=== PATIENT | female | born 1975 | race Caucasian/White ===

== ENCOUNTER → 2017-06-19 11:14 | Outpatient (CLI) | payer MEDICARE, SELFPAY ==
--- NOTE | 2017-06-19 11:19 | MRI_ITS ---
STUDY: MRI BRAIN WITHOUT CONTRAST REASON FOR EXAM: Female, 42 years old. FORGETFULLNESS, FAMILY H/O dementia, H/O PREVIOUS CONCUSSIONS. TECHNIQUE: Standardized multiplanar fat and water weighted pulse sequences were obtained. COMPARISON: None. FINDINGS: Normal size of the ventricles and extra-axial spaces for the patient's age. Normal white matter tracts of the supratentorial brain. Normal bilateral basal ganglia. Normal thalami. There is no extra-axial fluid accumulation. Normal flow voids within the major intracranial circulation suggesting patency by spin echo criteria. Normal sella turcica, pituitary gland, infundibular stalk, optic chiasm and hypothalamus. Normal tectal plate and pineal gland. Normal midbrain, antoine and medulla. Normal cerebellum. Normal basal cisterns. Normal bilateral temporal bones. Normal bilateral internal auditory canals. No demonstrated orbital abnormality, within the constraints of a routine brain study. There is mucoperiosteal inflammatory disease of the paranasal sinuses consistent with mild chronic sinusitis. Normal calvarium and skull base. Normal visualized soft tissue structures. Normal visualized upper cervical spine. MRI/Brain without Contrast IMPRESSION: No acute intracranial abnormality or masses. Electronically Signed: Verna Ray MD at 12:11 EST Tel , Service support ,
== END ==
PROVIDERS: Family Provider Family Medicine; PCP Family Medicine; Visit Provider Family Medicine
DX: R68.89 Other general symptoms and signs (principal); Z82.0 Family history of epilepsy and other diseases of the nervous system
CPT/HCPCS: 70551

== ENCOUNTER 2018-01-06 14:48 | Emergency (ER) | payer MEDICARE, MEDICAID, SELFPAY ==
[2018-01-06 14:49] VITALS: BP 139/94; PULSE 94; RESP 18; TEMP 36.9; O2SAT 97; BMI 50.9
--- NOTE | 2018-01-06 15:22 | ED.VISSUMM ---
- ER Visit Summary Date of Service: 01/06/18 Chief Complaint: Back pain History of Present Illness: The patient is a 42 F with a history of chronic back pain, worsened over the past couple of months. She does report dark, foul-smelling urine. She states that she passed a kidney stone approximately 3 weeks ago. Today she felt nauseated because the pain was so severe. Patient has seen her primary care physician for the same. Physical Examination: Vital signs are unremarkable. Head neck examination unremarkable. Heart is regular rate and rhythm. Lung sounds are clear. Abdomen is soft nontender. Back examination reveals tenderness to the left lumbar paraspinals. Lower exam examination reveals 2+ edema to the right lower leg. Neuro exam reveals no deficits. Test Results: CBC is significant for white count of 16.2 with normal differential is noted. Chemistry studies normal. Urinalysis is normal. CT the flank shows no acute nephrolithiasis or obstruction. There does appear to be a stone in the bladder with a urachal remnant. Emergency Department Course and Treatment: Patient was given morphine and Zofran here. She was observed ambulate into the restroom without difficulty. On repeat evaluation patient does feel significantly improved. Her pain may very well be secondary to this recently passed stone. I see no sign of renal failure or kidney infection. She will be treated with [place] at home along with naproxen. She will return if symptoms worsen. She is to call her doctor tomorrow to arrange a follow-up appointment. Treatment Plan: [] Disposition: Discharge Impression: Left flank pain This note was generated with [employer] dictation software. It may contain incorrect words, spelling, and punctuation that were not noted in review of the chart prior to signing ED Disposition - Plan for ED Patient: Chief Complaint: Back Referrals: Thuan Prieto MD [NON-STAFF] -
[2018-01-06] MEDS: Ondansetron 4 MG/2 ML Vial IV (15:59)
[2018-01-06] MEDS: 0.9% Normal Saline 1,000 ML 150 ML IV (15:59)
[2018-01-06] MEDS: Morphine 4 MG/ML Syringe IV (15:59)
[2018-01-06 16:02] LABS: Bacteria 0 SEEN /hpf (None Seen); Mucous, Urine 0 SEEN /hpf (<or=2+); White Blood Cells 0 SEEN /hpf (0-5)
[2018-01-06 16:04] LABS: Color, Urine Yellow (Yellow); Glucose, Dipstick Normal (Normal); Ketone-Dipstick Negative (Negative); Leukocyte Esterase-Dipstick Negative /ul (Negative); Nitrite-Dipstick Negative (Negative); Occult Blood-Urine 25 /ul (Negative); Protein-Dipstick Negative (Negative); Urine Bilirubin Dipstick Negative (Negative); Urine Clarity Clear (Clear); Urine Urobilinogen Normal (Normal)
[2018-01-06 16:24] LABS: Red Blood Cells-Urine 0-5 SEEN /hpf (0-5); Squamous Epithelial Cells - UA 0-5 SEEN /hpf (5-10)
[2018-01-06 16:36] LABS: Anion Gap 8 (5-15); BUN 12 mg/dL (7-18); Calcium,Total 9.4 mg/dL (8.5-10.1); Chloride 105 mmol/L (98-107); Creatinine, Serum 0.75 mg/dL (0.55-1.02); EST Glomerular Filtration Rate 89 mL/min (>60); Est Glom Filt Rate - Afr Amer 108 mL/min (>60); Estimated Creatinine Clearance 82.66 ml/min; Glucose 88 mg/dL (74-106); Potassium 3.9 mmol/L (3.5-5.1); Sodium Level 138 mmol/L (136-145)
[2018-01-06 16:37] LABS: Absolute Neutrophil Count 10.3 X10^3/uL (2.0-7.7); Basophil# 0.02 X10^3/uL; Basophil% 0.1 % (0-1); Differential Indicated SCAN CRITERIA MET; Eosinophil# 0.26 X10^3/uL; Eosinophils% 1.6 % (0-5); Hematocrit 43.5 % (37-47); Hemoglobin 14.3 g/dl (12.0-15.0); Lymphocyte % 29.7 % (19-41); Mean Corp Hgb Conc 32.9 g/gl (32-36); Mean Corpuscular Hgb 29.3 pg (27.0-32.0); Mean Corpuscular Volume 89.1 fL (81-99); Mean Platelet Vol. 9.9 fl (6.2-12.0); Monocyte# 0.79 X10^3/uL; Monocyte% 4.9 % (0-10); Neutrophil # 10.25 X10^3/uL (2.7-7.7); Neutrophil % 63.5 % (47-70); POSITIVE COUNT NO; POSITIVE DIFFERENTIAL NO; POSITIVE MORPHOLOGY YES; Platelet Count 357 K/mm3 (150-450); RBC Distribution Width CV 13.4 % (11.6-14.6); RBC Distribution Width SD 43.8 fl (35.1-43.9); Red Blood Count 4.88 M/mm3 (4.2-5.4); White Blood Count 16.2 K/mm3 (4.4-11.0)
[2018-01-06 17:14] LABS: Differential Comment SCANNED
--- NOTE | 2018-01-06 17:15 | ED.DEP ---
ED Disposition - Plan for ED Patient: Disposition: Home or Assisted Living Chief Complaint: Back Instructions: ED Flank Pain Uncertain Cause, ED Stone Renal Passed Prescriptions: Hydrocodone/Acetaminophen [[place] 5-325 Tablet] 1 - 2 each PO 4X/DAY PRN PRN 3 Days #12 tablet PRN Reason: Pain Naproxen [Naprosyn] 500 mg PO BID PRN PRN #20 tab PRN Reason: Pain Referrals: Thuan Prieto MD [NON-STAFF] - 5-7 Days
[2018-01-06 17:24] VITALS: BP 125/95; PULSE 90; RESP 18; O2SAT 99
== END 2018-01-06 17:35 | disposition home or self-care (01) ==
PROVIDERS: Emergency Provider Emergency Medicine
DX: R10.9 Unspecified abdominal pain (principal); M54.5 Low back pain; G89.29 Other chronic pain; R60.0 Localized edema; N21.0 Calculus in bladder; J44.9 Chronic obstructive pulmonary disease, unspecified; K21.9 Gastro-esophageal reflux disease without esophagitis; F41.9 Anxiety disorder, unspecified; F32.9 Major depressive disorder, single episode, unspecified; Z87.442 Personal history of urinary calculi; Z87.440 Personal history of urinary (tract) infections; Z72.0 Tobacco use
CPT/HCPCS: 74176; 80048; 81001; 85025; 96361; 96374; 96375; 99284; J7030; A4216; J2405

== ENCOUNTER 2018-05-06 17:07 | Emergency (ER) | payer MEDICARE, MEDICAID, SELFPAY ==
[2018-05-06 17:09] VITALS: BP 145/114; PULSE 99; RESP 17; TEMP 37.2; O2SAT 99; BMI 51.7
--- NOTE | 2018-05-06 17:13 | EKG12_ITS ---
Test Reason : REPEAT Blood Pressure : / mmHG Vent. Rate : 084 BPM Atrial Rate : 084 BPM P-R Int : 130 ms QRS Dur : 084 ms QT Int : 386 ms P-R-T Axes : 015 057 028 degrees QTc Int : 456 ms Normal sinus rhythm Normal ECG Confirmed by ANGELA FRANCO, NELSON ([id number]), fan mail editor JYOTSNA MANSFIELD ([id number]) on 05/09/2018 3:17:43 PM Referred By: CUBA Confirmed By:NELSON MILLER MD
[2018-05-06 17:15] VITALS: O2SAT 100
[2018-05-06] MEDS: Aspirin 81 MG TAB.CHEW 324 MG PO (17:17)
--- NOTE | 2018-05-06 17:18 | RAD_ITS ---
STUDY: X-RAY CHEST REASON FOR EXAM: Female, 42 years old. Chest pain. TECHNIQUE: Single AP portable view of the chest. COMPARISON: December 18, 2013. FINDINGS: The lungs are clear and expanded. There is no demonstrated pleural abnormality. Normal size heart. Normal mediastinum and jalyn. Normal visualized pulmonary arteries. Normal visualized aortic arch and descending thoracic aorta. Normal visualized thoracic spine. Normal visualized ribs, clavicles, and shoulders. There is no demonstrated abnormality of the visualized soft tissue structures of the upper abdomen. RAD/Chest 1 View (Portable) IMPRESSION: Normal x-ray examination of the chest. Electronically Signed: Damian Berg MD at 17:42 EST , Service support ,
--- NOTE | 2018-05-06 17:20 | ED.VISSUMM ---
- ER Visit Summary Date of Service: 05/06/18 Chief Complaint: Chest pain and cough History of Present Illness: The patient is a 42 F past medical history of asthma and COPD. Patient is never had a cardiac catheterization. She denies any history of DVT or PE. No hemoptysis. No calf pain or swelling. She denies any recent travel or hospitalization. She states the last months she has had a chronic cough is been nonproductive primarily. Over the last 2 days she has developed pain in her left side of her back and now radiates to the left side of her chest. She denies any radiation to her abdomen or extremities. She denies any nausea, vomiting, diarrhea or any significant dyspnea. Her father has significant cardiac disease including prior MIs, stents and defibrillator. She smokes a pack of cigarettes a day. Patient also took 2 sublingual nitroglycerin today at home which really did not change her pain. Physical Examination: Middle-aged female no acute distress initial blood pressure elevated 145/114. Pulse is 90% room air no signs of hypoxia. No distress. H EENT exam unremarkable. Neck nontender no lymphadenopathy. Lungs clear to auscultation bilaterally. Heart regular rhythm rate about 90. No murmur. Anterior chest wall nontender. Abdomen soft. Obese. Nontender, nondistended, normal bowel sounds without peritoneal signs. No hernias or masses. Nondistended. Patient moving all 4 extremities. Neurovascularly intact. Calves are nontender without edema or cords. Neurologically she is awake alert. Moving all 4 extremities. 5 out of 5 loom fixer strength bilaterally. Dorsi plantar flexion intact. Anterior chest and back are completely nontender. No ecchymosis or bruising. No subcu air crepitance. Test Results: Patient undergo cardiac workup. House and otherwise unremarkable. Chemistries were normal with normal creatinine and gap. Initial troponin was normal. Second troponin II hours later was negative. First EKG shows sinus rhythm rate of 91 signs of SD or ischemia. Second repeat EKG was done showed a sinus rhythm rate 84 again was normal and unchanged from the first. Portable 1 view chest x-ray showed no acute abnormality. Normal mediastinum and aorta. Emergency Department Course and Treatment: P.o. aspirin Multiple repeat exams patient is doing well. On repeat exam she did have reproducible left lateral chest wall pain consistent with musculoskeletal etiology. She and I discussed all test results. She will be discharged home with outpatient follow-up. Treatment Plan: Tylenol and Motrin for pain. Follow-up with your doctor. Disposition: Discharge Impression: Acute chest pain secondary to left lateral chest wall pain This note was generated with [employer] dictation software. It may contain incorrect words, spelling, and punctuation that were not noted in review of the chart prior to signing ED Disposition - Plan for ED Patient: Disposition: Home or Assisted Living Chief Complaint: Chest Pain Instructions: ED Chest Pain Atypical Unkn Cause Referrals: Thuan Prieto [Primary Care Provider] - 3-5 Days if not improving Additional Instructions: Tylenol and Motrin for left chest wall pain. Ice to the area. Follow-up with his doctor if not improving.
--- NOTE | 2018-05-06 17:23 | ED.DCSUM_ITS ---
- ER Visit Summary Date of Service: 05/06/18 Chief Complaint: Chest pain and cough History of Present Illness: The patient is a 42 F past medical history of asthma and COPD. Patient is never had a cardiac catheterization. She denies any history of DVT or PE. No hemoptysis. No calf pain or swelling. She denies any recent travel or hospitalization. She states the last months she has had a chronic cough is been nonproductive primarily. Over the last 2 days she has developed pain in her left side of her back and now radiates to the left side of her chest. She denies any radiation to her abdomen or extremities. She denies any nausea, vomiting, diarrhea or any significant dyspnea. Her father has significant cardiac disease including prior MIs, stents and defibrillator. She smokes a pack of cigarettes a day. Patient also took 2 sublingual nitroglycerin today at home which really did not change her pain. Physical Examination: Middle-aged female no acute distress initial blood pressure elevated 145/114. Pulse is 90% room air no signs of hypoxia. No distress. H EENT exam unremarkable. Neck nontender no lymphadenopathy. Lungs clear to auscultation bilaterally. Heart regular rhythm rate about 90. No murmur. Anterior chest wall nontender. Abdomen soft. Obese. Nontender, nondistended, normal bowel sounds without peritoneal signs. No hernias or masses. Nondistended. Patient moving all 4 extremities. Neurovascularly intact. Calves are nontender without edema or cords. Neurologically she is awake alert. Moving all 4 extremities. 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 Dorsi plantar flexion intact. Anterior chest and back are completely nontender. No ecchymosis or bruising. No subcu air crepitance. Test Results: Patient undergo cardiac workup. House and otherwise unremarkable. Chemistries were normal with normal creatinine and gap. Initial troponin was normal. Second troponin II hours later was negative. First EKG shows sinus rhythm rate of 91 signs of OR or ischemia. Second repeat EKG was done showed a sinus rhythm rate 84 again was normal and unchanged from the first. Portable 1 view chest x-ray showed no acute abnormality. Normal mediastinum and aorta. Emergency Department Course and Treatment: P.o. aspirin Multiple repeat exams patient is doing well. On repeat exam she did have reproducible left lateral chest wall pain consistent with musculoskeletal etiology. She and I discussed all test results. She will be discharged home with outpatient follow-up. Treatment Plan: Tylenol and Motrin for pain. Follow-up with your doctor. Disposition: Discharge Impression: Acute chest pain secondary to left lateral chest wall pain This note was generated with [employer] dictation software. It may contain incorrect words, spelling, and punctuation that were not noted in review of the chart prior to signing ED Disposition - Plan for ED Patient: Disposition: Home or Assisted Living Chief Complaint: Chest Pain Instructions: ED Chest Pain Atypical Unkn Cause Referrals: Tuhan Prieto [Primary Care Provider] - 3-5 Days if not improving Additional Instructions: Tylenol and Motrin for left chest wall pain. Ice to the area. Follow-up with his doctor if not improving.
[2018-05-06 17:40] LABS: Absolute Lymphocyte Count 5.09 X10^3/ul (0.83-4.51); Basophil# 0.03 X10^3/uL; Basophil% 0.2 % (0-1); Eosinophils% 1.3 % (0-5); Hematocrit 41.9 % (37-47); Hemoglobin 13.8 g/dl (12.0-15.0); Lymphocyte # 5.09 X10^3/ul (4.0); Lymphocyte % 33.3 % (19-41); Mean Corp Hgb Conc 32.9 g/gl (32-36); Mean Corpuscular Hgb 29.6 pg (27.0-32.0); Mean Corpuscular Volume 89.7 fL (81-99); Monocyte# 0.89 X10^3/uL; Monocyte% 5.8 % (0-10); Neutrophil # 9.03 X10^3/uL (2.7-7.7); Neutrophil % 59.2 % (47-70); Platelet Count 373 K/mm3 (150-450); RBC Distribution Width CV 13.3 % (11.6-14.6); RBC Distribution Width SD 43.2 fl (35.1-43.9); Red Blood Count 4.67 M/mm3 (4.2-5.4); White Blood Count 15.3 K/mm3 (4.4-11.0)
[2018-05-06 17:44] LABS: Differential Indicated SCAN CRITERIA MET; POSITIVE COUNT NO; POSITIVE DIFFERENTIAL YES; POSITIVE MORPHOLOGY YES
[2018-05-06 18:13] LABS: Anion Gap 9 (5-15); BUN 17 mg/dL (7-18); BUN/Creat Ratio 21.8 RATIO (10-20); Calcium,Total 8.9 mg/dL (8.5-10.1); Chloride 107 mmol/L (98-107); Creatinine, Serum 0.78 mg/dL (0.55-1.02); EST Glomerular Filtration Rate 85 mL/min (>60); Est Glom Filt Rate - Afr Amer 103 mL/min (>60); Estimated Creatinine Clearance 79.48 ml/min; Glucose 111 mg/dL (74-106); Potassium 4.6 mmol/L (3.5-5.1); Sodium Level 139 mmol/L (136-145)
[2018-05-06 18:15] LABS: Atypical Lymphocyte 1+ %
--- NOTE | 2018-05-06 18:40 | EKG12_ITS ---
Test Reason : CP Blood Pressure : / mmHG Vent. Rate : 091 BPM Atrial Rate : 091 BPM P-R Int : 110 ms QRS Dur : 076 ms QT Int : 364 ms P-R-T Axes : 030 043 007 degrees QTc Int : 447 ms Sinus rhythm Confirmed by ANGELA FRANCO, NELSON ([id number]), marketing editor JYOTSNA MANSFIELD ([id number]) on 05/09/2018 3:18:03 PM Referred By: JOCELINE Confirmed By:NELSON MILLER MD
[2018-05-06] MEDS: HYDROcodone Bitartrate/Apap 5/325 Tablet PO (18:44)
[2018-05-06 19:04] VITALS: BP 128/84; PULSE 84; RESP 14; O2SAT 100
--- NOTE | 2018-05-06 19:43 | ED.DEP ---
ED Disposition - Plan for ED Patient: Disposition: Home or Assisted Living Chief Complaint: Chest Pain Instructions: ED Chest Pain Atypical Unkn Cause Referrals: Thuan Prieto [Primary Care Provider] - 3-5 Days if not improving Additional Instructions: Tylenol and Motrin for left chest wall pain. Ice to the area. Follow-up with his doctor if not improving.
[2018-05-06 19:47] VITALS: BP 123/89; PULSE 85; RESP 19; O2SAT 95
[2018-05-06 20:08] VITALS: BP 112/66; PULSE 84; RESP 15
[2018-05-06 20:11] VITALS: BP 112/66; PULSE 84; RESP 15
== END 2018-05-06 20:17 | disposition home or self-care (01) ==
PROVIDERS: Emergency Provider Emergency Medicine; Family Provider Family Medicine
DX: R07.89 Other chest pain (principal); J44.9 Chronic obstructive pulmonary disease, unspecified; R03.0 Elevated blood-pressure reading, without diagnosis of hypertension; F17.210 Nicotine dependence, cigarettes, uncomplicated; Z82.49 Family history of ischemic heart disease and other diseases of the circulatory system
CPT/HCPCS: 71045; 80048; 84484; 85025; 93005; 99285; A4216

== ENCOUNTER 2019-03-05 12:19 | Emergency (ER) | payer MEDICARE, MEDICAID, SELFPAY ==
[2019-03-05 12:22] VITALS: BP 131/75; PULSE 85; RESP 18; TEMP 36.9; O2SAT 97; BMI 42.9
--- NOTE | 2019-03-05 12:35 | RAD_ITS ---
STUDY: X-RAY CHEST REASON FOR EXAM: Female, 43 years old. 3 day history of cough and increasing shortness of breath. TECHNIQUE: PA and lateral views of the chest. COMPARISON: Comparison is made with prior study dated May 06, 2018. FINDINGS: The lungs are clear and expanded. Scattered calcified granulomas. There is no demonstrated pleural abnormality. Normal size heart. Normal mediastinum and jalyn. Normal visualized pulmonary arteries. Normal visualized aortic arch and descending thoracic aorta. There are mild degenerative changes of the visualized thoracic spine. Normal visualized ribs, clavicles, and shoulders. There is no demonstrated abnormality of the visualized soft tissue structures of the upper abdomen. RAD/Chest PA and Lateral IMPRESSION: Scattered calcified granulomas. No acute abnormalities. Electronically Signed: Michael Jacome, at 12:58 EDT , Service support ,
[2019-03-05 14:33] VITALS: BP 122/72; PULSE 81; RESP 14; O2SAT 96
--- NOTE | 2019-03-05 15:18 | ED.VISSUMM ---
- ER Visit Summary Date of Service: 03/05/19 Chief Complaint: Cough, shortness of breath History of Present Illness: The patient is a 43 F presenting with cough, shortness of breath. She states this started approximately one week ago. She has had a productive cough, shortness of breath, sore throat, subjective fever, chills. She states her daughter's friend who has strep throat used her toothbrush accidentally. She has been using albuterol at home with some improvement. She has painful swallowing, no difficulty swallowing. She denies PE/DVT risk factors. Denies chest pain. She has a history of asthma and COPD. She is a smoker. Physical Examination: Vitals are stable. Patient is afebrile. Alert no acute distress. HEENT exam pharyngeal erythema with no exudate. Uvula is midline Neck is supple. No meningismus Lungs are wheezing bilaterally. Heart is regular rate and rhythm. Abdomen is soft nontender nondistended. Extremities are unremarkable. Skin is warm and dry. No rash No focal neurologic deficit. Remainder of exam is unremarkable. Emergency Department Course and Treatment: Patient was given albuterol, Atrovent aerosols. Chest x-ray shows scattered calcified granulomas. No acute abnormalities. Rapid strep is negative. Pulse ox with ambulation is between 92-97% on room air. Patient feels much improved following breathing treatments. Lung sounds are improved. She is given prescription for prednisone and Tessalon. She states she has albuterol MDI at home. She is advised to follow up with her primary care physician. Advised return to ED for worsening complaints. Disposition: Discharge home Impression: Bronchitis This note was generated with [email or web address] dictation software. It may contain incorrect words, spelling, and punctuation that were not noted in review of the chart prior to signing ED Disposition - Plan for ED Patient: Disposition: Home or Assisted Living Instructions: BRONCHITIS with Wheezing (Adult) Prescriptions: Prednisone [Deltasone] 40 mg PO DAILY #10 tab Prescription Printed Benzonatate [Tessalon Perle] 200 mg PO TID PRN PRN #20 cap PRN Reason: Cough Prescription Printed Referrals: Thuan Prieto [Primary Care Provider] -
[2019-03-05] MEDS: Ipratropium/Albuterol Sulfate 3 ML AMPUL.NEB INHALATION (15:31)
[2019-03-05 15:32] VITALS: PULSE 80; RESP 18
[2019-03-05] MEDS: Albuterol 2.5 MG/3 ML VIAL.NEB. INHALATION ×2 (15:35)
[2019-03-05 15:47] VITALS: BP 113/63; PULSE 88; RESP 15; O2SAT 96
[2019-03-05 15:57] VITALS: O2SAT 97
[2019-03-05] MEDS: predniSONE 20 MG Tablet 60 MG PO (16:23)
[2019-03-05 16:25] VITALS: PULSE 105; RESP 14; O2SAT 98
== END 2019-03-05 16:25 | disposition home or self-care (01) ==
PROVIDERS: Emergency Provider Emergency Medicine; Family Provider Family Medicine
DX: J40 Bronchitis, not specified as acute or chronic (principal); J44.9 Chronic obstructive pulmonary disease, unspecified; F17.200 Nicotine dependence, unspecified, uncomplicated
CPT/HCPCS: 71046; 87880; 94640; 99282

== ENCOUNTER 2019-06-09 17:11 | Emergency (ER) | payer MEDICARE, MEDICAID, SELFPAY ==
[2019-06-09 17:13] VITALS: BP 137/64; PULSE 84; RESP 18; TEMP 37.1; O2SAT 96; BMI 44.6
[2019-06-09 17:36] VITALS: BP 120/58; PULSE 88; RESP 16; O2SAT 96; O2SAT 97
--- NOTE | 2019-06-09 17:58 | EKG12_ITS ---
Test Reason : SOB Blood Pressure : / mmHG Vent. Rate : 078 BPM Atrial Rate : 078 BPM P-R Int : 142 ms QRS Dur : 092 ms QT Int : 406 ms P-R-T Axes : 057 057 046 degrees QTc Int : 462 ms Normal sinus rhythm Normal ECG Confirmed by FREDDY KEANE ([id number]), editor department ROMEO SADLER ([id number]) on 06/11/2019 10:32:16 AM Referred By: RYDER Confirmed By:FREDDY KEANE
--- NOTE | 2019-06-09 18:01 | ED.DCSUM_ITS ---
History of Present Illness Chief Complaint: Shortness of Breath Informant: Patient Onset: Month(s) Timing: Continuous Quality: Dyspnea on exertion, Wheezing Associated Symptoms: Chills, Cough, Fever, Yellow sputum Chest Pain: Tightness Narrative: Patient is a 44-year-old female with history of COPD, asthma and depression as well as tobacco abuse presenting with worsening shortness of breath. Patient states she is been short of breath for the past 3 months. She was seen in the ER in March, 3 months ago where she was put on antibiotics and steroids. She briefly felt better but then started to worsen again. Patient states she is had a cough that is productive of yellow sputum. Associated wheezing. She is having worsening dyspnea on exertion which is prior to the emergency room today. She states she had a minute fevers, most recently 2 days ago at 102.0 ?F patient has chronic swelling of her legs but denies any change in that. She denies a history of DVT or PE. She states she has cut back on her smoking. She is not followed up with her primary care physician because she states she does not like her PCP. PE Risk Factors: Negative for: Cancer, OCP + Smoking + > 35, Prior DVT or PE, Recent immobilization, Recent surgery, Recent travel Past Medical History - Allergies and Home Meds Allergies/Adverse Reactions: Allergies cefaclor [From Ceclor] Allergy (Verified 06/09/19 17:13) Hives erythromycin base [Erythromycin Base] Allergy (Verified 06/09/19 17:13) Hives moxifloxacin HCl [From Avelox] Allergy (Verified 06/09/19 17:13) Hives Penicillins Allergy (Verified 06/09/19 17:13) Hives AVALOX Allergy (Uncoded 06/09/19 17:13) Hives Primary Care Physician: Thuan Prieto [Primary Care Provider] - Past Medical History: - - Deression, COPD/asthma Surgical History: no surgical history, hysterectomy, - Smoking Status: Current every day smoker - Family History Maternal Family History: Reports: Heart Disease Review of Systems General: Reports: Chills, Fever, Malaise. Denies: Sweats Eyes: Denies: Visual changes - bilaterally, Diplopia ENT: Denies: Rhinorrhea, Sore throat Cardiovascular: Denies: Chest pain, Palpitations Respiratory: Reports: Dyspnea, Cough, Sputum, Dyspnea on exertion Gastrointestinal: Denies: Abdominal pain, Nausea, Vomiting, Diarrhea, Melena, Hematochezia Genitourinary: Denies: Dysuria, Hematuria, Frequency Musculoskeletal: Denies: Back pain, Extremity Pain Skin: Denies: Rash, Wounds Neurological: Denies: Headache, Weakness, Numbness Physical Exam Vital Signs/Narrative: Vital Signs Temp Pulse Resp BP Pulse Ox 06/09/19 17:36 88 16 120/58 L 96 06/09/19 17:13 98.7 F 84 18 137/64 H 96 Inital Vital Signs reviewed: Yes General: Well nourished, Well developed, Obese, No Acute Distress Head: Normocephalic, Atraumatic Eyes: Perrl, EOMI ENT: Moist mucous membranes, No rhinorrhea Neck: Supple, Nontender, No JVD Cardiovascular: Regular rate, Regular rhythm, No murmurs Respiratory: No distress, Chest nontender, Wheezing - Inspiratory and expiratory?bilateral, Diminished, Decreased Air Movement Abdomen: Soft, Nontender, Nondistended, Normal bowel sounds Back: Nontender, Normal Inspection Extremities: Nontender, No edema Skin: Normal color, No rash Neurological: Alert, Oriented x3, Cranial nerves II-XII grossly intact, Normal Strength, Normal Sensation Psychological: Normal affect, Normal Mood Diagnostic/Tx/Re-eval Chest X-Ray - ED: 2 View, Read by ED Physician, Read by Radiologist, No Acute Disease Clinical Impression(s) from Imaging Studies Chest X-Ray 06/09/19 18:15 IMPRESSION: Normal x-ray examination of the chest. Electronically Signed: Luis Mohan MD at 18:44 EST , Service support , Laboratory Data 06/09/19 06/09/19 06/09/19 18:08 18:08 18:08 WBC 14.0 H RBC 4.59 Hgb 13.4 Hct 40.1 MCV 87.4 MCH 29.2 MCHC 33.4 RDW Std Deviation 40.9 RDW Coeff of Saeid 12.9 Plt Count 300 MPV 10.1 Immature Gran % (Auto) 0.400 Neut % (Auto) 58.7 Lymph % (Auto) 33.5 [place] % (Auto) 5.6 Eos % (Auto) 1.4 Baso % (Auto) 0.4 Absolute Neuts (auto) 8.2 H Absolute Lymphs (auto) 4.70 H Nucleated RBC % 0 Reactive Lymphocytes 2+ Platelet Estimate ADEQUATE RBC Morphology NORM C+C Sodium 140 Potassium 3.4 L Chloride 109 H Carbon Dioxide 25.0 Anion Gap 6 BUN 11 Creatinine 0.76 Estim Creat Clear Calc 79.87 Est GFR (MDRD) Af Amer 105 Est GFR (MDRD) Non-Af 87 BUN/Creatinine Ratio 14.5 Glucose 114 H Calcium 8.6 B-Natriuretic Peptide 13.7 - Rhythm Strip Rhythm Strip: Sinus Rhythm Rate: 78 Ectopy: None - EKG Initial EKG Interpretation: Sinus Rhythm, - - Sinus rhythm at a rate of 78Normal intervalsNormal axisNormal ST segments Treatment - Dyspnea: Albuterol, Atrovent Repeat Evaluation: Improved - Medical Decision Making Patient is evaluated for worsening cough, chest tightness and wheezing. She is wheezing on exam. She feels that she has dyspnea on exertion however her vital signs are normal. She does not have any significant edema and I do not think this is cardiogenic. proBNP is normal. She is not have any pulmonary vascular congestion or cardiac enlargement on her chest x-ray. No infiltrate on chest x- ray. Patient is improvement after receiving stacked aerosols did she feels much better. Likely this is COPD/asthma exacerbation. I am not sure about the chronicity of her symptoms however. Patient is counseled that she needs to follow-up with her primary care doctor. Patient does have a leukocytosis. Chart review shows that patient has had leukocytosis on other ED evaluations with a noninfectious cause. Do not suspect infection I do not think antibiotics are indicated. Likely this is more reactive. Do not think she requires inpatient admission at this time. Her PE RC score is low risk I am not concerned for PE. Patient will be discharged home with a course of steroids, and albuterol inhaler as well as Robitussin-AC for her cough. She had been prescribed Tessalon Perles in the past however they were too expensive with her insurance. Patient is counseled on signs and symptoms requiring return to the emergency room. Patient verbalizes agreement and understand this plan. Patient discharged home in stable and improved condition. ED Disposition - Plan for ED Patient: Disposition: Home or Assisted Living Diagnosis: Reactive airway disease with wheezing Instructions: BRONCHITIS with Wheezing (Adult) Prescriptions: Prednisone [Deltasone] 40 mg PO DAILY #10 tab Transmission Status: Pending to [facility] #30 Guaifenesin/Codeine [Robitussin AC] 10 ml PO Q6H PRN PRN 3 Days #120 udc PRN Reason: Cough Transmission Status: Sent to [facility] #30 Referrals: Thuan Prieto [Primary Care Provider] - Additional Instructions: It is very important that you follow-up with your primary care doctor for further evaluation of your wheezing and respiratory symptoms. You might need to be started on some maintenance medications. Return to the emergency room with worsening symptoms. Please continue to try to quit smoking.
[2019-06-09] MEDS: Ipratropium/Albuterol Sulfate 3 ML AMPUL.NEB INHALATION (18:12)
--- NOTE | 2019-06-09 18:15 | RAD_ITS ---
STUDY: X-RAY CHEST REASON FOR EXAM: Female, 44 years old. Cough. Short of breath. COPD. TECHNIQUE: Frontal and lateral views of the chest. COMPARISON: 03/05/2019. FINDINGS: The lungs are clear and expanded. There is no demonstrated pleural abnormality. Normal size heart. Normal mediastinum and jalyn. Normal visualized pulmonary arteries. Normal visualized aortic arch and descending thoracic aorta. Normal visualized thoracic spine. Normal visualized ribs, clavicles, and shoulders. There is no demonstrated abnormality of the visualized soft tissue structures of the upper abdomen. RAD/Chest PA and Lateral IMPRESSION: Normal x-ray examination of the chest. Electronically Signed: Luis Mohan MD at 18:44 EST , Service support ,
[2019-06-09 18:25] VITALS: PULSE 88; RESP 16
[2019-06-09 18:28] LABS: Absolute Neutrophil Count 8.2 X10^3/uL (2.0-7.7); Basophil# 0.06 X10^3/uL; Basophil% 0.4 % (0-1); Eosinophils% 1.4 % (0-5); Hematocrit 40.1 % (37-47); Hemoglobin 13.4 g/dL (12.0-15.0); Lymphocyte % 33.5 % (19-41); Mean Corp Hgb Conc 33.4 g/dL (32-36); Mean Corpuscular Hgb 29.2 pg (27.0-32.0); Mean Corpuscular Volume 87.4 fL (81-99); Mean Platelet Vol. 10.1 fl (6.2-12.0); Monocyte# 0.79 X10^3/uL; Monocyte% 5.6 % (0-10); NRBC Flagged by Analyzer 0 % (0-5); Neutrophil # 8.24 X10^3/uL (2.7-7.7); Neutrophil % 58.7 % (47-70); POSITIVE MORPHOLOGY YES; Platelet Count 300 K/mm3 (150-450); RBC Distribution Width CV 12.9 % (11.6-14.6); RBC Distribution Width SD 40.9 fl (35.1-43.9); Red Blood Count 4.59 M/mm3 (4.2-5.4)
[2019-06-09 18:38] VITALS: PULSE 77; RESP 14
[2019-06-09] MEDS: Albuterol 2.5 MG/3 ML VIAL.NEB. INHALATION ×2 (18:38)
[2019-06-09 18:39] LABS: Anion Gap 6 (5-15); BUN 11 mg/dL (7-18); BUN/Creat Ratio 14.5 RATIO (10-20); Calcium,Total 8.6 mg/dL (8.5-10.1); Chloride 109 mmol/L (98-107); Creatinine, Serum 0.76 mg/dL (0.55-1.02); EST Glomerular Filtration Rate 87 mL/min (>60); Est Glom Filt Rate - Afr Amer 105 mL/min (>60); Estimated Creatinine Clearance 79.87 ml/min; Glucose 114 mg/dL (74-106); Potassium 3.4 mmol/L (3.5-5.1); Sodium Level 140 mmol/L (136-145)
[2019-06-09 19:07] LABS: BNP,B-Type NATRIURETIC PEPTIDE 13.7 pg/mL (0-100)
[2019-06-09 19:11] LABS: Differential Indicated SCAN CRITERIA MET; Platelet Estimate ADEQUATE (ADEQ); Red Cell Morphology NORM C+C NORMAL (NORM C&C)
[2019-06-09 19:12] LABS: Reactive Lymphocyte 2+
[2019-06-09 19:34] VITALS: PULSE 96; RESP 24; O2SAT 96
[2019-06-09 20:11] VITALS: BP 120/70; PULSE 84; RESP 18; O2SAT 97
--- NOTE | 2019-06-09 20:12 | ED.RN ---
REVIEWED D/C INSTRUCTIONS, FOLLOW UP CARE, PRESCRIPTION, AND S/S THAT WOULD WARRANT A RETURN TO THE ED WITH PT. PT VERBALIZED AN UNDERSTANDING AND DENIES FURTHER QUESTIONS FOR THIS RN. PT SKIN P/W/D, RESP EVEN AND UNLABORED, PT A&O X 3, NO DISTRESS NOTED. PT AMBULATED OUT OF ED, GAIT STEADY.
== END 2019-06-09 20:13 | disposition home or self-care (01) ==
PROVIDERS: Emergency Provider Emergency Medicine
DX: J44.9 Chronic obstructive pulmonary disease, unspecified (principal); F32.9 Major depressive disorder, single episode, unspecified; E66.9 Obesity, unspecified; Z79.899 Other long term (current) drug therapy; Z88.1 Allergy status to other antibiotic agents; Z88.0 Allergy status to penicillin; Z72.0 Tobacco use
CPT/HCPCS: 71046; 80048; 83880; 85025; 93005; 94640; 96360; 99284; J7030; A4216

== ENCOUNTER 2019-06-26 20:41 | Emergency (ER) | payer MEDICARE, MEDICAID, SELFPAY ==
[2019-06-26 20:42] VITALS: BP 133/81; PULSE 85; RESP 18; TEMP 36.7; O2SAT 98; BMI 47.0
--- NOTE | 2019-06-26 21:07 | EKG12_ITS ---
Test Reason : CP Blood Pressure : / mmHG Vent. Rate : 097 BPM Atrial Rate : 097 BPM P-R Int : 124 ms QRS Dur : 076 ms QT Int : 344 ms P-R-T Axes : 072 054 039 degrees QTc Int : 436 ms Normal sinus rhythm Normal ECG Confirmed by FREDDY KEANE ([id number]), brands editor JYOTSNA MANSFIELD ([id number]) on 06/29/2019 3:35:49 PM Referred By: COTY Confirmed By:FREDDY KEANE
--- NOTE | 2019-06-26 21:07 | CT_ITS ---
HISTORY: LOW ABD PAIN AND BLOATING/RT CHEST PAIN AFTER GREASY MEAL ADDITIONAL HISTORY: None provided. TECHNIQUE: CT images were obtained of the abdomen and pelvis without IV contrast. Enteric contrast was not given. Number of images including paperwork: 440. A radiation dose optimization technique was used for this scan. COMPARISON: 01/06/2018. CTA chest 12/19/2013 FINDINGS: Evaluation of the abdominopelvic organs is limited in the absence of contrast. LOWER THORAX: 1.5 cm low-density right lower lobe lung nodule, previously 7 mm on 12/19/2013. Dependent atelectasis. LIVER: No concerning focal lesion. GALLBLADDER: No radiopaque calculi. BILE DUCTS: No significant biliary dilatation. SPLEEN: Unremarkable. PANCREAS: Unremarkable. ADRENAL GLANDS: Unremarkable. KIDNEYS/URETERS: Unremarkable. BOWEL: No bowel obstruction. No significant bowel wall thickening. No localized inflammation. APPENDIX: Normal. FREE FLUID: Trace free fluid. FREE AIR: None. LYMPH NODES: No pathologic appearing adenopathy. PERITONEUM, RETROPERITONEUM AND MESENTERY: Otherwise unremarkable. VASCULATURE: Atherosclerotic calcification. ABDOMINAL WALL: Unremarkable. PELVIS: Unremarkable bladder. Hysterectomy. OSSEOUS AND SOFT TISSUE STRUCTURES: No acute skeletal findings. CT/Abdomen/Pelvis W IV Cont ONLY IMPRESSION: No acute abdominopelvic abnormality. Enlarging right lower lobe lung nodule compared to 2014. Consider PET/CT for further evaluation. Individualized dose optimization techniques were used for this CT. at 2234 Reported and signed by: Deja Dong MD Electronically Signed: Deja Dong MD at 22:34 EST Tel , Service support ,
--- NOTE | 2019-06-26 21:09 | ED.DCSUM_ITS ---
History of Present Illness Chief Complaint: Abd Pain Informant: Patient - Abdominal Pain/Flank Pain Onset: Today Timing: Continuous Quality: Sharp Location: Epigastric Worsened by: Food Relieved by: Nothing - Nausea/Vomiting/Emesis GI Symptom: Nausea. Negative for: Vomiting - Diarrhea/Melena/Hematochezia GI Symptom: Diarrhea Onset: Days Stool Quality: Loose Narrative: Patient is a 44-year-old female presenting with abdominal pain. Patient states her pain initially started last night after eating lasagna. She states it is a bloating sensation and then she has pain in her lower abdomen that radiates to her her epigastric area and then into her chest. She states this morning she had an exam which felt better. For lunch she had a piece of pizza in her symptoms started again. For dinner she had [employer] and her symptoms became more severe. Patient has associated nausea but no vomiting. The pain is sharp. It does not radiate to her back. It does radiate slightly into her chest. She is been having diarrhea for the past week. She states she is having 2 loose bowel movements a day. She denies any black or blood in her stool. She denies any history of acid reflux. She is had a hysterectomy in the past. She denies any other complaints at this time. Past Medical History - Allergies and Home Meds Allergies/Adverse Reactions: Allergies cefaclor [From Ceclor] Allergy (Verified 06/26/19 20:46) Hives erythromycin base [Erythromycin Base] Allergy (Verified 06/26/19 20:46) Upset Stomach moxifloxacin HCl [From Avelox] Allergy (Verified 06/26/19 20:46) Hives Penicillins Allergy (Verified 06/26/19 20:46) Upset Stomach AVALOX Allergy (Uncoded 06/26/19 20:46) Hives Primary Care Physician: Thuan Prieto [Primary Care Provider] - Surgical History: no surgical history, hysterectomy, - Smoking Status: Current every day smoker - Family History Maternal Family History: Reports: Heart Disease Review of Systems General: Denies: Chills, Fever, Sweats Eyes: Denies: Visual changes - bilaterally, Diplopia ENT: Denies: Rhinorrhea, Sore throat Cardiovascular: Denies: Chest pain, Palpitations Respiratory: Reports: -. Denies: Dyspnea, Cough, Dyspnea on exertion Gastrointestinal: Reports: Abdominal pain, Nausea, Vomiting, Diarrhea. Denies: Melena, Hematochezia Genitourinary: Denies: Dysuria, Hematuria, Frequency Musculoskeletal: Denies: Back pain, Extremity Pain Skin: Denies: Rash, Wounds Neurological: Denies: Headache, Weakness, Numbness Physical Exam Vital Signs/Narrative: Vital Signs Temp Pulse Resp BP Pulse Ox 06/26/19 20:42 98.1 F 85 18 133/81 H 98 Inital Vital Signs reviewed: Yes General: Well nourished, Well developed, Obese, No Acute Distress Head: Normocephalic, Atraumatic Eyes: Perrl, EOMI ENT: Moist mucous membranes, No rhinorrhea Neck: Supple, Nontender Cardiovascular: Regular rate, Regular rhythm, No murmurs Respiratory: No distress, CTA bilaterally, Chest nontender Abdomen: Soft, Nondistended, Tender - diffuse, Hyperactive bowel sounds. Negative for: Guarding, Rebound tenderness Back: Nontender, Normal Inspection. Negative for: CVA tenderness Extremities: Nontender, No edema Skin: Normal color, No rash Neurological: Alert, Oriented x3, Cranial nerves II-XII grossly intact, Normal Strength, Normal Sensation Psychological: Normal affect, Normal Mood Diagnostic/Tx/Re-eval Clinical Impression(s) from Imaging Studies Abdomen/Pelvis CT 06/26/19 21:07 IMPRESSION: No acute abdominopelvic abnormality. Enlarging right lower lobe lung nodule compared to 2013. Consider PET/CT for further evaluation. Individualized dose optimization techniques were used for this CT. at 2234 Reported and signed by: Deja Dong MD Electronically Signed: Deja Dong MD at 22:34 EST Tel , Service support , Laboratory Data 06/26/19 06/26/19 06/26/19 20:45 20:45 21:30 WBC 17.0 H RBC 5.04 Hgb 14.9 Hct 45.8 MCV 90.9 MCH 29.6 MCHC 32.5 RDW Std Deviation 43.9 RDW Coeff of Saeid 13.2 Plt Count 278 MPV 11.4 Immature Gran % (Auto) 0.400 Neut % (Auto) 61.1 Lymph % (Auto) 32.1 [place] % (Auto) 4.8 Eos % (Auto) 1.2 Baso % (Auto) 0.4 Absolute Neuts (auto) 10.4 H Absolute Lymphs (auto) 5.46 H Nucleated RBC % 0 Differential Comment SCANNED Sodium 140 Potassium 4.1 Chloride 110 H Carbon Dioxide 28.0 Anion Gap 2 L BUN 10 Creatinine 0.81 Estim Creat Clear Calc 74.94 Est GFR (MDRD) Af Amer 97 Est GFR (MDRD) Non-Af 80 BUN/Creatinine Ratio 12.3 Glucose 93 Calcium 8.8 Total Bilirubin 0.20 Direct Bilirubin 0.07 AST 18 ALT 25 Alkaline Phosphatase 92 Troponin I < 0.015 Total Protein 7.3 Albumin 3.3 Globulin 4.0 Lipase 92 Urine Color Yellow Urine Clarity Sl. Cloudy Urine pH 6.0 Ur Specific [place] 1.020 Urine Protein Negative Urine Glucose (UA) Normal Urine Ketones Negative Urine Occult Blood 25 H Urine Nitrite Negative Urine Bilirubin Negative Urine Urobilinogen Normal Ur Leukocyte Esterase Negative Urine RBC 0-5 SEEN Urine WBC 0 SEEN Ur Squamous Epith Cells 0-5 SEEN Urine Bacteria 0 SEEN Urine Mucus 0 SEEN - Rhythm Strip Rhythm Strip: Sinus Rhythm Rate: 97 Ectopy: None - EKG Initial EKG Interpretation: Sinus Rhythm, - - Normal sinus rhythm at a rate of 97 Normal intervals Normal axis Normal ST segments Compared to prior EKG patient has no changes - Medical Decision Making Patient is evaluated for abdominal pain and discomfort. She appears nontoxic in no acute distress. She is initially given IV fluids, morphine and Zofran for her symptoms. She is also given IV Pepcid. Patient has mild improvement of her symptoms. Patient ate about 2 hours prior to arrival so I do not think an ultrasound would be useful at this time as her gallbladder would be contracted, therefore CT of abdomen pelvis is obtained. This does not show any acute process. Patient does have a pulmonary nodule which is shown to have increased in size since prior one. Patient is informed of this and need for outpatient follow-up. She is informed that this potentially could be lung cancer. Patient's blood work shows a leukocytosis of 17. Chart review shows that patient always has a significant leukocytosis even without an acutely infectious process. Her lab work is otherwise normal including CMP and lipase. Patient is afebrile hemodynamically stable in the emergency room. Patient is given a GI cocktail with some improvement of her symptoms. She still has mild tenderness. She is also given oral Bentyl. Patient is counseled that the exact cause of her symptoms is not clear however she is stable for outpatient follow-up. Is possible she has a viral infection causing her symptoms. ED Disposition - Plan for ED Patient: Disposition: Home or Assisted Living Diagnosis: Abdominal pain Instructions: ABDOMINAL PAIN, Unknown Cause, (Female), PULMONARY NODULE, Solitary Prescriptions: Dicyclomine HCl [Bentyl] 20 mg PO TIDAC #20 cap Prescription Printed Famotidine [Pepcid] 20 mg PO BID #28 tab Prescription Printed Ondansetron HCl [Zofran] 4 mg PO Q8 PRN #15 tab PRN Reason: Nausea Prescription Printed Referrals: Thuan Prieto [Primary Care Provider] -
[2019-06-26 21:42] LABS: Bacteria 0 SEEN /hpf (None Seen); Mucous, Urine 0 SEEN /hpf (<or=2+); White Blood Cells 0 SEEN /hpf (0-5)
[2019-06-26 21:47] LABS: Color, Urine Yellow (Yellow); Glucose, Dipstick Normal (Normal); Ketone-Dipstick Negative (Negative); Leukocyte Esterase-Dipstick Negative /ul (Negative); Nitrite-Dipstick Negative (Negative); Occult Blood-Urine 25 /ul (Negative); Protein-Dipstick Negative (Negative); Urine Bilirubin Dipstick Negative (Negative); Urine Clarity Sl. Cloudy (Clear); Urine Urobilinogen Normal (Normal)
[2019-06-26 21:47] LABS: Absolute Lymphocyte Count 5.46 X10^3/uL (0.83-4.51); Absolute Neutrophil Count 10.4 X10^3/uL (2.0-7.7); Basophil# 0.06 X10^3/uL; Basophil% 0.4 % (0-1); Eosinophils% 1.2 % (0-5); Hematocrit 45.8 % (37-47); Hemoglobin 14.9 g/dL (12.0-15.0); Lymphocyte # 5.46 X10^3/ul (4.0); Lymphocyte % 32.1 % (19-41); Mean Corp Hgb Conc 32.5 g/dL (32-36); Mean Corpuscular Hgb 29.6 pg (27.0-32.0); Mean Corpuscular Volume 90.9 fL (81-99); Mean Platelet Vol. 11.4 fl (6.2-12.0); Monocyte# 0.82 X10^3/uL; Monocyte% 4.8 % (0-10); NRBC Flagged by Analyzer 0 % (0-5); Neutrophil % 61.1 % (47-70); POSITIVE DIFFERENTIAL YES; POSITIVE MORPHOLOGY YES; Platelet Count 278 K/mm3 (150-450); RBC Distribution Width CV 13.2 % (11.6-14.6); RBC Distribution Width SD 43.9 fl (35.1-43.9); Red Blood Count 5.04 M/mm3 (4.2-5.4)
[2019-06-26 21:50] LABS: Differential Indicated SCAN CRITERIA MET
[2019-06-26] MEDS: 0.9% Normal Saline 1,000 ML 1000 ML IV (21:53)
[2019-06-26] MEDS: Morphine 4 MG/ML Syringe IV (21:53)
[2019-06-26] MEDS: Ondansetron 4 MG/2 ML Vial IV (21:53)
[2019-06-26 21:54] LABS: Red Blood Cells-Urine 0-5 SEEN /hpf (0-5); Squamous Epithelial Cells - UA 0-5 SEEN /hpf (5-10)
[2019-06-26 22:01] LABS: AST(SGOT) 18 U/L (15-37); Alanine Aminotransfer ALT/SGPT 25 U/L (13-56); Albumin, Serum 3.3 g/dL (3.2-5.0); Alkaline Phosphatase 92 U/L (45-117); Anion Gap 2 (5-15); BUN 10 mg/dL (7-18); BUN/Creat Ratio 12.3 RATIO (10-20); Bilirubin, Direct 0.07 mg/dL (0.00-0.30); Calcium,Total 8.8 mg/dL (8.5-10.1); Chloride 110 mmol/L (98-107); Creatinine, Serum 0.81 mg/dL (0.55-1.02); EST Glomerular Filtration Rate 80 mL/min (>60); Est Glom Filt Rate - Afr Amer 97 mL/min (>60); Estimated Creatinine Clearance 74.94 ml/min; Glucose 93 mg/dL (74-106); Lipase 92 U/L (73-393); Potassium 4.1 mmol/L (3.5-5.1); Protein, Total 7.3 g/dL (6.4-8.2); Sodium Level 140 mmol/L (136-145)
[2019-06-26 22:15] LABS: Differential Comment SCANNED
[2019-06-26] MEDS: Famotidine 200 MG/20 ML MDV 20 MG in 0.9% Normal Saline (Pres. free 8 ML 300 MG IV (22:22)
[2019-06-26 22:42] VITALS: BP 110/62; PULSE 82; RESP 20; O2SAT 95
[2019-06-26] MEDS: Mag Hydrox/Al Hydrox/Simeth 30 ML UDC PO (23:39)
[2019-06-26] MEDS: Dicyclomine 10 MG Capsule 20 MG PO (23:39)
[2019-06-27 00:05] VITALS: BP 99/66; PULSE 81; RESP 19; O2SAT 97
[2019-06-27 00:45] VITALS: BP 100/62; PULSE 80; RESP 20; O2SAT 96
== END 2019-06-27 00:51 | disposition home or self-care (01) ==
PROVIDERS: Emergency Provider Emergency Medicine
DX: R10.30 Lower abdominal pain, unspecified (principal); R11.2 Nausea with vomiting, unspecified; R19.7 Diarrhea, unspecified; R91.1 Solitary pulmonary nodule; R07.89 Other chest pain; F17.200 Nicotine dependence, unspecified, uncomplicated; Z88.1 Allergy status to other antibiotic agents; Z88.0 Allergy status to penicillin; Z90.710 Acquired absence of both cervix and uterus
CPT/HCPCS: 74177; 80048; 80076; 81001; 83690; 84484; 85025; 93005; 96361; 96374; 96375; 99285; J7030; Q9967; A4216; J2405; J3490

== ENCOUNTER 2019-06-28 12:31 | Emergency (ER) | payer MEDICARE, MEDICAID, SELFPAY ==
[2019-06-28 12:33] VITALS: BP 148/82; PULSE 88; RESP 18; TEMP 36.6; O2SAT 99; BMI 46.7
--- NOTE | 2019-06-28 12:44 | US_ITS ---
STUDY: ABDOMINAL ULTRASOUND - RIGHT UPPER QUADRANT REASON FOR VISIT: Female, 44 years old PAIN - PATIENT HAD SAUSAGE AND TOAST X 2 HOURS AGO TECHNIQUE: Ultrasound evaluation of the right upper quadrant was performed with real-time and static smith-scale imaging. TECHNICAL QUALITY: Adequate. COMPARISON: CT of abdomen and pelvis 06/26/2019 FINDINGS: Liver: The liver measures 18 cm. There is normal echogenicity of the liver. The bile ducts are within normal limits. There is hepatic color flow. The direction of portal flow is hepatopetal. There is no demonstrated mass lesion. Gallbladder: Normal distended gallbladder. The gallbladder wall measures 2 mm. There is a positive sonographic Bennett''s sign. There is no pericholecystic fluid. There are no gallstones. Common Bile Duct (C.B.D.): The common bile duct measures 2 mm. Pancreas: Not visualized due to bowel gas. Right Kidney: Normal size of the right kidney. The right kidney measures 12.2 cm. Normal renal cortex. The right cortex measures 2.3 cm. There is no demonstrated renal mass or cyst. There is no right hydronephrosis. US/Gallbladder IMPRESSION: Pancreas not visualized. Otherwise negative study. Electronically Signed: Mesfin Ferraro MD at 14:57 EST , Service support ,
--- NOTE | 2019-06-28 13:00 | ED.DCSUM_ITS ---
- ER Visit Summary Date of Service: 06/28/19 Chief Complaint: Abdominal pain History of Present Illness: The patient is a 44 F who complains of right side abdominal pain. Pain is worse with eating and ambulation. The pain is in her right upper quadrant and right lower quadrant. She was seen at this ED 2 days ago for similar symptoms. Her work-up was unremarkable except for lung nodule. She presents today because her pain is worsening. She had some nausea and an episode of vomiting secondary to pain. She had a fever today. 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 She has a history of partial hysterectomy, asthma, and COPD. Physical Examination: Afebrile and vital signs are unremarkable. Skin normal in color without pallor or jaundice. Heart regular. Lungs clear. Abdomen is tender in the right upper quadrant and right lower quadrant. No guarding or rebound. Test Results: Labs, urine, right upper quadrant ultrasound were ordered. Emergency Department Course and Treatment: Patient was treated with fluids, mor phine, and Zofran while awaiting results. White count 13.6. Otherwise labs and urine unremarkable. Ultrasound showed nothing acute. Patient required additional pain medicine and nausea medicine. Given her continued pain, CT was reordered, this time with p.o. and IV contrast. Prior to the CT resulting, nursing notified me that the patient wanted to leave. She said she had been here for hours and she had enough. While I was working on her paperwork, the CT resulted and was normal. Patient will be discharged. Follow-up with primary care as initially planned. Treatment Plan: As above Disposition: Discharge Impression: Right side abdominal pain This note was generated with [employer] dictation software. It may contain incorrect words, spelling, and punctuation that were not noted in review of the chart prior to signing ED Disposition - Plan for ED Patient: Referrals: Thuan Prieto [Primary Care Provider] -
[2019-06-28 13:12] LABS: Bacteria 0 SEEN /hpf (None Seen); Mucous, Urine 0 SEEN /hpf (<or=2+); Red Blood Cells-Urine 0 SEEN /hpf (0-5); White Blood Cells 0 SEEN /hpf (0-5)
[2019-06-28 13:14] LABS: Color, Urine Yellow (Yellow); Glucose, Dipstick Normal (Normal); Ketone-Dipstick Negative (Negative); Leukocyte Esterase-Dipstick 25 /ul (Negative); Nitrite-Dipstick Negative (Negative); Occult Blood-Urine 25 /ul (Negative); Protein-Dipstick Negative (Negative); Specific Gravity, Urine 1.015 (1.002-1.030); Urine Bilirubin Dipstick Negative (Negative); Urine Clarity Clear (Clear); Urine Urobilinogen Normal (Normal)
[2019-06-28] MEDS: Ondansetron 4 MG/2 ML Vial IV (13:16)
[2019-06-28] MEDS: Morphine 4 MG/ML Syringe IV ×2 (13:16→14:35)
[2019-06-28] MEDS: 0.9% Normal Saline 1,000 ML 1000 ML IV (13:16)
[2019-06-28 13:18] LABS: Absolute Lymphocyte Count 3.97 X10^3/uL (0.83-4.51); Absolute Neutrophil Count 8.6 X10^3/uL (2.0-7.7); Basophil# 0.03 X10^3/uL; Basophil% 0.2 % (0-1); Eosinophil# 0.16 X10^3/uL; Eosinophils% 1.2 % (0-5); Hematocrit 41.4 % (37-47); Hemoglobin 13.5 g/dL (12.0-15.0); Lymphocyte # 3.97 X10^3/ul (4.0); Lymphocyte % 29.2 % (19-41); Mean Corp Hgb Conc 32.6 g/dL (32-36); Mean Corpuscular Hgb 29.5 pg (27.0-32.0); Mean Corpuscular Volume 90.6 fL (81-99); Mean Platelet Vol. 9.9 fl (6.2-12.0); Monocyte# 0.74 X10^3/uL; Monocyte% 5.4 % (0-10); NRBC Flagged by Analyzer 0 % (0-5); Neutrophil # 8.63 X10^3/uL (2.7-7.7); Neutrophil % 63.6 % (47-70); Platelet Count 324 K/mm3 (150-450); RBC Distribution Width CV 13.3 % (11.6-14.6); RBC Distribution Width SD 43.3 fl (35.1-43.9); Red Blood Count 4.57 M/mm3 (4.2-5.4); White Blood Count 13.6 K/mm3 (4.4-11.0)
[2019-06-28 13:19] LABS: Squamous Epithelial Cells - UA 0-5 SEEN /hpf (5-10)
[2019-06-28 13:34] LABS: ALB/GLOB Ratio 0.9 RATIO (0.9-2.4); AST(SGOT) 9 U/L (15-37); Alanine Aminotransfer ALT/SGPT 21 U/L (13-56); Albumin, Serum 3.2 g/dL (3.2-5.0); Alkaline Phosphatase 82 U/L (45-117); Anion Gap 4 (5-15); BUN 8 mg/dL (7-18); BUN/Creat Ratio 10.7 RATIO (10-20); Calcium,Total 8.6 mg/dL (8.5-10.1); Chloride 112 mmol/L (98-107); Creatinine, Serum 0.75 mg/dL (0.55-1.02); EST Glomerular Filtration Rate 88 mL/min (>60); Est Glom Filt Rate - Afr Amer 107 mL/min (>60); Estimated Creatinine Clearance 80.94 ml/min; Globulin 3.5 g/dL (2.2-4.2); Glucose 103 mg/dL (74-106); Lipase 68 U/L (73-393); Potassium 3.9 mmol/L (3.5-5.1); Protein, Total 6.7 g/dL (6.4-8.2); Sodium Level 142 mmol/L (136-145)
[2019-06-28] MEDS: proMETHazine 25 MG/ML Syringe 6.25 MG IV (14:35)
[2019-06-28 15:00] VITALS: BP 110/74; PULSE 65; RESP 16; O2SAT 100
--- NOTE | 2019-06-28 15:18 | CT_ITS ---
STUDY: CT ABDOMEN AND PELVIS WITH CONTRAST REASON FOR EXAM: Female, 44 years old. RIGHT SIDED AB PAIN X 3 DAYS. PARTIAL HYSTERECTOMY IN PAST RADIATION DOSAGE (If Supplied By Facility): CTDIvol = ( 11.18 ) mGy, DLP = ( 1861.98 ) mGycm TECHNIQUE: Transaxial images were obtained from the dome of the diaphragm to the symphysis pubis without oral contrast. Oral and IV Gastrografin and 100mL Isovue-370 was administered. Sagittal and coronal images were reconstructed. Individualized dose optimization techniques were used for this CT. COMPARISON: Abdominal ultrasound June 28, [address] abdomen and pelvis June 26, 2019 FINDINGS: The visualized lung bases are unremarkable. 50 mm nodule right lower lobe is essentially unchanged. Normal liver. Normal gallbladder and extrahepatic biliary system. Normal spleen. Normal pancreas. Normal bilateral adrenal glands. Normal right kidney. Normal left kidney. Normal visualized stomach. Oral contrast was noted within the small bowel. Normal colon. The appendix is visualized and appears normal. Normal abdominal aorta. Normal inferior vena cava. Normal retroperitoneum. Normal urinary bladder. Normal abdominal wall. Normal osseous structures. CT/Abdomen/Pelvis WITH Contrast IMPRESSION: Normal enhanced CT of the abdomen and pelvis. Electronically Signed: Mesfin Ferraro MD at 17:39 EST , Service support ,
--- NOTE | 2019-06-28 17:42 | ED.DEP ---
ED Disposition - Plan for ED Patient: Instructions: ABDOMINAL PAIN, Unknown Cause, (Female) Referrals: Thuan Prieto [Primary Care Provider] -
== END 2019-06-28 17:47 | disposition home or self-care (01) ==
LOC: ED 12:54
PROVIDERS: Emergency Provider Emergency Medicine
DX: R10.11 Right upper quadrant pain (principal); R10.31 Right lower quadrant pain; R11.2 Nausea with vomiting, unspecified; R50.9 Fever, unspecified; J44.9 Chronic obstructive pulmonary disease, unspecified; Z72.0 Tobacco use; Z90.711 Acquired absence of uterus with remaining cervical stump
CPT/HCPCS: 74177; 76705; 80053; 81001; 83690; 85025; 96361; 96374; 96375; 96376; 99283; J7030; Q9967; A4216; J2405

== ENCOUNTER → 2019-07-08 09:24 | Outpatient (CLI) | payer MEDICARE, MEDICAID, SELFPAY ==
[2019-06-30 12:13] VITALS: BMI 45.9
--- NOTE | 2019-07-08 09:25 | NM_ITS ---
CLINICAL: 44-year-old female with reported history of right upper quadrant abdominal pain and nausea. RADIONUCLIDE HEPATOBILIARY SCINTIGRAPHY COMPARISON: Abdominal ultrasound report 06/28/2019 FINDINGS: Following the intravenous administration of 5.4 mCi of 99m Tc Mebrofenin, hepatobiliary images reveal: 1. Relatively prompt and homogeneous radiopharmaceutical concentration is noted by a normal sized liver. No parenchymal defects are identified. A Manish''s lobe is visualized. 2. Gallbladder activity is identified at 75 minutes post radiopharmaceutical administration. 3. Small intestinal tract is observed at 30 minutes following tracer injection. 4. Washout of the radiopharmaceutical by the hepatic parenchyma appears qualitatively normal. Cholecystokinin (0.02 ug/kg) was administered intravenously over a 30-minute period. The post CCK gallbladder ejection fraction calculated at 20 minutes following Cholecystokinin administration was noted to be < 5 % (normal greater than 35%). There is scintigraphic evidence of post cholecystokinin duodenal-gastric reflux. NM/Hepatobilliary Img w/Pharm Int IMPRESSION: 1. ABNORMAL 99m Tc Mebrofenin hepatobiliary imaging examination with Cholecystokinin. A. A gallbladder ejection fraction calculated to be less than 35% following the administration of Cholecystokinin is consistent with the presence of functional hepatobiliary disease (gallbladder and/or sphincter of Oddi dyskinesia) and/or organic hepatobiliary disease (chronic acalculous cholecystitis and/or cystic duct syndrome) in patients with intermediate to high pretest probabilities of hepatobiliary illness. (Kamilah Villarreal et al, Journal of Nuclear Medicine 32:1695, 1990). B. There is scintigraphic evidence of post CCK duodenal-gastric reflux. (Dennis et al, Nucl Med [employer] pg. 35, 1980). Electronically Signed: Yuri Gill DO at 23:43 EST Tel , Service support ,
== END ==
PROVIDERS: PCP Internal Medicine; Referring Provider Internal Medicine; Visit Provider Internal Medicine
DX: R10.11 Right upper quadrant pain (principal)
CPT/HCPCS: 78227; A9537; J2805

== ENCOUNTER → 2019-07-14 13:22 | Outpatient (CLI) | payer MEDICARE, MEDICAID, SELFPAY ==
[2019-07-14 11:27] VITALS: BMI 46.3
[2019-07-14 13:37] LABS: Absolute Lymphocyte Count 3.06 X10^3/uL (0.83-4.51); Absolute Neutrophil Count 8.9 X10^3/uL (2.0-7.7); Basophil# 0.04 X10^3/uL; Basophil% 0.3 % (0-1); Eosinophils% 0.8 % (0-5); Hematocrit 43.1 % (37-47); Hemoglobin 14.2 g/dL (12.0-15.0); Lymphocyte # 3.06 X10^3/ul (4.0); Mean Corp Hgb Conc 32.9 g/dL (32-36); Mean Corpuscular Hgb 29.6 pg (27.0-32.0); Mean Platelet Vol. 9.6 fl (6.2-12.0); Monocyte% 4.7 % (0-10); NRBC Flagged by Analyzer 0 % (0-5); Neutrophil # 8.91 X10^3/uL (2.7-7.7); Neutrophil % 69.8 % (47-70); Platelet Count 381 K/mm3 (150-450); RBC Distribution Width CV 13.2 % (11.6-14.6); RBC Distribution Width SD 43.4 fl (35.1-43.9); Red Blood Count 4.79 M/mm3 (4.2-5.4); White Blood Count 12.8 K/mm3 (4.4-11.0)
== END ==
PROVIDERS: PCP Internal Medicine; Referring Provider Surgery; Visit Provider Surgery
DX: D72.829 Elevated white blood cell count, unspecified (principal)
CPT/HCPCS: 36415; 85025

== ENCOUNTER → 2019-07-15 07:57 | Outpatient (CLI) | payer MEDICARE, MEDICAID, SELFPAY ==
[2019-06-30 12:13] VITALS: BMI 45.9
[2019-07-14 11:27] VITALS: BMI 46.3
--- NOTE | 2019-07-15 07:58 | CT_ITS ---
STUDY: CT CHEST WITH CONTRAST REASON FOR EXAM: Female, 44 years old. NODULE F/U RADIATION DOSAGE (If Supplied By Facility): CTDIvol = ( 15.58 ) mGy, DLP = ( 662.62 ) mGycm TECHNIQUE: Transaxial imaging was performed following intravenous administration of IV 100mL Isovue-300. Multiplanar coronal and sagittal images were reformatted. Individualized dose optimization techniques were used for this CT. COMPARISON: Comparison is made with prior CT of the abdomen dated June 28, [address] scanning of the chest dated December 19, 2013. FINDINGS: Small bilateral axillary nodes. The largest lymph node in the left axilla measures 1.9 cm. There is a 1.5 cm noncalcified nodule in the peripheral lateral aspect of the right lower lobe as seen on axial image #74. There appears to be fat within the central portion of the nodule. This was much smaller on prior examination dated December 19, 2013. Correlation with a PET scan is recommended. There is no demonstrated pleural abnormality. Normal heart and pericardium. Normal mediastinum. Normal hilar regions. Normal enhanced pulmonary arteries. Normal aorta arch and descending thoracic aorta. There are degenerative changes of the thoracic spine. There is no demonstrated abnormality of the visualized upper abdomen. CT/Chest WITH Contrast IMPRESSION: 1.5 cm nodular density in the peripheral lateral aspect of the right lower lobe as described. This has increased in size as compared to prior study dated December 19, 2013. Correlation with a PET scan is recommended for further evaluation. Electronically Signed: Michael Jacome, at 15:14 EST , Service support ,
== END ==
PROVIDERS: PCP Internal Medicine; Referring Provider Family Medicine; Visit Provider Family Medicine
DX: R91.1 Solitary pulmonary nodule (principal)
CPT/HCPCS: 71260; Q9967; A4216

== ENCOUNTER → 2019-07-21 08:10 | Outpatient (CLI) | payer MEDICARE, MEDICAID, SELFPAY ==
[2019-07-17 09:50] VITALS: BMI 45.9
[2019-07-21] VITALS (22 sets, daily range): BP systolic 74–130; BP diastolic 37–107; PULSE 64–87; RESP 12–28; TEMP 36.7; O2SAT 95–100; BMI 46.7
--- NOTE | 2019-07-21 | IMM_PTH ---
PATIENT: RAKESH HEARN LOC: CT U#:[id number] AGE/SX: 49/F ROOM: RE07/21/[address]: VANITA Alvarado : 1975 BED: DIS: SPEC #: [id number] RECD: 07/22/19 11:43 STATUS: ARIADNA REQ #: [id number] MITCHELL: 07/21/19 00:[address]: Montse Chawla NP DEPT: IMMUNOHISTOCHEMISTRY RECD BY: Ritika Olmos ENTERED: 07/22/19 11:44 SP TYPE: IMMUNO OTHR DR: Dr. Ezequiel Lepe MD Tissues: Right lung, NOS Procedures: KI-67 (add) MACRO (add) P53 (add) TTF1 (add) Vimentin (add) Pankeratin (initial) P40 (add) PHYSICIAN & INSTITUTION [place] [id number] SPECIMEN INFORMATION: Tissue Source: Right lung mass Clinical Info: Right lung mass Specimen Number: [id number] CPT code: 89680, 66137 x6 METHODOLOGY: Deparaffinized sections of prefer/formalin-fixed tissue or PAP/DQ stained slides are incubated with monoclonal/polyclonal antibodies/oligonucleotide probes. Localization is made via biotin free immunoperoxidase method. Appropriate controls are performed and reacted as expected. Results on target cell population are indicated in the following table: RESULTS: ANTIBODY / CLONE RESULT Macro (HAM-56) positive, focal AE1-3 (AE1/AE3/PCK26) negative Vimentin (V9) positive P53 (DO-7) negative Ki-67 (30-9) negative TTF-1 (8G7G3/1) negative P40 (BC28) negative These tests were developed and their performance characteristics determined by [facility]. They may not have been cleared or approved by the U.S. Food and Drug Administration. The FDA has determined that such clearance or approval is not necessary. The above immunohistochemical/dualISH markers are ordered and reviewed by the Pathologist. INTERPRETATION: Right lung, CT-guided biopsy: Benign fibrous tissue. AM:roxanne 07/23/19 Case has been reviewed in consultation with Dr. Pineda who concurs with the above diagnosis. IDC:[id number]
--- NOTE | 2019-07-21 | ASPIGT_PTH ---
PATIENT: RAKESH HEARN LOC: [place] U#:[id number] AGE/SX: 49/F ROOM: RE07/21/[address]: VANITA Alvarado : 1975 BED: DIS: SPEC #: [id number] RECD: 07/21/19 10:29 STATUS: ARIADNA KATHY #: [id number] MITCHELL: 07/21/19 00:[address]: Montse Chawla NP DEPT: SURGICAL PATHOLOGY RECD BY: Andrew Ochoa ENTERED: 07/21/19 10:29 SP TYPE: ASP RAD KO DR: Dr. Ezequiel Lepe MD Tissues: Lung, NOS Procedures: FNA Specimen Adequacy Special Stain Group II Surgery Specimen Level IV Imprint (control) HEADER OPERATION: CT-guided right lung biopsy PRE-OP DIAGNOSIS: Right lung mass TISSUE SUBMITTED: Right lung mass 1.5 cm MICROSCOPIC DIAGNOSIS Right lung mass, CT-guided needle core biopsy: Benign fibrosis. No evidence of malignancy. See comment. AM:roxanne 07/23/19 COMMENT The specimen is evaluated at the time of biopsy by Dr. Castaneda. Immediate Evaluation: Pass 1 - Macrophages and benign fibrous tissue (2 Diff-Quik stained touch imprints). Pass 2 - Macrophages, benign epithelial cells and fibrous tissue (2 Diff-Quik and 1 pap stained touch imprints). Immunohistochemistry ([id number]) supports the above diagnosis. Case has been reviewed in consultation with Dr. Pineda who concurs with the above diagnosis. IDC:[email or web address] MICROSCOPIC DESCRIPTION Slides are reviewed. GROSS DESCRIPTION Received is one container labeled with the patient's name and not further designated. The specimen consists of multiple irregular fragments of light buckner soft tissue that in aggregate measure 0.5 x 0.5 x <0.1 cm. The specimen is totally submitted in one cassette. / AM:roxanne 07/21/19 TC: CPT: 65922, 28975
--- NOTE | 2019-07-21 08:11 | CT_ITS ---
PROCEDURE: CT GUIDED CORE NEEDLE BIOPSY OF A right lower lobe LUNG LESION INDICATION: Female, 44 years old. RT LUNG MASS PHYSICIAN: Dr. Jacome CONSENT: Written informed consent was obtained having explained the risks, benefits and alternatives in detail with the patient who accepted the risks and agreed to proceed. Laboratory review and clinical assessment was performed. CONSCIOUS SEDATION PROTOCOL: The Drugs used were: 3 mg Versed, IV., and 75 mcg Fentanyl, IV. The sedation time was: 17 minutes. Conscious sedation was started at 9:20 AM and terminated at 9:47 AM. The conscious sedation protocol was independently monitored. RADIATION DOSAGE (If Supplied By Facility): CTDIvol = ( 17 ) mGy, DLP = ( 1549.77 ) mGycm Individualized dose optimization techniques were used for this CT. TECHNIQUE: The patient was placed in the supine position. A noncontrast CT was performed to localize the lesion in the peripheral aspect of the right lower lobe . The skin surface was prepped and draped in a sterile fashion. 1% lidocaine was used for local anesthesia. Using CT guidance, a 20-gauge coaxial biopsy device was advanced to the periphery of the lesion. A total of 3 core specimens were obtained. The specimens were placed in a formalin solution. A post procedure CT demonstrated no adverse sequelae or pneumothorax. The patient tolerated the procedure well without adverse event. A negative biopsy does not exclude malignancy. Further imaging or clinical followup based on patient condition and degree of clinical suspicion for malignancy. Suggest rebiopsy, if biopsy results do not match with clinical scenario. CT/Biopsy/Inj or Needle Placement IMPRESSION: 1. CT directed core needle biopsy of the peripherally located right lower lobe nodule using CT image guidance with image documentation as described. Pathology results are pending. 2. Conscious Sedation protocol utilized with independent monitoring. Electronically Signed: Michael Jacome, at 10:31 EDT , Service support ,
[2019-07-21 08:51] LABS: Platelet Count 310 K/mm3 (150-450)
[2019-07-21 08:55] LABS: Prothrombin Time (Protime)PT. 12.8 SECONDS (11.7-14.9)
[2019-07-21 08:56] LABS: Partial Thromboplast Time 27.1 Seconds (24.1-36.2)
--- NOTE | 2019-07-21 09:15 | RAD_ITS ---
STUDY: X-RAY CHEST REASON FOR EXAM: Female, 44 years old. Increase in pain, decrease in blood pressure TECHNIQUE: Single AP portable view of the chest. COMPARISON: Comparison is made with prior examination done earlier today. FINDINGS: The patient is status post right lung biopsy. There is no evidence of pneumothorax. Mild increased markings are seen at the right lung base at the biopsy site suggestive of a small amount of postbiopsy bleed. RAD/Chest 1 View IMPRESSION: No evidence of pneumothorax. Electronically Signed: Michael Jacome, at 11:27 EDT , Service support ,
[2019-07-21] MEDS: Midazolam 2 MG/2 ML Syringe IV ×2 (09:20→09:35)
[2019-07-21] MEDS: fentaNYL 100 MCG/2 ML Ampul IV ×3 (09:23→09:57)
--- NOTE | 2019-07-21 10:45 | NURSING ---
PT C/O PAIN 8/10, UNABLE TO TAKE A DEEP BREATH.
--- NOTE | 2019-07-21 10:50 | NURSING ---
PT C/O PAIN 8/10, ABLE TO TURN AND REPOSITION SELF. GIVEN ICE PACK AND PUT IN SUPINE POSITION.
--- NOTE | 2019-07-21 11:03 | NURSING ---
PT REPORTS PAIN 6/10. GIVEN MORE WARM BLANKETS.
--- NOTE | 2019-07-21 11:06 | NURSING ---
CARIDAD CHARLES DISCUSSED PT'S LOW B/P WITH DR. LITTLE. 2ND CHEST XRAY ORDERED. PT TOLERATED CHEST XRAY WELL, STILL C/O PAIN WITH DEEP BREATH.
--- NOTE | 2019-07-21 11:15 | RAD_ITS ---
STUDY: X-RAY CHEST REASON FOR EXAM: Female, 44 years old. IMMEDIATE POST LUNG BX - RT SIDE. R/O PNEUMOTHORAX. INSPR/EXPR VWS TECHNIQUE: Inspiratory and expiratory views COMPARISON: 06/09/2019 FINDINGS: Focal alveolar opacity in the lower right lung which may represent pulmonary hematoma after lung biopsy. No pneumothorax or hemothorax. Normal size heart. Normal mediastinum and jalyn. Normal visualized pulmonary arteries. Normal visualized aortic arch and descending thoracic aorta. Normal visualized thoracic spine. Normal visualized ribs, clavicles, and shoulders. There is no demonstrated abnormality of the visualized soft tissue structures of the upper abdomen. RAD/Chest Insp/Exp 2 View IMPRESSION: No pneumothorax after right lung biopsy. Electronically Signed: Yuri Germain MD at 11:42 EDT Tel , Service support ,
--- NOTE | 2019-07-21 12:00 | RAD_ITS ---
STUDY: X-RAY CHEST REASON FOR EXAM: Female, 44 years old. 2 HOUR POST BX - RT SIDE. INSPR/EXPR VWS TECHNIQUE: AP inspiration and expiration views. COMPARISON: Comparison is made with prior study done earlier today. FINDINGS: The patient is status post right lung biopsy. There is no evidence of pneumothorax. RAD/Chest Insp/Exp 2 View IMPRESSION: No evidence of pneumothorax on the delayed post right lung biopsy examination. Electronically Signed: Michael Jacome, at 14:51 EDT , Service support ,
--- NOTE | 2019-07-21 13:25 | NURSING ---
PT'S POSTERIOR LUNG SOUNDS: INSPIRATORY AND EXPIRATORY WHEEZES THROUGHOUT ALL LUNG [place].
== END ==
PROVIDERS: PCP Internal Medicine; Referring Provider Nurse Practitioner Acute Care; Visit Provider Nurse Practitioner Acute Care
DX: R91.8 Other nonspecific abnormal finding of lung field (principal); J84.10 Pulmonary fibrosis, unspecified
CPT/HCPCS: 32405; 77012; 36415; 71045; 71046; 85049; 85610; 85730; 88172; 88305; 88313; 99156; 99157; J7040; A4216

== ENCOUNTER 2019-07-21 16:03 | Emergency (ER) | payer MEDICARE, MEDICAID, SELFPAY ==
[2019-07-21 08:49] VITALS: BMI 46.7
[2019-07-21 16:04] VITALS: BP 129/78; PULSE 88; RESP 20; TEMP 36.8; O2SAT 98; BMI 46.7
--- NOTE | 2019-07-21 16:06 | EKG12_ITS ---
Test Reason : SOB Blood Pressure : / mmHG Vent. Rate : 078 BPM Atrial Rate : 078 BPM P-R Int : 132 ms QRS Dur : 084 ms QT Int : 396 ms P-R-T Axes : 039 051 043 degrees QTc Int : 451 ms Normal sinus rhythm Normal ECG Confirmed by SHANTA FRANCO, BIJAL ([id number]), scientific publications editor ROMEO SADLER ([id number]) on 07/24/2019 12:55:45 PM Referred By: SHAMAR Confirmed By:KURT WOMACK MD
--- NOTE | 2019-07-21 16:18 | RAD_ITS ---
STUDY: X-RAY CHEST REASON FOR EXAM: Female, 44 years old. Right lung Bx today, increased shortness of breath, blood tinged sputum TECHNIQUE: Single frontal view of the chest. COMPARISON: 07/21/2019. FINDINGS: Cardiac silhouette unremarkable. Pulmonary vascularity unremarkable. Aorta unremarkable. Hazy opacity overlying the right base. No pleural effusions. Upper abdomen unremarkable. Osseous structures intact. No pneumothorax. RAD/Chest 1 View (Portable) IMPRESSION: Hazy opacity at the right base may represent the sequelae of biopsy as clinically indicated. This may include hemorrhage, mass, or consolidation is clinically indicated. No pneumothorax is identified. Electronically Signed: Hector Gonzalez, at 17:09 EDT Tel , Service support ,
[2019-07-21 16:28] VITALS: O2SAT 96
[2019-07-21 16:30] VITALS: RESP 20; O2SAT 96
[2019-07-21 17:46] VITALS: BP 143/68; PULSE 83; RESP 16; O2SAT 97
[2019-07-21] MEDS: HYDROmorphone 1 MG/ML Syringe IV (17:50)
[2019-07-21 17:57] LABS: Absolute Lymphocyte Count 4.07 X10^3/uL (0.83-4.51); Absolute Neutrophil Count 9.3 X10^3/uL (2.0-7.7); Basophil# 0.03 X10^3/uL; Basophil% 0.2 % (0-1); Eosinophil# 0.19 X10^3/uL; Eosinophils% 1.3 % (0-5); Hematocrit 41.1 % (37-47); Hemoglobin 13.3 g/dL (12.0-15.0); Lymphocyte # 4.07 X10^3/ul (4.0); Mean Corp Hgb Conc 32.4 g/dL (32-36); Mean Corpuscular Hgb 29.6 pg (27.0-32.0); Mean Corpuscular Volume 91.3 fL (81-99); Monocyte# 0.83 X10^3/uL; Monocyte% 5.7 % (0-10); NRBC Flagged by Analyzer 0 % (0-5); Neutrophil # 9.32 X10^3/uL (2.7-7.7); Neutrophil % 64.3 % (47-70); POSITIVE MORPHOLOGY YES; Platelet Count 312 K/mm3 (150-450); RBC Distribution Width CV 13.6 % (11.6-14.6); RBC Distribution Width SD 45.9 fl (35.1-43.9); White Blood Count 14.5 K/mm3 (4.4-11.0)
[2019-07-21 17:59] LABS: Differential Indicated SCAN CRITERIA MET
--- NOTE | 2019-07-21 18:10 | ED.VISSUMM ---
- ER Visit Summary Date of Service: 07/21/19 Chief Complaint: [Shortness of breath and right-sided chest discomfort] History of Present Illness: The patient is a 44 F [presents with shortness of breath and chest discomfort since 9 AM this morning when she had a biopsy of a mass in her right lung. Patient complains of a sharp stabbing pain with breathing. She is also been coughing and at times coughing up some blood-tinged sputum. She denies any fevers. Patient called the radiology department and was referred back to the emergency department. Patient is not on any blood thinners. Patient has history of GERD, asthma, right lung mass, anxiety, depression.] Physical Examination: [HEENT-PERRLA, EOMI. Cranial nerves II through XII grossly intact. TMs clear. Mucous membranes moist. No adenopathy. Cardiovascular-regular rate and rhythm without murmur or ectopy Lungs-good aeration bilaterally. Some coarse rhonchi bilaterally. No accessory muscle use or retractions. The biopsy site looks normal without signs of infection. Abdomen-normoactive bowel sounds, soft, nontender, no rebound or rigidity, no peritoneal signs. Extremities-intact ?4, normal range of motion, normal pulses, atraumatic] Test Results: [Chest x-ray obtained showed no evidence of pneumothorax. Patient had some increased markings in the right lower lobe which are consistent with where her masses. When I compared with prior x-ray this morning I do not appreciate difference between the 2.] CBC with differential obtained showed a white count of 14.5, hemoglobin 13, hematocrit 41, platelets 312. Emergency Department Course and Treatment: [Patient was medicated with Dilaudid 1 mg IV.] Treatment Plan: [Patient will be given a prescription for a few [place] for severe pain.] Disposition: [Discharged home in stable condition] Impression: [Right chest pain status post lung biopsy] This note was generated with [employer] dictation software. It may contain incorrect words, spelling, and punctuation that were not noted in review of the chart prior to signing ED Disposition - Plan for ED Patient: Referrals: Ezequiel Lepe MD [Primary Care Provider] -
--- NOTE | 2019-07-21 18:14 | ED.DEP ---
ED Disposition - Plan for ED Patient: Instructions: Managing Post-Op Pain at Home: Medications Prescriptions: Hydrocodone Bitart/Apap 5-325 [[place] 5MG-325MG] 1 tablet PO Q4H PRN PRN 2 Days #10 tablet PRN Reason: Pain Transmission Status: Sent to [id number] Referrals: Ezequiel Lepe MD [Primary Care Provider] - Kj Lanier DO [STAFF PHYSICIAN] - 5-7 Days
[2019-07-21 18:21] VITALS: BP 102/80; PULSE 77; RESP 15; O2SAT 97
[2019-07-21 18:21] LABS: Anisocytosis RARE; Macrocytosis RARE; Platelet Estimate ADEQUATE (ADEQ); Red Cell Morphology N CHROM NORMAL (NORM C&C)
== END 2019-07-21 18:24 | disposition home or self-care (01) ==
LOC: ED 16:29
PROVIDERS: Emergency Provider Emergency Medicine; PCP Internal Medicine
DX: R07.89 Other chest pain (principal); J84.10 Pulmonary fibrosis, unspecified; R91.8 Other nonspecific abnormal finding of lung field; R06.02 Shortness of breath; J45.909 Unspecified asthma, uncomplicated; K21.9 Gastro-esophageal reflux disease without esophagitis; F32.9 Major depressive disorder, single episode, unspecified; F41.9 Anxiety disorder, unspecified; Z72.0 Tobacco use; Z79.899 Other long term (current) drug therapy; Z98.890 Other specified postprocedural states
CPT/HCPCS: 32405; 36415; 71045; 71046; 77012; 85025; 85049; 85610; 85730; 88172; 88305; 88313; 88341; 88342; 93005; 94760; 96372; 96374; 99156; 99157; 99284; J7040; A4216

== ENCOUNTER → 2019-07-29 15:32 | Outpatient (CLI) | payer MEDICARE, MEDICAID, SELFPAY ==
[2019-07-29 14:36] VITALS: BMI 46.3
[2019-07-29 17:15] LABS: ALB/GLOB Ratio 0.9 RATIO (0.9-2.4); AST(SGOT) 11 U/L (15-37); Alanine Aminotransfer ALT/SGPT 23 U/L (13-56); Albumin, Serum 3.6 g/dL (3.2-5.0); Alkaline Phosphatase 94 U/L (45-117); Anion Gap 6 (5-15); BUN 10 mg/dL (7-18); BUN/Creat Ratio 14.6 RATIO (10-20); Calcium,Total 8.7 mg/dL (8.5-10.1); Chloride 107 mmol/L (98-107); Creatinine, Serum 0.69 mg/dL (0.55-1.02); EST Glomerular Filtration Rate 98 mL/min (>60); Est Glom Filt Rate - Afr Amer 118 mL/min (>60); Globulin 4.2 g/dL (2.2-4.2); Glucose 92 mg/dL (74-106); Potassium 3.8 mmol/L (3.5-5.1); Protein, Total 7.8 g/dL (6.4-8.2); Sodium Level 137 mmol/L (136-145)
== END ==
PROVIDERS: PCP Internal Medicine; Referring Provider Internal Medicine; Visit Provider Internal Medicine
DX: R53.81 Other malaise (principal); R53.83 Other fatigue
CPT/HCPCS: 36415; 80053

== ENCOUNTER 2019-08-27 18:03 | Observation (INO) | payer MEDICARE, MEDICAID, SELFPAY ==
[2019-07-29 14:36] VITALS: BMI 46.3
[2019-08-27 18:04] VITALS: BP 150/79; PULSE 91; RESP 17; TEMP 36.7; O2SAT 97; BMI 47.9
[2019-08-27] MEDS: 0.9% Normal Saline 1,000 ML 125 ML IV (18:39)
[2019-08-27] MEDS: Ondansetron 4 MG/2 ML Vial IV ×3 (18:41→23:02)
[2019-08-27 18:42] LABS: Absolute Lymphocyte Count 4.84 X10^3/uL (0.83-4.51); Absolute Neutrophil Count 10.1 X10^3/uL (2.0-7.7); Basophil# 0.04 X10^3/uL; Basophil% 0.3 % (0-1); Eosinophil# 0.21 X10^3/uL; Eosinophils% 1.3 % (0-5); Hematocrit 45.5 % (37-47); Hemoglobin 14.8 g/dL (12.0-15.0); Lymphocyte # 4.84 X10^3/ul (4.0); Lymphocyte % 30.3 % (19-41); Mean Corp Hgb Conc 32.5 g/dL (32-36); Mean Corpuscular Hgb 29.6 pg (27.0-32.0); Mean Platelet Vol. 9.8 fl (6.2-12.0); Monocyte# 0.73 X10^3/uL; Monocyte% 4.6 % (0-10); NRBC Flagged by Analyzer 0 % (0-5); Neutrophil # 10.06 X10^3/uL (2.7-7.7); Neutrophil % 63.1 % (47-70); POSITIVE MORPHOLOGY YES; Platelet Count 322 K/mm3 (150-450); RBC Distribution Width CV 13.3 % (11.6-14.6); RBC Distribution Width SD 44.3 fl (35.1-43.9)
[2019-08-27] MEDS: HYDROmorphone 1 MG/ML Syringe IV ×2 (18:42→20:00)
[2019-08-27 18:43] VITALS: BP 121/71; PULSE 81; RESP 21; O2SAT 100
[2019-08-27 18:45] LABS: Differential Indicated SCAN CRITERIA MET
[2019-08-27 19:01] LABS: ALB/GLOB Ratio 0.9 RATIO (0.9-2.4); AST(SGOT) 14 U/L (15-37); Alanine Aminotransfer ALT/SGPT 23 U/L (13-56); Albumin, Serum 3.6 g/dL (3.2-5.0); Alkaline Phosphatase 101 U/L (45-117); Anion Gap 9 (5-15); BUN 16 mg/dL (7-18); BUN/Creat Ratio 18.2 RATIO (10-20); Calcium,Total 9.1 mg/dL (8.5-10.1); Chloride 104 mmol/L (98-107); Creatinine, Serum 0.88 mg/dL (0.55-1.02); EST Glomerular Filtration Rate 73 mL/min (>60); Est Glom Filt Rate - Afr Amer 89 mL/min (>60); Estimated Creatinine Clearance 68.98 ml/min; Globulin 4.2 g/dL (2.2-4.2); Glucose 92 mg/dL (74-106); Lipase 98 U/L (73-393); Protein, Total 7.8 g/dL (6.4-8.2); Sodium Level 138 mmol/L (136-145)
[2019-08-27 19:04] LABS: Anisocytosis RARE; Macrocytosis RARE; Platelet Estimate ADEQUATE (ADEQ); Red Cell Morphology N CHROM NORMAL (NORM C&C)
--- NOTE | 2019-08-27 19:58 | ED.VISSUMM ---
- ER Visit Summary Date of Service: 08/27/19 Chief Complaint: Abdominal pain] History of Present Illness: The patient is a 44 F [presents the emergency department complaint of abdominal pain that she states she has had for several months. Patient states that she has had a work-up including a CT scan as well as ultrasound and HIDA scan. Patient was scheduled to have her gallbladder removed because she had an abnormal HIDA scan however the coronavirus pandemic happened and her surgery was canceled. Patient's been having intermittent abdominal discomfort. About a half an hour prior to coming in she had finished eating some meat loaf and started having more severe pain. Patient states she vomited twice. She denies any fever. She denies urinary symptoms. Patient has history of asthma, biliary dyskinesia, anxiety, and depression. Patient's had prior hysterectomy.] Physical Examination: [HEENT-PERRLA, EOMI. Cranial nerves II through XII grossly intact. TMs clear. Mucous membranes moist. No adenopathy. Cardiovascular-regular rate and rhythm without murmur or ectopy Lungs-clear to auscultation, chest wall stable without crepitus or subcu emphysema Abdomen-normoactive bowel sounds, soft. Patient has tenderness palpation over right upper quadrant with some guarding. Patient has some epigastric tenderness on exam. There is no rebound, rigidity, or peritoneal signs. Extremities-intact ?4, normal range of motion, normal pulses, atraumatic] Test Results: [CBC with differential obtained showing a 16,000, hemoglobin 14.8, hematocrit 45, platelets 322. Chemistries unremarkable. LFTs were normal. Lipase was 98. Lactate was 2.0.] Emergency Department Course and Treatment: [On arrival patient was medicated with Dilaudid 1 mg IV as well as Zofran 4 mg IV. Patient continued complaint of pain and was given another milligram of Dilaudid. Case was discussed with general surgeon on-call Dr. Jean Honeycutt who will admit patient.] Treatment Plan: [Admit] Disposition: [Admit] Impression: [Intractable abdominal pain Biliary colic Biliary dyskinesia] This note was generated with [employer] dictation software. It may contain incorrect words, spelling, and punctuation that were not noted in review of the chart prior to signing ED Disposition - Plan for ED Patient: Referrals: Ezequiel Lepe MD [Primary Care Provider] -
[2019-08-27 20:03] VITALS: BP 122/87; PULSE 80; RESP 15; O2SAT 95
[2019-08-27 20:05] VITALS: BP 122/87; PULSE 81; RESP 19; TEMP 37; O2SAT 96
[2019-08-27 20:45] VITALS: BP 130/75; PULSE 79; RESP 16; TEMP 36.9; O2SAT 94
[2019-08-27 20:55] VITALS: BMI 47.5
[2019-08-27 21:02] VITALS: BMI 47.5
[2019-08-27] MEDS: 0.9% Normal Saline 1,000 ML 100 ML IV (21:31)
[2019-08-27] MEDS: traZODone 50 MG Tablet PO (21:35)
[2019-08-27 22:35] LABS: Reflex Lactate? Y
[2019-08-27] MEDS: Morphine 2 MG/ML Syringe IV (23:02)
[2019-08-27 23:45] LABS: Lactic Acid 0.8 mmol/L (0.4-1.9)
[2019-08-28] VITALS (12 sets, daily range): BP systolic 114–170; BP diastolic 53–98; PULSE 74–93; RESP 16–21; TEMP 36.4–36.9; O2SAT 92–98; BMI 47.5
--- NOTE | 2019-08-28 | GALL_PTH ---
PATIENT: RAKESH HEARN LOC: PCU U#:[id number] AGE/SX: 44/F ROOM: ITP072 RE08/27/[address]: Dr. Jean Honeycutt MD : 1975 BED: 1 DIS: 08/28/2019 SPEC #: [id number] RECD: 08/29/19 00:37 STATUS: ARIADNA CHAVEZ #: [id number] MITCHELL: 08/28/19 00:[address]: Jean Honeycutt DEPT: SURGICAL PATHOLOGY RECD BY: Andrew Ochoa ENTERED: 08/31/19 10:07 SP TYPE: [facility] [place] DR: Dr. Ezequiel Lepe MD Tissues: Gallbladder, NOS Procedures: Surgery Specimen Level III HEADER OPERATION: Laparoscopic cholecystectomy with IOC PRE-OP DIAGNOSIS: Biliary dyskinesia TISSUE SUBMITTED: Gallbladder MICROSCOPIC DIAGNOSIS Gallbladder, cholecystectomy: Chronic cholecystitis. No stones are identified in the container or in the gallbladder. SJ:roxanne 09/01/19 MICROSCOPIC DESCRIPTION Slides are reviewed. GROSS DESCRIPTION Received is one container labeled with the patient's name and designated gallbladder. The specimen consists of a gallbladder measuring 11 cm in length and up to 4 cm in diameter. The external surface is pink-buckner, smooth and glistening for the most part. Focally it is granular, hemorrhagic and contains cautery artifact. The gallbladder contains green-yellow mucoid bile. No stones are identified in the container or in the gallbladder. The mucosa is bile-stained and without any mass lesions. The gallbladder wall measures up to 0.1 cm in thickness. Package Line Operator sections from the gallbladder and the cystic duct are submitted in one cassette. / JEREMIE:roxanne 08/31/19 TC:3 CPT: 71996
--- NOTE | 2019-08-28 05:00 | EKG12_ITS ---
Test Reason : AM EKG Blood Pressure : / mmHG Vent. Rate : 080 BPM Atrial Rate : 080 BPM P-R Int : 138 ms QRS Dur : 092 ms QT Int : 390 ms P-R-T Axes : 048 059 054 degrees QTc Int : 449 ms Normal sinus rhythm Normal ECG Confirmed by ANGELA FRANCO, NELSON ([id number]), primer expeditor and drier JYOTSNA MANSFIELD ([id number]) on 09/02/2019 9:58:41 AM Referred By: TAMMIE Confirmed By:NELSON MILLER MD
[2019-08-28 05:45] LABS: Absolute Lymphocyte Count 4.05 X10^3/uL (0.83-4.51); Absolute Neutrophil Count 7.1 X10^3/uL (2.0-7.7); Basophil# 0.05 X10^3/uL; Basophil% 0.4 % (0-1); Eosinophils% 1.6 % (0-5); Hemoglobin 13.3 g/dL (12.0-15.0); Lymphocyte # 4.05 X10^3/ul (4.0); Lymphocyte % 33.2 % (19-41); Mean Corp Hgb Conc 32.4 g/dL (32-36); Mean Corpuscular Hgb 29.3 pg (27.0-32.0); Mean Corpuscular Volume 90.3 fL (81-99); Mean Platelet Vol. 9.7 fl (6.2-12.0); Monocyte# 0.76 X10^3/uL; Monocyte% 6.2 % (0-10); NRBC Flagged by Analyzer 0 % (0-5); Neutrophil % 58.4 % (47-70); Platelet Count 274 K/mm3 (150-450); RBC Distribution Width CV 13.4 % (11.6-14.6); RBC Distribution Width SD 43.9 fl (35.1-43.9); Red Blood Count 4.54 M/mm3 (4.2-5.4); White Blood Count 12.2 K/mm3 (4.4-11.0)
[2019-08-28] MEDS: 0.9% Normal Saline 1,000 ML 100 ML IV ×3 (05:47→14:59)
[2019-08-28] MEDS: Ondansetron 4 MG/2 ML Vial IV (05:48)
[2019-08-28] MEDS: Morphine 2 MG/ML Syringe IV (05:48)
[2019-08-28 06:02] LABS: ALB/GLOB Ratio 0.8 RATIO (0.9-2.4); AST(SGOT) 13 U/L (15-37); Alanine Aminotransfer ALT/SGPT 20 U/L (13-56); Albumin, Serum 2.9 g/dL (3.2-5.0); Alkaline Phosphatase 79 U/L (45-117); Anion Gap 7 (5-15); BUN 18 mg/dL (7-18); BUN/Creat Ratio 23.4 RATIO (10-20); Chloride 111 mmol/L (98-107); Creatinine, Serum 0.77 mg/dL (0.55-1.02); EST Glomerular Filtration Rate 86 mL/min (>60); Est Glom Filt Rate - Afr Amer 104 mL/min (>60); Estimated Creatinine Clearance 78.83 ml/min; Globulin 3.6 g/dL (2.2-4.2); Glucose 100 mg/dL (74-106); Potassium 3.9 mmol/L (3.5-5.1); Protein, Total 6.5 g/dL (6.4-8.2); Sodium Level 140 mmol/L (136-145)
--- NOTE | 2019-08-28 06:19 | RAD_ITS ---
STUDY: X-RAY CHEST REASON FOR EXAM: Female, 44 years old. WHEEZING FOR MONTHS -- HX OF ASTHMA AND COPD -- PATIENT TO HAVE SURGERY TODAY TECHNIQUE: PA and lateral views of the chest. COMPARISON: 07/21/2019 FINDINGS: The lungs are clear and expanded. There is no demonstrated pleural abnormality. Normal size heart. Normal mediastinum and jalyn. Normal visualized pulmonary arteries. Normal visualized aortic arch and descending thoracic aorta. Normal visualized thoracic spine. Normal visualized ribs, clavicles, and shoulders. There is no demonstrated abnormality of the visualized soft tissue structures of the upper abdomen. RAD/Chest PA and Lateral IMPRESSION: Normal x-ray examination of the chest. Electronically Signed: Yuri Germain MD at 8:23 EDT Tel , Service support ,
--- NOTE | 2019-08-28 06:23 | HP.PCM_ITS ---
Problem List (1) Biliary dyskinesia Status: Acute History of Present Illness Date of Admission: 08/27/19 The patient is a 44 year old F who was admitted through the emergency room with complaint of severe right upper quadrant pain after eating meatloaf. I had previously seen the patient in my office on July 14, 2019. She was complaining of multiple month history of epigastric right upper quadrant pain. The history and physical at that time is as noted below. It is felt that she likely had biliary dyskinesia based upon a abnormal hepatobiliary scan. The remainder of her studies were normal. She was scheduled for surgery but because of the COVID-19 pandemic that procedure was canceled. She presents to the ER claiming that she was in significant discomfort. According to Dr. Way's note she required 2 mg of Dilaudid for pain relief. She did have additional outpatient work-up per Dr. Kj Lanier pulmonology and had a chest CT which apparently did not demonstrate a lung CA. The patient states that she continues to smoke cigarettes. She has routine wheezing. Has only a rescue inhaler not a routine daily protocol. My history and imaging findings are as noted below Surgical H&P: Yes HPI: RAKESH HEARN, is a 44 F who presents to the office today for surgical consultation regarding a 3 to 4-week history of intermittent right upper quadrant and epigastric pain. She complains of awakening in the morning with nausea. Then she will have some diarrhea. She will then have some postprandial epigastric right upper quadrant pain. Over the past 3 days she says that she has had some fever and chilling. She has a yellow productive sputum. No dysur ia. She has had testing below with 2 separate emergency room visits. CT scan was not remarkable. Ultrasound not remarkable. HIDA scan suggested less than 5% ejection fraction. Liver function tests were normal. On June 28 her white blood cell count was 13.6 with a hemoglobin 13.5 hematocrit 41.4 platelet count 3 24,000. Liver function tests were normal. She states that at this moment in time she is not in discomfort. Hepatobiliary Scan Nuclear Medicine [facility] [address] [place] [address] Hepatobilliary Img w/Pharm Int MR#: [id number] Name: RAKESH HEARN MCKENZIE #:[id number] : [id number] From: Yuri Gill DO PCP:Ezequiel Lepe MD Status:REG CLI Study:Hepatobilliary Img w/Pharm Int Date of Exam:07/08/19 Exam#[id number] Ordering Dr: Ezequiel Lepe MD CLINICAL: 44-year-old female with reported history of right upper quadrant abdominal pain and nausea. RADIONUCLIDE HEPATOBILIARY SCINTIGRAPHY COMPARISON: Abdominal ultrasound report 06/28/2019 FINDINGS: Following the intravenous administration of 5.4 mCi of 99m Tc Mebrofenin, hepatobiliary images reveal: 1. Relatively prompt and homogeneous radiopharmaceutical concentration is noted by a normal sized liver. No parenchymal defects are identified. A Manish''s lobe is visualized. 2. Gallbladder activity is identified at 75 minutes post radiopharmaceutical administration. 3. Small intestinal tract is observed at 30 minutes following tracer injection. 4. Washout of the radiopharmaceutical by the hepatic parenchyma appears qualitatively normal. Cholecystokinin (0.02 ug/kg) was administered intravenously over a 30-minute period. The post CCK gallbladder ejection fraction calculated at 20 minutes following Cholecystokinin administration was noted to be < 5 % (normal greater than 35%). There is scintigraphic evidence of post cholecystokinin duodenal-gastric reflux. NM/Hepatobilliary Img w/Pharm Int IMPRESSION: 1. ABNORMAL 99m Tc Mebrofenin hepatobiliary imaging examination with Cholecystokinin. A. A gallbladder ejection fraction calculated to be less than 35% following the administration of Cholecystokinin is consistent with the presence of functional hepatobiliary disease (gallbladder and/or sphincter of Oddi dyskinesia) and/or organic hepatobiliary disease (chronic acalculous cholecystitis and/or cystic duct syndrome) in patients with intermediate to high pretest probabilities of hepatobiliary illness. (Kamilah Villarreal et al, Journal of Nuclear Medicine 32:1695, 1990). B. There is scintigraphic evidence of post CCK duodenal-gastric reflux. (Dennis floyd al, Nucl Med [employer] pg. 35, 1980). Electronically Signed: Yuri Gill DO at 23:43 EST Tel , Service support , [facility] [address] [place] [address] Abdomen/Pelvis WITH Contrast MR#: [id number] Name: RAKESH HEARN #:[id number] : [id number] From: Mesfin Ferraro MD PCP:Thuan Prieto Status:[facility] ER Study:Abdomen/Pelvis WITH Contrast Date of Exam:06/28/19 Exam#[id number] Ordering Dr: Chiki Scruggs MD STUDY: CT ABDOMEN AND PELVIS WITH CONTRAST REASON FOR EXAM: Female, 44 years old. RIGHT SIDED AB PAIN X 3 DAYS. PARTIAL HYSTERECTOMY IN PAST RADIATION DOSAGE (If Supplied By Facility): CTDIvol = ( 11.18 ) mGy, DLP = ( 1861.98 ) mGycm TECHNIQUE: Transaxial images were obtained from the dome of the diaphragm to the symphysis pubis without oral contrast. Oral and IV Gastrografin and 100mL Isovue-370 was administered. Sagittal and coronal images were reconstructed. Individualized dose optimization techniques were used for this CT. COMPARISON: Abdominal ultrasound June 28, [address] abdomen and pelvis June 26, 2019 FINDINGS: The visualized lung bases are unremarkable. 50 mm nodule right lower lobe is essentially unchanged. Normal liver. Normal gallbladder and extrahepatic biliary system. Normal spleen. Normal pancreas. Normal bilateral adrenal glands. Normal right kidney. Normal left kidney. Normal visualized stomach. Oral contrast was noted within the small bowel. Normal colon. The appendix is visualized and appears normal. Normal abdominal aorta. Normal inferior vena cava. Normal retroperitoneum. Normal urinary bladder. Normal abdominal wall. Normal osseous structures. CT/Abdomen/Pelvis WITH Contrast IMPRESSION: Normal enhanced CT of the abdomen and pelvis. Electronically Signed: Mesfin Ferraro MD at 17:39 EST , Service support , [facility] [address] [place] [address] Gallbladder MR#: [id number] Name: RAKESH HEARN #:[id number] : [id number] From: Mesfin Ferraro MD PCP:Thuan Prieto Status:REG ER Study:Gallbladder Date of Exam:06/28/19 Exam#[id number] Ordering Dr: Chiki Scruggs MD STUDY: ABDOMINAL ULTRASOUND - RIGHT UPPER QUADRANT REASON FOR VISIT: Female, 44 years old PAIN - PATIENT HAD SAUSAGE AND TOAST X 2 HOURS AGO TECHNIQUE: Ultrasound evaluation of the right upper quadrant was performed with real-time and static smith-scale imaging. TECHNICAL QUALITY: Adequate. COMPARISON: CT of abdomen and pelvis 06/26/2019 FINDINGS: Liver: The liver measures 18 cm. There is normal echogenicity of the liver. The bile ducts are within normal limits. There is hepatic color flow. The direction of portal flow is hepatopetal. There is no demonstrated mass lesion. Gallbladder: Normal distended gallbladder. The gallbladder wall measures 2 mm. There is a positive sonographic Bennett''s sign. There is no pericholecystic fluid. There are no gallstones. Common Bile Duct (C.B.D.): The common bile duct measures 2 mm. Pancreas: Not visualized due to bowel gas. Right Kidney: Normal size of the right kidney. The right kidney measures 12.2 cm. Normal renal cortex. The right cortex measures 2.3 cm. There is no demonstrated renal mass or cyst. There is no right hydronephrosis. US/Gallbladder IMPRESSION: Pancreas not visualized. Otherwise negative study. Electronically Signed: Mesfin Ferraro MD at 14:57 EST , Service support , Past Medical History Past Medical History (Chronic Problems): Chronic Problems (Last Reviewed 07/23/19 @ 10:37 by Domenica Alvarez) Chronic bronchitis (Chronic) Obesity (Chronic) Tobacco abuse (Chronic) Asthma (Chronic) Medical History: Medical History (Last Reviewed 07/23/19 @ 10:37 by Domenica Alvarez) Biliary dyskinesia (Acute) K82.8 Intestinal ulcer (Acute) K63.3 Anxiety and depression (Acute) F41.9, F32.9 Nasal polyp (Acute) J33.9 GERD (gastroesophageal reflux disease) (Acute) K21.9 History of pneumonia (Acute) Z87.01 H/O emotional problems (Acute) Z86.59 Chronic bronchitis (Chronic) J42 Arthritis (Acute) M19.90 Seasonal allergies (Acute) J30.2 Asthma J45.909 COPD (chronic obstructive pulmonary disease) J44.9 Allergies cefaclor [From Ceclor] Allergy (Verified 08/27/19 18:03) Hives erythromycin base [Erythromycin Base] Allergy (Verified 08/27/19 18:03) Upset Stomach moxifloxacin HCl [From Avelox] Allergy (Verified 08/27/19 18:03) Hives Penicillins Allergy (Verified 08/27/19 18:03) Upset Stomach Home Medications: Ambulatory Orders Medication Instructions Recorded Albuterol Inhaler [Ventolin Hfa] 2 puff INHALATION Q4H PRN PRN 09/02/13 Aripiprazole 2 mg PO DAILY 06/09/19 Vilazodone Hydrochloride [Viibryd] 20 mg PO QODAY 06/09/19 traZODone [Desyrel] 50 mg PO QHS 06/09/19 omeprazole 40 mg capsule,delayed 40 mg PO DAILY #30 cap 07/14/19 release Ibuprofen 600 mg PO DAILY 07/24/19 Surgical History: Surgical History (Last Reviewed 07/23/19 @ 10:37 by Domenica Alvarez) History of endoscopy (Resolved) Z98.890 History of tonsillectomy (Resolved) Z90.89 History of partial hysterectomy (Resolved) Z90.711 History of ankle surgery (Resolved) Z98.890 History of sinus surgery (Resolved) Z98.890 History of lymph node biopsy Z98.890 Surgical History: no surgical history, hysterectomy, - Psychiatric History: Anxiety, Depression 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 Smoking Status: Current every day smoker Tobacco Use: Cigarettes - *Family History Maternal Family History: Family History (Last Reviewed 07/23/19 @ 10:37 by Domenica Alvarez) Mother CVA (cerebral vascular accident) Father Diabetes Heart disease Myocardial infarction Other Anxiety Arthritis Melanoma Respiratory disease History Items: Heart Disease Review of Systems Constitutional: Denies: Chills, Fever Cardiovascular: Denies: Chest Pain Respiratory: Reports: Cough, Shortness of breath upon exertion - Chronic shortness of breath on exertion,, - - Nonproductive cough, chronic Gastrointestinal: Reports: Abdominal Pain, - - Right upper quadrant subcostal abdominal pain, patient states that persisting though less severe this morning Psychiatric: Reports: Anxiety Endocrine: Denies: Change in Body Habitus Hematologic/ Lymphatic: Denies: Adenopathy VTE Information - Inpt Only VTE Present on Admission: No - Physical Exam Vitals/I&O's: Vital Signs Temp Pulse Resp BP Pulse Ox 97.6 F L 78 16 124/72 H 95 08/28/19 03:06 08/28/19 03:06 08/28/19 03:06 08/28/19 03:06 08/28/19 03:06 Oxygen Delivery Method Room Air Weight: 276 lb 10.882 oz Body Mass Index (BMI) 47.5 Finger Stick Blood Glucose 96 Intake and Output for Last 24 Hours 08/26/19 08/27/19 08/28/19 23:59 23:59 23:59 Intake Total 356.50 / 556.50 1140.92 / 1140.92 Output Total 300 / 300 Balance 356.50 / 556.50 840.92 / 840.92 General: Alert, Oriented x3, Cooperative, No apparent distress Oral: Moist Mucosa Neck: Supple, Negative Carotid Bruits Lungs: Wheezes - Marked notable wheezing bilaterally Cardiovascular: Regular rate, Regular Rhythm Abdomen: Soft, Non Tender, Obese Extremities: No Calf Tenderness Neurological: - - Cognition intact Psych/Mental Status: Anxious Laboratory Results 08/27/19 18:24: WBC 16.0 H, RBC 5.00, Hgb 14.8, Hct 45.5, MCV 91.0, MCH 29.6, MCHC 32.5, RDW Std Deviation 44.3 H, RDW Coeff of Saeid 13.3, Plt Count 322, MPV 9.8, Immature Gran % (Auto) 0.400, Neut % (Auto) 63.1, Lymph % (Auto) 30.3, [place] % (Auto) 4.6, Eos % (Auto) 1.3, Baso % (Auto) 0.3, Absolute Neuts (auto) 10.1 H , Absolute Lymphs (auto) 4.84 H, Nucleated RBC % 0, Diff Path Review September, Platelet Estimate ADEQUATE, RBC Morphology N CHROM, Anisocytosis RARE, Macrocytosis RARE 08/27/19 18:24: Sodium 138, Potassium 4.0, Chloride 104, Carbon Dioxide 25.0, Anion Gap 9, BUN 16, Creatinine 0.88, Estim Creat Clear Calc 68.98, Est GFR (MDRD) Af Amer 89, Est GFR (MDRD) Non-Af 73, BUN/Creatinine Ratio 18.2, Glucose 92, Calcium 9.1, Total Bilirubin 0.20, AST 14 L, ALT 23, Alkaline Phosphatase 101, Total Protein 7.8, Albumin 3.6, Globulin 4.2, Albumin/Globulin Ratio 0.9, Lipase 98 08/27/19 18:24: Lactic Acid 2.0 08/27/19 23:04: Lactic Acid 0.8 08/28/19 05:34: WBC 12.2 H, RBC 4.54, Hgb 13.3, Hct 41.0, MCV 90.3, MCH 29.3, MCHC 32.4, RDW Std Deviation 43.9, RDW Coeff of Saeid 13.4, Plt Count 274, MPV 9.7, Immature Gran % (Auto) 0.200, Neut % (Auto) 58.4, Lymph % (Auto) 33.2, [place] % (Auto) 6.2, Eos % (Auto) 1.6, Baso % (Auto) 0.4, Absolute Neuts (auto) 7.1, Absolute Lymphs (auto) 4.05, Nucleated RBC % 0 08/28/19 05:34: Sodium 140, Potassium 3.9, Chloride 111 H, Carbon Dioxide 22.0, Anion Gap 7, BUN 18, Creatinine 0.77, Estim Creat Clear Calc 78.83, Est GFR (MDRD) Af Amer 104, Est GFR (MDRD) Non-Af 86, BUN/Creatinine Ratio 23.4 H, Glucose 100, Calcium 8.0 L, Total Bilirubin 0.40, AST 13 L, ALT 20, Alkaline Phosphatase 79, Total Protein 6.5, Albumin 2.9 L, Globulin 3.6, Albumin/Globulin Ratio 0.8 L Current Medications Acetaminophen (Tylenol) 650 mg PO Q4H PRN PRN PRN Reason: Pain 1-10 or Fever Albuterol Sulfate (Ventolin Aerosols) 2.5 mg INHALATION Q4H PRN PRN PRN Reason: SHORTNESS OF BREATH/ ASTHMA Albuterol Sulfate (Ventolin Aerosols) 2.5 mg INHALATION Q4H.RT SELENE Aripiprazole (Abilify) 2 mg PO DAILY [facility] Sodium Chloride () 1,000 mls @ 100 mls/hr IV .Q10H [facility] Last Admin: 08/28/19 05:47 Dose: 100 mls/hr Documented by: Piperacillin Sod/Tazobactam (Sod 3.375 gm/ Sodium Chloride) 50 mls @ 12.5 mls/hr IV Q8 [facility] Last Admin: 08/28/19 05:48 Dose: 12.5 mls/hr Documented by: Sodium Chloride () 250 mls @ 15 mls/hr IV .[id number] PRN PRN Reason: Saline Flush Last Infusion: 08/28/19 05:48 Dose: 0 mls/hr Documented by: Sodium Chloride () 250 mls @ 15 mls/hr IV .[id number] PRN PRN Reason: Additional IVPB Infusion Ibuprofen (Motrin) 600 mg PO DAILY [facility] Morphine Sulfate () 2 - 4 mg IV Q2H PRN PRN PRN Reason: Pain Score 4-10/10 Last Admin: 08/28/19 05:48 Dose: 2 mg Documented by: Ondansetron HCl (Zofran) 4 mg IV Q6H PRN PRN PRN Reason: NAUSEA Last Admin: 08/28/19 05:48 Dose: 4 mg Documented by: Pantoprazole Sodium (Protonix) 40 mg PO DAILY [facility] Sodium Chloride () 10 - 40 ml IV UD PRN PRN Reason: SALINE FLUSH Trazodone HCl (Desyrel) 50 mg PO QHS [facility] Last Admin: 08/27/19 21:35 Dose: 50 mg Documented by: Vilazodone HCl (Viibryd) 20 mg PO QODAY [facility] Assessment/Plan All Active Problems (Last Reviewed 07/23/19 @ 10:37 by Domenica Alvarez) Mass of right lung (Acute) Biliary dyskinesia (Acute) RUQ abdominal pain (Acute) History of endoscopy (Resolved) Intestinal ulcer (Acute) Anxiety and depression (Acute) Nasal polyp (Acute) History of tonsillectomy (Resolved) History of partial hysterectomy (Resolved) History of ankle surgery (Resolved) History of sinus surgery (Resolved) GERD (gastroesophageal reflux disease) (Acute) History of pneumonia (Acute) H/O emotional problems (Acute) Arthritis (Acute) Seasonal allergies (Acute) Because of the patient's repetitive persistent bouts of right upper quadrant pain with yet an additional emergency room visit I recommend to her a laparoscopic cholecystectomy and selective cholangiograms. She is aware of the technique, benefit, risk and alternatives. She is aware that her COPD and ongoing tobacco use and morbid obesity place her at increased risk. She has had an opportunity to ask and have questions answered. We will proceed as OR timing permits. Ranjit Dixon M.D., F.A.C.S. Essential Procedure Criteria Procedure Essential: Yes Criteria Note: On 07/28/2019 the [place] Department of Health ([facility]) Public Order signed by [facility] Director Janet Llanes M.D., regarding the Management of Non- Essential Surgeries and Procedures for the purpose of preserving Personal Protective Equipment (PPE) and critical hospital capacity and resources within [place] went into effect as of 07/29/2019 at 5:00PM. According to the [facility] Public Order: This action will remain in full force and effect until the State of Emergency declared by the Governor no longer exists or the Director of the [facility] rescinds or modifies this Order.. This [facility] order stated all non-essential or elective surgeries and procedures that utilize PPE should be delayed unless t here is undue risk to the current or future health of a patient. After reviewing the aforementioned [facility] Public Order and the patients clinical case, I have determined that the scheduled procedure meets the criteria to go forward. Risk to Patient if Procedure Delayed: Risk of rapidly worsening to severe symptoms
--- NOTE | 2019-08-28 06:35 | DCINST_ITS ---
Discharge Diet: Light diet - advance as tolerated - if you have questions about your diet instructions, please talk to you doctor. Discharge Activity: May Not Drive - for 1 week or while taking narcotic pain medicine. May shower in (days): 1 Lifting Restrictions: 10 pounds Call your doctor if your incision/area has: Continuous Slow Oozing, Sudden Increased Bleeding, Increased Pain/ Swelling, Increased Redness, Foul Smelling Discharge Call your doctor if you observe: Fever of 101 or Higher Suture Line Care: Avoid Pulling/Pushing, Avoid Pinching/Bending Additional Dressing/Incision Instructions:: Change or remove dressing in 4 days. Leave steri-strips in place for 1 week. Allergies/Adverse Reactions: Allergies cefaclor [From Ceclor] Allergy (Verified 08/27/19 18:03) Hives erythromycin base [Erythromycin Base] Allergy (Verified 08/27/19 18:03) Upset Stomach moxifloxacin HCl [From Avelox] Allergy (Verified 08/27/19 18:03) Hives Penicillins Allergy (Verified 08/27/19 18:03) Upset Stomach Medications to take at Discharge Albuterol Inhaler [Ventolin Hfa] 2 puff INHALATION Q4H PRN PRN 09/02/13 Aripiprazole 2 mg PO DAILY 06/09/19 Vilazodone Hydrochloride [Viibryd] 20 mg PO QODAY 06/09/19 traZODone [Desyrel] 50 mg PO QHS 06/09/19 omeprazole 40 mg capsule,delayed release 40 mg PO DAILY #30 cap 07/14/19 Ibuprofen 600 mg PO DAILY 07/24/19 Primary Care Physician: Ezequiel Lepe MD [Primary Care Provider] - Test Results: Test results from this visit will be discussed in further detail at your follow- up appointment, if applicable. Please Follow Up With: Ranjit Dixon MD - [phone] When: Call now to make virtual appointment in about 10 days.
[2019-08-28] MEDS: Albuterol 2.5 MG/3 ML VIAL.NEB. INHALATION ×2 (07:46→11:22)
[2019-08-28] MEDS: LORazepam 2 MG/ML Syringe 1 MG IV (07:54)
[2019-08-28] MEDS: 0.9% Saline Lock 10 ML Syringe IV (07:54)
[2019-08-28 11:16] LABS: Pathologist Review Reviewed
--- NOTE | 2019-08-28 12:20 | NURSING ---
pt left for surgery. purse, phone, and rings locked up in room. report called to nelson campos in [facility]
--- NOTE | 2019-08-28 12:58 | PCA ---
pt off floor
--- NOTE | 2019-08-28 13:05 | RAD_ITS ---
CLINICAL HISTORY: Female, 44 years old. Abdominal pain PROCEDURE: CHOLANGIOGRAM - intraoperative FLUOROSCOPY TIME (if supplied): (26 seconds) minutes/seconds TECHNIQUE: (All elements of maximal sterile barrier technique followed, including US elements as applicable) 26 seconds of fluoroscopy abdomen was utilized during Intraop Cholangiogram and multiple cine runs are submitted for interpretation. FINDINGS: A cannula is seen in the cystic duct remnant. Examination of the common bile duct demonstrates no evidence of filling defect to suggest common bile duct stone. There is spillage of contrast through the ampulla into the duodenum. RAD/Cholangiogram/ O R,Initial IMPRESSION: No common bile duct stone. Electronically Signed: Yuri Germain MD at 14:18 EDT Tel , Service support ,
[2019-08-28] MEDS: Bupivacaine Mpf 0.5% 30 ML VIAL (13:57)
--- NOTE | 2019-08-28 14:18 | OP.PCM_ITS ---
Problem List (1) Biliary dyskinesia Status: Acute Report of Operation Date of Procedure: 08/28/19 Pre-Operative Diagnosis: Intractable pain, biliary dyskinesia Post-Operative Diagnosis: Same Surgery/Procedure Performed:: Laparoscopic cholecystectomy with cholangiography Description of Surgical Findings:: Timeout and informed consent was obtained. 44-year-old female taken the operating placed by the table underwent general endotracheal intubation esthesia. The evening before she had been placed on therapeutic Zosyn. The abdomen was sterilely prepped and draped. 0.5% Marcaine was used as local anesthetic. Skin sites were pre-anesthetized. A supraumbilical vertical incision was created sharp dissection carried down through the subcutaneous tissue. This was selected because the patient's had a previous infraumbilical midline incision related to hysterectomy. Holding sutures of 0 Vicryl placed. Varies needle inserted. Saline drop test performed. The abdomen was insuffla gisela with CO2 to pressure of 10 mmHg pressure. Lachelle trocar inserted. 10 laparoscope inserted. No evidence of any trocar injuries. The abdomen was inspected there are no evidence of any superficial adhesions. The patient is noted to be morbidly obese. Significant amount of fibrofatty tissue. The greater omentum was heavy and overhanging. Liver appeared to be yellowish in color. 5 mm trochars were placed in the epigastric right upper quadrant right lateral upper quadrant areas. The gallbladder was distracted. It was noted to be rather tense. Did not appear to be edematous. Blunt dissection was instituted the infundibulum until clearly the cystic duct and cystic artery were identified. The cystic artery was clipped proximally distally prior to transecting it. A hemo-lock clip was placed on the cystic duct stump and then incision made in the cystic duct and through a 14-gauge Angiocath a cholangiogram catheter was inserted. Fluoroscopically control cholangiograms were obtained demonstrating normal ductal anatomy and free flow into the small bowel. The cholangiogram catheter was removed and 2 additional hemo-lock clips were placed on the cystic duct stump. Transecting it. The gallbladder was tediously dissected free from the liver bed. Hemostasis was achieved with electrocautery. No spillage was occurred. The gallbladder was completely released. Gallbladder was placed in a retrieval bag. The right upper quadrant was irrigated and aspirated free of excess fluid. A piece of fibrillar was placed in the liver bed. Hemostasis nicely intact. The abdomen was allowed to deflate of CO2 through the vital antiviral filter. Then the scope was removed. Trochars were removed. The specimen was removed through the umbilicus without requirement any further fascial enlargement. The fascia was closed with a [id number] suture of 0 Vicryl. Skin edges approximated opted for Monocryl subdermal stitches. Steri-Strips and Telfa and OpSite dressings were applied. Sponge and instrument and needle counts were reported to the surgeon to be correct. Blood loss minimal. Specimens gallbladder. Drains none. Blood loss minimal. The patient was taken to the recovery area in satisfactory addition without apparent complication Ranjit Dixon M.D., F.A.C.S. Type of Anesthesia:: General Anesthesiologist: Jennifer Noonan
--- NOTE | 2019-08-28 15:17 | PCA ---
pt off floor
--- NOTE | 2019-08-28 16:13 | NURSING ---
home medications given to pt
--- NOTE | 2019-08-28 16:53 | NURSING ---
pt called out and stated she wanted to go home. pt told nursing staff that every time she goes home after surgery she comes back to er for pain. pt stated her pain is a 10 right now. nursing staff told pt that she should not go home if pain is not controlled, and pt should not go back to er for pain if she goes home. pt upset stated that nursing can't tell her that she can't come back to er for pain. nursing explained that if she is having pain she should not go home and should stay night. pt stated she needs to go home now, she would find a ride home. offered pt iv pain medication but told pt that if she takes iv pain meds she would need to stay 2 hours. pt refused. offered po tylenol pt refused. told pt that she could take her discharge pain medication. pt refused stated she wanted to save her pain medication. pt stated she is going home now. discharge inst given. notified dr conde that pt upset demanded to go home. pt complaining of pain at a 10. refused to stay. offered w/c at discharge. pt refused stated she would walk out. pt crying. nursing removed iv.
== END 2019-08-28 16:03 | disposition home or self-care (01) ==
LOC: ED 18:31 → PCU 20:03
PROVIDERS: Surgery; Admitting Provider Surgery; Emergency Provider Emergency Medicine; PCP Internal Medicine; Visit Provider Surgery
PROC: (CPT 47610; principal; 2019-08-28 12:30)
DX: K81.1 Chronic cholecystitis (principal); F41.9 Anxiety disorder, unspecified; F32.9 Major depressive disorder, single episode, unspecified; E66.9 Obesity, unspecified; Z68.42 Body mass index [BMI] 45.0-49.9, adult; K21.9 Gastro-esophageal reflux disease without esophagitis; M19.90 Unspecified osteoarthritis, unspecified site; J44.9 Chronic obstructive pulmonary disease, unspecified; F17.210 Nicotine dependence, cigarettes, uncomplicated; Z79.899 Other long term (current) drug therapy
CPT/HCPCS: 47563; 36415; 71046; 74300; 76000; 80053; 83605; 83690; 85025; 88304; 93005; 94640; 96361; 96365; 96366; 96375; 96376; 99218; 99251; 99284; 99406; J7030; J7050; A4216; G0378; G0463; J2405

== ENCOUNTER 2019-08-29 18:37 | Emergency (ER) | payer MEDICARE, MEDICAID, SELFPAY ==
[2019-08-28 10:07] VITALS: BMI 47.5
[2019-08-29 18:38] VITALS: BP 161/78; PULSE 98; RESP 16; TEMP 37.3; O2SAT 96; BMI 47.3
[2019-08-29] MEDS: Ondansetron 4 MG/2 ML Vial IV ×2 (19:31→20:17)
[2019-08-29] MEDS: Morphine 4 MG/ML Syringe IV ×2 (19:32→20:18)
[2019-08-29 19:42] LABS: Bacteria 0 SEEN /hpf (None Seen); Mucous, Urine 0 SEEN /hpf (<or=2+); White Blood Cells 0 SEEN /hpf (0-5)
[2019-08-29 19:47] LABS: Absolute Neutrophil Count 12.1 X10^3/uL (2.0-7.7); Basophil# 0.03 X10^3/uL; Basophil% 0.2 % (0-1); Eosinophil# 0.08 X10^3/uL; Eosinophils% 0.4 % (0-5); Hematocrit 39.5 % (37-47); Hemoglobin 12.8 g/dL (12.0-15.0); Lymphocyte % 26.7 % (19-41); Mean Corp Hgb Conc 32.4 g/dL (32-36); Mean Corpuscular Hgb 29.6 pg (27.0-32.0); Mean Corpuscular Volume 91.2 fL (81-99); Mean Platelet Vol. 9.8 fl (6.2-12.0); Monocyte# 0.93 X10^3/uL; Monocyte% 5.2 % (0-10); NRBC Flagged by Analyzer 0 % (0-5); Neutrophil # 12.05 X10^3/uL (2.7-7.7); Neutrophil % 67.1 % (47-70); POSITIVE MORPHOLOGY YES; Platelet Count 304 K/mm3 (150-450); RBC Distribution Width CV 13.2 % (11.6-14.6); RBC Distribution Width SD 44.2 fl (35.1-43.9); Red Blood Count 4.33 M/mm3 (4.2-5.4)
[2019-08-29 19:49] LABS: Color, Urine Yellow (Yellow); Glucose, Dipstick Normal (Normal); Ketone-Dipstick Negative (Negative); Leukocyte Esterase-Dipstick Negative /ul (Negative); Nitrite-Dipstick Negative (Negative); Occult Blood-Urine 150 /ul (Negative); Protein-Dipstick Negative (Negative); Urine Bilirubin Dipstick Negative (Negative); Urine Clarity Clear (Clear); Urine Urobilinogen Normal (Normal)
[2019-08-29 19:51] LABS: Differential Indicated SCAN CRITERIA MET
[2019-08-29 19:55] LABS: Red Blood Cells-Urine 0-5 SEEN /hpf (0-5); Squamous Epithelial Cells - UA 0-5 SEEN /hpf (5-10)
[2019-08-29 20:00] VITALS: BP 128/79; PULSE 88; RESP 18; TEMP 36.9; O2SAT 98
[2019-08-29 20:00] LABS: AST(SGOT) 22 U/L (15-37); Alanine Aminotransfer ALT/SGPT 38 U/L (13-56); Albumin, Serum 3.3 g/dL (3.2-5.0); Alkaline Phosphatase 90 U/L (45-117); Anion Gap 8 (5-15); BUN 14 mg/dL (7-18); BUN/Creat Ratio 17.7 RATIO (10-20); Bilirubin, Direct 0.08 mg/dL (0.00-0.30); Calcium,Total 8.6 mg/dL (8.5-10.1); Chloride 108 mmol/L (98-107); Creatinine, Serum 0.79 mg/dL (0.55-1.02); EST Glomerular Filtration Rate 83 mL/min (>60); Est Glom Filt Rate - Afr Amer 101 mL/min (>60); Estimated Creatinine Clearance 76.84 ml/min; Globulin 3.6 g/dL (2.2-4.2); Glucose 107 mg/dL (74-106); Lipase 71 U/L (73-393); Potassium 3.8 mmol/L (3.5-5.1); Protein, Total 6.9 g/dL (6.4-8.2); Sodium Level 142 mmol/L (136-145)
--- NOTE | 2019-08-29 20:11 | CT_ITS ---
STUDY: CTA CHEST REASON FOR EXAM: Female, 44 years old. POST OP GB YESTERDAY, C/O FEVER TODAY, COUGH X WEEKS, THROAT PAIN AND ABD PAIN, HX PT HYSTERECTOMY, KS, POSSIBLE LUNG CA RADIATION DOSAGE (If Supplied By Facility): CTDIvol = ( 29.41 ) mGy, DLP = ( 2144.30 ) mGycm TECHNIQUE: The examination was performed with the intravenous administration of IV 100mL Isovue-370. Post-processing of the angiographic images was performed, with multiplanar reformation and 3D reconstruction. Individualized dose optimization techniques were used for this CT. COMPARISON: None. FINDINGS: Normal enhancement of the main pulmonary artery and right and left pulmonary arteries. Normal enhancement of the bilateral peripheral pulmonary arteries. There is no demonstrated pulmonary embolism. Normal thoracic aorta and visualized great vessels. There is no demonstrated aortic dissection. Normal heart and pericardium. Normal mediastinum. Normal hilar regions. Normal visualized trachea and bronchi. The lungs are well expanded. Stable 0.5 cm nodule in the right lower lobe. No pulmonary infiltrates or pleural effusions. Normal pleura. Normal chest wall structures. Normal osseous structures. CT/CTA Chest W/WO Contrast IMPRESSION: No evidence of pulmonary embolus or other acute thoracic disease. Stable 1.5 cm nodule in the right lower lobe. Electronically Signed: Jnuaid Acosta, at 21:53 EDT Tel , Service support ,
--- NOTE | 2019-08-29 20:11 | CT_ITS ---
STUDY: CT ABDOMEN AND PELVIS WITH CONTRAST REASON FOR EXAM: Female, 44 years old. Status post cholecystectomy. Pain. RADIATION DOSAGE (If Supplied By Facility): CTDIvol = ( 29.41 ) mGy, DLP = ( 2144.30 ) mGycm TECHNIQUE: Transaxial images were obtained from the dome of the diaphragm to the symphysis pubis without oral contrast. 100 ml of Isovue-370 contrast was administered. Sagittal and coronal images were reconstructed. Individualized dose optimization techniques were used for this CT. COMPARISON: 06/28/2019 FINDINGS: Please see the report for the CT of the chest which is dictated separately. The patient is status post cholecystectomy. There is a small amount of free fluid in the gallbladder fossa. There is no fluid collection. There is subcutaneous stranding noted in the anterior abdominal wall, consistent with the patient''s recent postoperative state. The liver is within normal limits. There are no suspicious hepatic lesions. The spleen is normal in size. The pancreas is within normal limits. The adrenal glands are within normal limits. There are no renal or ureteral stones. There is no hydronephrosis. There are no focal renal lesions. Normal visualized stomach. There is no bowel obstruction or inflammation. The appendix is visualized and appears normal. The aorta is normal in caliber. There is a small amount of pelvic free fluid. There is no free air, fluid collection or lymphadenopathy. There are no destructive osseous lesions. CT/Abdomen/Pelvis W IV Cont ONLY IMPRESSION: Status post cholecystectomy. Small amount of free fluid. The fluid collection. No bowel obstruction or inflammation. Normal appendix. Electronically Signed: Junaid Acosta, at 21:44 EDT Tel , Service support ,
[2019-08-29 20:24] LABS: Differential Comment SCANNED; Platelet Estimate ADEQUATE (ADEQ); Red Cell Morphology NORM C+C NORMAL (NORM C&C)
[2019-08-29 20:31] LABS: Atypical Lymphocyte RARE %; Reactive Lymphocyte RARE
[2019-08-29 21:00] VITALS: BP 121/71; PULSE 81; RESP 16; TEMP 36.9; O2SAT 97
--- NOTE | 2019-08-29 21:42 | ED.DCSUM_ITS ---
History of Present Illness Chief Complaint: General Illness Past Medical History - Allergies and Home Meds Allergies/Adverse Reactions: Allergies cefaclor [From Ceclor] Allergy (Verified 08/27/19 18:03) Hives erythromycin base [Erythromycin Base] Allergy (Verified 08/27/19 18:03) Upset Stomach moxifloxacin HCl [From Avelox] Allergy (Verified 08/27/19 18:03) Hives Penicillins Allergy (Verified 08/27/19 18:03) Upset Stomach Primary Care Physician: Ezequiel Lepe MD [Primary Care Provider] - Surgical History: no surgical history, hysterectomy, - Smoking Status: Current every day smoker - Family History Maternal Family History: Family History (Last Reviewed 07/23/19 @ 10:37 by Domenica Alvarez) Mother CVA (cerebral vascular accident) Father Diabetes Heart disease Myocardial infarction Other Anxiety Arthritis Melanoma Respiratory disease Family History: Reports: Heart Disease Physical Exam Vital Signs/Narrative: Vital Signs Temp Pulse Resp BP Pulse Ox 08/29/19 20:00 98.5 F 88 18 128/79 H 98 08/29/19 18:38 99.1 F 98 16 161/78 H 96 Diagnostic/Tx/Re-eval - Medical Decision Making She has a white blood cell count of 18,000. Electrolytes unremarkable. She is not in distress but does have a fair amount of abdominal pain and shortness of breath. I discussed the case with the [facility] and with her history of asthma and her fever at home, they did recommend COVID-19 testing. ID number [id number], approved by PALAK Padilla. I ordered this test. Given her c ontinued shortness of breath and mostly right upper quadrant abdominal pain, although presumably preoperative, I did order imaging and included a CT angio of the chest to also evaluate for underlying groundglass infiltrates. Care will be turned over to the night physician to check results and discuss with surgery. The CT abdomen and chest are both negative. There was altered during my shift so I did not sign over care. The case was discussed with the surgeon on-call, Dr. Rollins regarding the leukocytosis. The patient is actually feeling much better now looks well. We both feel she can safely follow-up closely as an outpatient. She will self quarantine pending her results. ED Disposition - Plan for ED Patient: Disposition: Home or Assisted Living Diagnosis: Postoperative upper abdominal pain, Suspected COVID-19 virus infection Instructions: ED Abdominal Pain Unkn Cause Fem Referrals: Ezequiel Lepe MD [Primary Care Provider] -
[2019-08-29 22:16] VITALS: BP 138/78; PULSE 76; RESP 18; O2SAT 97
--- NOTE | 2019-09-01 11:21 | ED.RN ---
called pt and told her covid test was negative.
== END 2019-08-29 22:16 | disposition home or self-care (01) ==
PROVIDERS: Emergency Provider Emergency Medicine; PCP Internal Medicine
DX: R10.10 Upper abdominal pain, unspecified (principal); G89.18 Other acute postprocedural pain; Z03.818 Encounter for observation for suspected exposure to other biological agents ruled out; J45.909 Unspecified asthma, uncomplicated; F17.200 Nicotine dependence, unspecified, uncomplicated; Z79.899 Other long term (current) drug therapy; Z88.1 Allergy status to other antibiotic agents; Z88.0 Allergy status to penicillin; Z90.49 Acquired absence of other specified parts of digestive tract
CPT/HCPCS: 71275; 74177; 80048; 80076; 81001; 83690; 85025; 87635; 96374; 96375; 96376; 99285; Q9967; J2405; U0004

== ENCOUNTER → 2019-09-02 10:19 | Outpatient (CLI) | payer MEDICARE, MEDICAID, SELFPAY ==
[2019-09-02 09:51] VITALS: BMI 47.3
--- NOTE | 2019-09-02 10:23 | EKG12_ITS ---
Test Reason : POST OP Blood Pressure : / mmHG Vent. Rate : 077 BPM Atrial Rate : 077 BPM P-R Int : 122 ms QRS Dur : 084 ms QT Int : 392 ms P-R-T Axes : 051 051 043 degrees QTc Int : 443 ms Normal sinus rhythm Normal ECG Confirmed by FREDDY KEANE ([id number]), photograph editor JYOTSNA MANSFIELD ([id number]) on 09/11/2019 10:32:22 AM Referred By: Ezequiel Lepe Confirmed By:FREDDY KEANE
== END ==
PROVIDERS: PCP Internal Medicine; Referring Provider Internal Medicine; Visit Provider Internal Medicine
DX: R07.9 Chest pain, unspecified (principal)
CPT/HCPCS: 36415; 84484; 93005

== ENCOUNTER → 2019-09-15 16:17 | Outpatient (CLI) | payer MEDICARE, MEDICAID, SELFPAY ==
[2019-09-15 15:50] VITALS: BMI 44.6
[2019-09-15 16:23] LABS: Bacteria 0 SEEN /hpf (None Seen); Mucous, Urine 0 SEEN /hpf (<or=2+); Red Blood Cells-Urine 0 SEEN /hpf (0-5); White Blood Cells 0 SEEN /hpf (0-5)
[2019-09-15 16:53] LABS: Color, Urine Yellow (Yellow); Glucose, Dipstick Normal (Normal); Ketone-Dipstick Negative (Negative); Leukocyte Esterase-Dipstick Negative /ul (Negative); Nitrite-Dipstick Negative (Negative); Occult Blood-Urine 150 /ul (Negative); Protein-Dipstick Negative (Negative); Urine Bilirubin Dipstick Negative (Negative); Urine Clarity Clear (Clear); Urine Urobilinogen Normal (Normal)
[2019-09-15 17:16] LABS: Squamous Epithelial Cells - UA 0-5 SEEN /hpf (5-10)
== END ==
PROVIDERS: PCP Internal Medicine; Visit Provider Nurse Practitioner Family
DX: R30.0 Dysuria (principal)
CPT/HCPCS: 81001; 87086; 87088

== ENCOUNTER → 2019-09-22 11:59 | Outpatient (CLI) | payer MEDICARE, MEDICAID, SELFPAY ==
[2019-09-15 15:50] VITALS: BMI 44.6
[2019-09-22 12:06] LABS: Bacteria 0 SEEN /hpf (None Seen); Mucous, Urine 0 SEEN /hpf (<or=2+); Red Blood Cells-Urine 0 SEEN /hpf (0-5); White Blood Cells 0 SEEN /hpf (0-5)
[2019-09-22 12:49] LABS: Color, Urine Yellow (Yellow); Glucose, Dipstick Normal (Normal); Ketone-Dipstick Negative (Negative); Leukocyte Esterase-Dipstick Negative /ul (Negative); Nitrite-Dipstick Negative (Negative); Occult Blood-Urine 50 /ul (Negative); Protein-Dipstick Negative (Negative); Urine Bilirubin Dipstick Negative (Negative); Urine Clarity Clear (Clear); Urine Urobilinogen Normal (Normal)
[2019-09-22 12:57] LABS: Squamous Epithelial Cells - UA 0-5 SEEN /hpf (5-10)
== END ==
PROVIDERS: PCP Internal Medicine; Referring Provider Nurse Practitioner Family; Visit Provider Nurse Practitioner Family
DX: R31.9 Hematuria, unspecified (principal)
CPT/HCPCS: 81001

== ENCOUNTER 2019-10-06 07:00 | Day surgery (SDC) | payer MEDICARE, MEDICAID, SELFPAY ==
[2019-09-28 14:56] VITALS: BMI 46.4
--- NOTE | 2019-10-06 | FLU_PTH ---
PATIENT: RAKESH HEARN [place] [facility] [place][id number] AGE/SX: 44/F ROOM: RE10/06/[address]: Dr. Luisa Mendez MD : 1975 BED: DIS: 10/06/2019 SPEC #: [id number] RECD: 10/06/19 11:50 STATUS: ARIADNA KATHY #: [id number] MITCHELL: 10/06/19 00:[address]: Luisa Mendez DEPT: CYTOLOGY RECD BY: Andrew Ochoa ENTERED: 10/06/19 11:52 SP TYPE: Fluid OTHR DR: Dr. Ezequiel Lepe MD Tissues: Urinary tract, NOS Procedures: Special Stain Group II Surgery Specimen Level IV Cytospin Fluid HEADER OPERATION: Cysto, retrograde pyelogram, insertion of bilateral ureteral PRE-OP DIAGNOSIS: Flank pain, gross hematuria, kidney calculi TISSUE SUBMITTED: Bladder fluid for cytology DIAGNOSIS CYTOLOGY Urinary bladder fluid for cytology (cytospin and cell block): Atypical urothelial cells present. See comment. AM:roxanne 10/08/19 COMMENT Immunohistochemistry ([id number]) supports the above diagnosis. Case has been reviewed in consultation with Dr. Pineda who concurs with the above diagnosis. IDC:SJ CYTOLOGY STUDY Slides are reviewed. CYTOLOGY GROSS Received is 90 ml of clear colorless fluid labeled with the patient's name and and designated per the requisition as bladder. Submitted for cytology preparation including cell block. / roxanne 10/06/19 TC:0 CPT: 86377, 03812
--- NOTE | 2019-10-06 | IMM_PTH ---
PATIENT: RAKESH HEARN LOC: [facility] [place][id number] AGE/SX: 44/F ROOM: RE10/06/[address]: Dr. Luisa Mendez MD : 1975 BED: DIS: 10/06/2019 SPEC #: [id number] RECD: 10/08/19 11:39 STATUS: ARIADNA REQ #: [id number] MITCHELL: 10/06/19 00:[address]: Luisa Mendez DEPT: IMMUNOHISTOCHEMISTRY RECD BY: Ritika Olmos ENTERED: 10/08/19 11:40 SP TYPE: IMMUNO OTHR DR: Dr. Ezequiel Lepe MD Tissues: Urinary bladder, NOS Procedures: CK20 (add) CK5-6 (add) CK7 (add) CK8 (add) MOODY-2 (add) KI-67 (add) P53 (add) Pankeratin (initial) CD44 (add) PHYSICIAN & [address] [address] SPECIMEN INFORMATION: Tissue Source: Bladder fluid Clinical Info: Flank pain, gross hematuria Specimen Number: [id number] CPT code: 09126, 63593 x8 METHODOLOGY: Deparaffinized sections of prefer/formalin-fixed tissue or PAP/DQ stained slides are incubated with monoclonal/polyclonal antibodies/oligonucleotide probes. Localization is made via biotin free immunoperoxidase method. Appropriate controls are performed and reacted as expected. Results on target cell population are indicated in the following table: RESULTS: ANTIBODY / CLONE RESULT AE1-3 (AE1/AE3/PCK26) positive CK7 (OV-TL12/30) positive CK8 (84dgjnG09) positive CK20 (KS20.8) positive, focal MOODY-2 (SP21) positive anti-CD44 (SP37) positive, rare CK5-6 (D5 & 1684) positive, focal P53 (DO-7) negative Ki-67 (30-9) negative These tests were developed and their performance characteristics determined by [facility]. They may not have been cleared or approved by the U.S. Food and Drug Administration. The FDA has determined that such clearance or approval is not necessary. The above immunohistochemical/dualISH markers are ordered and reviewed by the Pathologist. INTERPRETATION: Urinary bladder: Atypical urothelial cells present. AM:roxanne 10/09/19 Case has been reviewed in consultation with Dr. Pineda who concurs with the above diagnosis. IDC:[id number]
[2019-10-06 07:27] VITALS: BP 123/67; PULSE 77; RESP 16; TEMP 36.6; O2SAT 98; BMI 47.3
[2019-10-06] MEDS: Lactated Ringers 1,000 ML 100 ML IV (07:43)
[2019-10-06] MEDS: Ciprofloxacin 400 MG/200 ML BAG 200 MG IV (07:44)
--- NOTE | 2019-10-06 08:13 | HP.PCM_ITS ---
Problem List (1) Flank pain Status: Acute (2) Gross hematuria Status: Acute (3) Kidney calculi Status: Acute History of Present Illness Date of Admission: 10/06/19 Chief Complaint: flank pain with hematuria The patient is a 44 year old F who has been having gross hematuria and flank pain on the right side greater than the left. She has a history of kidney stones and has passed approximately 5 or 6 in her lifetime. Her most recent CT scan showed bilateral renal calculi, small with no obstruction. Her symptoms continue, and we discussed intervention and evaluation with cystoscopy, retrograde pyelograms and possible ureteroscopy. Risks benefits and alternatives were discussed including that of COVID-19. She understands and desires to proceed. Past Medical History Past Medical History (Chronic Problems): Chronic Problems (Last Reviewed 09/28/19 @ 14:56 by Donna Jonas) Asthma (Chronic) Tobacco abuse (Chronic) Obesity (Chronic) Chronic neutrophilia (Chronic) Chronic bronchitis (Chronic) Medical History: Medical History (Last Reviewed 10/06/19 @ 08:[address] Luisa Mendez MD) Biliary dyskinesia (Acute) K82.8 Intestinal ulcer (Acute) K63.3 Anxiety and depression (Acute) F41.9, F32.9 Nasal polyp (Acute) J33.9 GERD (gastroesophageal reflux disease) (Acute) K21.9 History of pneumonia (Acute) Z87.01 H/O emotional problems (Acute) Z86.59 Chronic bronchitis (Chronic) J42 Arthritis (Acute) M19.90 Seasonal allergies (Acute) J30.2 Asthma J45.909 History of mononucleosis Z86.19 COPD (chronic obstructive pulmonary disease) J44.9 Allergies cefaclor [From Ceclor] Allergy (Verified 10/06/19 07:25) Hives erythromycin base [Erythromycin Base] Allergy (Verified 10/06/19 07:25) Upset Stomach moxifloxacin HCl [From Avelox] Allergy (Verified 10/06/19 07:25) Hives Penicillins Allergy (Verified 10/06/19 07:25) Upset Stomach Home Medications: Ambulatory Orders Medication Instructions Recorded Albuterol Inhaler [Ventolin Hfa] 2 puff INHALATION Q4H PRN PRN 09/02/13 Aripiprazole 2 mg PO DAILY 06/09/19 Vilazodone Hydrochloride [Viibryd] 20 mg PO DAILY 06/09/19 traZODone [Desyrel] 50 mg PO QHS 06/09/19 Ibuprofen 600 mg PO DAILY 07/24/19 omeprazole 40 mg capsule,delayed 40 mg PO DAILY #30 cap 09/03/19 release promethazine 12.5 mg tablet 12.5 mg PO TID PRN #30 tab 09/04/19 Surgical History: Surgical History (Last Reviewed 10/06/19 @ 08:[address] 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 Luisa Mendez MD) Mother CVA (cerebral vascular accident) Father Diabetes Heart disease Myocardial infarction Other Anxiety Arthritis Melanoma Respiratory disease History Items: Heart Disease Review of Systems Constitutional: Denies: Anorexia, Fever Eyes: Denies: Vision Change HEENT: Denies: Visual Changes Cardiovascular: Denies: Chest Pain, Chest Pressure Respiratory: Denies: Cough, Shortness of Breath Gastrointestinal: Reports: Abdominal Pain, Nausea, - - flank pain right greater than left. Denies: Vomiting Genitourinary: Reports: Frequency, Hematuria, Incontinence, Urgency Gynecological: Denies: Vaginal discharge Musculoskeletal: Denies: Muscle pain Skin: Denies: Wounds Neurological: Denies: Difficulty swallowing Endocrine: Denies: Change in Body Habitus VTE Information - Inpt Only VTE Present on Admission: Yes VTE Mechan Device Prophylaxis: SCD's VTE Pharm Prophylaxis ordered?: No Reason prophylaxis not ordered:: Treatment Not Indicated Patient Problems: Active and Suspected Problems (Last Reviewed 09/28/19 @ 14:56 by Donna Jonas) Flank pain (Acute) Gross hematuria (Acute) Kidney calculi (Acute) - Physical Exam Vitals/I&O's: Vital Signs Temp Pulse Resp BP Pulse Ox 98 F 77 16 123/67 H 98 10/06/19 07:27 10/06/19 07:27 10/06/19 07:27 10/06/19 07:27 10/06/19 07:27 Oxygen Delivery Method Room Air Weight: 129 kg Body Mass Index (BMI) 47.3 Finger Stick Blood Glucose 96 General: Alert, Oriented x3, Cooperative, No apparent distress HEENT: Atraumatic, Normocephalic Oral: Moist Mucosa Neck: Supple, Trachea Midline Lungs: Normal air movement Cardiovascular: Regular rate, Regular Rhythm Abdomen: Soft, Non Tender, Non-Distended Extremities: No Calf Tenderness Skin: No rashes Musculoskeletal: No Muscle Wasting Neurological: Cranial nerves II-XII grossly intact, Neuro grossly intact Psych/Mental Status: Normal Affect, Alert and oriented to time, place, person, mood and affect Current Medications Lactated Ringer's () 1,000 mls @ 100 mls/hr IV .Q10H SELENE Last Admin: 10/06/19 07:43 Dose: 100 mls/hr Documented by: Assessment/Plan All Active Problems (Last Reviewed 09/28/19 @ 14:56 by Donna Jonas) RUQ abdominal pain (Acute) Mass of right lung (Acute) Flank pain (Acute) Gross hematuria (Acute) Kidney calculi (Acute) Biliary dyskinesia (Acute) History of endoscopy (Resolved) Intestinal ulcer (Acute) Anxiety and depression (Acute) Nasal polyp (Acute) History of tonsillectomy (Resolved) History of partial hysterectomy (Resolved) History of ankle surgery (Resolved) History of sinus surgery (Resolved) GERD (gastroesophageal reflux disease) (Acute) History of pneumonia (Acute) H/O emotional problems (Acute) Arthritis (Acute) Seasonal allergies (Acute) Evaluation with cystoscopy, bilateral retrograde pyelograms, possible ur eteroscopy Essential Procedure Criteria Procedure Essential: Yes Criteria Note: On 07/28/2019 the [place] Department of Health ([facility]) Public Order signed by [facility] Director Janet Llanes M.D., regarding the Management of Non- Essential Surgeries and Procedures for the purpose of preserving Personal Protective Equipment (PPE) and critical hospital capacity and resources within [place] went into effect as of 07/29/2019 at 5:00PM. According to the [facility] Public Order: This action will remain in full force and effect until the State of Emergency declared by the Governor no longer exists or the Director of the [facility] rescinds or modifies this Order.. This [facility] order stated all non-essential or elective surgeries and procedures that utilize PPE should be delayed unless there is undue risk to the current or future health of a patient. After reviewing the aforementioned [facility] Public Order and the patients clinical case, I have determined that the scheduled procedure meets the criteria to go forward. Risk to Patient if Procedure Delayed: Presence of severe symptoms causing an inability to perform ADL's - Increasing pain in the right flank and gross hematuria
--- NOTE | 2019-10-06 08:27 | OP.PCM_ITS ---
Problem List (1) Flank pain Status: Acute (2) Gross hematuria Status: Acute (3) Kidney calculi Status: Acute Report of Operation Date of Procedure: 10/06/19 Pre-Operative Diagnosis: flank pain, gross hematuria, kidney calculi Post-Operative Diagnosis: same Surgery/Procedure Performed:: cystoscopy, bilateral retrograde pyelograms, bilateral ureteral stent insertion Type of Anesthesia:: General Specimen's removed: urine for cytology from bladder Description of Procedure: The patient is a 44-year-old female who is a heavy smoker, presented to the office with gross hematuria bilateral flank pain. Was found to have punctate renal calculi on CT scan and now presents for further evaluation. Risks benefits and alternatives were discussed including that of COVID-19. The patient understood and desired to proceed. Patient was taken the operating room and placed on the operating room table. Anesthesia monitored the head, neck, airway, IV access and vital signs throughout the case. Once anesthesia was appropriately ministered the patient was placed into dorsal lithotomy position was prepped and draped in usual sterile fashion. A cystourethroscopy through the urethra was then performed and the bladder mucosa was visualized in its entirety. There were no areas of ulceration, erythema, mass or foreign body identified. Bilateral ureteral orifices were located on the area of the trigone and were very small in size. Bilateral clear ureteral jets were observed. An 8 Marshallese cone-tip catheter was then used to gently cannulate the left ureteral orifice, and Isovue was injected in retrograde fashion under fluoroscopic visualization. There were no filling defects, evidence of obstruction or dilation of the ureter was identified. This process was repeated on the patient's right side and once again there were no filling defects or evidence of obstruction seen. An attempt was then made at passage of a Pollack catheter through the ureteral orifice for obtaining selective cytology which was unsuccessful. Decision was made to place bilateral ureteral stents and bring the patient back for ureteroscopy for further evaluation of her hematuria. A 0.035 Glidewire was then passed into the left ureteral orifice and curling was identified in the renal pelvis on fluoroscopic visualization. A 6 Marshallese 24 cm double-J stent was then inserted over the guidewire with positioning inside the renal pelvis as well as the urinary bladder. This process was then repeated on the patient's right side as well. The patient's bladder was then emptied and the case was terminated. She tolerated the procedure well without complication. Grafts/Implants Used: 6x24 JJ stents bilaterally - Complications none - Admit VTE Documentation VTE Present on Admission: Yes VTE Mechan Device Prophylaxis: SCD's VTE Pharm Prophylaxis ordered?: No Reason prophylaxis not ordered:: Treatment Not Indicated
--- NOTE | 2019-10-06 08:31 | DCINST_ITS ---
Discharge Diet: No Restrictions Discharge Activity: May not drive while taking narcotic pain medications. May resume sexual activity in: 2 weeks Call your doctor if you observe: Fever of 101 or Higher, Inability to urinate, Inability to have a bowel movement, Uncontrolled pain Allergies/Adverse Reactions: Allergies cefaclor [From Ceclor] Allergy (Verified 10/06/19 07:25) Hives erythromycin base [Erythromycin Base] Allergy (Verified 10/06/19 07:25) Upset Stomach moxifloxacin HCl [From Avelox] Allergy (Verified 10/06/19 07:25) Hives Penicillins Allergy (Verified 10/06/19 07:25) Upset Stomach Medications to take at Discharge Albuterol Inhaler [Ventolin Hfa] 2 puff INHALATION Q4H PRN PRN 09/02/13 Aripiprazole 2 mg PO DAILY 06/09/19 Vilazodone Hydrochloride [Viibryd] 20 mg PO DAILY 06/09/19 traZODone [Desyrel] 50 mg PO QHS 06/09/19 Ibuprofen 600 mg PO DAILY 07/24/19 omeprazole 40 mg capsule,delayed release 40 mg PO DAILY #30 cap 09/03/19 promethazine 12.5 mg tablet 12.5 mg PO TID PRN #30 tab 09/04/19 Primary Care Physician: Ezequiel Lepe MD [Primary Care Provider] - Test Results: Test results from this visit will be discussed in further detail at your follow- up appointment, if applicable. Please Follow Up With: Luisa Mendez MD When: call office for appt Proposed Discharge Date: 10/06/19
[2019-10-06] MEDS: Lubricating Jelly 60 GM Tube 30 GM TOPICAL (08:58)
[2019-10-06 09:33] VITALS: BP 123/67; BP 124/79; PULSE 82; RESP 16; TEMP 36.4; O2SAT 96
[2019-10-06 09:48] VITALS: BP 123/67; BP 131/79; PULSE 75; RESP 16; O2SAT 95
[2019-10-06 10:15] VITALS: BP 113/77; BP 123/67; PULSE 75; RESP 16; TEMP 36.1; O2SAT 97
[2019-10-06] MEDS: oxyCODONE 5 MG Tablet PO (10:50)
[2019-10-06] MEDS: Acetaminophen 325 MG Tablet PO (10:51)
[2019-10-06 11:00] VITALS: BP 123/67
[2019-10-06 11:33] VITALS: BP 123/67; BP 144/95; PULSE 75; RESP 16; TEMP 37.1; O2SAT 96
== END 2019-10-06 11:35 | disposition home or self-care (01) ==
LOC: SDC 07:03 → AC 07:03
PROVIDERS: PCP Internal Medicine; Referring Provider Urology; Visit Provider Urology
PROC: (CPT 52353; principal; 2019-10-06 08:40)
DX: N20.0 Calculus of kidney (principal); R31.0 Gross hematuria; J44.9 Chronic obstructive pulmonary disease, unspecified; M19.90 Unspecified osteoarthritis, unspecified site; K21.9 Gastro-esophageal reflux disease without esophagitis; F32.9 Major depressive disorder, single episode, unspecified; F41.9 Anxiety disorder, unspecified; F17.210 Nicotine dependence, cigarettes, uncomplicated; E66.9 Obesity, unspecified; Z68.42 Body mass index [BMI] 45.0-49.9, adult; Z79.1 Long term (current) use of non-steroidal anti-inflammatories (NSAID); Z79.51 Long term (current) use of inhaled steroids; Z79.899 Other long term (current) drug therapy; Z88.0 Allergy status to penicillin; Z88.1 Allergy status to other antibiotic agents; Z87.442 Personal history of urinary calculi; Z11.59 Encounter for screening for other viral diseases
CPT/HCPCS: 52332; 76000; 87635; 88108; 88305; 88313; 88341; 88342; G2023; J7120; C2617; J0744; J2405; U0004

== ENCOUNTER → 2019-10-08 10:49 | Outpatient (CLI) | payer MEDICARE, MEDICAID, SELFPAY ==
[2019-10-06 07:27] VITALS: BMI 47.3
--- NOTE | 2019-10-08 10:58 | RAD_ITS ---
STUDY: X-RAY - ABDOMEN/PELVIS REASON FOR EXAM: Female, 44 years old. HAD BILATERAL STENTS PLACED 2 DAYS AGO, ONE FELL OUT TECHNIQUE: Single AP view of the abdomen / pelvis. COMPARISON: None. FINDINGS: Normal visualized lung bases. There is an unremarkable bowel gas pattern. A left-sided double-J stent catheter seen with the proximal tip in the left renal pelvis and distal tip in the urinary bladder. There are calcified phleboliths in the pelvis. Normal visualized osseous structures. RAD/Abdomen Single View IMPRESSION: Left-sided double-J stent catheter is seen. Electronically Signed: Michael Jacome, at 15:39 EDT , Service support ,
== END ==
PROVIDERS: PCP Internal Medicine; Referring Provider Urology; Visit Provider Urology
DX: R31.9 Hematuria, unspecified (principal); R10.9 Unspecified abdominal pain; N20.0 Calculus of kidney
CPT/HCPCS: 74018

== ENCOUNTER 2019-10-09 19:13 | Emergency (ER) | payer MEDICARE, MEDICAID, SELFPAY ==
[2019-10-09 19:14] VITALS: BP 118/78; PULSE 85; RESP 15; TEMP 36.7; O2SAT 95; BMI 44.2
--- NOTE | 2019-10-09 19:36 | ED.VIS.GEN ---
History of Present Illness Chief Complaint: Other, Pain/Inj Detail of Chief Complaint: Fever 101.8 ?F, left lower quadrant pain, nausea/vomiting/diarrhea Informant: Patient Onset: Today - Today onset of fever, vomiting and diarrhea, Yesterday - Today nausea Context: Sudden Onset Timing: - - Previously documented Quality: Read HPI and pain Location: Left lower quadrant Current Severity: Mild Maximum Severity: Moderate Worsened by: Movement Relieved by: Nothing Associated Symptoms: Fever resolved with 650 mg of Tylenol Narrative: Patient is a 44-year-old woman who had a cystoscopy, bilateral retrograde pyelograms, bilateral urethral stent placement for evaluation of flank pain, gross hematuria and kidney calculi. Patient states she was placed on antibiotics because urine revealed evidence of infection. She does not know culture results. She is presently on Bactrim. She states she is having 1 loose stool per hour. She is vomited 4 times today. She denies hematemesis, melena hematochezia. She denies bright red blood per rectum. She does report thirst, dry mouth and denies lightheadedness. She is not diabetic. She has no known history of renal disease. Patient denies headache, visual, ocular auditory symptoms. She denies decreased hearing, ringing in ears or ear pain. She denies rhinorrhea, congestion or postnasal drainage. She denies dysphasia or dysphonia or sore throat. She denies chest pain of any type. She denies shortness of breath. She does report discomfort with urination. She was treated with prophylactic antibiotics prior to surgery. She states she is present taking Bactrim for urinary tract infection. He denies prior history of Pseudomonas in a colitis. Prior similar symptoms: No Recent Illness/Hospitalization: Yes - Past Medical History (1) Anxiety and depression Status: Acute (2) Biliary dyskinesia Status: Acute (3) GERD (gastroesophageal reflux disease) Status: Acute (4) Gross hematuria Status: Acute (5) Kidney calculi Status: Acute (6) Mass of right lung Status: Acute (7) Nasal polyp Status: Acute (8) Asthma Status: Chronic (9) Chronic bronchitis Status: Chronic (10) Chronic neutrophilia Status: Chronic (11) Obesity Status: Chronic (12) Tobacco abuse Status: Chronic Past Medical History - Allergies and Home Meds Allergies/Adverse Reactions: Allergies cefaclor [From Ceclor] Allergy (Verified 10/09/19 19:18) Hives erythromycin base [Erythromycin Base] Allergy (Verified 10/09/19 19:18) Upset Stomach moxifloxacin HCl [From Avelox] Allergy (Verified 10/09/19 19:18) Hives Penicillins Allergy (Verified 10/09/19 19:18) Upset Stomach Primary Care Physician: Ezequiel Lepe MD [Primary Care Provider] - Prior records reviewed: Yes Surgical History: no surgical history, hysterectomy, - Lives: Alone Smoking Status: Current every day smoker Alcohol: Rare Drugs: None - Family History Maternal Family History: Family History (Last Reviewed 10/06/19 @ 08:[address] Luisa Mendez MD) Mother CVA (cerebral vascular accident) Father Diabetes Heart disease Myocardial infarction Other Anxiety Arthritis Melanoma Respiratory disease Family History: Reports: Heart Disease Review of Systems General: Reports: Chills, Fever. Denies: Malaise, Subjective, Sweats, Weight loss Eyes: Denies: Visual changes - bilaterally, Blurred Vision - bilaterally ENT: Denies: Bilateral ear pain, Rhinorrhea, Sore throat Cardiovascular: Denies: Chest pain, Palpitations Respiratory: Denies: Dyspnea, Cough, Dyspnea on exertion Gastrointestinal: Reports: Abdominal pain, Nausea, Vomiting, Diarrhea. Denies: Melena, Hematochezia Genitourinary: Reports: Dysuria, Hematuria, Frequency Musculoskeletal: Denies: Myalgias, Arthralgias, Neck pain, Back pain, Swelling, Extremity Pain, -, - Skin: Denies: Rash, Wounds Neurological: Denies: Headache, Weakness, Numbness Psych: Reports: Depression, Anxiety Endocrine: Denies: Polyuria, Polydipsia Hematologic: Denies: Easy bruising, Easy bleeding Physical Exam Vital Signs/Narrative: Vital Signs Temp Pulse Resp BP Pulse Ox 10/09/19 19:14 98.1 F 85 15 118/78 95 Inital Vital Signs reviewed: Yes - Patient did take antipyretic approximately 2 hours ago General: Well nourished, Well developed, Obese, Acute Distress Head: Normocephalic, Atraumatic Eyes: Perrl, EOMI. Negative for: Pale conjunctiva, Scleral icterus ENT: No rhinorrhea, TM's clear, Dry mucous membranes Neck: Supple, Nontender, No lymphadenopathy, No JVD Cardiovascular: Regular rate, Regular rhythm, No murmurs, Normal S1, Normal S2 Respiratory: No distress, CTA bilaterally, Chest nontender Abdomen: Soft, Nondistended, Tender - Tenderness left lower quadrant, Hypoactive bowel sounds. Negative for: Nontender, Normal bowel sounds Rectal: Deferred Back: Nontender, Normal Inspection, CVA tenderness - I laterally Extremities: Nontender, No edema Skin: Normal color, No rash, No Trauma. Negative for: Cyanosis, Diaphoresis, Jaundice Neurological: Alert, Oriented x3, Cranial nerves II-XII grossly intact, Normal Strength, Normal Sensation, Normal Gait Psychological: Normal affect Diagnostic/Tx/Re-eval Laboratory Results 10/09/19 10/09/19 10/09/19 19:40 19:40 19:40 WBC 12.7 H RBC 4.57 Hgb 13.8 Hct 42.3 MCV 92.6 MCH 30.2 MCHC 32.6 RDW Std Deviation 43.9 RDW Coeff of Seaid 13.1 Plt Count 343 MPV 9.8 Immature Gran % (Auto) 0.500 Neut % (Auto) 58.0 Lymph % (Auto) 33.5 [place] % (Auto) 6.0 Eos % (Auto) 1.5 Baso % (Auto) 0.5 Absolute Neuts (auto) 7.4 Absolute Lymphs (auto) 4.26 Nucleated RBC % 0 Sodium 140 Potassium 4.4 Chloride 108 H Carbon Dioxide 26.0 Anion Gap 6 BUN 13 Creatinine 0.77 Estim Creat Clear Calc 85.46 Est GFR (MDRD) Af Amer 104 Est GFR (MDRD) Non-Af 86 BUN/Creatinine Ratio 16.9 Glucose 99 Lactic Acid 0.9 Calcium 8.9 Urine Color Urine Clarity Urine pH Ur Specific [place] Urine Protein Urine Glucose (UA) Urine Ketones Urine Occult Blood Urine Nitrite Urine Bilirubin Urine Urobilinogen Ur Leukocyte Esterase Urine RBC Urine WBC Ur Squamous Epith Cells Urine Bacteria Urine Mucus 10/09/19 19:40 WBC RBC Hgb Hct MCV MCH MCHC RDW Std Deviation RDW Coeff of [place] Plt Count MPV Immature Gran % (Auto) Neut % (Auto) Lymph % (Auto) [place] % (Auto) Eos % (Auto) Baso % (Auto) Absolute Neuts (auto) Absolute Lymphs (auto) Nucleated RBC % Sodium Potassium Chloride Carbon Dioxide Anion Gap BUN Creatinine Estim Creat Clear Calc Est GFR (MDRD) Af Amer Est GFR (MDRD) Non-Af BUN/Creatinine Ratio Glucose Lactic Acid Calcium Urine Color Yellow Urine Clarity Sl. Cloudy Urine pH 6.5 Ur Specific [place] 1.015 Urine Protein 100 H Urine Glucose (UA) Normal Urine Ketones Negative Urine Occult Blood 250 H Urine Nitrite Positive H Urine Bilirubin 1 H Urine Urobilinogen 1 H Ur Leukocyte Esterase 500 H Urine RBC > 100 SEEN Urine WBC 5-10 SEEN Ur Squamous Epith Cells 0-5 SEEN Urine Bacteria 0 SEEN Urine Mucus 0 SEEN She is elevated 12.7 which is a nonspecific marker and could be secondary to stress, nausea vomiting diarrhea. She has not had a bowel movement in 2 and half hours here. Urine does not reveal evidence of infection. Her urologist was paged. I was informed by nursing staff twice the patient is upset that she is still here would like to go home. She was made aware that I was caring for 2 critical patients. She is now upset that she was sent to the emergency department. - Medical Decision Making With history of recent urologic instrumentation, urinary tract infection and fever will evaluate for sepsis. Because she received antibiotics preoperatively, his present antibiotics and now reports profuse diarrhea need to evaluate for pseudomembranous enterocolitis, C. difficile. CBC was obtained to assess for white count and H&H. Basic metabolic panel to assess electrolytes and more importantly renal function. Clinically patient is dehydrated and received 1 L of normal saline wide open. Patient's case was discussed with Dr. Luisa Mendez. Patient be discharged home. ED Disposition - Plan for ED Patient: Disposition: Home or Assisted Living Diagnosis: Left lower quadrant abdominal pain, Nausea vomiting and diarrhea Instructions: ED Vomiting and Diarrhea Nonspecific Adult, Ureteral Stents Referrals: Ezequiel Lepe MD [Primary Care Provider] - Luisa Mendez MD [STAFF PHYSICIAN] - Keep [facility] appointment
[2019-10-09 19:47] LABS: Bacteria 0 SEEN /hpf (None Seen); Mucous, Urine 0 SEEN /hpf (<or=2+)
[2019-10-09] MEDS: 0.9% Normal Saline 1,000 ML 1000 ML IV (19:48)
[2019-10-09 19:58] LABS: Absolute Lymphocyte Count 4.26 X10^3/uL (0.83-4.51); Absolute Neutrophil Count 7.4 X10^3/uL (2.0-7.7); Basophil# 0.06 X10^3/uL; Basophil% 0.5 % (0-1); Color, Urine Yellow (Yellow); Eosinophil# 0.19 X10^3/uL; Eosinophils% 1.5 % (0-5); Glucose, Dipstick Normal (Normal); Hematocrit 42.3 % (37-47); Hemoglobin 13.8 g/dL (12.0-15.0); Ketone-Dipstick Negative (Negative); Leukocyte Esterase-Dipstick 500 /ul (Negative); Lymphocyte # 4.26 X10^3/ul (4.0); Lymphocyte % 33.5 % (19-41); Mean Corp Hgb Conc 32.6 g/dL (32-36); Mean Corpuscular Hgb 30.2 pg (27.0-32.0); Mean Corpuscular Volume 92.6 fL (81-99); Mean Platelet Vol. 9.8 fl (6.2-12.0); Monocyte# 0.76 X10^3/uL; NRBC Flagged by Analyzer 0 % (0-5); Neutrophil # 7.38 X10^3/uL (2.7-7.7); Nitrite-Dipstick Positive (Negative); Occult Blood-Urine 250 /ul (Negative); Platelet Count 343 K/mm3 (150-450); Protein-Dipstick 100 mg/dl (Negative); RBC Distribution Width CV 13.1 % (11.6-14.6); RBC Distribution Width SD 43.9 fl (35.1-43.9); Red Blood Count 4.57 M/mm3 (4.2-5.4); Specific Gravity, Urine 1.015 (1.002-1.030); Urine Clarity Sl. Cloudy (Clear); Urine Urobilinogen 1 mg/dl (Normal); Urine pH 6.5 (5.0 - 8.0); White Blood Count 12.7 K/mm3 (4.4-11.0)
[2019-10-09] MEDS: Ondansetron 4 MG/2 ML Vial IV (20:03)
[2019-10-09] MEDS: Morphine 4 MG/ML Syringe IV (20:04)
[2019-10-09 20:11] LABS: Red Blood Cells-Urine > 100 SEEN /hpf (0-5); Squamous Epithelial Cells - UA 0-5 SEEN /hpf (5-10); Urine Bilirubin Dipstick 1 mg/dL (Negative); White Blood Cells 5-10 SEEN /hpf (0-5)
[2019-10-09 20:29] LABS: Lactic Acid 0.9 mmol/L (0.4-1.9)
[2019-10-09 20:30] LABS: Anion Gap 6 (5-15); BUN 13 mg/dL (7-18); BUN/Creat Ratio 16.9 RATIO (10-20); Calcium,Total 8.9 mg/dL (8.5-10.1); Chloride 108 mmol/L (98-107); Creatinine, Serum 0.77 mg/dL (0.55-1.02); EST Glomerular Filtration Rate 86 mL/min (>60); Est Glom Filt Rate - Afr Amer 104 mL/min (>60); Estimated Creatinine Clearance 85.46 ml/min; Glucose 99 mg/dL (74-106); Potassium 4.4 mmol/L (3.5-5.1); Sodium Level 140 mmol/L (136-145)
[2019-10-09 21:23] VITALS: BP 126/64; PULSE 76; RESP 12; O2SAT 93
--- NOTE | 2019-10-09 22:03 | ED.RN ---
pt upset that hasn't been back in to see pt. demanded that this nurse take the IV out. pt stated her car was in the parking lot and she would just leave. discussion with nurse that she was not to drive d/t having morphine IV. pt on phone with dtr to come pick pt up. update given to Dr. Hoffman.
[2019-10-09 22:07] VITALS: BP 126/64; PULSE 75; RESP 16; O2SAT 99
--- NOTE | 2019-10-09 22:37 | ED.RN ---
pt left ER without paper work
== END 2019-10-09 22:38 | disposition home or self-care (01) ==
PROVIDERS: Emergency Provider Emergency Medicine; PCP Internal Medicine
DX: R10.32 Left lower quadrant pain (principal); R19.7 Diarrhea, unspecified; R11.2 Nausea with vomiting, unspecified; E86.0 Dehydration; N39.0 Urinary tract infection, site not specified; R31.0 Gross hematuria; J42 Unspecified chronic bronchitis; J45.909 Unspecified asthma, uncomplicated; K21.9 Gastro-esophageal reflux disease without esophagitis; F32.9 Major depressive disorder, single episode, unspecified; F41.9 Anxiety disorder, unspecified; E66.9 Obesity, unspecified; F17.200 Nicotine dependence, unspecified, uncomplicated; Z79.899 Other long term (current) drug therapy; Z88.1 Allergy status to other antibiotic agents; Z88.0 Allergy status to penicillin; Z87.442 Personal history of urinary calculi
CPT/HCPCS: 80048; 81001; 83605; 85025; 96361; 96374; 96375; 99285; J7030; A4216; J2405

== ENCOUNTER 2019-10-15 05:52 | Day surgery (SDC) | payer MEDICARE, MEDICAID, SELFPAY ==
[2019-10-15] VITALS (9 sets, daily range): BP systolic 121–154; BP diastolic 59–99; PULSE 71–98; RESP 16–18; TEMP 36.3–36.7; O2SAT 92–97; BMI 48.8
--- NOTE | 2019-10-15 | KID_PTH ---
PATIENT: RAKESH HEARN LOC[place] [facility] [place][id number] AGE/SX: 44/F ROOM: RE10/15/[address]: Dr. Luisa Mendez MD : 1975 BED: DIS: 10/15/2019 SPEC #: [id number] RECD: 10/15/19 13:15 STATUS: ARIADNA RECorina #: [id number] MITCHELL: 10/15/19 00:[address]: Luisa Mendez DEPT: SURGICAL PATHOLOGY RECD BY: Andrew Ochoa ENTERED: 10/15/19 13:16 SP TYPE: KIDNEY OTHR DR: Dr. Ezequiel Lepe MD Tissues: A - Kidney, NOS B - Kidney, NOS C - Kidney, NOS Procedures: Surgery Specimen Level IV HEADER OPERATION: Cyst, ureteroscopy PRE-OP DIAGNOSIS: Hematuria TISSUE SUBMITTED: A - Left renal biopsy #1, B - Left renal biopsy #2, C - Left renal brush biopsy MICROSCOPIC DIAGNOSIS A. Left renal biopsy #1: No tissue is identified. B. Left renal biopsy #2: Tissue did not survive processing. C. Left renal brush (cell block and cytospin): No tissue is identified. SJ:roxanne 10/16/19 COMMENT Please correlate with corresponding cytology specimen ([id number]). This case is discussed with Dr. Mendez on 10/19/19. Case has been reviewed in consultation with Dr. Castaneda who concurs with the above diagnosis. IDC:AM MICROSCOPIC DESCRIPTION Slides are reviewed. GROSS DESCRIPTION A - Received in fixative is one container labeled with the patient's name and designated left renal biopsy #1. No obvious tissue is identified. The specimen is totally submitted for cell block preparation. B - Received in fixative is one container labeled with the patient's name and designated left renal biopsy #2. The specimen consists of a minute fragment of buckner soft tissue measuring <0.1 cm in greatest dimension. The specimen is totally submitted in one cassette and also for cell block preparation, cassette #2. C - Received labeled with the patient's name and designated left renal brush biopsy. The specimen consists of a metallic endoscopic cytobrush with adherent minute fragments of buckner-red tissue brush in 2 ml of clear red fluid and labeled with the patient's name and and designated per the requisition as brush. The material is dislodged from the brush and submitted for cytology preparation including cell block. / SJ:rg 10/15/19 TC: Cannot code CPT: 74294 x3, 91653
--- NOTE | 2019-10-15 | FLU_PTH ---
PATIENT: RAKESH HEARN LOC: [facility] – [place] U#:[id number] AGE/SX: 44/F ROOM: RE10/15/[address]: Dr. Luisa Mendez MD : 1975 BED: DIS: 10/15/2019 SPEC #: [id number] RECD: 10/15/19 13:07 STATUS: ARIADNA KATHY #: [id number] MITCHELL: 10/15/19 00:[address]: Luisa Mendez DEPT: CYTOLOGY RECD BY: Andrew Ochoa ENTERED: 10/15/19 13:09 SP TYPE: Fluid OTHR DR: Dr. Ezequiel Lepe MD Tissues: A - Urinary tract, NOS B - Urinary tract, NOS C - Urinary tract, NOS Procedures: Special Stain Group II Surgery Specimen Level IV Cytospin Fluid HEADER OPERATION: Cysto, ureteroscopy with cytology PRE-OP DIAGNOSIS: Hematuria TISSUE SUBMITTED: A - Left renal washing for cytology, B - Right renal washing for cytology, C - Left renal washing for cytology DIAGNOSIS CYTOLOGY A. Left renal washing for cytology (cytospin and cell block): Clusters of urothelial cells with moderate atypia noted. B. Right renal washing for cytology (cytospin and cell block): Clusters of urothelial cells with minimal atypia are noted. C. Left renal washing for cytology (cytospin and cell block): Acellular specimen. SJ:roxanne 10/16/19 COMMENT Immunohistochemistry ([id number]) supports the above diagnosis. Correlation with clinical, radiologic findings and appropriate follow up are necessary. Please make reference to previous specimen ([id number]) urinary bladder fluid for cytology with diagnosis of atypical urothelial cells present. This case is discussed with Dr. Mendez on 10/19/19. This Case has been reviewed in consultation with Dr. Castaneda who concurs with the above diagnosis. CYTOLOGY STUDY Slides are reviewed. CYTOLOGY GROSS A - Received is 5 ml of red cloudy fluid labeled with the patient's name and and designated per the requisition as left renal. Submitted for cytology preparation including cell block. B - Received is 5 ml of light red cloudy fluid labeled with the patient's name and and designated per the requisition as right renal. Submitted for cytology preparation including cell block. C - Received is <0.25 ml of pink cloudy fluid labeled with the patient's name and and designated per the requisition as left renal. Submitted for cytology preparation including cell block. / 10/15/19 TC: CPT: 92532 x3, 57553 x3
--- NOTE | 2019-10-15 | IMM_PTH ---
PATIENT: RAKESH HEARN LOC: [facility] – [place] U#:[id number] AGE/SX: 44/F ROOM: RE10/15/[address]: Dr. Luisa Mendez MD : 1975 BED: DIS: 10/15/2019 SPEC #: [id number] RECD: 10/19/19 09:25 STATUS: ARIADNA RECorina #: [id number] MITCHELL: 10/15/19 00:[address]: Luisa Mendez DEPT: IMMUNOHISTOCHEMISTRY RECD BY: Ritika Olmos ENTERED: 10/19/19 09:26 SP TYPE: IMMUNO OTHR DR: Dr. Ezequiel Lepe MD Tissues: A - Urinary tract, NOS Procedures: CK20 (add) P53 (add) CK7 (initial) PHYSICIAN & INSTITUTION [place] [id number] SPECIMEN INFORMATION: Tissue Source: A - Left renal washing Clinical Info: Hematuria Specimen Number: [id number] CPT code: 11199, 06944 x2 METHODOLOGY: Deparaffinized sections of prefer/formalin-fixed tissue or PAP/DQ stained slides are incubated with monoclonal/polyclonal antibodies/oligonucleotide probes. Localization is made via biotin free immunoperoxidase method. Appropriate controls are performed and reacted as expected. Results on target cell population are indicated in the following table: RESULTS: ANTIBODY / CLONE RESULT Block A CK7 (OV-TL12/30) positive CK20 (KS20.8) negative (positive only in umbrella cells) P53 (DO-7) positive, rare cells, weak These tests were developed and their performance characteristics determined by [facility]. They may not have been cleared or approved by the U.S. Food and Drug Administration. The FDA has determined that such clearance or approval is not necessary. The above immunohistochemical/dualISH markers are ordered and reviewed by the Pathologist. INTERPRETATION: A. Left renal washing: Urothelial cells with moderate atypia. Negative for malignancy. SJ:roxanne 10/19/19 Case has been reviewed in consultation with Dr. Castaneda who concurs with the above diagnosis. IDC:MARIAM
[2019-10-15] MEDS: Lactated Ringers 1,000 ML 100 ML IV (06:37)
[2019-10-15] MEDS: Ciprofloxacin 400 MG/200 ML BAG 200 MG IV (07:40)
[2019-10-15] MEDS: Lubricating Jelly 60 GM Tube 30 GM TOPICAL (07:50)
[2019-10-15 08:41] LABS: Cytology, Body Fluid / CSF SEE PATHOLOGY REPORT
--- NOTE | 2019-10-15 08:54 | DCINST_ITS ---
Discharge Diet: No Restrictions Discharge Activity: May not drive while taking narcotic pain medications. Call your doctor if you observe: Fever of 101 or Higher, Inability to urinate, Inability to have a bowel movement Allergies/Adverse Reactions: Allergies cefaclor [From Ceclor] Allergy (Verified 10/13/19 10:17) Hives ciprofloxacin Allergy (Verified 10/15/19 07:10) Hives erythromycin base [Erythromycin Base] Allergy (Verified 10/13/19 10:17) Upset Stomach moxifloxacin HCl [From Avelox] Allergy (Verified 10/13/19 10:17) Hives Penicillins Allergy (Verified 10/13/19 10:17) Upset Stomach Medications to take at Discharge RX: Albuterol Inhaler [Ventolin Hfa] 2 puff INHALATION Q4H PRN PRN 09/02/13 RX: Aripiprazole 2 mg PO DAILY 06/09/19 RX: Vilazodone Hydrochloride [Viibryd] 20 mg PO DAILY 06/09/19 RX: traZODone [Desyrel] 50 mg PO QHS 06/09/19 omeprazole 40 mg capsule,delayed release 40 mg PO DAILY #30 cap 10/08/19 Smz/Tmp Ds [Bactrim Ds] 1 tab PO DAILY 10/09/19 [place]/Sod Phos/Mblue/Hyoscy [Urogesic-Blue Tablet] 1 ea PO Q6H 10/13/19 Ondansetron [Zofran] 8 mg PO PRN PRN 10/13/19 Oxycodone HCl/Acetaminophen [Oxycodone-Acetaminophen 5-325] 2 ea PO TID 10/13/19 Primary Care Physician: Ezequiel Lepe MD [Primary Care Provider] - Test Results: Test results from this visit will be discussed in further detail at your follow- up appointment, if applicable. Please Follow Up With: Luisa Mendez MD When: call office for appt to be seen in one week Proposed Discharge Date: 10/15/19
--- NOTE | 2019-10-15 08:55 | OP.PCM_ITS ---
Problem List (1) Flank pain Status: Acute (2) Gross hematuria Status: Acute Report of Operation Date of Procedure: 10/15/19 Pre-Operative Diagnosis: gross hematuria, flank pain Post-Operative Diagnosis: same Surgery/Procedure Performed:: cystoscopy, bilateral ureteroscopy, renal pelvic biopsy, selective cytology bilateral Type of Anesthesia:: General Specimen's removed: bilateral cytologies, renal pelvic biopsies Description of Procedure: The patient is a 44-year-old female with gross hematuria who was taken to the operating room for evaluation last week. I was unable to obtain selective cytologies secondary to the anatomy of her ureteral orifices. At that time I did place bilateral ureteral stents. She now presents for further evaluation with ureteroscopy and selective cytologies bilaterally. All risks benefits and alternatives were discussed including that of COVID-19. She understood and agreed to proceed. The patient was taken to the operating room and placed on the operating room table. Anesthesia monitored the head, neck, airway, IV access and vital signs throughout the case. Once anesthesia was appropriately administered the patient was placed into dorsal lithotomy position was prepped and draped in usual sterile fashion. At this time a cystourethroscopy was performed and a 0.035 Glidewire was placed alongside the indwelling left ureteral stent which was then removed. Over the wire a Pollack catheter was placed and selective cytology from the patient's left side was obtained. At this time the wire was reinserted into the renal pelvis, the Pollack catheter was removed, and the flexible ureteroscope was placed over the wire. Access was obtained to the left renal pelvis. In the area of the midpole there was one calyx that had a mound like growth in the center. At this time 2 biopsies were taken and and a brush biopsy specimen was sent for evaluation. This was followed up with a second cytology from the area. At this time the cystoscope was used to insert a new glidewire and the patient's right ureteral orifice followed by a new Pollack catheter and selective cytology from the right. At this time the glide wire was replaced, and a flexible ureteroscopy was performed of the patient's right renal pelvis and calyces. There were no abnormalities identified in the patient's right side. Ureteroscopy was performed with direct visualization of the entire length of both ureters which were both negative. At this time the patient's bladder wa s emptied and the case was terminated. She was taken to the recovery room in good condition. There were no complications. Grafts/Implants Used: none - Complications none - Admit VTE Documentation VTE Present on Admission: Yes VTE Mechan Device Prophylaxis: SCD's VTE Pharm Prophylaxis ordered?: No Reason prophylaxis not ordered:: Treatment Not Indicated
[2019-10-15] MEDS: Ketorolac 30 MG/ML Syringe IV (09:11)
--- NOTE | 2019-10-16 14:45 | HP.PCM_ITS ---
Problem List (1) Flank pain Status: Acute (2) Gross hematuria Status: Acute History of Present Illness Date of Admission: 10/15/19 Chief Complaint: gross hematuria, flank pain The patient is a 44 year old F who is in the middle of an evaluation for gross hematuria. She has a negative CT scan and underwent cystoscopy with an attempt at selective cytologies and bilateral ureteroscopy. I was unable to gain access to her kidneys with ureteroscope or a open ended Pollack catheter. She now presents for selective cytologies and bilateral ureteroscopy after having ureteral stent dilation. Past Medical History Past Medical History (Chronic Problems): Chronic Problems (Last Reviewed 10/06/19 @ 08:[address] Luisa Mendez MD) Asthma (Chronic) Tobacco abuse (Chronic) Obesity (Chronic) Chronic neutrophilia (Chronic) Chronic bronchitis (Chronic) Medical History: Medical History (Last Reviewed 10/16/19 @ 14:[address] Luisa Mendez MD) Biliary dyskinesia (Acute) K82.8 Intestinal ulcer (Acute) K63.3 Anxiety and depression (Acute) F41.9, F32.9 Nasal polyp (Acute) J33.9 GERD (gastroesophageal reflux disease) (Acute) K21.9 History of pneumonia (Acute) Z87.01 H/O emotional problems (Acute) Z86.59 Chronic bronchitis (Chronic) J42 Arthritis (Acute) M19.90 Seasonal allergies (Acute) J30.2 Asthma J45.909 History of mononucleosis Z86.19 COPD (chronic obstructive pulmonary disease) J44.9 Allergies cefaclor [From Ceclor] Allergy (Verified 10/13/19 10:17) Hives ciprofloxacin Allergy (Verified 10/15/19 07:10) Hives erythromycin base [Erythromycin Base] Allergy (Verified 10/13/19 10:17) Upset Stomach moxifloxacin HCl [From Avelox] Allergy (Verified 10/13/19 10:17) Hives Penicillins Allergy (Verified 10/13/19 10:17) Upset Stomach Home Medications: Ambulatory Orders Medication Instructions Recorded Albuterol Inhaler [Ventolin Hfa] 2 puff INHALATION Q4H PRN PRN 09/02/13 Aripiprazole 2 mg PO DAILY 06/09/19 Vilazodone Hydrochloride [Viibryd] 20 mg PO DAILY 01/28/20 traZODone [Desyrel] 50 mg PO QHS 06/09/19 omeprazole 40 mg capsule,delayed 40 mg PO DAILY #30 cap 10/08/19 release Methenam/Sod Phos/Mblue/Hyoscy 1 ea PO Q6H 10/13/19 [Urogesic-Blue Tablet] Ondansetron [Zofran] 8 mg PO PRN PRN 10/13/19 Oxycodone HCl/Acetaminophen 2 ea PO TID 7 Days #20 tab 10/15/19 [Oxycodone-Acetaminophen 5-325] Smz/Tmp Ds [Bactrim Ds] 1 tab PO DAILY 3 Days #6 tab 10/15/19 Surgical History: Surgical History (Last Reviewed 10/16/19 @ 14:[address] 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 Luisa Mendez MD) Mother CVA (cerebral vascular accident) Father Diabetes Heart disease Myocardial infarction Other Anxiety Arthritis Melanoma Respiratory disease History Items: Heart Disease Review of Systems Constitutional: Denies: Anorexia, Chills, Fever Eyes: Denies: Vision Change HEENT: Denies: Visual Changes Cardiovascular: Denies: Chest Pain, Chest Pressure Respiratory: Denies: Cough, Shortness of Breath Gastrointestinal: Reports: Abdominal Pain, Nausea Genitourinary: Reports: Frequency, Hematuria, Urgency Gynecological: Denies: Breast symptoms Musculoskeletal: Denies: Muscle pain Skin: Denies: Wounds Neurological: Denies: Balance problems VTE Information - Inpt Only VTE Present on Admission: Yes VTE Mechan Device Prophylaxis: SCD's VTE Pharm Prophylaxis ordered?: No Reason prophylaxis not ordered:: Treatment Not Indicated - Physical Exam Vitals/I&O's: Vital Signs Temp Pulse Resp BP Pulse Ox 98.1 F 84 16 137/97 H 92 10/15/19 09:28 10/15/19 09:28 10/15/19 09:28 10/15/19 09:28 10/15/19 09:28 Oxygen Flow Rate (L/min) 2 Oxygen Delivery Method Room Air Weight: 129.1 kg Body Mass Index (BMI) 48.8 Finger Stick Blood Glucose 96 Intake and Output for Last 24 Hours 10/14/19 10/15/19 10/16/19 23:59 23:59 23:59 Intake Total 200 / 200 Balance 200 / 200 General: Alert, Oriented x3, Cooperative HEENT: Atraumatic, Normocephalic Oral: Moist Mucosa Neck: Supple, Trachea Midline Lungs: Normal air movement Cardiovascular: Regular rate, Regular Rhythm Abdomen: Soft, Non Tender, Non-Distended Extremities: No cyanosis Skin: No rashes Musculoskeletal: No Muscle Wasting Neurological: Cranial nerves II-XII grossly intact, Neuro grossly intact Psych/Mental Status: Normal Affect, Alert and oriented to time, place, person, mood and affect Assessment/Plan All Active Problems (Last Reviewed 10/06/19 @ 08:[address] Luisa Mendez MD) RUQ abdominal pain (Acute) Mass of right lung (Acute) Flank pain (Acute) Gross hematuria (Acute) Kidney calculi (Acute) Biliary dyskinesia (Acute) History of endoscopy (Resolved) Intestinal ulcer (Acute) Anxiety and depression (Acute) Nasal polyp (Acute) History of tonsillectomy (Resolved) History of partial hysterectomy (Resolved) History of ankle surgery (Resolved) History of sinus surgery (Resolved) GERD (gastroesophageal reflux disease) (Acute) History of pneumonia (Acute) H/O emotional problems (Acute) Arthritis (Acute) Seasonal allergies (Acute) Cystoscopy, bilateral ureteroscopy, bilateral selective urine cytologies, removal left ureteral stent Procedure Criteria Procedure Type: Essential Procedure Essential: Yes Criteria Statement: On 07/28/2019 the [place] Department of Health ([facility]) Public Order signed by [facility] Director Janet Llanes M.D., regarding the Management of Non-Essential Surgeries and Procedures for the purpose of preserving Personal Protective Equipment (PPE) and critical hospital capacity and resources within [place] went into effect as of 07/29/2019 at 5:00PM. According to the [facility] Public Order: This action will remain in full force and effect until the State of Emergency declared by the Governor no longer exists or the Director of the [facility] rescinds or modifies this Order. This [facility] order stated all non-essential or elective surgeries and procedures that utilize PPE should be delayed unless there is undue risk to the current or future health of a patient. After reviewing the aforementioned [facility] Public Order and the patient's clinical case, I have determined that the scheduled procedure meets the criteria to go forward. Risk to Patient if Procedure Delayed: Risk of metastasis or progression of staging if delayed - gross hematuria, urologic pathology
== END 2019-10-15 10:45 | disposition home or self-care (01) ==
LOC: SDC 05:53 → AC 05:54
PROVIDERS: Anesthesiology; PCP Internal Medicine; Referring Provider Urology; Visit Provider Urology
PROC: (CPT 52353; principal; 2019-10-15 07:20)
DX: R31.0 Gross hematuria (principal); N20.0 Calculus of kidney; Z11.59 Encounter for screening for other viral diseases; J44.9 Chronic obstructive pulmonary disease, unspecified; M19.90 Unspecified osteoarthritis, unspecified site; K21.9 Gastro-esophageal reflux disease without esophagitis; F32.9 Major depressive disorder, single episode, unspecified; F41.9 Anxiety disorder, unspecified; E66.9 Obesity, unspecified; F17.210 Nicotine dependence, cigarettes, uncomplicated; Z79.51 Long term (current) use of inhaled steroids; Z79.899 Other long term (current) drug therapy; Z88.0 Allergy status to penicillin; Z88.1 Allergy status to other antibiotic agents; Z87.01 Personal history of pneumonia (recurrent)
CPT/HCPCS: 00910; 52007; 76000; 87635; 88108; 88305; 88313; 88341; 88342; 94799; J7120; C1769; J0744; J2405; U0003

== ENCOUNTER → 2019-10-19 | Outpatient (CLI) | payer MEDICARE, MEDICAID, SELFPAY ==
[2019-10-15 06:26] VITALS: BMI 48.8
[2019-10-19 15:13] LABS: Anion Gap 6 (5-15); BUN 12 mg/dL (7-18); BUN/Creat Ratio 14.3 RATIO (10-20); Calcium,Total 8.8 mg/dL (8.5-10.1); Chloride 106 mmol/L (98-107); Creatinine, Serum 0.84 mg/dL (0.55-1.02); EST Glomerular Filtration Rate 78 mL/min (>60); Est Glom Filt Rate - Afr Amer 94 mL/min (>60); Glucose 102 mg/dL (74-106); Potassium 4.1 mmol/L (3.5-5.1); Sodium Level 139 mmol/L (136-145)
[2019-10-19 15:22] LABS: Color, Urine Yellow (Yellow); Glucose, Dipstick Normal (Normal); Ketone-Dipstick Negative (Negative); Leukocyte Esterase-Dipstick Negative /ul (Negative); Nitrite-Dipstick Negative (Negative); Occult Blood-Urine 150 /ul (Negative); Protein-Dipstick Negative (Negative); Urine Bilirubin Dipstick Negative (Negative); Urine Clarity Sl. Cloudy (Clear); Urine Urobilinogen Normal (Normal)
== END | disposition home or self-care (01) ==
PROVIDERS: PCP Internal Medicine; Referring Provider Urology; Visit Provider Urology
DX: R31.0 Gross hematuria (principal); R10.9 Unspecified abdominal pain
CPT/HCPCS: 36415; 80048; 81002; 87086

== ENCOUNTER → 2019-10-20 11:03 | Outpatient (CLI) | payer MEDICARE, MEDICAID, SELFPAY ==
[2019-10-15 06:26] VITALS: BMI 48.8
--- NOTE | 2019-10-20 11:10 | VDLE_ITS ---
Reason For Study: edema RIGHT LEFT GSV is normal. GSV is normal. CFV is compressible, spontaneous, phasic, CFV is compressible, spontaneous, phasic, competent and demonstrates normal competent, and demonstrates normal augmentation. augmentation. FV is compressible, spontaneous, phasic, FV is compressible, spontaneous, phasic, competent and demonstrates normal competent and demonstrates normal augmentation. augmentation. POP V is compressible, spontaneous, phasic, POP V is compressible, spontaneous, phasic, competent and demonstrates normal competent and demonstrates normal augmentation. augmentation. T/P Trunk is compressible. T/P Trunk is compressible. PTV is compressible. PTV is compressible. RT PerV is compressible. LT PerV is compressible. Procedure Exam performed in department. The exam was diagnostic. A preliminary report was called and/or faxed to Dr. Mendez. Interpretation Summary Deep veins of the lower extremities are bilaterally patent and compressible segmentally. There is no evidence of deep vein thrombosis on either side. Valvular competence appears intact within the proximal deep venous systems bilaterally. The great saphenous veins appear bilaterally patent and compressible segmentally. Ordering Physician: Luisa Mendez Performed By: Naseem Valdez RVT
== END ==
PROVIDERS: PCP Internal Medicine; Referring Provider Urology; Visit Provider Urology
DX: R22.43 Localized swelling, mass and lump, lower limb, bilateral (principal); Z98.890 Other specified postprocedural states
CPT/HCPCS: 93970

== ENCOUNTER → 2019-10-28 07:52 | Outpatient (CLI) | payer MEDICARE, MEDICAID, SELFPAY ==
[2019-10-15 06:26] VITALS: BMI 48.8
--- NOTE | 2019-10-28 08:25 | CT_ITS ---
STUDY: CT ABDOMEN AND PELVIS WITH AND WITHOUT CONTRAST REASON FOR EXAM: Female, 44 years old. GROSS HEMATURIA RADIATION DOSAGE (If Supplied By Facility): CTDIvol = ( 27.21 ) mGy, DLP = ( 5082.86 ) mGycm TECHNIQUE: Transaxial images were obtained from the dome of the diaphragm to the symphysis pubis without oral contrast. Intravenous was administered. Sagittal and coronal images were reconstructed. Individualized dose optimization techniques were used for this CT. COMPARISON: Comparison is made with prior examination dated August 29, 2019. FINDINGS: Stable 1.3 cm noncalcified nodule in the lateral peripheral aspect of the right lower lobe. Fat density is seen within the nodule. The visualized portions of the heart are within normal limits. There is decreased attenuation of the liver consistent with steatosis. The patient is status post complete cystectomy. Normal spleen. Normal pancreas. There is a small, circumscribed, smooth, low attenuation left adrenal mass, consistent with an adrenal adenoma. This measures 7.4 mm. Normal right adrenal gland. Normal right kidney. Normal left kidney. Normal visualized stomach. Normal small intestine. There are scattered colonic diverticula consistent with diverticulosis. The appendix is visualized and appears normal. There is scattered atherosclerotic calcification of the abdominal aorta, without a demonstrated aneurysm. Normal inferior vena cava. There is borderline retroperitoneal lymphadenopathy with enlarged nodes no greater than 10mm in the short axis diameter. Normal urinary bladder. There is absence of the uterus consistent with a prior hysterectomy. There is a 3.9 cm x 2.4 cm cyst in the left ovary. Normal abdominal wall. Normal osseous structures. CT/CT Abd/Pelvis W/WO Contrast IMPRESSION: Fatty filtration of the liver. 3.9 cm x 2.4 cm cyst in the left ovary. Scattered sigmoid diverticula. Findings suggestive of a 7.4 mm adenoma in the left adrenal gland. Electronically Signed: Michael Jacome, at 9:12 EDT , Service support ,
== END ==
PROVIDERS: PCP Internal Medicine; Referring Provider Urology; Visit Provider Urology
DX: M54.5 Low back pain (principal); R31.0 Gross hematuria; N99.89 Other postprocedural complications and disorders of genitourinary system
CPT/HCPCS: 74178; Q9967

== ENCOUNTER 2019-11-08 11:59 | Emergency (ER) | payer MEDICARE, MEDICAID, SELFPAY ==
[2019-10-15 06:26] VITALS: BMI 48.8
[2019-11-08 12:00] VITALS: BP 150/90; PULSE 86; RESP 18; TEMP 36.6; O2SAT 99; BMI 44.2
--- NOTE | 2019-11-08 12:25 | ED.DCSUM_ITS ---
History of Present Illness Informant: Patient Onset: Yesterday Context: Gradual Onset Injury: Bending Timing: Continuous Quality: Sharp Location: Lumbar Current Severity: Moderate Maximum Severity: Severe Worsened by: improves with: Movement, Ambulation, Bending Relieved by: Remaining Still Narrative: 44-year-old female presents to the emergency department with lower back pain. The patient states that for the last week she has had lower back pain bilaterally. Slightly worse on the left side. It is been constant. Is worse with any type of movement or walking bending or twisting. Denies any specific inciting injury or trauma. It does not radiate into her legs. She denies any lower extremity numbness tingling or weakness. She has not lost control of her bowel or bladder. She has not had any difficulty urinating. Patient is tearful as she is being worked up as an outpatient for a lesion on her kidney and is due to have a surgical procedure on this in about 10 days. She has not had any fevers or chills. She denies any night sweats. She denies any history of back surgery. She denies IV drug abuse. She has not been taking any medications at home [id number] for her symptoms. Prior similar symptoms: Yes, With Prior Back Pain Recent Illness/Hospitalization: No <Jean Montilla - Last Filed: 11/08/19 12:37> <Satnam Hoffman - Last Filed: 11/08/19 13:17> Chief Complaint: Back Past Medical History Prior records reviewed: Yes Past Medical History: - - GERD, psychiatric disorder Surgical History: hysterectomy, - Lives: With Family Smoking Status: Current every day smoker Alcohol: Occasional Drugs: None - Family History Maternal Family History: Family History (Last Reviewed 10/16/19 @ 14:[address] Luisa Mendez MD) Mother CVA (cerebral vascular accident) Father Diabetes Heart disease Myocardial infarction Other Anxiety Arthritis Melanoma Respiratory disease Family History: Reports: Heart Disease <Jean Montilla - Last Filed: 11/08/19 12:37> - Family History Maternal Family History: Family History (Last Reviewed 10/16/19 @ 14:[address] Luisa Mendez MD) Mother CVA (cerebral vascular accident) Father Diabetes Heart disease Myocardial infarction Other Anxiety Arthritis Melanoma Respiratory disease <Kenyatta Hoffmano - Last Filed: 11/08/19 13:17> - Allergies and Home Meds Allergies/Adverse Reactions: Allergies cefaclor [From Ceclor] Allergy (Verified 11/08/19 12:02) Hives ciprofloxacin Allergy (Verified 11/08/19 12:02) Hives erythromycin base [Erythromycin Base] Allergy (Verified 11/08/19 12:02) Upset Stomach moxifloxacin HCl [From Avelox] Allergy (Verified 11/08/19 12:02) Hives Penicillins Allergy (Verified 11/08/19 12:02) Upset Stomach Primary Care Physician: Ezequiel Lepe MD [Primary Care Provider] - 3-5 Days Review of Systems All systems negative except as indicated General: Denies: Chills, Fever, Malaise, Subjective, Sweats Eyes: Denies: Visual changes - bilaterally, Diplopia ENT: Denies: Rhinorrhea, Sore throat Cardiovascular: Denies: Chest pain, Palpitations Respiratory: Denies: Dyspnea, Cough, Dyspnea on exertion Gastrointestinal: Denies: Abdominal pain, Nausea, Vomiting, Diarrhea, Melena, Hematochezia Genitourinary: Denies: Dysuria, Hematuria, Frequency Musculoskeletal: Reports: Back pain. Denies: Myalgias, Arthralgias, Neck pain, Swelling, Extremity Pain Skin: Denies: Rash, Wounds Neurological: Denies: Headache, Weakness, Parasthesia, Numbness <Jean Montilla - Last Filed: 11/08/19 12:37> Physical Exam Vital Signs/Narrative: Vital Signs Temp Pulse Resp BP Pulse Ox 11/08/19 12:00 98 F 86 18 150/90 H 99 Inital Vital Signs reviewed: Yes General: Well nourished, Well developed Head: Normocephalic, Atraumatic Eyes: Perrl, EOMI ENT: Moist mucous membranes, No rhinorrhea Neck: Supple, Nontender Cardiovascular: Regular rate, Regular rhythm, No murmurs Respiratory: No distress, CTA bilaterally, Chest nontender Abdomen: Soft, Nontender, Nondistended, Normal bowel sounds Back: Normal Inspection, Nontender, Paraspinal Tenderness, Negative SLR - Right, Negative SLR - Left. Negative for: Surgical Scar, Well-Healed, Spinal tenderness, CVA tenderness Extremeties: Nontender, No edema Skin: Normal color, No rash Neuro: Alert, Oriented, Normal Strength, Normal Sensation, Normal DTR, Normal Gait, Normal Reflexes Psychological: Normal affect, Normal Mood <Jean Montilla - Last Filed: 11/08/19 12:37> Vital Signs/Narrative: Vital Signs Temp Pulse Resp BP Pulse Ox 11/08/19 12:59 16 11/08/19 12:00 98 F 86 18 150/90 H 99 <Satnam Hoffman - Last Filed: 11/08/19 13:17> Diagnostic/Tx/Re-eval - Medical Decision Making We reviewed the patient's records she has had multiple CAT scans this month there was no evidence of any metastasis from this lesion or growth onto the spine on the CAT scans. Her symptoms are not consistent with acute spinal cord compression nor is her physical exam. We will treat the patient symptomatically with Toradol and I will prescribe her some Percocet and advised her to have close follow-up with her doctor or she is to return for worsening symptoms which we discussed. <Jean Montilla - Last Filed: 11/08/19 12:37> - Medical Decision Making She presents with low back pain that she localizes over the lower lumbar sacral region. She denies bowel bladder dysfunction. She does report night sweats. She is had night sweats for sometimes. Denies weight gain or weight loss. She denies saddle paresthesia or anesthesia. She denies loss of bowel control or inability urinate. She denies radicular pain. Movement does exacerbate her pain. She denies history of trauma i.e. lifting, pushing or pulling anything heavy or fall. She has no history of back problems. She does have history of abnormal cells noted on renal biopsy. She is scheduled to see urologist that [facility]. Reviewed CT scan performed at [facility] and reviewed urologist operative note. Patient vital signs were noted. HEENT, cardiac and respiratory exam unremarkable. Abdomen is soft nontender. She does have reproducible back pain. Straight leg test and crossover test are negative. Patella and ankle reflex are 1-2+ symmetric. EHL is intact. 5/5 strength plantar dorsiflexion of the foot. No quadricep weakness noted. There is no altered sensation dorsal lateral aspect of the foot. DP and PT pulse are palpable. There is no clonus and Babinski test was negative. Since this is mechanical will treat symptomatically and discharged home. <Satnam Hoffman - Last Filed: 11/08/19 13:17> ED Disposition <Jean Montilla - Last Filed: 11/08/19 12:37> <Satnam Hoffman - Last Filed: 11/08/19 13:17> - Plan for ED Patient: Disposition: Home or Assisted Living Diagnosis: Acute low back pain, Mass of left kidney Instructions: ED Back Pain Acute or Chronic Prescriptions: cycloBENZAPRine HCl [Flexeril] 10 mg PO TID PRN #20 tab PRN Reason: Muscle Spasm Prescription Printed Naproxen [Naprosyn] 500 mg PO BID #14 tab Prescription Printed Oxycodone HCl/Acetaminophen [Percocet 5/325] 1 tab PO Q6H PRN PRN 3 Days #12 tab PRN Reason: Pain Prescription Printed Referrals: Ezequiel Lepe MD [Primary Care Provider] - 3-5 Days
[2019-11-08] MEDS: Ketorolac 30 MG/ML Syringe IM (12:32)
[2019-11-08] MEDS: oxyCODONE 5 MG Tablet PO (12:32)
[2019-11-08 12:59] VITALS: RESP 16
--- NOTE | 2019-11-08 13:00 | ED.RN ---
REVIEWED D/C INSTRUCTIONS, FOLLOW UP CARE, PRESCRIPTIONS, AND S/S THAT WOULD WARRANT A RETURN TO THE ED WITH PT. PT VERBALIZED AN UNDERSTANDING AND DENIES FURTHER QUESTIONS FOR THIS RN. PT SKIN P/W/D, RESP EVEN AND UNLABORED, PT A&O X 3, NO DISTRESS NOTED. PT AMBULATED OUT OF ED, GAIT STEADY.
== END 2019-11-08 13:01 | disposition home or self-care (01) ==
PROVIDERS: Emergency Provider Physician Assistant Medical; PCP Internal Medicine
DX: M54.5 Low back pain (principal); N28.89 Other specified disorders of kidney and ureter; K21.9 Gastro-esophageal reflux disease without esophagitis; F17.200 Nicotine dependence, unspecified, uncomplicated; Z79.899 Other long term (current) drug therapy; Z90.710 Acquired absence of both cervix and uterus
CPT/HCPCS: 96372; 99283

== ENCOUNTER → 2019-11-12 11:01 | Outpatient (CLI) | payer MEDICARE, MEDICAID, SELFPAY ==
[2019-11-11 14:50] VITALS: BMI 44.2
--- NOTE | 2019-11-12 11:05 | RAD_ITS ---
STUDY: X-RAY - LUMBAR SPINE REASON FOR EXAM: Female, 44 years old. Low back pain, no injury TECHNIQUE: 3 view(s) of the lumbar spine were obtained. COMPARISON: None FINDINGS: Normal lumbar lordosis. There is no substantial scoliosis. There is a normal alignment of the vertebrae. Mild anterior spondylosis at the L1-L2 and L2-L3 levels. Disc space narrowing at the L1-L2 and L2-L3 levels. Facet joint osteoarthritis. The soft tissue structures are unremarkable. RAD/Lumbar Spine 2 or 3 Views IMPRESSION: Degenerative changes of the spine, as detailed above. Electronically Signed: Michael Jacome, at 13:04 EDT , Service support ,
== END ==
PROVIDERS: PCP Internal Medicine; Referring Provider Internal Medicine; Visit Provider Internal Medicine
DX: M54.5 Low back pain (principal)
CPT/HCPCS: 72100

== ENCOUNTER 2019-11-18 08:51 | Observation (INO) | payer MEDICARE, MEDICAID, SELFPAY ==
[2019-11-11 14:50] VITALS: BMI 44.2
[2019-11-18 08:53] VITALS: BP 151/83; PULSE 88; RESP 17; TEMP 37.8; O2SAT 96; BMI 47.0
[2019-11-18 09:01] VITALS: BP 151/83; PULSE 88; RESP 17; TEMP 37.8; O2SAT 96
--- NOTE | 2019-11-18 09:23 | CT_ITS ---
STUDY: CT ABDOMEN AND PELVIS WITHOUT CONTRAST REASON FOR EXAM: Female, 44 years old. TUMOR REMOVED FROM LT KIDNEY YESTERDAY, LT FLANK AND ABD PAIN RADIATION DOSAGE (If Supplied By Facility): CTDIvol = ( 17.07 ) mGy, DLP = ( 1207.02 ) mGycm TECHNIQUE: Transaxial images were obtained from the dome of the diaphragm to the symphysis pubis without oral contrast, and without intravenous contrast. Sagittal and coronal images were reconstructed. Individualized dose optimization techniques were used for this CT. COMPARISON: Comparison is made with prior study dated October 28, 2019. FINDINGS: 1.5 cm noncalcified nodule in the peripheral aspect of the right lower lobe. The visualized portions of the heart are within normal limits. There is decreased attenuation of the liver consistent with steatosis. The patient is status post cholecystectomy. Normal spleen. Normal pancreas. There is a small, circumscribed, smooth, low attenuation left adrenal mass, consistent with an adrenal adenoma. This is unchanged. Normal right adrenal gland. Normal right kidney. Normal left kidney. Normal visualized stomach. Normal small intestine. There are scattered colonic diverticula consistent with diverticulosis. The appendix is visualized and appears normal. There is scattered atherosclerotic calcification of the abdominal aorta, without a demonstrated aneurysm. Normal inferior vena cava. There is borderline retroperitoneal lymphadenopathy with enlarged nodes no greater than 10mm in the short axis diameter. A minimal amount of air is seen along the anterior aspect of the bladder most likely secondary to the recent urological instrumentation. There is a 2.8 cm cyst in the right ovary. The patient is status post hysterectomy. Normal abdominal wall. Normal osseous structures. CT/Abdomen/Pelvis W IV Cont ONLY IMPRESSION: 2.8 cm cyst in the right ovary. The previously seen left ovarian cyst as resolved. The remainder of the examination is unchanged. Electronically Signed: Michael Jacome, at 10:44 EDT , Service support ,
--- NOTE | 2019-11-18 09:25 | ED.VIS.GEN ---
History of Present Illness Chief Complaint: Flank Pain Informant: Patient Onset: Today Context: Sudden Onset Timing: Continuous Narrative: Patient is a 44-year-old female presenting status post kidney biopsy and procedure yesterday. This was at [facility] with Dr. Enamorado. Patient is not exactly sure what procedure was done but she states it was done through cystoscopy. She states today she started having aching pain in her left lower quadrant as well as pain in her left lower back. She had an episode of diarrhea and urinary incontinence. Patient states she could not control her bowels or her urine. She also states that she is developed a fever of 100.5. She has nausea but no vomiting. She tried to go to [facility] ED, but didnt have a ride so she came here. Denies any cough or new shortness of breath. She states she is chronically short of breath because of her smoking history. She denies any black or blood in her stool. She denies any swelling of her legs. No other complaints at this time. Past Medical History - Allergies and Home Meds Allergies/Adverse Reactions: Allergies cefaclor [From Ceclor] Allergy (Verified 11/18/19 08:53) Hives ciprofloxacin Allergy (Verified 11/18/19 08:53) Hives erythromycin base [Erythromycin Base] Allergy (Verified 11/18/19 08:53) Upset Stomach moxifloxacin HCl [From Avelox] Allergy (Verified 11/18/19 08:53) Hives Penicillins Allergy (Verified 11/18/19 08:53) Upset Stomach Past Medical History: - - Renal mass,Asthma, Anxiety and depression, Surgical History: hysterectomy, - - Cystoscopy Smoking Status: Current every day smoker - Family History Maternal Family History: Family History (Last Reviewed 11/18/19 @ 13:[address] Robert Love MD) Mother CVA (cerebral vascular accident) Father Diabetes Heart disease Myocardial infarction Other Anxiety Arthritis Melanoma Respiratory disease Family History: Reports: Heart Disease Review of Systems General: Reports: Chills, Fever, Malaise. Denies: Sweats Eyes: Denies: Visual changes - bilaterally, Diplopia ENT: Denies: Rhinorrhea, Sore throat Cardiovascular: Denies: Chest pain, Palpitations Respiratory: Denies: Dyspnea, Cough, Dyspnea on exertion Gastrointestinal: Reports: Abdominal pain, Nausea, Diarrhea. Denies: Vomiting, Melena, Hematochezia Genitourinary: Reports: - - Urinary incontinence. Denies: Dysuria, Hematuria, Frequency Musculoskeletal: Reports: Back pain - Left flank area. Denies: Swelling, Extremity Pain Skin: Denies: Rash, Wounds Neurological: Denies: Headache, Weakness, Numbness Physical Exam Vital Signs/Narrative: Vital Signs Temp Pulse Resp BP Pulse Ox 11/18/19 09:01 100.1 F H 88 17 151/83 H 96 11/18/19 08:53 100.1 F H 88 17 151/83 H 96 Inital Vital Signs reviewed: Yes General: Well nourished, Well developed, Obese, No Acute Distress Head: Normocephalic, Atraumatic Eyes: Perrl, EOMI ENT: Moist mucous membranes, No rhinorrhea, TM's clear Neck: Supple, Nontender, No JVD Cardiovascular: Regular rate, Regular rhythm, No murmurs Respiratory: No distress, CTA bilaterally, Chest nontender Abdomen: Soft, Nondistended, Normal bowel sounds, Tender - Left lower quadrant. Negative for: Guarding, Rebound tenderness : - - Normal rectal tone Back: Nontender, Normal Inspection, CVA tenderness - Mild left. Negative for: Spinal tenderness Extremities: Nontender, No edema Skin: Normal color, No rash Neurological: Alert, Oriented x3, Cranial nerves II-XII grossly intact, Normal Strength, Normal Sensation Psychological: Normal affect, Normal Mood Diagnostic/Tx/Re-eval Clinical Impression(s) from Imaging Studies Abdomen/Pelvis CT 11/18/19 09:23 IMPRESSION: 2.8 cm cyst in the right ovary. The previously seen left ovarian cyst as resolved. The remainder of the examination is unchanged. Electronically Signed: Michael Jacome, at 10:44 EDT , Service support , Laboratory Data 11/18/19 11/18/19 11/18/19 09:30 09:30 09:30 WBC 20.3 H RBC 4.80 Hgb 14.1 Hct 43.4 MCV 90.4 MCH 29.4 MCHC 32.5 RDW Std Deviation 41.4 RDW Coeff of Saeid 12.6 Plt Count 345 MPV 9.9 Immature Gran % (Auto) 0.600 Neut % (Auto) 81.9 H Lymph % (Auto) 13.0 L [place] % (Auto) 4.3 Eos % (Auto) 0.1 Baso % (Auto) 0.1 Absolute Neuts (auto) 16.6 H Absolute Lymphs (auto) 2.64 Nucleated RBC % 0 Sodium 139 Potassium 4.1 Chloride 107 Carbon Dioxide 26.0 Anion Gap 6 BUN 11 Creatinine 0.68 Estim Creat Clear Calc 96.77 Est GFR (MDRD) Af Amer 119 Est GFR (MDRD) Non-Af 98 BUN/Creatinine Ratio 16.1 Glucose 104 Lactic Acid 1.8 Calcium 9.0 Total Bilirubin 0.20 AST 11 L ALT 22 Alkaline Phosphatase 105 Total Protein 7.5 Albumin 3.5 Globulin 4.0 Albumin/Globulin Ratio 0.9 Urine Color Urine Clarity Urine pH Ur Specific [place] Urine Protein Urine Glucose (UA) Urine Ketones Urine Occult Blood Urine Nitrite Urine Bilirubin Urine Urobilinogen Ur Leukocyte Esterase Urine RBC Urine WBC Ur Squamous Epith Cells Urine Bacteria Urine Mucus Urine Test 11/18/19 11/18/19 09:30 09:35 WBC RBC Hgb Hct MCV MCH MCHC RDW Std Deviation RDW Coeff of Saeid Plt Count MPV Immature Gran % (Auto) Neut % (Auto) Lymph % (Auto) [place] % (Auto) Eos % (Auto) Baso % (Auto) Absolute Neuts (auto) Absolute Lymphs (auto) Nucleated RBC % Sodium Potassium Chloride Carbon Dioxide Anion Gap BUN Creatinine Estim Creat Clear Calc Est GFR (MDRD) Af Amer Est GFR (MDRD) Non-Af BUN/Creatinine Ratio Glucose Lactic Acid Calcium Total Bilirubin AST ALT Alkaline Phosphatase Total Protein Albumin Globulin Albumin/Globulin Ratio Urine Color Yellow Urine Clarity Sl. Cloudy Urine pH 6.5 Ur Specific [place] 1.010 Urine Protein Negative Urine Glucose (UA) Normal Urine Ketones Negative Urine Occult Blood 250 H Urine Nitrite Negative Urine Bilirubin Negative Urine Urobilinogen Normal Ur Leukocyte Esterase 25 H Urine RBC 25-50 SEEN Urine WBC 0-5 SEEN Ur Squamous Epith Cells 0-5 SEEN Urine Bacteria 0 SEEN Urine Mucus 0 SEEN Urine Test Negative - Medical Decision Making Patient is 1 day postop from cystoscopy and lasering of a left renal pelvis mass. Presenting today with fever, left flank pain and left lower abdominal pain. Patient had episode of fecal and urinary incontinence earlier today which concerned her very much. On exam she does not have any signs of cauda equina syndrome. She has normal rectal tone and normal perineal sensation. She is normal strength of her lower extremities. She has a leukocytosis and fever but no obvious source of infection. Patient requires multiple doses of morphine for pain control the emergency room. I did discuss with the urology PA who recommends covering the patient for pyelonephritis but suspect this is more spasm associated with her procedure yesterday. Patient initially requested admission back to [facility] where her procedure was, but as they do not have beds available she is fine with staying here. I discussed with the hospitalist, Dr. Montero, except the patient. As patient has multiple antibiotic allergies I did call the pharmacy to discuss the best antibiotic option for pyelonephritis. We decided to give her meropenem. She is given first dose in the emergency room. Cultures are pending. CT of abdomen pelvis does not show any acute process including free air or signs of perinephric stranding. ED Disposition - Plan for ED Patient: Disposition: Acute [facility] Diagnosis: Left leg pain, Fever, Leukocytosis
[2019-11-18] MEDS: Morphine 4 MG/ML Syringe IV ×2 (09:28→11:00)
[2019-11-18] MEDS: 0.9% Normal Saline 1,000 ML 1000 ML IV (09:28)
[2019-11-18] MEDS: Ondansetron 4 MG/2 ML Vial IV ×2 (09:29→14:29)
[2019-11-18 09:34] LABS: Bacteria 0 SEEN /hpf (None Seen); Mucous, Urine 0 SEEN /hpf (<or=2+)
[2019-11-18 09:38] LABS: Color, Urine Yellow (Yellow); Glucose, Dipstick Normal (Normal); Ketone-Dipstick Negative (Negative); Leukocyte Esterase-Dipstick 25 /ul (Negative); Nitrite-Dipstick Negative (Negative); Occult Blood-Urine 250 /ul (Negative); Protein-Dipstick Negative (Negative); Urine Bilirubin Dipstick Negative (Negative); Urine Clarity Sl. Cloudy (Clear); Urine Urobilinogen Normal (Normal); Urine pH 6.5 (5.0 - 8.0)
[2019-11-18 09:40] LABS: Absolute Lymphocyte Count 2.64 X10^3/uL (0.83-4.51); Absolute Neutrophil Count 16.6 X10^3/uL (2.0-7.7); Basophil# 0.03 X10^3/uL; Basophil% 0.1 % (0-1); Eosinophil# 0.03 X10^3/uL; Eosinophils% 0.1 % (0-5); Hematocrit 43.4 % (37-47); Hemoglobin 14.1 g/dL (12.0-15.0); Lymphocyte # 2.64 X10^3/ul (4.0); Mean Corp Hgb Conc 32.5 g/dL (32-36); Mean Corpuscular Hgb 29.4 pg (27.0-32.0); Mean Corpuscular Volume 90.4 fL (81-99); Mean Platelet Vol. 9.9 fl (6.2-12.0); Monocyte# 0.87 X10^3/uL; Monocyte% 4.3 % (0-10); NRBC Flagged by Analyzer 0 % (0-5); Neutrophil # 16.62 X10^3/uL (2.7-7.7); Neutrophil % 81.9 % (47-70); Platelet Count 345 K/mm3 (150-450); RBC Distribution Width CV 12.6 % (11.6-14.6); RBC Distribution Width SD 41.4 fl (35.1-43.9); White Blood Count 20.3 K/mm3 (4.4-11.0)
[2019-11-18 09:45] LABS: Red Blood Cells-Urine 25-50 SEEN /hpf (0-5); Squamous Epithelial Cells - UA 0-5 SEEN /hpf (5-10); White Blood Cells 0-5 SEEN /hpf (0-5)
[2019-11-18 09:55] LABS: Internal QC Validated? YES +Cl - CLEAR BKGD; Pregnancy, Urine Negative Negative
[2019-11-18 09:56] LABS: ALB/GLOB Ratio 0.9 RATIO (0.9-2.4); AST(SGOT) 11 U/L (15-37); Alanine Aminotransfer ALT/SGPT 22 U/L (13-56); Albumin, Serum 3.5 g/dL (3.2-5.0); Alkaline Phosphatase 105 U/L (45-117); Anion Gap 6 (5-15); BUN 11 mg/dL (7-18); BUN/Creat Ratio 16.1 RATIO (10-20); Chloride 107 mmol/L (98-107); Creatinine, Serum 0.68 mg/dL (0.55-1.02); EST Glomerular Filtration Rate 98 mL/min (>60); Est Glom Filt Rate - Afr Amer 119 mL/min (>60); Estimated Creatinine Clearance 96.77 ml/min; Glucose 104 mg/dL (74-106); Potassium 4.1 mmol/L (3.5-5.1); Protein, Total 7.5 g/dL (6.4-8.2); Sodium Level 139 mmol/L (136-145)
[2019-11-18 09:59] LABS: Lactic Acid 1.8 mmol/L (0.4-1.9)
[2019-11-18 11:04] VITALS: BP 128/75; PULSE 69; RESP 15; O2SAT 95
--- NOTE | 2019-11-18 11:50 | RAD_ITS ---
STUDY: X-RAY CHEST REASON FOR EXAM: Female, 44 years old. FEVER, LEFT FLANK PAIN AND ABD PAIN. KIDNEY SURGERY YESTERDAY TECHNIQUE: Single AP portable view of the chest. COMPARISON: None. FINDINGS: 1.7 cm nodule in the lateral aspect of the right lower lobe. There is no demonstrated pleural abnormality. Normal size heart. Normal mediastinum and jalyn. Normal visualized pulmonary arteries. Normal visualized aortic arch and descending thoracic aorta. There are degenerative changes of the visualized thoracic spine. Normal visualized ribs, clavicles, and shoulders. There is no demonstrated abnormality of the visualized soft tissue structures of the upper abdomen. RAD/Chest 1 View (Portable) IMPRESSION: 1.7 cm nodule in the peripheral lateral aspect of the right lower lobe. No pulmonary infiltrate is seen. Electronically Signed: Michael Jacome, at 12:53 EDT , Service support ,
--- NOTE | 2019-11-18 13:07 | HP.PCM_ITS ---
Problem List (1) COPD (chronic obstructive pulmonary disease) Status: Chronic (2) Tobacco abuse Status: Chronic (3) Kidney calculi Status: Chronic (4) Anxiety and depression Status: Chronic (5) GERD (gastroesophageal reflux disease) Status: Chronic History of Present Illness Date of Admission: 11/18/19 Chief Complaint: Left flank pain, fever. The patient is a 44 year old F with past medical history as mentioned above presented to the emergency room because of left flank pain and fever. Patient underwent cystoscopy yesterday at [facility] for a left kidney mass, status post removal of the kidney mass and biopsy. This morning, she woke up with left flank pain, sharp pain, 8 out of 10 in severity, extends down to the left groin which becomes as cramps on the left groin, associated with low-grade fever of 100.5 Fahrenheit at home and without aggravating or relieving factors. She mentioned that she has been urinating after procedure without any symptoms. She denied dysuria, frequency or hematuria. In the emergency department, patient had a spike of low-grade fever of 100.1 Fahrenheit, blood pressure and heart rate are stable, pulse ox is maintained on room air. Routine blood work was remarkable for leukocytosis with neutrophilia, otherwise normal. LFT and lipase were unremarkable. Urinalysis revealed cloudy urine, negative for nitrite, there was only 25 leukocyte esterase, 0-5 WBCs and no bacteria seen. Urine test was negative. Chest x-ray revealed small right basilar lung nodule. CT scan abdomen and pelvis with IV contrast revealed 2.8 cm right ovarian cyst, normal right and left kidney, no other acute findings. She is being admitted for intractable left flank pain with postprocedure leukocytosis and low-grade fever concerning for probable acute pyelonephritis. Past Medical History Past Medical History (Chronic Problems): Chronic Problems (Last Updated 11/18/19 @ 13:[address] Robert Love MD) COPD (chronic obstructive pulmonary disease) (Chronic) Asthma (Chronic) Tobacco abuse (Chronic) Obesity (Chronic) Chronic neutrophilia (Chronic) Kidney calculi (Chronic) Anxiety and depression (Chronic) GERD (gastroesophageal reflux disease) (Chronic) Medical History: Medical History (Last Updated 11/18/19 @ 13:[address] Robert Love MD) Anxiety and depression (Chronic) F41.9, F32.9 GERD (gastroesophageal reflux disease) (Chronic) K21.9 Asthma J45.909 Cancer of left kidney C64.2 History of mononucleosis Z86.19 COPD (chronic obstructive pulmonary disease) J44.9 H/O emotional problems (Inactive) Z86.59 Intestinal ulcer (Inactive) K63.3 Allergies cefaclor [From Ceclor] Allergy (Verified 11/18/19 08:53) Hives ciprofloxacin Allergy (Verified 11/18/19 08:53) Hives erythromycin base [Erythromycin Base] Allergy (Verified 11/18/19 08:53) Upset Stomach moxifloxacin HCl [From Avelox] Allergy (Verified 11/18/19 08:53) Hives Penicillins Allergy (Verified 11/18/19 08:53) Upset Stomach Home Medications: Ambulatory Orders Medication Instructions Recorded Albuterol Inhaler [Ventolin Hfa] 2 puff INHALATION Q4H PRN PRN 09/02/13 Aripiprazole 2 mg PO DAILY 06/09/19 Vilazodone Hydrochloride [Viibryd] 20 mg PO DAILY 06/09/19 omeprazole 40 mg capsule,delayed 40 mg PO DAILY #30 cap 10/08/19 release Ondansetron [Zofran] 8 mg PO PRN PRN 10/13/19 baclofen 10 mg tablet 10 mg PO BID #60 tab 11/11/19 meloxicam 15 mg tablet 15 mg PO DAILY #30 tab 11/11/19 oxycodone-acetaminophen 5 mg-325 1 tab PO Q6H PRN PRN 11/11/19 mg tablet Surgical History: Surgical History (Last Updated 11/18/19 @ 13:[address] 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 Robert Love MD) Mother CVA (cerebral vascular accident) Father Diabetes Heart disease Myocardial infarction Other Anxiety Arthritis Melanoma Respiratory disease History Items: Heart Disease Review of Systems Constitutional: Reports: Fever. Denies: Anorexia, Chills, Weakness Eyes: Denies: Blurred vision, Double vision, Drainage, Redness HEENT: Denies: Difficulty Hearing, Ear Pain, Eye Pain, Nasal Congestion, Sore Throat Cardiovascular: Denies: Chest Pain, Chest Pressure, Chest Tightness, Heaviness, Light Headedness, Palpitations, Syncope Respiratory: Reports: Cough. Denies: Pleuritic Pain, Shortness of Breath, Sputum production, Wheezing Gastrointestinal: Reports: Abdominal Pain. Denies: Constipation, Diarrhea, Nausea, Vomiting Genitourinary: Denies: Dysuria, Frequency, Hematuria Musculoskeletal: Denies: Arm Pain, Back Pain, Foot Pain Skin: Denies: Dryness, Rash Neurological: Denies: Balance problems, Double vision, Change in Speech, Slurred speech, Confusion, Focal weakness, Incoordination, Numbness Psychiatric: Reports: Anxiety, Depression Endocrine: Denies: Change in Body Habitus, Polydipsia, Polyuria VTE Information - Inpt Only VTE Present on Admission: No VTE Mechan Device Prophylaxis: None VTE Pharm Prophylaxis ordered?: No - Physical Exam Vitals/I&O's: Vital Signs Temp Pulse Resp BP Pulse Ox 100.1 F H 69 15 128/75 H 95 11/18/19 09:01 11/18/19 11:04 11/18/19 11:04 11/18/19 11:04 11/18/19 11:04 Oxygen Delivery Method Room Air Weight: 291 lb Body Mass Index (BMI) 47.0 Finger Stick Blood Glucose 96 Intake and Output for Last 24 Hours 11/16/19 11/17/19 11/18/19 23:59 23:59 23:59 Intake Total 1000 / 1000 Balance 1000 / 1000 General: Alert, Oriented x3, Cooperative, No apparent distress HEENT: Atraumatic, PERRLA, EOMI, Normocephalic Oral: Moist Mucosa, No Gingival or Mucosal Lesions/ Ulcerations Neck: Supple, No JVD, Negative Carotid Bruits, Trachea Midline, Thyroid Normal Size and Texture Lungs: No wheeze, No rales, Diminished, Rhonchi, - - Decreased breath sounds bilateral, rhonchi. Cardiovascular: Regular rate, Regular Rhythm, Normal S1, Normal S2, PMI Normal Abdomen: Bowel Sounds Present, Soft, Non Tender, Non-Distended, No Hepato- splenomegaly, Obese, - - Mild left CVA tenderness. Extremities: No clubbing, No cyanosis, No edema Skin: No rashes, No breakdown Lymphatic: No Cervical, Supraclavicular, or Inguinal Adenopathy Neurological: Cranial nerves II-XII grossly intact, Motor Exam 5/5 strength throughout Psych/Mental Status: Normal Affect, Appropriate, Alert and oriented to time, place, person, mood and affect Laboratory Results 11/18/19 09:30: WBC 20.3 H, RBC 4.80, Hgb 14.1, Hct 43.4, MCV 90.4, MCH 29.4, MCHC 32.5, RDW Std Deviation 41.4, RDW Coeff of Saeid 12.6, Plt Count 345, MPV 9.9, Immature Gran % (Auto) 0.600, Neut % (Auto) 81.9 H, Lymph % (Auto) 13.0 L, [place] % (Auto) 4.3, Eos % (Auto) 0.1, Baso % (Auto) 0.1, Absolute Neuts (auto) 16.6 H, Absolute Lymphs (auto) 2.64, Nucleated RBC % 0 11/18/19 09:30: Sodium 139, Potassium 4.1, Chloride 107, Carbon Dioxide 26.0, Anion Gap 6, BUN 11, Creatinine 0.68, Estim Creat Clear Calc 96.77, Est GFR (MDRD) Af Amer 119, Est GFR (MDRD) Non-Af 98, BUN/Creatinine Ratio 16.1, Glucose 104, Calcium 9.0, Total Bilirubin 0.20, AST 11 L, ALT 22, Alkaline Phosphatase 105, Total Protein 7.5, Albumin 3.5, Globulin 4.0, Albumin/Globulin Ratio 0.9 11/18/19 09:30: Lactic Acid 1.8 11/18/19 09:30: Urine Color Yellow, Urine Clarity Sl. Cloudy, Urine pH 6.5, Ur Specific [place] 1.010, Urine Protein Negative, Urine Glucose (UA) Normal, Urine Ketones Negative, Urine Occult Blood 250 H, Urine Nitrite Negative, Urine Bilirubin Negative, Urine Urobilinogen Normal, Ur Leukocyte Esterase 25 H, Urine RBC 25-50 SEEN, Urine WBC 0-5 SEEN, Ur Squamous Epith Cells 0-5 SEEN, Urine Bacteria 0 SEEN, Urine Mucus 0 SEEN 11/18/19 09:35: Urine Test Negative Clinical Impression(s) from Imaging Studies Abdomen/Pelvis CT 11/18/19 09:23 IMPRESSION: 2.8 cm cyst in the right ovary. The previously seen left ovarian cyst as resolved. The remainder of the examination is unchanged. Electronically Signed: Michael Jacome, at 10:44 EDT , Service support , Chest X-Ray 11/18/19 11:50 IMPRESSION: 1.7 cm nodule in the peripheral lateral aspect of the right lower lobe. No pulmonary infiltrate is seen. Electronically Signed: Michael Jacome, at 12:53 EDT , Service support , Current Medications Meropenem 1 gm/ Sodium (Chloride) 120 mls @ 33 mls/hr IV X1 ONE Stop: 11/18/19 15:29 Last Admin: 11/18/19 12:22 Dose: 33 mls/hr Documented by: Assessment/Plan This is a 44 years old female patient presented to the emergency room because of left flank pain and low-grade fever after she had cystoscopy yesterday and she was found to have significant Kas[place] ptosis and she is being admitted for concerning developing acute pyelonephritis. #1 left flank pain/leukocytosis/low-grade fever: In context of cystoscopy that was done yesterday at [facility] for left kidney mass. Although urinalysis showed no evidence of secondary infection, no pyuria but developing acute pyonephritis is a possibility. No evidence of sepsis or severe sepsis. Plan: Admit to [facility] floor, IV fluids, IV morphine PRN for pain, IV antiemetics, urine culture, blood culture, start empiric IV meropenem, repeat CBC and BMP tomorrow morning. #2 left kidney mass: Status post cystoscopy that was done yesterday at [facility]. Apparently, she had cystoscopy at our hospital here by Dr. Mendez for the same problem and upon review of his chart, histopathology of that left kidney mass was negative for malignancy. According to the patient, there are still testing to be done. Recommend follow-up with urology as outpatient. #3 COPD: Clinically stable, compensated. Plan: Albuterol PRN, oxygen by nasal cannula if needed. #4 GERD: Continue omeprazole. #5 right lower lung nodule: This is chronic, she had CT scan chest back on August,, revealed 1.5 cm right lower lobe nodule which was stable. Recommend follow-up with her doctor as outpatient. #6 tobacco abuse: NicoDerm patch if desired. #7 DVT prophylaxis: Low risk patient, no prophylaxis indicated. This note was generated with [employer] dictation software. It may contain incorrect words, spelling, and punctuation that were not noted in checking the note before signing. OBSV E&M: 38822 Initial observation care L3
[2019-11-18 13:14] VITALS: BP 129/75; PULSE 79; RESP 16; TEMP 36.5; O2SAT 96; O2SAT 98
[2019-11-18 13:40] VITALS: BP 111/67; PULSE 75; RESP 18; TEMP 36.5; O2SAT 99
[2019-11-18 13:58] VITALS: BMI 47.0
[2019-11-18] MEDS: 0.9% Normal Saline 1,000 ML 100 ML IV (14:28)
[2019-11-18] MEDS: 0.9% Saline Lock 10 ML Syringe IV ×2 (14:28→17:59)
[2019-11-18] MEDS: Morphine 2 MG/ML Syringe IV ×3 (14:29→21:18)
[2019-11-18 19:36] VITALS: BP 115/73; PULSE 79; RESP 18; TEMP 36.7; O2SAT 97
[2019-11-18] MEDS: Baclofen 10 MG Tablet PO (21:21)
[2019-11-19] MEDS: Morphine 2 MG/ML Syringe IV ×5 (01:34→20:24)
[2019-11-19] MEDS: 0.9% Normal Saline 1,000 ML 100 ML IV (01:41)
[2019-11-19 02:03] VITALS: BP 138/70; PULSE 61; RESP 17; TEMP 37; O2SAT 96
[2019-11-19] MEDS: oxyCODONE 5 MG Tablet PO ×3 (05:19→18:51)
[2019-11-19 06:38] LABS: Absolute Lymphocyte Count 5.18 X10^3/uL (0.83-4.51); Absolute Neutrophil Count 7.3 X10^3/uL (2.0-7.7); Basophil# 0.04 X10^3/uL; Basophil% 0.3 % (0-1); Eosinophil# 0.17 X10^3/uL; Eosinophils% 1.3 % (0-5); Hematocrit 39.4 % (37-47); Hemoglobin 12.4 g/dL (12.0-15.0); Lymphocyte # 5.18 X10^3/ul (4.0); Lymphocyte % 38.4 % (19-41); Mean Corp Hgb Conc 31.5 g/dL (32-36); Mean Corpuscular Hgb 29.6 pg (27.0-32.0); Monocyte% 5.2 % (0-10); NRBC Flagged by Analyzer 0 % (0-5); Neutrophil # 7.31 X10^3/uL (2.7-7.7); Neutrophil % 54.2 % (47-70); POSITIVE DIFFERENTIAL YES; POSITIVE MORPHOLOGY YES; Platelet Count 283 K/mm3 (150-450); RBC Distribution Width CV 13.1 % (11.6-14.6); RBC Distribution Width SD 44.6 fl (35.1-43.9); Red Blood Count 4.19 M/mm3 (4.2-5.4); White Blood Count 13.5 K/mm3 (4.4-11.0)
[2019-11-19 06:48] LABS: Differential Indicated SCAN CRITERIA MET
[2019-11-19 07:03] LABS: Differential Comment SCANNED; Reactive Lymphocyte 1+
[2019-11-19 07:08] LABS: Anion Gap 5 (5-15); BUN 15 mg/dL (7-18); BUN/Creat Ratio 21.5 RATIO (10-20); Calcium,Total 7.9 mg/dL (8.5-10.1); Chloride 106 mmol/L (98-107); EST Glomerular Filtration Rate 96 mL/min (>60); Est Glom Filt Rate - Afr Amer 116 mL/min (>60); Estimated Creatinine Clearance 94.01 ml/min; Glucose 96 mg/dL (74-106); Potassium 4.1 mmol/L (3.5-5.1); Sodium Level 136 mmol/L (136-145)
[2019-11-19 08:17] VITALS: BP 141/81; PULSE 72; RESP 16; TEMP 36.9; O2SAT 96
--- NOTE | 2019-11-19 08:37 | PCM.PROGNOTE ---
Subjective: Chief complaint: Follow-up after admission for postprocedure left flank pain/fever/leukocytosis concerning for developing acute pyelonephritis. Patient seen and examined. No acute events overnight. Left flank pain is getting better with the IV pain medications. She complained of her incontinence. Denies dysuria or hematuria. She had no more fever. Her vital signs are stable. - Physical Exam Vitals/I&O's: Vital Signs Temp Pulse Resp BP Pulse Ox 98.4 F 72 16 141/81 H 96 11/19/19 08:17 11/19/19 08:17 11/19/19 08:17 11/19/19 08:17 11/19/19 08:17 Oxygen Delivery Method Room Air Weight: 291 lb Body Mass Index (BMI) 47.0 Finger Stick Blood Glucose 96 Intake and Output for Last 24 Hours 11/17/19 11/18/19 11/19/19 23:59 23:59 23:59 Intake Total 2203.33 / 2203.33 1496.66 / 1496.66 Balance 2203.33 / 2203.33 1496.66 / 1496.66 General: Alert, Oriented x3, Cooperative, No apparent distress HEENT: Atraumatic, PERRLA, EOMI, Normocephalic Oral: Moist Mucosa, No Gingival or Mucosal Lesions/ Ulcerations Neck: Supple, No JVD, Negative Carotid Bruits, Trachea Midline, Thyroid Normal Size and Texture Lungs: Clear to auscultation, Normal air movement, No rhonchi, No wheeze, No rales, Diminished Cardiovascular: Regular rate, Regular Rhythm, Normal S1, Normal S2, No murmurs, PMI Normal Abdomen: Bowel Sounds Present, Soft, Non Tender, Non-Distended, No Hepato-splenomegaly, Obese Extremities: No clubbing, No cyanosis, No edema Skin: No rashes, No breakdown Lymphatic: No Cervical, Supraclavicular, or Inguinal Adenopathy Neurological: Cranial nerves II-XII grossly intact, Neuro grossly intact Psych/Mental Status: Normal Affect, Appropriate, Alert and oriented to time, place, person, mood and affect Laboratory Results 11/18/19 09:30: WBC 20.3 H, RBC 4.80, Hgb 14.1, Hct 43.4, MCV 90.4, MCH 29.4, MCHC 32.5, RDW Std Deviation 41.4, RDW Coeff of Saeid 12.6, Plt Count 345, MPV 9.9, Immature Gran % (Auto) 0.600, Neut % (Auto) 81.9 H, Lymph % (Auto) 13.0 L, [place] % (Auto) 4.3, Eos % (Auto) 0.1, Baso % (Auto) 0.1, Absolute Neuts (auto) 16.6 H, Absolute Lymphs (auto) 2.64, Nucleated RBC % 0 11/18/19 09:30: Sodium 139, Potassium 4.1, Chloride 107, Carbon Dioxide 26.0, Anion Gap 6, BUN 11, Creatinine 0.68, Estim Creat Clear Calc 96.77, Est GFR (MDRD) Af Amer 119, Est GFR (MDRD) Non-Af 98, BUN/Creatinine Ratio 16.1, Glucose 104, Calcium 9.0, Total Bilirubin 0.20, AST 11 L, ALT 22, Alkaline Phosphatase 105, Total Protein 7.5, Albumin 3.5, Globulin 4.0, Albumin/Globulin Ratio 0.9 11/18/19 09:30: Lactic Acid 1.8 11/18/19 09:30: Urine Color Yellow, Urine Clarity Sl. Cloudy, Urine pH 6.5, Ur Specific [place] 1.010, Urine Protein Negative, Urine Glucose (UA) Normal, Urine Ketones Negative, Urine Occult Blood 250 H, Urine Nitrite Negative, Urine Bilirubin Negative, Urine Urobilinogen Normal, Ur Leukocyte Esterase 25 H, Urine RBC 25-50 SEEN, Urine WBC 0-5 SEEN, Ur Squamous Epith Cells 0-5 SEEN, Urine Bacteria 0 SEEN, Urine Mucus 0 SEEN 11/18/19 09:35: Urine Test Negative 11/19/19 06:26: WBC 13.5 H, RBC 4.19 L, Hgb 12.4, Hct 39.4, MCV 94.0, MCH 29.6, MCHC 31.5 L, RDW Std Deviation 44.6 H, RDW Coeff of Saeid 13.1, Plt Count 283, MPV 10.0, Immature Gran % (Auto) 0.600, Neut % (Auto) 54.2, Lymph % (Auto) 38.4, [place] % (Auto) 5.2, Eos % (Auto) 1.3, Baso % (Auto) 0.3, Absolute Neuts (auto) 7.3, Absolute Lymphs (auto) 5.18 H, Nucleated RBC % 0, Differential Comment SCANNED, Reactive Lymphocytes 1+ 11/19/19 06:26: Sodium 136, Potassium 4.1, Chloride 106, Carbon Dioxide 25.0, Anion Gap 5, BUN 15, Creatinine 0.70, Estim Creat Clear Calc 94.01, Est GFR (MDRD) Af Amer 116, Est GFR (MDRD) Non-Af 96, BUN/Creatinine Ratio 21.5 H, Glucose 96, Calcium 7.9 L Current Medications Acetaminophen (Tylenol) 650 mg PO Q6H PRN PRN PRN Reason: Pain Score 1-10/Temp > 100.7 F Albuterol Sulfate (Ventolin Aerosols) 2.5 mg INHALATION Q4H PRN PRN PRN Reason: Shortness of breath, wheezing Aripiprazole (Abilify) 2 mg PO DAILY PENDING SALE TO [facility] Baclofen (Lioresal) 10 mg PO BID PENDING SALE TO [facility] Last Admin: 11/18/19 21:21 Dose: 10 mg Documented by: Meropenem 1 gm/ Sodium (Chloride) 120 mls @ 33 mls/hr IV Q8 SELENE Last Admin: 11/19/19 05:19 Dose: 33 mls/hr Documented by: Morphine Sulfate () 2 mg IV Q3H PRN PRN PRN Reason: Pain Score 6-10/10 Last Admin: 11/19/19 08:23 Dose: 2 mg Documented by: Ondansetron HCl (Zofran) 4 mg IV Q8H PRN PRN PRN Reason: NAUSEA/VOMITING Last Admin: 11/18/19 14:29 Dose: 4 mg Documented by: Oxycodone HCl (Oxyir) 5 mg PO Q6H PRN PRN PRN Reason: Pain Score 6-10/10 Last Admin: 11/19/19 05:19 Dose: 5 mg Documented by: Pantoprazole Sodium (Protonix) 40 mg PO DAILY PENDING SALE TO [facility] Senna/Docusate Sodium (Senokot-S, Sharmaine-Colace) 2 tablet PO BID PRN PRN PRN Reason: Constipation Sodium Chloride () 10 - 40 ml IV UD PRN PRN Reason: SALINE FLUSH Last Admin: 11/18/19 17:59 Dose: 10 ml Documented by: Vilazodone HCl (Viibryd) 20 mg PO DAILY SELENE Zolpidem Tartrate (Ambien (Generic)) 5 mg PO QHS PRN PRN PRN Reason: INSOMNIA Medical Necessity - Tobacco Use Smoking Status: Current every day smoker Tobacco Use: Cigarettes Assessment/Plan This is a 44 years old female patient presented to the emergency room because of left flank pain and low-grade fever after she had cystoscopy yesterday and she was found to have significant [place] ptosis and she is being admitted for concerning developing acute pyelonephritis. #1 left flank pain/leukocytosis/low-grade fever: Concerning for probable developing acute pyelonephritis. Patient had cystoscopy that was done 1 day before admission at [facility] for left kidney mass. She is on IV meropenem. She has been afebrile, WBC is trending down. Symptoms started to improve. Blood and urine cultures are pending. Plan to continue same treatment, awaiting culture results, continue IV meropenem, repeat CBC tomorrow morning, anticipate discharge home tomorrow. #2 left kidney mass: Status post cystoscopy that was done yesterday at [facility]. Apparently, she had cystoscopy at our hospital here by Dr. Mendez for the same problem and upon review of his chart, histopathology of that left kidney mass was negative for malignancy. According to the patient, there are still testing to be done. Recommend follow-up with urology as outpatient. #3 COPD: Clinically stable, pulse ox is maintained on room air. Continue albuterol PRN, oxygen by nasal cannula if needed. #4 GERD: Continue omeprazole. #5 right lower lung nodule: This is chronic, she had CT scan chest back on August,, revealed 1.5 cm right lower lobe nodule which was stable. Recommend follow-up with her doctor as outpatient. #6 tobacco abuse: NicoDerm patch if desired. #7 depression/anxiety: Continue Abilify and Viibryd. #8 DVT prophylaxis: Low risk patient, no prophylaxis indicated. This note was generated with Deedation software. It may contain incorrect words, spelling, and punctuation that were not noted in checking the note before signing. OBSV E&M: 14301 Subsequent observation care L2
[2019-11-19] MEDS: Pantoprazole Sodium 40 MG Tablet PO (10:16)
[2019-11-19] MEDS: VILAZODONE HYDROCHLORIDE 10 MG TABLET 20 MG PO (10:16)
[2019-11-19] MEDS: ARIPiprazole 2 MG Tablet PO (10:16)
--- NOTE | 2019-11-19 12:10 | CASEMGMT ---
RN MINDI NOTE: To room to discuss ALCOCER form. Introduced self and role of RN MINDI. Pt sitting up in bed. Awake/alert/oriented. ALCOCER form reviewed w/pt. She denies having any questions. Form signed by pt, copy made and placed on chart, and original given to pt. Pt denies having concerns w/going home at discharge. Pt made aware to ask for CM if any questions do arise about ALCOCER form or any concerns/questions/needs arise re: discharge. Mone ARAIZAN RN CM
[2019-11-19] MEDS: Acetaminophen 325 MG Tablet 650 MG PO (13:48)
[2019-11-19 13:53] VITALS: BP 118/68; PULSE 67; RESP 16; TEMP 36.6; O2SAT 97
[2019-11-19] MEDS: Oxybutynin 5 MG Tablet PO ×2 (15:18→23:05)
[2019-11-19] MEDS: 0.9% Saline Lock 10 ML Syringe IV (15:19)
[2019-11-19 17:51] VITALS: BP 108/74; PULSE 66; RESP 18; TEMP 36.5; O2SAT 97
[2019-11-19 20:34] VITALS: BP 119/75; PULSE 67; RESP 16; TEMP 36.7; O2SAT 96
[2019-11-19 20:39] VITALS: RESP 16
[2019-11-19] MEDS: Baclofen 10 MG Tablet PO (23:05)
[2019-11-20] MEDS: oxyCODONE 5 MG Tablet PO (01:16)
[2019-11-20 01:20] VITALS: BP 128/83; PULSE 61; RESP 18; TEMP 36.5; O2SAT 99
[2019-11-20] MEDS: Morphine 2 MG/ML Syringe IV (05:05)
[2019-11-20] MEDS: Oxybutynin 5 MG Tablet PO (05:07)
[2019-11-20 05:12] VITALS: BP 133/89; PULSE 71; RESP 20; TEMP 36.4; O2SAT 100
[2019-11-20 07:10] VITALS: O2SAT 94
--- NOTE | 2019-11-20 08:37 | PCM.DC ---
- Discharge Diagnoses Current Active Problems: Current Active and Chronic Problems (Last Updated 11/18/19 @ 13:[address] Robert Love MD) COPD (chronic obstructive pulmonary disease) (Chronic) You will use the following diet at home:: Regular Your food should be the consistency of: Regular Discharge Activity: Return to Normal Activity, May not drive while taking narcotic pain medications. Weight Bearing Status: Full weight bearing Call your doctor if you observe: Fever of 101 or Higher, Shortness of breath, Dizziness, Fainting spells, Chest pain, Increased palpitations (irregular heartbeat), Uncontrolled pain Additional Instructions: Use Tylenol PRN for pain and if that does not work, you can use OxyIR. Try to avoid using too many of OxyIR. Allergies/Adverse Reactions: Allergies cefaclor [From Ceclor] Allergy (Verified 11/18/19 08:53) Hives ciprofloxacin Allergy (Verified 11/18/19 08:53) Hives erythromycin base [Erythromycin Base] Allergy (Verified 11/18/19 08:53) Upset Stomach moxifloxacin HCl [From Avelox] Allergy (Verified 11/18/19 08:53) Hives Penicillins Allergy (Verified 11/18/19 08:53) Upset Stomach Medications to take at Discharge Albuterol Inhaler [Ventolin Hfa] 2 puff INHALATION Q4H PRN PRN 09/02/13 Aripiprazole 2 mg PO DAILY 06/09/19 Vilazodone Hydrochloride [Viibryd] 20 mg PO DAILY 06/09/19 omeprazole 40 mg capsule,delayed release 40 mg PO DAILY #30 cap 10/08/19 Ondansetron [Zofran] 8 mg PO PRN PRN 10/13/19 baclofen 10 mg tablet 10 mg PO BID #60 tab 11/11/19 meloxicam 15 mg tablet 15 mg PO DAILY #30 tab 11/11/19 oxycodone-acetaminophen 5 mg-325 mg tablet 1 tab PO Q6H PRN PRN 11/11/19 Oxybutynin [Ditropan] 5 mg PO TID #90 tab 11/20/19 Oxycodone [Oxyir] 5 mg PO Q8H PRN PRN 3 Days #10 tablet 11/20/19 The following prescriptions were given: Oxybutynin [Ditropan] 5 mg PO TID #90 tab Transmission Status: Pending to [id number] Oxycodone [Oxyir] 5 mg PO Q8H PRN PRN 3 Days #10 tablet PRN Reason: Pain Score 6-10/10 Transmission Status: Sent to [facility] Primary Care Physician: Ezequiel Lepe MD [Primary Care Provider] - Please follow up with your Primary Care Physician in: 1 week. Test Results: Test results from this visit will be discussed in further detail at your follow-up appointment, if applicable. Please Follow Up With: Luisa Mendez MD When: as scheduled.
[2019-11-20 09:05] VITALS: BP 130/86; PULSE 73; RESP 16; TEMP 36.9; O2SAT 98
--- NOTE | 2019-11-20 10:01 | PCM.DC.SUM ---
Discharge Date and Diagnosis Date of Admission: 11/18/19 Date of Discharge: 11/20/19 - Primary Discharge Diagnosis Acute Problems: #1 postprocedural (cystoscopy) low-grade fever, leukocytosis and flank pain. #2 urinary bladder spasm. - Secondary Discharge Diagnosis Chronic Problems: Chronic Problems (Last Updated 11/18/19 @ 13:[address] Robert Love MD) COPD (chronic obstructive pulmonary disease) (Chronic) Asthma (Chronic) Tobacco abuse (Chronic) Obesity (Chronic) Chronic neutrophilia (Chronic) Kidney calculi (Chronic) Anxiety and depression (Chronic) GERD (gastroesophageal reflux disease) (Chronic) Hospital Course and Treatment Imaging Results: Clinical Impression(s) from Imaging Studies Abdomen/Pelvis CT 11/18/19 09:23 IMPRESSION: 2.8 cm cyst in the right ovary. The previously seen left ovarian cyst as resolved. The remainder of the examination is unchanged. Electronically Signed: Michael Jacome, at 10:44 EDT , Service support , Chest X-Ray 11/18/19 11:50 IMPRESSION: 1.7 cm nodule in the peripheral lateral aspect of the right lower lobe. No pulmonary infiltrate is seen. Electronically Signed: Michael Jacome, at 12:53 EDT , Service support , Operations: None Procedures: None Summary of Care Provided: Patient seen and examined on the day of discharge and appeared to be stable to be discharged home. She has no more left flank pain. Has been afebrile. She has been urinating, no complaints. Her vital signs are stable. The patient is a 44 year old F presented to the emergency room because of left flank pain and low-grade fever after she had cystoscopy that was done 1 day before the admission at [facility] for left kidney mass status post removal. Patient was found to have significant leukocytosis and low-grade fever and because of this, she was admitted for empiric IV antibiotics. Apart from leukocytosis, routine blood work was unremarkable. Lactic acid was normal. LFT was unremarkable. Urinalysis revealed cloudy urine, negative for nitrite, there was only 0-5 WBCs and no bacteria seen. Serum was negative. CT scan abdomen and pelvis with IV contrast revealed a right ovarian cyst, no acute pathology. She was treated with IV fluids, IV meropenem and IV pain medications as well as IV antiemetics. She remained afebrile for more than 24 hours. Urine culture showed no growth. Blood culture showed no growth in 48 hours. Leukocytosis improved on repeat CBC. Patient symptoms improved. Chest x-ray revealed right lower lung nodule which is chronic. She had CTA chest on August, that revealed right lower lobe stable nodule. She was discharged home in a stable condition, no antibiotic given upon discharge given that her cultures are negative, discharged on her previous home medications, discharged on oxybutynin for bladder spasm, given prescription for OxyIR PRN for pain for 3 days, recommended follow-up with PCP in 1 week and follow-up with urology as scheduled. Recommended to follow-up with her PCP regarding this right lower lung nodule which has been there before. - Physical Exam Vitals/I&O's: Vital Signs Temp Pulse Resp BP Pulse Ox 98.5 F 73 16 130/86 H 98 11/20/19 09:05 11/20/19 09:05 11/20/19 09:05 11/20/19 09:05 11/20/19 09:05 Oxygen Delivery Method Room Air Weight: 290 lb 15.986 oz Body Mass Index (BMI) 47.0 Finger Stick Blood Glucose 96 Intake and Output for Last 24 Hours 11/18/19 11/19/19 11/20/19 23:59 23:59 23:59 Intake Total 2203.33 / 2203.33 3036.66 / 3486.66 1190 / 1190 Output Total 900 / 900 Balance 2203.33 / 2203.33 3036.66 / 3186.66 290 / 290 General: Alert, Oriented x3, Cooperative, No apparent distress HEENT: Atraumatic, PERRLA, EOMI, Normocephalic Oral: Moist Mucosa, No Gingival or Mucosal Lesions/ Ulcerations Neck: Supple, No JVD, Negative Carotid Bruits, Trachea Midline, Thyroid Normal Size and Texture Lungs: Clear to auscultation, Normal air movement, No rhonchi, No wheeze, No rales, Diminished Cardiovascular: Regular rate, Regular Rhythm, Normal S1, Normal S2, PMI Normal Abdomen: Bowel Sounds Present, Soft, Non Tender, Non-Distended, No Hepato-splenomegaly, Obese Extremities: No clubbing, No cyanosis, No edema Skin: No rashes, No breakdown Lymphatic: No Cervical, Supraclavicular, or Inguinal Adenopathy Neurological: Cranial nerves II-XII grossly intact, Neuro grossly intact Psych/Mental Status: Normal Affect, Appropriate Microbiology Past 72 Hours 11/18/19 09:40 Blood Culture (Wb) - Left Forearm Blood Culture - Preliminary No growth in 48 hours. 11/18/19 09:30 Blood Culture (Wb) - Left Hand Blood Culture - Preliminary No growth in 48 hours. 11/18/19 09:30 Urine, Clean Catch Urine Culture - Preliminary Culture exhibits no growth. Discharge Activity: Return to Normal Activity, May not drive while taking narcotic pain medications. Weight Bearing Status: Full weight bearing Call your doctor if you observe: Fever of 101 or Higher, Shortness of breath, Dizziness, Fainting spells, Chest pain, Increased palpitations (irregular heartbeat), Uncontrolled pain Home Medications: Medications to take at Discharge Albuterol Inhaler [Ventolin Hfa] 2 puff INHALATION Q4H PRN PRN 09/02/13 Aripiprazole 2 mg PO DAILY 06/09/19 Vilazodone Hydrochloride [Viibryd] 20 mg PO DAILY 06/09/19 omeprazole 40 mg capsule,delayed release 40 mg PO DAILY #30 cap 10/08/19 Ondansetron [Zofran] 8 mg PO PRN PRN 10/13/19 baclofen 10 mg tablet 10 mg PO BID #60 tab 11/11/19 meloxicam 15 mg tablet 15 mg PO DAILY #30 tab 11/11/19 oxycodone-acetaminophen 5 mg-325 mg tablet 1 tab PO Q6H PRN PRN 11/11/19 Oxybutynin [Ditropan] 5 mg PO TID #90 tab 11/20/19 Oxycodone [Oxyir] 5 mg PO Q8H PRN PRN 3 Days #10 tab 11/20/19 Following Prescrptions Were Given to Patient: Oxybutynin [Ditropan] 5 mg PO TID #90 tab Transmission Status: Received by [facility] Oxycodone [Oxyir] 5 mg PO Q8H PRN PRN 3 Days #10 tab PRN Reason: Pain Score 6-10/10 Transmission Status: Received by [facility] Primary Care Physician: Ezequiel Lepe MD [Primary Care Provider] - Please follow up with your Primary Care Physician in: 1 week. Please Follow Up With: Luisa Mendez MD When: as scheduled. Disposition: Home Minutes spent on discharge:: 28 Patient Condition:: Stable Medical Necessity - Tobacco Use Smoking Status: Current every day smoker Tobacco Use: Cigarettes Meaningful Use Info Meaningful Use Diagnoses (Choose all that apply): None applicable OBSV E&M: 12516 Observation care discharge
== END 2019-11-20 09:40 | disposition home or self-care (01) ==
LOC: ED 13:21 → MS3 13:24
PROVIDERS: Admitting Provider Hospitalist; Emergency Provider Emergency Medicine; PCP Internal Medicine; Visit Provider Hospitalist
DX: R50.82 Postprocedural fever (principal); N32.89 Other specified disorders of bladder; M79.605 Pain in left leg; J44.9 Chronic obstructive pulmonary disease, unspecified; F41.9 Anxiety disorder, unspecified; F32.9 Major depressive disorder, single episode, unspecified; K21.9 Gastro-esophageal reflux disease without esophagitis; Z87.442 Personal history of urinary calculi; Z79.899 Other long term (current) drug therapy; Z98.890 Other specified postprocedural states; E66.9 Obesity, unspecified; Z68.42 Body mass index [BMI] 45.0-49.9, adult; R91.1 Solitary pulmonary nodule; D72.829 Elevated white blood cell count, unspecified
CPT/HCPCS: 36415; 71045; 74177; 80048; 80053; 81001; 81025; 83605; 85025; 87040; 87086; 96361; 96365; 96366; 96375; 96376; 97802; 99218; 99251; 99284; J2185; J7030; J7050; Q9967; A4216; G0378; G0463; J2405

== ENCOUNTER 2019-11-22 17:49 | Emergency (ER) | payer MEDICARE, MEDICAID, SELFPAY ==
[2019-11-18 13:58] VITALS: BMI 47.0
[2019-11-22] VITALS (9 sets, daily range): BP systolic 113–160; BP diastolic 46–92; PULSE 78–94; RESP 16–18; TEMP 36.7–37.2; O2SAT 94–97; BMI 48.1
--- NOTE | 2019-11-22 17:58 | ED.DCSUM_ITS ---
History of Present Illness Chief Complaint: Fever Past Medical History - Allergies and Home Meds Allergies/Adverse Reactions: Allergies cefaclor [From Ceclor] Allergy (Verified 11/22/19 17:50) Hives ciprofloxacin Allergy (Verified 11/22/19 17:50) Hives erythromycin base [Erythromycin Base] Allergy (Verified 11/22/19 17:50) Upset Stomach moxifloxacin HCl [From Avelox] Allergy (Verified 11/22/19 17:50) Hives Penicillins Allergy (Verified 11/22/19 17:50) Upset Stomach Primary Care Physician: Ezequiel Lepe MD [Primary Care Provider] - Surgical History: cholecystectomy, hysterectomy, - - Cystoscopy Smoking Status: Current every day smoker - Family History Maternal Family History: Family History (Last Reviewed 11/18/19 @ 13:[address] Robert Love MD) Mother CVA (cerebral vascular accident) Father Diabetes Heart disease Myocardial infarction Other Anxiety Arthritis Melanoma Respiratory disease Family History: Reports: Heart Disease Physical Exam Vital Signs/Narrative: Vital Signs Temp Pulse Resp BP Pulse Ox 11/22/19 17:50 98.0 F 93 17 160/87 H 97 Diagnostic/Tx/Re-eval Chest X-Ray - ED: 1 View, Normal Clinical Impression(s) from Imaging Studies Chest X-Ray 11/22/19 19:20 IMPRESSION: Normal x-ray examination of the chest. Electronically Signed: Yo Miranda DO at 19:40 EDT Tel [phone], Service support , Chest CTA 11/22/19 19:36 IMPRESSION: No demonstrated pulmonary embolism or arterial dissection. Mild patchy groundglass densities in the upper lobes. Right lower lobe stable peripheral nodular density. Electronically Signed: Yo Miranda DO at 20:42 EDT Tel [phone], Service support , Laboratory Data 11/22/19 11/22/19 11/22/19 18:30 18:55 18:55 WBC 14.1 H RBC 4.38 Hgb 13.1 Hct 39.1 MCV 89.3 MCH 29.9 MCHC 33.5 D RDW Std Deviation 41.3 RDW Coeff of Saeid 12.7 Plt Count 327 MPV 9.8 Immature Gran % (Auto) 0.600 Neut % (Auto) 63.8 Lymph % (Auto) 29.0 [place] % (Auto) 4.7 Eos % (Auto) 1.6 Baso % (Auto) 0.3 Absolute Neuts (auto) 9.0 H Absolute Lymphs (auto) 4.09 Nucleated RBC % 0 Differential Comment SCANNED PT 12.9 INR 1.0 APTT 28.2 D-Dimer Quant (PE/DVT) 0.53 H* Sodium Potassium Chloride Carbon Dioxide Anion Gap BUN Creatinine Estim Creat Clear Calc Est GFR (MDRD) Af Amer Est GFR (MDRD) Non-Af BUN/Creatinine Ratio Glucose Lactic Acid Calcium Total Bilirubin AST ALT Alkaline Phosphatase Troponin I Total Protein Albumin Globulin Albumin/Globulin Ratio Urine Color Yellow Urine Clarity Clear Urine pH 7.0 Ur Specific [place] 1.005 Urine Protein Negative Urine Glucose (UA) Normal Urine Ketones Negative Urine Occult Blood 50 H Urine Nitrite Negative Urine Bilirubin Negative Urine Urobilinogen Normal Ur Leukocyte Esterase Negative Urine RBC 0-5 SEEN Urine WBC 0 SEEN Ur Squamous Epith Cells 0 SEEN Urine Bacteria 0 SEEN Urine Mucus 0 SEEN 11/22/19 11/22/19 18:55 18:55 WBC RBC Hgb Hct MCV MCH MCHC RDW Std Deviation RDW Coeff of Saeid Plt Count MPV Immature Gran % (Auto) Neut % (Auto) Lymph % (Auto) [place] % (Auto) Eos % (Auto) Baso % (Auto) Absolute Neuts (auto) Absolute Lymphs (auto) Nucleated RBC % Differential Comment PT INR APTT D-Dimer Quant (PE/DVT) Sodium 138 Potassium 3.8 Chloride 106 Carbon Dioxide 27.0 Anion Gap 5 BUN 10 Creatinine 0.60 Estim Creat Clear Calc 109.68 Est GFR (MDRD) Af Amer 138 Est GFR (MDRD) Non-Af 114 BUN/Creatinine Ratio 16.7 Glucose 112 H Lactic Acid 1.2 Calcium 8.7 Total Bilirubin 0.30 AST 14 L ALT 54 Alkaline Phosphatase 98 Troponin I < 0.015 Total Protein 6.8 Albumin 3.2 Globulin 3.6 Albumin/Globulin Ratio 0.9 Urine Color Urine Clarity Urine pH Ur Specific [place] Urine Protein Urine Glucose (UA) Urine Ketones Urine Occult Blood Urine Nitrite Urine Bilirubin Urine Urobilinogen Ur Leukocyte Esterase Urine RBC Urine WBC Ur Squamous Epith Cells Urine Bacteria Urine Mucus - Rhythm Strip Rhythm Strip: Sinus Rhythm Rate: 76 Ectopy: None - Medical Decision Making Patient presents with concern for continued fevers after her hospitalization recently. She states he was tested for COVID a couple of times over the last couple months but not this last visit. He was initially thought that she had a UTI however her urine cultures and blood cultures returned negative. She was discharged home and had 1 day of no fever and then now she has fevers again. Initially she stated that she felt like her chest was a little tight and this is been intermittent since that time she had started having fevers. Her EKG was sinus rhythm without signs of ischemia and is unchanged from previous. Chest x- ray was normal. Troponin negative. She has a leukocytosis of 14,000 however she has been in this range over the last week and has even up to as high as 20,000. D-dimer was positive so she had a CTA which showed no PEs but does show groundglass opacities as documented above. Given this I feel she likely has COVID?19. She refused to be tested again. She states she will home quarantine. She was given azithromycin for home as well as Zofran. She is given strict return precautions. ED Disposition - Plan for ED Patient: Disposition: Home or Assisted Living Diagnosis: COVID-19, Atypical pneumonia, Fever, Chest pain Instructions: ED Chest Pain NonCardiac, ED Upper Resp Infec Abx Tx Prescriptions: Azithromycin 250 mg PO DAILY #4 tab Prescription Printed proMETHazine tablet [Phenergan] 25 mg PO Q6H PRN PRN #14 tab PRN Reason: Nausea Prescription Printed Referrals: Ezequiel Lepe MD [Primary Care Provider] -
--- NOTE | 2019-11-22 18:13 | EKG12_ITS ---
Test Reason : FEVER Blood Pressure : / mmHG Vent. Rate : 076 BPM Atrial Rate : 076 BPM P-R Int : 132 ms QRS Dur : 086 ms QT Int : 392 ms P-R-T Axes : 059 055 042 degrees QTc Int : 441 ms Normal sinus rhythm Normal ECG Confirmed by PARTH FRANCO, VÍCTOR ([id number]), desk editor TIM ANTOINE ([id number]) on 11/23/2019 1:19:01 PM Referred By: KARLA LONG Confirmed By:VÍCTOR ALBA MD
[2019-11-22 18:36] LABS: Bacteria 0 SEEN /hpf (None Seen); Mucous, Urine 0 SEEN /hpf (<or=2+); Squamous Epithelial Cells - UA 0 SEEN /hpf (5-10); White Blood Cells 0 SEEN /hpf (0-5)
[2019-11-22 18:37] LABS: Color, Urine Yellow (Yellow); Glucose, Dipstick Normal (Normal); Ketone-Dipstick Negative (Negative); Leukocyte Esterase-Dipstick Negative /ul (Negative); Nitrite-Dipstick Negative (Negative); Occult Blood-Urine 50 /ul (Negative); Protein-Dipstick Negative (Negative); Specific Gravity, Urine 1.005 (1.002-1.030); Urine Bilirubin Dipstick Negative (Negative); Urine Clarity Clear (Clear); Urine Urobilinogen Normal (Normal)
[2019-11-22 18:46] LABS: Red Blood Cells-Urine 0-5 SEEN /hpf (0-5)
[2019-11-22 19:06] LABS: Absolute Lymphocyte Count 4.09 X10^3/uL (0.83-4.51); Basophil# 0.04 X10^3/uL; Basophil% 0.3 % (0-1); Eosinophil# 0.23 X10^3/uL; Eosinophils% 1.6 % (0-5); Hematocrit 39.1 % (37-47); Hemoglobin 13.1 g/dL (12.0-15.0); Lymphocyte # 4.09 X10^3/ul (4.0); Mean Corp Hgb Conc 33.5 g/dL (32-36); Mean Corpuscular Hgb 29.9 pg (27.0-32.0); Mean Corpuscular Volume 89.3 fL (81-99); Mean Platelet Vol. 9.8 fl (6.2-12.0); Monocyte# 0.66 X10^3/uL; Monocyte% 4.7 % (0-10); NRBC Flagged by Analyzer 0 % (0-5); Neutrophil # 8.97 X10^3/uL (2.7-7.7); Neutrophil % 63.8 % (47-70); POSITIVE MORPHOLOGY YES; Platelet Count 327 K/mm3 (150-450); RBC Distribution Width CV 12.7 % (11.6-14.6); RBC Distribution Width SD 41.3 fl (35.1-43.9); Red Blood Count 4.38 M/mm3 (4.2-5.4); White Blood Count 14.1 K/mm3 (4.4-11.0)
[2019-11-22 19:15] LABS: Differential Indicated SCAN CRITERIA MET
--- NOTE | 2019-11-22 19:20 | RAD_ITS ---
STUDY: X-RAY CHEST REASON FOR EXAM: Female, 44 years old. Chest pain and pressure TECHNIQUE: Frontal view COMPARISON: November 18, 2019. FINDINGS: The lungs are clear and expanded. There is no demonstrated pleural abnormality. Normal size heart. Normal mediastinum and jalyn. Normal visualized pulmonary arteries. Normal visualized aortic arch and descending thoracic aorta. Normal visualized thoracic spine. Normal visualized ribs, clavicles, and shoulders. There is no demonstrated abnormality of the visualized soft tissue structures of the upper abdomen. RAD/Chest 1 View (Portable) IMPRESSION: Normal x-ray examination of the chest. Electronically Signed: Yo Miranda DO at 19:40 EDT Tel [phone], Service support ,
[2019-11-22 19:22] LABS: Prothrombin Time (Protime)PT. 12.9 SECONDS (11.7-14.9)
[2019-11-22 19:23] LABS: Partial Thromboplast Time 28.2 Seconds (24.1-36.2)
[2019-11-22 19:31] LABS: D-Dimer Quantitative (DVT/PE) 0.53 FEU/ug/m (0.27-0.49)
[2019-11-22 19:32] LABS: ALB/GLOB Ratio 0.9 RATIO (0.9-2.4); AST(SGOT) 14 U/L (15-37); Alanine Aminotransfer ALT/SGPT 54 U/L (13-56); Albumin, Serum 3.2 g/dL (3.2-5.0); Alkaline Phosphatase 98 U/L (45-117); Anion Gap 5 (5-15); BUN 10 mg/dL (7-18); BUN/Creat Ratio 16.7 RATIO (10-20); Calcium,Total 8.7 mg/dL (8.5-10.1); Chloride 106 mmol/L (98-107); EST Glomerular Filtration Rate 114 mL/min (>60); Est Glom Filt Rate - Afr Amer 138 mL/min (>60); Estimated Creatinine Clearance 109.68 ml/min; Globulin 3.6 g/dL (2.2-4.2); Glucose 112 mg/dL (74-106); Lactic Acid 1.2 mmol/L (0.4-1.9); Potassium 3.8 mmol/L (3.5-5.1); Protein, Total 6.8 g/dL (6.4-8.2); Sodium Level 138 mmol/L (136-145)
--- NOTE | 2019-11-22 19:36 | CT_ITS ---
STUDY: CTA CHEST REASON FOR EXAM: Female, 44 years old. FEVER, EDEMA, INTERMITTENT SOB. RADIATION DOSAGE (If Supplied By Facility): CTDIvol = ( 12.665 ) mGy, DLP = ( 545.39 ) mGycm TECHNIQUE: The examination was performed with the intravenous administration of IV 100 ML ISOVUE 370. Post-processing of the angiographic images was performed, with multiplanar reformation and 3D reconstruction. Individualized dose optimization techniques were used for this CT. COMPARISON: August 29, 2019. FINDINGS: Normal enhancement of the main pulmonary artery and right and left pulmonary arteries. Normal enhancement of the bilateral peripheral pulmonary arteries. There is no demonstrated pulmonary embolism. Normal thoracic aorta and visualized great vessels. There is no demonstrated aortic dissection. Normal heart and pericardium. Normal mediastinum. Normal hilar regions. Normal visualized trachea and bronchi. The lungs are well expanded. Mild patchy groundglass densities in the upper lobes. 1.7 cm peripheral right lower lobe nodule. Normal pleura. Normal chest wall structures. Normal osseous structures. Normal visualized upper abdomen. CT/CTA Chest W/WO Contrast IMPRESSION: No demonstrated pulmonary embolism or arterial dissection. Mild patchy groundglass densities in the upper lobes. Right lower lobe stable peripheral nodular density. Electronically Signed: Yo Miranda DO at 20:42 EDT Tel [phone], Service support ,
[2019-11-22 19:41] LABS: Differential Comment SCANNED
[2019-11-22] MEDS: Acetaminophen 500 MG Tablet 1000 MG PO (19:46)
[2019-11-22] MEDS: Azithromycin 250 MG Tablet 500 MG PO (21:49)
== END 2019-11-22 21:55 | disposition home or self-care (01) ==
LOC: ED 18:50
PROVIDERS: Emergency Provider Student in an Organized Health Care Education/Training Program; PCP Internal Medicine
DX: U07.1 COVID-19 (principal); J18.9 Pneumonia, unspecified organism; R79.89 Other specified abnormal findings of blood chemistry; F17.200 Nicotine dependence, unspecified, uncomplicated; Z79.899 Other long term (current) drug therapy
CPT/HCPCS: 71045; 71275; 80053; 81001; 83605; 84484; 85025; 85379; 85610; 85730; 87040; 87086; 87088; 93005; 96360; 99285; J7030; Q9967; A4216

== ENCOUNTER → 2019-11-30 | Outpatient (CLI) | payer MEDICARE, MEDICAID, SELFPAY ==
[2019-11-22 17:50] VITALS: BMI 48.1
== END | disposition home or self-care (01) ==
LOC: LABSPEC 10:05
PROVIDERS: PCP Internal Medicine; Referring Provider Internal Medicine; Visit Provider Internal Medicine
DX: R19.7 Diarrhea, unspecified (principal); K92.1 Melena
CPT/HCPCS: 82274; 87493

== ENCOUNTER → 2019-12-16 14:36 | Outpatient (CLI) | payer MEDICARE, MEDICAID, SELFPAY ==
[2019-12-16 13:46] VITALS: BMI 48.1
[2019-12-16 17:42] LABS: T4 Free Direct 0.99 ng/dL (0.76-1.46); Thyroid Stim Hormone (TSH) 1.99 uIU/mL (0.358-3.74)
== END ==
PROVIDERS: PCP Internal Medicine; Referring Provider Internal Medicine; Visit Provider Internal Medicine
DX: F32.9 Major depressive disorder, single episode, unspecified (principal); F41.9 Anxiety disorder, unspecified; Z13.29 Encounter for screening for other suspected endocrine disorder
CPT/HCPCS: 36415; 84439; 84443

== ENCOUNTER 2019-12-28 17:07 | Observation (INO) | payer MEDICARE, MEDICAID, SELFPAY ==
[2019-12-16 13:46] VITALS: BMI 48.1
[2019-12-28] VITALS (8 sets, daily range): BP systolic 117–145; BP diastolic 71–96; PULSE 79–96; RESP 14–20; TEMP 36.8–37.3; O2SAT 95–97; BMI 48.2; BMI 49.2; BMI 49.3
--- NOTE | 2019-12-28 17:16 | ED.VIS.GEN ---
History of Present Illness Chief Complaint: Chest Pain Informant: Patient Narrative: 44-year-old female presenting with chest pain. She states that sharp and centered in her chest and epigastric region. Patient states this started about 2 hours ago and lasted about 30 minutes and went away for 45 minutes and now it is constant. She states she felt lightheaded and sat down. Patient denies any cardiac history. She does states she has COPD and asthma. She does not wear oxygen on a regular basis. Patient states her last stress test was years ago. - Past Medical History (1) Anxiety and depression Status: Chronic (2) Asthma Status: Chronic (3) COPD (chronic obstructive pulmonary disease) Status: Chronic (4) GERD (gastroesophageal reflux disease) Status: Chronic (5) Tobacco abuse Status: Chronic Past Medical History - Allergies and Home Meds Allergies/Adverse Reactions: Allergies cefaclor [From Ceclor] Allergy (Verified 12/28/19 17:07) Hives ciprofloxacin Allergy (Verified 12/28/19 17:07) Hives erythromycin base [Erythromycin Base] Allergy (Verified 12/28/19 17:07) Upset Stomach moxifloxacin HCl [From Avelox] Allergy (Verified 12/28/19 17:07) Hives Penicillins Allergy (Verified 12/28/19 17:07) Upset Stomach Past Medical History: - - Reviewed Surgical History: cholecystectomy, hysterectomy, - - Cystoscopy Lives: With Family Smoking Status: Current every day smoker Alcohol: None Drugs: None - Family History Maternal Family History: Family History (Last Reviewed 12/16/19 @ 13:45 by Trudi Jonas) Mother CVA (cerebral vascular accident) Father Diabetes Heart disease Myocardial infarction Other Anxiety Arthritis Melanoma Respiratory disease Family History: Reports: Heart Disease Review of Systems General: Reports: Sweats, - - Lightheadedness. Denies: Chills Eyes: Denies: Visual changes - bilaterally, Diplopia ENT: Denies: Rhinorrhea, Sore throat Cardiovascular: Reports: Chest pain Respiratory: Denies: Dyspnea, Cough, Dyspnea on exertion Genitourinary: Denies: Dysuria, Hematuria Musculoskeletal: Denies: Myalgias, Arthralgias Skin: Denies: Rash Neurological: Denies: Headache, Weakness Physical Exam Vital Signs/Narrative: Vital Signs Temp Pulse Resp BP Pulse Ox 12/28/19 17:11 99.1 F 96 18 145/96 H 95 General: Well nourished, Obese, No Acute Distress Head: Normocephalic, Atraumatic Eyes: Perrl, EOMI ENT: Moist mucous membranes. Negative for: No rhinorrhea Cardiovascular: Regular rate, Regular rhythm, - - Numbness to palpation over sternum Respiratory: No distress, CTA bilaterally. Negative for: Wheezing Abdomen: Soft, Nontender Extremities: Nontender, No edema Skin: Negative for: Normal color, No rash Neurological: Alert, Oriented x3 Psychological: Normal affect Diagnostic/Tx/Re-eval Clinical Impression(s) from Imaging Studies Chest X-Ray 12/28/19 17:48 IMPRESSION: Normal x-ray examination of the chest. Electronically Signed: Thuan Rockwell MD at 18:00 EDT Tel , Service support , Chest CTA 12/28/19 18:19 IMPRESSION: Normal CTA chest examination, without a demonstrated pulmonary embolism or aortic dissection. Stable 17 mm right lower lobe nodule. Electronically Signed: Thuan Rockwell MD at 19:13 EDT Tel , Service support , Laboratory Data 12/28/19 12/28/19 12/28/19 17:35 17:35 17:35 WBC 12.5 H RBC 4.75 Hgb 14.0 Hct 42.3 MCV 89.1 MCH 29.5 MCHC 33.1 RDW Std Deviation 41.5 RDW Coeff of Saeid 12.8 Plt Count 341 MPV 9.8 Immature Gran % (Auto) 0.500 Neut % (Auto) 60.7 Lymph % (Auto) 32.1 [place] % (Auto) 4.7 Eos % (Auto) 1.7 Baso % (Auto) 0.3 Absolute Neuts (auto) 7.6 Absolute Lymphs (auto) 4.02 Nucleated RBC % 0 Differential Comment D-Dimer Quant (PE/DVT) 0.51 H* Sodium 141 Potassium 3.8 Chloride 109 H Carbon Dioxide 26.0 Anion Gap 6 BUN 11 Creatinine 0.89 Estim Creat Clear Calc 71.07 Est GFR (MDRD) Af Amer 88 Est GFR (MDRD) Non-Af 73 BUN/Creatinine Ratio 12.4 Glucose 156 H Calcium 8.7 Troponin I < 0.015 - Rhythm Strip Rate: 94 - EKG Initial EKG Interpretation: Sinus Rhythm, No Acute Injury Pattern - Medical Decision Making 44-year-old female presenting with chest pain. She states she has had no recent stress test or cardiac evaluation. She states her chest pain started today and lasted for 30 minutes resolved for 45 minutes, then came back. She states it does hurt to touch her chest but it also feels deeper. She states she got diaphoretic and lightheaded with it. Her EKG here is normal sinus rhythm. Her chest x-ray is negative. Troponin is negative. Her lab work is been within normal limits except for an elevated d-dimer at 0.51. She had CTA of the chest which is negative for acute process and actually shows improvement from her previous groundglass opacities that she had last month. On reevaluation she says having some chest pain. She was given nitroglycerin. Heart score is a 3 however she has had continued chest pain. I believe she needs to be admitted for observation. I did speak with the hospitalist was amenable to admission. She was given aspirin prior to admission. Impression: 1. Chest pain ED Disposition - Plan for ED Patient: Disposition: Acute Care Hospital [facility]
--- NOTE | 2019-12-28 17:32 | EKG12_ITS ---
Test Reason : CP Blood Pressure : / mmHG Vent. Rate : 094 BPM Atrial Rate : 094 BPM P-R Int : 132 ms QRS Dur : 076 ms QT Int : 364 ms P-R-T Axes : 067 050 044 degrees QTc Int : 455 ms Normal sinus rhythm Normal ECG Confirmed by VÍCTOR ALBA MD ([id number]), senior editor JYOTSNA MANSFIELD ([id number]) on 12/30/2019 10:06:44 AM Referred By: MERCEDES Confirmed By:VÍCTOR ALBA MD
[2019-12-28] MEDS: Ondansetron 4 MG/2 ML Vial IV (17:40)
[2019-12-28] MEDS: Morphine 4 MG/ML Syringe IV ×2 (17:40→20:09)
[2019-12-28 17:47] LABS: Absolute Lymphocyte Count 4.02 X10^3/uL (0.83-4.51); Absolute Neutrophil Count 7.6 X10^3/uL (2.0-7.7); Basophil# 0.04 X10^3/uL; Basophil% 0.3 % (0-1); Eosinophil# 0.21 X10^3/uL; Eosinophils% 1.7 % (0-5); Hematocrit 42.3 % (37-47); Lymphocyte # 4.02 X10^3/ul (4.0); Lymphocyte % 32.1 % (19-41); Mean Corp Hgb Conc 33.1 g/dL (32-36); Mean Corpuscular Hgb 29.5 pg (27.0-32.0); Mean Corpuscular Volume 89.1 fL (81-99); Mean Platelet Vol. 9.8 fl (6.2-12.0); Monocyte# 0.59 X10^3/uL; Monocyte% 4.7 % (0-10); NRBC Flagged by Analyzer 0 % (0-5); Neutrophil % 60.7 % (47-70); POSITIVE MORPHOLOGY YES; Platelet Count 341 K/mm3 (150-450); RBC Distribution Width CV 12.8 % (11.6-14.6); RBC Distribution Width SD 41.5 fl (35.1-43.9); Red Blood Count 4.75 M/mm3 (4.2-5.4); White Blood Count 12.5 K/mm3 (4.4-11.0)
--- NOTE | 2019-12-28 17:48 | RAD_ITS ---
STUDY: X-RAY CHEST REASON FOR EXAM: Female, 44 years old. SUDDEN ONSET CHEST PAIN THAT STARTED TWO HOURS AGO WITH ASSOCIATED DIZZINESS AND DIAPHORESIS. TECHNIQUE: Single frontal view of the chest. COMPARISON: 11/22/2019 FINDINGS: The lungs are clear and expanded. There is no demonstrated pleural abnormality. Normal size heart. Normal mediastinum and jalyn. Normal visualized pulmonary arteries. Normal visualized aortic arch and descending thoracic aorta. Normal visualized thoracic spine. Normal visualized ribs, clavicles, and shoulders. There is no demonstrated abnormality of the visualized soft tissue structures of the upper abdomen. RAD/Chest 1 View (Portable) IMPRESSION: Normal x-ray examination of the chest. Electronically Signed: Thuan Rockwell MD at 18:00 EDT Tel , Service support ,
[2019-12-28 18:05] LABS: Anion Gap 6 (5-15); BUN 11 mg/dL (7-18); BUN/Creat Ratio 12.4 RATIO (10-20); Calcium,Total 8.7 mg/dL (8.5-10.1); Chloride 109 mmol/L (98-107); Creatinine, Serum 0.89 mg/dL (0.55-1.02); EST Glomerular Filtration Rate 73 mL/min (>60); Est Glom Filt Rate - Afr Amer 88 mL/min (>60); Estimated Creatinine Clearance 71.07 ml/min; Glucose 156 mg/dL (74-106); Potassium 3.8 mmol/L (3.5-5.1); Sodium Level 141 mmol/L (136-145)
[2019-12-28 18:19] LABS: D-Dimer Quantitative (DVT/PE) 0.51 FEU/ug/m (0.27-0.49)
--- NOTE | 2019-12-28 18:19 | CT_ITS ---
STUDY: CTA CHEST REASON FOR EXAM: Female, 44 years old. Chest pain today, dizziness, diaphoresis. Hx COPD, asthma, ? kidney cancer. RADIATION DOSAGE (If Supplied By Facility): CTDIvol = ( 11.39 ) mGy, DLP = ( 513.33 ) mGycm TECHNIQUE: The examination was performed with the intravenous administration of 100mL Isovue 370. Post-processing of the angiographic images was performed, with multiplanar reformation and 3D reconstruction. Individualized dose optimization techniques were used for this CT. COMPARISON: 11/22/2019 FINDINGS: Normal enhancement of the main pulmonary artery and right and left pulmonary arteries. Normal enhancement of the bilateral peripheral pulmonary arteries. There is no demonstrated pulmonary embolism. Normal thoracic aorta and visualized great vessels. There is no demonstrated aortic dissection. Normal heart and pericardium. Normal mediastinum. Normal hilar regions. Normal visualized trachea and bronchi. The lungs are well expanded. Stable 17 mm right lower lobe nodule. Normal pleura. Normal chest wall structures. Normal osseous structures. Normal visualized upper abdomen. CT/CTA Chest W/WO Contrast IMPRESSION: Normal CTA chest examination, without a demonstrated pulmonary embolism or aortic dissection. Stable 17 mm right lower lobe nodule. Electronically Signed: Thuan Rockwell MD at 19:13 EDT Tel , Service support ,
[2019-12-28 18:22] LABS: Differential Indicated SCAN CRITERIA MET
--- NOTE | 2019-12-28 19:27 | HP.PCM_ITS ---
Problem List (1) Chest pain Status: Acute History of Present Illness Date of Admission: 12/28/19 Chief Complaint: Chest pain The patient is a 44 year old F with a significant history of anxiety and depression; morbid obesity; COPD and GERD who presents to the emergency department with chest pain. Her chest pain occurred today while driving. Her chest pain is substernal. Her chest pain initially was episodic but then it became persistent. Her chest started about 2 hours prior to presentation. Intensity of the chest pain was 8/10. She denies any aggravating or ameliorating factors. She described the chest pain as someone with high heel shoes standing on her chest. Associated with her symptoms is diaphoresis; presyncope and lightheadedness.. Her chest pain radiated to her upper back. She denies any nausea; vomiting or shortness of breath. About a month ago she had a CT of her chest which showed groundglass opacity. Covid test at that time was negative. Reportedly her father had 21 angioplasties and stents. Her father had heart a ttack and pacemaker. Her father's first cardiac event was at age 40. Past Medical History Past Medical History (Chronic Problems): Chronic Problems (Last Reviewed 12/28/19 @ 23:[address] Arnulfo Ferreira MD) COPD (chronic obstructive pulmonary disease) (Chronic) Asthma (Chronic) Tobacco abuse (Chronic) Obesity (Chronic) Chronic neutrophilia (Chronic) Kidney calculi (Chronic) Anxiety and depression (Chronic) GERD (gastroesophageal reflux disease) (Chronic) Medical History: Medical History (Last Reviewed 12/29/19 @ 00:[address] Arnulfo Ferreira MD) Anxiety and depression (Chronic) F41.9, F32.9 GERD (gastroesophageal reflux disease) (Chronic) K21.9 Asthma J45.909 Cancer of left kidney C64.2 History of mononucleosis Z86.19 COPD (chronic obstructive pulmonary disease) J44.9 H/O emotional problems (Inactive) Z86.59 Intestinal ulcer (Inactive) K63.3 Allergies cefaclor [From Ceclor] Allergy (Verified 12/28/19 17:07) Hives ciprofloxacin Allergy (Verified 12/28/19 17:07) Hives erythromycin base [Erythromycin Base] Allergy (Verified 12/28/19 17:07) Upset Stomach moxifloxacin HCl [From Avelox] Allergy (Verified 12/28/19 17:07) Hives Penicillins Allergy (Verified 12/28/19 17:07) Upset Stomach Home Medications: Ambulatory Orders Medication Instructions Recorded Albuterol Inhaler [Ventolin Hfa] 2 puff INHALATION Q4H PRN PRN 09/02/13 Aripiprazole 2 mg PO DAILY 06/09/19 Vilazodone Hydrochloride [Viibryd] 20 mg PO DAILY 06/09/19 Famotidine 20 mg PO BID 12/28/19 Ibuprofen 600 mg PO BID 12/28/19 Omeprazole 40 mg PO DAILY 12/28/19 Zinc Sulfate (50mg elemental) 220 mg PO DAILY 12/28/19 [Zinc Sulfate] Surgical History: Surgical History (Last Reviewed 12/29/19 @ 00:[address] 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 Arnulfo Ferreira MD) Mother CVA (cerebral vascular accident) Father Diabetes Heart disease Myocardial infarction Other Anxiety Arthritis Melanoma Respiratory disease History Items: Heart Disease Review of Systems Constitutional: Denies: Chills, Fever, Weight Change HEENT: Denies: Head Aches, Sinus Congestion, Sinus Drainage Cardiovascular: Reports: Chest Pain, Light Headedness. Denies: Palpitations Respiratory: Denies: Cough, Shortness of breath at rest, Sputum production Gastrointestinal: Denies: Abdominal Pain, Nausea, Vomiting Genitourinary: Denies: Dysuria Musculoskeletal: Denies: Joint Pain, Joint Tenderness Skin: Denies: Rash, Wounds Neurological: Denies: Numbness, Tingling, Focal weakness Psychiatric: Denies: Anxiety, Depression, Homicidal Ideations, Suicidal Ideations Hematologic/ Lymphatic: Denies: Easy Bruising, Easy Bleeding VTE Information - Inpt Only VTE Present on Admission: No VTE Mechan Device Prophylaxis: SCD's VTE Pharm Prophylaxis ordered?: No Patient Problems: Active and Suspected Problems (Last Reviewed 12/28/19 @ 23:[address] Arnulfo Ferreira MD) Chest pain (Acute) - Physical Exam Vitals/I&O's: Vital Signs Temp Pulse Resp BP Pulse Ox 99.1 F 86 16 124/78 H 97 12/28/19 17:11 12/28/19 18:25 12/28/19 19:15 12/28/19 18:25 12/28/19 18:25 Oxygen Delivery Method Room Air Weight: 131.542 kg Body Mass Index (BMI) 48.2 Finger Stick Blood Glucose 96 General: Alert, Oriented x3, Cooperative HEENT: Atraumatic, PERRLA, EOMI, Normocephalic Neck: Supple, No JVD, Negative Carotid Bruits Lungs: Clear to auscultation, Normal air movement, No rhonchi, No wheeze, No rales, - - Tenderness at retrosternal area Cardiovascular: Regular rate, Normal S1, Normal S2, No murmurs Abdomen: Bowel Sounds Present, Soft, Tender - Mild Extremities: No edema, Capillary Refill Less than 3 Seconds Skin: No rashes, No breakdown Musculoskeletal: No Tenderness to Palpation of Joints or Extremities Neurological: Cranial nerves II-XII grossly intact Psych/Mental Status: Normal Affect, Appropriate Laboratory Results 12/28/19 17:35: WBC 12.5 H, RBC 4.75, Hgb 14.0, Hct 42.3, MCV 89.1, MCH 29.5, MCHC 33.1, RDW Std Deviation 41.5, RDW Coeff of Saeid 12.8, Plt Count 341, MPV 9.8, Immature Gran % (Auto) 0.500, Neut % (Auto) 60.7, Lymph % (Auto) 32.1, [place] % (Auto) 4.7, Eos % (Auto) 1.7, Baso % (Auto) 0.3, Absolute Neuts (auto) 7.6, Absolute Lymphs (auto) 4.02, Nucleated RBC % 0, Differential Comment 12/28/19 17:35: D-Dimer Quant (PE/DVT) 0.51 H* 12/28/19 17:35: Sodium 141, Potassium 3.8, Chloride 109 H, Carbon Dioxide 26.0, Anion Gap 6, BUN 11, Creatinine 0.89, Estim Creat Clear Calc 71.07, Est GFR (MDR D) Af Amer 88, Est GFR (MDRD) Non-Af 73, BUN/Creatinine Ratio 12.4, Glucose 156 H, Calcium 8.7, Troponin I < 0.015 Assessment/Plan All Active Problems (Last Reviewed 12/28/19 @ 23:[address] Arnulfo Ferreira MD) Chest pain (Acute) The patient is a 44 year old F with a significant history of anxiety and depression; morbid obesity; COPD and GERD who presents emergency department with chest pain and found to have a tenderness at the retrosternal area. Chest pain Different diagnoses include cardiac source of chest pain; and costochondritis. Of note patient had tenderness of her retrosternal area. Place on a monitored bed at PCU Actual CXR image was independently visualized. No acute cardiopulmonary process was noted. Patient with elevated d-dimer Follow-up CTA unremarkable. Actual EKG tracing was independently visualized. EKG tracing showed sinus rhythm Received morphine and nitroglycerin at the emergency department. Reportedly she did not have any relief from nitroglycerin. Morphine sulfate gave her some relief. Morphine IV as needed nitroglycerin ordered. Aspirin 324 mg ordered emergency department ASA 81 mg p.o. daily ordered We will check lipid panel. Stat EKG as needed for chest pain Treadmill stress test in the AM if the cardiac enzymes are negative GERD Famotidine and omeprazole continued Depression Vilazodone continued DVT prophylaxis SCD while planning for cardiac work up for chest pain OBSV E&M: 01200 Initial observation care L3
[2019-12-28] MEDS: Nitroglycerin (INPATIENT USE) 0.4 MG TAB.SUBL SUBLINGUAL (19:28)
[2019-12-28] MEDS: Aspirin 81 MG TAB.CHEW 324 MG PO (19:30)
--- NOTE | 2019-12-28 20:42 | EKG12_ITS ---
Test Reason : CP ADMISSION Blood Pressure : / mmHG Vent. Rate : 078 BPM Atrial Rate : 078 BPM P-R Int : 136 ms QRS Dur : 090 ms QT Int : 412 ms P-R-T Axes : 068 048 041 degrees QTc Int : 469 ms Normal sinus rhythm Normal ECG When compared with ECG of 22-NOV-2019 18:32, No significant change was found Confirmed by FREDDY KEANE ([id number]), sound editor ROMEO SADLER ([id number]) on 01/04/2020 10:10:37 AM Referred By: CHEYANNE Confirmed By:FREDDY KEANE
[2019-12-28] MEDS: Acetaminophen 325 MG Tablet 650 MG PO (21:20)
[2019-12-28] MEDS: Morphine 2 MG/ML Syringe IV (23:30)
[2019-12-28] MEDS: 0.9% Saline Lock 10 ML Syringe IV (23:30)
[2019-12-29] VITALS: PULSE 74
[2019-12-29 02:07] LABS: Absolute Lymphocyte Count 3.74 X10^3/uL (0.83-4.51); Absolute Neutrophil Count 5.7 X10^3/uL (2.0-7.7); Basophil# 0.05 X10^3/uL; Basophil% 0.5 % (0-1); Eosinophils% 1.9 % (0-5); Hematocrit 42.3 % (37-47); Hemoglobin 13.6 g/dL (12.0-15.0); Lymphocyte # 3.74 X10^3/ul (4.0); Mean Corp Hgb Conc 32.2 g/dL (32-36); Mean Corpuscular Hgb 29.4 pg (27.0-32.0); Mean Corpuscular Volume 91.6 fL (81-99); Mean Platelet Vol. 10.4 fl (6.2-12.0); Monocyte% 5.8 % (0-10); NRBC Flagged by Analyzer 0 % (0-5); Neutrophil # 5.74 X10^3/uL (2.7-7.7); Neutrophil % 55.3 % (47-70); Platelet Count 280 K/mm3 (150-450); RBC Distribution Width CV 12.9 % (11.6-14.6); RBC Distribution Width SD 42.8 fl (35.1-43.9); Red Blood Count 4.62 M/mm3 (4.2-5.4); White Blood Count 10.4 K/mm3 (4.4-11.0)
[2019-12-29 02:27] LABS: Anion Gap 5 (5-15); BUN 13 mg/dL (7-18); BUN/Creat Ratio 15.5 RATIO (10-20); Calcium,Total 8.3 mg/dL (8.5-10.1); Chloride 108 mmol/L (98-107); Cholesterol 195 mg/dL (200); Creatinine, Serum 0.84 mg/dL (0.55-1.02); EST Glomerular Filtration Rate 78 mL/min (>60); Est Glom Filt Rate - Afr Amer 94 mL/min (>60); Glucose 112 mg/dL (74-106); High Density Lipoprotein 40 mg/dL; Potassium 4.1 mmol/L (3.5-5.1); Sodium Level 141 mmol/L (136-145); Triglycerides 157 mg/dL; Very Low Density Lipoprotein 31 mg/dL (5-40)
[2019-12-29 02:35] VITALS: BP 113/72; PULSE 71; RESP 18; TEMP 36.5; O2SAT 95
[2019-12-29] MEDS: Morphine 2 MG/ML Syringe IV ×2 (02:40→06:10)
[2019-12-29] MEDS: 0.9% Saline Lock 10 ML Syringe IV ×2 (02:40→06:10)
[2019-12-29 02:56] VITALS: PULSE 66
--- NOTE | 2019-12-29 05:55 | EKG12_ITS ---
Test Reason : CP Blood Pressure : / mmHG Vent. Rate : 081 BPM Atrial Rate : 081 BPM P-R Int : 138 ms QRS Dur : 074 ms QT Int : 382 ms P-R-T Axes : 066 047 040 degrees QTc Int : 443 ms Normal sinus rhythm Normal ECG Confirmed by FREDDY KEANE ([id number]), assignment editor ROMEO SADLER ([id number]) on 01/04/2020 9:53:03 AM Referred By: KAMI Confirmed By:FREDDY KEANE
[2019-12-29 06:06] VITALS: BP 106/69; PULSE 70; RESP 18; TEMP 36.4; O2SAT 95
[2019-12-29] MEDS: Acetaminophen 325 MG Tablet 650 MG PO (06:10)
[2019-12-29] MEDS: Aspirin E.C. 81 MG Tablet PO (06:10)
--- NOTE | 2019-12-29 06:55 | NURSING ---
Called to patient room by [employer] stating that patient wants to leave AMA. Arrived in pt. room 123 and pt. talking on phone to daughter. Patient very upset while talking on phone. This nurse had previously discussed her needing to sign AMA paper if she wanted to leave. She stated she would not sign and that she was upset that her stress test was not done at 6 AM like she was told. She had to get home to take daughter to doctor appointment at 8:30, stated she needs a cigarette, and that there was no way I will sit here all day without eating or drinking. She stated she should have never been admitted and should have had stress test as outpatient. Also stated she has no money to pay for this anyway. Pt. very upset and angry and stated to get IV out. IV removed, catheter intact, no S/S of infection or irritation, monitoring coordinator removed, pt dressed and ready to leave. Refusing wheelchair. Pt. left with belongings. Amber Yuen also in room during this incident. Pt. escorted out by Amber Yuen. Pt. cooperative while leaving.
--- NOTE | 2019-12-29 06:58 | NURSING ---
This nurse core texted Dr. Ferreira and notified that patient left AMA. Dr. Ferreira read text and will notify attending on next shift.
--- NOTE | 2019-12-29 06:58 | NURSING ---
pt refusing to stay since stress test not completed at 6 am. her understanding was that test would be started at 6 and she could go home within an hour. pt states cannot stay, has to take daughter to very important doctor appointment. risks explained, pt refused to sign ama paper, states has no money so it doesn't matter, wants to leave. pt upset on phone with daughter stating she will be there to take her to appointment, needs a ciggarette and needs out of this hospital. patient escorted to exit, she remained calm the entire way.
--- NOTE | 2019-12-29 07:06 | PCM.PN.BLA ---
Progress Note Discharge summary Was notified of patient had left AMA. Patient was admitted for chest pain. She received full dose aspirin at emergency department. EKG showed sinus rhythm. Troponin was negative. The plan was to get a stress test. STROKE Vital Signs/Narrative: Vital Signs Temp Pulse Resp BP Pulse Ox 12/29/19 06:06 97.6 F L 70 18 106/69 95
== END 2019-12-29 06:58 | disposition left against medical advice (07) ==
LOC: ED 18:15 → PCU 20:05
PROVIDERS: Admitting Provider Hospitalist; Emergency Provider Student in an Organized Health Care Education/Training Program; PCP Internal Medicine; Visit Provider Hospitalist
DX: R07.89 Other chest pain (principal); R42 Dizziness and giddiness; J44.9 Chronic obstructive pulmonary disease, unspecified; F32.9 Major depressive disorder, single episode, unspecified; F41.9 Anxiety disorder, unspecified; K21.9 Gastro-esophageal reflux disease without esophagitis; E66.01 Morbid (severe) obesity due to excess calories; F17.210 Nicotine dependence, cigarettes, uncomplicated; Z79.899 Other long term (current) drug therapy; Z68.42 Body mass index [BMI] 45.0-49.9, adult; Z82.49 Family history of ischemic heart disease and other diseases of the circulatory system; Z85.528 Personal history of other malignant neoplasm of kidney
CPT/HCPCS: 36415; 71045; 71275; 80048; 80061; 84484; 85025; 85379; 93005; 96374; 96376; 99218; 99285; Q9967; A4216; G0378; J2405

== ENCOUNTER 2019-12-29 13:09 | Emergency (ER) | payer MEDICARE, MEDICAID, SELFPAY ==
[2019-12-28 20:28] VITALS: BMI 49.2
[2019-12-29 13:09] VITALS: BP 157/88; PULSE 94; RESP 16; TEMP 36.1; O2SAT 96; BMI 48.9
--- NOTE | 2019-12-29 13:48 | EKG12_ITS ---
Test Reason : CP Blood Pressure : / mmHG Vent. Rate : 087 BPM Atrial Rate : 087 BPM P-R Int : 134 ms QRS Dur : 082 ms QT Int : 384 ms P-R-T Axes : 036 039 040 degrees QTc Int : 462 ms Normal sinus rhythm Normal ECG Confirmed by FREDDY KEANE ([id number]), acquisitions editor ROMEO SADLER ([id number]) on 01/07/2020 8:58:16 AM Referred By: MERCEDES Confirmed By:FREDDY KEANE
[2019-12-29 14:14] LABS: Absolute Neutrophil Count 7.2 X10^3/uL (2.0-7.7); Basophil# 0.04 X10^3/uL; Basophil% 0.4 % (0-1); Eosinophil# 0.17 X10^3/uL; Eosinophils% 1.6 % (0-5); Hematocrit 41.2 % (37-47); Hemoglobin 13.6 g/dL (12.0-15.0); Lymphocyte % 25.2 % (19-41); Mean Corpuscular Hgb 29.7 pg (27.0-32.0); Monocyte# 0.59 X10^3/uL; Monocyte% 5.5 % (0-10); NRBC Flagged by Analyzer 0 % (0-5); Neutrophil # 7.15 X10^3/uL (2.7-7.7); Neutrophil % 66.8 % (47-70); Platelet Count 315 K/mm3 (150-450); RBC Distribution Width CV 12.9 % (11.6-14.6); RBC Distribution Width SD 42.4 fl (35.1-43.9); Red Blood Count 4.58 M/mm3 (4.2-5.4); White Blood Count 10.7 K/mm3 (4.4-11.0)
[2019-12-29] MEDS: Ketorolac 30 MG/ML Syringe IV (14:18)
[2019-12-29 14:30] LABS: Anion Gap 4 (5-15); BUN 14 mg/dL (7-18); BUN/Creat Ratio 18.1 RATIO (10-20); Calcium,Total 8.6 mg/dL (8.5-10.1); Chloride 107 mmol/L (98-107); Creatinine, Serum 0.77 mg/dL (0.55-1.02); EST Glomerular Filtration Rate 85 mL/min (>60); Est Glom Filt Rate - Afr Amer 103 mL/min (>60); Estimated Creatinine Clearance 82.15 ml/min; Glucose 109 mg/dL (74-106); Potassium 3.9 mmol/L (3.5-5.1); Sodium Level 139 mmol/L (136-145)
--- NOTE | 2019-12-29 14:54 | ED.VISSUMM ---
- ER Visit Summary Date of Service: 12/29/19 Chief Complaint: Chest pain History of Present Illness: The patient is a 44 F who continues with chest pain. This is been ongoing for 24 hours. She was admitted to the hospital last night but left AMA this morning because she had to get her daughter to a doctor's appointment. She continues with pain. It sharp on the left side of her chest. She describes it as somebody with a high heel poking her in the chest. Palpation makes it worse. Nothing makes it better. She has had lightheadedness as well. No dyspnea. She has a family history of early cardiac disease and she is a smoker but she has no other cardiac risk factors. She has never had any cardiac stress testing before. Physical Examination: Vital signs reviewed. HEENT exam unremarkable. Heart is regular rate and rhythm without murmurs. Lungs have mild wheezing inspiratory and expiratory. She has point tenderness on the left parasternal area. Abdomen is soft and nontender. Extremities reveal no edema. Peripheral pulses are equal. Skin exam normal. Neurologic exam normal. Test Results: EKG is sinus rhythm with no ischemic changes. Rate of 81. Laboratory studies are normal. Emergency Department Course and Treatment: Patient received Toradol IV. Patient has had 4 negative troponins in the past 24 hours. I do not feel this is cardiac in nature. Her heart score is 3 which makes her low risk. I feel she can follow-up as an outpatient for outpatient stress testing. Patient is feeling better after the IV Toradol. Again I feel this is musculoskeletal. I will give her naproxen for pain control at home. Treatment Plan: [] Disposition: Discharge Impression: Chest wall pain This note was generated with [employer] dictation software. It may contain incorrect words, spelling, and punctuation that were not noted in review of the chart prior to signing ED Disposition - Plan for ED Patient: Disposition: Home or Assisted Living Instructions: ED Chest Pain Atypical Unkn Cause Prescriptions: Naproxen [Naprosyn] 500 mg PO BID PRN #20 tab Transmission Status: Pending to [id number] Referrals: Ezequiel Lepe MD [Primary Care Provider] -
[2019-12-29 15:03] VITALS: BP 137/69; PULSE 62; RESP 15; O2SAT 97
== END 2019-12-29 15:04 | disposition home or self-care (01) ==
PROVIDERS: Emergency Provider Emergency Medicine; PCP Internal Medicine
DX: R07.89 Other chest pain (principal); R42 Dizziness and giddiness; J44.9 Chronic obstructive pulmonary disease, unspecified; F32.9 Major depressive disorder, single episode, unspecified; F41.9 Anxiety disorder, unspecified; F17.200 Nicotine dependence, unspecified, uncomplicated; Z82.49 Family history of ischemic heart disease and other diseases of the circulatory system; Z79.899 Other long term (current) drug therapy
CPT/HCPCS: 80048; 84484; 85025; 93005; 99284; A4216

== ENCOUNTER 2020-01-05 13:35 | Emergency (ER) | payer MEDICARE, MEDICAID, SELFPAY ==
[2019-12-31 17:13] VITALS: BMI 48.9
[2020-01-05 13:36] VITALS: BP 139/124; PULSE 89; RESP 23; TEMP 36.6; O2SAT 95; BMI 51.7
--- NOTE | 2020-01-05 14:09 | EKG12_ITS ---
Test Reason : A.M.EKG Blood Pressure : / mmHG Vent. Rate : 071 BPM Atrial Rate : 071 BPM P-R Int : 132 ms QRS Dur : 096 ms QT Int : 422 ms P-R-T Axes : 044 049 036 degrees QTc Int : 458 ms Normal sinus rhythm Normal ECG When compared with ECG of 28-DEC-2019 21:33, MANUAL COMPARISON REQUIRED, DATA IS UNCONFIRMED Confirmed by SHANTA FRANCO, BIJAL ([id number]), newspaper editor managing TIM ANTOINE ([id number]) on 01/11/2020 1:47:13 PM Referred By: TERESITA Confirmed By:KURT WOMACK MD
--- NOTE | 2020-01-05 14:15 | RAD_ITS ---
STUDY: X-RAY CHEST REASON FOR EXAM: Female, 44 years old. Chest pain x 30 minutes, vomiting, happened one week ago also TECHNIQUE: Single AP portable view of the chest. COMPARISON: Comparison is made with prior examination dated 12/28/2019. FINDINGS: EKG electrodes are seen. The lungs are clear and expanded. Scattered calcified granulomas. There is no demonstrated pleural abnormality. Normal size heart. Normal mediastinum and jalyn. Normal visualized pulmonary arteries. Normal visualized aortic arch and descending thoracic aorta. There are degenerative changes of the visualized thoracic spine. Normal visualized ribs, clavicles, and shoulders. There is no demonstrated abnormality of the visualized soft tissue structures of the upper abdomen. RAD/Chest 1 View (Portable) IMPRESSION: Scattered calcified granulomas. Electronically Signed: Michael Jacome, at 14:28 EDT , Service support ,
[2020-01-05] MEDS: 0.9% Normal Saline 1,000 ML 1000 ML IV (14:19)
[2020-01-05] MEDS: Ondansetron 4 MG/2 ML Vial IV (14:19)
[2020-01-05 14:22] LABS: Absolute Lymphocyte Count 3.43 X10^3/uL (0.83-4.51); Absolute Neutrophil Count 9.2 X10^3/uL (2.0-7.7); Basophil# 0.03 X10^3/uL; Basophil% 0.2 % (0-1); Eosinophil# 0.21 X10^3/uL; Eosinophils% 1.6 % (0-5); Hematocrit 43.3 % (37-47); Hemoglobin 14.4 g/dL (12.0-15.0); Lymphocyte # 3.43 X10^3/ul (4.0); Lymphocyte % 25.4 % (19-41); Mean Corp Hgb Conc 33.3 g/dL (32-36); Mean Corpuscular Hgb 29.7 pg (27.0-32.0); Mean Corpuscular Volume 89.3 fL (81-99); Mean Platelet Vol. 10.3 fl (6.2-12.0); Monocyte# 0.59 X10^3/uL; Monocyte% 4.4 % (0-10); NRBC Flagged by Analyzer 0 % (0-5); Neutrophil # 9.17 X10^3/uL (2.7-7.7); Neutrophil % 67.9 % (47-70); Platelet Count 345 K/mm3 (150-450); RBC Distribution Width CV 12.8 % (11.6-14.6); RBC Distribution Width SD 41.8 fl (35.1-43.9); Red Blood Count 4.85 M/mm3 (4.2-5.4); White Blood Count 13.5 K/mm3 (4.4-11.0)
--- NOTE | 2020-01-05 14:33 | ED.DCSUM_ITS ---
History of Present Illness Chief Complaint: Chest Pain Informant: Patient Narrative: 4-year-old female with past medical history of PUD presents with concern for vomiting and epigastric pain. States this began approximately 45 minutes ago. States that she has had 2 episodes of vomiting which she describes as green bile. Concern for having chest pain as well which she describes as aching and retrosternal. Denies any shortness of breath or diaphoresis. Patient has been told she has peptic ulcer disease in the past. Is a current smoker but denies any drug or alcohol abuse. Patient takes no medication for her reflux at this time. Diet consists mainly of fatty foods and is low on fiber. Past Medical History - Allergies and Home Meds Allergies/Adverse Reactions: Allergies cefaclor [From Ceclor] Allergy (Verified 01/05/20 13:40) Hives ciprofloxacin Allergy (Verified 01/05/20 13:40) Hives erythromycin base [Erythromycin Base] Allergy (Verified 01/05/20 13:40) Upset Stomach moxifloxacin HCl [From Avelox] Allergy (Verified 01/05/20 13:40) Hives Penicillins Allergy (Verified 01/05/20 13:40) Upset Stomach Primary Care Physician: Ezequiel Lepe MD [Primary Care Provider] - Past Medical History: - - PUD Surgical History: cholecystectomy, hysterectomy, - - Cystoscopy Smoking Status: Current every day smoker Alcohol: None Drugs: None - Family History Maternal Family History: Family History (Last Reviewed 12/31/19 @ 17:09 by Cony Louis) Mother CVA (cerebral vascular accident) Father Diabetes Heart disease Myocardial infarction Other Anxiety Arthritis Melanoma Respiratory disease Family History: Reports: Heart Disease Review of Systems General: Denies: Chills, Fever, Sweats Eyes: Denies: Visual changes - bilaterally, Diplopia ENT: Denies: Rhinorrhea, Sore throat Cardiovascular: Reports: Chest pain. Denies: Palpitations Respiratory: Denies: Dyspnea, Cough, Dyspnea on exertion Gastrointestinal: Reports: Abdominal pain, Nausea, Vomiting. Denies: Diarrhea, Melena, Hematochezia Genitourinary: Denies: Dysuria, Hematuria, Frequency Musculoskeletal: Denies: Back pain, Extremity Pain Skin: Denies: Rash, Wounds Neurological: Denies: Headache, Weakness, Numbness Physical Exam Vital Signs/Narrative: Vital Signs Temp Pulse Resp BP Pulse Ox 01/05/20 13:36 97.8 F 89 23 H 139/124 H 95 Inital Vital Signs reviewed: Yes General: Well nourished, Well developed, No Acute Distress Head: Normocephalic, Atraumatic Eyes: Perrl, EOMI ENT: Moist mucous membranes, No rhinorrhea Neck: Supple, Nontender Cardiovascular: Regular rate, Regular rhythm, No murmurs Respiratory: No distress, CTA bilaterally, Chest nontender Abdomen: Soft, Nondistended, Normal bowel sounds, - - Tenderness to palpation in the upper epigastrium. No rebound or guarding. Back: Nontender, Normal Inspection Extremities: Nontender, No edema Skin: Normal color, No rash Neurological: Alert, Oriented x3, Cranial nerves II-XII grossly intact, Normal Strength, Normal Sensation Psychological: Normal affect, Normal Mood Diagnostic/Tx/Re-eval Clinical Impression(s) from Imaging Studies Chest X-Ray 01/05/20 14:15 IMPRESSION: Scattered calcified granulomas. Electronically Signed: Michael Jacome at 14:28 EDT , Service support , Abdomen/Pelvis CT 01/05/20 15:34 IMPRESSION: 1. No acute findings. 2. Stable fat density right lower lobe nodule, probable hamartoma. 3. Hepatic steatosis. Electronically Signed: Dang Nance MD at 16:53 EDT Tel , Service support , Laboratory Data 01/05/20 01/05/20 13:44 13:44 WBC 13.5 H RBC 4.85 Hgb 14.4 Hct 43.3 MCV 89.3 MCH 29.7 MCHC 33.3 RDW Std Deviation 41.8 RDW Coeff of Saeid 12.8 Plt Count 345 MPV 10.3 Immature Gran % (Auto) 0.500 Neut % (Auto) 67.9 Lymph % (Auto) 25.4 Williams % (Auto) 4.4 Eos % (Auto) 1.6 Baso % (Auto) 0.2 Absolute Neuts (auto) 9.2 H Absolute Lymphs (auto) 3.43 Nucleated RBC % 0 Sodium 139 Potassium 4.0 Chloride 106 Carbon Dioxide 27.0 Anion Gap 6 BUN 11 Creatinine 0.88 Estim Creat Clear Calc 71.88 Est GFR (MDRD) Af Amer 88 Est GFR (MDRD) Non-Af 73 BUN/Creatinine Ratio 12.4 Glucose 133 H Calcium 8.9 Total Bilirubin 0.30 Direct Bilirubin 0.10 AST 17 ALT 34 Alkaline Phosphatase 121 H Troponin I < 0.015 Total Protein 7.4 Albumin 3.4 Globulin 4.0 - Rhythm Strip Rhythm Strip: Sinus Rhythm Rate: 87 Ectopy: None - EKG Initial EKG Interpretation: Sinus Rhythm - Sinus rhythm at 87 bpm. OH interval of 134 ms. QTC of 462 ms. No evidence of ST elevation or depression at this time. - Medical Decision Making Appears well nontoxic. Vital signs within normal limits. EKG shows no evidence of acute ischemia. Troponin negative. Patient symptoms are more consistent with epigastric pain secondary to likely peptic ulcer disease versus gastritis. Lab work does show leukocytosis. She was initially given Zofran as well as fluid and Pepcid. This did not resolve her symptoms. She was then given GI cocktail and Phenergan. CT the abdomen pelvis was done which was negative for acute pathology. Patient is feeling resolution of her symptoms following second treatment modality. Will be discharged home with Pepcid, para fate, and Zofran. She also be given gastroenterologic follow-up. Asked return for new or worsening symptoms. Is scheduled for outpatient stress testing. Patient agreeable and discharged home in stable condition. Impression: 1. Nausea and vomiting 2. Epigastric pain ED Disposition - Plan for ED Patient: Disposition: Home or Assisted Living Instructions: ED PEPTIC ULCER vs GASTRITIS Prescriptions: Sucralfate [Carafate] 1 gm PO 4X/DAY #56 tab Prescription Printed Famotidine [Pepcid] 20 mg PO BID #28 tab Prescription Printed Ondansetron [Zofran Odt] 4 mg PO Q8H PRN PRN #10 tab PRN Reason: Nausea Prescription Printed Referrals: Ezequiel Lepe MD [Primary Care Provider] - Chiki Maxwell MD [STAFF PHYSICIAN] -
[2020-01-05 14:44] VITALS: BP 108/68; PULSE 82; RESP 18; O2SAT 100
[2020-01-05] MEDS: Famotidine 200 MG/20 ML MDV 20 MG in 0.9% Normal Saline (Pres. free 8 ML 300 MG IV (14:44)
[2020-01-05 15:25] LABS: AST(SGOT) 17 U/L (15-37); Alanine Aminotransfer ALT/SGPT 34 U/L (13-56); Albumin, Serum 3.4 g/dL (3.2-5.0); Alkaline Phosphatase 121 U/L (45-117); Anion Gap 6 (5-15); BUN 11 mg/dL (7-18); BUN/Creat Ratio 12.4 RATIO (10-20); Calcium,Total 8.9 mg/dL (8.5-10.1); Chloride 106 mmol/L (98-107); Creatinine, Serum 0.88 mg/dL (0.55-1.02); EST Glomerular Filtration Rate 73 mL/min (>60); Est Glom Filt Rate - Afr Amer 88 mL/min (>60); Estimated Creatinine Clearance 71.88 ml/min; Glucose 133 mg/dL (74-106); Protein, Total 7.4 g/dL (6.4-8.2); Sodium Level 139 mmol/L (136-145)
--- NOTE | 2020-01-05 15:34 | CT_ITS ---
STUDY: CT ABDOMEN AND PELVIS WITH CONTRAST REASON FOR EXAM: Female, 44 years old. EPIGASTRIC PAIN/CP X 30MIN RADIATION DOSAGE (If Supplied By Facility): CTDIvol = ( 20.55 ) mGy, DLP = ( 2239.95 ) mGycm TECHNIQUE: Transaxial images were obtained from the dome of the diaphragm to the symphysis pubis without oral contrast. IV 100mL Isovue-300 was administered. Sagittal and coronal images were reconstructed. Individualized dose optimization techniques were used for this CT. COMPARISON: 11/18/2019, CTA chest 08/29/2019.. FINDINGS: Stable 1.5 cm right lower lobe pulmonary nodule. CT density measures -27 Hounsfield units. Heart size is normal. There is diffuse fatty infiltration of the liver. No focal lesion. The gallbladder is unremarkable. The spleen and pancreas are unremarkable. The adrenal glands are normal. The kidneys are unremarkable. No stones or hydronephrosis. The aorta is normal in caliber. There is no free fluid, free air or organized collection. No bowel obstruction or inflammatory change. Normal appendix. Urinary bladder is unremarkable. Normal abdominal wall. Normal osseous structures. CT/Abdomen/Pelvis W IV Cont ONLY IMPRESSION: 1. No acute findings. 2. Stable fat density right lower lobe nodule, probable hamartoma. 3. Hepatic steatosis. Electronically Signed: Dang Nance MD at 16:53 EDT Tel , Service support ,
[2020-01-05] MEDS: proMETHazine 25 MG/ML Syringe 6.25 MG IM (15:40)
[2020-01-05] MEDS: Mag Hydrox/Al Hydrox/Simeth 30 ML UDC PO (15:40)
[2020-01-05 17:47] VITALS: BP 123/84; PULSE 76; RESP 18
== END 2020-01-05 17:50 | disposition home or self-care (01) ==
PROVIDERS: Emergency Provider Emergency Medicine; PCP Internal Medicine
DX: R10.13 Epigastric pain (principal); R11.2 Nausea with vomiting, unspecified; G47.10 Hypersomnia, unspecified; Z87.11 Personal history of peptic ulcer disease; F17.200 Nicotine dependence, unspecified, uncomplicated; Z79.899 Other long term (current) drug therapy
CPT/HCPCS: 71045; 74177; 80048; 80076; 84484; 85025; 93005; 95806; 96361; 96372; 96374; 96375; 99285; J7030; Q9967; J2405; J3490

== ENCOUNTER → 2020-01-06 13:30 | Outpatient (CLI) | payer MEDICARE, MEDICAID, SELFPAY ==
[2019-12-16 13:46] VITALS: BMI 48.1
== END ==
PROVIDERS: PCP Internal Medicine; Visit Provider Internal Medicine
DX: G47.10 Hypersomnia, unspecified (principal)
CPT/HCPCS: 95806

== ENCOUNTER 2020-01-20 07:44 | Day surgery (SDC) | payer MEDICARE, MEDICAID, SELFPAY ==
[2020-01-08 09:37] VITALS: BMI 49.7
--- NOTE | 2020-01-08 10:11 | HP_ITS ---
Intake Vital Signs 01/08/20 Height 5 ft 5 in 01/08/20 Weight: 299 lb 01/08/20 BP 109/77 01/08/20 Blood Pressure Location Rt brachial 01/08/20 Position Sitting 01/08/20 Respiration 16 01/08/20 Pulse 85 01/08/20 Pulse Source Monitor 01/08/20 Temp 97.9 F 01/08/20 Temp Source Temporal 01/08/20 Pulse Oximetry (%) 96 01/08/20 Oxygen Delivery Method room air 01/08/20 BMI 51.7 Intake Visit Reasons: ER F/U PEPTIC ULCER Chief Complaint: hospital f/u [place] Electrolytic Required: No Is patient in pain?: Yes (LUQ/ Epigastric ) Pain scale (1-10): 8 Allergies cefaclor [From Ceclor] Allergy (Verified 01/08/20 09:42) Hives ciprofloxacin Allergy (Verified 01/08/20 09:42) Hives erythromycin base [Erythromycin Base] Allergy (Verified 01/08/20 09:42) Upset Stomach moxifloxacin HCl [From Avelox] Allergy (Verified 01/08/20 09:42) Hives Penicillins Allergy (Verified 01/08/20 09:42) Upset Stomach Medications Albuterol Inhaler [Ventolin Hfa] 2 puff INHALATION Q4H PRN PRN 09/02/13 [History Confirmed 01/08/20] Aripiprazole 2 mg PO DAILY 06/09/19 [History Confirmed 01/08/20] Vilazodone Hydrochloride [Viibryd] 20 mg PO DAILY 06/09/19 [History Confirmed 01/08/20] Ibuprofen 600 mg PO BID 12/28/19 [History Confirmed 01/08/20] Zinc Sulfate (50mg elemental) [Zinc Sulfate] 220 mg PO DAILY 12/28/19 [History Confirmed 01/08/20] Naproxen [Naprosyn] 500 mg PO BID PRN #20 tab 12/29/19 [Rx Confirmed 01/08/20] pantoprazole 40 mg tablet,delayed release 40 mg PO BID #180 tab 12/31/19 [Rx Confirmed 01/08/20] sucralfate 1 gram tablet 1 g PO QACHS #120 tab 12/31/19 [Rx Confirmed 01/08/20] Ondansetron [Zofran Odt] 4 mg PO Q8H PRN PRN #10 tab 01/05/20 [Rx Confirmed 01/08/20] Sucralfate [Carafate] 1 gm PO 4X/DAY #56 tab 01/05/20 [Rx Confirmed 01/08/20] PFSH Medical History COPD (chronic obstructive pulmonary disease) (Chronic) Asthma (Acute) History of mononucleosis (Acute) Cancer of left kidney (Acute) Anxiety and depression (Chronic) GERD (gastroesophageal reflux disease) (Chronic) H/O emotional problems (Inactive) Intestinal ulcer (Inactive) Surgical History Hx of nasal septoplasty (Acute) Hx of prior ablation treatment (Acute) Hx of tonsillectomy (Acute) History of lymph node biopsy (Acute) Hx of cholecystectomy (Acute) History of esophagogastroduodenoscopy (EGD) (Acute) History of ankle surgery (Inactive) History of partial hysterectomy (Inactive) History of sinus surgery (Inactive) History of tonsillectomy (Inactive) Family History Mother CVA (cerebral vascular accident) Thyroid disorder Ulcer Arthritis Father Diabetes Heart disease Myocardial infarction Arthritis Hypertension High cholesterol Skin cancer Son , age 17 Asthma Large B-cell lymphoma Other Anxiety Melanoma Respiratory disease Social History (Updated 01/08/20 @ 10:[address] Chiki Maxwell MD) Smoking Status: Current every day smoker Tobacco: How many years used: 25 alcohol intake: never substance use type: does not use what type of physical activity do you participate in: aerobics frequency: 1-2 times per week HPI HPI Surgical H&P: Yes HPI: RAKESH HEARN, is a 44 F who presents to the office today for Evaluation for endoscopy. Patient was seen at [facility]'s emergency department on 12/29/2019. She was complaining of epigastric pain going up into the left side. She was initially evaluated for chest pain EKG was normal. She had negative troponins and her heart score was 3 which made her low risk. She subsequently was started on a PPI and Carafate but has not noticed any effects from this. She has been having normal stool. She states that she has been drinking a significant amount of coffee and uses a significant amount of NSAIDs secondary to discomfort in her back and ankle area. Patient did have an EGD 10 years ago where she was diagnosed with esophagitis she describes as ulcers in her esophagus and was treated with medications. ROS General General: Yes weight change and fatigue; no appetite, colon cancer, breast cancer or weakness HEENT HEENT: No difficulty swallowing, eye injury, eye surgery, swollen glands or hoarseness Endo Endocrine: No thyroid disease, diabetes mellitus, thyroid cancer, Hair loss, heat intolerance or cold intolerance Skin Skin: No rash or changing moles Musc Musculoskeletal: Yes back problems and arthritis; no rheumatoid arthritis, gout or joint pain Cardio Cardiovascular: No murmur, pacemaker, heart disease, atrial fibrillation, high blood pressure, heart attack, heart stent, palpitations, shortness of breat with exertion or chest pain Psych Psychiatric: Yes depression and anxiety; no hearing voices Resp Respiratory: No shortness of breath, No sleep apnea, Yes cough, Yes COPD, Yes asthma, Yes emphysema, No wheezing Gastro Gastrointestinal: Yes abdominal pain, Yes nausea or vomiting, No diarrhea, No constipation, No blood in stool, Yes acid reflux, No hemorrhoids, No ulcers, No gallbladder problem, No black,tarry stools Boyd Hematologic: No blood thinners, No blood disorders, No bleeding, No anemia, No blood clots Neuro Neurologic: No system reviewed and no additional complaints, except as docu, No as per HPI, No abnormal walking, No abnormal hearing, No abnormal movements, No abnormal speech, No behavioral changes, No burning sensations, No confusion, No seizure-like activity, No unsteadiness, No dizziness, No localized weakness, No frequent falls, No headache(s), No lack of coordination, No loss of vision, No memory loss, No numbness, No other visual disturbances, No radiating pain, No restless legs, No sensory deficit, No fainting, No tingling, No tremor(s), No weakness, No other Exam Const General: no acute distress, well developed, well hydrated Orientation: oriented to person, oriented to place, oriented to time [facility] Head: normocephalic, atraumatic Ears: external ears normal Mouth: moist mucous membranes Eyes Sclera: sclerae normal Pupils: normal by confrontation Neck Neck: no lymphadenopathy noted Neck mass: No Thyroid: thyroid normal, symmetrical Chest Chest palpation & inspection: normal inspection of the chest Resp Effort & Inspection: normal respiratory effort Auscultation: clear to auscultation bilaterally, wheezes expiratory wheezes and left upper Percussion: percussion normal Cardio Rate: regular rate Rhythm: regular rhythm Heart Sounds: no murmurs GI Palpation: soft, no hepatosplenomegaly, no masses, nontender Rectal Exam: other Other: Rectal exam deferred. Extrem General: normal to inspection, no clubbing, cyanosis or edema Assessment & Plan Problems 1. Epigastric abdominal pain R10.13 Plan I have discussed the above with the patient. I have offered the patient esophagogastroduodenoscopy for evaluation. I have explained the risks/benefits of the procedure and described the procedure. I have discussed the risks with the patient, including but not limited to: infection, bleeding, perforation of the GI tract requiring emergency surgery, inability to complete the procedure, injury to any internal organs, complications of anesthesia, etc. - the patient understands and agrees to proceed. I have answered all the patient's questions to the patient's satisfaction and the patient has no further questions. The patient has been given instructions for the colon cleansing preparation. Coding Level of Care Code Off vis,new,level 3 Diagnoses Epigastric abdominal pain R10.13 COVID (Procedure Consent) Procedure Criteria Procedure Criteria: Yes Elective The surgeon/proceduralist and patient have discussed in detail the risk of exposure to and/or potential harm posed by the COVID-19 virus with having a surgery/procedure at this time versus the risk of? delaying the surgery/procedure. It is not possible to know either the risk of delaying the surgery or procedure or chance of getting an infection with perfect accuracy, but a joint decision was made between the patient and the surgeon/proceduralist ?to proceed at this time with the scheduled surgery/procedure as indicated on the consent form. 01/08/20 1011 <Electronically signed by Chiki page MD> Date _ Chiki Maxwell MD I have re-examined the patient. There are no clinical changes since date of exam.
[2020-01-20 08:07] VITALS: BP 132/73; PULSE 85; RESP 16; TEMP 36.6; O2SAT 96; BMI 49.9
[2020-01-20] MEDS: Lactated Ringers 1,000 ML 100 ML IV (08:15)
--- NOTE | 2020-01-20 09:00 | IMM_PTH ---
PATIENT: RAKESH HEARN LOC: EN U#:[id number] AGE/SX: 44/F ROOM: RE01/20/[address]: Dr. Chiki Maxwell MD : 1975 BED: DIS: 01/20/2020 SPEC #: [id number] RECD: 01/20/20 13:31 STATUS: ARIADNA REQ #: [id number] MITCHELL: 01/20/20 09:[address]: Chiki Maxwell DEPT: IMMUNOHISTOCHEMISTRY RECD BY: Ritika Olmos ENTERED: 01/20/20 13:32 SP TYPE: IMMUNO OTHR DR: Dr. Ezequiel Lepe MD Tissues: Stomach, NOS Procedures: H Pylori (initial) PHYSICIAN & INSTITUTION [place] [id number] SPECIMEN INFORMATION: Tissue Source: Antrum biopsy Clinical Info: Peptic ulcer Specimen Number: [id number] CPT code: 20104 METHODOLOGY: Deparaffinized sections of prefer/formalin-fixed tissue or PAP/DQ stained slides are incubated with monoclonal/polyclonal antibodies/oligonucleotide probes. Localization is made via biotin free immunoperoxidase method. Appropriate controls are performed and reacted as expected. Results on target cell population are indicated in the following table: RESULTS: ANTIBODY / CLONE RESULT H Pylori (polyclonal) negative These tests were developed and their performance characteristics determined by [facility]. They may not have been cleared or approved by the U.S. Food and Drug Administration. The FDA has determined that such clearance or approval is not necessary. INTERPRETATION: Antrum biopsy: Negative for Helicobacter pylori organisms. SJ:roxanne 01/21/20
--- NOTE | 2020-01-20 09:00 | EGD_PTH ---
PATIENT: RAKESH HEARN LOC: EN U#:[id number] AGE/SX: 44/F ROOM: RE01/20/[address]: Dr. Chiki Maxwell MD : 1975 BED: DIS: 01/20/2020 SPEC #: [id number] RECD: 01/20/20 10:05 STATUS: ARIADNA KATHY #: [id number] MITCHELL: 01/20/20 09:[address]: Chiki Maxwell DEPT: SURGICAL PATHOLOGY RECD BY: Darvin Stratton ENTERED: 01/20/20 13:30 SP TYPE: EGD BIOPSY OT DR: Dr. Ezequiel Lepe MD Tissues: Gastric mucous membrane Procedures: Surgery Specimen Level IV HEADER OPERATION: [place] PRE-[place] DIAGNOSIS: Peptic ulcer TISSUE SUBMITTED: Antrum biopsy for histo and H. pylori MICROSCOPIC DIAGNOSIS Antrum biopsy: Minimal gastritis. SJ:roxanne 01/21/20 COMMENT The results of immunohistochemistry for Helicobacter pylori will be reported separately ([id number]). MICROSCOPIC DESCRIPTION Slides are reviewed. The specimen shows fragments of gastric mucosa with chronic inflammatory cell infiltrates in the lamina propria consisting of lymphocytes and plasma cells, consistent with minimal chronic gastritis. GROSS DESCRIPTION Received in fixative is one container labeled with the patient's name and designated antrum biopsy. The specimen consists of one irregular fragment of light buckner soft tissue that measures 0.6 x 0.3 x 0.1 cm. The specimen is totally submitted in one cassette. / AM:roxanne 01/20/20 TC:3 CPT: 33324
--- NOTE | 2020-01-20 09:04 | OP.EGD_ITS ---
Patient Name: Odette Burrows Procedure Date: 01/20/2020 8:41 AM Date of : 1975 Age: 44 Procedure: Upper GI endoscopy Indications: Epigastric abdominal pain Providers: Chiki Maxwell MD Referring MD: Ezequiel Lepe MD Medicines: See the Anesthesia note for documentation of the administered medications Patient Profile: This is a 44 year old female. Refer to note in patient chart for documentation of history and physical. Complications: No immediate complications. Procedure: Pre-Anesthesia Assessment: - Prior to the procedure, a History and Physical was performed, and patient medications and allergies were reviewed. The patient's tolerance of previous anesthesia was also reviewed. The risks and benefits of the procedure and the sedation options and risks were discussed with the patient. All questions were answered, and informed consent was obtained. Prior Anticoagulants: The patient has taken no previous anticoagulant or antiplatelet agents. ASA Grade Assessment: II - A patient with mild systemic disease. After reviewing the risks and benefits, the patient was deemed in satisfactory condition to undergo the procedure. After obtaining informed consent, the endoscope was passed under direct vision. Throughout the procedure, the patient's blood pressure, pulse, and oxygen saturations were monitored continuously. The gastroscope was introduced through the mouth, and advanced to the second part of duodenum. The upper GI endoscopy was accomplished without difficulty. The patient tolerated the procedure well. Scope In: 8:53:41 AM Scope Out: 8:57:14 AM Total Procedure Duration Time 0 hours 3 minutes 33 seconds Findings: A small hiatal hernia was present. No biopsies or other specimens were collected for this exam.Patient was noted to have a small hiatal hernia. The GE junction itself although not smooth did not really show any true signs of erythema nor salmon-colored mucosa. I did no biopsies of this area. Localized mildly erythematous mucosa without bleeding was found in the prepyloric region of the stomach. Biopsies were taken with a cold forceps for Helicobacter pylori testing. The examined duodenum was normal. No biopsies or other specimens were collected for this exam. Impression: - Small hiatal hernia. No specimens collected. - Erythematous mucosa in the prepyloric region of the stomach. Biopsied. - Normal examined duodenum. No specimens collected. Recommendation: - Discharge patient to home. - Resume previous diet. - Continue present medications. - Await pathology results. - Perform routine esophageal manometry at appointment to be scheduled. If her epigastric abdominal pain does not improve within 6 weeks of starting her PPI regiment then I think obtaining esophageal manometry studies would be of benefit. Procedure Code(s): --- Professional --- 68567, Esophagogastroduodenoscopy, flexible, transoral; with biopsy, single or multiple Diagnosis Code(s): --- Professional --- K44.9, Diaphragmatic hernia without obstruction or gangrene K31.89, Other diseases of stomach and duodenum R10.13, Epigastric pain CPT copyright 2017 [employer]. All rights reserved. The codes documented in this report are preliminary and upon stem roller review may be revised to meet current compliance requirements. MD Chiki Price MD 01/20/2020 9:03:37 AM This report has been signed electronically. Number of Addenda: 0 Note Initiated On: 01/20/2020 8:41 AM
--- NOTE | 2020-01-20 09:04 | OP.CCLET_ITS ---
01/20/2020 Ezequiel Lepe MD [address] [place] [address] [place] [address] Re : Upper GI endoscopy procedure for Odette Burrows Dear Dr. Lepe This procedure was performed on Monday, January 20, 2020. My impressions and recommendations are as follows: Impressions : - Small hiatal hernia. No specimens collected. - Erythematous mucosa in the prepyloric region of the stomach. Biopsied. - Normal examined duodenum. No specimens collected. Recommendations : - Discharge patient to home. - Resume previous diet. - Continue present medications. - Await pathology results. - Perform routine esophageal manometry at appointment to be scheduled. If her epigastric abdominal pain does not improve within 6 weeks of starting her PPI regiment then I think obtaining esophageal manometry studies would be of benefit. My findings are described in the full procedure note, which is enclosed. If I can be of further assistance, please feel free to contact me at Doctor phone number(s): , Fax: [phone], Work: . Sincerely, MD Chiki Price MD 01/20/2020 9:03:37 AM This report has been signed electronically.
[2020-01-20 09:05] VITALS: BP 111/52; BP 132/73; PULSE 83; RESP 16; TEMP 36.3; O2SAT 95
[2020-01-20 09:10] VITALS: BP 110/67; BP 132/73; PULSE 81; RESP 16; O2SAT 95
[2020-01-20 09:15] VITALS: BP 116/80; BP 132/73; PULSE 83; RESP 16; O2SAT 96
[2020-01-20 09:20] VITALS: BP 129/72; BP 132/73; PULSE 87; RESP 16; TEMP 36.7; O2SAT 98
== END 2020-01-20 09:40 | disposition home or self-care (01) ==
LOC: EN 07:45 → AC 07:46
PROVIDERS: Anesthesiology; PCP Internal Medicine; Referring Provider Internal Medicine; Visit Provider Surgery
PROC: 0DJ08ZZ Inspection of Upper Intestinal Tract, Via Natural or Artificial Opening Endoscopic (ICD-10-PCS; CPT 43235; principal; 2020-01-20 08:55)
DX: K29.70 Gastritis, unspecified, without bleeding (principal); K44.9 Diaphragmatic hernia without obstruction or gangrene; K31.89 Other diseases of stomach and duodenum; K21.9 Gastro-esophageal reflux disease without esophagitis; Z11.59 Encounter for screening for other viral diseases; J44.9 Chronic obstructive pulmonary disease, unspecified; F32.9 Major depressive disorder, single episode, unspecified; F41.9 Anxiety disorder, unspecified; F17.200 Nicotine dependence, unspecified, uncomplicated; Z79.1 Long term (current) use of non-steroidal anti-inflammatories (NSAID); Z85.528 Personal history of other malignant neoplasm of kidney
CPT/HCPCS: 43239; 87635; 88305; 88342; C9803; J7120; J2405; U0003

== ENCOUNTER → 2020-01-29 | Outpatient (CLI) | payer MEDICARE, MEDICAID, SELFPAY ==
[2020-01-27 14:00] VITALS: BMI 49.9
== END | disposition home or self-care (01) ==
LOC: MTDU 09:24
PROVIDERS: PCP Internal Medicine; Visit Provider Physician Assistant
DX: Z20.828 Contact with and (suspected) exposure to other viral communicable diseases (principal); R05 Cough; R06.02 Shortness of breath; R53.83 Other fatigue; M79.10 Myalgia, unspecified site; J02.9 Acute pharyngitis, unspecified; R11.2 Nausea with vomiting, unspecified; R19.7 Diarrhea, unspecified
CPT/HCPCS: 87635; C9803; U0003

== ENCOUNTER 2020-01-31 14:55 | Emergency (ER) | payer MEDICARE, MEDICAID, SELFPAY ==
[2020-01-27 14:00] VITALS: BMI 49.9
[2020-01-31 14:56] VITALS: BP 136/76; PULSE 93; RESP 16; TEMP 36.4; O2SAT 96; BMI 49.9
--- NOTE | 2020-01-31 15:32 | RAD_ITS ---
STUDY: X-RAY - LUMBAR SPINE REASON FOR EXAM: Female, 44 years old. PAIN IN LOWER BACK INTO LEGS WHEN STANDING OR WALKING. NO KNOWN INJURY. TECHNIQUE: 3 view(s) of the lumbar spine were obtained. COMPARISON: 11/12/2019 FINDINGS: Normal lumbar lordosis. There is no substantial scoliosis. There is a normal alignment of the vertebrae. There is multilevel endplate spondylosis of the lumbar vertebrae. There is multi-level degenerative disc disease with multi-level disc space narrowing. There is no demonstrated fracture. The soft tissue structures are unremarkable. RAD/Lumbar Spine 2 or 3 Views IMPRESSION: No compression fracture. Degenerative changes. Stable. Electronically Signed: Jose Oconnell MD (Brooks) at 15:47 EDT , Service support ,
--- NOTE | 2020-01-31 16:12 | ED.DCSUM_ITS ---
- ER Visit Summary Date of Service: 01/31/20 Chief Complaint: Atraumatic low back pain History of Present Illness: The patient is a 44 F history of asthma, COPD, reflux, anxiety and depression, renal tumor. Patient denies back history other than intermittent back pain. No prior back surgery. States the last 3 days he has had lumbar low midline back pain primarily when she is standing or walking. Laying down she feels better. She denies any fever or chills. She denies any trauma. No weakness or numbness to her upper or lower extremities. No bowel or bladder incontinence. No dysuria. No history of prior back surgery. Physical Examination: Middle-aged female no acute distress vital signs stable afebrile. H EENT exam unremarkable. Neck nontender. No lymphadenopathy. Lungs clear to auscultation bilaterally. Heart regular rhythm no murmur. Abdomen is soft obese but nontender. Normal bowel sounds no peritoneal signs. No pulsatile mass. Extremities moves all 4. Neurovascular intact. 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 Normal dorsi plantarflexion. No cauda equina. No saddle anesthesia. Able to lift either leg. Negative straight leg raise bilaterally. Back exam cervical thoracic spine nontender she is no abnormality of the lumbar spine. She has pain there but not reproducible pain with exam. There is no redness or lesions. Neurologically she is awake alert with no focal motor or sensory deficits. Normal motor strength and sensation in both upper and lower extremities. Again no cauda equina. Test Results: Plain films AP lateral lumbar spine read by myself and radiologist shows no acute abnormality. Normal bony structures. Good intervertebral joint space. Emergency Department Course and Treatment: Patient was given 2 [place] here for pain. She and I went over her x-rays. Treatment Plan: Follow-up with her physical therapy appointment later this week. Naprosyn for pain. Follow-up with her primary care physician if not improving may need an MRI. Disposition: Discharge Impression: Acute lumbar back pain uncertain etiology History of anxiety, depression, asthma and reflux This note was generated with Lumoid dictation software. It may contain incorrect words, spelling, and punctuation that were not noted in review of the chart prior to signing ED Disposition - Plan for ED Patient: Referrals: Ezequiel Lepe MD [Primary Care Provider] -
[2020-01-31] MEDS: HYDROcodone Bitartrate/Apap 5/325 Tablet PO (16:15)
--- NOTE | 2020-01-31 16:16 | ED.DEP ---
ED Disposition - Plan for ED Patient: Disposition: Home or Assisted Living Instructions: ED Back Pain Acute or Chronic Prescriptions: Naproxen [Naprosyn] 500 mg PO BID PRN PRN #20 tab PRN Reason: Pain Or Fever Prescription Printed Referrals: Ezequiel Lepe MD [Primary Care Provider] - 3-5 Days Additional Instructions: Follow-up with physical therapy. Follow-up with primary care physician this week if not improving they may need to get an MRI. Your plain films today were unremarkable. Naprosyn for pain. Return if intractable severe pain, fever, weakness of your lower extremities or bowel or bladder incontinence.
[2020-01-31 16:30] VITALS: PULSE 89; RESP 17; O2SAT 97
== END 2020-01-31 16:31 | disposition home or self-care (01) ==
PROVIDERS: Emergency Provider Emergency Medicine; PCP Internal Medicine
DX: M54.5 Low back pain (principal); J44.9 Chronic obstructive pulmonary disease, unspecified; K21.9 Gastro-esophageal reflux disease without esophagitis; F32.9 Major depressive disorder, single episode, unspecified; F41.9 Anxiety disorder, unspecified; Z72.0 Tobacco use; Z79.899 Other long term (current) drug therapy
CPT/HCPCS: 72100; 99283

== ENCOUNTER 2020-02-18 10:22 | Emergency (ER) | payer MEDICARE, MEDICAID, SELFPAY ==
[2020-02-04 15:20] VITALS: BMI 49.9
[2020-02-18 10:24] VITALS: BP 161/97; PULSE 94; RESP 16; TEMP 36.2; O2SAT 98; BMI 49.7
--- NOTE | 2020-02-18 10:31 | ED.RN ---
ekg in triage. d/t pr c/o cp.
--- NOTE | 2020-02-18 11:20 | EKG12_ITS ---
Test Reason : CP Blood Pressure : / mmHG Vent. Rate : 090 BPM Atrial Rate : 090 BPM P-R Int : 134 ms QRS Dur : 074 ms QT Int : 380 ms P-R-T Axes : 068 053 049 degrees QTc Int : 464 ms Normal sinus rhythm Normal ECG Confirmed by SHANTA FRANCO, BIJAL ([id number]), loan expeditor TIM ANTOINE ([id number]) on 02/24/2020 10:57:27 AM Referred By: MERCEDES/MAKAYLA Confirmed By:KURT WOMACK MD
--- NOTE | 2020-02-18 11:20 | ED.VIS.GEN ---
History of Present Illness Chief Complaint: Anxiety Informant: Patient Narrative: 44-year-old female with history of anxiety and depression presenting for the third time to the ED for anxiety and chest pain. She states that she has had 2- work-ups and even had a CTA of the chest due to elevated d-dimer and this was negative. She followed up with her PCP outpatient who told her to just take Vistaril. She is referred her to the bariatric clinic states that they will take care of weight loss as well as psychiatric thinks. She states she took Vistaril this morning and it is not working. She is currently worked up over her daughter's testing that is coming up because she is scared that she will like her son did. No exposure to COVID?19 nor does she have cough, fever, chills, myalgias. She denies cardiac history. She denies history of DVT/PE. Past Medical History - Allergies and Home Meds Allergies/Adverse Reactions: Allergies cefaclor [From Ceclor] Allergy (Verified 02/18/20 10:23) Hives ciprofloxacin Allergy (Verified 02/18/20 10:23) Hives erythromycin base [Erythromycin Base] Allergy (Verified 02/18/20 10:23) Upset Stomach moxifloxacin HCl [From Avelox] Allergy (Verified 02/18/20 10:23) Hives Penicillins Allergy (Verified 02/18/20 10:23) Upset Stomach sulfamethoxazole [From Bactrim] Allergy (Verified 02/18/20 10:23) Unknown trimethoprim [From Bactrim] Allergy (Verified 02/18/20 10:23) Unknown Primary Care Physician: Ezequiel Lepe MD [Primary Care Provider] - Past Medical History: - - Asthma, anxiety, depression, panic disorder Surgical History: cholecystectomy, hysterectomy, - - Cystoscopy Lives: With Family Smoking Status: Current every day smoker Alcohol: None Drugs: None - Family History Maternal Family History: Family History (Last Reviewed 01/27/20 @ 14:00 by Bria Sprague) Mother CVA (cerebral vascular accident) Thyroid disorder Ulcer Arthritis Father Diabetes Heart disease Myocardial infarction Arthritis Hypertension High cholesterol Skin cancer Son Asthma Large B-cell lymphoma Other Anxiety Melanoma Respiratory disease Family History: Reports: Heart Disease Review of Systems General: Denies: Chills, Fever, Sweats Eyes: Denies: Visual changes - bilaterally, Diplopia ENT: Denies: Rhinorrhea, Sore throat Cardiovascular: Reports: Chest pain, Palpitations, Heart racing Respiratory: Reports: Dyspnea. Denies: Cough, Sputum, Dyspnea on exertion Gastrointestinal: Denies: Abdominal pain, Nausea, Vomiting, Diarrhea, Melena, Hematochezia Genitourinary: Denies: Dysuria, Hematuria, Frequency Musculoskeletal: Denies: Back pain, Extremity Pain Skin: Denies: Rash, Wounds Neurological: Denies: Headache, Weakness, Numbness Psych: Reports: Anxiety. Denies: Suicidal thoughts, Suicidal ideations Physical Exam Vital Signs/Narrative: Vital Signs Temp Pulse Resp BP Pulse Ox 02/18/20 10:24 97.2 F L 94 16 161/97 H 98 Diagnostic/Tx/Re-eval - Rhythm Strip Rhythm Strip: Sinus Rhythm Rate: 90 - EKG Initial EKG Interpretation: Sinus Rhythm, No Acute Injury Pattern - Medical Decision Making Patient with history of panic disorder presenting with anxiety attack as well as chest discomfort which is similar to her previous to visit she has had cardiac work-ups for. She has had a CTA as well recently. She states that she was trying to get treated for her anxiety but it is getting worse due to family problems and testing for her children's illness. She was referred to another physician for bariatric surgery who is supposedly supposed to help with her anxiety disorder. Today her EKG is sinus rhythm without signs of ischemia. Chest x-ray is negative. Lab work is all normal. She was given 0.5 mg of Ativan and felt improved. Given her multiple work-ups I do not believe she needs a delta troponin and EKG. I also do not believe she needs a CTA of the chest. He has PERC negative. Patient was amenable to this plan and will follow up with her PCP to get referral to psychiatry or her bariatric surgeon to be treated. Impression: 1. Atypical chest pain 2. Anxiety disorder ED Disposition - Plan for ED Patient: Disposition: Home or Assisted Living Instructions: ED Chest Pain NonCardiac, ED Panic Attack Referrals: Ezequiel Lepe MD [Primary Care Provider] -
[2020-02-18 11:45] VITALS: BP 138/77; PULSE 92; RESP 16; O2SAT 96
[2020-02-18] MEDS: LORazepam 2 MG/ML Syringe 0.5 MG IV (11:46)
[2020-02-18 11:55] LABS: Absolute Lymphocyte Count 2.36 X10^3/uL (0.83-4.51); Absolute Neutrophil Count 8.2 X10^3/uL (2.0-7.7); Basophil# 0.04 X10^3/uL; Basophil% 0.4 % (0-1); Eosinophil# 0.13 X10^3/uL; Eosinophils% 1.1 % (0-5); Hematocrit 43.1 % (37-47); Hemoglobin 14.1 g/dL (12.0-15.0); Lymphocyte # 2.36 X10^3/ul (4.0); Lymphocyte % 20.8 % (19-41); Mean Corp Hgb Conc 32.7 g/dL (32-36); Mean Corpuscular Hgb 29.6 pg (27.0-32.0); Mean Corpuscular Volume 90.4 fL (81-99); Mean Platelet Vol. 9.6 fl (6.2-12.0); Monocyte# 0.54 X10^3/uL; Monocyte% 4.8 % (0-10); NRBC Flagged by Analyzer 0 % (0-5); Neutrophil # 8.22 X10^3/uL (2.7-7.7); Neutrophil % 72.4 % (47-70); Platelet Count 383 K/mm3 (150-450); RBC Distribution Width CV 13.1 % (11.6-14.6); RBC Distribution Width SD 43.2 fl (35.1-43.9); Red Blood Count 4.77 M/mm3 (4.2-5.4); White Blood Count 11.4 K/mm3 (4.4-11.0)
--- NOTE | 2020-02-18 12:00 | RAD_ITS ---
STUDY: X-RAY CHEST REASON FOR EXAM: Female, 44 years old. ANXIETY, CHEST HEAVINESS TECHNIQUE: Single AP portable view of the chest. COMPARISON: 01/05/2020. FINDINGS: There is ill-defined opacity over the lung bases most likely represent overlapping breast tissue not significantly changed since 01/05/2020. There is no demonstrated pleural abnormality. Normal size heart. Normal mediastinum and jalyn. Normal visualized pulmonary arteries. Normal visualized aortic arch and descending thoracic aorta. Normal visualized thoracic spine. Normal visualized ribs, clavicles, and shoulders. There is no demonstrated abnormality of the visualized soft tissue structures of the upper abdomen. RAD/Chest 1 View (Portable) IMPRESSION: Normal x-ray examination of the chest. Electronically Signed: Navarro Durbin, at 12:32 EDT Tel , Service support ,
[2020-02-18 12:09] LABS: Anion Gap 5 (5-15); BUN 17 mg/dL (7-18); BUN/Creat Ratio 19.5 RATIO (10-20); Calcium,Total 8.8 mg/dL (8.5-10.1); Chloride 107 mmol/L (98-107); Creatinine, Serum 0.87 mg/dL (0.55-1.02); EST Glomerular Filtration Rate 74 mL/min (>60); Est Glom Filt Rate - Afr Amer 90 mL/min (>60); Estimated Creatinine Clearance 72.71 ml/min; Glucose 105 mg/dL (74-106); Potassium 4.2 mmol/L (3.5-5.1); Sodium Level 139 mmol/L (136-145)
[2020-02-18 13:33] VITALS: BP 121/69; PULSE 72; RESP 15; O2SAT 98
== END 2020-02-18 13:36 | disposition home or self-care (01) ==
PROVIDERS: Emergency Provider Student in an Organized Health Care Education/Training Program; PCP Internal Medicine
DX: R07.89 Other chest pain (principal); F41.9 Anxiety disorder, unspecified; F32.9 Major depressive disorder, single episode, unspecified; F41.0 Panic disorder [episodic paroxysmal anxiety]; J45.909 Unspecified asthma, uncomplicated; F17.200 Nicotine dependence, unspecified, uncomplicated; Z79.899 Other long term (current) drug therapy
CPT/HCPCS: 71045; 80048; 84484; 85025; 93005; 96374; 99284; A4216

== ENCOUNTER → 2020-02-24 09:47 | Outpatient (CLI) | payer MEDICARE, MEDICAID, SELFPAY ==
[2020-02-18 10:24] VITALS: BMI 49.7
--- NOTE | 2020-02-26 14:31 | STRESSREP ---
Stress Test Report Date: 02/24/2020 Procedure: Exercise tolerance test Indications: Chest pain Consent: Per the patient Procedure: The patient exercised on a Arnoldo protocol for 2 minutes and 9 seconds achieving a peak heart rate of 142 bpm (81% predicted maximal heart rate) with a peak blood pressure 142/68 mmHg and a peak MET capacity of approximately 4.6 MET's. The baseline ECG demonstrated normal sinus rhythm. The peak exercise ECG demonstrated sinus tachycardia with no significant ischemic ST-T changes. [There were no cardiac dysrhythmias pretest, during exercise, or recovery]. The functional capacity was considered significantly decreased for age. The patient had no complaint of chest discomfort during exercise or recovery. The examination was discontinued secondary to back pain, leg pain, dyspnea. Impression: 1. Inability to reach 85% of maximal age-predicted heart rate decreases the sensitivity of this test. 2. Stress test is negative for exercise-induced chest pain. 3. Stress test test is negative for exercise-induced EKG changes of ischemia. 4. Functional capacity is significantly decreased This note was generated with Pythianation software. It may contain incorrect words, spelling, and punctuation that were not noted in checking the note before signing.
== END ==
PROVIDERS: PCP Internal Medicine; Referring Provider Internal Medicine; Visit Provider Internal Medicine
CPT/HCPCS: 93017

== ENCOUNTER → 2020-03-20 12:40 | Outpatient (CLI) | payer MEDICARE, MEDICAID, SELFPAY ==
[2020-03-20 12:51] LABS: Mucous, Urine 0 SEEN /hpf (<or=2+); Squamous Epithelial Cells - UA 0 SEEN /hpf (5-10); White Blood Cells 0 SEEN /hpf (0-5)
[2020-03-20 13:15] LABS: Color, Urine Yellow (Yellow); Glucose, Dipstick Normal (Normal); Ketone-Dipstick Negative (Negative); Leukocyte Esterase-Dipstick Negative /ul (Negative); Nitrite-Dipstick Negative (Negative); Occult Blood-Urine 150 /ul (Negative); Protein-Dipstick Negative (Negative); Urine Bilirubin Dipstick Negative (Negative); Urine Clarity Clear (Clear); Urine Urobilinogen Normal (Normal)
[2020-03-20 13:22] LABS: Bacteria RARE /hpf (None Seen); Red Blood Cells-Urine 0-5 SEEN /hpf (0-5)
== END ==
PROVIDERS: PCP Internal Medicine; Referring Provider Urology; Visit Provider Urology
DX: N39.0 Urinary tract infection, site not specified (principal)
CPT/HCPCS: 81001; 87077; 87086; 87088; 87186

== ENCOUNTER 2020-03-24 07:19 | Day surgery (SDC) | payer MEDICARE, MEDICAID, SELFPAY ==
[2020-02-04 15:20] VITALS: BMI 49.9
[2020-03-24 07:42] VITALS: BP 133/87; PULSE 86; RESP 18; TEMP 37; O2SAT 97; BMI 51.3
[2020-03-24] MEDS: Lactated Ringers 1,000 ML 100 ML IV (07:55)
--- NOTE | 2020-03-24 08:31 | PCM.OPRPT ---
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 Informed consent was obtained including discussion of COVID-19. Patient was taken to the operating room placed on the operating room table. Anesthesia monitored the head, neck, airway, IV access and vital signs throughout the case. Once anesthesia was probably administered the patient was placed into dorsal lithotomy position was prepped and draped in usual sterile fashion. A cystourethroscopy through the urethra was then performed revealing no masses, areas of erythema or lesions within the urinary bladder or the urethra. At this time the left ureteral orifice was intubated with an 8 Hebrew cone-tip catheter. Under fluoroscopic visualization a retrograde pyelogram was performed revealing no evidence of filling defect, hydronephrosis or abnormality. A 0.038 Glidewire and 8.025 Glidewire both passed through the left ureteral orifice into the renal pelvis under fluoroscopic visualization. The 0.025 Glidewire was then used to pass the flexible ureteroscope easily into the renal pelvis. Every calyx was directly visualized and there was no evidence of erythema, bleeding, or mass. No stones or foreign bodies were identified. The ureteroscope was removed under direct visualization and the wires were removed. No injury was identified and the patient was left without a ureteral stent. She was awakened and taken to the recovery room in good condition. There were no complications. Grafts/Implants Used: none - Complications none - Admit VTE Documentation VTE Present on Admission: Yes VTE Mechan Device Prophylaxis: SCD's VTE Pharm Prophylaxis ordered?: No Reason prophylaxis not ordered:: Treatment Not Indicated
[2020-03-24 09:18] VITALS: BP 133/87; BP 135/90; PULSE 102; RESP 40; TEMP 36.4; O2SAT 91
--- NOTE | 2020-03-24 09:18 | PCM.DC.URO ---
Discharge Diet: No Restrictions Discharge Activity: May not drive while taking narcotic pain medications. May resume sexual activity in: No Restrictions, 1 week Call your doctor if you observe: Fever of 101 or Higher, Inability to urinate, Inability to have a bowel movement Allergies/Adverse Reactions: Allergies cefaclor [From Ceclor] Allergy (Verified 02/18/20 10:23) Hives ciprofloxacin Allergy (Verified 02/18/20 10:23) Hives erythromycin base [Erythromycin Base] Allergy (Verified 02/18/20 10:23) Upset Stomach moxifloxacin HCl [From Avelox] Allergy (Verified 02/18/20 10:23) Hives Penicillins Allergy (Verified 02/18/20 10:23) Upset Stomach sulfamethoxazole [From Bactrim] Allergy (Verified 02/18/20 10:) Unknown trimethoprim [From Bactrim] Allergy (Verified 02/18/20 10:) Unknown Medications to take at Discharge albuterol sulfate 90 mcg/actuation breath activated powder inhaler 2 inh INHALATION Q4H PRN 01/27/20 ipratropium 0.5 mg-albuterol 3 mg (2.5 mg base)/3 mL nebulization soln 3 ml INHALATION Q4H PRN 01/27/20 pantoprazole 40 mg tablet,delayed release 40 mg PO BID tab 01/27/20 Aripiprazole [Abilify] 5 mg PO DAILY 03/24/20 Hydrocodone Bitart/Apap 5-325 [[place] 5MG-325MG] 1 tablet PO Q6H PRN PRN 7 Days #5 tablet 03/24/20 Nitrofurantoin Macrocrystal [Nitrofurantoin] 100 mg PO BID 03/24/20 Vilazodone Hydrochloride [Viibryd] 40 mg PO DAILY 03/24/20 The following prescriptions were given: Hydrocodone Bitart/Apap 5-325 [[place] 5MG-325MG] 1 tablet PO Q6H PRN PRN 7 Days #5 tablet PRN Reason: Pain Transmission Status: Sent to [id number] Primary Care Physician: Ezequiel Lepe MD [Primary Care Provider] - Test Results: Test results from this visit will be discussed in further detail at your follow-up appointment, if applicable. Please Follow Up With: Luisa Mendez MD When: call office for appt Proposed Discharge Date: 03/24/20
[2020-03-24 09:30] VITALS: BP 120/84; BP 133/87; PULSE 96; RESP 40; O2SAT 90
[2020-03-24 09:45] VITALS: BP 122/86; BP 133/87; PULSE 87; RESP 16; O2SAT 90
[2020-03-24 10:00] VITALS: BP 120/73; BP 133/87; PULSE 89; RESP 16; TEMP 37.3; O2SAT 94
[2020-03-24] MEDS: Phenazopyridine 95 MG Tablet 190 MG PO (10:31)
[2020-03-24] MEDS: HYDROcodone Bitartrate/Apap 5/325 Tablet PO (10:31)
[2020-03-24 11:02] VITALS: BP 118/77; BP 133/87; PULSE 88; RESP 16; O2SAT 93
== END 2020-03-24 11:16 | disposition home or self-care (01) ==
LOC: SDC 07:19 → AC 07:19
PROVIDERS: PCP Internal Medicine; Referring Provider Urology; Visit Provider Urology
PROC: 0TJ98ZZ Inspection of Ureter, Via Natural or Artificial Opening Endoscopic (ICD-10-PCS; CPT 52352; principal; 2020-03-24 08:40)
DX: R31.0 Gross hematuria (principal); N28.89 Other specified disorders of kidney and ureter; Z20.828 Contact with and (suspected) exposure to other viral communicable diseases; N39.41 Urge incontinence; R35.0 Frequency of micturition; R35.1 Nocturia; N39.3 Stress incontinence (female) (male); J44.9 Chronic obstructive pulmonary disease, unspecified; K21.9 Gastro-esophageal reflux disease without esophagitis; F32.9 Major depressive disorder, single episode, unspecified; F41.9 Anxiety disorder, unspecified; F17.210 Nicotine dependence, cigarettes, uncomplicated; Z79.899 Other long term (current) drug therapy
CPT/HCPCS: 00910; 52351; 76000; 87426; C9803; J7120; C1769; J2405

== ENCOUNTER 2020-03-25 10:49 | Emergency (ER) | payer MEDICARE, MEDICAID, SELFPAY ==
[2020-03-24 07:42] VITALS: BMI 51.3
[2020-03-25 10:50] VITALS: BP 141/76; PULSE 88; RESP 18; TEMP 37.3; O2SAT 96; BMI 51.2
--- NOTE | 2020-03-25 11:22 | EKG12_ITS ---
Test Reason : CP Blood Pressure : / mmHG Vent. Rate : 084 BPM Atrial Rate : 084 BPM P-R Int : 138 ms QRS Dur : 086 ms QT Int : 386 ms P-R-T Axes : 067 064 053 degrees QTc Int : 456 ms Normal sinus rhythm Normal ECG Confirmed by PARTH FRANCO, VÍCTOR ([id number]), newspaper managing editor TIM ANTOINE ([id number]) on 03/29/2020 8:46:27 AM Referred By: CUBA Confirmed By:VÍCTOR ALBA MD
--- NOTE | 2020-03-25 11:31 | ED.DCSUM_ITS ---
History of Present Illness Informant: Patient Narrative: 44-year-old female with past medical history of asthma/COPD, bladder cancer status post tumor removal presents with complaints of flulike illness. She states she woke up this morning with a fever of 101 ?F, chills, dry cough, midsternal chest pain, shortness of breath, and myalgias. She had cystoscopy done yesterday and states he she had a preop Covid test done on Saturday which was negative. Denies loss of taste or smell. Denies abdominal pain, nausea, vomi ting, or diarrhea. No known sick contacts. <Val Pavon - Last Filed: 03/25/20 13:57> <Luke Morgan - Last Filed: 03/25/20 14:02> Chief Complaint: Chest Pain Past Medical History Past Medical History: - - bladder cancer, asthma/COPD Surgical History: cholecystectomy, hysterectomy, - - Cystoscopy Smoking Status: Current every day smoker - Family History Maternal Family History: Family History (Last Reviewed 01/27/20 @ 14:00 by Bria Sprague) Mother CVA (cerebral vascular accident) Thyroid disorder Ulcer Arthritis Father Diabetes Heart disease Myocardial infarction Arthritis Hypertension High cholesterol Skin cancer Son Asthma Large B-cell lymphoma Other Anxiety Melanoma Respiratory disease Family History: Reports: Heart Disease <Val Pavon - Last Filed: 03/25/20 13:57> - Family History Maternal Family History: Family History (Last Reviewed 01/27/20 @ 14:00 by Bria Sprague) Mother CVA (cerebral vascular accident) Thyroid disorder Ulcer Arthritis Father Diabetes Heart disease Myocardial infarction Arthritis Hypertension High cholesterol Skin cancer Son Asthma Large B-cell lymphoma Other Anxiety Melanoma Respiratory disease <Luke Morgan - Last Filed: 03/25/20 14:02> - Allergies and Home Meds Allergies/Adverse Reactions: Allergies cefaclor [From Ceclor] Allergy (Verified 02/18/20 10:23) Hives ciprofloxacin Allergy (Verified 02/18/20 10:23) Hives erythromycin base [Erythromycin Base] Allergy (Verified 02/18/20 10:23) Upset Stomach moxifloxacin HCl [From Avelox] Allergy (Verified 02/18/20 10:23) Hives Penicillins Allergy (Verified 02/18/20 10:23) Upset Stomach sulfamethoxazole [From Bactrim] Allergy (Verified 02/18/20 10:23) Unknown trimethoprim [From Bactrim] Allergy (Verified 02/18/20 10:23) Unknown Primary Care Physician: Ezequiel Lepe MD [Primary Care Provider] - Review of Systems General: Reports: Chills, Malaise. Denies: Fever Eyes: Denies: Visual changes - bilaterally, Diplopia ENT: Denies: Rhinorrhea, Sore throat Cardiovascular: Reports: Chest pain. Denies: Palpitations Respiratory: Reports: Dyspnea, Cough, Sputum. Denies: Dyspnea on exertion Gastrointestinal: Denies: Abdominal pain, Nausea, Vomiting, Diarrhea, Melena, Hematochezia Genitourinary: Denies: Dysuria, Hematuria, Frequency Musculoskeletal: Reports: Myalgias Skin: Denies: Rash, Wounds Neurological: Denies: Headache, Weakness, Numbness <Val Pavon - Last Filed: 03/25/20 13:57> Physical Exam Vital Signs/Narrative: Vital Signs Temp Pulse Resp BP Pulse Ox 03/25/20 10:50 99.2 F H 88 18 141/76 H 96 Inital Vital Signs reviewed: Yes General: Well nourished, Well developed, No Acute Distress Head: Normocephalic, Atraumatic Eyes: Perrl, EOMI ENT: Moist mucous membranes, No rhinorrhea Neck: Supple, Nontender Cardiovascular: Regular rate, Regular rhythm, No murmurs Respiratory: No distress, CTA bilaterally, Chest nontender Abdomen: Soft, Nontender, Nondistended, Normal bowel sounds Back: Normal Inspection Extremities: No edema Skin: Normal color, No rash Neurological: Alert, Oriented x3, Cranial nerves II-XII grossly intact Psychological: Normal affect, Normal Mood <Val Pavon - Last Filed: 03/25/20 13:57> Vital Signs/Narrative: Vital Signs Temp Pulse Resp BP Pulse Ox 03/25/20 12:20 74 18 120/70 100 03/25/20 10:50 99.2 F H 88 18 141/76 H 96 <Luke Morgan - Last Filed: 03/25/20 14:02> Diagnostic/Tx/Re-eval Clinical Impression(s) from Imaging Studies Chest X-Ray 03/25/20 12:00 IMPRESSION: Normal x-ray examination of the chest. Electronically Signed: Michael Jacome, at 12:23 EST , Service support , Laboratory Data 03/25/20 03/25/20 03/25/20 11:33 11:35 11:35 WBC 16.5 H RBC 4.62 Hgb 13.7 Hct 42.1 MCV 91.1 MCH 29.7 MCHC 32.5 RDW Std Deviation 45.2 H RDW Coeff of Saeid 13.5 Plt Count 357 MPV 9.5 Immature Gran % (Auto) 0.500 Neut % (Auto) 70.5 H Lymph % (Auto) 23.8 Brantley % (Auto) 4.5 Eos % (Auto) 0.5 Baso % (Auto) 0.2 Absolute Neuts (auto) 11.6 H Absolute Lymphs (auto) 3.92 Nucleated RBC % 0 Sodium 138 Potassium 3.9 Chloride 105 Carbon Dioxide 26.0 Anion Gap 7 BUN 16 Creatinine 0.85 Estim Creat Clear Calc 74.42 Est GFR (MDRD) Af Amer 92 Est GFR (MDRD) Non-Af 76 BUN/Creatinine Ratio 18.8 Glucose 94 Calcium 8.7 Total Bilirubin 0.30 AST 27 ALT 59 H Alkaline Phosphatase 115 Troponin I < 0.015 < 0.015 Total Protein 7.6 Albumin 3.4 Globulin 4.2 Albumin/Globulin Ratio 0.8 L Urine Color Urine Clarity Urine pH Ur Specific Hector Urine Protein Urine Glucose (UA) Urine Ketones Urine Occult Blood Urine Nitrite Urine Bilirubin Urine Urobilinogen Ur Leukocyte Esterase Urine RBC Urine WBC Ur Squamous Epith Cells Urine Bacteria Urine Mucus 03/25/20 12:15 WBC RBC Hgb Hct MCV MCH MCHC RDW Std Deviation RDW Coeff of Saeid Plt Count MPV Immature Gran % (Auto) Neut % (Auto) Lymph % (Auto) Brantley % (Auto) Eos % (Auto) Baso % (Auto) Absolute Neuts (auto) Absolute Lymphs (auto) Nucleated RBC % Sodium Potassium Chloride Carbon Dioxide Anion Gap BUN Creatinine Estim Creat Clear Calc Est GFR (MDRD) Af Amer Est GFR (MDRD) Non-Af BUN/Creatinine Ratio Glucose Calcium Total Bilirubin AST ALT Alkaline Phosphatase Troponin I Total Protein Albumin Globulin Albumin/Globulin Ratio Urine Color Yellow Urine Clarity Clear Urine pH 6.5 Ur Specific Hector 1.010 Urine Protein Negative Urine Glucose (UA) Normal Urine Ketones Negative Urine Occult Blood 50 H Urine Nitrite Negative Urine Bilirubin Negative Urine Urobilinogen Normal Ur Leukocyte Esterase Negative Urine RBC 0 SEEN Urine WBC 0 SEEN Ur Squamous Epith Cells 0 SEEN Urine Bacteria RARE Urine Mucus 0 SEEN - Rhythm Strip Rhythm Strip: Sinus Rhythm Rate: 84 - Medical Decision Making Patient presented with URI symptoms, cough, and chest pain that started this morning. She appears well nontoxic. Vital signs within normal limits. 100% on room air. Normal heart and lung exam. Labs show nonspecific leukocytosis but otherwise normal. Chest x-ray is negative. EKG normal sinus rhythm with no ischemic changes, troponin negative. Urinalysis showed small amount of blood but no infection. This is expected after cystoscopy done yesterday. Covid test is pending. We discussed that her symptoms are most likely coronavirus and she needs to self quarantine. Symptomatic treatment and Tylenol as needed. Return for worsening shortness of breath. She was agreeable and discharged home in stable condition. <Val Pavon - Last Filed: 03/25/20 13:57> - Medical Decision Making Evaluate the patient with our physician assistant federal public defender. 44-year-old female with URI symptoms and cough. Patient was sent in by her urologist who recently did a cystoscopy on her. Well-appearing middle-aged female no acute distress vital signs stable afebrile. Pulse ox 9% on room air no signs hypoxia. HEENT exam unremarkable. Lungs clear to auscultation. Heart regular rhythm no murmur. Reproducible chest wall pain in her lower sternum most likely chest wall strain from coughing. No subcu air crepitance. Abdomen soft nontender. Mildly obese. Moving all 4 extremities. Calves are nontender without edema or cords. Neurologically wake and alert with no focal motor deficits. Test results EKG normal. Chest x-ray unremarkable. CBC showed an elevated white count but otherwise unremarkable as were the chemistries and troponin. Urologist wanted a urinalysis which were waiting for the results. Covid test pending. Patient be discharged to home. She is rule out Covid. Impression: 1. Acute URI with chest wall pain 2. Rule out Covid <Luke Morgan - Last Filed: 03/25/20 14:02> ED Disposition <Val Pavon - Last Filed: 03/25/20 13:57> <Luke Morgan - Last Filed: 03/25/20 14:02> - Plan for ED Patient: Disposition: Home or Assisted Living Diagnosis: URI (upper respiratory infection), Chest wall discomfort Instructions: ED FUO Adult Referrals: Ezequiel Lepe MD [Primary Care Provider] -
[2020-03-25 11:49] LABS: Absolute Lymphocyte Count 3.92 X10^3/uL (0.83-4.51); Absolute Neutrophil Count 11.6 X10^3/uL (2.0-7.7); Basophil# 0.03 X10^3/uL; Basophil% 0.2 % (0-1); Eosinophil# 0.09 X10^3/uL; Eosinophils% 0.5 % (0-5); Hematocrit 42.1 % (37-47); Hemoglobin 13.7 g/dL (12.0-15.0); Lymphocyte # 3.92 X10^3/ul (4.0); Lymphocyte % 23.8 % (19-41); Mean Corp Hgb Conc 32.5 g/dL (32-36); Mean Corpuscular Hgb 29.7 pg (27.0-32.0); Mean Corpuscular Volume 91.1 fL (81-99); Mean Platelet Vol. 9.5 fl (6.2-12.0); Monocyte# 0.74 X10^3/uL; Monocyte% 4.5 % (0-10); NRBC Flagged by Analyzer 0 % (0-5); Neutrophil # 11.63 X10^3/uL (2.7-7.7); Neutrophil % 70.5 % (47-70); Platelet Count 357 K/mm3 (150-450); RBC Distribution Width CV 13.5 % (11.6-14.6); RBC Distribution Width SD 45.2 fl (35.1-43.9); Red Blood Count 4.62 M/mm3 (4.2-5.4); White Blood Count 16.5 K/mm3 (4.4-11.0)
--- NOTE | 2020-03-25 12:00 | RAD_ITS ---
STUDY: X-RAY CHEST REASON FOR EXAM: Female, 44 years old. COUGH TECHNIQUE: Single AP portable view of the chest. COMPARISON: Comparison is made with prior study dated 02/18/2020. FINDINGS: The lungs are clear and expanded. Scattered calcified granulomas. There is no demonstrated pleural abnormality. Normal size heart. Normal mediastinum and jalyn. Normal visualized pulmonary arteries. Normal visualized aortic arch and descending thoracic aorta. Normal visualized thoracic spine. Normal visualized ribs, clavicles, and shoulders. There is no demonstrated abnormality of the visualized soft tissue structures of the upper abdomen. RAD/Chest 1 View (Portable) IMPRESSION: Normal x-ray examination of the chest. Electronically Signed: Michael Jacome, at 12:23 EST , Service support ,
[2020-03-25 12:07] LABS: ALB/GLOB Ratio 0.8 RATIO (0.9-2.4); AST(SGOT) 27 U/L (15-37); Alanine Aminotransfer ALT/SGPT 59 U/L (13-56); Albumin, Serum 3.4 g/dL (3.2-5.0); Alkaline Phosphatase 115 U/L (45-117); Anion Gap 7 (5-15); BUN 16 mg/dL (7-18); BUN/Creat Ratio 18.8 RATIO (10-20); Calcium,Total 8.7 mg/dL (8.5-10.1); Chloride 105 mmol/L (98-107); Creatinine, Serum 0.85 mg/dL (0.55-1.02); EST Glomerular Filtration Rate 76 mL/min (>60); Est Glom Filt Rate - Afr Amer 92 mL/min (>60); Estimated Creatinine Clearance 74.42 ml/min; Globulin 4.2 g/dL (2.2-4.2); Glucose 94 mg/dL (74-106); Potassium 3.9 mmol/L (3.5-5.1); Protein, Total 7.6 g/dL (6.4-8.2); Sodium Level 138 mmol/L (136-145)
[2020-03-25 12:20] VITALS: BP 120/70; PULSE 74; RESP 18; O2SAT 100
[2020-03-25] MEDS: Ketorolac 15 MG/ML Vial IM (13:15)
[2020-03-25 13:24] LABS: Mucous, Urine 0 SEEN /hpf (<or=2+); Red Blood Cells-Urine 0 SEEN /hpf (0-5); Squamous Epithelial Cells - UA 0 SEEN /hpf (5-10); White Blood Cells 0 SEEN /hpf (0-5)
[2020-03-25 13:27] LABS: Color, Urine Yellow (Yellow); Glucose, Dipstick Normal (Normal); Ketone-Dipstick Negative (Negative); Leukocyte Esterase-Dipstick Negative /ul (Negative); Nitrite-Dipstick Negative (Negative); Occult Blood-Urine 50 /ul (Negative); Protein-Dipstick Negative (Negative); Urine Bilirubin Dipstick Negative (Negative); Urine Clarity Clear (Clear); Urine Urobilinogen Normal (Normal); Urine pH 6.5 (5.0 - 8.0)
[2020-03-25 13:33] LABS: Bacteria RARE /hpf (None Seen)
[2020-03-25 14:05] VITALS: BP 118/68; PULSE 72; RESP 18; O2SAT 99
== END 2020-03-25 14:06 | disposition home or self-care (01) ==
PROVIDERS: Emergency Provider Physician Assistant; PCP Internal Medicine
DX: J06.9 Acute upper respiratory infection, unspecified (principal); R07.89 Other chest pain; J44.9 Chronic obstructive pulmonary disease, unspecified; E66.9 Obesity, unspecified; F17.200 Nicotine dependence, unspecified, uncomplicated; Z79.899 Other long term (current) drug therapy; Z85.51 Personal history of malignant neoplasm of bladder
CPT/HCPCS: 71045; 80053; 81001; 84484; 85025; 87086; 87635; 93005; 96372; 99284; U0003

== ENCOUNTER 2020-04-10 06:56 | Emergency (ER) | payer MEDICARE, MEDICAID, SELFPAY ==
[2020-04-08 08:21] VITALS: BMI 51.2
[2020-04-10 06:57] VITALS: BP 156/98; PULSE 107; RESP 18; TEMP 36.4; O2SAT 98; BMI 53.1
--- NOTE | 2020-04-10 07:15 | CT_ITS ---
STUDY: CT ABDOMEN AND PELVIS WITH CONTRAST REASON FOR EXAM: Female, 44 years old. LT FLANK PAIN/LOSING BLADDER CONTROL. Hx of lt kidney cancer with tumor removal 3 mo. ago. Prior cholecystectomy. Delayed imaging through bladder included RADIATION DOSAGE (If Supplied By Facility): CTDIvol = ( 21.46 ) mGy, DLP = ( 2364.57 ) mGycm TECHNIQUE: Transaxial images were obtained from the dome of the diaphragm to the symphysis pubis without oral contrast. IV 100mL Isovue-370 was administered. Sagittal and coronal images were reconstructed. Individualized dose optimization techniques were used for this CT. COMPARISON: CT abdomen and pelvis dated 10/28/2019. FINDINGS: Stable soft tissue nodule in the right lung base measuring 1.5 cm. The visualized portions of the heart are within normal limits. There is decreased attenuation of the liver consistent with steatosis. There is non-visualization of the gallbladder, which may be secondary to either contraction or a prior cholecystectomy. Normal spleen. Normal pancreas. Normal bilateral adrenal glands. Normal right kidney. Normal left kidney. Normal visualized stomach. Normal small intestine. Normal colon. The appendix is visualized and appears normal. Normal abdominal aorta. Normal inferior vena cava. Normal retroperitoneum. Normal urinary bladder. There is a stable calcification in the anterior aspect of the bladder. Status post hysterectomy. Normal abdominal wall. Normal osseous structures. CT/Abdomen/Pelvis W IV Cont ONLY IMPRESSION: No acute findings. Stable soft tissue nodule in the right lung base. No evidence of urolithiasis or renal obstruction. Electronically Signed: Demetris Sommer DO at 9:10 EST Tel , Service support ,
--- NOTE | 2020-04-10 07:17 | ED.VIS.GEN ---
History of Present Illness Chief Complaint: Complaint Detail of Chief Complaint: Left flank pain and incontinence Informant: Patient Onset: Days - 2 days ago Current Severity: Moderate Maximum Severity: Moderate Narrative: Patient presents secondary to increased left flank pain and urinary incontinence. She has a history of left renal carcinoma. She states the tumor was removed 3 months ago. Earlier this month she had a follow-up cystoscopy that was unremarkable. She reports having increased left flank pain. She does report her doctors recently stopped some of her psychiatric medicines thinking that was causing her increased back pain. Over the past 2 days she reports having incontinence of urine. She denies dysuria. She denies fever or chills. - Past Medical History (1) Neoplasm of renal pelvis Status: Resolved (2) Hiatal hernia with GERD Status: Chronic (3) COPD (chronic obstructive pulmonary disease) Status: Chronic (4) Asthma Status: Acute (5) COPD (chronic obstructive pulmonary disease) Status: Chronic (6) Asthma Status: Chronic Past Medical History - Allergies and Home Meds Allergies/Adverse Reactions: Allergies cefaclor [From Ceclor] Allergy (Verified 04/10/20 06:59) Hives ciprofloxacin Allergy (Verified 04/10/20 06:59) Hives erythromycin base [Erythromycin Base] Allergy (Verified 04/10/20 06:59) Upset Stomach moxifloxacin HCl [From Avelox] Allergy (Verified 04/10/20 06:59) Hives Penicillins Allergy (Verified 04/10/20 06:59) Upset Stomach sulfamethoxazole [From Bactrim] Allergy (Verified 04/10/20 06:59) Unknown trimethoprim [From Bactrim] Allergy (Verified 04/10/20 06:59) Unknown Primary Care Physician: Ezequiel Lepe MD [Primary Care Provider] - Doctors: Dr. Mendez Surgical History: cholecystectomy, hysterectomy, - Smoking Status: Current every day smoker - Family History Maternal Family History: Family History (Last Reviewed 01/27/20 @ 14:00 by Bria Sprague) Mother CVA (cerebral vascular accident) Thyroid disorder Ulcer Arthritis Father Diabetes Heart disease Myocardial infarction Arthritis Hypertension High cholesterol Skin cancer Son Asthma Large B-cell lymphoma Other Anxiety Melanoma Respiratory disease Family History: Reports: Heart Disease Review of Systems General: Denies: Chills, Fever Eyes: Denies: Visual changes - bilaterally ENT: Denies: Bilateral ear pain Cardiovascular: Denies: Chest pain Respiratory: Denies: Dyspnea, Cough Gastrointestinal: Denies: Abdominal pain, Nausea, Vomiting, Diarrhea Genitourinary: Denies: Dysuria Musculoskeletal: Reports: Back pain - Left flank pain. Denies: Extremity Pain Neurological: Denies: Headache Hematologic: Denies: Easy bruising, Easy bleeding Allergy: Denies: Uticaria Physical Exam Vital Signs/Narrative: Vital Signs Temp Pulse Resp BP Pulse Ox 04/10/20 06:57 97.6 F L 107 H 18 156/98 H 98 Inital Vital Signs reviewed: Yes General: Well nourished, Well developed Head: Normocephalic ENT: Moist mucous membranes Neck: Supple Cardiovascular: Regular rate, Regular rhythm Respiratory: No distress, CTA bilaterally Abdomen: Soft, Nontender Back: CVA tenderness Extremities: Nontender Skin: Normal color Neurological: Alert, Oriented x3 Psychological: Normal affect ED Disposition - Plan for ED Patient: Referrals: Ezequiel Lepe MD [Primary Care Provider] -
[2020-04-10 07:39] LABS: Bacteria 0 SEEN /hpf (None Seen); Mucous, Urine 0 SEEN /hpf (<or=2+); Red Blood Cells-Urine 0 SEEN /hpf (0-5); Squamous Epithelial Cells - UA 0 SEEN /hpf (5-10); White Blood Cells 0 SEEN /hpf (0-5)
[2020-04-10 07:43] LABS: Color, Urine Yellow (Yellow); Glucose, Dipstick Normal (Normal); Ketone-Dipstick Negative (Negative); Leukocyte Esterase-Dipstick Negative /ul (Negative); Nitrite-Dipstick Negative (Negative); Occult Blood-Urine 25 /ul (Negative); Protein-Dipstick Negative (Negative); Urine Bilirubin Dipstick Negative (Negative); Urine Clarity Clear (Clear); Urine Urobilinogen Normal (Normal)
[2020-04-10] MEDS: Ondansetron 4 MG/2 ML Vial IV (07:49)
[2020-04-10] MEDS: Morphine 4 MG/ML Syringe IV ×2 (07:49→09:22)
[2020-04-10 08:04] LABS: Absolute Lymphocyte Count 3.01 X10^3/uL (0.83-4.51); Absolute Neutrophil Count 8.2 X10^3/uL (2.0-7.7); Basophil# 0.04 X10^3/uL; Basophil% 0.3 % (0-1); Eosinophil# 0.17 X10^3/uL; Eosinophils% 1.4 % (0-5); Hematocrit 44.4 % (37-47); Hemoglobin 15.1 g/dL (12.0-15.0); Lymphocyte # 3.01 X10^3/ul (4.0); Lymphocyte % 24.8 % (19-41); Mean Corpuscular Hgb 30.6 pg (27.0-32.0); Mean Corpuscular Volume 90.1 fL (81-99); Mean Platelet Vol. 9.5 fl (6.2-12.0); Monocyte# 0.64 X10^3/uL; Monocyte% 5.3 % (0-10); NRBC Flagged by Analyzer 0 % (0-5); Neutrophil % 67.7 % (47-70); Platelet Count 337 K/mm3 (150-450); RBC Distribution Width CV 13.2 % (11.6-14.6); Red Blood Count 4.93 M/mm3 (4.2-5.4); White Blood Count 12.1 K/mm3 (4.4-11.0)
[2020-04-10 08:18] LABS: Anion Gap 4 (5-15); BUN 16 mg/dL (7-18); BUN/Creat Ratio 21.1 RATIO (10-20); Calcium,Total 9.3 mg/dL (8.5-10.1); Chloride 106 mmol/L (98-107); Creatinine, Serum 0.76 mg/dL (0.55-1.02); EST Glomerular Filtration Rate 87 mL/min (>60); Est Glom Filt Rate - Afr Amer 105 mL/min (>60); Estimated Creatinine Clearance 83.23 ml/min; Glucose 106 mg/dL (74-106); Potassium 4.1 mmol/L (3.5-5.1); Sodium Level 139 mmol/L (136-145)
[2020-04-10 09:00] VITALS: BP 111/69
[2020-04-10] MEDS: oxyCODONE 5 MG Tablet PO (09:49)
== END 2020-04-10 10:00 | disposition home or self-care (01) ==
PROVIDERS: Emergency Provider Emergency Medicine; PCP Internal Medicine
DX: R31.9 Hematuria, unspecified (principal); R10.9 Unspecified abdominal pain; F17.200 Nicotine dependence, unspecified, uncomplicated; K21.9 Gastro-esophageal reflux disease without esophagitis; J44.9 Chronic obstructive pulmonary disease, unspecified; Z87.442 Personal history of urinary calculi; Z85.528 Personal history of other malignant neoplasm of kidney
CPT/HCPCS: 74177; 80048; 81001; 85025; 87086; 87088; 96374; 96375; 96376; 99285; Q9967; A4216; J2405

== ENCOUNTER → 2020-04-13 14:11 | Outpatient (CLI) | payer MEDICARE, MEDICAID, SELFPAY ==
[2020-04-13 13:30] VITALS: BMI 52.0
[2020-04-13 16:11] LABS: D-Dimer Quantitative (DVT/PE) 0.62 FEU/ug/m (0.27-0.49)
== END ==
PROVIDERS: PCP Internal Medicine; Referring Provider Nurse Practitioner Family; Visit Provider Nurse Practitioner Family
DX: M79.661 Pain in right lower leg (principal)
CPT/HCPCS: 36415; 85379

== ENCOUNTER → 2020-04-14 09:03 | Outpatient (CLI) | payer MEDICARE, MEDICAID, SELFPAY ==
[2020-04-13 13:30] VITALS: BMI 52.0
--- NOTE | 2020-04-14 09:05 | VDLE_ITS ---
Reason For Study: Swelling RIGHT GSV is normal. CFV is compressible, spontaneous, phasic, competent and demonstrates normal augmentation. FV is compressible, spontaneous, phasic, competent and demonstrates normal augmentation. POP V is compressible, spontaneous, phasic, competent and demonstrates normal augmentation. T/P Trunk is compressible. PTV is compressible. RT PerV is compressible. Nonvascularized structure noted in the right popliteal fossa measures 1.11 x 3.35 cm. Procedure This is a venous duplex using B-mode, color flow and spectral Doppler. Exam performed in department. A preliminary report was called and/or faxed to [facility]. Interpretation Summary There is no evidence of right lower extremity deep vein thrombosis. Right great saphenous vein appears patent and compressible segmentally. 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 Clinical correlation would be appropriate. Ordering Physician: Juan Daniel Marrero Referring Physician: Ezequiel Lepe Performed By: Lacy Mc RVT
== END ==
PROVIDERS: PCP Internal Medicine; Referring Provider Nurse Practitioner Family; Visit Provider Nurse Practitioner Family
DX: M79.661 Pain in right lower leg (principal)
CPT/HCPCS: 93971

== ENCOUNTER 2020-04-26 07:41 | Day surgery (SDC) | payer MEDICARE, MEDICAID, SELFPAY ==
[2020-04-13 13:30] VITALS: BMI 52.0
[2020-04-26] VITALS (7 sets, daily range): BP systolic 121–151; BP diastolic 83–111; PULSE 85–100; RESP 16–18; TEMP 36.5–37.3; O2SAT 96–99; BMI 51.0
[2020-04-26] MEDS: Lactated Ringers 1,000 ML 100 ML IV (08:39)
[2020-04-26] MEDS: Vancomycin IV 1,000 MG/200 ML BAG 200 MG IV (08:40)
--- NOTE | 2020-04-26 08:45 | OP.PCM_ITS ---
Problem List (1) Urgency of micturition Status: Acute (2) Urgency incontinence Status: Acute Report of Operation Date of Procedure: 04/26/20 Pre-Operative Diagnosis: urgency of urination and urge incontinence Post-Operative Diagnosis: same Surgery/Procedure Performed:: Interstim Stage 1 Type of Anesthesia:: MAC Specimen's removed: none Estimated Blood Loss (mL): 5cc Description of Procedure: The patient is a 44yo female with urgency and urge incontinence that has failed conservative treatments. She now presents for Interstim Stage 1 procedure. Informed consent was obtained after discussing the procedure in detail including risks and COVID-19. The patient was taken to the operating room and placed on the operating table in a prone position. All dependent portions were appropriately padded and she was secured to the table. Anesthesia monitored the head, neck, airway, vital signs and IV access throughout the case. Once anesthesia was appropriately administered, the patient was prepped and draped in usual sterile fashion. The procedure was performed using fluoroscopy. The S3 foramen was identified in AP and lateral views. The skin overlying the area was infiltrated with local anesthetic. The S3 foramen was intubated with the needle, and no response was i dentified with stimulation. What was identified as S4 foramen was then tested, and there was good amalia reflex. The guidewire was then inserted through the needle, a skin incision was made, and the dilator was then passed. Once good positioning was seen on fluoroscopy, the lead was inserted and tested. There was good response on all 4 leads with amalia reflex. The lead was left in that position, and confirmed to be good location on AP view. The pocket site was selected and infiltrated with local anesthetic. A skin incision was made followed by a small pocket. Cautery was used for dissection and hemostatic control. The lead was tunneled into the pocket site. The tunneling device was then used to create a location for the lead extension on the contralateral side. The extension was then brought into the pocket and the lead was dried and inserted, secured using the torque wrench. The excess wire was coiled and secured using Prolene free tie. The incisions were then closed with 3-0 inte rrupted vicryl followed by 4-0 subcuticular suturing and then Dermabond. Once closed, the battery was attached and an Opsite and tape were applied. The patient was awakened and taken to the recovery room in good condition. There were no complications during the procedure. Grafts/Implants Used: Interstim Lead and Lead extention - Complications none - Admit VTE Documentation VTE Present on Admission: No VTE Mechan Device Prophylaxis: None VTE Pharm Prophylaxis ordered?: No Reason prophylaxis not ordered:: Treatment Not Indicated
--- NOTE | 2020-04-26 09:55 | RAD_ITS ---
STUDY: X-RAY - PELVIS REASON FOR EXAM: Female, 44 years old. Inter stim therapy TECHNIQUE: One view of the pelvis was obtained. COMPARISON: None. FINDINGS: Intraoperative imaging was provided. The tip of the electrode is in the slightly left posterior aspect of the pelvis. RAD/Pelvis 1 or 2 Views IMPRESSION: The tip of the electrode is in the posterior aspect of the left hemipelvis. Electronically Signed: Michael Jacome, at 12:39 EST , Service support ,
[2020-04-26] MEDS: Lidocaine 1% /Epi 1:100 (20ml) 20 ML Vial (10:01)
--- NOTE | 2020-04-26 11:41 | DCINST_ITS ---
Discharge Diet: No Restrictions Discharge Activity: May Not Shower May resume sexual activity in: 3 weeks Call your doctor if your incision/area has: Continuous Slow Oozing, Sudden Increased Bleeding, Increased Pain/ Swelling, Increased Redness, Foul Smelling Discharge, Swelling at the incision site Call your doctor if you observe: Fever of 101 or Higher, Inability to urinate, Inability to have a bowel movement, Uncontrolled pain Allergies/Adverse Reactions: Allergies cefaclor [From Ceclor] Allergy (Verified 04/26/20 08:10) Hives ciprofloxacin Allergy (Verified 04/26/20 08:10) Hives erythromycin base [Erythromycin Base] Allergy (Verified 04/26/20 08:10) Upset Stomach moxifloxacin HCl [From Avelox] Allergy (Verified 04/26/20 08:10) Hives Penicillins Allergy (Verified 04/26/20 08:10) Upset Stomach sulfamethoxazole [From Bactrim] Allergy (Verified 04/26/20 08:10) Unknown trimethoprim [From Bactrim] Allergy (Verified 04/26/20 08:10) Unknown Medications to take at Discharge albuterol sulfate 90 mcg/actuation breath activated powder inhaler 2 inh INHALATION Q4H PRN 01/27/20 pantoprazole 40 mg tablet,delayed release 40 mg PO BID tab 01/27/20 RX: Ondansetron [Zofran Odt] 4 mg PO Q8H PRN PRN #14 tab 04/10/20 RX: Amitriptyline HCl [Elavil] 25 mg PO QHS 04/20/20 Oxycodone HCl/Acetaminophen [Percocet 5/325] 1 tab PO Q8H PRN PRN 7 Days #15 tab 04/26/20 RX: Doxycycline Monohydrate 100 mg PO BID 3 Days #6 tab 04/26/20 The following prescriptions were given: RX: Doxycycline Monohydrate 100 mg PO BID 3 Days #6 tab Transmission Status: Received by [facility] Oxycodone HCl/Acetaminophen [Percocet 5/325] 1 tab PO Q8H PRN PRN 7 Days #15 tab PRN Reason: Pain Transmission Status: Received by [facility] Primary Care Physician: Ezequiel Lepe MD [Primary Care Provider] - Test Results: Test results from this visit will be discussed in further detail at your follow- up appointment, if applicable. Please Follow Up With: Luisa Mendez MD When: 1 week in office, call for appt Proposed Discharge Date: 04/26/20
== END 2020-04-26 12:06 | disposition home or self-care (01) ==
LOC: SDC 07:44 → AC 07:44
PROVIDERS: PCP Internal Medicine; Referring Provider Urology; Visit Provider Urology
PROC: (CPT 64581; principal; 2020-04-26 09:30)
DX: N39.41 Urge incontinence (principal); R35.0 Frequency of micturition; R35.1 Nocturia; Z20.828 Contact with and (suspected) exposure to other viral communicable diseases; K21.9 Gastro-esophageal reflux disease without esophagitis; F32.9 Major depressive disorder, single episode, unspecified; F41.9 Anxiety disorder, unspecified; F17.210 Nicotine dependence, cigarettes, uncomplicated; Z85.528 Personal history of other malignant neoplasm of kidney
CPT/HCPCS: 00630; 64581; 72170; 76000; 87426; C9803; J7120

== ENCOUNTER 2020-05-10 05:53 | Day surgery (SDC) | payer MEDICARE, MEDICAID, SELFPAY ==
[2020-04-26 08:11] VITALS: BMI 51.0
[2020-05-10] VITALS (8 sets, daily range): BP systolic 107–128; BP diastolic 52–90; PULSE 86–96; RESP 16; TEMP 36.1–36.9; O2SAT 95–100; BMI 52.3
[2020-05-10] MEDS: Lactated Ringers 1,000 ML 100 ML IV (06:57)
[2020-05-10] MEDS: Vancomycin IV 1,000 MG/200 ML BAG 200 MG IV (07:35)
[2020-05-10] MEDS: Lidocaine 1%/Epi 1:200 (30ml) 30 ML AMPUL (07:41)
--- NOTE | 2020-05-10 08:29 | PCM.OPRPT ---
Problem List (1) Urgency of micturition Status: Acute (2) Urgency incontinence Status: Acute Report of Operation Date of Procedure: 05/10/20 Pre-Operative Diagnosis: Urinary urgency, urinary frequency Post-Operative Diagnosis: Same Surgery/Procedure Performed:: InterStim stage II Type of Anesthesia:: MAC Estimated Blood Loss (mL): 5 cc Description of Procedure: The patient is a 44-year-old female who has had successful management of her urinary frequency and urgency with a stage I InterStim and now presents for implantation of the IPG. Informed consent was obtained including a discussion of the risks of COVID-19. The patient was taken to the operating room and placed in a prone position on the operating room table. She was appropriately padded and secured to the table. Anesthesia monitored the head, neck, airway, IV access and vital signs throughout the case. Once anesthesia was appropriately administered the patient was prepped and draped in usual sterile fashion. The previous incision in the right buttocks was infiltrated laterally with local anesthetic. Incision was then opened using a knife and hemostat with care being taken to avoid damage to the InterStim lead. The lead extension was brought into the operative field and was cut. The lead extension was pulled from under the drape. The remaining portion of the lead extension including the boot was removed from the lead using the torque wrench. The pocket site was enlarged using blunt dissection and Bovie cautery for hemostasis. At this time the lead was dried and inserted into the IPG and secured using the torque wrench. The IPG was then placed into the pocket and impedances were checked and found to be appropriate. At this time the pocket was closed in 2 layers with 3-0 Vicryl interrupted suture followed by 4-0 subcuticular closure of the skin. Skin glue was then applied and allowed to dry. The patient was awakened and taken to the recovery room in good condition. There were no complications during the procedure. Grafts/Implants Used: [employer] InterStim IPG - Complications None - Admit VTE Documentation VTE Present on Admission: Yes VTE Mechan Device Prophylaxis: SCD's VTE Pharm Prophylaxis ordered?: No Reason prophylaxis not ordered:: Treatment Not Indicated
--- NOTE | 2020-05-10 08:36 | DCINST_ITS ---
Discharge Diet: No Restrictions Discharge Activity: May not drive while taking narcotic pain medications., May Shower May resume sexual activity in: 1 week Call your doctor if your incision/area has: Continuous Slow Oozing, Sudden Increased Bleeding, Increased Pain/ Swelling, Increased Redness, Foul Smelling Discharge, Swelling at the incision site Call your doctor if you observe: Fever of 101 or Higher, Inability to urinate, Inability to have a bowel movement, Calf discomfort, Uncontrolled pain Allergies/Adverse Reactions: Allergies cefaclor [From Ceclor] Allergy (Verified 05/10/20 06:21) Hives ciprofloxacin Allergy (Verified 05/10/20 06:21) Hives erythromycin base [Erythromycin Base] Allergy (Verified 05/10/20 06:21) Upset Stomach moxifloxacin HCl [From Avelox] Allergy (Verified 05/10/20 06:21) Hives Penicillins Allergy (Verified 05/10/20 06:21) Upset Stomach sulfamethoxazole [From Bactrim] Allergy (Verified 05/10/20 06:21) Unknown trimethoprim [From Bactrim] Allergy (Verified 05/10/20 06:21) Unknown Medications to take at Discharge albuterol sulfate 90 mcg/actuation breath activated powder inhaler 2 inh INHALATION Q4H PRN 01/27/20 pantoprazole 40 mg tablet,delayed release 40 mg PO BID tab 01/27/20 Amitriptyline HCl [Elavil] 25 mg PO QHS 04/20/20 Cephalexin [Keflex] 500 mg PO Q12 3 Days #6 cap 05/10/20 Oxycodone HCl/Acetaminophen [Percocet 5/325] 1 tablet PO Q8H PRN PRN 7 Days #10 tablet 05/10/20 The following prescriptions were given: Cephalexin [Keflex] 500 mg PO Q12 3 Days #6 cap Transmission Status: Pending to [facility] Oxycodone HCl/Acetaminophen [Percocet 5/325] 1 tablet PO Q8H PRN PRN 7 Days #10 tablet PRN Reason: Pain Transmission Status: Sent to [facility] Primary Care Physician: Ezequiel Lepe MD [Primary Care Provider] - Test Results: Test results from this visit will be discussed in further detail at your follow- up appointment, if applicable. Please Follow Up With: Luisa Mendez MD When: call office for appt in 4 weeks Proposed Discharge Date: 05/10/20
[2020-05-10] MEDS: oxyCODONE 5 MG Tablet PO (08:57)
[2020-05-10] MEDS: Acetaminophen 325 MG Tablet PO (08:57)
== END 2020-05-10 09:31 | disposition home or self-care (01) ==
LOC: SDC 05:54 → AC 05:54
PROVIDERS: PCP Internal Medicine; Referring Provider Urology; Visit Provider Urology
PROC: (CPT 64590; principal; 2020-05-10 07:20)
DX: N39.41 Urge incontinence (principal); R35.0 Frequency of micturition; R35.1 Nocturia; Z20.828 Contact with and (suspected) exposure to other viral communicable diseases; J44.9 Chronic obstructive pulmonary disease, unspecified; K21.9 Gastro-esophageal reflux disease without esophagitis; F32.9 Major depressive disorder, single episode, unspecified; F41.9 Anxiety disorder, unspecified; F17.210 Nicotine dependence, cigarettes, uncomplicated; Z79.899 Other long term (current) drug therapy
CPT/HCPCS: 64590; 87426; C9803; J7120; A4216; C1767

== ENCOUNTER → 2020-05-27 15:23 | Outpatient (CLI) | payer MEDICARE, MEDICAID, SELFPAY ==
[2020-05-10 06:22] VITALS: BMI 52.3
--- NOTE | 2020-05-27 15:27 | US_ITS ---
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 # of images incl. paperwork: 30 COMPARISON: None. FINDINGS: There is a superficial subcutaneous ill-defined area of focal abnormality with areas of decreased echogenicity interspersed with isoechoic regions, measuring approximately 1.2 x 1.0 x 1.2 cm. No abnormal vascularity is seen associated with this region. US/Ext Non Vasc Limited/Soft Tiss IMPRESSION: 1. Superficial ill-defined focal abnormality subjacent to area of interest subjacent to scar measuring 1.2 x 1.0 x 1.2 cm. As to whether this represents hematoma versus abscess cannot be determined with certainty; alternatively, this may represent an area of scarring. Correlate clinically. at [id number] Reported and signed by: Ralph Pope MD Electronically Signed: Ralph Pope MD at 21:35 EST Tel , Service support ,
== END ==
PROVIDERS: PCP Internal Medicine; Referring Provider Urology; Visit Provider Urology
DX: R52 Pain, unspecified (principal); Z98.890 Other specified postprocedural states
CPT/HCPCS: 76882

== ENCOUNTER 2020-06-03 13:39 | Emergency (ER) | payer MEDICARE, MEDICAID, SELFPAY ==
[2020-05-10 06:22] VITALS: BMI 52.3
[2020-06-03 13:44] VITALS: BP 153/94; PULSE 90; RESP 20; TEMP 37.2; O2SAT 98; BMI 53.4
--- NOTE | 2020-06-03 13:52 | EKG12_ITS ---
Test Reason : CP Blood Pressure : / mmHG Vent. Rate : 096 BPM Atrial Rate : 096 BPM P-R Int : 128 ms QRS Dur : 072 ms QT Int : 372 ms P-R-T Axes : 062 053 050 degrees QTc Int : 469 ms Normal sinus rhythm Normal ECG Confirmed by PARTH FRANCO, VÍCTOR ([id number]), editorial intern ROMEO SADLER ([id number]) on 06/07/2020 10:51:18 AM Referred By: FARHAT/CHLOE Confirmed By:VÍCTOR ALBA MD
[2020-06-03 13:53] VITALS: O2SAT 97
--- NOTE | 2020-06-03 13:53 | ED.DCSUM_ITS ---
History of Present Illness Chief Complaint: Chest Pain Informant: Patient Onset: Yesterday Context: Sudden Onset Timing: Intermittent Quality: Pressure Location: Epigastrium Current Severity: Mild Maximum Severity: Severe Worsened by: Nothing Relieved by: Nothing Associated Symptoms: Shortness of breath Narrative: Patient is a middle-age woman who was sent to the emergency department by her PCP because of chest pressure. She localized the pain in the epigastric area. She has not taken anything for the discomfort. The pain is not positional or related to exertion. Episodes of occurred at rest. She states she has had jaw pain when she is experiencing the epigastric pain. She does have history of hiatal hernia and reflux. She states she is on omeprazole and is compliant with her medicine. She denies history of VTE. She denies leg discoloration or pain. She has had swelling for several months. She denies orthopnea or PND. She denies pleuritic chest pain. She does have a cough which is occasionally productive. This is not new she does have history of COPD. She states she smokes 1 pack/day. She has smoked for 25 years. She had surgery because of a lesion noted on her kidney. She states the lesion broke apart and was told that they could not determine what the lesion was. She has not received chemo or radiation therapy. The surgery was several months ago. She denies fever, chills night sweats. She denies weight gain or weight loss. She denies ocular, visual or auditory symptoms. She denies black or maroon stool. She denies urologic symptoms. She denies neurologic symptoms. Prior similar symptoms: Yes - Per review of old records Recent Illness/Hospitalization: No - Past Medical History (1) Neoplasm of renal pelvis Status: Resolved (2) Hiatal hernia with GERD Status: Chronic (3) COPD (chronic obstructive pulmonary disease) Status: Chronic (4) Hx of cholecystectomy Status: Acute Comment: 07/2019 (5) Chest pain Status: Acute (6) Tobacco abuse Status: Chronic (7) Obesity Status: Chronic (8) Chronic neutrophilia Status: Chronic (9) Anxiety and depression Status: Chronic Past Medical History - Allergies and Home Meds Allergies/Adverse Reactions: Allergies cefaclor [From Ceclor] Allergy (Verified 06/03/20 13:40) Hives ciprofloxacin Allergy (Verified 06/03/20 13:40) Hives erythromycin base [Erythromycin Base] Allergy (Verified 06/03/20 13:40) Upset Stomach moxifloxacin HCl [From Avelox] Allergy (Verified 06/03/20 13:40) Hives Penicillins Allergy (Verified 06/03/20 13:40) Upset Stomach sulfamethoxazole [From Bactrim] Allergy (Verified 06/03/20 13:40) Unknown trimethoprim [From Bactrim] Allergy (Verified 06/03/20 13:40) Unknown Primary Care Physician: Ezequiel Lpee MD [Primary Care Provider] - Surgical History: cholecystectomy, hysterectomy, - Lives: Spouse/ Significant Other Smoking Status: Heavy Smoker (>10/day) Alcohol: None Drugs: None - Family History Maternal Family History: Family History (Last Reviewed 04/13/20 @ 13:37 by Trudi Negrete) Mother CVA (cerebral vascular accident) Thyroid disorder Ulcer Arthritis Father Diabetes Heart disease Myocardial infarction Arthritis Hypertension High cholesterol Skin cancer Son Asthma Large B-cell lymphoma Other Anxiety Melanoma Respiratory disease Family History: Reports: Heart Disease Review of Systems General: Denies: Chills, Fever, Malaise, Subjective, Sweats Eyes: Denies: Visual changes - bilaterally, Blurred Vision - bilaterally, Diplopia ENT: Denies: Left ear pain, Right ear pain, Rhinorrhea, Sore throat Cardiovascular: Reports: Chest pain. Denies: Palpitations, Heart racing Respiratory: Reports: Dyspnea, Cough, Sputum. Denies: Dyspnea on exertion, Orthopnea, Paroxysmal nocturnal dyspnea Gastrointestinal: Denies: Abdominal pain, Nausea, Vomiting, Diarrhea, Melena, Hematochezia Genitourinary: Denies: Dysuria, Hematuria, Frequency Musculoskeletal: Reports: Swelling. Denies: Myalgias, Arthralgias, Neck pain, Back pain, Extremity Pain, -, - Skin: Denies: Rash, Wounds Neurological: Reports: Headache - Headache is global. It is not positional. There is no photophobia, neck pain or neck stiffness.. Denies: Parasthesia Psych: Reports: Depression, Anxiety Endocrine: Denies: Polyuria, Polydipsia Hematologic: Denies: Easy bruising Physical Exam Vital Signs/Narrative: Vital Signs Temp Pulse Resp BP Pulse Ox 06/03/20 13:44 99.0 F 90 20 H 153/94 H 98 Inital Vital Signs reviewed: Yes General: Well nourished, Well developed, Obese, No Acute Distress Head: Normocephalic, Atraumatic Eyes: Perrl, EOMI. Negative for: Pale conjunctiva, Scleral icterus ENT: Moist mucous membranes, No rhinorrhea. Negative for: Nasal congestion, Sinus tenderness Neck: Supple, Nontender, No lymphadenopathy, No JVD Cardiovascular: Regular rate, Regular rhythm, No murmurs, Normal S1, Normal S2 Respiratory: No distress, CTA bilaterally, Chest nontender Abdomen: Soft, Nondistended, Normal bowel sounds, Tender - Epigastrium Rectal: Deferred Back: Nontender, Normal Inspection Extremities: Nontender, No edema, - - There is no asymmetry, swelling, discoloration, leg vein distention, palpable cords or tenderness along the distribution of the deep venous system.. Negative for: Tenderness, Edema, Calf Tenderness Skin: Normal color, No rash, No Trauma. Negative for: Cyanosis, Diaphoresis, Jaundice Neurological: Alert, Oriented x3, Cranial nerves II-XII grossly intact, Normal Strength, Normal Sensation Psychological: Depressed, - - Affect is flat. Diagnostic/Tx/Re-eval Chest X-Ray - ED: 2 View, Read by ED Physician, Normal, Heart, Lungs, Mediastinum, Bony Structures, No Acute Disease, - - Chest x-ray was interpreted by me at 05/16/2000 Impressions Chest X-Ray 06/03/20 14:00 IMPRESSION: No acute abnormality is seen. Electronically Signed: Michael Jacome MD at 14:13 EST , Service support , 06/03/20 14:00 Chest PA and Lateral [RAD] Stat Laboratory Results 06/03/20 06/03/20 14:00 14:00 WBC 12.7 H RBC 5.04 Hgb 14.5 Hct 44.7 MCV 88.7 MCH 28.8 MCHC 32.4 RDW Std Deviation 41.9 RDW Coeff of Saeid 12.9 Plt Count 371 MPV 9.7 Immature Gran % (Auto) 0.500 Neut % (Auto) 62.2 Lymph % (Auto) 29.8 Rains % (Auto) 5.5 Eos % (Auto) 1.7 Baso % (Auto) 0.3 Absolute Neuts (auto) 7.9 H Absolute Lymphs (auto) 3.78 Nucleated RBC % 0 Sodium 137 Potassium 4.0 Chloride 106 Carbon Dioxide 26.0 Anion Gap 5 BUN 15 Creatinine 0.77 Estim Creat Clear Calc 81.27 Est GFR (MDRD) Af Amer 104 Est GFR (MDRD) Non-Af 86 BUN/Creatinine Ratio 19.5 Glucose 95 Calcium 8.4 L Troponin I < 0.015 - EKG Initial EKG Interpretation: Sinus Rhythm - Sinus rhythm with ventricular rate of 96. IA interval is 128 ms. QS duration 72 ms. QT duration 372 ms. The axis is normal. The EKG is normal. This was obtained with discomfort. Prior: Unchanged - Medical Decision Making Frontal diagnosis would include cardiac etiology, GERD, esophageal spasm, esophagitis, gastritis. Patient has no pleuritic pain no recent surgery and per her recollection she she was told she did not have a malignancy of her kidney. Will review prior records. Since she has discomfort in the epigastrium with history of GERD and GERD can refer pain to the jaw?she received a mixture of Maalox and viscous Xylocaine. I was informed at 1520 that patient still having pain. My suspicion is this is GI and not cardiac or respiratory. IV Pepcid was ordered. Patient declined the IV Pepcid and Toradol. She wished to go home. I did inform her that it is my opinion that this is related to her reflux. She was discharged with appropriate home-going instructions. ED Disposition - Plan for ED Patient: Disposition: Home or Assisted Living Diagnosis: Chest pain due to gastrointestinal reflux disease, Cephalgia Instructions: ED GERD (Adult), Lifestyle Changes for Controlling GERD Referrals: Ezequiel Lepe MD [Primary Care Provider] - 3-5 Days if not improving
[2020-06-03] MEDS: Mag Hydrox/Al Hydrox/Simeth 30 ML UDC PO (13:57)
--- NOTE | 2020-06-03 14:00 | RAD_ITS ---
STUDY: X-RAY CHEST REASON FOR EXAM: Female, 45 years old. MID CHEST PAIN. FATIGUE. HEADACHE. TECHNIQUE: PA and lateral views of the chest. COMPARISON: Comparison is made with prior examination 03/25/2020. FINDINGS: EKG electrodes are seen. The lungs are clear and expanded. There is no demonstrated pleural abnormality. Normal size heart. Normal mediastinum and jalyn. Normal visualized pulmonary arteries. Normal visualized aortic arch and descending thoracic aorta. There are mild degenerative changes of the visualized thoracic spine. Normal visualized ribs, clavicles, and shoulders. There is no demonstrated abnormality of the visualized soft tissue structures of the upper abdomen. RAD/Chest PA and Lateral IMPRESSION: No acute abnormality is seen. Electronically Signed: Michael Jacome MD at 14:13 EST , Service support ,
[2020-06-03] MEDS: Acetaminophen 325 MG Tablet 650 MG PO (14:06)
[2020-06-03 14:14] LABS: Absolute Lymphocyte Count 3.78 X10^3/uL (0.83-4.51); Absolute Neutrophil Count 7.9 X10^3/uL (2.0-7.7); Basophil# 0.04 X10^3/uL; Basophil% 0.3 % (0-1); Eosinophil# 0.21 X10^3/uL; Eosinophils% 1.7 % (0-5); Hematocrit 44.7 % (37-47); Hemoglobin 14.5 g/dL (12.0-15.0); Lymphocyte # 3.78 X10^3/ul (4.0); Lymphocyte % 29.8 % (19-41); Mean Corp Hgb Conc 32.4 g/dL (32-36); Mean Corpuscular Hgb 28.8 pg (27.0-32.0); Mean Corpuscular Volume 88.7 fL (81-99); Mean Platelet Vol. 9.7 fl (6.2-12.0); Monocyte% 5.5 % (0-10); NRBC Flagged by Analyzer 0 % (0-5); Neutrophil # 7.89 X10^3/uL (2.7-7.7); Neutrophil % 62.2 % (47-70); Platelet Count 371 K/mm3 (150-450); RBC Distribution Width CV 12.9 % (11.6-14.6); RBC Distribution Width SD 41.9 fl (35.1-43.9); Red Blood Count 5.04 M/mm3 (4.2-5.4); White Blood Count 12.7 K/mm3 (4.4-11.0)
[2020-06-03 14:38] LABS: Anion Gap 5 (5-15); BUN 15 mg/dL (7-18); BUN/Creat Ratio 19.5 RATIO (10-20); Calcium,Total 8.4 mg/dL (8.5-10.1); Chloride 106 mmol/L (98-107); Creatinine, Serum 0.77 mg/dL (0.55-1.02); EST Glomerular Filtration Rate 86 mL/min (>60); Est Glom Filt Rate - Afr Amer 104 mL/min (>60); Estimated Creatinine Clearance 81.27 ml/min; Glucose 95 mg/dL (74-106); Sodium Level 137 mmol/L (136-145)
[2020-06-03 15:18] VITALS: BP 133/72; PULSE 88; RESP 17; O2SAT 98
[2020-06-03 16:04] VITALS: BP 122/72; PULSE 80; RESP 16; O2SAT 97
== END 2020-06-03 16:09 | disposition home or self-care (01) ==
PROVIDERS: Emergency Provider Emergency Medicine; PCP Internal Medicine
DX: K21.9 Gastro-esophageal reflux disease without esophagitis (principal); R51.9 Headache, unspecified; K44.9 Diaphragmatic hernia without obstruction or gangrene; R68.84 Jaw pain; J44.9 Chronic obstructive pulmonary disease, unspecified; F32.9 Major depressive disorder, single episode, unspecified; F41.9 Anxiety disorder, unspecified; E66.9 Obesity, unspecified; F17.210 Nicotine dependence, cigarettes, uncomplicated; Z79.899 Other long term (current) drug therapy
CPT/HCPCS: 71046; 80048; 84484; 85025; 93005; 99285; A4216; J3490

== ENCOUNTER 2020-06-05 10:58 | Emergency (ER) | payer MEDICARE, MEDICAID, SELFPAY ==
[2020-06-05 10:58] VITALS: BP 152/99; PULSE 86; RESP 17; TEMP 36.2; O2SAT 96; BMI 52.4
--- NOTE | 2020-06-05 11:11 | EKG12_ITS ---
Test Reason : HEADACHE Blood Pressure : / mmHG Vent. Rate : 084 BPM Atrial Rate : 084 BPM P-R Int : 124 ms QRS Dur : 070 ms QT Int : 386 ms P-R-T Axes : 039 044 043 degrees QTc Int : 456 ms Normal sinus rhythm Normal ECG Confirmed by ANGELA FRANCO, NELSON ([id number]), sound editor ROMEO SADLER ([id number]) on 06/08/2020 10:55:58 AM Referred By: Confirmed By:NELSON MILLER MD
--- NOTE | 2020-06-05 11:11 | CT_ITS ---
STUDY: CT BRAIN WITHOUT CONTRAST REASON FOR EXAM: Female, 45 years old. HEADACHE, HTN RADIATION DOSAGE (If Supplied By Facility): CTDIvol = ( 44.99 ) mGy, DLP = ( 796.11 ) mGycm TECHNIQUE: Transaxial CT imaging of the brain was performed without administration of intravenous contrast material. Individualized dose optimization techniques were used for this CT. COMPARISON: 04/06/2013 FINDINGS: Normal soft tissue structures. Normal calvarium. Normal size ventricles and extra-axial spaces for the patient''s age. Normal white matter tracts of the cerebral hemispheres. Normal basal ganglia and thalami. Normal brainstem. Normal cerebellum. There is no intracranial hemorrhage. There are no findings of an acute ischemic infarction. Normal visualized paranasal sinuses. CT/Brain/Head without Contrast IMPRESSION: Normal unenhanced CT scan of the brain. Electronically Signed: Yuri Germain MD at 12:02 EST Tel , Service support ,
[2020-06-05] MEDS: Metoclopramide 10 MG/2 ML Vial IV (11:34)
[2020-06-05] MEDS: 0.9% Normal Saline 1,000 ML 1000 ML IV (11:34)
[2020-06-05] MEDS: DiphenhydrAMINE 50 MG/ML Syringe 25 MG IV (11:34)
[2020-06-05 11:37] VITALS: BP 141/100; BP 146/89; BP 148/105; PULSE 82; PULSE 84; PULSE 86
--- NOTE | 2020-06-05 11:45 | RAD_ITS ---
STUDY: X-RAY CHEST REASON FOR EXAM: Female, 45 years old. chest pain, headache TECHNIQUE: Single AP portable view of the chest. COMPARISON: 06/03/2020 FINDINGS: The lungs are clear and expanded. There is no demonstrated pleural abnormality. Normal size heart. Normal mediastinum and jalyn. Normal visualized pulmonary arteries. Normal visualized aortic arch and descending thoracic aorta. Normal visualized thoracic spine. Normal visualized ribs, clavicles, and shoulders. There is no demonstrated abnormality of the visualized soft tissue structures of the upper abdomen. RAD/Chest 1 View (Portable) IMPRESSION: Normal x-ray examination of the chest. Electronically Signed: Yuri Germain MD at 12:03 EST Tel , Service support ,
[2020-06-05 11:58] LABS: Absolute Lymphocyte Count 3.13 X10^3/uL (0.83-4.51); Absolute Neutrophil Count 10.3 X10^3/uL (2.0-7.7); Basophil# 0.05 X10^3/uL; Basophil% 0.3 % (0-1); Eosinophil# 0.13 X10^3/uL; Eosinophils% 0.9 % (0-5); Hematocrit 46.6 % (37-47); Hemoglobin 15.1 g/dL (12.0-15.0); Lymphocyte # 3.13 X10^3/ul (4.0); Lymphocyte % 21.7 % (19-41); Mean Corp Hgb Conc 32.4 g/dL (32-36); Mean Corpuscular Hgb 28.9 pg (27.0-32.0); Mean Corpuscular Volume 89.1 fL (81-99); Mean Platelet Vol. 9.9 fl (6.2-12.0); Monocyte% 4.2 % (0-10); NRBC Flagged by Analyzer 0 % (0-5); Neutrophil # 10.33 X10^3/uL (2.7-7.7); Neutrophil % 71.8 % (47-70); Platelet Count 348 K/mm3 (150-450); RBC Distribution Width CV 12.8 % (11.6-14.6); RBC Distribution Width SD 41.7 fl (35.1-43.9); Red Blood Count 5.23 M/mm3 (4.2-5.4); White Blood Count 14.4 K/mm3 (4.4-11.0)
[2020-06-05 12:11] LABS: Anion Gap 6 (5-15); BUN 10 mg/dL (7-18); Calcium,Total 8.9 mg/dL (8.5-10.1); Chloride 107 mmol/L (98-107); Creatinine, Serum 0.66 mg/dL (0.55-1.02); EST Glomerular Filtration Rate 101 mL/min (>60); Est Glom Filt Rate - Afr Amer 122 mL/min (>60); Estimated Creatinine Clearance 94.82 ml/min; Glucose 94 mg/dL (74-106); Potassium 4.1 mmol/L (3.5-5.1); Sodium Level 137 mmol/L (136-145)
[2020-06-05 12:26] LABS: D-Dimer Quantitative (DVT/PE) 0.54 FEU/ug/m (0.27-0.49)
--- NOTE | 2020-06-05 12:31 | CT_ITS ---
STUDY: CTA CHEST REASON FOR EXAM: Female, 45 years old. ELEVATED D-DIMER, DENIES ANY CHEST COMPLAINTS RADIATION DOSAGE (If Supplied By Facility): CTDIvol = ( 31.58 ) mGy, DLP = ( 747.63 ) mGycm TECHNIQUE: The examination was performed with the intravenous administration of IV 100mL [id number]-300. Post-processing of the angiographic images was performed, with multiplanar reformation and 3D reconstruction. Individualized dose optimization techniques were used for this CT. COMPARISON: Chest x-ray earlier today, chest CT 12/28/2019 FINDINGS: Normal enhancement of the main pulmonary artery and right and left pulmonary arteries. Normal enhancement of the bilateral peripheral pulmonary arteries. There is no demonstrated pulmonary embolism. Normal thoracic aorta and visualized great vessels. There is no demonstrated aortic dissection. Normal heart and pericardium. Normal mediastinum. Normal hilar regions. Normal visualized trachea and bronchi. The lungs are well expanded. Mild emphysematous changes. No change in a 16 mm noncalcified nodule in the periphery the right lower lobe lungs on image 105 and follow-up CT the chest is recommended in 6 months document stability per Normal pleura. Normal chest wall structures. Normal osseous structures. Normal visualized upper abdomen. CT/CTA Chest W/WO Contrast IMPRESSION: 1. Normal CTA chest examination, without a demonstrated pulmonary embolism or arterial dissection. 2. No change in 16 mm right lower lobe noncalcified nodule and follow-up CT is recommended in 6 months document stability per Electronically Signed: Yuri Germain MD at 13:09 EST Tel , Service support ,
[2020-06-05] MEDS: Ketorolac 15 MG/ML Vial IV (12:58)
[2020-06-05 13:00] VITALS: BP 132/95; PULSE 72; RESP 16; O2SAT 100
--- NOTE | 2020-06-05 13:01 | ED.DCSUM_ITS ---
- ER Visit Summary Date of Service: 06/05/20 Chief Complaint: Headache History of Present Illness: The patient is a 45 F presenting with headache, feeling lightheaded, feeling shaky. Patient states she has been feeling like this for several days. She was seen in the ED on Saturday she states for similar complaints. She also was complaining of intermittent chest pain which has been ongoing for several days. She was worked up for chest pain complaint on Saturday. She states her blood pressure has been running with a systolic of 155 at home. She has a diffuse headache. She states this was gradual in onset. She had Covid approximately 1 month ago. She called her primary care physician today and was advised to come to the ED for further evaluation. Physical Examination: Vitals are stable. Blood pressure 152/99. Patient is afebrile. Alert no acute distress. HEENT exam is unremarkable. Neck is supple. No meningismus Lungs are clear and equal bilaterally. Heart is regular rate and rhythm. Abdomen is soft nontender nondistended. Extremities are unremarkable. Skin is warm and dry. No focal neurologic deficit. Remainder of exam is unremarkable. Emergency Department Course and Treatment: Patient was given Reglan, Benadryl IV . EKG is sinus rhythm rate of 84 with no acute ischemic changes. CBC shows white count of 14.4. Chemistries unremarkable. Troponin is negative. D-dimer 0.54. Chest x-ray showed no acute process. CT head shows no acute process. CTA chest shows normal CTA chest examination, without a demonstrated pulmonary embolism or arterial dissection. No change in 16 mm right lower lobe noncalcified nodule and follow-up CT is recommended in 6 months document stability. Patient was advised of these findings. She was given Toradol IV. On reevaluation, she is resting comfortably. Her headache is improved. She is advised to follow-up with her primary care physician. Advised return to ED for worsening complaints. Disposition: Discharge home Impression: Headache This note was generated with [employer] dictation software. It may contain incorrect words, spelling, and punctuation that were not noted in review of the chart prior to signing ED Disposition - Plan for ED Patient: Referrals: Ezequiel Lepe MD [Primary Care Provider] -
--- NOTE | 2020-06-05 13:33 | ED.DEP ---
ED Disposition - Plan for ED Patient: Instructions: ED Headache Unspecified Referrals: Ezequiel Lepe MD [Primary Care Provider] -
[2020-06-05 13:41] VITALS: BP 118/80
== END 2020-06-05 13:41 | disposition home or self-care (01) ==
LOC: ED 11:42
PROVIDERS: Emergency Provider Emergency Medicine; PCP Internal Medicine
DX: R51.9 Headache, unspecified (principal); R07.89 Other chest pain; J44.9 Chronic obstructive pulmonary disease, unspecified; K21.9 Gastro-esophageal reflux disease without esophagitis; Z72.0 Tobacco use; Z79.899 Other long term (current) drug therapy; Z86.16 Personal history of COVID-19
CPT/HCPCS: 70450; 71045; 71275; 80048; 84484; 85025; 85379; 93005; 96361; 96374; 96375; 99285; J7030; Q9967; A4216

== ENCOUNTER 2020-08-02 07:32 | Day surgery (SDC) | payer MEDICARE, MEDICAID, SELFPAY ==
[2020-08-02] VITALS (8 sets, daily range): BP systolic 100–138; BP diastolic 61–78; PULSE 81–88; RESP 16–18; TEMP 36.4–36.6; O2SAT 96–98; BMI 51.9
[2020-08-02] MEDS: Vancomycin IV 1,000 MG/200 ML BAG 200 MG IV (07:00)
[2020-08-02] MEDS: Lactated Ringers 1,000 ML 100 ML IV (08:15)
--- NOTE | 2020-08-02 10:08 | DCINST_ITS ---
Discharge Diet: No Restrictions Discharge Activity: May not drive while taking narcotic pain medications., May Shower May resume sexual activity in: No Restrictions Call your doctor if your incision/area has: Continuous Slow Oozing, Sudden Increased Bleeding, Increased Pain/ Swelling, Increased Redness, Foul Smelling Discharge, Swelling at the incision site Call your doctor if you observe: Fever of 101 or Higher, Inability to urinate, Inability to have a bowel movement, Calf discomfort, Uncontrolled pain Allergies/Adverse Reactions: Allergies cefaclor [From Ceclor] Allergy (Verified 08/02/20 07:56) Hives ciprofloxacin Allergy (Verified 08/02/20 07:56) Hives erythromycin base [Erythromycin Base] Allergy (Verified 08/02/20 07:56) Upset Stomach moxifloxacin HCl [From Avelox] Allergy (Verified 08/02/20 07:56) Hives Penicillins Allergy (Verified 08/02/20 07:56) Upset Stomach sulfamethoxazole [From Bactrim] Allergy (Verified 08/02/20 07:56) Unknown trimethoprim [From Bactrim] Allergy (Verified 08/02/20 07:56) Unknown Medications to take at Discharge albuterol sulfate 90 mcg/actuation breath activated powder inhaler 2 inh INHALATION Q4H PRN 01/27/20 pantoprazole 40 mg tablet,delayed release 40 mg PO BID tab 01/27/20 Sertraline HCl [Zoloft] 50 mg PO DAILY 06/03/20 Oxycodone HCl/Acetaminophen [Percocet 5/325] 2 tablet PO Q8H PRN PRN 7 Days #20 tablet 08/02/20 The following prescriptions were given: Oxycodone HCl/Acetaminophen [Percocet 5/325] 2 tablet PO Q8H PRN PRN 7 Days #20 tablet PRN Reason: Pain Transmission Status: Sent to [facility] Orders to be completed after discharge: COVID 19 AG RAPID (RN COLLECT) Time Frame: 06/27/20, Facility: [facility], Location: Laboratory Primary Care Physician: Ezequiel Lepe MD [Primary Care Provider] - Test Results: Test results from this visit will be discussed in further detail at your follow-up appointment, if applicable. Please Follow Up With: Luisa Mendez MD When: call for appt in 2-3 weeks Proposed Discharge Date: 08/02/20
[2020-08-02] MEDS: Lidocaine 1% /Epi 1:100 (20ml) 20 ML Vial ×2 (10:26→10:32)
--- NOTE | 2020-08-02 10:49 | PCM.OPRPT ---
Problem List (1) Back pain Status: Acute (2) Urgency of micturition Status: Acute (3) Urgency incontinence Status: Acute Report of Operation Date of Procedure: 08/02/20 Pre-Operative Diagnosis: Urge incontinence, urgency, back pain Post-Operative Diagnosis: Same Surgery/Procedure Performed:: InterStim pocket revision Type of Anesthesia:: Local, MAC Specimen's removed: None Estimated Blood Loss (mL): 5 cc Description of Procedure: The patient is a 45-year-old female who has had a successful InterStim inserted for treatment of her urgency, frequency and urge incontinence. She has had pain at the upper medial border of the IPG and she now presents for pocket revision. Informed consent was obtained preoperatively. The patient was taken to the operating room and placed on the operating room table in a prone position. She was appropriately padded and secured to the table. Anesthesia monitored the head, neck, airway, IV access and vital signs throughout the case. Once anesthesia was appropriately administered the patient was prepped and draped in usual sterile fashion. At this time the incision over the IPG was infiltrated superficially with lidocaine. Incision was then opened with a knife and Metzenbaums. Care was taken to avoid damage to the InterStim lead and IPG. The lead was isolated and brought into the operative field. The existing pocket site was incised with the Bovie and hemostasis was achieved after blunt dissection for a new pocket site was performed. After appropriate hemostasis, the IPG was placed into the new deeper pocket and the existing pocket was closed over top of the IPG. The pocket was closed using interrupted 3-0 Vicryl suture. The skin was closed using 4-0 subcuticular Vicryl suturing followed by skin glue. The patient was then awakened and taken to the recovery room in good condition. There were no complications during this procedure. Grafts/Implants Used: No new implants - Complications None - Admit VTE Documentation VTE Present on Admission: Yes VTE Mechan Device Prophylaxis: SCD's VTE Pharm Prophylaxis ordered?: No Reason prophylaxis not ordered:: Treatment Not Indicated
== END 2020-08-02 12:06 | disposition home or self-care (01) ==
LOC: SDC 07:34 → AC 07:34
PROVIDERS: PCP Internal Medicine; Referring Provider Urology; Visit Provider Urology
PROC: (CPT 64585; principal; 2020-08-02 09:40)
DX: N39.41 Urge incontinence (principal); R35.0 Frequency of micturition; R35.1 Nocturia; M54.5 Low back pain; Z20.822 Contact with and (suspected) exposure to COVID-19; F17.210 Nicotine dependence, cigarettes, uncomplicated; Z79.899 Other long term (current) drug therapy
CPT/HCPCS: 00300; 64585; 87426; C9803; J7120; J2405

== ENCOUNTER 2020-08-12 11:57 | Emergency (ER) | payer MEDICARE, MEDICAID, SELFPAY ==
[2020-08-02 07:57] VITALS: BMI 51.9
[2020-08-12 11:59] VITALS: BP 149/96; PULSE 105; RESP 16; TEMP 36.6; O2SAT 95; BMI 52.4
--- NOTE | 2020-08-12 12:12 | ED.VIS.GEN ---
History of Present Illness Chief Complaint: Other, Pain/Inj Informant: Patient Narrative: Patient is a 45-year-old female who presents to the emergency department for pain at her incision site. She had an InterStim placed on August 02. This was a replacement for an old device that was causing discomfort. She states that she has a burning sensation over the medial aspect of the incision site that radiates a few inches up. Some movement seem to make the pain worse. She has been taking Percocet, amitriptyline, as well as sukw-caf-snwspaz pain medication for this which has not been giving her significant relief. The pain has been present since the day after the surgery. She denies any radiation to her abdomen. No overlying skin changes. She is still having urinary frequency but no burning. She denies any changes in bowel movements. She has been getting nauseous with the pain. No episodes of vomiting. No fevers or chills. Past Medical History - Allergies and Home Meds Allergies/Adverse Reactions: Allergies cefaclor [From Ceclor] Allergy (Verified 08/12/20 11:58) Hives ciprofloxacin Allergy (Verified 08/12/20 11:58) Hives erythromycin base [Erythromycin Base] Allergy (Verified 08/12/20 11:58) Upset Stomach moxifloxacin HCl [From Avelox] Allergy (Verified 08/12/20 11:58) Hives Penicillins Allergy (Verified 08/12/20 11:58) Upset Stomach sulfamethoxazole [From Bactrim] Allergy (Verified 08/12/20 11:58) Unknown trimethoprim [From Bactrim] Allergy (Verified 08/12/20 11:58) Unknown Primary Care Physician: Ezequiel Lepe MD [Primary Care Provider] - Prior records reviewed: Yes Past Medical History: - - COPD, urinary frequency Surgical History: cholecystectomy, hysterectomy, - Smoking Status: Heavy Smoker (>10/day) - Family History Maternal Family History: Family History (Last Reviewed 06/06/20 @ 11:43 by Donna aGrza) Mother CVA (cerebral vascular accident) Thyroid disorder Ulcer Arthritis Father Diabetes Heart disease Myocardial infarction Arthritis Hypertension High cholesterol Skin cancer Son Asthma Large B-cell lymphoma Other Anxiety Melanoma Respiratory disease Family History: Reports: Heart Disease Review of Systems All systems negative except as indicated General: Denies: Chills, Fever, Sweats Eyes: Denies: Visual changes - bilaterally, Diplopia ENT: Denies: Rhinorrhea, Sore throat Cardiovascular: Denies: Chest pain, Palpitations Respiratory: Denies: Dyspnea, Cough, Dyspnea on exertion Gastrointestinal: Reports: Nausea. Denies: Abdominal pain, Vomiting, Diarrhea, Melena Genitourinary: Denies: Dysuria, Hematuria, Frequency Musculoskeletal: Reports: Back pain. Denies: Extremity Pain Skin: Denies: Rash, Wounds Neurological: Denies: Headache, Weakness, Numbness Physical Exam Vital Signs/Narrative: Vital Signs Temp Pulse Resp BP Pulse Ox 08/12/20 11:59 98 F 105 H 16 149/96 H 95 Inital Vital Signs reviewed: Yes General: Well nourished, Well developed, No Acute Distress Head: Normocephalic, Atraumatic Eyes: Perrl, EOMI ENT: No rhinorrhea Neck: Supple, Nontender Cardiovascular: Regular rate, Regular rhythm Respiratory: No distress, CTA bilaterally Abdomen: Soft, Nontender, Nondistended Back: Nontender, Normal Inspection, - - Incision on the right lower back is well-healed. No tenderness with palpation. Device is able to be palpated. No overlying skin changes. Extremities: Nontender, No edema Skin: Normal color, No rash Neurological: Alert, Oriented x3, Normal Strength Psychological: Normal affect, Normal Mood Diagnostic/Tx/Re-eval - Medical Decision Making Patient presents to the ED for burning pain at the InterStim placement site in her back. This is a burning sensation. It has been going on since it was placed on August 02. There is no evidence of infection overlying the site. No pain on palpation. Low suspicion for abscess. With the burning it sounds more like a nerve type pain. Will attempt to contact her surgeon for advice on management. I did speak with Dr. Mendez. She advised that we increase her amitriptyline from 25 to 50 mg daily. She also recommend starting gabapentin. I did advise the patient to increase her dose and I will write a prescription for the gabapentin. She is going to follow-up with her urologist in the office early next week. Return precautions are reviewed with her including any worsening pain, overlying skin changes, developing any systemic symptoms. She understands and is agreeable with this plan. Discharged home in stable condition. All questions answered. ED Disposition - Plan for ED Patient: Disposition: Home or Assisted Living Diagnosis: Post-op pain Instructions: ED Post Op Wound Check, Pain Prescriptions: Gabapentin [Neurontin] 100 mg PO TIDCM 7 Days #21 capsule Transmission Status: Received by [facility] Referrals: Ezequiel Lepe MD [Primary Care Provider] - Additional Instructions: Please increase increase your amitriptyline from 25 mg to 50 mg.
[2020-08-12 12:55] VITALS: BP 108/77; PULSE 62; RESP 15; O2SAT 98
== END 2020-08-12 12:57 | disposition home or self-care (01) ==
PROVIDERS: Emergency Provider Emergency Medicine; PCP Internal Medicine
DX: G89.18 Other acute postprocedural pain (principal); F17.200 Nicotine dependence, unspecified, uncomplicated; Z90.710 Acquired absence of both cervix and uterus; Z90.49 Acquired absence of other specified parts of digestive tract
CPT/HCPCS: 99282

== ENCOUNTER 2020-08-23 05:43 | Day surgery (SDC) | payer MEDICARE, MEDICAID, SELFPAY ==
[2020-08-23] VITALS (7 sets, daily range): BP systolic 113–133; BP diastolic 68–96; PULSE 77–96; RESP 16–20; TEMP 36.3–36.7; O2SAT 94–97; BMI 51.5
[2020-08-23] MEDS: Lactated Ringers 1,000 ML 100 ML IV (06:30)
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
--- NOTE | 2020-08-23 08:11 | DCINST_ITS ---
Discharge Diet: No Restrictions Discharge Activity: May not drive while taking narcotic pain medications., May Shower May resume sexual activity in: No Restrictions Call your doctor if you observe: Fever of 101 or Higher, Inability to urinate, Inability to have a bowel movement Allergies/Adverse Reactions: Allergies cefaclor [From Ceclor] Allergy (Verified 08/23/20 06:19) Hives ciprofloxacin Allergy (Verified 08/23/20 06:19) Hives erythromycin base [Erythromycin Base] Allergy (Verified 08/23/20 06:19) Upset Stomach moxifloxacin HCl [From Avelox] Allergy (Verified 08/23/20 06:19) Hives Penicillins Allergy (Verified 08/23/20 06:19) Upset Stomach sulfamethoxazole [From Bactrim] Allergy (Verified 08/23/20 06:19) Unknown trimethoprim [From Bactrim] Allergy (Verified 08/23/20 06:19) Unknown Medications to take at Discharge albuterol sulfate 90 mcg/actuation breath activated powder inhaler 2 inh INHALATION Q4H PRN 01/27/20 pantoprazole 40 mg tablet,delayed release 40 mg PO BID tab 01/27/20 Gabapentin [Neurontin] 100 mg PO TIDCM 08/23/20 Primary Care Physician: Ezequiel Lepe MD [Primary Care Provider] - Test Results: Test results from this visit will be discussed in further detail at your follow- up appointment, if applicable. Please Follow Up With: Luisa Mendez MD When: call office for appt in the next week Proposed Discharge Date: 08/23/20
[2020-08-23] MEDS: Ketorolac 30 MG/ML Syringe IV (09:32)
[2020-08-23] MEDS: Acetaminophen 325 MG Tablet PO (09:37)
[2020-08-23] MEDS: oxyCODONE 5 MG Tablet PO (09:37)
== END 2020-08-23 10:13 | disposition home or self-care (01) ==
LOC: SDC 05:44 → AC 05:44
PROVIDERS: PCP Internal Medicine; Referring Provider Urology; Visit Provider Urology
PROC: 0TJ98ZZ Inspection of Ureter, Via Natural or Artificial Opening Endoscopic (ICD-10-PCS; CPT 52352; principal; 2020-08-23 07:20)
DX: N28.89 Other specified disorders of kidney and ureter (principal); Z85.53 Personal history of malignant neoplasm of renal pelvis; Z20.822 Contact with and (suspected) exposure to COVID-19; N39.41 Urge incontinence; R35.0 Frequency of micturition; J44.9 Chronic obstructive pulmonary disease, unspecified; K21.9 Gastro-esophageal reflux disease without esophagitis; F32.9 Major depressive disorder, single episode, unspecified; F41.9 Anxiety disorder, unspecified; F17.210 Nicotine dependence, cigarettes, uncomplicated; Z87.442 Personal history of urinary calculi; Z87.440 Personal history of urinary (tract) infections
CPT/HCPCS: 52351; 76000; 87426; C9803; J7120; C1769; J2405

== ENCOUNTER 2020-08-25 09:43 | Emergency (ER) | payer MEDICARE, MEDICAID, SELFPAY ==
[2020-08-23 06:22] VITALS: BMI 51.5
[2020-08-25 09:43] VITALS: BP 154/101; PULSE 80; RESP 20; TEMP 36.6; O2SAT 96; BMI 52.4
[2020-08-25 09:50] VITALS: BP 154/101; PULSE 80; RESP 20; TEMP 36.6; O2SAT 96
--- NOTE | 2020-08-25 09:54 | ED.VIS.GEN ---
History of Present Illness Chief Complaint: Abd Pain Informant: Patient Onset: Yesterday Context: Gradual Onset Timing: Continuous Current Severity: Moderate Maximum Severity: Moderate Narrative: The patient is a 45-year-old female presents to the emergency department multiple complaints. 2 days ago, patient had cystoscopy. There was concern for a renal mass. She underwent cystoscopy. She did not require any stenting. She states that she was Covid negative prior to the procedure. Since her procedure, she states she has been having chills, myalgias, shortness of breath, and abdominal cramping. She states that she only urinated 3 times. She denies any vomiting. She is had a scant cough. She does admit to some diminished appetite and generalized malaise. She states up until the procedure, she has been in her normal state of health. She denies any other concerning symptoms. She is not had chest pain. Prior similar symptoms: No Recent Illness/Hospitalization: Yes Past Medical History - Allergies and Home Meds Allergies/Adverse Reactions: Allergies cefaclor [From Ceclor] Allergy (Verified 08/25/20 09:47) Hives ciprofloxacin Allergy (Verified 08/25/20 09:47) Hives erythromycin base [Erythromycin Base] Allergy (Verified 08/25/20 09:47) Upset Stomach moxifloxacin HCl [From Avelox] Allergy (Verified 08/25/20 09:47) Hives Penicillins Allergy (Verified 08/25/20 09:47) Upset Stomach sulfamethoxazole [From Bactrim] Allergy (Verified 08/25/20 09:47) Unknown trimethoprim [From Bactrim] Allergy (Verified 08/25/20 09:47) Unknown Primary Care Physician: Ezequiel Lepe MD [Primary Care Provider] - Prior records reviewed: Yes Past Medical History: - - GERD, COPD, kidney stones Surgical History: cholecystectomy, hysterectomy, - Smoking Status: Current some day smoker - Family History Maternal Family History: Family History (Last Reviewed 06/06/20 @ 11:43 by Donna Garza) Mother CVA (cerebral vascular accident) Thyroid disorder Ulcer Arthritis Father Diabetes Heart disease Myocardial infarction Arthritis Hypertension High cholesterol Skin cancer Son Asthma Large B-cell lymphoma Other Anxiety Melanoma Respiratory disease Family History: Reports: Heart Disease Review of Systems General: Reports: Fever, Malaise. Denies: Chills, Sweats Eyes: Denies: Visual changes - bilaterally, Diplopia ENT: Denies: Rhinorrhea, Sore throat Cardiovascular: Denies: Chest pain, Palpitations Respiratory: Reports: Cough. Denies: Dyspnea, Dyspnea on exertion Gastrointestinal: Reports: Abdominal pain, Nausea. Denies: Vomiting, Diarrhea, Melena, Hematochezia Genitourinary: Denies: Dysuria, Hematuria, Frequency Musculoskeletal: Reports: Back pain. Denies: Extremity Pain Skin: Denies: Rash, Wounds Neurological: Denies: Headache, Weakness, Numbness Physical Exam Vital Signs/Narrative: Vital Signs Temp Pulse Resp BP Pulse Ox 08/25/20 09:50 98 F 80 20 H 154/101 H 96 08/25/20 09:43 98 F 80 20 H 154/101 H 96 Inital Vital Signs reviewed: Yes General: Well nourished, Well developed, No Acute Distress Head: Normocephalic, Atraumatic Eyes: Perrl, EOMI ENT: Moist mucous membranes, No rhinorrhea Neck: Supple, Nontender Cardiovascular: Regular rate, Regular rhythm, No murmurs Respiratory: No distress, CTA bilaterally, Chest nontender Abdomen: Soft, Nontender, Nondistended, Normal bowel sounds Back: Nontender, Normal Inspection Extremities: Nontender, No edema Skin: Normal color, No rash Neurological: Alert, Oriented x3, Cranial nerves II-XII grossly intact, Normal Strength, Normal Sensation Psychological: Normal affect, Normal Mood Diagnostic/Tx/Re-eval Clinical Impression(s) from Imaging Studies Chest X-Ray 08/25/20 10:57 IMPRESSION: Normal x-ray examination of the chest. Electronically Signed: Michael Jacome MD at 11:30 EDT , Service support , Abnormal Lab Results 08/25/20 08/25/20 08/25/20 10:14 11:15 11:15 WBC 10.8 RBC 4.65 Hgb 13.6 Hct 43.4 MCV 93.3 MCH 29.2 MCHC 31.3 L RDW Std Deviation 45.4 H RDW Coeff of Saeid 13.3 Plt Count 276 MPV 10.6 Immature Gran % (Auto) 0.400 Neut % (Auto) 58.2 Lymph % (Auto) 33.6 [place] % (Auto) 5.4 Eos % (Auto) 2.0 Baso % (Auto) 0.4 Absolute Neuts (auto) 6.3 Absolute Lymphs (auto) 3.64 Nucleated RBC % 0 Sodium 138 Potassium 4.4 Chloride 107 Carbon Dioxide 29.0 Anion Gap 2 L BUN 14 Creatinine 0.75 Estim Creat Clear Calc 83.44 Est GFR (MDRD) Af Amer 106 Est GFR (MDRD) Non-Af 88 BUN/Creatinine Ratio 18.6 Glucose 97 Calcium 9.0 Total Bilirubin 0.30 AST 14 L ALT 36 Alkaline Phosphatase 95 Total Protein 7.0 Albumin 3.3 Globulin 3.7 Albumin/Globulin Ratio 0.9 Lipase 51 L Urine Color Straw Urine Clarity Sl. Cloudy Urine pH 6.0 Ur Specific [place] 1.010 Urine Protein Negative Urine Glucose (UA) Normal Urine Ketones Negative Urine Occult Blood 25 H Urine Nitrite Negative Urine Bilirubin Negative Urine Urobilinogen Normal Ur Leukocyte Esterase Negative Urine RBC 0 SEEN Urine WBC 0 SEEN Ur Squamous Epith Cells 0-5 SEEN Urine Bacteria 0 SEEN Urine Mucus 0 SEEN - Medical Decision Making The patient presents with chills, nausea, vomiting, and myalgias. Broad metabolic work-up was pursued. Covid test was obtained was negative. Chest x-ray shows no evidence of focal infiltrate. The patient was not hypoxic or tachypneic here. Lab work was obtained. This is unremarkable. We had a difficult time obtaining IV access on the patient. She became rather upset and did not want to stay any further in the emergency department. Her labs have been reported and were unremarkable. I do not suspect a dangerous process. I do feel this is more likely secondary some postop pain. I do feel that she is safe for outpatient therapy. Impression 1. Postoperative pain 2. Myalgias ED Disposition - Plan for ED Patient: Disposition: Home or Assisted Living Instructions: ED Abdominal Pain Unkn Cause Fem Prescriptions: Hydrocodone Bitart/Apap 5-325 [Snook 5MG-325MG] 1 tablet PO Q6H PRN PRN 3 Days #10 tab PRN Reason: Pain Prescription Printed Ondansetron [Zofran Odt] 4 mg PO Q8H PRN PRN #10 tablet PRN Reason: Nausea Prescription Printed Referrals: Ezequiel Lepe MD [Primary Care Provider] -
[2020-08-25 10:19] LABS: Bacteria 0 SEEN /hpf (None Seen); Mucous, Urine 0 SEEN /hpf (<or=2+); Red Blood Cells-Urine 0 SEEN /hpf (0-5); White Blood Cells 0 SEEN /hpf (0-5)
[2020-08-25 10:22] LABS: Color, Urine Straw (Yellow); Glucose, Dipstick Normal (Normal); Ketone-Dipstick Negative (Negative); Leukocyte Esterase-Dipstick Negative /ul (Negative); Nitrite-Dipstick Negative (Negative); Occult Blood-Urine 25 /ul (Negative); Protein-Dipstick Negative (Negative); Urine Bilirubin Dipstick Negative (Negative); Urine Clarity Sl. Cloudy (Clear); Urine Urobilinogen Normal (Normal)
[2020-08-25 10:40] LABS: Squamous Epithelial Cells - UA 0-5 SEEN /hpf (5-10)
--- NOTE | 2020-08-25 10:57 | RAD_ITS ---
STUDY: X-RAY CHEST REASON FOR EXAM: Female, 45 years old. Sob TECHNIQUE: Single AP portable view of the chest. COMPARISON: Comparison is made with prior study dated 06/05/2020. FINDINGS: EKG electrodes are seen. The lungs are clear and expanded. There is no demonstrated pleural abnormality. Normal size heart. Normal mediastinum and jalyn. Normal visualized pulmonary arteries. Normal visualized aortic arch and descending thoracic aorta. Normal visualized thoracic spine. Normal visualized ribs, clavicles, and shoulders. There is no demonstrated abnormality of the visualized soft tissue structures of the upper abdomen. RAD/Chest 1 View (Portable) IMPRESSION: Normal x-ray examination of the chest. Electronically Signed: Michael Jacome MD at 11:30 EDT , Service support ,
--- NOTE | 2020-08-25 10:57 | ED.RN ---
pt poked twice by this rn, and once by medic student, unable to obtain an iv. charge nurse elan informed.
[2020-08-25 11:26] LABS: Absolute Lymphocyte Count 3.64 X10^3/uL (0.83-4.51); Absolute Neutrophil Count 6.3 X10^3/uL (2.0-7.7); Basophil# 0.04 X10^3/uL; Basophil% 0.4 % (0-1); Eosinophil# 0.22 X10^3/uL; Hematocrit 43.4 % (37-47); Hemoglobin 13.6 g/dL (12.0-15.0); Lymphocyte # 3.64 X10^3/ul (0.83-4.51); Lymphocyte % 33.6 % (19-41); Mean Corp Hgb Conc 31.3 g/dL (32-36); Mean Corpuscular Hgb 29.2 pg (27.0-32.0); Mean Corpuscular Volume 93.3 fL (81-99); Mean Platelet Vol. 10.6 fl (6.2-12.0); Monocyte# 0.58 X10^3/uL; Monocyte% 5.4 % (0-10); NRBC Flagged by Analyzer 0 % (0-5); Neutrophil # 6.31 X10^3/uL (2.7-7.7); Neutrophil % 58.2 % (47-70); Platelet Count 276 K/mm3 (150-450); RBC Distribution Width CV 13.3 % (11.6-14.6); RBC Distribution Width SD 45.4 fl (35.1-43.9); Red Blood Count 4.65 M/mm3 (4.2-5.4); White Blood Count 10.8 K/mm3 (4.4-11.0)
[2020-08-25] MEDS: Morphine 4 MG/ML Syringe IM (11:30)
[2020-08-25] MEDS: Ondansetron 4 MG/2 ML Vial IM (11:30)
[2020-08-25 11:34] VITALS: BP 124/80; PULSE 100; RESP 16; TEMP 36.7; O2SAT 98
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
[2020-08-25 11:41] VITALS: BP 124/80; PULSE 66; RESP 15; O2SAT 98
[2020-08-25 11:42] LABS: ALB/GLOB Ratio 0.9 RATIO (0.9-2.4); AST(SGOT) 14 U/L (15-37); Alanine Aminotransfer ALT/SGPT 36 U/L (13-56); Albumin, Serum 3.3 g/dL (3.2-5.0); Alkaline Phosphatase 95 U/L (45-117); Anion Gap 2 (5-15); BUN 14 mg/dL (7-18); BUN/Creat Ratio 18.6 RATIO (10-20); Chloride 107 mmol/L (98-107); Creatinine, Serum 0.75 mg/dL (0.55-1.02); EST Glomerular Filtration Rate 88 mL/min (>60); Est Glom Filt Rate - Afr Amer 106 mL/min (>60); Estimated Creatinine Clearance 83.44 ml/min; Globulin 3.7 g/dL (2.2-4.2); Glucose 97 mg/dL (74-106); Lipase 51 U/L (73-393); Potassium 4.4 mmol/L (3.5-5.1); Sodium Level 138 mmol/L (136-145)
== END 2020-08-25 11:42 | disposition home or self-care (01) ==
LOC: ED 10:29
PROVIDERS: Emergency Provider Emergency Medicine; PCP Internal Medicine
DX: G89.18 Other acute postprocedural pain (principal); R10.9 Unspecified abdominal pain; Z20.822 Contact with and (suspected) exposure to COVID-19; J44.9 Chronic obstructive pulmonary disease, unspecified; M79.10 Myalgia, unspecified site; R68.83 Chills (without fever); K21.9 Gastro-esophageal reflux disease without esophagitis; Z87.442 Personal history of urinary calculi; Z90.49 Acquired absence of other specified parts of digestive tract; Z90.710 Acquired absence of both cervix and uterus
CPT/HCPCS: 36415; 71045; 80053; 81001; 83690; 85025; 87426; 96372; 99283; J7030; J2405

== ENCOUNTER 2020-08-30 07:53 | Day surgery (SDC) | payer MEDICARE, MEDICAID, SELFPAY ==
[2020-08-30 08:39] VITALS: BP 119/83; PULSE 78; RESP 14; TEMP 36.6; O2SAT 96; BMI 52.0
[2020-08-30] MEDS: Vancomycin IV 1,000 MG/200 ML BAG 200 MG IV (09:00)
[2020-08-30] MEDS: Lactated Ringers 1,000 ML 100 ML IV (09:02)
--- NOTE | 2020-08-30 09:48 | PCM.OPRPT ---
Problem List (1) Urgency of micturition Status: Acute (2) Urgency incontinence Status: Acute (3) Back pain Status: Acute Report of Operation Date of Procedure: 08/30/20 Pre-Operative Diagnosis: Back pain, urgency of urination, urge incontinence Post-Operative Diagnosis: Same, seroma Surgery/Procedure Performed:: Revision IPG pocket and evacuation seroma. Type of Anesthesia:: MAC Description of Procedure: The patient is a 45-year-old female who had a successful implantation of an InterStim lead and IPG. She has had excruciating pain at the pocket site after a pocket revision for pain. She desired removal of the InterStim as the pain would wake her up at night and was uncontrollable. Informed consent was obtained. Patient was taken to the operating room and placed in a prone position on the operating room table. Anesthesia monitored the head, neck, airway, IV access and vital signs throughout the case. Once anesthesia was appropriately ministered the patient was prepped and draped in usual sterile fashion. The area surrounding the IPG was infiltrated with 1% lidocaine with epinephrine. The incision was then opened. At the old pocket site, a seroma was hit with a knife and the fluid is evacuated and the area was fulgurated. Given that the InterStim worked well for her incontinence, we elected to evacuate the seroma and reclose her pocket site. The area was irrigated with sterile water. It was closed with 3-0 interrupted Vicryl followed by 4-0 subcuticular suturing and skin glue. She was then awakened and taken to the recovery room in good condition. There were no complications during this procedure. Grafts/Implants Used: None - Complications None - Admit VTE Documentation VTE Present on Admission: Yes VTE Mechan Device Prophylaxis: SCD's VTE Pharm Prophylaxis ordered?: No Reason prophylaxis not ordered:: Treatment Not Indicated
--- NOTE | 2020-08-30 09:51 | DCINST_ITS ---
Discharge Diet: No Restrictions Discharge Activity: May not drive while taking narcotic pain medications., May Shower Call your doctor if your incision/area has: Continuous Slow Oozing, Sudden Increased Bleeding, Increased Pain/ Swelling, Increased Redness, Foul Smelling Discharge, Swelling at the incision site Call your doctor if you observe: Fever of 101 or Higher, Inability to urinate, Inability to have a bowel movement, Calf discomfort, Uncontrolled pain Allergies/Adverse Reactions: Allergies cefaclor [From Ceclor] Allergy (Verified 08/26/20 14:39) Hives ciprofloxacin Allergy (Verified 08/26/20 14:39) Hives erythromycin base [Erythromycin Base] Allergy (Verified 08/26/20 14:39) Upset Stomach moxifloxacin HCl [From Avelox] Allergy (Verified 08/26/20 14:39) Hives Penicillins Allergy (Verified 08/26/20 14:39) Upset Stomach sulfamethoxazole [From Bactrim] Allergy (Verified 08/26/20 14:39) Unknown trimethoprim [From Bactrim] Allergy (Verified 08/26/20 14:39) Unknown Medications to take at Discharge albuterol sulfate 90 mcg/actuation breath activated powder inhaler 2 inh INHALATION Q4H PRN 01/27/20 pantoprazole 40 mg tablet,delayed release 40 mg PO BID tab 01/27/20 Oxycodone HCl/Acetaminophen [Percocet 5/325] 2 tablet PO Q8H PRN PRN 7 Days #20 tablet 08/30/20 The following prescriptions were given: Oxycodone HCl/Acetaminophen [Percocet 5/325] 2 tablet PO Q8H PRN PRN 7 Days #20 tablet PRN Reason: Pain Transmission Status: Sent to [facility] Primary Care Physician: Ezequiel Lepe MD [Primary Care Provider] - Test Results: Test results from this visit will be discussed in further detail at your follow- up appointment, if applicable. Please Follow Up With: Luisa Mendez MD When: call office for appt in 2 weeks Proposed Discharge Date: 08/30/20
[2020-08-30] MEDS: Lidocaine 1% /Epi 1:100 (20ml) 20 ML Vial (11:17)
[2020-08-30 11:35] VITALS: BP 113/83; BP 119/83; PULSE 83; RESP 18; TEMP 36.3; O2SAT 100
[2020-08-30 11:40] VITALS: BP 115/77; BP 119/83; PULSE 84; RESP 18; O2SAT 100
[2020-08-30] MEDS: Ketorolac 30 MG/ML Syringe IV (11:41)
[2020-08-30 11:45] VITALS: BP 119/83; BP 124/71; PULSE 77; RESP 18; O2SAT 95
[2020-08-30 11:50] VITALS: BP 119/83; BP 127/84; PULSE 80; RESP 18; TEMP 36.2; O2SAT 97
[2020-08-30 12:12] VITALS: BP 119/83
== END 2020-08-30 12:15 | disposition home or self-care (01) ==
LOC: SDC 07:54 → AC 07:56
PROVIDERS: PCP Internal Medicine; Referring Provider Urology; Visit Provider Urology
PROC: (CPT 10140; principal; 2020-08-30 09:50)
DX: T85.840A Pain due to nervous system prosthetic devices, implants and grafts, initial encounter (principal); L76.34 Postprocedural seroma of skin and subcutaneous tissue following other procedure; Y83.8 Other surgical procedures as the cause of abnormal reaction of the patient, or of later complication, without mention of misadventure at the time of the procedure; Y92.9 Unspecified place or not applicable; N39.41 Urge incontinence; N39.0 Urinary tract infection, site not specified; R35.0 Frequency of micturition; R19.7 Diarrhea, unspecified; K21.9 Gastro-esophageal reflux disease without esophagitis; F17.210 Nicotine dependence, cigarettes, uncomplicated
CPT/HCPCS: 00300; 10140; J7120

== ENCOUNTER 2020-09-06 12:02 | Day surgery (SDC) | payer MEDICARE, MEDICAID, SELFPAY ==
[2020-09-06] MEDS: Vancomycin IV 1,000 MG/200 ML BAG 200 MG IV (07:00)
[2020-09-06 12:55] VITALS: BP 115/69; PULSE 85; RESP 20; TEMP 37.1; O2SAT 94; BMI 52.0
[2020-09-06] MEDS: Lidocaine 1% /Epi 1:100 (20ml) 20 ML Vial (12:58)
--- NOTE | 2020-09-06 14:12 | OP.PCM_ITS ---
Problems Associated Problem List Diagnoses (1) Urgency of micturition: (2) Urgency incontinence: (3) Back pain: Report of Operation Date of Procedure: 09/06/20 Pre-Operative Diagnosis: Urinary urgency, urinary frequency, back pain Post-Operative Diagnosis: Same Surgery/Procedure Performed:: Removal InterStim IPG and lead Type of Anesthesia: MAC Estimated Blood Loss (mL): 5cc Description of Procedure: The patient is a 45-year-old female who has been having continued pain despite several pocket site revisions from her InterStim. She now presents for removal. Informed consent is obtained. The patient was taken to the operating room and placed in a prone position on the operating room table. Anesthesia monitored the head, neck, airway, IV access and vital signs throughout the case. Once anesthesia was appropriately administered, the area overlying the pocket site and the lead insertion site were infiltrated with 1% lidocaine. Incisions were then made over the existing scar tissue. Dissection was done over the pocket site first using the Bovie cautery and blunt dissection. The IPG was located and brought into the op erative field. The lead was isolated and cut. The IPG was removed from the field. The incision over the wire was evaluated and the lead was identified and grasped with a hemostat. Slowly, using 2 hemostats, the lead in its entirety with all prongs was removed. Both the pocket site and the lead insertion site were irrigated with sterile water. The incisions were closed with 3-0 interrupted Vicryl followed by 4-0 subcuticular suturing and then skin glue. The patient was then awakened and taken to the recovery room in good condition. There were no complications during this procedure. Grafts/Implants Used: None Complications None Admit VTE Documentation VTE Present on Admission: Yes VTE Mechan Device Prophylaxis: SCD's VTE Pharm Prophylaxis ordered?: No Reason prophylaxis not ordered:: Treatment Not Indicated
--- NOTE | 2020-09-06 14:18 | PCM.DC ---
Discharge Instructions Outpatient Procedure Reason For Visit: Pre-Surgical Testing Diet Discharge Diet: No restrictions Activity Discharge Activity: Return to Normal Activity, May not drive while taking narcotic pain medications. and May Shower May resume sexual activity in: 2 weeks Dressing / Incision Call your doctor if your incision/area has: Continuous Slow Oozing, Sudden Increased Bleeding, Increased Pain/ Swelling, Increased Redness, Foul Smelling Discharge and Swelling at the incision site Call your doctor if you observe: Fever of 101 or Higher, Inability to urinate, Inability to have a bowel movement, Calf discomfort and Uncontrolled pain Follow Up Care Please Follow Up With: Luisa Mendez MD When: call office for appt in 2 weeks Test Results: Test results from this visit will be discussed in further detail at your follow-up appointment, if applicable. Discharge Plan Admission Primary Reason for Your Visit: Urinary urgency, urinary frequency, back pain Attending Provider: Luisa Mendez Primary Care Provider: Ezequiel Lepe Instructions Patient Instructions: ED Chest Pain, Noncardiac Discharge Orders/Prescriptions Prescriptions: New oxycodone-acetaminophen [Endocet] 5-325 mg tablet 2 tab PO Q8H PRN (Reason: pain) 3 Days Qty: 10 RF: 0 Continued pantoprazole 40 mg tablet,delayed release (DR/EC) 40 mg PO BID RF: 0 albuterol sulfate 90 mcg/actuation aerosol powdr breath activated 2 inh INHALATION Q4H PRN (Reason: Sob &/Or Wheezing) RF: 0 Referrals: Ezequiel Lepe MD [Primary Care Provider] - Disposition Patient Disposition: Home, self care
[2020-09-06 14:20] VITALS: BP 114/85; BP 115/69; PULSE 92; RESP 20; TEMP 36.8; O2SAT 93
[2020-09-06 14:25] VITALS: BP 115/69; BP 117/72; PULSE 90; RESP 20; O2SAT 95
[2020-09-06 14:30] VITALS: BP 105/74; BP 115/69; PULSE 90; RESP 20; O2SAT 94
[2020-09-06 14:36] VITALS: BP 105/74; BP 115/69; PULSE 90; RESP 20; TEMP 36.8; O2SAT 95
[2020-09-06 15:21] VITALS: BP 115/69
--- NOTE | 2020-09-20 10:55 | PCM.HP.STD ---
HPI - General General Date of Admission: 12/28/19 HPI Narrative RAKESH HEARN, is a 45 F who presents for removal of Interstim IPG and lead due to uncontrolled pain. [facility] Medical History Anxiety and depression Asthma Cancer of left kidney Chronic neck and back pain COPD (chronic obstructive pulmonary disease) Diarrhea Diarrhea Fatigue Fatty stools GERD (gastroesophageal reflux disease) H/O emotional problems History of mononucleosis Incontinence Intestinal ulcer Limb weakness Lung disease Mild chronic gastritis Shoulder pain SOB (shortness of breath) Home Medications albuterol sulfate 90 mcg/actuation breath activated powder inhaler 2 inh INHALATION Q4H PRN 01/27/20 [History Last Taken 03/23/20] pantoprazole 40 mg tablet,delayed release 40 mg PO BID tab 01/27/20 [History Last Taken 09/06/20 04:30] oxycodone-acetaminophen [Endocet] 2 tab PO Q8H PRN 3 Days #10 tab 09/06/20 [Rx Last Taken Unknown] Allergy/AdvReac Type Severity Reaction Status Date / Time cefaclor [From Ceclor] Allergy Hives Verified 09/09/20 12:59 ciprofloxacin Allergy Hives Verified 09/09/20 12:59 erythromycin base Allergy Upset Verified 09/09/20 12:59 [Erythromycin Base] Stomach moxifloxacin HCl Allergy Hives Verified 09/09/20 12:59 [From Avelox] Penicillins Allergy Upset Verified 09/09/20 12:59 Stomach sulfamethoxazole Allergy Unknown Verified 09/09/20 12:59 [From Bactrim] trimethoprim [From Bactrim] Allergy Unknown Verified 09/09/20 12:59 Family History Mother CVA (cerebral vascular accident) Thyroid disorder Ulcer Arthritis Father Diabetes Heart disease Myocardial infarction Arthritis Hypertension High cholesterol Skin cancer Son , age 17 Asthma Large B-cell lymphoma Other Anxiety Melanoma Respiratory disease Surgical History History of ankle surgery History of esophagogastroduodenoscopy (EGD) (~01/20/20) History of lymph node biopsy History of partial hysterectomy History of sinus surgery History of tonsillectomy Hx of cholecystectomy Hx of nasal septoplasty Hx of prior ablation treatment Hx of tonsillectomy Social History household members: children Smoking Status: Current every day smoker tobacco type: cigarettes Tobacco: How many years used: 25 alcohol intake: never substance use type: does not use what type of physical activity do you participate in: none do you feel safe at home: Yes ROS Constitutional Constitutional: Reports systems reviewed and no addt'l complaints, except as documented Eyes Eyes: Reports systems reviewed and no addt'l complaints, except as documented ENT HEENT: Reports systems reviewed and no addt'l complaints, except as documented Cardiovascular Cardiovascular: Reports systems reviewed and no addt'l complaints, except as documented Respiratory/Chest Respiratory/Chest: Reports systems reviewed and no addt'l complaints, except as documented Gastrointestinal Gastrointestinal: Reports systems reviewed and no addt'l complaints, except as documented Genitourinary Genitourinary: Reports urinary frequency, urinary incontinence, urinary urgency and other Details: continued pain at the Interstim pocket site even after revision twice. Musculoskeletal Musculoskeletal: Reports back pain Integumentary Integumentary: Reports systems reviewed and no addt'l complaints, except as documented Neurologic Neurologic: Reports systems reviewed and no addt'l complaints, except as documented Psychiatric Psychiatric: Reports systems reviewed and no addt'l complaints, except as documented Physical Exam Const alert and oriented x3 General Appearance: cooperative and comfortable Orientation / Consciousness: awake and oriented to person HEENT normocephalic and head/scalp atraumatic Neck supple Chest inspection of chest normal Chest: symmetrical chest wall rise Resp normal respiratory effort, normal air movement and no retractions Effort and Inspection: able to speak in complete sentences and symmetric chest movement Cardio regular rate and regular rhythm GI soft to palpation, non-tender and non-distended Narrative: tender over the IPG pocket site. No evidence of infection, drainage, eschar, fluctuance Extremity normal to inspection Skin no rashes or lesions noted Neuro oriented x3, CN's II-XII intact bilaterally and moves all extremities Assessment & Plan Assessment/Plan (1) Back pain: PLAN: proceed with removal Interstim lead and battery (2) Urgency incontinence: (3) Urgency of micturition: Procedure Criteria Procedure Type: Elective COVID Risk Discussion: The surgeon/proceduralist and patient have discussed in detail the risk of exposure to and/or potential harm posed by the COVID-19 virus with having a surgery/procedure at this time versus the risk of delaying the surgery/procedure. It is not possible to know either the risk of delaying the surgery or procedure or chance of getting an infection with perfect accuracy, but a joint decision was made between the patient and the surgeon/proceduralist to proceed at this time with the scheduled surgery/procedure as indicated on the consent form.
== END 2020-09-06 15:25 | disposition home or self-care (01) ==
LOC: SDC 12:03 → AC 12:07
PROVIDERS: PCP Internal Medicine; Referring Provider Urology; Visit Provider Urology
PROC: (CPT 64585; principal; 2020-09-06 13:30)
DX: T85.840A Pain due to nervous system prosthetic devices, implants and grafts, initial encounter (principal); Z20.822 Contact with and (suspected) exposure to COVID-19; N39.41 Urge incontinence; M54.9 Dorsalgia, unspecified; J44.9 Chronic obstructive pulmonary disease, unspecified; F17.210 Nicotine dependence, cigarettes, uncomplicated; Z79.899 Other long term (current) drug therapy
CPT/HCPCS: 00300; 64585; 64595; 87426; C9803; J7120; J2405

== ENCOUNTER → 2020-09-29 13:48 | Outpatient (CLI) | payer MEDICARE, MEDICAID, SELFPAY ==
[2020-09-29 13:14] VITALS: BMI 52.4
--- NOTE | 2020-09-29 14:25 | RAD_ITS ---
STUDY: X-RAY CHEST REASON FOR EXAM: Female, 45 years old. Shortness of breath TECHNIQUE: PA and lateral views of the chest. COMPARISON: 08/25/2020 FINDINGS: The lungs are clear and expanded. There is no demonstrated pleural abnormality. Normal size heart. Normal mediastinum and jalyn. Normal visualized pulmonary arteries. Normal visualized aortic arch and descending thoracic aorta. Normal visualized thoracic spine. Normal visualized ribs, clavicles, and shoulders. There is no demonstrated abnormality of the visualized soft tissue structures of the upper abdomen. RAD/Chest PA and Lateral IMPRESSION: Normal x-ray examination of the chest. Electronically Signed: Elio James MD at 14:42 EDT , Service support ,
[2020-09-29 15:05] LABS: Absolute Lymphocyte Count 2.83 X10^3/uL (0.83-4.51); Absolute Neutrophil Count 7.4 X10^3/uL (2.0-7.7); Basophil# 0.03 X10^3/uL; Basophil% 0.3 % (0-1); Eosinophil# 0.25 X10^3/uL; Eosinophils% 2.2 % (0-5); Hematocrit 44.7 % (37-47); Hemoglobin 14.6 g/dL (12.0-15.0); Lymphocyte # 2.83 X10^3/ul (0.83-4.51); Lymphocyte % 25.4 % (19-41); Mean Corp Hgb Conc 32.7 g/dL (32-36); Mean Corpuscular Hgb 29.4 pg (27.0-32.0); Mean Corpuscular Volume 89.9 fL (81-99); Mean Platelet Vol. 10.7 fl (6.2-12.0); Monocyte% 5.4 % (0-10); NRBC Flagged by Analyzer 0 % (0-5); Neutrophil # 7.37 X10^3/uL (2.7-7.7); Neutrophil % 66.3 % (47-70); Platelet Count 314 K/mm3 (150-450); RBC Distribution Width CV 13.2 % (11.6-14.6); RBC Distribution Width SD 43.2 fl (35.1-43.9); Red Blood Count 4.97 M/mm3 (4.2-5.4); White Blood Count 11.1 K/mm3 (4.4-11.0)
[2020-09-29 15:38] LABS: BNP,B-Type NATRIURETIC PEPTIDE 23.4 pg/mL (0-100)
[2020-09-29 16:44] LABS: ALB/GLOB Ratio 0.8 RATIO (0.9-2.4); AST(SGOT) 15 U/L (15-37); Alanine Aminotransfer ALT/SGPT 33 U/L (13-56); Albumin, Serum 3.3 g/dL (3.2-5.0); Alkaline Phosphatase 117 U/L (45-117); Anion Gap 5 (5-15); BUN 15 mg/dL (7-18); BUN/Creat Ratio 23.3 RATIO (10-20); Calcium,Total 9.2 mg/dL (8.5-10.1); Chloride 107 mmol/L (98-107); Creatinine, Serum 0.64 mg/dL (0.55-1.02); EST Glomerular Filtration Rate 105 mL/min (>60); Est Glom Filt Rate - Afr Amer 127 mL/min (>60); Globulin 3.9 g/dL (2.2-4.2); Glucose 124 mg/dL (74-106); Potassium 4.1 mmol/L (3.5-5.1); Protein, Total 7.2 g/dL (6.4-8.2); Sodium Level 140 mmol/L (136-145)
== END ==
PROVIDERS: PCP Internal Medicine; Referring Provider Internal Medicine; Visit Provider Internal Medicine
DX: J44.9 Chronic obstructive pulmonary disease, unspecified (principal); R06.02 Shortness of breath
CPT/HCPCS: 36415; 71046; 80053; 83880; 85025

== ENCOUNTER 2020-10-14 09:21 | Day surgery (SDC) | payer MEDICARE, MEDICAID, SELFPAY ==
[2020-09-29 13:14] VITALS: BMI 52.4
[2020-10-14 09:40] VITALS: BP 170/90; PULSE 90; RESP 18; TEMP 36.8; O2SAT 96; BMI 52.9
[2020-10-14] MEDS: Lactated Ringers 1,000 ML 100 ML IV (09:40)
--- NOTE | 2020-10-14 10:54 | HP.PCM_ITS ---
HPI - General HPI Narrative RAKESH HEARN, is a 45 F who presents for cystoscopy with injection of Botox for treatment of her overactive bladder with urge incontinence. Informed consent has been obtained, she has been on oral antibiotics for the last few days and will not require anything intravenous regarding that matter. [facility] Medical History (Updated 10/14/20 @ 10:[address] Luisa Mendez MD) Anxiety and depression Asthma Cancer of left kidney Chronic cough Chronic neck and back pain COPD (chronic obstructive pulmonary disease) Diarrhea Diarrhea Fatigue Fatty stools GERD (gastroesophageal reflux disease) H/O emotional problems History of mononucleosis Incontinence Intestinal ulcer Limb weakness Loose, teeth Lung disease Mild chronic gastritis Overactive bladder Shortness of breath Shoulder pain Smoker SOB (shortness of breath) Venous insufficiency of both lower extremities Home Medications albuterol sulfate 90 mcg/actuation breath activated powder inhaler 2 inh INHALATION Q4H PRN 01/27/20 [History Last Taken 03/23/20] pantoprazole 40 mg tablet,delayed release 40 mg PO BID tab 01/27/20 [History Last Taken 10/14/20 06:30] budesonide-formoterol HFA 160 mcg-4.5 mcg/actuation aerosol inhaler 2 puff INHALATION BID #10.2 g 09/29/20 [Rx Last Taken 10/14/20 06:30] nitrofurantoin monohyd/m-cryst [Macrobid] 100 mg PO BID 10/12/20 [History Last Taken Unknown] Allergy/AdvReac Type Severity Reaction Status Date / Time cefaclor [From Ceclor] Allergy Hives Verified 10/14/20 09:43 ciprofloxacin Allergy Hives Verified 10/14/20 09:43 erythromycin base Allergy Upset Verified 10/14/20 09:43 [Erythromycin Base] Stomach moxifloxacin HCl Allergy Hives Verified 10/14/20 09:43 [From Avelox] Penicillins Allergy Upset Verified 10/14/20 09:43 Stomach sulfamethoxazole Allergy Unknown Verified 10/14/20 09:43 [From Bactrim] trimethoprim [From Bactrim] Allergy Unknown Verified 10/14/20 09:43 Family History Mother CVA (cerebral vascular accident) Thyroid disorder Ulcer Arthritis Father Diabetes Heart disease Myocardial infarction Arthritis Hypertension High cholesterol Skin cancer Son , age 17 Asthma Large B-cell lymphoma Other Anxiety Melanoma Respiratory disease Surgical History History of ankle surgery History of esophagogastroduodenoscopy (EGD) (~01/20/20) History of lymph node biopsy History of partial hysterectomy History of sinus surgery History of tonsillectomy Hx of cholecystectomy Hx of nasal septoplasty Hx of prior ablation treatment Hx of tonsillectomy Social History household members: children Smoking Status: Current every day smoker tobacco type: cigarettes Tobacco: How many years used: 25 alcohol intake: never substance use type: does not use what type of physical activity do you participate in: none do you feel safe at home: Yes ROS Constitutional Constitutional: Reports systems reviewed and no addt'l complaints, except as documented Eyes Eyes: Reports systems reviewed and no addt'l complaints, except as documented ENT HEENT: Reports systems reviewed and no addt'l complaints, except as documented Cardiovascular Cardiovascular: Reports systems reviewed and no addt'l complaints, except as documented Respiratory/Chest Respiratory/Chest: Reports systems reviewed and no addt'l complaints, except as documented Gastrointestinal Gastrointestinal: Reports systems reviewed and no addt'l complaints, except as documented Genitourinary Genitourinary: Reports urinary frequency, urinary incontinence and urinary urgency Musculoskeletal Musculoskeletal: Reports systems reviewed and no addt'l complaints, except as documented Integumentary Integumentary: Reports systems reviewed and no addt'l complaints, except as documented Neurologic Neurologic: Reports systems reviewed and no addt'l complaints, except as documented Psychiatric Psychiatric: Reports systems reviewed and no addt'l complaints, except as documented Vital Signs Vital Signs Vital Signs: 10/14/20 09:40 Temperature 98.2 F Temperature Source Temporal Pulse Rate 90 Respiratory Rate 18 Respiratory Pattern Normal Blood Pressure 170/90 H Blood Pressure Mean 116 Blood Pressure Source Monitor Blood Pressure Position Sitting Blood Pressure Location Right Forearm Pulse Ox 96 Oxygen Delivery Method Room Air Weight Weight: 144.3 kg Body Mass Index (BMI) 52.9 Physical Exam Const alert, oriented x3, no apparent distress and healthy appearing HEENT normocephalic, head/scalp atraumatic and hearing grossly normal bilaterally Eyes conjunctivae normal and no scleral icterus Neck supple General: trachea midline Lymph Lymphatic: no lymphedema noted Chest inspection of chest normal Chest: symmetrical chest wall rise Resp normal respiratory effort, normal air movement and no retractions Effort and Inspection: able to speak in complete sentences and symmetric chest movement Cardio regular rate and regular rhythm GI soft to palpation, non-tender and non-distended external exam normal Back/Spine no CVA tenderness Extremity normal to inspection Skin no rashes or lesions noted, no wounds, skin turgor normal and no jaundice Neuro oriented x3, CN's II-XII intact bilaterally and moves all extremities Psych mental status grossly normal, thought process normal, cooperative and affect normal Assessment & Plan Assessment/Plan (1) Overactive bladder: PLAN: Proceed with cystoscopy and injection of Botox 100 units under anesthesia (2) Urgency incontinence: Procedure Criteria Type of Procedure Procedure Type: Elective Elective Risks - COVID COVID Risk Discussion: The surgeon/proceduralist and patient have discussed in detail the risk of exposure to and/or potential harm posed by the COVID-19 virus with having a surgery/procedure at this time versus the risk of delaying the surgery/procedure. It is not possible to know either the risk of delaying the surgery or procedure or chance of getting an infection with perfect accuracy, but a joint decision was made between the patient and the surgeon/proceduralist to proceed at this time with the scheduled surgery/procedure as indicated on the consent form.
--- NOTE | 2020-10-14 10:58 | PCM.DC ---
Discharge Instructions Diet Discharge Diet: No restrictions Activity Discharge Activity: Return to Normal Activity May resume sexual activity in: No Restrictions Dressing / Incision Call your doctor if you observe: Fever of 101 or Higher, Inability to urinate, Inability to have a bowel movement and Uncontrolled pain Follow Up Care Please Follow Up With: Luisa Mendez MD When: Call office for appt to be seen early next week Test Results: Test results from this visit will be discussed in further detail at your follow-up appointment, if applicable. Discharge Plan Admission Attending Provider: Luisa Mendez Primary Care Provider: Ezequiel Lepe Instructions Patient Instructions: ED Chest Pain, Noncardiac Discharge Orders/Prescriptions Prescriptions: Continued pantoprazole 40 mg tablet,delayed release (DR/EC) 40 mg PO BID RF: 0 albuterol sulfate 90 mcg/actuation aerosol powdr breath activated 2 inh INHALATION Q4H PRN (Reason: Sob &/Or Wheezing) RF: 0 budesonide-formoterol [Symbicort] 160-4.5 mcg/actuation HFA aerosol inhaler 2 puff inhalation BID Qty: 10.2 RF: 2 nitrofurantoin monohyd/m-cryst [Macrobid] 100 mg Capsule 100 mg PO BID RF: 0 Referrals / Follow Up: Ezequiel Lepe MD [Primary Care Provider] - Disposition Disposition (needs filled in before D/C Order can be placed): Home, self care
--- NOTE | 2020-10-14 11:00 | PCM.OPRPT ---
Problems Associated Problem List Diagnoses (1) Overactive bladder: (2) Urgency incontinence: Report of Operation Date of Procedure: 10/14/20 Pre-Operative Diagnosis: Overactive bladder, urge incontinence Post-Operative Diagnosis: Same Surgery/Procedure Performed:: Cystoscopy, injection of Botox 100 units Surgeon: Luisa Mendez Type of Anesthesia: MAC Special Medications: Botox 100 units Description of Procedure: The patient was taken to the operating room and placed on the operating room table. Anesthesia monitored the head, neck, airway, IV access and vital signs throughout the case. Once anesthesia was appropriately ministered the patient was placed into dorsal lithotomy position was prepped and draped in usual sterile fashion. A cystourethroscopy was then performed with entrance through the urethra into the urinary bladder. The bladder mucosa was visualized in its entirety and found to be without areas of erythema ulceration or mass. At this time the Botox was injected 0.5 cc/inj. with a total of 20 injection sites. These were diffusely spread across the areas of detrusor hypertrophy. At the conclusion of the injections, the patient's bladder was emptied. The patient tolerated the procedure well and was awakened and taken to the recovery room in good condition. Grafts/Implants Used: None Complications None Admit VTE Documentation VTE Present on Admission: No VTE Mechan Device Prophylaxis: None VTE Pharm Prophylaxis ordered?: No Reason prophylaxis not ordered:: Treatment Not Indicated
[2020-10-14] MEDS: 0.9% Normal Saline (Pres. free 10 ML Vial (11:25)
[2020-10-14 11:45] VITALS: BP 116/67; BP 170/90; PULSE 85; RESP 16; TEMP 36.6; O2SAT 96
[2020-10-14 11:50] VITALS: BP 119/70; BP 170/90; PULSE 86; RESP 16; O2SAT 94
[2020-10-14 11:55] VITALS: BP 118/72; BP 170/90; PULSE 78; RESP 16; O2SAT 96
[2020-10-14 12:00] VITALS: BP 129/96; BP 170/90; PULSE 82; RESP 16; TEMP 36.7; O2SAT 99
[2020-10-14 12:29] VITALS: BP 170/90
== END 2020-10-14 12:31 | disposition home or self-care (01) ==
LOC: SDC 09:21 → AC 09:22
PROVIDERS: PCP Internal Medicine; Referring Provider Urology; Visit Provider Urology
PROC: 3E0K8GC Introduction of Other Therapeutic Substance into Genitourinary Tract, Via Natural or Artificial Opening Endoscopic (ICD-10-PCS; CPT 52287; principal; 2020-10-14 11:15)
DX: N32.81 Overactive bladder (principal); N39.41 Urge incontinence; G89.29 Other chronic pain; J44.9 Chronic obstructive pulmonary disease, unspecified; K21.9 Gastro-esophageal reflux disease without esophagitis; F32.9 Major depressive disorder, single episode, unspecified; F41.9 Anxiety disorder, unspecified; F17.210 Nicotine dependence, cigarettes, uncomplicated; Z79.51 Long term (current) use of inhaled steroids; Z79.899 Other long term (current) drug therapy; Z85.528 Personal history of other malignant neoplasm of kidney
CPT/HCPCS: 00910; 52287; C9803; J7120; A4216; J0585; J3490

== ENCOUNTER 2020-10-24 17:49 | Emergency (ER) | payer MEDICARE, MEDICAID, SELFPAY ==
[2020-10-24 17:49] VITALS: BP 158/93
[2020-10-24 17:51] VITALS: PULSE 96; RESP 25; TEMP 37.1; O2SAT 98; BMI 52.4
--- NOTE | 2020-10-24 18:41 | EKG12_ITS ---
Test Reason : CP Blood Pressure : / mmHG Vent. Rate : 094 BPM Atrial Rate : 094 BPM P-R Int : 132 ms QRS Dur : 074 ms QT Int : 376 ms P-R-T Axes : 071 049 040 degrees QTc Int : 470 ms Normal sinus rhythm Normal ECG Confirmed by VÍCTOR ALBA MD ([id number]), rewrite editor TIM ANTOINE ([id number]) on 10/27/2020 9:58:42 AM Referred By: XIN Confirmed By:VÍCTOR ALBA MD
[2020-10-24 18:45] VITALS: O2SAT 96
[2020-10-24 18:49] VITALS: BP 150/81; PULSE 90; RESP 22; O2SAT 97
[2020-10-24] MEDS: Aspirin 81 MG TAB.CHEW 324 MG PO (18:49)
[2020-10-24] MEDS: Mag Hydrox/Al Hydrox/Simeth 30 ML UDC PO (18:49)
--- NOTE | 2020-10-24 18:54 | RAD_ITS ---
STUDY: X-RAY CHEST REASON FOR EXAM: Female, 45 years old. Chest pain. TECHNIQUE: PA and lateral views of the chest. COMPARISON: 09/29/2020 FINDINGS: The lungs are clear and expanded. There is no demonstrated pleural abnormality. Normal size heart. Normal mediastinum and jalyn. Normal visualized pulmonary arteries. Normal visualized aortic arch and descending thoracic aorta. Normal visualized thoracic spine. Normal visualized ribs, clavicles, and shoulders. There is no demonstrated abnormality of the visualized soft tissue structures of the upper abdomen. RAD/Chest PA and Lateral IMPRESSION: Normal x-ray examination of the chest. No significant interval change. Electronically Signed: Carlitos Wells DO at 19:10 EDT Tel [phone], Service support ,
[2020-10-24 18:56] LABS: Absolute Neutrophil Count 8.4 X10^3/uL (2.0-7.7); Basophil# 0.06 X10^3/uL; Basophil% 0.4 % (0-1); Eosinophil# 0.17 X10^3/uL; Eosinophils% 1.2 % (0-5); Hematocrit 44.7 % (37-47); Hemoglobin 14.7 g/dL (12.0-15.0); Mean Corp Hgb Conc 32.9 g/dL (32-36); Mean Corpuscular Hgb 29.4 pg (27.0-32.0); Mean Corpuscular Volume 89.4 fL (81-99); Mean Platelet Vol. 10.1 fl (6.2-12.0); Monocyte# 0.64 X10^3/uL; Monocyte% 4.7 % (0-10); NRBC Flagged by Analyzer 0 % (0-5); Neutrophil # 8.42 X10^3/uL (2.7-7.7); Neutrophil % 61.4 % (47-70); Platelet Count 338 K/mm3 (150-450); RBC Distribution Width CV 13.2 % (11.6-14.6); White Blood Count 13.7 K/mm3 (4.4-11.0)
[2020-10-24 19:00] VITALS: BP 149/90; PULSE 88; RESP 20; O2SAT 98
[2020-10-24 19:15] LABS: AST(SGOT) 16 U/L (15-37); Alanine Aminotransfer ALT/SGPT 26 U/L (13-56); Albumin, Serum 3.3 g/dL (3.2-5.0); Alkaline Phosphatase 118 U/L (45-117); Anion Gap 10 (5-15); BUN 13 mg/dL (7-18); BUN/Creat Ratio 17.6 RATIO (10-20); Bilirubin, Direct 0.07 mg/dL (0.00-0.30); Calcium,Total 8.6 mg/dL (8.5-10.1); Chloride 105 mmol/L (98-107); Creatinine, Serum 0.74 mg/dL (0.55-1.02); EST Glomerular Filtration Rate 90 mL/min (>60); Est Glom Filt Rate - Afr Amer 109 mL/min (>60); Estimated Creatinine Clearance 84.57 ml/min; Globulin 4.1 g/dL (2.2-4.2); Glucose 124 mg/dL (74-106); Lipase 98 U/L (73-393); Potassium 3.6 mmol/L (3.5-5.1); Protein, Total 7.4 g/dL (6.4-8.2); Sodium Level 140 mmol/L (136-145)
[2020-10-24 20:09] VITALS: BP 135/82; PULSE 81; RESP 18; O2SAT 98
--- NOTE | 2020-10-24 20:09 | ED.VIS.CHEST ---
HPI History of Present Illness Chief Complaint: Chest Pain Narrative Narrative: Patient presenting for evaluation secondary to chest pain. Patient states that she has been having a left-sided substernal chest pain over the course of the last 4 days. She reports it will come and go. She does report that its been associated with some shortness of breath. She also feels that occasionally is worse with walking. Additionally the patient states that she has been dealing with significant reflux type symptoms over the course of this time. She does have an underlying history of tobacco use, COPD, hypertension, and hyperlipidemia. Patient had a stress test back in February that was found to be negative. She denies any DVT or PE risk factors. Review of systems otherwise negative. [facility] Medical History Anxiety and depression Asthma Cancer of left kidney Chronic cough Chronic neck and back pain COPD (chronic obstructive pulmonary disease) Diarrhea Diarrhea Fatigue Fatty stools GERD (gastroesophageal reflux disease) H/O emotional problems History of mononucleosis Incontinence Intestinal ulcer Limb weakness Loose, teeth Lung disease Mild chronic gastritis Overactive bladder Shortness of breath Shoulder pain Smoker SOB (shortness of breath) Venous insufficiency of both lower extremities Home Medications albuterol sulfate 90 mcg/actuation breath activated powder inhaler 2 inh INHALATION Q4H PRN 01/27/20 [History Last Taken 03/23/20] pantoprazole 40 mg tablet,delayed release 40 mg PO BID tab 01/27/20 [History Last Taken 10/14/20 06:30] budesonide-formoterol HFA 160 mcg-4.5 mcg/actuation aerosol inhaler 2 puff INHALATION BID #10.2 g 09/29/20 [Rx Last Taken 10/14/20 06:30] nitrofurantoin monohyd/m-cryst [Macrobid] 100 mg PO BID 10/12/20 [History Last Taken Unknown] Allergy/AdvReac Type Severity Reaction Status Date / Time cefaclor [From [facility]] Allergy Hives Verified 10/24/20 17:54 ciprofloxacin Allergy Hives Verified 10/24/20 17:54 erythromycin base Allergy Upset Verified 10/24/20 17:54 [Erythromycin Base] Stomach moxifloxacin HCl Allergy Hives Verified 10/24/20 17:54 [From Avelox] Penicillins Allergy Upset Verified 10/24/20 17:54 Stomach sulfamethoxazole Allergy Unknown Verified 10/24/20 17:54 [From Bactrim] trimethoprim [From Bactrim] Allergy Unknown Verified 10/24/20 17:54 Family History Mother CVA (cerebral vascular accident) Thyroid disorder Ulcer Arthritis Father Diabetes Heart disease Myocardial infarction Arthritis Hypertension High cholesterol Skin cancer Son , age 17 Asthma Large B-cell lymphoma Other Anxiety Melanoma Respiratory disease Surgical History History of ankle surgery History of esophagogastroduodenoscopy (EGD) (~01/20/20) History of lymph node biopsy History of partial hysterectomy History of sinus surgery History of tonsillectomy Hx of cholecystectomy Hx of nasal septoplasty Hx of prior ablation treatment Hx of tonsillectomy Social History household members: children Smoking Status: Current every day smoker tobacco type: cigarettes Tobacco: How many years used: 25 alcohol intake: never substance use type: does not use what type of physical activity do you participate in: none do you feel safe at home: Yes ROS ROS ED Constitutional Constitutional ED: Denies fever(s) Eyes Eyes: Denies change in vision ENT ENT ED: Denies rhinorrhea or sore throat Cardiovascular Cardiovascular: Reports as per HPI and chest pain Respiratory/Chest Respiratory/Chest: Reports dyspnea; Denies cough or dyspnea on exertion Gastrointestinal Gastrointestinal: Reports other Details: GERD ; Denies abdominal pain, nausea or vomiting Genitourinary Genitourinary ED: Denies dysuria Musculoskeletal Musculoskeletal: Denies myalgias or neck pain Integumentary Denies rash Neurologic Neurologic: Denies headache(s), paresthesias or weakness Psychiatric Psychiatric: Denies depression Endocrine Endocrinology: Denies polydipsia or polyuria Hematologic/Lymphatic Hematologic/Lymphatic: Denies easy bleeding or easy bruising Allergic/Immunologic Allergic/Immunologic ED: Denies urticaria EXAM Physical Exam Const Vital Signs: 10/24/20 17:49 10/24/20 17:51 10/24/20 17:54 Temperature 98.7 F Temperature Source Oral Pulse Rate 96 Respiratory Rate 25 H Respiratory Effort Short of Breath Blood Pressure 158/93 H Blood Pressure Mean 114 Pulse Ox 98 Oxygen Delivery Method Room Air 06/14/21 18:45 10/24/20 18:49 10/24/20 19:00 Temperature Temperature Source Pulse Rate 90 88 Respiratory Rate 22 H 20 H Respiratory Effort Blood Pressure 150/81 H 149/90 H Blood Pressure Mean 104 109 Pulse Ox 96 97 98 Oxygen Delivery Method Room Air Room Air Room Air Positive well nourished, well developed and obese General Appearance ED: well developed and NAD Nutritional Appearance: obese HEENT Reports moist mucous membranes normocephalic and atraumatic Eyes EOMs intact bilaterally Neck no lymphadenopathy, supple and no JVD Chest Wall inspection of chest normal Chest Narrative: No evidence of vesicular rash Chest: tenderness pectoral muscle Resp normal respiratory effort and clear to auscultation bilaterally Auscultation: Negative for rales, rhonchi or wheezes Cardio regular rate, regular rhythm, S1 normal heart sound, S2 normal heart sound and no murmurs Peripheral Pulses: radial pulses present and posterior tibial pulses present GI normal to inspection, nondistended, normoactive bowel sounds, soft to palpation and non-tender Extremity normal to inspection Extremity Narrative: Calves are supple no palpable cord General Extremety ED: Negative for edema or tenderness General Extremity: Negative for edema Neuro oriented x3 and no sensory deficits noted Sensorium / Orientation: awake and alert Motor Exam: strength abnormal Psych mental status grossly normal Skin no rashes or lesions noted Heart Score History: Moderately Suspicious ECG: Normal Age: >45 - <65 years Risk Factors: >/= 3 Risk Factors or History of CAD Troponin: </= Normal Limit Score: 4 MDM MDM MDM Narrative Medical decision making narrative: Patient presented secondary to chest pain. Patient reported that she had been having frequent GERD, I did give the patient a GI cocktail. CBC demonstrates mild leukocytosis at 13.7, chemistry was unremarkable including liver panel and lipase. Troponin was found to be negative. Patient does not require D-dimer testing as she is capital PE RC negative. Patient's chest x-ray by my personal review as well as radiology is found to be negative. Reviewed patient's records, she had a stress test back in February of last year that was negative. She does have a heart score of 4, but she has been having this intermittent pain over the course of the last 4 days has a negative cardiac enzyme and has a negative stress test within the last year I do think that she requires readmission at this time as it does seem rather more consistent with referred pain may be from her more frequent reflux. She admits that she is only been taking her Protonix once a day as opposed to the twice a day that it is prescribed. Patient was recommended to increase back to twice a day dosing. Patient was discharged in stable condition. Lab Data Labs: Laboratory Results - last 24 hr 10/24/20 10/24/20 18:04 18:04 WBC 13.7 H RBC 5.00 Hgb 14.7 Hct 44.7 MCV 89.4 MCH 29.4 MCHC 32.9 RDW Std Deviation 43.0 RDW Coeff of Saeid 13.2 Plt Count 338 MPV 10.1 Immature Gran % (Auto) 0.300 Neut % (Auto) 61.4 Lymph % (Auto) 32.0 Nuckolls % (Auto) 4.7 Eos % (Auto) 1.2 Baso % (Auto) 0.4 Absolute Neuts (auto) 8.4 H Absolute Lymphs (auto) 4.40 Nucleated RBC % 0 Sodium 140 Potassium 3.6 Chloride 105 Carbon Dioxide 25.0 Anion Gap 10 BUN 13 Creatinine 0.74 Estim Creat Clear Calc 84.57 Est GFR (MDRD) Af Amer 109 Est GFR (MDRD) Non-Af 90 BUN/Creatinine Ratio 17.6 Glucose 124 H Calcium 8.6 Total Bilirubin 0.20 Direct Bilirubin 0.07 AST 16 ALT 26 Alkaline Phosphatase 118 H Troponin I < 0.015 Total Protein 7.4 Albumin 3.3 Globulin 4.1 Lipase 98 Radiography Chest X-Ray - ED: 2 View, Read by ED Physician and Normal Diagnostic Testing: Radiology Impression Chest X-Ray 10/24/20 18:54 IMPRESSION: Normal x-ray examination of the chest. No significant interval change. Electronically Signed: Carlitos Wells DO at 19:10 EDT Tel [phone], Service support , EKG Initial EKG: Attestation: I personally reviewed and interpreted this EKG as follows: (Normal sinus rhythm [address] segments normal T waves normal [place] and QTc intervals no evidence of acute changes from May of this year no acute ischemia or arrhythmia) Discharge Plan Triage Chief Complaint: Chest Pain ED Provider: Ralph Lora Dx/Rx/DC Orders Clinical Impression: Chest pain Instructions: ED Chest Pain, Noncardiac Prescriptions: No Action pantoprazole 40 mg tablet,delayed release (DR/EC) 40 mg PO BID RF: 0 albuterol sulfate 90 mcg/actuation aerosol powdr breath activated 2 inh INHALATION Q4H PRN (Reason: Sob &/Or Wheezing) RF: 0 budesonide-formoterol [Symbicort] 160-4.5 mcg/actuation HFA aerosol inhaler 2 puff inhalation BID Qty: 10.2 RF: 2 nitrofurantoin monohyd/m-cryst [Macrobid] 100 mg Capsule 100 mg PO BID RF: 0 Primary Care Provider: Ezequiel Lepe Referrals: Ezequiel Lepe MD [Primary Care Provider] - 3-5 Days Disposition Disposition: Home, self care Discharge Date/Time: 10/24/20 20:10
== END 2020-10-24 20:10 | disposition home or self-care (01) ==
LOC: ED 17:59
PROVIDERS: Emergency Provider Emergency Medicine; PCP Internal Medicine
DX: R07.9 Chest pain, unspecified (principal); J44.9 Chronic obstructive pulmonary disease, unspecified; I10 Essential (primary) hypertension; E78.5 Hyperlipidemia, unspecified; N32.81 Overactive bladder; I87.2 Venous insufficiency (chronic) (peripheral); M54.9 Dorsalgia, unspecified; M54.2 Cervicalgia; G89.29 Other chronic pain; K21.9 Gastro-esophageal reflux disease without esophagitis; E66.9 Obesity, unspecified; F32.9 Major depressive disorder, single episode, unspecified; F41.9 Anxiety disorder, unspecified; F17.210 Nicotine dependence, cigarettes, uncomplicated; Z79.899 Other long term (current) drug therapy
CPT/HCPCS: 71046; 80048; 80076; 83690; 84484; 85025; 93005; 99284; A4216

== ENCOUNTER 2020-11-23 10:47 | Emergency (ER) | payer MEDICARE, MEDICAID, SELFPAY ==
[2020-11-23 10:50] VITALS: BP 150/97; PULSE 97; RESP 14; TEMP 36.3; O2SAT 96; BMI 53.1
--- NOTE | 2020-11-23 11:42 | RAD_ITS ---
HISTORY: Injury/Pain. TECHNIQUE: XR Spine Lumbar 2 or 3 Views. # of images incl. paperwork: 2. COMPARISON: 01/31/2020. FINDINGS: VERTEBRAE: 5 lumbar vertebral bodies. Vertebral body heights maintained. No acute fracture identified. Degenerative changes of the posterior elements. ALIGNMENT: No significant anterior or posterior subluxation. INTERVERTEBRAL DISCS: Degenerative endplate changes with mild intervertebral disc space narrowing. At multiple levels. RAD/Lumbar Spine 2 or 3 Views IMPRESSION: No acute fracture or dislocation identified in the lumbar spine. Degenerative changes. at 1251 Reported and signed by: Tanya Patiño MD Electronically Signed: Tanya Patiño MD at 12:50 EDT Tel , Service support ,
--- NOTE | 2020-11-23 11:42 | RAD_ITS ---
HISTORY: Injury/Pain. TECHNIQUE: XR Spine Thoracic 3 Views. # of images incl. paperwork: 4. COMPARISON: Chest 10/24/2020. FINDINGS: VERTEBRAE: Minimal chronic anterior wedging in the midthoracic spine. Vertebral body heights otherwise maintained. No acute fracture identified. VERTEBRAL ALIGNMENT: No significant anterior or posterior subluxation. INTERVERTEBRAL DISCS: Mild degenerative endplate changes with small osteophytes. SOFT TISSUES: Unremarkable paraspinal soft tissues. RAD/Thoracic Spine 3 Views IMPRESSION: No acute fracture or dislocation identified in the thoracic spine. at 1249 Reported and signed by: Tanya Patiño MD Electronically Signed: Tanya Patiño MD at 12:48 EDT Tel , Service support ,
--- NOTE | 2020-11-23 11:43 | RAD_ITS ---
HISTORY: Injury/Pain. TECHNIQUE: XR Ankle Min 3 Views. # of images incl. paperwork: 3. COMPARISON: None. FINDINGS: BONES: No acute fracture identified. Flattening and sclerosis of the talus.. JOINTS: No dislocation. Degenerative changes with osteophytes. SOFT TISSUES: Severe soft tissue swelling. 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 Severe soft tissue swelling without acute fracture or dislocation identified. Degenerative changes in the left ankle. at 1252 Reported and signed by: Tanya Patiño MD Electronically Signed: Tanya Patiño MD at 12:51 EDT Tel , Service support ,
[2020-11-23] MEDS: HYDROcodone Bitartrate/Apap 5/325 Tablet PO (11:49)
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
[2020-11-23 13:40] VITALS: RESP 18
== END 2020-11-23 13:41 | disposition home or self-care (01) ==
LOC: ED 11:51
PROVIDERS: Emergency Provider Emergency Medicine; PCP Internal Medicine
DX: S39.012A Strain of muscle, fascia and tendon of lower back, initial encounter (principal); S29.012A Strain of muscle and tendon of back wall of thorax, initial encounter; S93.402A Sprain of unspecified ligament of left ankle, initial encounter; V86.55XA Driver of 3- or 4- wheeled all-terrain vehicle (ATV) injured in nontraffic accident, initial encounter; Y93.9 Activity, unspecified; Y92.9 Unspecified place or not applicable; Y99.9 Unspecified external cause status; M54.2 Cervicalgia; G89.29 Other chronic pain; J44.9 Chronic obstructive pulmonary disease, unspecified; K21.9 Gastro-esophageal reflux disease without esophagitis; E66.9 Obesity, unspecified; F17.210 Nicotine dependence, cigarettes, uncomplicated; Z79.899 Other long term (current) drug therapy
CPT/HCPCS: 72072; 72100; 73610; 99283

== ENCOUNTER → 2021-01-18 09:27 | Outpatient (CLI) | payer MEDICARE, MEDICAID, SELFPAY ==
--- NOTE | 2021-01-19 09:22 | PFT ---
INTRODUCTION: The patient is a 45-year-old female that presents for pulmonary function studies secondary to a diagnosis of COPD. Respiratory therapy reported good patient effort. Bronchodilators were used during testing. INTERPRETATION: Forced expiration spirometry demonstrates no evidence of a large airways obstructive ventilatory defect with a postbronchodilator FEV1/FVC of 73%. There was no significant response to aerosolized bronchodilators. Spirograms are of good quality and plateau normally. Body plethysmography was performed and reveals lung volumes to be within normal limits. Diffusing capacity by single breath CO is reduced to 54% of predicted. IMPRESSION: Isolated moderate reduction in diffusing capacity, which could be related to an underlying pulmonary vascular disorder such as pulmonary hypertension. Clinical correlation is recommended.
== END ==
PROVIDERS: PCP Internal Medicine; Referring Provider Internal Medicine; Visit Provider Internal Medicine
DX: J44.9 Chronic obstructive pulmonary disease, unspecified (principal)
CPT/HCPCS: 94060; 94726; 94729

== ENCOUNTER → 2021-01-24 10:58 | Outpatient (CLI) | payer MEDICARE, MEDICAID, SELFPAY ==
--- NOTE | 2021-01-24 11:04 | MRI_ITS ---
STUDY: MRI LEFT ANKLE WITHOUT CONTRAST REASON FOR EXAM: Anterior and medial left ankle pain for 40 years. TECHNIQUE: Standardized fat and water weighted pulse sequences were obtained in all 3 orthogonal planes. COMPARISON: Radiographs 11/23/2020. FINDINGS: There is edema in the subcutis adipose space. Normal posterior tibialis tendon. Normal flexor digitorum longus tendon. Normal flexor hallucis longus tendon. There is a very small volume of fluid in the peroneal tendon sheath distal to the peroneal tubercle (T2 axial images 26, 27). The peroneus longus and brevis tendons are morphologically normal. Normal tibialis anterior tendon. Normal extensor hallucis longus tendon. Normal extensor digitorum longus tendons. Normal Achilles tendon and teno-osseous insertion. Normal plantar fascia. Normal plantar calcaneal tubercles. Normal intrinsic muscles of the rearfoot. There is mild thickening of the anterior tibiofibular ligament of the distal tibiofibular syndesmotic ligamentous complex (T2 axial image 15) consistent with scarring. Normal posterior tibiofibular ligament. There is scarring of the anterior talofibular ligament (T2 axial images 18, 19). The calcaneofibular and posterior talofibular ligaments appear intact. Normal subtalar ligaments and sinus tarsi. Normal deltoid ligamentous complexes. Normal plantar calcaneonavicular (spring) ligament. There is advanced tibiotalar arthrosis with marginal osteophytes, chondral thinning and subchondral cystic change/bone edema (inversion recovery sagittal images 12-15) with a small joint effusion. There is flattening of the talar dome (T1 sagittal images 15-18), a suspected sequelae of avascular necrosis. There is mild subchondral cystic change of the talus adjacent to the posterior subtalar articulation without chondral thinning of the posterior subtalar articulation. Normal talonavicular articulation. Normal calcaneocuboid articulation. Normal navicular-cuneiform articulations. 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 Scarring of the anterior talofibular ligament. Mild scarring of the anterior tibiofibular ligament. Very mild peroneal tenosynovitis. Small tibiotalar joint effusion. Electronically Signed: Ilia Woodard MD at 12:45 EDT Tel , Service support ,
== END ==
PROVIDERS: PCP Internal Medicine; Referring Provider Podiatrist Foot & Ankle Surgery; Visit Provider Podiatrist Foot & Ankle Surgery
DX: M65.872 Other synovitis and tenosynovitis, left ankle and foot (principal); M25.572 Pain in left ankle and joints of left foot; M79.672 Pain in left foot; M87.072 Idiopathic aseptic necrosis of left ankle
CPT/HCPCS: 73721

== ENCOUNTER → 2021-02-03 08:02 | Outpatient (CLI) | payer MEDICARE, MEDICAID, SELFPAY ==
--- NOTE | 2021-02-03 08:03 | ECHOD_ITS ---
Reason For Study: PHTN Procedure This was a 2D Doppler, Color Flow transthoracic echocardiogram. The study was technically difficult. Exam performed in department. Left Ventricle Normal LV size. Left ventricular systolic function is normal. The estimated ejection fraction is 65 %. Transmitral doppler flow suggestive of impaired relaxation of left ventricle. No regional wall motion abnormalities noted. Right Ventricle Normal RV size. Normal systolic function. Atria Normal left atrium. Normal right atrium. No doppler evidence for ASD. Mitral Valve There is no mitral annular calcification. Normal mitral valve. Trivial mitral valve insufficiency. Tricuspid Valve Normal tricuspid valve. Trivial tricuspid valve insufficiency. Right ventricular systolic pressure estimated to be 30 mmHg. Aortic Valve The aortic valve is not well visualized. Pulmonic Valve The pulmonic valve is not well visualized. Great Vessels Normal sized aortic root. Pericardium/Pleural No pericardial effusion. MMode/2D Measurements & Calculations LVIDd: 4.9 cm IVSd: 1.2 cm Ao root diam: 2.9 cm LVIDs: 3.2 cm LVPWd: 1.2 cm RVDd: 3.2 cm FS: 34.2 % LAV(MOD-bp): 46.4 ml LA A4 area: 16.5 cm2 LA dimension(2D): 3.4 cm LAV(MOD-bp) Indexed: 18.2 ml/m2 LAV(MOD-sp2): 44.4 ml LAV(MOD-sp4): 44.7 ml RA A4 area: 12.6 cm2 Time Measurements MV dec time: 0.15 sec Doppler Measurements & Calculations MV E max lenny: 74.0 cm/sec Lat Peak E' Lenny: 6.2 cm/sec Med Peak E' Lenny: 8.7 cm/sec MV A max lenny: 89.4 cm/sec E/E' lat: 11.9 E/E' med: 8.5 MV E/A: 0.83 PA V2 max: 122.9 cm/sec TR max lenny: 260.8 cm/sec TR max P.2 mmHg ECHO/Echo Complete Interpretation Summary The study was technically difficult. Left ventricular systolic function is normal. The estimated ejection fraction is 65 %. Trivial mitral valve insufficiency. Trivial tricuspid valve insufficiency. Transmitral doppler flow suggestive of impaired relaxation of left ventricle Ordering Physician: Ezequiel Lepe Referring Physician: Ezequiel Lepe Performed By: Kayla Li, DIONNE, RVT
== END ==
PROVIDERS: PCP Internal Medicine; Referring Provider Internal Medicine; Visit Provider Internal Medicine
DX: G47.33 Obstructive sleep apnea (adult) (pediatric) (principal)
CPT/HCPCS: 93306

== ENCOUNTER 2021-02-08 13:30 | Outpatient (RCR) | payer MEDICARE, MEDICAID, SELFPAY ==
[2020-11-28 08:32] VITALS: BMI 53.1
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
--- NOTE | 2021-01-25 13:05 | HP.PTREVAL_ITS ---
Dr. Ezequiel Lepe MD, It has been my pleasure to treat RAKESH HEARN over the last 2 visits for DORSALGIA. Please see the progress note below for an update on the physical therapy plan of care! Subjective: PATIENT REPORTS SHE SAW DR. BURDICK AND DAVE IS PENDING FEB 13 2021. BARIATIRIC SX IS ON HOLD DUE TO FINANCES. PATIENT REPORTS DR. BURDICK TOLD HER THAT SHE CAN'T GET AN MRI WITHOUT GOING TO PT BUT STATES I AM NOT FOR THIS PHYSICAL THERAPY AT ALL. DX'D WITH PULMONARY HYPERTENSION YESTERDAY BY PCP WITH BREATHING TEST. GOING TO HAVE ECHO CARDIOGRAM PENDING AND SLEEP APNEA TEST PENDING TOO. HAD LEFT FOOT MRI YESTERDAY AND WILL FOLLOW UP WITH HER FOOT DOCTOR SATURDAY. PATIENT DENIES ANY SIGNIFICANT CHANGES IN HER BACK PAIN OR LEG WEAKNESS SINCE INITIAL PT EVAL. Objective/Function: PATIENT WAS SEEN TODAY FOR RE-ASSESSMENT OF PROGRESS TOWARD THE SET PT GOALS AND THE NEED FOR FURTHER PHYSICAL THERAPY VS READINESS FOR DISCHARGE. EVAL WAS ABOUT 6 WKS AGO. UPON EXAM TODAY THERE ARE NO SIGNIFICANT CHANGES SINCE INITIAL EVALUATION. SHE HAS NOT BEEN OFFICIALLY CLEARED BY HER UROLOGIST FOR AQUATIC THERAPY BUT SHE IS GOING TO DISCUSS THIS WITH THEM BECAUSE SHE PREFERS WATER THERAPY. OVER-ALL PATIENT IS VERY FRUSTRATED WITH NEEDING TO DO PT BEFORE HAVING AN MRI. SHE DEMONSTRATED AND COMMUNICATED A GOOD UNDER STANDING OF ALL INTSTRUCTIONS Plan Plan: CONSIDER AQUATIC THERAPY IF OK'D BY UROLOGIST. KEEP AN EYE ON INSURANCE DATE LIMIT. POSTURE CORRECTION/STRENGTHENING, INSTRUCTION IN APPROPRIATE BODY MECHANICS AND ACTIVITY MODIFICATIONS. DLS STARTING WITH A NEUTRAL SPINE PROGRESSING ROM TOLERATED. KATIE LE ROM, STRETCHING AND STRENGTHENING. HEP INSTRUCTION. Balance/Gait/Functional tests - Balance/Special Test Scores Oswestry Low Back Score: 30 Goals Goal 1:: DECREASE C/O BACK PAIN Goal Time Frame: 4-6 Weeks Goal Progress: Not Progressing Goal 2:: IMPROVE PERSONAL CARE, LIFTING, WALKING, SITTING, STANDING, SLEEP, SOCIAL LIFE, TRAVEL AND HOMEMAKING FUNCTION. 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 For the Purpose of:: To decrease pain, To increase ROM, To improve muscle performance and motor function, To increase tolerance to activity/condition/position, To improve ability of physical actions for malinda e/community/work/leisure, To improve gait and locomotor functions Please do not hesitate to contact me at [phone] by phone or if you have questions or concerns regarding this new plan of care! Sincerely, Nelli Plascencia, PT, Cert MDT
--- NOTE | 2021-02-17 10:28 | HP.PT.NRP ---
RAKESH HERAN was seen in my office for initial evaluation on 12/06/20. The following Plan of Care was established for this patient: Initial Frequency: 2-3x /Week Initial Duration: 4-6 Weeks Patient/Client Instruction: Educate patient on: Condition, Plan of Care, Risk Factors For the Purpose of:: To improve self management Therapeutic Exercise to Include: Strength training, Body mechanics, Postural training, Flexibilty training, Neuromotor development, In an aquatic setting, Dynamic Lumbar Stabilization For the Purpose of:: To decrease pain, To increase ROM, To improve muscle performance and motor function, To increase tolerance to activity/condition/position, To improve ability of physical actions for home/community/work/leisure, To improve gait and locomotor functions This patient was last seen in our office . Pertinent comments regarding their Physical therapy will appear below: This patient cancelled her last scheduled PT visit reporting she is going to have surgery. We would be happy to resume PT as indicated when ok'd by physician after surgery. At this point I will be discontinuing this patient from physical therapy. I would be happy to see this patient again in the future if found appropriate by the physician. Thank you! Nelli Plascencia, PT, Cert MDT Balance/Gait/Functional tests - Balance/Special Test Scores Oswestry Low Back Score: 30
== END 2021-02-08 19:00 | disposition home or self-care (01) ==
LOC: PT 13:30
PROVIDERS: PCP Internal Medicine; Referring Provider Internal Medicine; Visit Provider Internal Medicine
DX: M54.9 Dorsalgia, unspecified (principal); G89.29 Other chronic pain
CPT/HCPCS: 97110; 97112; 97162; 97164; 97530

== ENCOUNTER → 2021-02-09 20:03 | Outpatient (CLI) | payer MEDICARE, MEDICAID, SELFPAY | PROVIDERS: PCP Internal Medicine; Visit Provider Internal Medicine | DX: G47.33 Obstructive sleep apnea (adult) (pediatric) (principal) | CPT/HCPCS: 95811 ==

== ENCOUNTER 2021-02-13 08:10 | Day surgery (SDC) | payer MEDICARE, MEDICAID, SELFPAY ==
--- NOTE | 2021-02-09 14:13 | HP.PCM_ITS ---
History and Physical Date of Admission: 02/13/21 Chief Complaint: Pain in neck,eddie shoulders,spinal column,lower back History of Present Illness: This is a 64 Y/O male who was seen and evaluated at our office today as a follow up. Pain: neck,eddie shoulders,lower back Quality: constant w/activity (standing) etc... Region: Reports pain in the neck into the shoulders and radiates down the spinal column into the lumbar and across the lower back. Severity: aching Timing: Aggravated by: sitting, lying down Relieved by: nothing Pain score (out of 10): 8 Other info: Patient is here for a follow up.Reports pain in the neck into the shoulders and down the spinal column into the lower back and radiates across.Reports the pain is constant varies in intensity with activity.States the lightheaded dizziness has improved since his hypertension medication was decreased.Needs refill on his cyclobenzeprine.Wants to discuss an injection in his neck.Wants to discuss a neck brace.Patient was diagnosed with spinal stenosis and surgery was advised,wants an opinion.Wants to discuss gabapentin for nerve pain.States he [facility]. Review of Systems: Patient denies any recent fever, chills, headache, change in weight without trying, vision or hearing problems. No cp, sob, dee, pnd, orthopnea, or peripheral edema.They note no lumps or swollen glands, no new rashes, changing moles, or change in bowel or bladder function.Mood has been good overall. Past Medical History: h/o HTN h/o pulmonary embolism h/o high cholesterol h/o Type II Diabetes h/o phlebitis h/o filter inferior vena cava s/p left knee arthroscopy s/p eddie CTR s/p back surgery-laminectomy 2006 s/p left TKR 06/2012 s/p Right TKR 08/2012 s/p tonsillectomy Family History: ======== Structured Family History ======== Mother: Hypertension Social History: [Tobacco: Former smoker (1 pk yrs / 30 yrs quit) Start Date: 06/24/2017 End Date: 06/24/2017 Pipe Smoker: No Cigar Smoker: No Chewing Tobacco User: No] Living situation: Occupation: Disabled Tobacco: Denies-Quit in 1987 EtOH: Denies Rec. drugs: Denies Allergies: No Known Allergies Medications: 1) amLODIPine 5 mg oral tablet, 1/2 tablet daily 2) aspirin 81 mg oral tablet, One tablet daily 3) atenolol 25 mg oral tablet, One tablet BID 4) Claritin 24 Hour Allergy 10 mg oral tablet, Take 1 tablet by mouth once daily 5) CoQ10 ST-100 Oral Capsule SOFTGEL(S), One tablet daily 6) cyclobenzaprine 10 mg oral tablet, 1/2 to 1 tablet PO TID PRN spasms. 7) HumaLOG KwikPen 100 units/mL subcutaneous solution, sliding scale before meals 8) hydroCHLOROthiazide 25 mg oral tablet, One tablet daily 9) losartan 100 mg oral tablet, One tablet daily 10) Toujeo SoloStar 300 units/mL subcutaneous solution, 100 units daily 11) Victoza 18 mg/3 mL subcutaneous solution, 18 ml shot daily 12) Vitamin D3 400 intl units oral capsule, Take 1 tablet by mouth once daily 13) warfarin 6 mg oral tablet, One tablet daily 14) xray of cervical spine, M54.2 Physical Examination: Wt: 363.4 lb Ht/Ln: 72 in BMI: 49.3 BP: 135/84 Pulse: 75 RR: 16 Temp: 97.3F Pain: 9 Well nourished and well developed, overweight, in no acute distress. Alert and oriented to person, place and time. Affect is normal and appropriate. Mucosa pink and moist. Respirations even and unlabored. Neck is supple without significant lymphadenopathy or thyromegaly. Abdomen soft & non-tender. No HSM or masses appreciated. Extremities show no cyanosis, clubbing, or edema. Gait is Antalgic. Bilateral cervical facet challenge is positive Cervical paraspinal muscle tenderness Cervical ROM is limited due to pain Lumbar facet challenge is positive Lumbar paraspinal muscle tenderness Lumbar ROM is limited due to pain Motor and sensory exam is unchanged. 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 (Transmitted by ALEX TAYLOR NP) Continue current medication regime, suggested tylenol use to help with the pain. OARRS was reviewed today. UDS was reviewed appears compliant. SOAPP score is 3 There are no signs of diversion or addiction with the pt, there is also no signs of abuse or misuse, continues to do well with their medications without any side effects, we will continue monitoring the pt closely. Reviewed with the pt today our opioid agreement and they appear to understand. PEG was reviewed today. Weight loss was recommended today through diet and exercise, Risks and benefits of the above meds were discussed with the pt and they appear to understand. The common side effects of the medications were discussed and all of their questions and concerns were answered and they appear to understand Discussed natural and expected course of this diagnosis and need to alert me if symptoms do not follow expected course, or if any worse. Pt is to continue with her PT and HEP. Pt has tried multiple modalities with no success, we will schedule the pt for a therapeutic/diagnostic caudal epidural steroid injection under fluoroscopy We have discussed the risks, benefits as well as alternatives of the procedure and the patient appears to understand and would like to proceed with the above plan. The above plan was discussed today with the pt in details and they appear to understand and agrees to continue with the plan.
--- NOTE | 2021-02-10 08:41 | HP.PCM_ITS ---
History and Physical Date of Admission: 02/13/21 Chief Complaint: Pain-neck,right shoulder,mid-low back,left ankle History of Present Illness: This is a 45 Y/O female who was seen and evaluated at our office today as a new consult.Pt was referred to this office by Dr Lepe. Pt has multiple complaints of pain but when asked which region hurts the most her chief complaint is low back pain, denies radicular pain. Pt states she has had this pain for over1 year, states in the last 6-7 months the pain has become severe. Pt states the pain is in one spot,states it is really sharp pain, pt states she feels as if her back is about to break. Pt states standing and walking makes the pain worse, laying down or sitting will make it better. Pt states she received an order for PT, she went to the initial appt and has not been back. Pt has had an xray of her back. Pt states she is here because she was referred here for her pain however, the pt states she is apprehensive to have treatment. Pt states she has had injections in the past which caused increase in pain, states she doesnt want medication. Pt also states she has currently started treatment to reduce her weight at [employer]. Pain: neck,right shoulder,mid-low back,left ankle Quality: constant,varies in intensity Region: Neck pain and occasional headaches and has pain in the right shoulder d/t bone spur.Reports pain in the mid-low back radiates across and reports pain in the left ankle.Also has eddie knee pain. Severity: back-aching,sharp.left ankle-pressure.right shoulder-aching Timin Aggravated by: walking,standing Relieved by: laying down Pain score (out of 10): 01/20 Other info: Patient has had Xrays,PT and injections in the past.Reports neck pain and headaches on occasion.Reports pain in the right shoulder due to spurs.Reports pain in her mid-lower back radiates across and is constant.States the more she is on her feet the higher the pain level.Reports pressure in the left ankle. Review of Systems: weight gain,weakness,vision problems,blurred vision,SOB, coughing,asthma,difficulty breathing,bloody urine,incontinence, sexual difficulty,frequent sinus problems,allergies,lower back,, injury,spinal trauma,muscle pain,nipple discharge. Past Medical History: h/o cancer-left kidney h/o fatigue h/o asthma h/o ulcers h/o Arthritis h/o compression fx-left ankle h/o anxiety h/o depression h/o panic attacks h/o emphysema h/o chronic obstructive pulmonary disease h/o gastroesophageal reflux disease h/o Gastritis h/o overactive bladder h/o venous insufficiency-lower extremities h/o Bi-polar h/o kidney stone s/p tonsillectomy s/p hysterectomy s/p left ankle surgery-spurs removed s/p lymph node biopsy s/p sinus surgery-nasal septoplasty s/p Cholecystectomy Family History: ======== Structured Family History ======== Father: Cancer, Hypertension, Heart disease, Diabetes mellitus, Myocardial infarction, Arthritis, Hypercholesterolemia Mother: Cerebrovascular accident, Arthritis, Ulcer, Thyroid disorder Son: B-cell lymphoma, Asthma Social History: [Tobacco: Current every day smoker (1 ppd x 22 yrs = 22 pk yrs) Start Date: 12/09/2020 Pipe Smoker: No Cigar Smoker: No Chewing Tobacco User: No Electronic Cigarette User: No] Living situation: Occupation: Disability Tobacco: Cigarettes EtOH: Denies Rec. drugs: Denies Allergies: penicillin, cefaclor, erythromycin, Avelox, Bactrim Medications: 1) albuterol 2.5 mg/3 mL (0.083%) inhalation solution, 2 puffs as directed prn 2) ibuprofen 200 mg oral capsule, Take 4 tablet by mouth every morning 3) pantoprazole 40 mg oral delayed release tablet, Take 1 tablet by mouth 2 times a Day Physical Examination: Wt: 322 lb Ht/Ln: 64 in BMI: 55.3 BP: 115/72 Pulse: 93 RR: 18 Temp: 96.4F Pain: 9 Well nourished and well developed in no acute distress. Affect is normal and appropriate. Mucosa pink and moist. Chest respirations are unlabored Neck is supple without significant lymphadenopathy or thyromegaly. Abdomen obese soft & non-tender. No HSM or masses appreciated. Extremities show no cyanosis or clubbing, below the knee +1 pitting edema observed. Musculoskeletal exam: pt is ambulating to and from the examination room with an antalgic gait without any assistance of any devices, pt was able to ambulate on her heels and tip toes without difficulty, ROM of the lumbar spine is limited to 40 degrees flexion and 20 degrees extension, lateral rotation with pain, negative spurling's test, on inspection of the lower back there is no surgical scar alignment of the spine is normal. On superficial and deep palpation there is tenderness at the bilateral paraspinal muscle without muscle spasms, there is no step off on the spinous process. There is tenderness and positive facet challenge bilateral, negative SI joint tenderness , SLR test is positive at 10% on the right and positive at 10% on the left, ANGELICA test is positive on the right and positive on the left, motor function is 5/5 on the right muscles and 5/5 on the left muscles, sensory exam intact to light touch on the right and the left, reflexes are symmetrical bilateral and brisk on the right knee jerk and 1+ Achilles and brisk on the left knee jerk and 1+ Achilles, pulses and capillary refill Goals: Health Concerns: Assessment & Plan: # Degeneration of lumbosacral intervertebral disc (M51.37): # Lumbosacral spondylosis (M47.817): # Arthropathy of lumbar facet (M46.96): # Taking multiple medications for chronic disease (Z79.899): Pt to continue current plan of care Discussed at length options to treat her pain including PT. Pt became upset with considering returning to therapy as she states they told her there was nothing they could do to help her. Pt states she does not want pain injections. Explained to the pt this practice uses sedation to help with having the injection done, pt wants to think about it. OARRS was reviewed today. UDS was performed today and will be reviewed on the next encounter to monitor pt medications compliance. SOAPP score is 9 Xray of the lumbar spine was reviewed with the pt today and they appear to understand. There are no signs of diversion or addiction with the pt, there is also no signs of abuse or misuse, continues to do well with their medications without any side effects, we will continue monitoring the pt closely. Life style modifications were also discussed today and the pt appears to understand. Pt has tried multiple modalities in the past with little or no success, will schedule the pt for a therapeutic/diagnostic caudal epidural steroid injection under fluoroscopy We have discussed the risks, benefits as well as alternatives of the procedure and the patient appears to understand and would like to proceed with the above plan. Reviewed with the pt today our opioid agreement and they appear to understand. PEG was reviewed today. Smoking cessation was discussed today and pt was encouraged. Weight loss was recommended today through diet and exercise Risks and benefits of the above meds were discussed with the pt and they appear to understand. The common side effects of the medications were discussed and all of their questions and concerns were answered and they appear to understand Discussed natural and expected course of this diagnosis and need to alert me if symptoms do not follow expected course, or if any worse. Pt is to continue with her PT and HEP. Pt will follow up if she decides to pursue treatment. The above plan was discussed today with the pt in details and they appear to understand and agrees to continue with the plan.
[2021-02-13] VITALS (7 sets, daily range): BP systolic 103–153; BP diastolic 57–91; PULSE 75–89; RESP 16–20; TEMP 36.3–36.6; O2SAT 95–97; BMI 54.3
[2021-02-13] MEDS: Lactated Ringers 1,000 ML 100 ML IV (09:09)
--- NOTE | 2021-02-13 09:50 | RAD_ITS ---
PROCEDURE: CAUDAL EPIDURAL STEROID INJECTION INDICATION: 45-year-old female with low back pain. EXAMINATION/TECHNIQUE: X-RAY - IR Fluoro Guide Injection Spine Total Fluoroscopic Time: 13.2 seconds Fluoroscopic Images: 1 Fluoroscopy Dose: 11.51 mGy COMPARISON: 11/23/2020 FINDINGS: A single spot fluoroscopic image was obtained intra-operatively demonstrating a needle superimposed over the caudal hiatus with contrast injection. No radiologist was present for the procedure, please refer to operative report for details. RAD/Fluor Guidance for Spine Inj IMPRESSION: Please refer to operative report for details. Electronically Signed: Giovanni Medrano MD at 14:28 EDT Tel , Service support ,
[2021-02-13] MEDS: Lidocaine 1% (5 ml sdv) 5 ML Vial (09:56)
[2021-02-13] MEDS: MethylPREDNISolone Acetate 80 MG/ML Vial (09:57)
[2021-02-13] MEDS: Bupivacaine 0.25% 30 ML Vial (09:57)
[2021-02-13] MEDS: 0.9% Normal Saline (Pres. free 10 ML Vial (09:57)
--- NOTE | 2021-02-13 15:52 | OP.PCM_ITS ---
Report of Operation Date of Procedure: 02/13/21 Pre-Operative Diagnosis: Lumbosacral radiculopathy, lumbosacral degenerative di sc disease, lumbosacral spinal stenosis Post-Operative Diagnosis: Lumbosacral radiculopathy, lumbosacral degenerative disc disease, lumbosacral spinal stenosis Surgery/Procedure Performed:: Caudal epidural steroid injection under fluoroscopic guidance Type of Anesthesia: MAC Estimated Blood Loss (mL): Minimal Description of Procedure: DESCRIPTION OF PROCEDURE: History and physical of today was reviewed. Risks and benefits of the procedure were explained. The patient understood and agreed to proceed. Informed consent was obtained. IV inserted per routine protocol. The patient was taken to the operating room and placed in the prone position with a pillow positioned underneath the abdomen. The lower back and tailbone area was prepped and draped in a sterile fashion using iodine x3. Under fluoroscopy guidance on a lateral view, the caudal space was identified. The skin and subcutaneous tissue was anesthetized with approximately 3 mL of 1% lidocaine using a 25-gauge regular needle. Under direct visualization with fluoroscopy, using a 22-gauge 3-1/2-inch spinal needle, the needle was advanced via the skin through the sacral hiatus. The tip of the needle was passed through the sacrococcygeal ligament and advanced to approximately S4 area. After negative aspiration of blood or CSF, a total of 3 mL of contrast was injected to confirm correct placement of the needle as well as cephalad spread. The spread was followed to approximately L5 area. After confirmation on AP as well as lateral view and repeated negative aspiration, a total of 15 mL of preservative-free 0.125% Marcaine with 80 mg of Depo-Medrol was injected easily. The needle was then removed intact. The patient experienced no sign or symptoms of intrathecal or intravascular injection. The patient experienced no paresthesia. The procedure was completed without any apparent difficulty or any complications. The patient appeared to tolerate it well. ASSESSMENT AND PLAN: This is a 45-year-old female with lumbosacral radiculopathy, lumbosacral degenerative disc disease, lumbosacral spinal stenosis status post caudal epidural steroid injection, patient will continue her current medications, patient will follow in approximately 2 weeks for reevaluation. Complications None
== END 2021-02-13 10:33 | disposition home or self-care (01) ==
LOC: SDC 08:12 → AC 08:51
PROVIDERS: PCP Internal Medicine; Referring Provider Anesthesiology Pain Medicine; Visit Provider Anesthesiology Pain Medicine
PROC: 3E0S3BZ Introduction of Anesthetic Agent into Epidural Space, Percutaneous Approach (ICD-10-PCS; CPT 62282; principal; 2021-02-13 09:45)
DX: M51.37 Other intervertebral disc degeneration, lumbosacral region (principal); M51.17 Intervertebral disc disorders with radiculopathy, lumbosacral region; M47.27 Other spondylosis with radiculopathy, lumbosacral region; M48.07 Spinal stenosis, lumbosacral region; M25.561 Pain in right knee; M25.562 Pain in left knee; M54.2 Cervicalgia; J44.9 Chronic obstructive pulmonary disease, unspecified; F41.0 Panic disorder [episodic paroxysmal anxiety]; K21.9 Gastro-esophageal reflux disease without esophagitis; M19.90 Unspecified osteoarthritis, unspecified site; F41.9 Anxiety disorder, unspecified; F17.210 Nicotine dependence, cigarettes, uncomplicated; Z79.1 Long term (current) use of non-steroidal anti-inflammatories (NSAID); Z79.899 Other long term (current) drug therapy
CPT/HCPCS: 01992; 62323; 64483; 77003; J7120; J3490

== ENCOUNTER 2021-02-15 08:33 | Emergency (ER) | payer MEDICARE, MEDICAID, SELFPAY ==
[2021-02-15 08:34] VITALS: BP 176/115; PULSE 87; RESP 18; TEMP 36.4; O2SAT 95; BMI 53.4
[2021-02-15 08:36] VITALS: BP 176/115; PULSE 87; RESP 18; TEMP 36.4; O2SAT 95
--- NOTE | 2021-02-15 09:07 | EDS_ITS ---
HPI History of Present Illness Chief Complaint: General Illness Onset/Context/Timing Onset: Days Context: Gradual Onset Current Severity: Moderate Maximum Severity: Moderate Narrative Narrative: Patient presents with 1 week history of cough and congestion. This started after she underwent a sleep study. 2 days ago patient had steroid injection in her lower back. Following this she has had fever up to 101 and increased low back pain. She reports problems with bladder control at baseline and this is unchanged from normal. Pain does not radiate down her legs. [facility] Medical History Abdominal wall abscess Anxiety Anxiety and depression Arthritis Asthma Bladder disease Cancer of left kidney Chronic back pain Chronic cough Chronic neck and back pain COPD (chronic obstructive pulmonary disease) Depression Diarrhea Diarrhea Fatigue Fatty stools Gastric reflux GERD (gastroesophageal reflux disease) H/O emotional problems History of echocardiogram History of edema History of hiatal hernia History of mononucleosis History of renal disease History of stress test History of ulceration Incontinence Intertriginous dermatitis associated with moisture Intestinal ulcer Left ankle pain Limb weakness Loose, teeth Lung disease Mild chronic gastritis MARGARITA (obstructive sleep apnea) Overactive bladder Pulmonary hypertension Shortness of breath Shoulder pain Smoker SOB (shortness of breath) Venous insufficiency of both lower extremities Wears glasses Home Medications albuterol sulfate 90 mcg/actuation breath activated powder inhaler 2 inh INHALATION Q4H PRN 01/27/20 [History Last Taken 03/23/20] pantoprazole 40 mg tablet,delayed release 40 mg PO BID tab 01/27/20 [History Last Taken 02/13/21] Handicap Placard #1 ea 11/28/20 [Rx Last Taken Unknown] Allergy/AdvReac Type Severity Reaction Status Date / Time cefaclor [From Ceclor] Allergy Hives Verified 02/15/21 08:36 erythromycin base Allergy Upset Verified 02/15/21 08:36 [Erythromycin Base] Stomach moxifloxacin HCl Allergy Hives Verified 02/15/21 08:36 [From Avelox] Penicillins Allergy Upset Verified 02/15/21 08:36 Stomach sulfamethoxazole Allergy Unknown Verified 02/15/21 08:36 [From Bactrim] trimethoprim [From Bactrim] Allergy Unknown Verified 02/15/21 08:36 Family History Mother CVA (cerebral vascular accident) Thyroid disorder Ulcer Arthritis Father Diabetes Heart disease Myocardial infarction Arthritis Hypertension High cholesterol Skin cancer Son , age 17 Asthma Large B-cell lymphoma Other Anxiety Melanoma Respiratory disease Surgical History History of ankle surgery History of esophagogastroduodenoscopy (EGD) (~01/20/20) History of lymph node biopsy History of partial hysterectomy History of sinus surgery History of tonsillectomy Hx of cholecystectomy Hx of cystoscopy Hx of nasal septoplasty Hx of prior ablation treatment Hx of tonsillectomy Social History household members: children Smoking Status: Current every day smoker tobacco type: cigarettes Tobacco: How many years used: 25 alcohol intake: never substance use type: does not use what type of physical activity do you participate in: none do you feel safe at home: Yes ROS ROS ED Constitutional Constitutional ED: Reports fever(s); Denies chills Eyes Eyes: Denies change in vision ENT ENT ED: Denies sore throat Cardiovascular Cardiovascular: Denies chest pain Respiratory/Chest Respiratory/Chest: Reports cough and sputum; Denies dyspnea Gastrointestinal Gastrointestinal: Denies abdominal pain, diarrhea, nausea or vomiting Genitourinary Genitourinary ED: Denies dysuria Musculoskeletal Musculoskeletal: Reports back pain Integumentary Denies rash Neurologic Neurologic: Denies headache(s) or weakness Allergic/Immunologic Allergic/Immunologic ED: Denies urticaria EXAM Physical Exam Const Vital Signs: 02/15/21 08:34 02/15/21 08:36 02/15/21 08:54 Temperature 97.6 F L 97.6 F L Temperature Source Temporal Temporal Pulse Rate 87 87 Respiratory Rate 18 18 Respiratory Effort Short of Breath Respiratory Pattern Normal Blood Pressure 176/115 H 176/115 H Blood Pressure Mean 135 135 Pulse Ox 95 95 Oxygen Delivery Method Room Air Room Air Positive well nourished and well developed General Appearance ED: well developed HEENT Reports normocephalic and head/scalp atraumatic Eyes PERRL and EOMs intact bilaterally Neck supple Chest Wall inspection of chest normal and palpation of chest normal Resp normal respiratory effort and clear to auscultation bilaterally Cardio regular rate and regular rhythm GI normal to inspection, nondistended, normoactive bowel sounds Palpation: soft Back/Spine no CVA tenderness Back/Spine Narrative: Mild tenderness in the right lumbar paraspinal muscles. No erythema or midline tenderness. Extremity normal to inspection Neuro oriented x3 Neuro Narrative: No focal neuro deficits. Sensorium / Orientation: alert Psych mental status grossly normal Skin no rashes or lesions noted MDM MDM MDM Narrative Medical decision making narrative: Lab work, Covid swab, blood cultures obtained. MRI lumbar spine with contrast ordered due to fever and recent injection. Patient was given morphine and Zofran for pain control. Lab Data Attestation: I reviewed the patient's lab results. Labs: Laboratory Results - last 24 hr 02/15/21 02/15/21 02/15/21 09:20 09:40 09:56 WBC 14.4 H RBC 4.88 Hgb 14.3 Hct 43.1 MCV 88.3 MCH 29.3 MCHC 33.2 RDW Std Deviation 41.7 RDW Coeff of Saeid 12.8 Plt Count 325 MPV 10.4 Immature Gran % (Auto) 0.600 Neut % (Auto) 71.6 H Lymph % (Auto) 21.6 Centre % (Auto) 5.1 Eos % (Auto) 0.7 Baso % (Auto) 0.4 Absolute Neuts (auto) 10.3 H Absolute Lymphs (auto) 3.11 Nucleated RBC % 0 Sodium 139 Potassium 4.3 Chloride 105 Carbon Dioxide 27.0 Anion Gap 7 BUN 14 Creatinine 0.64 Estim Creat Clear Calc 97.78 Est GFR (MDRD) Af Amer 128 Est GFR (MDRD) Non-Af 106 BUN/Creatinine Ratio 22.0 H Glucose 96 Calcium 9.0 Urine Color Yellow Urine Clarity Sl. Cloudy Urine pH 6.0 Ur Specific [place] 1.015 Urine Protein Negative Urine Glucose (UA) Normal Urine Ketones Negative Urine Occult Blood 25 H Urine Nitrite Negative Urine Bilirubin Negative Urine Urobilinogen Normal Ur Leukocyte Esterase Negative Urine RBC 0-5 SEEN Urine WBC 0 SEEN Ur Squamous Epith Cells 0-5 SEEN Urine Bacteria 0 SEEN Urine Mucus 0 SEEN Radiography Chest X-Ray - ED: 1 View, Read by ED Physician and Chronic Changes Diagnostic Testing: Radiology Impression Lumbar Spine MRI 02/15/21 09:55 IMPRESSION: Mild focal degenerative disc disease at L2/L3 as described above. Electronically Signed: Yuri Germain MD at 12:43 EDT Tel , Service support , Chest X-Ray 02/15/21 10:30 IMPRESSION: Nonacute, stable portable x-ray examination of the chest. Electronically Signed: Jose Oconnell MD ([place]) at 11:05 EDT , Service support , Treatment and Re-Evaluation Comments:: Chest x-ray reveals no focal infiltrate per my interpretation as well as radiologist interpretation. Covid swab is negative. No evidence of urinary infection. White count is elevated at 14.4, however when reviewing her prior labs she tends to run a baseline of 13-14. MRI of the lumbar spine reveals degenerative disc disease but no evidence of abscess or hematoma. Test results discussed with the patient. She is reassured with these findings and will continue supportive care. She was advised to follow-up with her pain management doctor. Discharge Plan Triage Chief Complaint: General Illness ED Provider: Kristi Rodriguez Dx/Rx/DC Orders Clinical Impression: Acute exacerbation of chronic low back pain, Fever Instructions: ED FUO Adult Prescriptions: No Action pantoprazole 40 mg tablet,delayed release (DR/EC) 40 mg PO BID RF: 0 albuterol sulfate 90 mcg/actuation aerosol powdr breath activated 2 inh INHALATION Q4H PRN (Reason: Sob &/Or Wheezing) RF: 0 (DME) Handicap Placard See Rx Instructions .ROUTE .MEDSUPPLY Qty: 1 RF: 0 Primary Care Provider: Ezequiel Lepe Referrals: Ezequiel Lepe MD [Primary Care Provider] - Davis Westbrook MD [STAFF PHYSICIAN] - As soon as possible Disposition Disposition: Home, Self Care
[2021-02-15] MEDS: morphine 10 MG/ML Syringe 8 MG IM (09:35)
[2021-02-15] MEDS: Ondansetron 4 MG/2 ML Vial IV ×2 (09:35→13:18)
[2021-02-15 09:47] LABS: Anion Gap 7 (5-15); BUN 14 mg/dL (7-18); Chloride 105 mmol/L (98-107); Creatinine, Serum 0.64 mg/dL (0.55-1.02); EST Glomerular Filtration Rate 106 mL/min (>60); Est Glom Filt Rate - Afr Amer 128 mL/min (>60); Estimated Creatinine Clearance 97.78 ml/min; Glucose 96 mg/dL (74-106); Potassium 4.3 mmol/L (3.5-5.1); Sodium Level 139 mmol/L (136-145)
--- NOTE | 2021-02-15 09:55 | MRI_ITS ---
STUDY: MRI LUMBAR SPINE WITH AND WITHOUT CONTRAST REASON FOR EXAM: Female, 45 years old. back pain -- fever and increased pain after injection TECHNIQUE: Standardized fat and water weighted pulse sequences were obtained in the sagittal and axial planes. dotarem 29 ml IV was administered for the contrast portion of the examination. COMPARISON: X-ray 11/23/2020 FINDINGS: T12-L1: Normal endplates. Normal disc height, hydration and morphology. Normal bilateral facet joints. Normal central canal and bilateral lateral recesses. Normal bilateral intervertebral neural foramina. Normal lumbar lordosis. There is no substantial scoliosis. Normal conus medullaris that terminates at the L1/L2. L1-2: Normal endplates. Normal disc height, hydration and morphology. Normal bilateral facet joints. Normal central canal and bilateral lateral recesses. Normal bilateral intervertebral neural foramina. L2-3: Mild broad disc protrusion produces mild spinal stenosis and mild bilateral neural foraminal stenosis. L3-4: Normal endplates. Normal disc height, hydration and morphology. Normal bilateral facet joints. Normal central canal and bilateral lateral recesses. Normal bilateral intervertebral neural foramina. L4-5: Normal endplates. Normal disc height, hydration and morphology. Normal bilateral facet joints. Normal central canal and bilateral lateral recesses. Normal bilateral intervertebral neural foramina. L5-S1: Normal endplates. Normal disc height, hydration and morphology. Normal bilateral facet joints. Normal central canal and bilateral lateral recesses. Normal bilateral intervertebral neural foramina. Normal visualized sacral ala. Moderate friction related edema in the posterior subcutaneous fat. There is no demonstrated abnormal enhancement. MRI/Spine Lumbar W/WO Contrast IMPRESSION: Mild focal degenerative disc disease at L2/L3 as described above. Electronically Signed: Yuri Germain MD at 12:43 EDT Tel , Service support ,
[2021-02-15 09:56] LABS: Absolute Lymphocyte Count 3.11 X10^3/uL (0.83-4.51); Absolute Neutrophil Count 10.3 X10^3/uL (2.0-7.7); Basophil# 0.06 X10^3/uL; Basophil% 0.4 % (0-1); Eosinophils% 0.7 % (0-5); Hematocrit 43.1 % (37-47); Hemoglobin 14.3 g/dL (12.0-15.0); Lymphocyte # 3.11 X10^3/ul (0.83-4.51); Lymphocyte % 21.6 % (19-41); Mean Corp Hgb Conc 33.2 g/dL (32-36); Mean Corpuscular Hgb 29.3 pg (27.0-32.0); Mean Corpuscular Volume 88.3 fL (81-99); Mean Platelet Vol. 10.4 fl (6.2-12.0); Monocyte# 0.73 X10^3/uL; Monocyte% 5.1 % (0-10); NRBC Flagged by Analyzer 0 % (0-5); Neutrophil # 10.32 X10^3/uL (2.7-7.7); Neutrophil % 71.6 % (47-70); Platelet Count 325 K/mm3 (150-450); RBC Distribution Width CV 12.8 % (11.6-14.6); RBC Distribution Width SD 41.7 fl (35.1-43.9); Red Blood Count 4.88 M/mm3 (4.2-5.4); White Blood Count 14.4 K/mm3 (4.4-11.0)
[2021-02-15 10:01] LABS: Bacteria 0 SEEN /hpf (None Seen); Mucous, Urine 0 SEEN /hpf (<or=2+); White Blood Cells 0 SEEN /hpf (0-5)
[2021-02-15 10:03] LABS: Color, Urine Yellow (Yellow); Glucose, Dipstick Normal (Normal); Ketone-Dipstick Negative (Negative); Leukocyte Esterase-Dipstick Negative /ul (Negative); Nitrite-Dipstick Negative (Negative); Occult Blood-Urine 25 /ul (Negative); Protein-Dipstick Negative (Negative); Specific Gravity, Urine 1.015 (1.002-1.030); Urine Bilirubin Dipstick Negative (Negative); Urine Clarity Sl. Cloudy (Clear); Urine Urobilinogen Normal (Normal)
[2021-02-15 10:10] LABS: Red Blood Cells-Urine 0-5 SEEN /hpf (0-5); Squamous Epithelial Cells - UA 0-5 SEEN /hpf (5-10)
--- NOTE | 2021-02-15 10:30 | RAD_ITS ---
STUDY: X-RAY CHEST REASON FOR EXAM: Female, 45 years old. cough TECHNIQUE: AP COMPARISON: 10/24/2020 FINDINGS: EKG leads project over the chest. Nodule in the right lung base is stable. No airspace consolidation. There is no demonstrated pleural abnormality. Normal size heart. Normal mediastinum and jalyn. Normal visualized pulmonary arteries. Normal visualized aortic arch and descending thoracic aorta. Normal visualized thoracic spine. Normal visualized ribs, clavicles, and shoulders. There is no demonstrated abnormality of the visualized soft tissue structures of the upper abdomen. RAD/Chest 1 View (Portable) IMPRESSION: Nonacute, stable portable x-ray examination of the chest. Electronically Signed: Jose Oconnell MD ([place]) at 11:05 EDT , Service support ,
[2021-02-15] MEDS: Morphine 4 MG/ML Syringe IV (13:18)
[2021-02-15 13:54] VITALS: PULSE 87; RESP 16; O2SAT 97
== END 2021-02-15 13:55 | disposition home or self-care (01) ==
PROVIDERS: Emergency Provider Emergency Medicine; PCP Internal Medicine
DX: M54.50 Low back pain, unspecified (principal); G89.29 Other chronic pain; R50.9 Fever, unspecified; M54.2 Cervicalgia; Z20.822 Contact with and (suspected) exposure to COVID-19; I27.20 Pulmonary hypertension, unspecified; J44.9 Chronic obstructive pulmonary disease, unspecified; K21.9 Gastro-esophageal reflux disease without esophagitis; G47.33 Obstructive sleep apnea (adult) (pediatric); F32.A Depression, unspecified; F41.9 Anxiety disorder, unspecified; F17.210 Nicotine dependence, cigarettes, uncomplicated; Z98.890 Other specified postprocedural states
CPT/HCPCS: 71045; 72158; 80048; 81001; 85025; 87040; 87426; 96372; 96374; 96375; 96376; 99285; A9575; J7030; A4216; J2405

== ENCOUNTER 2021-02-20 06:50 | Day surgery (SDC) | payer MEDICARE, MEDICAID, SELFPAY ==
[2021-02-20] VITALS (10 sets, daily range): BP systolic 97–141; BP diastolic 56–92; PULSE 61–73; RESP 14–18; TEMP 36.2–37.1; O2SAT 92–96; BMI 53.0
[2021-02-20] MEDS: Lactated Ringers 1,000 ML 100 ML IV ×2 (07:27→11:43)
--- NOTE | 2021-02-20 08:32 | HP.PCM_ITS ---
HPI - General HPI Narrative RAKESH HEARN, is a 45 F who presents for evaluation of a left renal pelvic mass, injection of Botox 100 units for her overactive bladder and a mid urethral sling insertion for stress incontinence. Informed consent was obtained. [facility] Medical History (Updated 02/20/21 @ 08:[address] Luisa Mendez MD) Abdominal wall abscess Anxiety Anxiety and depression Arthritis Asthma Bladder disease Cancer of left kidney Chronic back pain Chronic cough Chronic neck and back pain COPD (chronic obstructive pulmonary disease) Depression Diarrhea Diarrhea Fatigue Fatty stools Gastric reflux GERD (gastroesophageal reflux disease) H/O emotional problems History of echocardiogram History of edema History of hiatal hernia History of mononucleosis History of renal disease History of stress test History of ulceration Incontinence Intertriginous dermatitis associated with moisture Intestinal ulcer Left ankle pain Limb weakness Loose, teeth Lung disease Mild chronic gastritis MARGARITA (obstructive sleep apnea) Overactive bladder Pulmonary hypertension Shortness of breath Shoulder pain Smoker SOB (shortness of breath) Stress incontinence Venous insufficiency of both lower extremities Wears glasses Home Medications albuterol sulfate 90 mcg/actuation breath activated powder inhaler 2 inh INHALATION Q4H PRN 01/27/20 [History Last Taken 03/23/20] pantoprazole 40 mg tablet,delayed release 40 mg PO BID tab 01/27/20 [History Last Taken 02/20/21] Handicap Placard #1 ea 11/28/20 [Rx Last Taken Unknown] ibuprofen 400 mg PO Q6H PRN 02/20/21 [History Last Taken Unknown] Allergy/AdvReac Type Severity Reaction Status Date / Time cefaclor [From Ceclor] Allergy Hives Verified 02/16/21 14:15 erythromycin base Allergy Upset Verified 02/16/21 14:15 [Erythromycin Base] Stomach moxifloxacin HCl Allergy Hives Verified 02/16/21 14:15 [From Avelox] Penicillins Allergy Upset Verified 02/16/21 14:15 Stomach sulfamethoxazole Allergy Unknown Verified 02/16/21 14:15 [From Bactrim] trimethoprim [From Bactrim] Allergy Unknown Verified 02/16/21 14:15 Family History Mother CVA (cerebral vascular accident) Thyroid disorder Ulcer Arthritis Father Diabetes Heart disease Myocardial infarction Arthritis Hypertension High cholesterol Skin cancer Son , age 17 Asthma Large B-cell lymphoma Other Anxiety Melanoma Respiratory disease Surgical History History of ankle surgery History of esophagogastroduodenoscopy (EGD) (~01/20/20) History of lymph node biopsy History of partial hysterectomy History of sinus surgery History of tonsillectomy Hx of cholecystectomy Hx of cystoscopy Hx of hysterectomy Hx of nasal septoplasty Hx of prior ablation treatment Hx of tonsillectomy Social History household members: children Smoking Status: Current every day smoker tobacco type: cigarettes Tobacco: How many years used: 25 alcohol intake: never substance use type: does not use what type of physical activity do you participate in: none do you feel safe at home: Yes ROS Constitutional Constitutional: Denies anorexia, change in weight, chills, fever(s), frequent falls or headache(s) Eyes Eyes: Denies change in vision ENT HEENT: Denies change in voice, dysphagia, headache(s), loss taste/smell, nasal congestion or sore throat Cardiovascular Cardiovascular: Denies abdominal pain, cold extremities, cyanosis, diaphoresis, dyspnea, edema or vomiting Respiratory/Chest Respiratory/Chest: Denies change in mental status, dry cough or dyspnea Gastrointestinal Gastrointestinal: Denies abdominal pain, change in stool character, dysphagia, nausea or vomiting Genitourinary Genitourinary: Reports low back pain, urinary frequency, urinary incontinence and urinary urgency; Denies burning urination Musculoskeletal Musculoskeletal: Denies abnormal gait, difficulty walking or extremity pain Integumentary Integumentary: Denies rash or wounds Neurologic Neurologic: Denies abnormal gait, abnormal hearing, abnormal movements or abnormal speech Psychiatric Psychiatric: Reports systems reviewed and no addt'l complaints, except as documented Endocrine Endocrinology: Reports systems reviewed and no addt'l complaints, except as documented Hematologic/Lymphatic Hematologic/Lymphatic: Reports systems reviewed and no addt'l complaints, except as documented Allergic/Immunologic Allergic/Immunologic: Reports systems reviewed and no addt'l complaints, except as documented Vital Signs Vital Signs Vital Signs: 02/20/21 07:16 Temperature 98.0 F Temperature Source Temporal Pulse Rate 72 Respiratory Rate 18 Respiratory Pattern Normal Blood Pressure 139/92 H Blood Pressure Mean 107 Blood Pressure Source Monitor Blood Pressure Position Semi-Fowlers Blood Pressure Location Left Forearm Pulse Ox 96 Oxygen Delivery Method Room Air Weight Weight: 144.5 kg Body Mass Index (BMI) 53.0 Physical Exam Const alert, oriented x3 and no apparent distress General Appearance: cooperative and comfortable HEENT normocephalic, head/scalp atraumatic and external ears normal Face and Sinus: face symmetric Nose: external nose normal External Ear: external ears normal Mouth: lips normal Eyes General Eye: normal appearance of both eyes Neck General: normal visual inspection and trachea midline Lymph Lymphatic: no lymphedema noted Chest inspection of chest normal Chest: symmetrical chest wall rise Resp normal respiratory effort, normal air movement, no retractions and no use of accessory muscles Effort and Inspection: able to speak in complete sentences and symmetric chest movement Cardio regular rate and regular rhythm GI soft to palpation, non-tender and non-distended no CVA tenderness and external exam normal Back/Spine no CVA tenderness Extremity normal to inspection Skin no rashes or lesions noted, no wounds, skin turgor normal, no jaundice, no petechiae and no mottling Neuro oriented x3, CN's II-XII intact bilaterally and moves all extremities Psych mental status grossly normal, thought process normal, cooperative and affect normal Assessment & Plan Assessment/Plan (1) Overactive bladder: (2) Neoplasm of renal pelvis: (3) Stress incontinence: PLAN: Proceed with the cystoscopy, left ureteroscopy, Botox 100 unit injection, mid urethral sling insertion. Informed consent was obtained.
[2021-02-20] MEDS: 0.9% Normal Saline (Pres. free 10 ML Vial ×2 (09:28→09:35)
[2021-02-20] MEDS: Lidocaine 1% /Epi 1:100 (20ml) 20 ML Vial (09:45)
--- NOTE | 2021-02-20 10:33 | PCM.DC ---
Discharge Instructions Diet Discharge Diet: No restrictions Activity Discharge Activity: May Shower May resume sexual activity in: 4-6 weeks Lifting Restrictions: 5 pounds Additional Activity Instructions:: no exercise, strenuous activity, or sexual activity. ok to shower, no tub bathing, swimming or hot tubs Dressing / Incision Call your doctor if your incision/area has: Continuous Slow Oozing, Sudden Increased Bleeding, Increased Pain/ Swelling, Increased Redness, Foul Smelling Discharge and Swelling at the incision site Call your doctor if you observe: Fever of 101 or Higher, Inability to urinate, Inability to have a bowel movement and Uncontrolled pain Follow Up Care Please Follow Up With: Luisa Mendez MD When: call office for appt. Test Results: Test results from this visit will be discussed in further detail at your follow-up appointment, if applicable. Discharge Plan Admission Attending Provider: Luisa Mendez Primary Care Provider: Ezequiel Lepe Discharge Orders/Prescriptions Prescriptions: New ciprofloxacin HCl [ciprofloxacin HCl] 500 MG tablet 500 mg PO BID Qty: 6 RF: 0 oxycodone-acetaminophen [oxycodone-acetaminophen] 1 TABLET tablet 2 tab PO Q8H PRN PRN (Reason: Pain) 7 Days Qty: 20 RF: 0 Continued pantoprazole 40 mg tablet,delayed release (DR/EC) 40 mg PO BID RF: 0 albuterol sulfate 90 mcg/actuation aerosol powdr breath activated 2 inh INHALATION Q4H PRN (Reason: Sob &/Or Wheezing) RF: 0 (DME) Handicap Placard See Rx Instructions .ROUTE .MEDSUPPLY Qty: 1 RF: 0 ibuprofen 200 mg Tablet 400 mg PO Q6H PRN (Reason: Pain) RF: 0 Referrals / Follow Up: Ezequiel Lepe MD [Primary Care Provider] - Disposition Disposition (needs filled in before D/C Order can be placed): Home, Self Care
--- NOTE | 2021-02-20 11:29 | OP.PCM_ITS ---
Problems Associated Problem List Diagnoses (1) Stress incontinence: (2) Overactive bladder: (3) Neoplasm of renal pelvis: Report of Operation Date of Procedure: 02/20/21 Pre-Operative Diagnosis: History of left renal pelvic mass, overactive bladder, stress incontinence Post-Operative Diagnosis: Same Surgery/Procedure Performed:: Cystoscopy, left ureteroscopy, Botox 100 unit injection, mid urethral sling insertion Type of Anesthesia: General Description of Procedure: The patient is a 45-year-old female who presents for routine surveillance ureteroscopy of her left renal pelvis, repeat cystoscopy with 100 units of Botox injection for her overactive bladder and mid urethral sling insertion for her stress incontinence. Informed consent was obtained. Th e patient was taken to the operating room and placed on the operating room table. Anesthesia monitored the head, neck, airway, IV access and vital signs throughout the case. Once anesthesia was appropriate ministered the patient was placed into dorsal lithotomy position was prepped and draped in usual sterile fashion. The cystoscope was inserted through the urethra under direct visualization revealing no bladder mucosal abnormalities. The left ureteral orifice was identified and intubated using a 0.035 Glidewire. The flexible ureteroscope was inserted over the Glidewire and easily achieved access to the left renal pelvis. Each calyx was directly visualized and there were no abnormalities identified. The ureter was visualized in its entirety on the way out of the left kidney and there were no abnormalities identified. At this time the cystoscope was used to inject a total of 20 injections each with 1/2 cc, and 5 units of Botox. The injections were dispersed across the bladder floor, posterior and lateral blake of the bladder. At this time a Cortes catheter was inserted to straight drain and the bladder was emptied. The mid urethra was isolated and injected submucosally with lidocaine with epinephrine. A midline vertical incision was made over the mid urethra. Sharp and blunt dissection was performed on either side of the urethra with care being taken to avoid entrance into the urinary bladder or the urethra. The trochars were then used to place the mid urethral sling into the transobturator complexes bilaterally. The sling was positioned against the urethra and lay flat against the tissue. It was positioned using the tensioning suture. The suture was then cut and the incision was closed using running interlocking 2-0 Vicryl. A cystourethroscopy was then performed through the urethra under direct visualization revealing no evidence of foreign body or injury to the urinary bladder or urethra. The patient was then awakened and taken to the recovery room in good condition. There were no complications during this procedure. Grafts/Implants Used: Altis mid urethral sling Complications None Admit VTE Documentation VTE Present on Admission: Yes VTE Mechan Device Prophylaxis: SCD's VTE Pharm Prophylaxis ordered?: No Reason prophylaxis not ordered:: Treatment Not Indicated
[2021-02-20] MEDS: oxyCODONE 5 MG Tablet PO (12:11)
[2021-02-20] MEDS: Acetaminophen 325 MG Tablet PO (12:11)
== END 2021-02-20 12:55 | disposition home or self-care (01) ==
LOC: SDC 06:51 → AC 06:52
PROVIDERS: PCP Internal Medicine; Referring Provider Urology; Visit Provider Urology
PROC: (CPT 52353; principal; 2021-02-20 08:25)
DX: N39.3 Stress incontinence (female) (male) (principal); N32.81 Overactive bladder; D49.519 Neoplasm of unspecified behavior of unspecified kidney; J44.9 Chronic obstructive pulmonary disease, unspecified; I27.20 Pulmonary hypertension, unspecified; J45.909 Unspecified asthma, uncomplicated; M54.2 Cervicalgia; M54.9 Dorsalgia, unspecified; G89.29 Other chronic pain; G47.33 Obstructive sleep apnea (adult) (pediatric); K21.9 Gastro-esophageal reflux disease without esophagitis; F32.A Depression, unspecified; F41.9 Anxiety disorder, unspecified; F17.210 Nicotine dependence, cigarettes, uncomplicated; Z79.899 Other long term (current) drug therapy
CPT/HCPCS: 00860; 52287; 57288; 76000; J7120; J0585; J2405; J3490

== ENCOUNTER → 2021-02-22 12:48 | Outpatient (CLI) | payer MEDICARE, MEDICAID, SELFPAY ==
[2021-02-22 15:03] LABS: Hematocrit 42.3 % (37-47); Hemoglobin 13.8 g/dL (12.0-15.0); Mean Corp Hgb Conc 32.6 g/dL (32-36); Mean Corpuscular Hgb 29.6 pg (27.0-32.0); Mean Corpuscular Volume 90.6 fL (81-99); Mean Platelet Vol. 10.7 fl (6.2-12.0); Platelet Count 330 K/mm3 (150-450); RBC Distribution Width SD 42.5 fl (35.1-43.9); Red Blood Count 4.67 M/mm3 (4.2-5.4); White Blood Count 15.3 K/mm3 (4.4-11.0)
[2021-02-22 15:40] LABS: Anion Gap 9 (5-15); BUN 13 mg/dL (7-18); BUN/Creat Ratio 16.9 RATIO (10-20); Calcium,Total 9.1 mg/dL (8.5-10.1); Chloride 102 mmol/L (98-107); Creatinine, Serum 0.77 mg/dL (0.55-1.02); EST Glomerular Filtration Rate 85 mL/min (>60); Est Glom Filt Rate - Afr Amer 103 mL/min (>60); Glucose 158 mg/dL (74-106); Potassium 4.2 mmol/L (3.5-5.1); Sodium Level 138 mmol/L (136-145)
== END ==
PROVIDERS: PCP Internal Medicine; Referring Provider Urology; Visit Provider Urology
DX: N39.0 Urinary tract infection, site not specified (principal)
CPT/HCPCS: 36415; 80048; 85027

== ENCOUNTER 2021-03-04 10:58 | Emergency (ER) | payer MEDICARE, MEDICAID, SELFPAY ==
[2021-03-04 10:59] VITALS: BP 139/86; PULSE 95; RESP 24; TEMP 36.2; O2SAT 98; BMI 52.2
--- NOTE | 2021-03-04 11:17 | CT_ITS ---
STUDY: CT ABDOMEN AND PELVIS WITHOUT CONTRAST REASON FOR EXAM: Female, 45 years old. Right flank pain. RADIATION DOSAGE (If Supplied By Facility): CTDIvol = ( 24.18 ) mGy, DLP = ( 1268.52 ) mGycm TECHNIQUE: Transaxial images were obtained from the dome of the diaphragm to the symphysis pubis without oral contrast, and without intravenous contrast. Sagittal and coronal images were reconstructed. Individualized dose optimization techniques were used for this CT. COMPARISON: CT abdomen of 04/10/2020 and CTA of the chest of 06/05/2020 FINDINGS: Essentially stable partially visualized right lower lobe nodule measuring about 6 16 mm. Further follow-up exam in 6 months is recommended. The lungs are otherwise clear. The visualized portions of the heart are within normal limits. Hepatomegaly. Fatty infiltration of the liver. No focal lesion is definitely identified. There is non-visualization of the gallbladder, which may be secondary to either contraction or a prior cholecystectomy. Normal spleen. Normal pancreas. Normal bilateral adrenal glands. Normal right kidney. Normal left kidney. Normal visualized stomach. Normal small intestine. The descending colon is not well-distended. The appendix is visualized and appears normal. There is mild atherosclerotic calcification of the abdominal aorta, without a demonstrated aneurysm. Normal inferior vena cava. Normal retroperitoneum. The bladder is not well-distended. Calcifications in the anterior aspect of the bladder are again seen. There is absence of the uterus consistent with a prior hysterectomy. There is a small umbilical hernia containing fat. No demonstrated acute osseous changes. CT/Abdomen/Pelvis without Cont IMPRESSION: 1. Hepatomegaly. 2. Fatty infiltration of the liver. 3. No evidence of urinary tract stones or hydronephrosis. 4. No focal acute inflammatory process. 5. Stable right lower lobe nodule for which further follow-up exam in 6 months is recommended. Electronically Signed: Valente Fajardo MD at 12:48 EDT Tel , Service support ,
--- NOTE | 2021-03-04 11:18 | ED.VIS.GI ---
HPI HPI - GI History of Present Illness Chief Complaint: Flank Pain Informant: patient Abdominal Pain/Flank Pain Onset: Yesterday Context: Sudden Onset Timing: Continuous and Waxes and wanes Quality: Aching Location: Right Flank Current Severity: Severe Maximum Severity: Severe Worsened by: Nothing Relieved by: Nothing Nausea/Vomiting/Emesis GI Symptom: Positive for Nausea; Negative for Vomiting Diarrhea/Melena/Hematochezia GI Symptom: Negative for Diarrhea, Melena and Hematochezia Associated Symptoms Associated Symptoms: Positive for Urgency; Negative for Dysuria, Frequency and Hematuria Narrative Narrative: 45-year-old female with a history of kidney stones started having sudden onset colicky right flank pain yesterday feels like prior stones but she was concerned because she had a bladder sling done 2 weeks ago. Since onset of symptoms yesterday, she states it feels like she needs to go but she is urinating less than she would expect but otherwise it is not uncomfortable or bloody. She states she has never needed surgery to get a stone removed in the past and has passed them all before. But it has been a while since she had one. [facility] Medical History Abdominal wall abscess Anxiety Anxiety and depression Arthritis Asthma Bladder disease Cancer of left kidney Chronic back pain Chronic cough Chronic neck and back pain COPD (chronic obstructive pulmonary disease) Depression Diarrhea Diarrhea Fatigue Fatty stools Gastric reflux GERD (gastroesophageal reflux disease) H/O emotional problems History of echocardiogram History of edema History of hiatal hernia History of mononucleosis History of renal disease History of stress test History of ulceration Incontinence Intertriginous dermatitis associated with moisture Intestinal ulcer Left ankle pain Limb weakness Loose, teeth Lung disease Mild chronic gastritis MARGARITA (obstructive sleep apnea) Overactive bladder Pulmonary hypertension Shortness of breath Shoulder pain Smoker SOB (shortness of breath) Stress incontinence Venous insufficiency of both lower extremities Wears glasses Home Medications pantoprazole 40 mg tablet,delayed release 40 mg PO BID tab 01/27/20 [History Last Taken 02/20/21] Handicap Placard #1 ea 11/28/20 [Rx Last Taken Unknown] ibuprofen 400 mg PO Q6H PRN 02/20/21 [History Last Taken Unknown] albuterol sulfate 90 mcg/actuation breath activated powder inhaler 2 inh INHALATION Q4H PRN #1 ea 02/23/21 [Rx Last Taken Unknown] ciprofloxacin HCl 500 mg PO BID #14 tablet 03/04/21 [Rx Last Taken Unknown] promethazine 25 mg PO Q6H PRN PRN #10 tablet 03/04/21 [Rx Last Taken Unknown] tramadol 50 mg PO Q4H PRN PRN 2 Days #12 tab 03/04/21 [Rx Last Taken Unknown] Allergy/AdvReac Type Severity Reaction Status Date / Time cefaclor [From Ceclor] Allergy Hives Verified 03/04/21 13:21 erythromycin base Allergy Upset Verified 03/04/21 13:21 [Erythromycin Base] Stomach moxifloxacin HCl Allergy Hives Verified 03/04/21 13:21 [From Avelox] Penicillins Allergy Upset Verified 03/04/21 13:21 Stomach sulfamethoxazole Allergy Unknown Verified 03/04/21 13:21 [From Bactrim] trimethoprim [From Bactrim] Allergy Unknown Verified 03/04/21 13:21 Family History Mother CVA (cerebral vascular accident) Thyroid disorder Ulcer Arthritis Father Diabetes Heart disease Myocardial infarction Arthritis Hypertension High cholesterol Skin cancer Son , age 17 Asthma Large B-cell lymphoma Other Anxiety Melanoma Respiratory disease Surgical History History of ankle surgery History of esophagogastroduodenoscopy (EGD) (~01/20/20) History of lymph node biopsy History of partial hysterectomy History of sinus surgery History of tonsillectomy Hx of cholecystectomy Hx of cystoscopy Hx of hysterectomy Hx of nasal septoplasty Hx of prior ablation treatment Hx of tonsillectomy Social History household members: children Smoking Status: Current every day smoker tobacco type: cigarettes Tobacco: How many years used: 25 alcohol intake: never substance use type: does not use what type of physical activity do you participate in: none do you feel safe at home: Yes ROS ROS ED Constitutional Constitutional ED: Denies chills or fever(s) Eyes Eyes: Denies change in vision or diplopia ENT ENT ED: Denies rhinorrhea or sore throat Cardiovascular Cardiovascular: Denies chest pain or palpitations Respiratory/Chest Respiratory/Chest: Denies cough or dyspnea Gastrointestinal Gastrointestinal: Reports abdominal pain and nausea; Denies diarrhea or vomiting Genitourinary Genitourinary ED: Reports as per HPI and flank pain; Denies dysuria or hematuria Musculoskeletal Musculoskeletal: Denies back pain or neck pain Integumentary Denies abscess or rash Neurologic Neurologic: Denies headache(s), paresthesias or weakness Psychiatric Psychiatric: Denies anxiety or suicidal thoughts EXAM Physical Exam Const Vital Signs: 03/04/21 10:59 03/04/21 12:01 Temperature 97.1 F L 97.1 F L Temperature Source Temporal Oral Pulse Rate 95 95 Respiratory Rate 24 H 19 H Blood Pressure 139/86 H 147/90 H Blood Pressure Mean 103 109 Pulse Ox 98 98 Oxygen Delivery Method Room Air Room Air Positive well nourished, well developed and obese Constitutional Narrative: Mild painful distress General Appearance ED: well developed Nutritional Appearance: obese HEENT Reports moist mucous membranes normocephalic and atraumatic Eyes PERRL and EOMs intact bilaterally Neck full ROM and supple Resp normal respiratory effort and clear to auscultation bilaterally Cardio regular rate, regular rhythm and no murmurs GI non-tender and non-distended Auscultation: normoactive bowel sounds Palpation: soft Back/Spine General Back: CVA tenderness right and other FROM Extremity normal to inspection General Extremety ED: Negative for edema, pulses abnormal or tenderness General Extremity: Negative for edema or pulses abnormal Neuro oriented x3, CN's II-XII intact bilaterally and no sensory deficits noted Sensorium / Orientation: awake and alert Motor Exam: strength 5/5 throughout Skin no rashes or lesions noted and no wounds MDM MDM MDM Narrative Medical decision making narrative: Work-up is negative for stone or obstructive uropathy, with imaging unremarkable. Urinalysis shows signs of blood but also infection and pyuria. This was sent for culture. She is a leukocytosis of 13.9 which is relatively mild. She is not septic and doing very well after analgesics, fluids, Zofran and Reglan. She looks well. Stable for discharge home after IV antibiotics, and will place her on Cipro. She has a lot of allergies. She has an unknown allergy to penicillins, she gets hives to Ceclor, hives to Avelox, and she cannot take sulfa medications. She can take Cipro okay as well as cephalexin. Therefore I think Cipro would be the best treatment, for pyelonephritis but she needs an IV antibiotic, so we will give her ertapenem given her allergy list. Lab Data Attestation: I reviewed the patient's lab results. Labs: Laboratory Results - last 24 hr 03/04/21 03/04/21 03/04/21 11:30 11:30 12:48 WBC 13.9 H RBC 5.03 Hgb 15.1 H Hct 44.7 MCV 88.9 MCH 30.0 MCHC 33.8 RDW Std Deviation 42.5 RDW Coeff of Saeid 13.1 Plt Count 338 MPV 10.1 Immature Gran % (Auto) 0.300 Neut % (Auto) 67.7 Lymph % (Auto) 24.7 Brown % (Auto) 6.0 Eos % (Auto) 1.1 Baso % (Auto) 0.2 Absolute Neuts (auto) 9.4 H Absolute Lymphs (auto) 3.44 Nucleated RBC % 0 Sodium 136 Potassium 4.5 Chloride 104 Carbon Dioxide 25.0 Anion Gap 7 BUN 16 Creatinine 0.71 Estim Creat Clear Calc 88.14 Est GFR (MDRD) Af Amer 114 Est GFR (MDRD) Non-Af 94 BUN/Creatinine Ratio 22.7 H Glucose 92 Calcium 9.4 Urine Color Yellow Urine Clarity Clear Urine pH 5.0 Ur Specific [place] 1.020 Urine Protein 30 H Urine Glucose (UA) Normal Urine Ketones 5 H Urine Occult Blood 150 H Urine Nitrite Positive H Urine Bilirubin Negative Urine Urobilinogen Normal Ur Leukocyte Esterase 500 H Urine RBC 0 SEEN Urine WBC 10-25 SEEN Ur Squamous Epith Cells 0-5 SEEN Urine Bacteria 3+ Urine Mucus 0 SEEN Radiography Diagnostic Testing: Clinical Impression(s) from Imaging Studies Abdomen/Pelvis CT 03/04/21 11:17 IMPRESSION: 1. Hepatomegaly. 2. Fatty infiltration of the liver. 3. No evidence of urinary tract stones or hydronephrosis. 4. No focal acute inflammatory process. 5. Stable right lower lobe nodule for which further follow-up exam in 6 months is recommended. Electronically Signed: Valente Fajardo MD at 12:48 EDT Tel , Service support , Discharge Plan Triage Chief Complaint: Flank Pain ED Provider: Damian Rodrigues Dx/Rx/DC Orders Clinical Impression: Pyelonephritis Instructions: ED Pyelonephritis, Female (Adult) Prescriptions: New ciprofloxacin HCl [ciprofloxacin HCl] 500 MG tablet 500 mg PO BID Qty: 14 RF: 0 tramadol 50 MG tablet 50 mg PO Q4H PRN PRN (Reason: Pain) 2 Days Qty: 12 RF: 0 promethazine [promethazine] 25 MG tablet 25 mg PO Q6H PRN PRN (Reason: Nausea) Qty: 10 RF: 0 No Action pantoprazole 40 mg tablet,delayed release (DR/EC) 40 mg PO BID RF: 0 (DME) Handicap Placard See Rx Instructions .ROUTE .MEDSUPPLY Qty: 1 RF: 0 albuterol sulfate 90 mcg/actuation aerosol powdr breath activated 2 inh INHALATION Q4H PRN (Reason: Sob &/Or Wheezing) Qty: 1 RF: 0 ibuprofen 200 mg Tablet 400 mg PO Q6H PRN (Reason: Pain) RF: 0 Primary Care Provider: Ezequiel Lepe Referrals: Ezequiel Lepe MD [Primary Care Provider] - 3-5 Days if not improving Disposition Disposition: Home, Self Care
[2021-03-04 11:41] LABS: Absolute Lymphocyte Count 3.44 X10^3/uL (0.83-4.51); Absolute Neutrophil Count 9.4 X10^3/uL (2.0-7.7); Basophil# 0.03 X10^3/uL; Basophil% 0.2 % (0-1); Eosinophil# 0.15 X10^3/uL; Eosinophils% 1.1 % (0-5); Hematocrit 44.7 % (37-47); Hemoglobin 15.1 g/dL (12.0-15.0); Lymphocyte # 3.44 X10^3/ul (0.83-4.51); Lymphocyte % 24.7 % (19-41); Mean Corp Hgb Conc 33.8 g/dL (32-36); Mean Corpuscular Volume 88.9 fL (81-99); Mean Platelet Vol. 10.1 fl (6.2-12.0); Monocyte# 0.84 X10^3/uL; NRBC Flagged by Analyzer 0 % (0-5); Neutrophil # 9.42 X10^3/uL (2.7-7.7); Neutrophil % 67.7 % (47-70); Platelet Count 338 K/mm3 (150-450); RBC Distribution Width CV 13.1 % (11.6-14.6); RBC Distribution Width SD 42.5 fl (35.1-43.9); Red Blood Count 5.03 M/mm3 (4.2-5.4); White Blood Count 13.9 K/mm3 (4.4-11.0)
[2021-03-04 11:49] LABS: Anion Gap 7 (5-15); BUN 16 mg/dL (7-18); BUN/Creat Ratio 22.7 RATIO (10-20); Calcium,Total 9.4 mg/dL (8.5-10.1); Chloride 104 mmol/L (98-107); Creatinine, Serum 0.71 mg/dL (0.55-1.02); EST Glomerular Filtration Rate 94 mL/min (>60); Est Glom Filt Rate - Afr Amer 114 mL/min (>60); Estimated Creatinine Clearance 88.14 ml/min; Glucose 92 mg/dL (74-106); Potassium 4.5 mmol/L (3.5-5.1); Sodium Level 136 mmol/L (136-145)
[2021-03-04] MEDS: Ketorolac 30 MG/ML Syringe IV (11:51)
[2021-03-04] MEDS: Ondansetron 4 MG/2 ML Vial IV (11:51)
[2021-03-04] MEDS: Morphine 4 MG/ML Syringe IV (11:52)
[2021-03-04 12:01] VITALS: BP 147/90; PULSE 95; RESP 19; TEMP 36.2; O2SAT 98
[2021-03-04 12:56] LABS: Mucous, Urine 0 SEEN /hpf (<or=2+); Red Blood Cells-Urine 0 SEEN /hpf (0-5)
[2021-03-04 13:01] LABS: Color, Urine Yellow (Yellow); Glucose, Dipstick Normal (Normal); Ketone-Dipstick 5 mg/dl (Negative); Leukocyte Esterase-Dipstick 500 /ul (Negative); Nitrite-Dipstick Positive (Negative); Occult Blood-Urine 150 /ul (Negative); Protein-Dipstick 30 mg/dl (Negative); Urine Bilirubin Dipstick Negative (Negative); Urine Clarity Clear (Clear); Urine Urobilinogen Normal (Normal)
[2021-03-04] MEDS: Metoclopramide 10 MG/2 ML Vial 5 MG IV (13:17)
[2021-03-04 13:18] LABS: Bacteria 3+ /hpf (None Seen); Squamous Epithelial Cells - UA 0-5 SEEN /hpf (5-10); White Blood Cells 10-25 SEEN /hpf (0-5)
[2021-03-04 15:04] VITALS: BP 132/94; PULSE 76; RESP 15
--- NOTE | 2021-03-07 09:03 | ED.RN ---
PER DR BENAVIDES, PT CONTACT ABOUT URINE CULTURE RESULTS. PT C/O FEELING ABOUT THE SAME. WANTS PRESCRIPTION CALLED IN. INFORMED THAT IF SHE CANNOT KEEP MEDICATIONS DOWN TO RETURN TO THE ER. REQUESTED PRESCRIPTION CALLED IN TO [facility]
== END 2021-03-04 15:05 | disposition home or self-care (01) ==
PROVIDERS: Emergency Provider Emergency Medicine; PCP Internal Medicine
DX: N12 Tubulo-interstitial nephritis, not specified as acute or chronic (principal); I27.20 Pulmonary hypertension, unspecified; J44.9 Chronic obstructive pulmonary disease, unspecified; M19.90 Unspecified osteoarthritis, unspecified site; G89.29 Other chronic pain; K21.9 Gastro-esophageal reflux disease without esophagitis; G47.33 Obstructive sleep apnea (adult) (pediatric); N32.81 Overactive bladder; F32.A Depression, unspecified; F41.9 Anxiety disorder, unspecified; E66.9 Obesity, unspecified; F17.210 Nicotine dependence, cigarettes, uncomplicated; Z79.899 Other long term (current) drug therapy; Z87.442 Personal history of urinary calculi
CPT/HCPCS: 74176; 80048; 81001; 85025; 87077; 87086; 87088; 87186; 96365; 96375; 99283; J7050; A4216; J2405

== ENCOUNTER → 2021-03-09 11:25 | Outpatient (CLI) | payer MEDICARE, MEDICAID, SELFPAY | PROVIDERS: PCP Internal Medicine; Referring Provider Internal Medicine; Visit Provider Internal Medicine | DX: Z46.89 Encounter for fitting and adjustment of other specified devices (principal) ==

== ENCOUNTER → 2021-04-04 09:02 | Outpatient (CLI) | payer MEDICARE, MEDICAID, SELFPAY ==
--- NOTE | 2021-04-04 09:05 | BI_ITS ---
MAMMOGRAPHY - BILATERAL DIAGNOSTIC REASON FOR EXAM: Female, 45 years old. Left breast lump in retroareolar region for 2 months. Drain to black nipple discharge. Superficial redness near nipple. Worked up in May 2020 also. PERTINENT HISTORY: Non-contributory. TECHNIQUE: Digital examination. Mediolateral oblique (MLO) and craniocaudad (CC) views of both breasts were obtained. CAD: CAD was performed on this study. COMPARISON: 05/31/2020. FINDINGS: Breast Composition: There are scattered areas of fibroglandular density. There are no dominant masses or suspicious calcifications. Ultrasound of the retroareolar region of the left breast showed a superficial epidermal ovoid hypoechoic lesion compatible with a sebaceous cyst or small superficial abscess measuring 5.5 mm in diameter. No aggressive features are associated with this lesion. BI/DIAG MAMM W/CAD, BILAT IMPRESSION: Stable mammogram. Small superficial epidermal lesion in the retroareolar region at the 11 o''clock position (see detailed ultrasound report). Yearly follow-up mammogram recommended. ASSESSMENT CATEGORY: BIRADS Category 2: Benign. A letter regarding these results will be sent to the patient by the facility within 30 days. FOLLOW UP RECOMMENDATION: Yearly follow up mammogram recommended. (A) Approximately 10% of breast cancers are not detected by mammography. A normal mammogram should not delay biopsy of a clinically suspicious abnormality. Electronically Signed: Fred Arteaga MD at 10:26 EST , Service support ,
--- NOTE | 2021-04-04 09:05 | US_ITS ---
STUDY: ULTRASOUND BREAST - LEFT REASON FOR EXAM: Female, 45 years old. Left subareolar mass. TECHNIQUE: Axial and longitudinal images of the LEFT breast were performed with a high resolution ultrasound transducer. # OF IMAGES: 19 COMPARISON: Bilateral diagnostic mammogram performed today. FINDINGS: LEFT Breast: 5 mm x 5 mm x 3 mm ovoid hypoechoic superficial epidermoid mass at the 11 o''clock position of the retroareolar region of the left breast. Lesion is compatible with epidermoid cyst or small superficial abscess. No aggressive features are present. US/Breast Limited Unilateral IMPRESSION: Superficial epidermal lesion most compatible with epidermoid cyst or, less likely, superficial abscess. No aggressive features. Yearly mammogram recommended. ASSESSMENT CATEGORY: BIRADS Category 2: Benign. A letter regarding these results will be sent to the patient by the facility within 30 days. Electronically Signed: Fred Arteaga MD at 10:28 EST , Service support ,
== END ==
PROVIDERS: PCP Internal Medicine; Referring Provider Nurse Practitioner Family; Visit Provider Nurse Practitioner Family
DX: R92.8 Other abnormal and inconclusive findings on diagnostic imaging of breast (principal); N63.42 Unspecified lump in left breast, subareolar; N64.52 Nipple discharge
CPT/HCPCS: 76642; 77062; 77066; G0279

== ENCOUNTER → 2021-04-04 10:45 | Outpatient (CLI) | payer MEDICARE, MEDICAID, SELFPAY | PROVIDERS: PCP Internal Medicine; Referring Provider Internal Medicine; Visit Provider Internal Medicine | DX: Z00.00 Encounter for general adult medical examination without abnormal findings (principal) ==

== ENCOUNTER 2021-05-16 13:23 | Outpatient (CLI) | payer MEDICARE, MEDICAID, SELFPAY | END 2021-05-16 23:59 | disposition short-term general hospital (02) | LOC: LABSPEC 13:25 | PROVIDERS: PCP Internal Medicine; Referring Provider Physician Assistant; Visit Provider Physician Assistant | DX: Z11.52 Encounter for screening for COVID-19 (principal) | CPT/HCPCS: 87635; U0003; U0005 ==

== ENCOUNTER 2021-05-30 05:40 | Day surgery (SDC) | payer MEDICARE, MEDICAID, SELFPAY ==
[2021-05-30 06:14] VITALS: BP 122/68; PULSE 78; RESP 18; TEMP 36.5; O2SAT 97; BMI 54.6
[2021-05-30] MEDS: Ciprofloxacin 400 MG/200 ML BAG 200 MG IV (06:48)
[2021-05-30] MEDS: Lactated Ringers 1,000 ML 15 ML IV (06:50)
--- NOTE | 2021-05-30 07:30 | BLA_PTH ---
PATIENT: RAKESH HEARN LOC: [facility] U#:[id number] AGE/SX: 46/F ROOM: RE05/30/[address]: Dr. Luisa Mendez MD : 1975 BED: DIS: 05/30/2021 SPEC #: [id number] RECD: 05/30/21 09:12 STATUS: ARIADNA CHAVEZ #: [id number] MITCHELL: 05/30/21 07:[address]: Luisa Mendez DEPT: SURGICAL PATHOLOGY RECD BY: Syeda Rehman ENTERED: 05/30/21 10:13 SP TYPE: BLADDER BX OTHR DR: Dr. Ezequiel Lepe MD Tissues: Urinary bladder, NOS Procedures: Surgery Specimen Level IV HEADER OPERATION: Cystoscopy, pelvic exam under anesthesia, bladder biopsy PRE-OP DIAGNOSIS: Overactive bladder, stress incontinence, urge incontinence, nocturia TISSUE SUBMITTED: Bladder biopsy MICROSCOPIC DIAGNOSIS Urinary bladder, biopsy: Focal urothelial hyperplasia and chronic cystitis. AM:roxanne 05/31/2021 COMMENT The mucosa consists almost entirely of squamous epithelium. Clinical correlation is suggested. Case has been reviewed in consultation with Dr. Pineda who concurs with the above diagnosis. IDC:[email or web address] MICROSCOPIC DESCRIPTION Slides are reviewed. GROSS DESCRIPTION Received in fixative is one container labeled with the patient's name and designated bladder biopsy. The specimen consists of two irregular fragments of buckner soft tissue that in aggregate measure 0.3 x 0.2 x 0.1 cm. The specimen is totally submitted in one cassette. / SJ:roxanne 05/30/2021 TC:3 CPT: 72620
--- NOTE | 2021-05-30 07:37 | PCM.OPRPT ---
Problems Associated Problem List Diagnoses (1) Urgency of micturition: (2) Urgency incontinence: (3) Stress incontinence: Report of Operation Date of Procedure: 05/30/21 Pre-Operative Diagnosis: Stress incontinence, urgency of urination, urge incontinence Post-Operative Diagnosis: Same, bladder mucosal lesion Surgery/Procedure Performed:: Cystourethroscopy, pelvic exam under anesthesia, bladder biopsy with fulguration Surgeon: Luisa Mendez Type of Anesthesia: MAC Specimen's removed: Bladder biopsy Description of Procedure: Old female who underwent Botox and was having good control of her urge incontinence and decided to proceed with a mid urethral sling insertion. At this time she developed worsening incontinence. This was approximately 3 months ago. She now presents for cystoscopy under anesthesia with possible sling revision. She is unable to undergo procedures in the office secondary to discomfort. Informed consent was obtained. The patient was taken to the operating room and placed on the operating room table. Anesthesia monitored the head, neck, airway, IV access and vital signs throughout the case. Once anesthesia was appropriate ministered the patient was placed into dorsal lithotomy position was prepped and draped in usual sterile fashion. Pelvic examination revealed no extrusion of the mid urethral sling, no vaginal mass, no prolapse. The Blanco cystoscope with 0 degree lens was inserted under direct visualization through the urethra and into the urinary bladder. The urethra showed no extravasation of mesh and there was coaptation at the point of the sling in the mid urethra. At this time the 70 degree lens was used to visualize the bladder mucosa in its entirety. There was 1 small area of concern approximately 3 to 4 mm in diameter that was located adjacent to the right ureteral orifice. It was a white plaque visibly consistent with findings of squamous metaplasia with hyperkeratinosis. A biopsy forcep was used to remove the lesion in its entirety in the area was fulgurated for hemostatic control and tissue treatment. The patient's bladder was then emptied and the case was terminated. She was awakened and taken to the recovery room in good condition. There were no complications during this procedure. Grafts/Implants Used: none Complications none Admit VTE Documentation VTE Present on Admission: Yes VTE Mechan Device Prophylaxis: SCD's VTE Pharm Prophylaxis ordered?: No Reason prophylaxis not ordered:: Treatment Not Indicated
--- NOTE | 2021-05-30 07:40 | PCM.DC ---
Discharge Instructions Diet Discharge Diet: No restrictions Activity Discharge Activity: Return to Normal Activity Dressing / Incision Call your doctor if you observe: Fever of 101 or Higher, Inability to urinate, Inability to have a bowel movement and Uncontrolled pain Follow Up Care Please Follow Up With: Luisa Mendez MD When: call the office for appt Test Results: Test results from this visit will be discussed in further detail at your follow-up appointment, if applicable. Discharge Plan Admission Attending Provider: Luisa Mendez Primary Care Provider: Ezequiel Lepe Discharge Orders/Prescriptions Prescriptions: New oxycodone-acetaminophen [oxycodone-acetaminophen] 1 TABLET tablet 2 tab PO Q8H PRN PRN (Reason: Pain) 3 Days Qty: 10 RF: 0 phenazopyridine [Pyridium] 200 MG tablet 200 mg PO TID PRN PRN (Reason: Bladder Spasms) 7 Days Qty: 30 RF: 0 Continued (DME) Handicap Placard See Rx Instructions .ROUTE .MEDSUPPLY Qty: 1 RF: 0 albuterol sulfate 90 mcg/actuation aerosol powdr breath activated 2 inh INHALATION Q4H PRN (Reason: Sob &/Or Wheezing) Qty: 1 RF: 0 ipratropium-albuterol 0.5 mg-3 mg(2.5 mg base)/3 mL solution for nebulization 3 ml inhalation Q4H PRN (Reason: shortness of breath or wheezing) Qty: 90 RF: 0 ibuprofen 200 mg Tablet 400 mg PO Q6H PRN (Reason: Pain) RF: 0 hydrochlorothiazide 25 mg tablet 12.5 mg PO QAM RF: 0 pantoprazole 40 mg tablet,delayed release (DR/EC) 40 mg PO BID Qty: 180 RF: 1 Referrals / Follow Up: Ezequiel Lepe MD [Primary Care Provider] - Disposition Disposition (needs filled in before D/C Order can be placed): Home, Self Care
[2021-05-30 08:15] VITALS: BP 122/68; BP 126/92; PULSE 86; RESP 18; TEMP 36.3; O2SAT 94
[2021-05-30 08:20] VITALS: BP 122/68; BP 123/88; PULSE 85; RESP 18; O2SAT 94
[2021-05-30 08:25] VITALS: BP 122/68; BP 130/84; PULSE 84; RESP 18; O2SAT 93
[2021-05-30 08:30] VITALS: BP 122/68; BP 127/90; PULSE 79; RESP 18; TEMP 36.3; O2SAT 95
[2021-05-30 09:10] VITALS: BP 122/68
== END 2021-05-30 23:59 | disposition home or self-care (01) ==
LOC: SDC 05:43 → AC 05:44
PROVIDERS: PCP Internal Medicine; Referring Provider Urology; Visit Provider Urology
PROC: 0TJB8ZZ Inspection of Bladder, Via Natural or Artificial Opening Endoscopic (ICD-10-PCS; CPT 57410; principal; 2021-05-30 07:20)
DX: N30.20 Other chronic cystitis without hematuria (principal); J44.9 Chronic obstructive pulmonary disease, unspecified; I27.20 Pulmonary hypertension, unspecified; N39.3 Stress incontinence (female) (male); N39.46 Mixed incontinence; I10 Essential (primary) hypertension; Z85.528 Personal history of other malignant neoplasm of kidney; K21.9 Gastro-esophageal reflux disease without esophagitis; G47.33 Obstructive sleep apnea (adult) (pediatric)
CPT/HCPCS: 52204; 00910; 57287; 87426; 88305; J7120; J0330; J0744; J2405

== ENCOUNTER 2021-07-31 09:39 | Emergency (ER) | payer MEDICARE, MEDICAID, SELFPAY ==
[2021-07-31 09:41] VITALS: BP 148/97; PULSE 89; RESP 16; TEMP 36.3; O2SAT 98; BMI 54.7
--- NOTE | 2021-07-31 09:54 | EDS_ITS ---
HPI HPI - GI History of Present Illness Chief Complaint: Abd Pain Detail of Chief Complaint: Abdominal pain with nausea, vomiting diarrhea Informant: patient Abdominal Pain/Flank Pain Onset: Yesterday Context: Sudden Onset Timing: Continuous and Waxes and wanes Quality: Aching and Cramping Location: - (Initially upper quadrant now diffuse) Current Severity: Mild Maximum Severity: Moderate Worsened by: Movement Relieved by: Nothing Nausea/Vomiting/Emesis GI Symptom: Positive for Nausea and Vomiting Onset: Yesterday Episodes: 6 Diarrhea/Melena/Hematochezia GI Symptom: Positive for Diarrhea; Negative for Melena and Hematochezia Onset: Yesterday Stool Quality: Positive for Loose and Watery; Negative for Mucous, Maroon and BRB per rectum Associated Symptoms Associated Symptoms: Negative for Dysuria and Hematuria Narrative Narrative: Patient is a 46-year-old woman with history of asthma/COPD, obstructive sleep apnea, hypertension, and venous insufficiency of lower extremities who presents with initially upper quadrant abdominal pain that has become generalized with nausea, vomiting diarrhea. She denies hematemesis, melena medic easier. Denies any ill contacts. Has not been on antibiotics recently. Denies urinary symptoms. She does report dry mouth, thirst and orthostatic symptoms. She denies fever or chills. She denies cardiac or respiratory symptoms. She denies upper respiratory infectious symptoms. Prior similar symptoms: No Recent Illness/Hospitalization: No [facility] Medical History Abdominal wall abscess Anxiety Anxiety and depression Arthritis Asthma Bladder disease Bronchitis Cancer of left kidney Chronic back pain Chronic cough Chronic neck and back pain COPD (chronic obstructive pulmonary disease) COPD (chronic obstructive pulmonary disease) Costochondritis Depression Diarrhea Diarrhea Fatigue Fatigue Fatty stools Gastric reflux GERD (gastroesophageal reflux disease) H/O emotional problems History of echocardiogram History of edema History of hiatal hernia History of mononucleosis History of renal disease History of stress test History of ulceration HTN (hypertension) Incontinence Intertriginous dermatitis associated with moisture Intestinal ulcer Left ankle pain Lesion of bladder Limb weakness Loose, teeth Lung disease Mild chronic gastritis MARGARITA (obstructive sleep apnea) MARGARITA (obstructive sleep apnea) MARGARITA (obstructive sleep apnea) Overactive bladder Pulmonary hypertension Shortness of breath Shoulder pain Smoker SOB (shortness of breath) Stress incontinence UTI (urinary tract infection) Venous insufficiency of both lower extremities Wears glasses Home Medications Handicap Placard #1 ea 11/28/20 [Rx Last Taken Unknown] ibuprofen 400 mg PO Q6H PRN 02/20/21 [History Last Taken Unknown] albuterol sulfate 90 mcg/actuation breath activated powder inhaler 2 inh INHALATION Q4H PRN #1 ea 02/23/21 [Rx Last Taken Unknown] pantoprazole 40 mg tablet,delayed release 40 mg PO BID #180 tab 03/22/21 [Rx Last Taken Unknown] ipratropium 0.5 mg-albuterol 3 mg (2.5 mg base)/3 mL nebulization soln 3 ml INHALATION Q4H PRN #90 ml 03/28/21 [Rx Last Taken Unknown] hydrochlorothiazide 12.5 mg PO QAM 05/23/21 [History Last Taken Unknown] phenazopyridine [Pyridium] 200 mg PO TID PRN PRN 7 Days #30 tab 05/30/21 [Rx Last Taken Unknown] clotrimazole-betamethasone 1 %-0.05 % topical cream 1 applic TOPICAL BID PRN #45 g 07/03/21 [Rx Last Taken Unknown] dicyclomine 20 mg PO TIDAC #20 capsule 07/31/21 [Rx Last Taken Unknown] Allergy/AdvReac Type Severity Reaction Status Date / Time cefaclor [From Ceclor] Allergy Hives Verified 07/31/21 09:40 ciprofloxacin [From Cipro] Allergy Itching Verified 07/31/21 09:40 erythromycin base Allergy Upset Verified 07/31/21 09:40 [Erythromycin Base] Stomach moxifloxacin HCl Allergy Hives Verified 07/31/21 09:40 [From Avelox] Penicillins Allergy Upset Verified 07/31/21 09:40 Stomach sulfamethoxazole Allergy Unknown Verified 07/31/21 09:40 [From Bactrim] trimethoprim [From Bactrim] Allergy Unknown Verified 07/31/21 09:40 Family History Mother CVA (cerebral vascular accident) Thyroid disorder Ulcer Arthritis Father Diabetes Heart disease Myocardial infarction Arthritis Hypertension High cholesterol Skin cancer Son , age 17 Asthma Large B-cell lymphoma Other Anxiety Melanoma Respiratory disease Surgical History History of ankle surgery History of cystoscopy History of esophagogastroduodenoscopy (EGD) (~01/20/20) History of lymph node biopsy History of partial hysterectomy History of sinus surgery History of tonsillectomy Hx of cholecystectomy Hx of cystoscopy Hx of hysterectomy Hx of nasal septoplasty Hx of prior ablation treatment Hx of tonsillectomy Social History household members: children Smoking Status: Current every day smoker tobacco type: cigarettes Tobacco: How many years used: 25 alcohol intake: never substance use type: does not use what type of physical activity do you participate in: none do you feel safe at home: Yes ROS ROS ED Constitutional Constitutional ED: Denies chills, fever(s), subjective, sweats or weight loss ENT ENT ED: Denies ear pain, rhinorrhea or sore throat Cardiovascular Cardiovascular: Denies chest pain, orthopnea, palpitations, paroxysmal nocturnal dyspnea or racing heartbeat Respiratory/Chest Respiratory/Chest: Denies cough, dyspnea, dyspnea on exertion, orthopnea or paroxysmal nocturnal dyspnea Gastrointestinal Gastrointestinal: Reports abdominal pain, diarrhea, nausea and vomiting; Denies constipation or melena Genitourinary Genitourinary ED: Denies dysuria, hematuria or urinary frequency Musculoskeletal Musculoskeletal: Reports back pain; Denies arthralgias, myalgias or neck pain Neurologic Neurologic: Denies headache(s), paresthesias or weakness Psychiatric Psychiatric: Reports depression; Denies anxiety or suicidal thoughts Endocrine Endocrinology: Denies polydipsia, polyphagia or polyuria Hematologic/Lymphatic Hematologic/Lymphatic: Denies easy bleeding or easy bruising EXAM Physical Exam Const Vital Signs: 07/31/21 09:41 07/31/21 12:07 Temperature 97.3 F L Temperature Source Temporal Pulse Rate 89 89 Respiratory Rate 16 16 Blood Pressure 148/97 H 142/88 H Blood Pressure Mean 114 106 Pulse Ox 98 99 Oxygen Delivery Method Room Air Positive well nourished, well developed and obese General Appearance ED: well developed and other Patient appears uncomfortable. ; Negative for NAD or pallor Nutritional Appearance: obese HEENT Reports TM's clear and dry mucous membranes normocephalic and atraumatic Tympanic Membrane ED: Yes TM's clear Mouth ED: Yes dry mucous membranes Mouth: dry mucous membranes Eyes PERRL and EOMs intact bilaterally General Eye ED: Negative for pale conjunctiva or scleral icterus Neck no lymphadenopathy, supple and no JVD Resp normal respiratory effort and clear to auscultation bilaterally Auscultation: Negative for rales, rhonchi or wheezes Cardio regular rate, regular rhythm, S1 normal heart sound, S2 normal heart sound and no murmurs GI no masses; Negative for non-tender or non-distended Inspection: abdominal distention Auscultation: hypoactive bowel sounds; Negative for normoactive bowel sounds or hyperactive bowel sounds Palpation: soft, tender other (Generalized) and guarding other (Voluntary and generalized); Negative for rigid, hepatomegaly, splenomegaly, mass, pulsatile mass or rebound tenderness present Back/Spine no CVA tenderness Cervical Spine: Negative for cervical spine tenderness Thoracic Spine / Upper Back: Negative for thoracic spinal tenderness Lumbar Spine / Lower Back: Negative for lumbar spinal tenderness Extremity full ROM General Extremety ED: Negative for edema or tenderness General Extremity: Negative for edema Neuro CN's II-XII intact bilaterally and moves all extremities Sensorium / Orientation: alert, oriented to person, oriented to place and oriented to time Motor Exam: strength 5/5 throughout Psych mental status grossly normal and thought process normal Psych Narrative: Affect is flat Skin no wounds General Skin Exam: Negative for jaundice or pallor Lesions: no lesions Rashes: no rashes MDM MDM MDM Narrative Medical decision making narrative: Patient with abdominal pain, nausea vomiting diarrhea. Suspect viral etiology. Because she has significant tenderness will obtain baseline blood work to assess white count differential, renal function, CO2 and anion gap as well as electrolytes and specifically potassium for hypokalemia. Clinically she is dehydrated and 1 L of normal saline was ordered. Her nausea vomiting treated with Zofran and her pain was treated with morphine IV push, 4 mg. Since she has history of frequent urinary tract infections a UA was obtained as well. Patient was reassessed at 1213. She still has some discomfort. She was informed of results. Plan is to discharge to home. Prior to discharge she received additional dose of morphine and first dose of dicyclomine. Lab Data Attestation: I reviewed the patient's lab results. Lab results narrative: Liver enzymes were unremarkable. Electrolytes are unremarkable. Urine is unremarkable. Labs: Laboratory Results - last 24 hr 07/31/21 07/31/21 10:40 10:40 Sodium 138 Potassium 4.6 Chloride 109 H Carbon Dioxide 26.0 Anion Gap 3 L BUN 13 Creatinine 0.69 Estim Creat Clear Calc 89.72 Est GFR (MDRD) Af Amer 117 Est GFR (MDRD) Non-Af 97 BUN/Creatinine Ratio 18.9 Glucose 111 H Calcium 9.3 Total Bilirubin 0.40 AST 32 ALT 39 Alkaline Phosphatase 120 H Total Protein 7.6 Albumin 3.4 Globulin 4.2 Albumin/Globulin Ratio 0.8 L Lipase 59 L Urine Color Yellow Urine Clarity Sl. Cloudy Urine pH 6.0 Ur Specific [place] 1.010 Urine Protein Negative Urine Glucose (UA) Normal Urine Ketones Negative Urine Occult Blood 25 H Urine Nitrite Negative Urine Bilirubin Negative Urine Urobilinogen Normal Ur Leukocyte Esterase Negative Urine RBC 0-5 SEEN Urine WBC 0 SEEN Ur Squamous Epith Cells 0-5 SEEN Urine Bacteria 0 SEEN Urine Mucus 0 SEEN Discharge Plan Triage Chief Complaint: Abd Pain ED Provider: Satnam Hoffman Dx/Rx/DC Orders Clinical Impression: Abdominal pain, vomiting, and diarrhea, Dehydration, mild Instructions: ED Vomiting and Diarrhea ... Prescriptions: New dicyclomine 10 MG capsule 20 mg PO TIDAC Qty: 20 RF: 0 No Action (DME) Handicap Placard See Rx Instructions .ROUTE .MEDSUPPLY Qty: 1 RF: 0 albuterol sulfate 90 mcg/actuation aerosol powdr breath activated 2 inh INHALATION Q4H PRN (Reason: Sob &/Or Wheezing) Qty: 1 RF: 0 ipratropium-albuterol 0.5 mg-3 mg(2.5 mg base)/3 mL solution for nebulization 3 ml inhalation Q4H PRN (Reason: shortness of breath or wheezing) Qty: 90 RF: 0 ibuprofen 200 mg Tablet 400 mg PO Q6H PRN (Reason: Pain) RF: 0 hydrochlorothiazide 25 mg tablet 12.5 mg PO QAM RF: 0 phenazopyridine [Pyridium] 200 MG tablet 200 mg PO TID PRN PRN (Reason: Bladder Spasms) 7 Days Qty: 30 RF: 0 pantoprazole 40 mg tablet,delayed release (DR/EC) 40 mg PO BID Qty: 180 RF: 1 clotrimazole-betamethasone 1-0.05 % cream 1 applic topical BID PRN (Reason: rash) Qty: 45 RF: 1 Primary Care Provider: Ezequiel Lepe Referrals: Ezequiel Lepe MD [Primary Care Provider] - 3-5 Days if not improving Disposition Disposition: Home, Self Care
[2021-07-31] MEDS: 0.9% Normal Saline 1,000 ML 1000 ML IV (10:28)
[2021-07-31] MEDS: Morphine 4 MG/ML Syringe IV ×2 (10:28→12:29)
[2021-07-31] MEDS: Ondansetron 4 MG/2 ML Vial IV (10:28)
[2021-07-31 10:48] LABS: Bacteria 0 SEEN /hpf (None Seen); Mucous, Urine 0 SEEN /hpf (<or=2+); White Blood Cells 0 SEEN /hpf (0-5)
[2021-07-31 10:49] LABS: Color, Urine Yellow (Yellow); Glucose, Dipstick Normal (Normal); Ketone-Dipstick Negative (Negative); Leukocyte Esterase-Dipstick Negative /ul (Negative); Nitrite-Dipstick Negative (Negative); Occult Blood-Urine 25 /ul (Negative); Protein-Dipstick Negative (Negative); Urine Bilirubin Dipstick Negative (Negative); Urine Clarity Sl. Cloudy (Clear); Urine Urobilinogen Normal (Normal)
[2021-07-31 10:55] LABS: Red Blood Cells-Urine 0-5 SEEN /hpf (0-5); Squamous Epithelial Cells - UA 0-5 SEEN /hpf (5-10)
[2021-07-31 11:15] LABS: ALB/GLOB Ratio 0.8 RATIO (0.9-2.4); AST(SGOT) 32 U/L (15-37); Alanine Aminotransfer ALT/SGPT 39 U/L (13-56); Albumin, Serum 3.4 g/dL (3.2-5.0); Alkaline Phosphatase 120 U/L (45-117); Anion Gap 3 (5-15); BUN 13 mg/dL (7-18); BUN/Creat Ratio 18.9 RATIO (10-20); Calcium,Total 9.3 mg/dL (8.5-10.1); Chloride 109 mmol/L (98-107); Creatinine, Serum 0.69 mg/dL (0.55-1.02); EST Glomerular Filtration Rate 97 mL/min (>60); Est Glom Filt Rate - Afr Amer 117 mL/min (>60); Estimated Creatinine Clearance 89.72 ml/min; Globulin 4.2 g/dL (2.2-4.2); Glucose 111 mg/dL (74-106); Lipase 59 U/L (73-393); Potassium 4.6 mmol/L (3.5-5.1); Protein, Total 7.6 g/dL (6.4-8.2); Sodium Level 138 mmol/L (136-145)
[2021-07-31 12:07] VITALS: BP 142/88; PULSE 89; RESP 16; O2SAT 99
[2021-07-31] MEDS: Dicyclomine 10 MG Capsule 20 MG PO (12:28)
[2021-07-31 12:36] VITALS: BP 133/79; PULSE 79; RESP 16; O2SAT 99
== END 2021-07-31 12:39 | disposition home or self-care (01) ==
PROVIDERS: Emergency Provider Emergency Medicine; PCP Internal Medicine; Visit Provider Emergency Medicine
DX: R10.10 Upper abdominal pain, unspecified (principal); J44.9 Chronic obstructive pulmonary disease, unspecified; E86.0 Dehydration; I10 Essential (primary) hypertension; R11.2 Nausea with vomiting, unspecified; R19.7 Diarrhea, unspecified; M54.9 Dorsalgia, unspecified; G89.29 Other chronic pain; G47.33 Obstructive sleep apnea (adult) (pediatric); K21.9 Gastro-esophageal reflux disease without esophagitis; E66.9 Obesity, unspecified; F17.210 Nicotine dependence, cigarettes, uncomplicated; Z79.899 Other long term (current) drug therapy
CPT/HCPCS: 80048; 80053; 81001; 83690; 96361; 96374; 96375; 96376; 99284; J7030; A4216; J2405

== ENCOUNTER 2021-08-12 11:36 | Emergency (ER) | payer MEDICARE, MEDICAID, SELFPAY ==
[2021-08-12 11:37] VITALS: BP 140/84; PULSE 86; RESP 18; TEMP 36.8; O2SAT 97; BMI 56.0
--- NOTE | 2021-08-12 11:59 | RAD_ITS ---
STUDY: X-RAY - THORACIC SPINE REASON FOR EXAM: Female, 46 years old. Back pain TECHNIQUE: Frontal, lateral, and swimmer''s view(s) of the thoracic spine were obtained. COMPARISON: None. FINDINGS: Normal kyphosis of the thoracic spine. There is no substantial scoliosis. There is multilevel endplate spondylosis of the thoracic vertebrae. There is no acute fracture. The soft tissue structures are unremarkable. RAD/Thoracic Spine 3 Views IMPRESSION: Degenerative change. No fracture. Electronically Signed: Damian Berg MD at 13:00 EDT ,
--- NOTE | 2021-08-12 11:59 | EX.ED.DYSGE1 ---
HPI <VANITA Ramos - Last Filed: 08/12/21 12:04> History of Present Illness Chief Complaint: Fall Narrative Narrative: 46-year-old female with history of obesity, COPD, chronic kidney disease presents to the emergency department after mechanical fall. Patient states she was on her porch, was trying to pull her dog on a leash, she fell backwards striking her back. Patient is not on any blood thinning medicine, patient did not hit her head. Patient states she has worsening pain to her upper back and cervical spine. Patient denies any loss of consciousness. Patient states she also has some upper abdominal pain from the fall. Patient had a fall on her abdomen however states it could be from her muscles trying to get up. Patient did get brought in by EMS. [facility] <VANITA Ramos - Last Filed: 08/12/21 12:04> [facility] Medical History (Updated 08/12/21 @ 13:[address] Luke Morgan MD) Abdominal pain Abdominal wall abscess Anxiety Anxiety and depression Arthritis Asthma Bladder disease Bronchitis Cancer of left kidney Chronic back pain Chronic cough Chronic neck and back pain COPD (chronic obstructive pulmonary disease) COPD (chronic obstructive pulmonary disease) Costochondritis Depression Diarrhea Diarrhea Fatigue Fatigue Fatty stools Gastric reflux Gastroenteritis GERD (gastroesophageal reflux disease) H/O emotional problems History of echocardiogram History of edema History of hiatal hernia History of mononucleosis History of renal disease History of stress test History of ulceration HTN (hypertension) Incontinence Intertriginous dermatitis associated with moisture Intestinal ulcer Left ankle pain Lesion of bladder Limb weakness Loose, teeth Lung disease Mild chronic gastritis Nausea and vomiting MARGARITA (obstructive sleep apnea) MARGARITA (obstructive sleep apnea) MARGARITA (obstructive sleep apnea) Overactive bladder Pulmonary hypertension Shortness of breath Shoulder pain Smoker SOB (shortness of breath) Stress incontinence UTI (urinary tract infection) Venous insufficiency of both lower extremities Wears glasses Home Medications Handicap Placard #1 ea 11/28/20 [Rx Last Taken Unknown] ibuprofen 400 mg PO Q6H PRN 02/20/21 [History Last Taken Unknown] albuterol sulfate 90 mcg/actuation breath activated powder inhaler 2 inh INHALATION Q4H PRN #1 ea 02/23/21 [Rx Last Taken Unknown] pantoprazole 40 mg tablet,delayed release 40 mg PO BID #180 tab 03/22/21 [Rx Last Taken Unknown] ipratropium 0.5 mg-albuterol 3 mg (2.5 mg base)/3 mL nebulization soln 3 ml INHALATION Q4H PRN #90 ml 03/28/21 [Rx Last Taken Unknown] hydrochlorothiazide 12.5 mg PO QAM 05/23/21 [History Last Taken Unknown] clotrimazole-betamethasone 1 %-0.05 % topical cream 1 applic TOPICAL BID PRN #45 g 07/03/21 [Rx Last Taken Unknown] dicyclomine 10 mg capsule 20 mg PO TIDAC PRN #60 capsule 08/02/21 [Rx Last Taken Unknown] ondansetron 4 mg disintegrating tablet 4 mg PO Q8H PRN #60 tab 08/02/21 [Rx Last Taken Unknown] Allergy/AdvReac Type Severity Reaction Status Date / Time cefaclor [From Ceclor] Allergy Hives Verified 08/12/21 11:40 ciprofloxacin [From Cipro] Allergy Itching Verified 08/12/21 11:40 erythromycin base Allergy Upset Verified 08/12/21 11:40 [Erythromycin Base] Stomach moxifloxacin HCl Allergy Hives Verified 08/12/21 11:40 [From Avelox] Penicillins Allergy Upset Verified 08/12/21 11:40 Stomach sulfamethoxazole Allergy Unknown Verified 08/12/21 11:40 [From Bactrim] trimethoprim [From Bactrim] Allergy Unknown Verified 08/12/21 11:40 Family History Mother CVA (cerebral vascular accident) Thyroid disorder Ulcer Arthritis Father Diabetes Heart disease Myocardial infarction Arthritis Hypertension High cholesterol Skin cancer Son , age 17 Asthma Large B-cell lymphoma Other Anxiety Melanoma Respiratory disease Surgical History History of ankle surgery History of cystoscopy History of esophagogastroduodenoscopy (EGD) (~01/20/20) History of lymph node biopsy History of partial hysterectomy History of sinus surgery History of tonsillectomy Hx of cholecystectomy Hx of cystoscopy Hx of hysterectomy Hx of nasal septoplasty Hx of prior ablation treatment Hx of tonsillectomy Social History household members: children Smoking Status: Current every day smoker tobacco type: cigarettes Tobacco: How many years used: 25 alcohol intake: never substance use type: does not use what type of physical activity do you participate in: none do you feel safe at home: Yes ROS <VANITA Ramos - Last Filed: 08/12/21 12:04> ROS ED ROS Narrative Constitutional: Negative for fever, chills, weight loss or gain, weakness Eyes: Negative for vision loss, vision change, double vision ENT: Negative for any hearing changes, ringing in the ears, discharge, pain Nose: Negative for any congestion, runny nose, sinus pain, allergies Throat: Negative for any sore throat, swelling, voice changes, Cardiovascular: Negative for any chest pain, tightness, palpitations, racing heartbeat Respiratory: Negative for any cough, sputum production, hemoptysis, shortness of breath, shortness of breath on exertion, Gastrointestinal: Negative for any nausea, vomiting, diarrhea, constipation, blood in stool, blood in vomit. Positive for abdominal pain : Negative for any urinary frequency, incontinence, dysuria, retention, blood in urine Muscle skeletal: Negative for any muscle joint pain, stiffness, myalgias, arthralgias. Positive for back pain, neck pain Neurological: Negative for any headache, dizziness, syncope, numbness or tingling Skin: Negative for any rashes, lumps, itching, abrasions, lacerations Psychiatric: Negative for any depression, anxiety, stress, suicidal ideation, homicidal ideation Hematologic: Negative for any easy bruising, excessive bruising, easy bleeding Allergies: Negative for any eczema, hives, rash EXAM <VANITA Ramos - Last Filed: 08/12/21 12:04> Physical Exam Const Vital Signs: 08/12/21 11:37 08/12/21 11:42 Temperature 98.2 F Temperature Source Oral Pulse Rate 86 Respiratory Rate 18 Respiratory Effort Normal Non-Labored Respiratory Depth Normal Respiratory Pattern Tachypnea Blood Pressure 140/84 H Blood Pressure Mean 102 Pulse Ox 97 Oxygen Delivery Method Room Air Room Air Positive well nourished, well developed and obese General Appearance ED: well developed Nutritional Appearance: obese HEENT Reports TM's clear Tympanic Membrane ED: Yes TM's clear Eyes PERRL and EOMs intact bilaterally Eyes Narrative: Pupils equal round reactive to light, negative for any hematoma, septal hematoma Neck no lymphadenopathy Neck Narrative: Patient does have tenderness to the cervical spine from the fall. Negative for any step-off deformity. General: tenderness Chest Wall inspection of chest normal and palpation of chest normal Resp normal respiratory effort and clear to auscultation bilaterally Effort and Inspection: pain with movement Cardio regular rate and regular rhythm GI normal to inspection, nondistended, normoactive bowel sounds and non-distended GI Narrative: Patient does have tenderness to the epigastric area, patient states this was not here until she fell. Palpation: soft and tender Back/Spine no CVA tenderness Cervical Spine: cervical spine tenderness Thoracic Spine / Upper Back: thoracic spinal tenderness Extremity normal to inspection Neuro oriented x3 and CN's II-XII intact bilaterally Sensorium / Orientation: alert Motor Exam: strength 5/5 throughout Psych mental status grossly normal Skin no rashes or lesions noted <Dr. Luke Morgan MD - Last Filed: 08/12/21 13:35> Physical Exam Const Vital Signs: 08/12/21 11:37 08/12/21 11:42 Temperature 98.2 F Temperature Source Oral Pulse Rate 86 Respiratory Rate 18 Respiratory Effort Normal Non-Labored Respiratory Depth Normal Respiratory Pattern Tachypnea Blood Pressure 140/84 H Blood Pressure Mean 102 Pulse Ox 97 Oxygen Delivery Method Room Air Room Air [facility] <VANITA Ramos - Last Filed: 08/12/21 12:04> [facility] Radiography Diagnostic Testing: Clinical Impression(s) from Imaging Studies Thoracic Spine X-Ray 08/12/21 11:59 IMPRESSION: Degenerative change. No fracture. Electronically Signed: Damian Berg MD at 13:00 EDT Reading Location ID and State: [facility] / [place] , Service support , Cervical Spine X-Ray 08/12/21 12:10 IMPRESSION: Degenerative changes at C6-7. Electronically Signed: Damian Berg MD at 12:59 EDT , <Dr. Luke Morgan MD - Last Filed: 08/12/21 13:35> [facility] Narrative Medical decision making narrative: I have personally performed a face to face assessment of the patient and have reviewed the RUSLAN Note. I performed a substantive portion of the visit including all aspects of the following. My dupont findings include: History is [46-year-old female who fell off her porch today and addended previously and within the last several days. Complaining of pain to her neck and back. No LOC. She is on no blood thinners. Fell to the ground.] Exam is [46-year-old female. Vital signs stable afebrile. She is morbidly obese. She sitting upright in bed. Squad did not have a c-collar that would fit her. H EENT exam unremarkable. Pupils round reactive to light. No facial trauma. Scalp nontender. Back she has diffuse tenderness on her upper back neck and thoracic spine. There is no bruising. Trachea midline. Lungs are clear. Heart regular rhythm no murmur. Chest wall nontender. Abdomen morbidly obese but soft. No peritoneal signs. Pelvic girdle intact. Moving all 4 extremities. Nontender. No deformity. 5-5 campus wellness coordinator strength. Dorsi plantarflexion intact. Neurologically she is awake and alert.] Medical Decision Making [x-rays will be obtained of the patient's neck and back. She was given a Percocet for pain.] Other additions or changes: [None] Repeat exam she is doing well at 1:25 PM. We discussed her x-rays which are chronic changes but no acute fractures. She is comfortable being discharged home. Radiography Diagnostic Testing: Clinical Impression(s) from Imaging Studies Thoracic Spine X-Ray 08/12/21 11:59 IMPRESSION: Degenerative change. No fracture. Electronically Signed: Damian Berg MD at 13:00 EDT , Cervical Spine X-Ray 08/12/21 12:10 IMPRESSION: Degenerative changes at C6-7. Electronically Signed: Damian Berg MD at 12:59 EDT , Cervical spine 3 views shows no acute abnormality. Chronic changes. Read both myself and the radiologist. Thoracic spine 2 views read by myself and the radiologist shows no acute abnormality. Discharge Plan Triage Chief Complaint: Fall ED Midlevel Provider: Tacho Duran ED Provider: Luke Morgan Dx/Rx/DC Orders Clinical Impression: Fall, Acute cervical myofascial strain, Back contusion Instructions: ED Back Contusion, ED Neck Sprain or Strain Prescriptions: No Action (DME) Handicap Placard See Rx Instructions .ROUTE .MEDSUPPLY Qty: 1 RF: 0 albuterol sulfate 90 mcg/actuation aerosol powdr breath activated 2 inh INHALATION Q4H PRN (Reason: Sob &/Or Wheezing) Qty: 1 RF: 0 ipratropium-albuterol 0.5 mg-3 mg(2.5 mg base)/3 mL solution for nebulization 3 ml inhalation Q4H PRN (Reason: shortness of breath or wheezing) Qty: 90 RF: 0 ondansetron 4 mg tablet,disintegrating 4 mg PO Q8H PRN (Reason: nausea and vomiting) Qty: 60 RF: 1 dicyclomine 10 mg capsule 20 mg PO TIDAC PRN (Reason: abdominal discomfort) Qty: 60 RF: 0 ibuprofen 200 mg Tablet 400 mg PO Q6H PRN (Reason: Pain) RF: 0 hydrochlorothiazide 25 mg tablet 12.5 mg PO QAM RF: 0 pantoprazole 40 mg tablet,delayed release (DR/EC) 40 mg PO BID Qty: 180 RF: 1 clotrimazole-betamethasone 1-0.05 % cream 1 applic topical BID PRN (Reason: rash) Qty: 45 RF: 1 Primary Care Provider: Ezequiel Lepe Referrals: Ezequiel Lepe MD [Primary Care Provider] - 1 Week if not improving Activity Restrictions/Additional Instructions: Ice all sore areas down. Hot shower warm bath to relax the muscles. Motrin for pain and inflammation. Tylenol for pain. Follow-up with your doctor if not improving. Disposition Disposition: Home, Self Care
[2021-08-12] MEDS: oxyCODONE 5 MG Tablet PO (12:00)
--- NOTE | 2021-08-12 12:10 | RAD_ITS ---
STUDY: X-RAY - CERVICAL SPINE REASON FOR EXAM: Female, 46 years old. Neck pain TECHNIQUE: 3 view(s) of the cervical spine were obtained. COMPARISON: None FINDINGS: Normal anterior atlantoaxial articulation. Normal odontoid process. Normal cervical lordosis. Normal vertebral bodies. There is disc space narrowing and spurring at C6-7. The soft tissue structures are unremarkable. There is no demonstrated fracture of the cervical spine. RAD/Cerv Spine 2 or 3 Views IMPRESSION: Degenerative changes at C6-7. Electronically Signed: Damian Berg MD at 12:59 EDT ,
[2021-08-12] MEDS: Ondansetron ODT 4 MG Tablet PO (12:36)
== END 2021-08-12 13:43 | disposition home or self-care (01) ==
PROVIDERS: Emergency Provider Emergency Medicine; PCP Internal Medicine; Visit Provider Emergency Medicine
DX: S16.1XXA Strain of muscle, fascia and tendon at neck level, initial encounter (principal); S20.229A Contusion of unspecified back wall of thorax, initial encounter; W17.89XA Other fall from one level to another, initial encounter; Y92.008 Other place in unspecified non-institutional (private) residence as the place of occurrence of the external cause; I12.9 Hypertensive chronic kidney disease with stage 1 through stage 4 chronic kidney disease, or unspecified chronic kidney disease; N18.9 Chronic kidney disease, unspecified; J44.9 Chronic obstructive pulmonary disease, unspecified; E66.9 Obesity, unspecified; F17.210 Nicotine dependence, cigarettes, uncomplicated
CPT/HCPCS: 72040; 72072; 99284

== ENCOUNTER 2021-08-22 12:23 | Outpatient (CLI) | payer MEDICARE, MEDICAID, SELFPAY ==
--- NOTE | 2021-08-22 12:28 | CT_ITS ---
STUDY: CT SCAN OF THORAX WITHOUT INTRAVENOUS CONTRAST DEMONSTRATION. REASON FOR EXAM: Female, 46 years old. Lung Nodule RADIATION DOSAGE (If Supplied By Facility): CTDIvol = ( 20.14 ) mGy, DLP = ( 781.35 ) mGycm. Individualized dose optimization techniques were used for this CT.? TECHNIQUE: Multiple axial tomographic images are obtained from the thoracic inlet down to the level of the adrenal glands without intravenous contrast administration. Coronal and sagittal reconstruction was obtained as well. COMPARISON: Comparison is made with prior study dated 06/05/2020. FINDINGS: Stable small benign-appearing bilateral axillary. Stable 16 mm noncalcified nodule in the peripheral lateral aspect of the right lower lobe as seen on axial image #68. Coronary artery calcification. Small stable mediastinal lymph nodes. CT/Chest without Contrast IMPRESSION: Stable examination. Electronically Signed: Michael Jacome MD at 15:02 EDT ,
[2021-08-22 12:30] VITALS: PULSE 102; PULSE 107; PULSE 116; PULSE 119; PULSE 123; PULSE 132; PULSE 85; O2SAT 93; O2SAT 94; O2SAT 95; O2SAT 96; O2SAT 97
--- NOTE | 2021-08-22 14:06 | PCM.PSN.6M ---
PSN 6 Minute Walk Test 6 Minute Walk Test 6 Minute Walk Test: 6 Minute Walk Test PSN:6-Minute Walk Test Start: 08/22/21 12:43 Freq: Status: Active Protocol: [id number].6MINW Document 08/22/21 12:30 HJ (Rec: 08/22/21 12:45 HJ [id number]) 6 Minute Walk Test Date Performed 08/22/21 Time Performed 12:30 Height 5 ft 5 in Weight: 146.057 kg Weight in Pounds 322.[address]: Kj Lanier FIO2 (% Oxygen) 21 Assistive device used: None Pre-test Oxygen Delivery Method Room Air Pulse Ox (%) 96 Pulse Rate (60-100 beats/min) 85 Dyspnea Milton Scale (0-10) 0 Exertion Milton Scale (6-20) 6 1st minute Oxygen Delivery Method Room Air Pulse Ox (%) 95 Pulse Rate (60-100 beats/min) 107 H 2nd minute Oxygen Delivery Method Room Air Pulse Ox (%) 95 Pulse Rate (60-100 beats/min) 119 H 3rd minute Oxygen Delivery Method Room Air Pulse Ox (%) 94 Pulse Rate (60-100 beats/min) 123 H 4th minute Oxygen Delivery Method Room Air Pulse Ox (%) 94 Pulse Rate (60-100 beats/min) 132 H 5th minute Oxygen Delivery Method Room Air Pulse Ox (%) 93 Pulse Rate (60-100 beats/min) 116 H 6th minute Oxygen Delivery Method Room Air Pulse Ox (%) 94 Pulse Rate (60-100 beats/min) 123 H Post-test Oxygen Delivery Method Room Air Pulse Ox (%) 97 Pulse Rate (60-100 beats/min) 102 H Dyspnea Milton Scale (0-10) 3 Exertion Milton Scale (6-20) 13 Full Laps Walked 16 Partial Lap, Number of Tiles Walked 12 Total Distance Walked (ft) 956 Interpretation Interpretation: Patient was noted to be 96% on room air at rest and had no significant desaturation. However, patient did have significant tachycardia with a peak heart rate of 132 bpm. In total, the patient traveled 956 feet over the course of 6 minutes on room air with no assist devices or breaks. These findings are consistent with a cardiovascular limitation exercise tolerance. Recommendations Recommendations: No supplemental oxygen is indicated at this time. Patient may benefit from a cardiovascular evaluation.
== END 2021-08-22 23:59 | disposition home or self-care (01) ==
PROVIDERS: PCP Internal Medicine; Referring Provider Internal Medicine Critical Care Medicine; Visit Provider Internal Medicine Critical Care Medicine
DX: Z87.891 Personal history of nicotine dependence (principal)
CPT/HCPCS: 71250; 94618

== ENCOUNTER 2021-09-06 17:44 | Emergency (ER) | payer MEDICARE, MEDICAID, SELFPAY ==
[2021-09-06 17:45] VITALS: BP 140/85; PULSE 75; RESP 15; TEMP 36.8; O2SAT 98; BMI 55.0
--- NOTE | 2021-09-06 18:07 | EKG12_ITS ---
Test Reason : CP Blood Pressure : / mmHG Vent. Rate : 076 BPM Atrial Rate : 076 BPM P-R Int : 138 ms QRS Dur : 082 ms QT Int : 398 ms P-R-T Axes : 070 054 036 degrees QTc Int : 447 ms Normal sinus rhythm Normal ECG Confirmed by ANGELA FRANCO, NELSON ([id number]), sound editor TIM ANTOINE ([id number]) on 09/08/2021 10:10:19 AM Referred By: JOCELINE Confirmed By:NELSON MILLER MD
[2021-09-06 18:11] VITALS: O2SAT 98
--- NOTE | 2021-09-06 18:15 | RAD_ITS ---
STUDY: X-RAY CHEST REASON FOR EXAM: Female, 46 years old. SOB, BLURRY VISION- X4HRS. SEVERE BACK PAIN AT NIGHT. chest pain TECHNIQUE: XR Chest 1 View COMPARISON: 02.15.[address] of 08.22.21 FINDINGS: 20mm right lower lobe mass. Normal size heart. Normal mediastinum and jalyn. Normal visualized pulmonary arteries. There is atherosclerotic calcification of the aortic arch with tortuosity. There are diffuse degenerative changes of the visualized thoracic spine. There is degenerative osteoarthritis of the bilateral shoulders. There is no demonstrated abnormality of the visualized soft tissue structures of the upper abdomen. RAD/Chest 1 View (Portable) IMPRESSION: 20mm right lower lobe mass. This has enlarged since the cxr of 02.15.21. However it is stable in size since the recent ct scan. Electronically Signed: Jovan Patel MD at 18:45 EDT ,
--- NOTE | 2021-09-06 18:15 | EKG12_ITS ---
Test Reason : REPEAT Blood Pressure : / mmHG Vent. Rate : 068 BPM Atrial Rate : 068 BPM P-R Int : 142 ms QRS Dur : 074 ms QT Int : 402 ms P-R-T Axes : 049 035 026 degrees QTc Int : 427 ms Normal sinus rhythm Normal ECG Confirmed by ANGELA FRANCO, NELSON ([id number]), video effects editor TIM ANTOINE ([id number]) on 09/08/2021 10:10:32 AM Referred By: JOCELINE Confirmed By:NELSON MILLER MD
[2021-09-06 18:19] LABS: Absolute Neutrophil Count 8.6 X10^3/uL (2.0-7.7); Basophil# 0.04 X10^3/uL; Basophil% 0.3 % (0-1); Eosinophil# 0.07 X10^3/uL; Eosinophils% 0.6 % (0-5); Hematocrit 42.7 % (37-47); Hemoglobin 14.2 g/dL (12.0-15.0); Lymphocyte % 24.4 % (19-41); Mean Corp Hgb Conc 33.3 g/dL (32-36); Mean Corpuscular Volume 87.1 fL (81-99); Mean Platelet Vol. 10.2 fl (6.2-12.0); Monocyte# 0.55 X10^3/uL; Monocyte% 4.5 % (0-10); NRBC Flagged by Analyzer 0 % (0-5); Neutrophil # 8.58 X10^3/uL (2.7-7.7); Neutrophil % 69.8 % (47-70); Platelet Count 301 K/mm3 (150-450); RBC Distribution Width CV 12.9 % (11.6-14.6); RBC Distribution Width SD 40.6 fl (35.1-43.9); White Blood Count 12.3 K/mm3 (4.4-11.0)
--- NOTE | 2021-09-06 18:19 | ED.VIS.CHEST ---
HPI History of Present Illness Chief Complaint: Chest Pain Informant: patient Onset/Context/Timing Onset: Today and Hours Activity at onset: gradual Timing: Continuous Quality: Positive for Aching Location: Left Parasternal Current Severity: Mild Maximum Severity: Mild Worsened By: Nothing Relieved By: Nothing Associated Symptoms: Positive for Lightheadedness; Negative for Nausea, Vomiting, Diaphoresis, Dyspnea, Cough, Fever, Acid Reflux and Palpitations Narrative Narrative: 46-year-old female with a history of COPD. States she has a negative stress test 2 years ago. She is not diabetic she is never had a DVT. States that she has had some chest tightness and lightheadedness last several days. Today it was left parasternal. Began about 4 to 5 hours ago around 2:00 in the afternoon. Also states she has had some recent exertional dyspnea. Denies any leg pain or swelling. No hemoptysis. Prior Similar Symptoms: Yes Recent Illness/Hospitalization: No CVD Risk Factors: Positive for Hypertension and Smoking; Negative for Diabetes, Hypercholesterolemia and Family History 1' </=55 PE Risk Factors: Negative for Recent Travel/Surgery, Recent Immobilization, Prior DVT or PE, Cancer and OCP + Smoking + >/=35 TAD Risk Factors: Negative for Marfan's Syndrome [facility] OF [facility] Medical History Abdominal pain Abdominal wall abscess Anxiety Anxiety and depression Arthritis Asthma Bladder disease Bronchitis Cancer of left kidney Cervical radiculopathy Chronic back pain Chronic cough Chronic neck and back pain COPD (chronic obstructive pulmonary disease) COPD (chronic obstructive pulmonary disease) Costochondritis Depression Diarrhea Diarrhea Fatigue Fatigue Fatty stools Gastric reflux Gastroenteritis GERD (gastroesophageal reflux disease) H/O emotional problems History of echocardiogram History of edema History of hiatal hernia History of mononucleosis History of renal disease History of stress test History of ulceration HTN (hypertension) Incontinence Intertriginous dermatitis associated with moisture Intestinal ulcer Left ankle pain Lesion of bladder Limb weakness Loose, teeth Lung disease Mild chronic gastritis Nausea and vomiting MARGARITA (obstructive sleep apnea) MARGARITA (obstructive sleep apnea) MARGARITA (obstructive sleep apnea) Overactive bladder Pulmonary hypertension Shortness of breath Shoulder pain Smoker SOB (shortness of breath) Stress incontinence UTI (urinary tract infection) Venous insufficiency of both lower extremities Wears glasses Home Medications Handicap Bryant #1 ea 11/28/20 [Rx Last Taken Unknown] ibuprofen 400 mg PO Q6H PRN 02/20/21 [History Last Taken Unknown] albuterol sulfate 90 mcg/actuation breath activated powder inhaler 2 inh INHALATION Q4H PRN #1 ea 02/23/21 [Rx Last Taken Unknown] pantoprazole 40 mg tablet,delayed release 40 mg PO BID #180 tab 03/22/21 [Rx Last Taken Unknown] ipratropium 0.5 mg-albuterol 3 mg (2.5 mg base)/3 mL nebulization soln 3 ml INHALATION Q4H PRN #90 ml 03/28/21 [Rx Last Taken Unknown] hydrochlorothiazide 12.5 mg PO QAM 05/23/21 [History Last Taken Unknown] sucralfate 1 gram tablet 1 g PO QACHS 30 Days #120 tab 08/14/21 [Rx Last Taken Unknown] Allergy/AdvReac Type Severity Reaction Status Date / Time cefaclor [From Ceclor] Allergy Hives Verified 09/06/21 17:57 ciprofloxacin [From Cipro] Allergy Itching Verified 08/14/21 14:36 erythromycin base Allergy Upset Verified 09/06/21 17:57 [Erythromycin Base] Stomach moxifloxacin HCl Allergy Hives Verified 09/06/21 17:57 [From Avelox] Penicillins Allergy Upset Verified 09/06/21 17:57 Stomach sulfamethoxazole Allergy Unknown Verified 09/06/21 17:57 [From Bactrim] trimethoprim [From Bactrim] Allergy Unknown Verified 09/06/21 17:57 Family History Mother CVA (cerebral vascular accident) Thyroid disorder Ulcer Arthritis Father Diabetes Heart disease Myocardial infarction Arthritis Hypertension High cholesterol Skin cancer Son , age 17 Asthma Large B-cell lymphoma Other Anxiety Melanoma Respiratory disease Surgical History History of ankle surgery History of cystoscopy History of esophagogastroduodenoscopy (EGD) (~01/20/20) History of lymph node biopsy History of partial hysterectomy History of sinus surgery History of tonsillectomy Hx of cholecystectomy Hx of cystoscopy Hx of hysterectomy Hx of nasal septoplasty Hx of prior ablation treatment Hx of tonsillectomy Social History household members: children Smoking Status: Current every day smoker tobacco type: cigarettes Tobacco: How many years used: 25 alcohol intake: never substance use type: does not use what type of physical activity do you participate in: none do you feel safe at home: Yes ROS ROS ED ROS Narrative Denies. Review of Systems ROS Unobtainable: Denies due to encephalopathy Constitutional Constitutional ED: Denies fever(s) Eyes Eyes: Reports none ENT ENT ED: Denies ear pain Cardiovascular Cardiovascular: Reports as per HPI and chest pain; Denies palpitations or racing heartbeat Respiratory/Chest Respiratory/Chest: Reports dyspnea; Denies cough Gastrointestinal Gastrointestinal: Denies abdominal pain, diarrhea, nausea or vomiting Genitourinary Genitourinary ED: Denies dysuria Musculoskeletal Musculoskeletal: Denies myalgias Integumentary Denies rash Neurologic Neurologic: Denies headache(s) Psychiatric Psychiatric: Denies depression Endocrine Endocrinology: Denies polyuria Hematologic/Lymphatic Hematologic/Lymphatic: Denies easy bruising Allergic/Immunologic Allergic/Immunologic ED: Denies urticaria EXAM Physical Exam Narrative Exam Narrative: 46-year-old female no acute distress. Vital signs stable afebrile. Pulse ox 98% on room air no signs hypoxia. H EENT exam unremarkable. Neck nontender no JVD. Lungs clear to auscultation. Heart regular rate and rhythm rate about 75 no murmur. Abdomen morbidly obese soft nondistended normal bowel sounds no peritoneal signs. Mild epigastric tenderness. Also chest wall she has left lower sternal tenderness. Moving all 4 extremities. Calves nontender without edema or cords. Neurologically she is awake and alert with no focal motor deficits. She has equal and symmetrical radial pulses Const Vital Signs: 09/06/21 17:45 09/06/21 17:53 09/06/21 18:11 Temperature 98.2 F Temperature Source Oral Pulse Rate 75 Respiratory Rate 15 Respiratory Effort Normal Non-Labored Blood Pressure 140/85 H Blood Pressure Mean 103 Pulse Ox 98 98 Oxygen Delivery Method Room Air Room Air 09/06/21 18:44 09/06/21 19:11 09/06/21 20:06 Temperature Temperature Source Pulse Rate 74 78 Respiratory Rate 21 H 18 Respiratory Effort Blood Pressure 135/74 H 135/74 H 132/67 H Blood Pressure Mean 94 88 Pulse Ox 97 Oxygen Delivery Method Room Air Room Air 09/06/21 20:54 Temperature Temperature Source Pulse Rate 76 Respiratory Rate 18 Respiratory Effort Blood Pressure 133/86 H Blood Pressure Mean 101 Pulse Ox 95 Oxygen Delivery Method Room Air Positive well nourished, well developed and obese; Negative for cachectic, contractures or unkempt General Appearance ED: well developed and NAD; Negative for unkempt, cachectic, contractures or pallor Nutritional Appearance: obese; Negative for cachectic HEENT Reports moist mucous membranes normocephalic and atraumatic; Negative for trauma or tenderness Eyes PERRL and EOMs intact bilaterally General Eye ED: Negative for pale conjunctiva or scleral icterus Neck no lymphadenopathy, supple and no JVD General: Negative for tenderness Chest Wall inspection of chest normal; Negative for palpation of chest normal Chest: tenderness Resp normal respiratory effort and clear to auscultation bilaterally Effort and Inspection: respiratory distress Auscultation: Negative for rales, rhonchi or wheezes Cardio regular rate, regular rhythm, S1 normal heart sound, S2 normal heart sound and no murmurs Rate: Negative for bradycardia or tachycardic GI normal to inspection, nondistended, normoactive bowel sounds, soft to palpation, non-distended and no masses; Negative for non-tender or hepatosplenomegaly Auscultation: Negative for hyperactive bowel sounds Palpation: Negative for splenomegaly or mass Back/Spine no CVA tenderness General Back: Negative for CVA tenderness Extremity normal to inspection General Extremety ED: Negative for edema, pulses abnormal or tenderness General Extremity: Negative for edema or pulses abnormal Neuro oriented x3 Sensorium / Orientation: awake, alert, oriented to person, oriented to place and oriented to time Motor Exam: strength 5/5 throughout Psych mental status grossly normal Appearance: Negative for unkempt Attitude: No agitated Mood & Affect: Negative for depressed, anxious or tearful Skin no rashes or lesions noted and no wounds General Skin Exam: Negative for jaundice or pallor Rashes: No rashes noted Heart Score History: Slightly/Non-Suspicious ECG: Normal Age: >45 - <65 years Risk Factors: 1 or 2 Risk Factors Troponin: </= Normal Limit Score: 2 MDM MDM MDM Narrative Medical decision making narrative: 46-year-old female with atypical chest pain. Has reproducible sternal and epigastric pain. She has obesity and is a smoker. She had a negative stress test 2 years ago. She undergo cardiac work-up. I am going to give her a GI cocktail and Protonix to see if that will relieve her symptoms. Her EKG is unremarkable. Repeat exam patient doing well at 8:20 PM. We went over test results. The GI cocktail and Protonix did nothing for pain. The nitro did nothing for her pain. She will be given morphine and Zofran. She did have gone over her test results and I am waiting on the second troponin and a repeat EKG. Second troponin normal at 4. Second EKG normal and unchanged. Patient symptoms improved with pain medication. On repeat exam at 9:46 PM she is comfortable being discharged home with chest pain of uncertain etiology. Lab Data Attestation: I reviewed the patient's lab results. Lab results narrative: CBC White count of 12 H&H 14 and 42. Platelets 301. Electrolytes unremarkable gap of 8 normal BUN and creatinine. Glucose 112. Troponin 5. Lipase 62. Labs: Laboratory Results - last 24 hr 09/06/21 09/06/21 09/06/21 18:05 18:05 18:05 WBC 12.3 H RBC 4.90 Hgb 14.2 Hct 42.7 MCV 87.1 MCH 29.0 MCHC 33.3 RDW Std Deviation 40.6 RDW Coeff of Saeid 12.9 Plt Count 301 MPV 10.2 Immature Gran % (Auto) 0.400 Neut % (Auto) 69.8 Lymph % (Auto) 24.4 Bremer % (Auto) 4.5 Eos % (Auto) 0.6 Baso % (Auto) 0.3 Absolute Neuts (auto) 8.6 H Absolute Lymphs (auto) 3.00 Nucleated RBC % 0 Sodium 139 Potassium 3.9 Chloride 106 Carbon Dioxide 25.0 Anion Gap 8 BUN 13 Creatinine 0.80 Estim Creat Clear Calc 74.26 Est GFR (MDRD) Af Amer 99 Est GFR (MDRD) Non-Af 82 BUN/Creatinine Ratio 16.3 Glucose 112 H Calcium 9.0 Troponin I High Sens 5 Lipase 09/06/21 09/06/21 18:05 20:20 WBC RBC Hgb Hct MCV MCH MCHC RDW Std Deviation RDW Coeff of Saeid Plt Count MPV Immature Gran % (Auto) Neut % (Auto) Lymph % (Auto) Bremer % (Auto) Eos % (Auto) Baso % (Auto) Absolute Neuts (auto) Absolute Lymphs (auto) Nucleated RBC % Sodium Potassium Chloride Carbon Dioxide Anion Gap BUN Creatinine Estim Creat Clear Calc Est GFR (MDRD) Af Amer Est GFR (MDRD) Non-Af BUN/Creatinine Ratio Glucose Calcium Troponin I High Sens 4 Lipase 62 L Radiography Chest X-Ray - ED: 1 View, Heart, Lungs, Mediastinum, Bony Structures, No Acute Disease and Chronic Changes Diagnostic Testing: Clinical Impression(s) from Imaging Studies Chest X-Ray 09/06/21 18:15 IMPRESSION: 20mm right lower lobe mass. This has enlarged since the cxr of 10.6.21. However it is stable in size since the recent ct scan. Electronically Signed: Jovan Patel MD at 18:45 EDT , Chest x-ray, portable, single view interpreted by myself shows no acute abnormality. Normal cardiac silhouette. Normal mediastinum. Normal aortic knob. From a prior study there is a right lower lobe nodule. Unchanged from prior CAT scan. Rhythm Strip Rhythm Strip: Sinus Rhythm Rate: 76 Ectopy: None EKG Initial EKG: Attestation: I personally reviewed and interpreted this EKG as follows: Interpretation: Sinus Rhythm and No Acute Injury Pattern Comments: Normal sinus rhythm rate of 76 no acute signs of GA nor ischemia nor dysrhythmia. Treatment and Re-Evaluation Narrative: Repeat EKG was obtained at 8:38 PM. Shows normal sinus rhythm rate of 68 no acute signs of GA or ischemia no change from the first. Discharge Plan Triage Chief Complaint: Chest Pain ED Provider: Luke Morgan Dx/Rx/DC Orders Clinical Impression: Chest pain, History of COPD Instructions: ED Chest Pain, Uncertain Cause Prescriptions: No Action (DME) Handgabi Hurtado See Rx Instructions .ROUTE .MEDSUPPLY Qty: 1 RF: 0 albuterol sulfate 90 mcg/actuation aerosol powdr breath activated 2 inh INHALATION Q4H PRN (Reason: Sob &/Or Wheezing) Qty: 1 RF: 0 ipratropium-albuterol 0.5 mg-3 mg(2.5 mg base)/3 mL solution for nebulization 3 ml inhalation Q4H PRN (Reason: shortness of breath or wheezing) Qty: 90 RF: 0 sucralfate [Carafate] 1 gram tablet 1 g PO QACHS 30 Days Qty: 120 RF: 0 ibuprofen 200 mg Tablet 400 mg PO Q6H PRN (Reason: Pain) RF: 0 hydrochlorothiazide 25 mg tablet 12.5 mg PO QAM RF: 0 pantoprazole 40 mg tablet,delayed release (DR/EC) 40 mg PO BID Qty: 180 RF: 1 Primary Care Provider: Ezequiel Lepe Referrals: Ezequiel Lepe MD [Primary Care Provider] - 3-5 Days Activity Restrictions/Additional Instructions: All your tests including chest x-ray 2 EKGs and 2 heart enzymes were unremarkable. Follow-up with your doctor. Return if feeling worse. Disposition Disposition: Home, Self Care
[2021-09-06] MEDS: Pantoprazole Sodium 40 MG Tablet PO (18:21)
[2021-09-06] MEDS: Mag Hydrox/Al Hydrox/Simeth 30 ML UDC PO (18:21)
[2021-09-06 18:32] LABS: Anion Gap 8 (5-15); BUN 13 mg/dL (7-18); BUN/Creat Ratio 16.3 RATIO (10-20); Chloride 106 mmol/L (98-107); EST Glomerular Filtration Rate 82 mL/min (>60); Est Glom Filt Rate - Afr Amer 99 mL/min (>60); Estimated Creatinine Clearance 74.26 ml/min; Glucose 112 mg/dL (74-106); Potassium 3.9 mmol/L (3.5-5.1); Sodium Level 139 mmol/L (136-145)
[2021-09-06 18:42] LABS: Troponin-I HS (w/2H Reflex) 5 pg/mL (3.0-54.0)
[2021-09-06 18:44] VITALS: BP 135/74; PULSE 74; RESP 21; O2SAT 97
[2021-09-06 18:54] LABS: Lipase 62 U/L (73-393)
[2021-09-06 19:11] VITALS: BP 135/74; PULSE 78
[2021-09-06] MEDS: Nitroglycerin SL (ED/IMG/CATH) 0.4 MG TABLET SL (19:11)
[2021-09-06 20:06] VITALS: BP 132/67; RESP 18
[2021-09-06 20:16] LABS: Reflex Troponin-HS? (from REC) Y
[2021-09-06] MEDS: Ondansetron 4 MG/2 ML Vial IV (20:30)
[2021-09-06] MEDS: morphine 8 MG/ML Syringe 6 MG IV (20:30)
[2021-09-06 20:54] VITALS: BP 133/86; PULSE 76; RESP 18; O2SAT 95
[2021-09-06 21:22] LABS: Troponin-I HS 4 pg/mL (3.0-54.0)
--- NOTE | 2021-09-06 21:54 | NURSING ---
discharge instructions reviewed pt denies any questions.
== END 2021-09-06 21:56 | disposition home or self-care (01) ==
PROVIDERS: Emergency Provider Emergency Medicine; PCP Internal Medicine; Visit Provider Emergency Medicine
DX: R07.89 Other chest pain (principal); J44.9 Chronic obstructive pulmonary disease, unspecified; R42 Dizziness and giddiness; R10.13 Epigastric pain; I10 Essential (primary) hypertension; M54.9 Dorsalgia, unspecified; G89.29 Other chronic pain; J45.909 Unspecified asthma, uncomplicated; M19.90 Unspecified osteoarthritis, unspecified site; E66.9 Obesity, unspecified; F17.210 Nicotine dependence, cigarettes, uncomplicated; Z79.899 Other long term (current) drug therapy
CPT/HCPCS: 71045; 80048; 83690; 84484; 85025; 93005; 96374; 96375; 99285; A4216; J2405

== ENCOUNTER 2021-09-18 09:29 | Day surgery (SDC) | payer MEDICARE, MEDICAID, SELFPAY ==
[2021-09-18] VITALS (9 sets, daily range): BP systolic 108–139; BP diastolic 72–96; PULSE 83–92; RESP 16–19; TEMP 36.5–36.7; O2SAT 91–96; BMI 50.4
[2021-09-18] MEDS: Lactated Ringers 1,000 ML 15 ML IV (09:45)
[2021-09-18] MEDS: Cefazolin 2 GM in 0.9% Normal Saline 100 ML IV (11:11)
--- NOTE | 2021-09-18 11:52 | PCM.DC ---
Discharge Instructions Diet Discharge Diet: No restrictions Activity Discharge Activity: Return to Normal Activity Dressing / Incision Call your doctor if your incision/area has: Continuous Slow Oozing, Sudden Increased Bleeding and Foul Smelling Discharge Call your doctor if you observe: Fever of 101 or Higher, Inability to urinate and Inability to have a bowel movement Follow Up Care Please Follow Up With: Luisa Mendez MD When: 2 weeks, call for appointment Test Results: Test results from this visit will be discussed in further detail at your follow-up appointment, if applicable. Discharge Plan Admission Attending Provider: Luisa Mendez Primary Care Provider: Ezequiel Lepe Discharge Orders/Prescriptions Prescriptions: New oxycodone-acetaminophen [oxycodone-acetaminophen] 1 TABLET tablet 2 tab PO Q8H PRN PRN (Reason: Pain) 3 Days Qty: 10 RF: 0 nitrofurantoin monohyd/m-cryst [Macrobid] 100 mg capsule 100 mg PO BID Qty: 6 RF: 0 Continued (DME) Handicap Placard See Rx Instructions .ROUTE .MEDSUPPLY Qty: 1 RF: 0 albuterol sulfate 90 mcg/actuation aerosol powdr breath activated 2 inh INHALATION Q4H PRN (Reason: Sob &/Or Wheezing) Qty: 1 RF: 0 budesonide-formoterol [Symbicort] 160-4.5 mcg/actuation HFA aerosol inhaler 2 puff inhalation BID Qty: 1 RF: 3 ibuprofen 200 mg Tablet 400 mg PO Q6H PRN (Reason: Pain) RF: 0 hydrochlorothiazide 25 mg tablet 12.5 mg PO QAM RF: 0 pantoprazole 40 mg tablet,delayed release (DR/EC) 40 mg PO BID Qty: 180 RF: 1 Referrals / Follow Up: Ezequiel Lepe MD [Primary Care Provider] - Disposition Disposition (needs filled in before D/C Order can be placed): Home, Self Care
[2021-09-18] MEDS: oxyCODONE 5 MG Tablet PO (12:53)
[2021-09-18] MEDS: Acetaminophen 325 MG Tablet PO (12:53)
--- NOTE | 2021-09-18 13:09 | PCM.OPRPT ---
Problems Associated Problem List Diagnoses (1) Stress incontinence: Report of Operation Date of Procedure: 09/18/21 Pre-Operative Diagnosis: Stress urinary incontinence Post-Operative Diagnosis: Same Surgery/Procedure Performed:: Cystoscopy, Bulkamid injection Surgeon: Luisa Mendez Type of Anesthesia: MAC Description of Procedure: The patient is a 46-year-old female with mixed urinary incontinence who presents for surgical intervention with Bulkamid injections for the stress portion of her leakage. Informed consent was obtained. The patient was taken to the operating room and placed on the operating room table. Anesthesia monitored the head, neck, airway, IV access and vital signs throughout the case. Once anesthesia was appropriate ministered, the patient was placed into dorsal lithotomy position and was prepped and draped in usual sterile fashion. At this time the sheath with the Bulkamid kit was prepared and connected with the inflow port, and the lens and light cord and camera were connected. The syringes were primed. The sheath was inserted through the urethra under direct visualization. The sheath was inserted all the way to the bladder neck at which point the needle was placed to 2 cm within the urinary bladder. The entire unit was pulled back into position, and in the 7 o'clock position of the urethra at correct depth, the bulky mid and needle was inserted to approximately 1/2 cm and was injected with half of a syringe with good ballooning of the urethra. This process was then repeated on the patient's urethra at the 5 o'clock position, 2 o'clock position and at last the 10 o'clock position. In total, 2 syringes of Bulkamid were used. At this time the cystoscope was removed and the case was terminated. The patient tolerated the procedure well and was awakened and taken to the recovery room in good condition. Complications none Admit VTE Documentation VTE Present on Admission: Yes VTE Mechan Device Prophylaxis: SCD's VTE Pharm Prophylaxis ordered?: No Reason prophylaxis not ordered:: Treatment Not Indicated
== END 2021-09-18 13:00 | disposition home or self-care (01) ==
LOC: SDC 09:30 → AC 09:31
PROVIDERS: PCP Internal Medicine; Referring Provider Urology; Visit Provider Urology
PROC: 3E0K8GC Introduction of Other Therapeutic Substance into Genitourinary Tract, Via Natural or Artificial Opening Endoscopic (ICD-10-PCS; CPT 52287; principal; 2021-09-18 11:05)
DX: N39.46 Mixed incontinence (principal); J44.9 Chronic obstructive pulmonary disease, unspecified; N32.81 Overactive bladder; R30.0 Dysuria; R35.1 Nocturia; N39.0 Urinary tract infection, site not specified; Z20.822 Contact with and (suspected) exposure to COVID-19; I10 Essential (primary) hypertension; G47.33 Obstructive sleep apnea (adult) (pediatric); K21.9 Gastro-esophageal reflux disease without esophagitis; F17.200 Nicotine dependence, unspecified, uncomplicated; Z79.899 Other long term (current) drug therapy
CPT/HCPCS: 51715; 00910; 87426; C9803; J7120; J2405

== ENCOUNTER 2021-10-20 13:19 | Emergency (ER) | payer MEDICARE, MEDICAID, SELFPAY ==
[2021-10-20 13:22] VITALS: BP 174/114; PULSE 113; RESP 28; TEMP 36.7; O2SAT 96; BMI 53.6
--- NOTE | 2021-10-20 13:56 | CT_ITS ---
STUDY: CT Abdomen And Pelvis W/ Contrast Injection 10/20/2021 4:17 PM REASON FOR EXAM: Female, 46 years old. ABDOMINAL PAIN abdominal pain TECHNIQUE: Transaxial images were obtained without oral contrast, and with IV 100mL [id number]-300 intravenous contrast. Individualized dose optimization techniques were used for this CT. COMPARISON: Mar 04 2021 12:04pm FINDINGS: Stable 16mm right lower lobe nodule. The visualized portions of the heart are within normal limits. There is hepatomegaly with diffuse hepatic enlargement. There is non-visualization of the gallbladder, which may be secondary to either contraction or a prior cholecystectomy. Unremarkable spleen. Unremarkable pancreas. Unremarkable bilateral adrenal glands. No acute findings of the right kidney. No acute findings of the left kidney. Unremarkable visualized stomach. Unremarkable small intestine. There are multiple colonic diverticula consistent with diverticulosis. The appendix is visualized and appears unremarkable. There are calcifications of the abdominal aorta. This is consistent for atherosclerotic disease. There is no abdominal aortic aneurysm. Unremarkable inferior vena cava. Subcentimeter mesenteric lymph nodes. Unremarkable urinary bladder. There is absence of the uterus consistent with a prior hysterectomy. There is an umbilical hernia containing fat. Unremarkable osseous structures. CT/Abdomen/Pelvis W IV Cont ONLY IMPRESSION: (NOT LISTED IN ORDER OF SIGNIFICANCE) Stable 16mm right lower lobe nodule. ACR Lung CT Screening Reporting T Data System (Lung-RADS) score: 2 - Benign Appearance or Behavior. Recommend continued annual screening with low-dose CT (LDCT) in 12 months. There are multiple colonic diverticula consistent with diverticulosis. There is hepatomegaly with diffuse hepatic enlargement. Other findings as above. Electronically Signed: Jovan Patel MD at 16:21 EDT ,
--- NOTE | 2021-10-20 14:14 | EDS_ITS ---
HPI <VANITA Ramos - Last Filed: 10/20/21 16:53> History of Present Illness Chief Complaint: Abd Pain Narrative Narrative: 46-year-old female with history of COPD, obesity, hypertension, GERD, chronic renal issues presents to the emergency department with 1 week of generalized abdominal pain. Patient states that started with diarrhea, patient then has pain is localized to the right lower quadrant. Patient states the pain is worse, states she feels feels constipated. She denies any fevers or chills. States to have nausea however no vomiting, denies any urinary frequency or blood in urine. Patient [place] any blood in stool or vomit. [facility] <VANITA Ramos - Last Filed: 10/20/21 16:53> [facility] Medical History (Updated 10/20/21 @ 16:52 by VANITA Ramos) Abdominal pain Abdominal wall abscess Anxiety Anxiety and depression Arthritis Asthma BiPAP (biphasic positive airway pressure) dependence Bladder disease Bronchitis Cancer of left kidney Cervical radiculopathy Chronic back pain Chronic cough Chronic neck and back pain COPD (chronic obstructive pulmonary disease) COPD (chronic obstructive pulmonary disease) Costochondritis Depression Diarrhea Diarrhea Fatigue Fatigue Fatty stools Gastric reflux Gastroenteritis GERD (gastroesophageal reflux disease) H/O emotional problems History of echocardiogram History of edema History of hiatal hernia History of mononucleosis History of renal disease History of stress test History of ulceration HTN (hypertension) Incontinence Intertriginous dermatitis associated with moisture Intestinal ulcer Left ankle pain Lesion of bladder Limb weakness Loose, teeth Lung disease Mild chronic gastritis Nausea and vomiting MARGARITA (obstructive sleep apnea) MARGARITA (obstructive sleep apnea) MARGARITA (obstructive sleep apnea) Overactive bladder Pulmonary hypertension Shortness of breath Shoulder pain Sleep apnea Smoker SOB (shortness of breath) Stress incontinence Stress incontinence UTI (urinary tract infection) Venous insufficiency of both lower extremities Wears glasses Home Medications Handicap Placard #1 ea 11/28/20 [Rx Last Taken Unknown] albuterol sulfate 90 mcg/actuation breath activated powder inhaler 2 inh INHALATION Q4H PRN #1 ea 02/23/21 [Rx Last Taken 09/18/21] pantoprazole 40 mg tablet,delayed release 40 mg PO BID #180 tab 03/22/21 [Rx Last Taken 09/18/21] budesonide-formoterol HFA 160 mcg-4.5 mcg/actuation aerosol inhaler 2 puff INHALATION BID #1 ea 09/07/21 [Rx Last Taken 09/18/21] nitrofurantoin monohyd/m-cryst [Macrobid] 100 mg PO Q12H 7 Days #14 cap 10/20/21 [Rx Last Taken Unknown] Allergy/AdvReac Type Severity Reaction Status Date / Time cefaclor [From Ceclor] Allergy Hives Verified 10/20/21 13:22 ciprofloxacin [From Cipro] Allergy Itching Verified 10/20/21 13:22 erythromycin base Allergy Upset Verified 10/20/21 13:22 [Erythromycin Base] Stomach moxifloxacin HCl Allergy Hives Verified 10/20/21 13:22 [From Avelox] Penicillins Allergy Upset Verified 10/20/21 13:22 Stomach sulfamethoxazole Allergy Unknown Verified 10/20/21 13:22 [From Bactrim] trimethoprim [From Bactrim] Allergy Unknown Verified 10/20/21 13:22 Family History (Reviewed 09/07/21 @ 13:42 by Montse Chawla COLLECTIVE BARGAINING SPECIALIST, COLLECTIVE BARGAINING SPECIALIST-C) Mother CVA (cerebral vascular accident) Thyroid disorder Ulcer Arthritis Father Diabetes Heart disease Myocardial infarction Arthritis Hypertension High cholesterol Skin cancer Son , age 17 Asthma Large B-cell lymphoma Other Anxiety Melanoma Respiratory disease Surgical History History of ankle surgery History of cystoscopy History of esophagogastroduodenoscopy (EGD) (~01/20/20) History of lymph node biopsy History of partial hysterectomy History of sinus surgery History of tonsillectomy Hx of cholecystectomy Hx of cystoscopy Hx of cystoscopy Hx of hysterectomy Hx of nasal septoplasty Hx of prior ablation treatment Hx of tonsillectomy Social History (Reviewed 09/07/21 @ 13:42 by Montse Chawla COLLECTIVE BARGAINING SPECIALIST, COLLECTIVE BARGAINING SPECIALIST-C) household members: children Smoking Status: Current every day smoker tobacco type: cigarettes Tobacco: How many years used: 25 alcohol intake: never substance use type: does not use what type of physical activity do you participate in: none do you feel safe at home: Yes ROS <VANITA Ramos - Last Filed: 10/20/21 16:53> ROS ED ROS Narrative Constitutional: Negative for fever, chills, weight loss, weakness Eyes: Negative for vision loss, vision change, double vision ENT: Negative for any sore throat, ear pain, congestion Cardiovascular: Negative for any chest pain, tightness, palpitations Respiratory: Negative for any cough, sputum production, hemoptysis, dyspnea, dyspnea on exertion, orthopnea Gastrointestinal: Negative for any vomiting, diarrhea, constipation, blood in stool, blood in vomit., Positive for abdominal pain, nausea, bowel change : Negative for any urinary frequency, dysuria, retention, blood in urine Muscle skeletal: Negative for any muscle joint pain, stiffness, myalgias, arthralgias, neck pain, back pain Neurological: Negative for any headache, syncope, numbness or tingling, dizziness Skin: Negative for any rashes, lumps, itching, abrasions, lacerations Psychiatric: Negative for any depression, anxiety, stress, suicidal ideation, homicidal ideation Hematologic: Negative for any easy bruising, excessive bruising, easy bleeding Allergies: Negative for any eczema, hives, rash EXAM <VANITA Ramos - Last Filed: 10/20/21 16:53> Physical Exam Narrative Exam Narrative: Vital signs reviewed. HEET: Head normocephalic atraumatic, TMs clear bilaterally. Posterior pharynx is clear, moist mucous membranes. Nares clear bilaterally. Neck: Supple with no lymphadenopathy or tenderness. No signs of meningismus, negative jolt sign. Cardiac: Regular rate and rhythm no murmurs gallops or rubs, equal peripheral pulses bilaterally. Respiratory: Lungs clear to auscultation bilaterally. No chest tenderness. Abdomen: Soft, nondistended. No abdominal bruit or pulsatile masses. No hepatosplenomegaly. Patient has tenderness to right lower quadrant. Extremities: No peripheral edema, no signs of gross trauma or deformity. Active full range of motion of all extremities. Neuro: Cranial nerves II through XII intact, no focal neurological deficits. Skin: Clean dry and intact with no rash, purpura, petechiae, vesicles or pustules. Backs/flank: No CVA tenderness, no midline spinal tenderness, no deformity. Psych: Normal mood and affect. No SI, HI or acute psychosis. Const Vital Signs: 10/20/21 13:22 Temperature 98.1 F Temperature Source Temporal Pulse Rate 113 H Respiratory Rate 28 H Blood Pressure 174/114 H Blood Pressure Mean 134 Pulse Ox 96 Oxygen Delivery Method Room Air Positive well nourished, well developed and obese General Appearance ED: well developed Nutritional Appearance: obese <Dr. Luke Morgan MD - Last Filed: 10/20/21 14:48> Physical Exam Const Vital Signs: 10/20/21 13:22 Temperature 98.1 F Temperature Source Temporal Pulse Rate 113 H Respiratory Rate 28 H Blood Pressure 174/114 H Blood Pressure Mean 134 Pulse Ox 96 Oxygen Delivery Method Room Air MDM <Tacho DuranVANITA - Last Filed: 10/20/21 16:53> [facility] Narrative Medical decision making narrative: Patient arrives in minimal discomfort secondary to abdominal pain. Patient received a full abdominal work-up. Patient CBC showed leukocytosis white blood count 11.6, patient's chemistries were unremarkable. Lipase was low at 68. Patient did receive a CAT scan of the abdomen pelvis, this showed a stable 16mm right lower lobe nodule, there are multiple colonic diverticula consistent with diverticulosis. There is hepatomegaly with diffuse hepatic enlargement no other findings. Patient did receive IV fluids, IV Zofran, morphine, Toradol. Patient did have improvement of symptoms. Patient's urinalysis was positive with infection, patient was positive for nitrates, 25 leukocyte esterase, 3+ bacteria. 10-25 red blood cells. We did look back on the patient's past culture of urine, Macrobid is 1 that she is not allergic to and is sensitive to this E. coli. Patient will be given a prescription for Macrobid, instructed to return for any worsening symptoms. At this time, patient stable for discharge Lab Data Attestation: I reviewed the patient's lab results. Labs: Laboratory Results - last 24 hr 10/20/21 10/20/21 10/20/21 14:20 14:20 15:00 WBC 11.6 H RBC 4.93 Hgb 14.5 Hct 43.2 MCV 87.6 MCH 29.4 MCHC 33.6 RDW Std Deviation 41.3 RDW Coeff of Saeid 13.0 Plt Count 341 MPV 9.9 Immature Gran % (Auto) 0.600 Neut % (Auto) 66.7 Lymph % (Auto) 26.6 Toombs % (Auto) 4.7 Eos % (Auto) 1.1 Baso % (Auto) 0.3 Absolute Neuts (auto) 7.7 Absolute Lymphs (auto) 3.08 Nucleated RBC % 0 Sodium 138 Potassium 3.8 Chloride 107 Carbon Dioxide 25.0 Anion Gap 6 BUN 11 Creatinine 0.76 Estim Creat Clear Calc 81.46 Est GFR (MDRD) Af Amer 105 Est GFR (MDRD) Non-Af 86 BUN/Creatinine Ratio 14.5 Glucose 125 H Calcium 9.0 Total Bilirubin 0.40 AST 22 ALT 38 Alkaline Phosphatase 112 Total Protein 7.7 Albumin 3.5 Globulin 4.2 Albumin/Globulin Ratio 0.8 L Lipase 68 L Urine Color Yellow Urine Clarity Sl. Cloudy Urine pH 6.0 Ur Specific [place] 1.025 Urine Protein 15 H Urine Glucose (UA) Normal Urine Ketones 5 H Urine Occult Blood 150 H Urine Nitrite Positive H Urine Bilirubin Negative Urine Urobilinogen Normal Ur Leukocyte Esterase 25 H Urine RBC 10-25 SEEN Urine WBC 0-5 SEEN Ur Squamous Epith Cells 0 SEEN Urine Bacteria 3+ Urine Mucus 0 SEEN Urine Test Negative Radiography Diagnostic Testing: Clinical Impression(s) from Imaging Studies Abdomen/Pelvis CT 10/20/21 13:56 IMPRESSION: (NOT LISTED IN ORDER OF SIGNIFICANCE) Stable 16mm right lower lobe nodule. ACR Lung CT Screening Reporting T Data System (Lung-RADS) score: 2 - Benign Appearance or Behavior. Recommend continued annual screening with low-dose CT (LDCT) in 12 months. There are multiple colonic diverticula consistent with diverticulosis. There is hepatomegaly with diffuse hepatic enlargement. Other findings as above. Electronically Signed: Jovan Patel MD at 16:21 EDT Reading Location ID and State: [facility] / [place] , Service support , <Dr. Luke Morgan MD - Last Filed: 10/20/21 14:48> [facility] Narrative Medical decision making narrative: I have personally performed a face to face assessment of the patient and have reviewed the RUSLAN Note. I performed a substantive portion of the visit including all aspects of the following. My dupont findings include: History is [46-year-old female is new past medical history of them evaluated with our nurse practitioner for complaint of abdominal pain. She has had a prior partial hysterectomy and cholecystectomy. States the pain is right-sided. Nothing particular makes it better or worse. Denies dysuria. No melena or fever.] Exam is [middle-aged female no acute distress. Vital signs stable. Afebrile. Does not look septic or toxic. H EENT exam unremarkable. Lungs are clear. Heart regular rhythm no murmur. Abdomen soft nondistended normal bowel sounds no peritoneal signs. Mild right-sided tenderness both upper and lower quadrants. No mass. No obstruction. Moving all 4 extremities. Nontender no edema.] Medical Decision Making [46-year-old with nonspecific abdominal pain with prior cholecystectomy hysterectomy. CAT scan labs pending.] Other additions or changes: [None] Lab Data Labs: Laboratory Results - last 24 hr 10/20/21 10/20/21 10/20/21 14:20 14:20 15:00 WBC 11.6 H RBC 4.93 Hgb 14.5 Hct 43.2 MCV 87.6 MCH 29.4 MCHC 33.6 RDW Std Deviation 41.3 RDW Coeff of Saeid 13.0 Plt Count 341 MPV 9.9 Immature Gran % (Auto) 0.600 Neut % (Auto) 66.7 Lymph % (Auto) 26.6 [place]om[place] % (Auto) 4.7 Eos % (Auto) 1.1 Baso % (Auto) 0.3 Absolute Neuts (auto) 7.7 Absolute Lymphs (auto) 3.08 Nucleated RBC % 0 Sodium 138 Potassium 3.8 Chloride 107 Carbon Dioxide 25.0 Anion Gap 6 BUN 11 Creatinine 0.76 Estim Creat Clear Calc 81.46 Est GFR (MDRD) Af Amer 105 Est GFR (MDRD) Non-Af 86 BUN/Creatinine Ratio 14.5 Glucose 125 H Calcium 9.0 Total Bilirubin 0.40 AST 22 ALT 38 Alkaline Phosphatase 112 Total Protein 7.7 Albumin 3.5 Globulin 4.2 Albumin/Globulin Ratio 0.8 L Lipase 68 L Urine Color Yellow Urine Clarity Sl. Cloudy Urine pH 6.0 Ur Specific [place] 1.025 Urine Protein 15 H Urine Glucose (UA) Normal Urine Ketones 5 H Urine Occult Blood 150 H Urine Nitrite Positive H Urine Bilirubin Negative Urine Urobilinogen Normal Ur Leukocyte Esterase 25 H Urine RBC 10-25 SEEN Urine WBC 0-5 SEEN Ur Squamous Epith Cells 0 SEEN Urine Bacteria 3+ Urine Mucus 0 SEEN Urine Test Negative Radiography Diagnostic Testing: Clinical Impression(s) from Imaging Studies Abdomen/Pelvis CT 10/20/21 13:56 IMPRESSION: (NOT LISTED IN ORDER OF SIGNIFICANCE) Stable 16mm right lower lobe nodule. ACR Lung CT Screening Reporting T Data System (Lung-RADS) score: 2 - Benign Appearance or Behavior. Recommend continued annual screening with low-dose CT (LDCT) in 12 months. There are multiple colonic diverticula consistent with diverticulosis. There is hepatomegaly with diffuse hepatic enlargement. Other findings as above. Electronically Signed: Jovan Patel MD at 16:21 EDT , Discharge Plan Triage Chief Complaint: Abd Pain Other Complaint: Nausea/Vomiting/Diarrhea ED Midlevel Provider: Tacho Duran ED Provider: Luke Morgan Dx/Rx/DC Orders Clinical Impression: Abdominal pain, UTI (urinary tract infection) Instructions: Abdominal Pain, ED CYSTITIS Female Adult Prescriptions: New nitrofurantoin monohyd/m-cryst [Macrobid] 100 mg capsule 100 mg PO Q12H 7 Days Qty: 14 RF: 0 No Action (DME) Handicap Placard See Rx Instructions .ROUTE .MEDSUPPLY Qty: 1 RF: 0 albuterol sulfate 90 mcg/actuation aerosol powdr breath activated 2 inh INHALATION Q4H PRN (Reason: Sob &/Or Wheezing) Qty: 1 RF: 0 budesonide-formoterol [Symbicort] 160-4.5 mcg/actuation HFA aerosol inhaler 2 puff inhalation BID Qty: 1 RF: 3 pantoprazole 40 mg tablet,delayed release (DR/EC) 40 mg PO BID Qty: 180 RF: 1 Primary Care Provider: Ezequiel Lepe Referrals: Ezequiel Lepe MD [Primary Care Provider] - Activity Restrictions/Additional Instructions: Please take antibiotics until completion. Print Language: Maori Disposition Disposition: Home, Self Care
[2021-10-20] MEDS: 0.9% Normal Saline 1,000 ML 1000 ML IV (14:15)
[2021-10-20] MEDS: Ondansetron 4 MG/2 ML Vial IV (14:16)
[2021-10-20] MEDS: Morphine 4 MG/ML Syringe IV (14:16)
[2021-10-20] MEDS: Ketorolac 15 MG/ML Vial IV (14:16)
[2021-10-20 14:28] LABS: Absolute Lymphocyte Count 3.08 X10^3/uL (0.83-4.51); Absolute Neutrophil Count 7.7 X10^3/uL (2.0-7.7); Basophil# 0.04 X10^3/uL; Basophil% 0.3 % (0-1); Eosinophil# 0.13 X10^3/uL; Eosinophils% 1.1 % (0-5); Hematocrit 43.2 % (37-47); Hemoglobin 14.5 g/dL (12.0-15.0); Lymphocyte # 3.08 X10^3/ul (0.83-4.51); Lymphocyte % 26.6 % (19-41); Mean Corp Hgb Conc 33.6 g/dL (32-36); Mean Corpuscular Hgb 29.4 pg (27.0-32.0); Mean Corpuscular Volume 87.6 fL (81-99); Mean Platelet Vol. 9.9 fl (6.2-12.0); Monocyte# 0.54 X10^3/uL; Monocyte% 4.7 % (0-10); NRBC Flagged by Analyzer 0 % (0-5); Neutrophil # 7.71 X10^3/uL (2.7-7.7); Neutrophil % 66.7 % (47-70); Platelet Count 341 K/mm3 (150-450); RBC Distribution Width SD 41.3 fl (35.1-43.9); Red Blood Count 4.93 M/mm3 (4.2-5.4); White Blood Count 11.6 K/mm3 (4.4-11.0)
[2021-10-20 14:48] LABS: ALB/GLOB Ratio 0.8 RATIO (0.9-2.4); AST(SGOT) 22 U/L (15-37); Alanine Aminotransfer ALT/SGPT 38 U/L (13-56); Albumin, Serum 3.5 g/dL (3.2-5.0); Alkaline Phosphatase 112 U/L (45-117); Anion Gap 6 (5-15); BUN 11 mg/dL (7-18); BUN/Creat Ratio 14.5 RATIO (10-20); Chloride 107 mmol/L (98-107); Creatinine, Serum 0.76 mg/dL (0.55-1.02); EST Glomerular Filtration Rate 86 mL/min (>60); Est Glom Filt Rate - Afr Amer 105 mL/min (>60); Estimated Creatinine Clearance 81.46 ml/min; Globulin 4.2 g/dL (2.2-4.2); Glucose 125 mg/dL (74-106); Lipase 68 U/L (73-393); Potassium 3.8 mmol/L (3.5-5.1); Protein, Total 7.7 g/dL (6.4-8.2); Sodium Level 138 mmol/L (136-145)
[2021-10-20 15:10] LABS: Mucous, Urine 0 SEEN /hpf (<or=2+); Squamous Epithelial Cells - UA 0 SEEN /hpf (5-10)
[2021-10-20 15:16] LABS: Color, Urine Yellow (Yellow); Glucose, Dipstick Normal (Normal); Ketone-Dipstick 5 mg/dl (Negative); Leukocyte Esterase-Dipstick 25 /ul (Negative); Nitrite-Dipstick Positive (Negative); Occult Blood-Urine 150 /ul (Negative); Protein-Dipstick 15 mg/dl (Negative); Specific Gravity, Urine 1.025 (1.002-1.030); Urine Bilirubin Dipstick Negative (Negative); Urine Clarity Sl. Cloudy (Clear); Urine Urobilinogen Normal (Normal)
[2021-10-20 15:22] LABS: Bacteria 3+ /hpf (None Seen); Red Blood Cells-Urine 10-25 SEEN /hpf (0-5); White Blood Cells 0-5 SEEN /hpf (0-5)
[2021-10-20 15:23] LABS: Internal QC Validated? YES +Cl - CLEAR BKGD; Pregnancy, Urine Negative Negative
[2021-10-20 16:53] VITALS: RESP 18
== END 2021-10-20 17:08 | disposition home or self-care (01) ==
PROVIDERS: Nurse Practitioner; Emergency Provider Emergency Medicine; PCP Internal Medicine; Visit Provider Emergency Medicine
DX: R10.31 Right lower quadrant pain (principal); J44.9 Chronic obstructive pulmonary disease, unspecified; N39.0 Urinary tract infection, site not specified; K57.30 Diverticulosis of large intestine without perforation or abscess without bleeding; G89.29 Other chronic pain; I10 Essential (primary) hypertension; R74.8 Abnormal levels of other serum enzymes; R16.0 Hepatomegaly, not elsewhere classified; K21.9 Gastro-esophageal reflux disease without esophagitis; N32.81 Overactive bladder; G47.33 Obstructive sleep apnea (adult) (pediatric); M19.90 Unspecified osteoarthritis, unspecified site; E66.9 Obesity, unspecified; F17.210 Nicotine dependence, cigarettes, uncomplicated; Z79.899 Other long term (current) drug therapy
CPT/HCPCS: 74177; 80053; 81001; 81025; 83690; 85025; 87077; 87086; 87088; 87186; 96361; 96374; 96375; 99284; J7030; Q9967; A4216; J2405

== ENCOUNTER → 2021-10-26 | Outpatient (CLI) | payer MEDICARE, MEDICAID, SELFPAY ==
[2021-10-26 11:07] LABS: Erythrocyte Sedimentation Rate 43 mm/hr (0-30)
[2021-10-26 11:10] LABS: Prothrombin Time (Protime)PT. 12.9 SECONDS (11.7-14.9)
[2021-10-26 11:12] LABS: Ammonia < 10.0 umol/L (11-32)
[2021-10-26 11:31] LABS: Hemoglobin A1c 6.3 % (3.8-5.6)
[2021-10-26 11:58] LABS: Amylase 35 U/L (25-115); Thyroid Stim Hormone (TSH) 3.45 uIU/mL (0.358-3.74)
[2021-10-26 12:14] LABS: HIV - WCH Non-Reactive (Nonreactive)
[2021-10-27 15:08] LABS: Anti-Centromere B Ab <0.2 AI (0.0-0.9); Anti-Chromatin <0.2 AI (0.0-0.9); Anti-Jo <0.2 AI (0.0-0.9); Anti-Scleroderma-70 AB <0.2 AI (0.0-0.9); RNP Ab <0.2 AI (0.0-0.9); SJOGREN'S Anti-SS-A test < 0.2 AI (0.0-0.9); SJOGREN'S Anti-SS-B test < 0.2 AI (0.0-0.9); Smith Ab <0.2 AI (0.0-0.9)
[2021-10-28 21:22] LABS: Anti-Mitochondrial AB <20.0 Units (0.0-20.0); Anti-dsDNA Ab <1 IU/mL (0-9)
[2021-10-29 11:07] LABS: Angiotensin Convert Enzyme 76 U/L (14-82); Ceruloplasmin 37.3 mg/dL (19.0-39.0); Cytoplasmic Ab (C-ANCA) <1:20 titer (Neg:<1:20); HEPATITIS B SURFACE AG Negative (Negative); Hep C Antibodies <0.1 s/co ratio (0.0-0.9); Hepatitis A IgM Antibody Negative (Negative); Hepatitis B Core AB IgM Negative (Negative)
[2021-10-29 12:28] LABS: Anti-Smooth Muscle ABS 8 Units (0-19); Copper, Serum or Plasma 155 ug/dL (80-158); Haptoglobin 305 mg/dL (42-296); Perinuclear Ab (P-ANCA) <1:20 titer (Neg:<1:20)
== END | disposition home or self-care (01) ==
LOC: LAB 10:20
PROVIDERS: PCP Internal Medicine; Visit Provider Nurse Practitioner Adult Health
DX: R10.13 Epigastric pain (principal); E66.01 Morbid (severe) obesity due to excess calories; R19.7 Diarrhea, unspecified; R16.0 Hepatomegaly, not elsewhere classified; R68.81 Early satiety; R53.83 Other fatigue; Z83.3 Family history of diabetes mellitus
CPT/HCPCS: 36415; 80074; 82140; 82150; 82164; 82390; 82525; 83010; 83036; 83516; 84443; 85610; 85652; 86140; 86225; 86235; 86256; 86703

== ENCOUNTER → 2021-11-07 | Outpatient (CLI) | payer MEDICARE, MEDICAID, SELFPAY ==
[2021-11-09 15:08] LABS: H. PYLORI STOOL AG Negative (Negative)
[2021-11-09 16:32] LABS: Giardia Lamblia, Stool EIA Negative (Negative); Pancreatic Elastase, Fecal > 500 (>200)
== END | disposition home or self-care (01) ==
LOC: LABSPEC 10:31
PROVIDERS: PCP Internal Medicine; Referring Provider Nurse Practitioner Adult Health; Visit Provider Nurse Practitioner Adult Health
DX: R10.13 Epigastric pain (principal); R19.7 Diarrhea, unspecified; R68.81 Early satiety; K58.9 Irritable bowel syndrome, unspecified
CPT/HCPCS: 82653; 82705; 83630; 83993; 87177; 87209; 87329; 87493; 87506

== ENCOUNTER → 2021-11-17 | Outpatient (CLI) | payer MEDICARE, MEDICAID, SELFPAY ==
--- NOTE | 2021-11-17 09:09 | US_ITS ---
STUDY: ABDOMINAL ULTRASOUND - ELASTOGRAPHY REASON FOR VISIT: Female, 46 years old. Hepatomegaly. TECHNIQUE: Liver stiffness measurements were obtained on a [employer] RS 85 ultrasound machine using a CA 1-7 probe following the SRU guidelines. 3 measurements were obtained using a 2-D-SWE method. The IQR/M was 20 % suggesting a quality data set. TECHNICAL QUALITY: Limited. Examination limited due to obesity. COMPARISON: Comparison is made with prior sonogram done earlier today. FINDINGS: Liver: Hepatomegaly and diffuse fatty infiltration of the liver. Median liver stiffness measured 8.6 kPa. US/Elastography Parenchyma/Organ IMPRESSION: Liver stiffness measures 8.7 kPa compatible with F2-F3 (Mild to moderate liver fibrosis) Metavir score. Electronically Signed: Michael Jacome MD at 10:38 EDT ,
--- NOTE | 2021-11-17 09:09 | US_ITS ---
STUDY: ABDOMINAL ULTRASOUND - RIGHT UPPER QUADRANT REASON FOR VISIT: Female, 46 years old . Hepatomegaly. TECHNIQUE: Ultrasound evaluation of the right upper quadrant was performed with real-time and static smith-scale imaging. TECHNICAL QUALITY: Limited. Examination limited due to obesity. COMPARISON: Comparison is made with prior study dated 06/28/2019. FINDINGS: Liver: The liver is enlarged and measures 22.3 cm. There is increased echogenicity consistent with fatty infiltration. The bile ducts are within normal limits. There is hepatic color flow. The direction of portal flow is hepatopetal. There is no demonstrated mass lesion. Gallbladder: The patient is status post cholecystectomy. Common Bile Duct (C.B.D.): The common bile duct measures 6 mm. Pancreas: Normal size of the head, body and tail of the pancreas. There is normal echogenicity of the pancreas. There is no demonstrated pancreatic mass or cyst. Right Kidney: Normal size of the right kidney. The right kidney measures 11.7 cm x 4.7cm x 4.9 cm. Normal renal cortex. The right cortex measures 1.6 cm. There is no demonstrated renal mass or cyst. There is no right hydronephrosis. US/Abdomen Limited IMPRESSION: Hepatomegaly. Diffuse fatty infiltration of the liver. Electronically Signed: Michael Jacome MD at 10:21 EDT ,
== END | disposition home or self-care (01) ==
PROVIDERS: PCP Internal Medicine; Referring Provider Nurse Practitioner Adult Health; Visit Provider Nurse Practitioner Adult Health
DX: K76.0 Fatty (change of) liver, not elsewhere classified (principal); R93.9 Diagnostic imaging inconclusive due to excess body fat of patient; R16.0 Hepatomegaly, not elsewhere classified
CPT/HCPCS: 76705; 76981

== ENCOUNTER → 2021-11-21 | Outpatient (CLI) | payer MEDICARE, MEDICAID, SELFPAY ==
--- NOTE | 2021-11-21 12:55 | RAD_ITS ---
STUDY: X-RAY - ABDOMEN/PELVIS REASON FOR EXAM: Female, 46 years old. LOW BACK PAIN, HX OF KIDNEY STONES, LEFT SIDE TECHNIQUE: Single AP view of the abdomen / pelvis. COMPARISON: None. FINDINGS: Normal visualized lung bases. There is an abundance of fecal material throughout the colon. A 2 mm rounded calcification is seen in the left hemipelvis. This most likely represents a small phlebolith although a tiny distal left ureteral calculus cannot be excluded. Normal soft tissue structures. Normal visualized osseous structures. RAD/Abdomen Single View IMPRESSION: Large amount of fecal material is seen in the colon. Tiny calcification in the left hemipelvis suggestive of a phlebolith although a tiny calculus in the distal left ureter cannot be excluded. Electronically Signed: Michael Jacome MD at 13:25 EDT ,
--- NOTE | 2021-11-21 12:55 | RAD_ITS ---
STUDY: X-RAY - LUMBAR SPINE REASON FOR EXAM: Female, 46 years old. PAIN TECHNIQUE: 5 view(s) of the lumbar spine were obtained. COMPARISON: Comparison is made with prior study dated 11/23/2020. FINDINGS: Normal lumbar lordosis. There is no substantial scoliosis. There is a normal alignment of the vertebrae. Spondylosis and disc space narrowing at the T12-L1 and L1-L2 levels. The soft tissue structures are unremarkable. RAD/L/S Spine Min 4 Views IMPRESSION: Degenerative changes of the spine, as detailed above. Stable examination. Electronically Signed: Michael Jacome MD at 13:27 EDT ,
== END | disposition home or self-care (01) ==
LOC: RAD 12:53
PROVIDERS: PCP Internal Medicine
DX: R31.29 Other microscopic hematuria (principal); M54.59 Other low back pain
CPT/HCPCS: 72110; 74018

== ENCOUNTER → 2021-12-06 | Outpatient (CLI) | payer MEDICARE, MEDICAID, SELFPAY ==
--- NOTE | 2021-12-06 08:48 | NM_ITS ---
CLINICAL: 46 year old female with history of abdominal pain and nausea. SEMI-SOLID PHASE 99m Tc SULFUR COLLOID GASTRIC EMPTYING STUDY COMPARISON: None available FINDINGS: The patient was administered 1.1 mCi of 99m Tc sulfur colloid mixed with oatmeal and consumed per os. Image acquisitions in the anterior projection were obtained for 60 minutes. There is prompt visualization of the stomach. There is no gastroesophageal reflux identified. The T ? emptying was calculated to be 22.17 minutes, (Normal: 12-56 minutes). NM/Gastric Emptying Study IMPRESSION: 1. NORMAL 99m Tc sulfur colloid semi-solid phase (oatmeal) gastric emptying imaging examination. A. There is normal and preserved semi-solid phase gastric emptying compared to normal controls. (Marlene et al, J Nucl Med Tech 38: 186, 2010). Electronically Signed: Yuri Gill, at 11:14 EDT ,
== END | disposition home or self-care (01) ==
LOC: NM 08:47
PROVIDERS: PCP Internal Medicine; Referring Provider Nurse Practitioner Adult Health; Visit Provider Nurse Practitioner Adult Health
DX: R68.81 Early satiety (principal); R10.13 Epigastric pain
CPT/HCPCS: 78264; A9541

== ENCOUNTER 2021-12-13 06:44 | Day surgery (SDC) | payer MEDICARE, MEDICAID, SELFPAY ==
[2021-12-13] VITALS (8 sets, daily range): BP systolic 127–152; BP diastolic 85–97; PULSE 82–96; RESP 16–18; TEMP 36.8–36.9; O2SAT 97–99; BMI 52.4
[2021-12-13] MEDS: Lactated Ringers 1,000 ML 15 ML IV (07:24)
--- NOTE | 2021-12-13 08:00 | IMM_PTH ---
PATIENT: RAKESH HEARN LOC: EN U#:[id number] AGE/SX: 46/F ROOM: RE12/13/[address]: Dr. Ron Horton DO : 1975 BED: DIS: 12/13/2021 SPEC #: [id number] RECD: 12/13/21 12:47 STATUS: ARIADNA REQ #: [id number] MITCHELL: 12/13/21 08:[address]: Ron Horton DEPT: IMMUNOHISTOCHEMISTRY RECD BY: Ritika Olmos ENTERED: 12/13/21 12:47 SP TYPE: IMMUNO OTHR DR: Dr. Ezequiel Lepe MD Tissues: B - Stomach, NOS C - Esophagus, NOS Procedures: H Pylori (initial) P53 (initial) KI-67 (add) PHYSICIAN & INSTITUTION [place] [id number] SPECIMEN INFORMATION: Tissue Source: B ? Gastric body biopsy, C ? Distal esophagus biopsy Clinical Info: Diarrhea, early satiety, epigastric pain Specimen Number: [id number] B & C CPT code: 22611 x2, 41266 METHODOLOGY: Deparaffinized sections of prefer/formalin-fixed tissue or PAP/DQ stained slides are incubated with monoclonal/polyclonal antibodies/oligonucleotide probes. Localization is made via biotin free immunoperoxidase method. Appropriate controls are performed and reacted as expected. Results on target cell population are indicated in the following table: RESULTS: ANTIBODY / CLONE RESULT Block B H Pylori (polyclonal) negative Block C P53 (DO-7) negative Ki-67 (30-9) positive, very low These tests were developed and their performance characteristics determined by [facility]. They may not have been cleared or approved by the U.S. Food and Drug Administration. The FDA has determined that such clearance or approval is not necessary. The above immunohistochemical/dualISH markers are ordered and reviewed by the Pathologist. INTERPRETATION: B. Gastric body, biopsy: Negative for Helicobacter pylori organisms. C. Distal esophagus, biopsy: Negative for dysplasia. SJ:roxanne 12/15/2021
--- NOTE | 2021-12-13 08:00 | COLBX_PTH ---
PATIENT: RAKESH HEARN LOC: EN U#:[id number] AGE/SX: 46/F ROOM: RE12/13/[address]: Dr. Ron Horton DO : 1975 BED: DIS: 12/13/2021 SPEC #: [id number] RECD: 12/13/21 10:48 STATUS: ARIADNA RECorina #: [id number] MITCHELL: 12/13/21 08:[address]: Ron Horton DEPT: SURGICAL PATHOLOGY RECD BY: Darvin Stratton ENTERED: 12/13/21 11:45 SP TYPE: COLON BX OTHR DR: Dr. Ezequiel Lepe MD Tissues: A - Duodenum, NOS B - Gastric mucous membrane C - Esophagus, NOS D - Ileum, NOS E - COLON BIOPSY F - SPLENIC FLEXURE G - Sigmoid colon biopsy H - Rectum, NOS Procedures: Special Stain Group II Surgery Specimen Level IV Alcian Blue/PAS (control) HEADER OPERATION: Colonoscopy with biopsies and removal of polyps, EGD with biopsy PRE-OP DIAGNOSIS: Diarrhea, early satiety, epigastric pain TISSUE SUBMITTED: A ? Duodenum biopsy, B ? Gastric body biopsy, C ? Distal esophagus biopsy, D ? Terminal ileum biopsy, E ? Random colon biopsy, F ? Splenic flexure polyp, G ? Sigmoid polyp, H ? Rectal polyp MICROSCOPIC DIAGNOSIS A. Duodenum, biopsy: Fragments of duodenal mucosa, no pathologic diagnosis. B. Gastric body, biopsy: Mild gastritis. See microscopic description and comment. C. 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 Chronic inflammation. Negative for dysplasia. See comment. D. Terminal ileum, biopsy: Fragments of small intestinal mucosa, no pathologic diagnosis. E. Colon, random biopsy: Fragments of colonic mucosa, no pathologic diagnosis. F. Splenic flexure polyp, biopsy: Fragments of hyperplastic polyp. G. Sigmoid polyp, biopsy: Fragments of hyperplastic polyp. H. Rectal polyp, biopsy: Fragments of tubular adenoma. SJ:roxanne 12/14/2021 COMMENT B. The results of immunohistochemistry for Helicobacter pylori will be reported separately ([id number]). C. Alcian blue/PAS stain with matched control is used in the evaluation of the specimen. Immunohistochemistry ([id number]) for P53 and Ki-67 will be performed and results will be reported separately. MICROSCOPIC DESCRIPTION Slides are reviewed. B. The specimen shows fragments of gastric mucosa with chronic inflammatory cell infiltrates in the lamina propria consisting of lymphocytes and plasma cells, consistent with mild chronic gastritis. GROSS DESCRIPTION A - Received in fixative is one container labeled with the patient's name and designated duodenum biopsy. The specimen consists of two irregular fragments of light buckner soft tissue that in aggregate measure 0.6 x 0.3 x 0.1 cm. The specimen is totally submitted in one cassette. B - Received in fixative is one container labeled with the patient's name and designated gastric body biopsy. The specimen consists of multiple irregular fragments of light buckner soft tissue that in aggregate measure 1.2 x 0.5 x 0.1 cm. The specimen is totally submitted in one cassette. C - Received in fixative is one container labeled with the patient's name and designated distal esophagus biopsy. The specimen consists of multiple irregular fragments of light buckner soft tissue that in aggregate measure 1 x 0.3 x 0.1 cm. The specimen is totally submitted in one cassette. D - Received in fixative is one container labeled with the patient's name and designated terminal ileum biopsy. The specimen consists of multiple irregular fragments of light buckner soft tissue that in aggregate measure 1 x 0.3 x 0.1 cm. The specimen is totally submitted in one cassette. E - Received in fixative is one container labeled with the patient's name and designated random colon biopsy. The specimen consists of multiple irregular fragments of light buckner soft tissue that in aggregate measure 2 x 0.5 x 0.1 cm. The specimen is totally submitted in one cassette. F - Received in fixative is one container labeled with the patient's name and designated splenic flexure polyp. The specimen consists of two buckner-pink polyps measuring 0.5 x 0.6 x 0.3 cm and 0.5 x 0.5 x 0.3 cm. The entire specimen is submitted in one cassette. G - Received in fixative is one container labeled with the patient's name and designated sigmoid polyp. The specimen consists of three variable sized polyps measuring 0.3 to 1 cm in greatest dimension and in aggregate 1.5 x 0.5 x 0.3 cm. The specimen is totally submitted in one cassette. H - Received in fixative is one container labeled with the patient's name and designated rectal polyp. The specimen consists of multiple fragments of buckner-pink polypoid tissue that in aggregate measure 1.5 x 0.5 x 0.3 cm. The largest polyp measures 0.8 cm in greatest dimension. The specimen is totally submitted in one cassette. / JEREMIE:roxanne 12/13/2021 TC:1 CPT: 05734 x8, 41369
--- NOTE | 2021-12-13 08:04 | HP.PCM_ITS ---
History and Physical Date of Admission: 12/13/21 6 F who presents to the office today for epigastric pain and fullness Stomach feels very full after eating, like it's not emptying, very bloated--this started months ago, and is now getting worse. Getting diarrhea and cramping after eating. When it got to the point of having diarrhea after drinking water, then she went to the ED on 10/21/2021. She had a CT of the abdomen and pelvis with IV contrast which showed stable 16mm right lower lobe nodule, hepatomegaly with diffuse hepatic enlargement, calcifications of the abdominal aorta, multiple colonic diverticula.? She was diagnosed with UTI, culture proven E. coli.? Treated with Macrobid. Gets nausea before and after eating, nothing relieves it, has zofran but that doesn't help, neither does phenergan, even the thought of food can make her queasy. No vomiting, but occas dry heave. Feels like food gets stuck, especially rice. She gets heartburn, feels acid in the esophagus. Usually managed if she takes pantoprazole twice a day. Hx of ulcers many years ago. Epigastric pain after eating, gets worse over the day. Pain can radiate through to the back. Can have a lower back pain when she needs to have BM. She has had diarrhea for several months, watery and foamy and oily. May have some soft semi-formed stools for a few days occasionally. No bright red blood, no black tarry stools. Stools can be dark or yellow.? No unexplained weight loss. Comorbidities include anxiety, depression, asthma, MARGARITA on BiPAP, COPD, GERD, hiatal hernia, smoker, overactive bladder, pulmonary hypertension, morbid obesity ROS Const Constitutional: Positive for fatigue, fever(s) and weakness ENT ENT: No difficulty swallowing Gastro GI: Positive for abdominal pain, bloating, change in bowel habits, constipation, diarrhea, excessive flatus, nausea/dyspepsia and vomiting; No belching, change in stool character, coffee ground emesis, cramping, heartburn, difficulty swallowing, feeling full early, incontinent of stools, Vomiting blood/hematemesis, Blood in stool, loose stools, Black,tarry stools, pain with swallowing or other Musc Musculoskeletal: Positive for joint pain, back pain, joint swelling, muscle weakness, stiffness and restless legs Skin Skin: No yellowing of the eye or itchy eyes Neuro Neurology: Positive for weakness and restless legs Psych Psychiatric: Positive for anxiety and Positive for depression Endo Endocrine: Positive for fatigue Aller/Imm Allergy/Immunologic: No itchy eyes Boyd/Lymp Hematologic/Lymphatic: Positive for easy bruising; No easy bleeding Exam Const General: cooperative, comfortable, no acute distress and well developed Nutritional Appearance: obese Eyes Conjunctivae: conjunctivae normal Sclera: sclerae normal GI Inspection: obesity Palpation: soft, no masses and tender in the epigastrum Neuro Speech: speech normal Gait: normal gait Psych Mood: euthymic mood Affect: normal affect Quality Reporting Tobacco Screening ([facility] 138) Smoking Status: Current every day smoker Assessment and Plan Assessment and Plan (1) Diarrhea: (2) Early satiety: ?Status:?Acute (3) Epigastric pain: ?Status:?Acute (4) Diarrhea: ?Status:?Acute (5) FH: diabetes mellitus: ?Status:?Acute (6) Hepatomegaly: ?Status:?Acute ? ? ? Orders: Orders Amylase 10/26/21 R10.13 - Epigastric pain, R19.7 - Diarrhea, unspecified, R68.81 - Early satiety ? CRP 10/26/21 R10.13 - Epigastric pain, R19.7 - Diarrhea, unspecified, R68.81 - Early satiety ? Thyroid Stim Hormone (TSH) 10/26/21 I10 - Essential (primary) hyper tension, R10.13 - Epigastric pain, R19.7 - Diarrhea, unspecified, R68.81 - Early satiety ? Hemoglobin A1c 10/26/21 E66.01 - Morbid (severe) obesit y due to excess calories, R10.13 - Epigastric pain, R19.7 - Diarrhea, unspecified, R68.81 - Early satiety, Z83.3 - Family history of diabetes mellitus ? Erythrocyte Sed Rate 10/26/21 R10.13 - Epigastric pain, R19.7 - Diarrhea, unspecified, R68.81 - Early satiety ? DELFINO Comprehensive Panel 10/26/21 R10.13 - Epigastric pain, R19.7 - Diarrhea, unspecified, R68.81 - Early satiety ? Calprotectin, Stool 10/26/21 R10.13 - Epigastric pain, R19.7 - Diarrhea, unspecified, R68.81 - Early satiety ? Fecal Fat, Qualitative 10/26/21 R10.13 - Epigastric pain, R19.7 - Diarrhea, unspecified, R68.81 - Early satiety ? Ova and Parasites 8623 10/26/21 K58.9 - Irritable bowel syndrom e without diarrhea, R10.13 - Epigastric pain, R19.7 - Diarrhea, unspecified, R68.81 - Early satiety ? CDIFF (PCR) 10/26/21 R10.13 - Epigastric pain, R19.7 - Diarrhea, unspecified, R68.81 - Early satiety ? ENTERIC PATHOGEN PANEL STOOL 10/26/21 K58.9 - Irritable bowel syndrom e without diarrhea, R10.13 - Epigastric pain, R19.7 - Diarrhea, unspecified, R68.81 - Early satiety ? Stool Lactoferrin/WBC 10/26/21 K58.9 - Irritable bowel syndrom e without diarrhea, R10.13 - Epigastric pain, R19.7 - Diarrhea, unspecified, R68.81 - Early satiety ? Giardia Lamblia, Stool EIA 10/26/21 R10.13 - Epigastric pain, R19.7 - Diarrhea, unspecified, R68.81 - Early satiety ? H. PYLORI STOOL AG 10/26/21 R10.13 - Epigastric pain, R19.7 - Diarrhea, u nspecified, R68.81 - Early satiety ? Pancreatic Elastase, Fecal 10/26/21 R10.13 - Epigastric pain, R19.7 - Diarrhea, unspecified, R68.81 - Early satiety ? C HIV - [facility] 10/26/21 R16.0 - Hepatomegaly, not elsew here classified, R53.83 - Other fatigue ? Prothrombin Time w/INR 10/26/21 R10.9 - Unspecified abdominal p ain, R16.0 - Hepatomegaly, not elsewhere classified ? Anti-Mitochondrial AB 10/26/21 R16.0 - Hepatomegaly, not elsew here classified ? Hepatitis Panel Acute 10/26/21 R16.0 - Hepatomegaly, not elsew here classified, R53.83 - Other fatigue ? Angiotensin Convert Enzyme 10/26/21 R16.0 - Hepatomegaly, not elsew here classified ? ANCA 10/26/21 R16.0 - Hepatomegaly, not elsew here classified ? Anti-Smooth Muscle ABS 10/26/21 R16.0 - Hepatomegaly, not elsew here classified ? Ceruloplasmin 10/26/21 R16.0 - Hepatomegaly, not elsew here classified ? Copper, Serum or Plasma 10/26/21 R16.0 - Hepatomegaly, not elsew here classified ? Haptoglobin 10/26/21 R16.0 - Hepatomegaly, not elsew here classified ? Ammonia 10/26/21 R16.0 - Hepatomegaly, not elsew here classified ? Abdomen Limited 10/26/21 R16.0 - Hepatomegaly, not elsew here classified ? Elastography Parenchyma/Organ 10/26/21 R16.0 - Hepatomegaly, not elsew here classified ? Medications: New metoclopramide HCl ?? administer 30 minutes before meals 5 mg? PO QAC 90 tabs 0RF ? ? Plan 46-year-old female with epigastric pain, early satiety, nausea, bloating, dysphagia, GERD, and diarrhea in the setting of multiple comorbidities.? Differential diagnosis includes esophagitis, Zaman's, esophageal stenosis, malignancy, gastroparesis, peptic ulcer disease, gastritis, pancreas disorder.? We will initiate biochemical work-up, stool studies.? She has had CT abdomen and pelvis already.? We will schedule her for EGD and colonoscopy.? We we will get a gastric emptying study.? We will have her try metoclopramide but hold prior to the gastric emptying study.? Liver ultrasound and elastography.? We will be in touch with results and further recommendations for evaluation and treatment.? She will be scheduled for first available follow-up which is in approximately 6 weeks as well as a 2-week follow-up after her endoscopies. I have re-examined the patient. There are no clinical changes since date of exam.
--- NOTE | 2021-12-13 08:57 | OP.EGD_ITS ---
Patient Name: Odette Burrows Procedure Date: 12/13/2021 7:23 AM Date of : 1975 Age: 46 Procedure: Upper GI endoscopy Indications: Abdominal pain in the right upper quadrant, Functional Dyspepsia, Heartburn, Failure to respond to medical treatment Providers: Ron Horton DO Referring MD: Ron Horton DO Medicines: Monitored Anesthesia Care Patient Profile: This is a 46 year old female. Refer to note in patient chart for documentation of history and physical. Patient has symptoms of chronic abdominal cramping, chronic abdominal distention and chronic epigastric abdominal pain. Complications: No immediate complications. Procedure: Pre-Anesthesia Assessment: - Prior to the procedure, a History and Physical was performed, and patient medications and allergies were reviewed. The risks and benefits of the procedure and the sedation options and risks were discussed with the patient. All questions were answered and informed consent was obtained. Patient identification and proposed procedure were verified by the physician in the pre-procedure area. Mental Status Examination: alert and oriented. Airway Examination: normal oropharyngeal airway and neck mobility. Respiratory Examination: clear to auscultation. CV Examination: normal. Prophylactic Antibiotics: The patient does not require prophylactic antibiotics. Prior Anticoagulants: The patient has taken no previous anticoagulant or antiplatelet agents. ASA Grade Assessment: II - A patient with mild systemic disease. After reviewing the risks and benefits, the patient was deemed in satisfactory condition to undergo the procedure. The anesthesia plan was to use moderate sedation / analgesia (conscious sedation). Immediately prior to administration of medications, the patient was re-assessed for adequacy to receive sedatives. The heart rate, respiratory rate, oxygen saturations, blood pressure, adequacy of pulmonary ventilation, and response to care were monitored throughout the procedure. The physical status of the patient was re-assessed after the procedure. After obtaining informed consent, the endoscope was passed under direct vision. Throughout the procedure, the patient's blood pressure, pulse, and oxygen saturations were monitored continuously. The Colonoscope was introduced through the mouth, and advanced to the second part of duodenum. The upper GI endoscopy was accomplished without difficulty. The patient tolerated the procedure well. Scope In: 8:10:43 AM Scope Out: 8:20:55 AM Total Procedure Duration Time 0 hours 10 minutes 12 seconds Findings: The Z-line was irregular and was found 38 cm from the incisors. Biopsies were taken with a cold forceps for histology. Verification of patient identification for the specimen was done. Estimated blood loss was minimal. Biopsies were taken with a cold forceps for histology. Verification of patient identification for the specimen was done. Estimated blood loss was minimal. Patchy moderately erythematous mucosa without bleeding was found in the gastric body. Biopsies were taken with a cold forceps for histology. Verification of patient identification for the specimen was done. Estimated blood loss was minimal. Patchy mild inflammation characterized by congestion (edema) and erythema was found in the duodenal bulb, in the first portion of the duodenum and in the second portion of the duodenum. Biopsies were taken with a cold forceps for histology. Verification of patient identification for the specimen was done. Estimated blood loss was minimal. Impression: - Z-line irregular, 38 cm from the incisors. Biopsied. - Erythematous mucosa in the gastric body. Biopsied. - Duodenitis. Biopsied. Recommendation: - Discharge patient to home. - Resume previous diet. - Continue present medications. - Await pathology results. - Repeat upper endoscopy in 1 year for surveillance. - Return to GI office. Procedure Code(s): --- Professional --- 55884, Esophagogastroduodenoscopy, flexible, transoral; with biopsy, single or multiple CPT copyright 2017 [employer]. All rights reserved. The codes documented in this report are preliminary and upon manager of product review may be revised to meet current compliance requirements. Ron Horton DO 12/13/2021 8:56:26 AM This report has been signed electronically. Number of Addenda: 1 Note Initiated On: 12/13/2021 7:23 AM Addendum Number: 1 Addendum Date: 02/15/2022 6:34:28 AM MAC was used as sedation for this procedure. Ron Horton DO 02/15/2022 6:34:35 AM This report has been signed electronically.
--- NOTE | 2021-12-13 08:57 | OP.CCLET_ITS ---
02/15/2022 Ezequiel Lepe MD [address] [place] [address] [place] [address] Re : Upper GI endoscopy procedure for Odette Burrows Dear Dr. Lepe This procedure was performed on Monday, December 13, 2021. My impressions and recommendations are as follows: Impressions : - Z-line irregular, 38 cm from the incisors. Biopsied. - Erythematous mucosa in the gastric body. Biopsied. - Duodenitis. Biopsied. Recommendations : - Discharge patient to home. - Resume previous diet. - Continue present medications. - Await pathology results. - Repeat upper endoscopy in 1 year for surveillance. - Return to GI office. My findings are described in the full procedure note, which is enclosed. If I can be of further assistance, please feel free to contact me at . Sincerely, Ron Horton, 12/13/2021 8:56:26 AM This report has been signed electronically.
--- NOTE | 2021-12-13 09:02 | OP.COLON_ITS ---
Patient Name: Odette Burrows Procedure Date: 12/13/2021 8:21 AM Date of : 1975 Age: 46 Procedure: Colonoscopy Indications: Chronic diarrhea, Clinically significant diarrhea of unexplained origin Providers: Ron Horton DO Referring MD: Ron Horton DO Medicines: Monitored Anesthesia Care Patient Profile: This is a 46 year old female. Refer to note in patient chart for documentation of history and physical. Patient has symptoms of chronic abdominal cramping, chronic abdominal distention and chronic epigastric abdominal pain. Last Colonoscopy: none. The patient's first colonoscopy is today. Complications: No immediate complications. Procedure: Pre-Anesthesia Assessment: - Prior to the procedure, a History and Physical was performed, and patient medications and allergies were reviewed. The risks and benefits of the procedure and the sedation options and risks were discussed with the patient. All questions were answered and informed consent was obtained. Patient identification and proposed procedure were verified by the physician in the pre-procedure area. Mental Status Examination: alert and oriented. Airway Examination: normal oropharyngeal airway and neck mobility. Respiratory Examination: clear to auscultation. CV Examination: normal. Prophylactic Antibiotics: The patient does not require prophylactic antibiotics. Prior Anticoagulants: The patient has taken no previous anticoagulant or antiplatelet agents. ASA Grade Assessment: II - A patient with mild systemic disease. After reviewing the risks and benefits, the patient was deemed in satisfactory condition to undergo the procedure. The anesthesia plan was to use moderate sedation / analgesia (conscious sedation). Immediately prior to administration of medications, the patient was re-assessed for adequacy to receive sedatives. The heart rate, respiratory rate, oxygen saturations, blood pressure, adequacy of pulmonary ventilation, and response to care were monitored throughout the procedure. The physical status of the patient was re-assessed after the procedure. After I obtained informed consent, the scope was passed under direct vision. Throughout the procedure, the patient's blood pressure, pulse, and oxygen saturations were monitored continuously. The Colonoscope was introduced through the anus and advanced to the terminal ileum. The colonoscopy was performed without difficulty. The patient tolerated the procedure well. The quality of the bowel preparation was good. Scope In: 8:23:46 AM Scope Withdrawal Time 0 hours 13 minutes 51 seconds Scope Out: 8:47:59 AM Total Procedure Duration Time 0 hours 24 minutes 13 seconds Findings: Three sessile polyps were found in the rectum, sigmoid colon and splenic flexure. The polyps were 1 to 2 mm in size. These polyps were removed with a hot snare. Resection and retrieval were complete. Verification of patient identification for the specimen was done. Estimated blood loss was minimal. A few small and large-mouthed diverticula were found in the recto-sigmoid colon and sigmoid colon. An area of mildly congested mucosa was found in the rectum, in the sigmoid colon, in the descending colon and in the ascending colon. Biopsies were taken with a cold forceps for histology. Estimated blood loss: none. The terminal ileum appeared normal. Biopsies were taken with a cold forceps for histology. Verification of patient identification for the specimen was done. Estimated blood loss was minimal. Impression: - Three 1 to 2 mm polyps in the rectum, in the sigmoid colon and at the splenic flexure, removed with a hot snare. Resected and retrieved. - Diverticulosis in the recto-sigmoid colon and in the sigmoid colon. - Congested mucosa in the rectum, in the sigmoid colon, in the descending colon and in the ascending colon. Biopsied. - The examined portion of the ileum was normal. Biopsied. Recommendation: - Discharge patient to home. - Resume previous diet. - Continue present medications. - Await pathology results. - Repeat colonoscopy in 2 years for surveillance. Procedure Code(s): --- Professional --- 25616, Colonoscopy, flexible; with removal of tumor(s), polyp(s), or other lesion(s) by snare technique 31251, 59, Colonoscopy, flexible; with biopsy, single or multiple CPT copyright 2017 [employer]. All rights reserved. The codes documented in this report are preliminary and upon ux research associate review may be revised to meet current compliance requirements. Ron Horton DO 12/13/2021 9:02:05 AM This report has been signed electronically. Number of Addenda: 1 Note Initiated On: 12/13/2021 8:21 AM Addendum Number: 1 Addendum Date: 02/15/2022 6:34:44 AM MAC was used as sedation for this procedure. Ron Horton DO 02/15/2022 6:34:48 AM This report has been signed electronically.
--- NOTE | 2021-12-13 09:03 | OP.CCLET_ITS ---
02/15/2022 Ezequiel Lepe MD [address] [place] [address] [place] [address] Re : Colonoscopy procedure for Odette Burrows Dear Dr. Lepe This procedure was performed on Monday, December 13, 2021. My impressions and recommendations are as follows: Impressions : - Three 1 to 2 mm polyps in the rectum, in the sigmoid colon and at the splenic flexure, removed with a hot snare. Resected and retrieved. - Diverticulosis in the recto-sigmoid colon and in the sigmoid colon. - Congested mucosa in the rectum, in the sigmoid colon, in the descending colon and in the ascending colon. Biopsied. - The examined portion of the ileum was normal. Biopsied. Recommendations : - Discharge patient to home. - Resume previous diet. - Continue present medications. - Await pathology results. - Repeat colonoscopy in 2 years for surveillance. My findings are described in the full procedure note, which is enclosed. If I can be of further assistance, please feel free to contact me at . Sincerely, Ron Horton, 12/13/2021 9:02:05 AM This report has been signed electronically.
[2021-12-13] MEDS: Morphine 4 MG/ML Syringe IV (09:10)
== END 2021-12-13 09:36 | disposition home or self-care (01) ==
LOC: EN 06:45 → AC 06:46
PROVIDERS: PCP Internal Medicine; Referring Provider Internal Medicine Gastroenterology; Visit Provider Internal Medicine Gastroenterology
PROC: 0DJD8ZZ Inspection of Lower Intestinal Tract, Via Natural or Artificial Opening Endoscopic (ICD-10-PCS; CPT 45378; principal; 2021-12-13 07:55)
DX: D12.8 Benign neoplasm of rectum (principal); K29.70 Gastritis, unspecified, without bleeding; K29.80 Duodenitis without bleeding; K63.5 Polyp of colon; K44.9 Diaphragmatic hernia without obstruction or gangrene; K21.00 Gastro-esophageal reflux disease with esophagitis, without bleeding; K57.30 Diverticulosis of large intestine without perforation or abscess without bleeding; R68.81 Early satiety; R16.0 Hepatomegaly, not elsewhere classified; J44.9 Chronic obstructive pulmonary disease, unspecified; I27.20 Pulmonary hypertension, unspecified; J45.909 Unspecified asthma, uncomplicated; E66.01 Morbid (severe) obesity due to excess calories; N32.81 Overactive bladder; G47.33 Obstructive sleep apnea (adult) (pediatric); F32.A Depression, unspecified; F41.9 Anxiety disorder, unspecified; F17.200 Nicotine dependence, unspecified, uncomplicated
CPT/HCPCS: 45385; 45380; 43239; 88305; 88313; 88341; 88342; J7120; J2405

== ENCOUNTER 2022-01-07 17:10 | Emergency (ER) | payer MEDICARE, MEDICAID, SELFPAY ==
[2022-01-07 17:12] VITALS: BP 210/103; PULSE 122; RESP 26; TEMP 37; O2SAT 95; BMI 50.9
[2022-01-07 17:15] VITALS: BP 159/105; PULSE 102; RESP 20; TEMP 37; O2SAT 94
--- NOTE | 2022-01-07 17:28 | EKG12_ITS ---
Test Reason : SOB Blood Pressure : / mmHG Vent. Rate : 092 BPM Atrial Rate : 092 BPM P-R Int : 136 ms QRS Dur : 084 ms QT Int : 370 ms P-R-T Axes : 060 051 045 degrees QTc Int : 457 ms Normal sinus rhythm Normal ECG Confirmed by ANGELA FRANCO, NELSON ([id number]), editorial director TIM ANTOINE ([id number]) on 01/09/2022 7:37:41 AM Referred By: PL Confirmed By:NELSON MILLER MD
[2022-01-07 17:30] VITALS: BP 159/105; PULSE 102; RESP 20; O2SAT 94
[2022-01-07 17:31] VITALS: O2SAT 94
--- NOTE | 2022-01-07 17:35 | RAD_ITS ---
STUDY: X-RAY CHEST REASON FOR EXAM: Female, 46 years old. Chest pain TECHNIQUE: Single AP portable view of the chest. COMPARISON: 09/06/2021. FINDINGS: The lungs are clear and expanded. There is no demonstrated pleural abnormality. Normal size heart. Normal mediastinum and jalyn. Normal visualized pulmonary arteries. Normal visualized aortic arch and descending thoracic aorta. Normal visualized thoracic spine. Normal visualized ribs, clavicles, and shoulders. There is no demonstrated abnormality of the visualized soft tissue structures of the upper abdomen. RAD/Chest 1 View (Portable) IMPRESSION: Normal x-ray examination of the chest. Electronically Signed: Dang Nance MD at 18:06 EDT Reading Location ID and State: [id number] / Tel , Service support ,
--- NOTE | 2022-01-07 17:39 | EDS_ITS ---
HPI History of Present Illness Chief Complaint: Shortness of Breath Narrative Narrative: Patient presents with symptoms of nausea and vomiting, stating that she cannot eat or drink anything because she vomits it back up. This has been ongoing for the last 2 weeks. She also feels as if her esophagus is closing. She relates history that she was having problems with her abdomen and chronic abdominal pain and she went and saw the subway car repairer, Dr. Horton, who performed scopes on her 2 weeks ago. Since then she had problems with this. She had Zofran and they wanted to prescribe her more but she states she is not nauseated that she simply vomits afterwards. Additionally, she was called in lidocaine which she states did not help. She presents because she is frustrated because she feels tightening in her chest that is been ongoing for 2 weeks. [facility] Medical History Abdominal pain Abdominal wall abscess Anxiety Anxiety and depression Arthritis Asthma BiPAP (biphasic positive airway pressure) dependence Bladder disease Bronchitis Cancer of left kidney Cervical radiculopathy Chronic back pain Chronic cough Chronic neck and back pain COPD (chronic obstructive pulmonary disease) COPD (chronic obstructive pulmonary disease) Costochondritis Depression Diarrhea Diarrhea Fatigue Fatigue Fatty stools Gastric reflux Gastroenteritis GERD (gastroesophageal reflux disease) H/O emotional problems History of echocardiogram History of edema History of hiatal hernia History of mononucleosis History of renal disease History of stress test History of ulceration HTN (hypertension) Incontinence Intertriginous dermatitis associated with moisture Intestinal ulcer Left ankle pain Lesion of bladder Limb weakness Loose, teeth Lung disease Mild chronic gastritis Nausea and vomiting MARGARITA (obstructive sleep apnea) MARGARITA (obstructive sleep apnea) MARGARITA (obstructive sleep apnea) Overactive bladder Pulmonary hypertension Shortness of breath Shoulder pain Sleep apnea Smoker SOB (shortness of breath) Stress incontinence Stress incontinence UTI (urinary tract infection) Venous insufficiency of both lower extremities Wears glasses Home Medications Handicap Placard #1 ea 11/28/20 [Rx Last Taken Unknown] albuterol sulfate 90 mcg/actuation breath activated powder inhaler 2 inh inhalation Q4H PRN Sob &/Or Wheezing #1 ea 02/23/21 [Rx Last Taken 09/18/21] ursodiol 300 mg capsule 300 mg PO BID NAFLD #180 caps 12/05/21 [Rx Last Taken Unknown] vitamin E (dl, acetate) 180 mg (400 unit) capsule 180 mg PO BID #180 caps 12/05/21 [Rx Last Taken Unknown] hyoscyamine sulfate 0.125 mg tablet 0.125 mg PO BID-QID PRN abdominal cramps #10 tabs 12/12/21 [Rx Last Taken Unknown] sucralfate 100 mg/mL oral suspension 10 ml PO QACHS #1,000 mL 12/18/21 [Rx Last Taken Unknown] doxycycline hyclate 100 mg capsule 100 mg PO BID #28 caps 12/19/21 [Rx Last Taken Unknown] pantoprazole 40 mg tablet,delayed release 40 mg PO BID #180 tabs 12/19/21 [Rx Last Taken Unknown] lidocaine HCl 2 % mucosal solution (Lidocaine Viscous) 10 ml PO TID PRN pain #100 mL 12/29/21 [Rx Last Taken Unknown] Allergy/AdvReac Type Severity Reaction Status Date / Time cefaclor [From Ceclor] Allergy Hives Verified 01/07/22 17:11 ciprofloxacin [From Cipro] Allergy Itching Verified 01/07/22 17:11 erythromycin base Allergy Upset Verified 01/07/22 17:11 [Erythromycin Base] Stomach moxifloxacin HCl Allergy Hives Verified 01/07/22 17:11 [From Avelox] Penicillins Allergy Upset Verified 01/07/22 17:11 Stomach sulfamethoxazole Allergy Unknown Verified 01/07/22 17:11 [From Bactrim] trimethoprim [From Bactrim] Allergy Unknown Verified 01/07/22 17:11 Family History Mother CVA (cerebral vascular accident) Thyroid disorder Ulcer Arthritis Father Diabetes Heart disease Myocardial infarction Arthritis Hypertension High cholesterol Skin cancer Son , age 17 Asthma Large B-cell lymphoma Other Anxiety Melanoma Respiratory disease Surgical History History of ankle surgery History of cystoscopy History of cystoscopy History of esophagogastroduodenoscopy (EGD) (~01/20/20) History of lymph node biopsy History of partial hysterectomy History of sinus surgery History of tonsillectomy Hx of cholecystectomy Hx of cystoscopy Hx of cystoscopy Hx of hysterectomy Hx of nasal septoplasty Hx of prior ablation treatment Hx of tonsillectomy Social History household members: children Smoking Status: Current every day smoker tobacco type: cigarettes Tobacco: How many years used: 25 alcohol intake: never substance use type: does not use what type of physical activity do you participate in: none do you feel safe at home: Yes ROS ROS ED ROS Narrative Constitutional: No fever, no chills. HEENT: No sore throat. No neck pain. No loss of vision. No rhinorrhea. Cardiovascular: Positive chest tightness, feels esophagus is closing, positive chest pain. No palpitations. No pedal edema. Respiratory: No cough, no shortness of breath. Abdominal: Chronic abdominal pain. No nausea. Positive vomiting. Genitourinary: No dysuria. No hematuria. Musculoskeletal: No myalgias. No arthralgias. Neurologic: No headaches. No dizziness. No lightheadedness. Skin: No rash. No change in color. Psychiatric: No depression. No anxiety. EXAM Physical Exam Narrative Exam Narrative: Afebrile. Vital signs noted. HEENT: Normocephalic. Atraumatic. PERRL, EOMI. Neck soft and supple. No point tenderness or step off. Airway patent. No drooling or trismus. Cardiovascular: Positive tachycardia. No murmurs, rubs, or gallops appreciated. Respiratory: No tachypnea. Lungs clear to auscultation bilaterally. Gastrointestinal: Abdomen soft, nontender, with normoactive bowel sounds. No rebound or guarding. Neurological: Awake. Alert. Nonfocal, nonlateralizing. Skin: No rash. Normal color. No pallor. Musculoskeletal: No pedal edema. Full range of motion extremities. Const Vital Signs: 01/07/22 17:12 01/07/22 17:30 01/07/22 17:31 Temperature 98.6 F Temperature Source Temporal Pulse Rate 122 H 102 H Respiratory Rate 26 H 20 H Respiratory Effort Normal Respiratory Depth Normal Respiratory Pattern Normal Blood Pressure 210/103 H 159/105 H Blood Pressure Mean 138 123 Pulse Ox 95 94 Oxygen Delivery Method Room Air Room Air Room Air 01/07/22 17:15 01/07/22 18:47 Temperature 98.6 F Temperature Source Temporal Pulse Rate 102 H 93 Respiratory Rate 20 H 17 Respiratory Effort Respiratory Depth Respiratory Pattern Blood Pressure 159/105 H Blood Pressure Mean 123 Pulse Ox 94 Oxygen Delivery Method Room Air MDM MDM MDM Narrative Medical decision making narrative: I reviewed the patient's endoscopy notes from earlier in the month on 12/13/2021. She did have gastritis and is taking a PPI. She also has evidence of Zaman's esophagus. I will check a CBC, CMP, and lipase along with troponin and a chest x-ray. EKG was obtained which was interpreted by myself which demonstrates normal sinus rhythm at 92 bpm without ectopy or acute ST changes. I do feel that there may be some anxiety component to this as this has been ongoing for 2 to 3 weeks. WBC count slightly elevated 12.9 which I think is nonspecific. Hemoglobin 14.1 with hematocrit of 42.8. Normal platelet count of 321. Chloride slightly elevated 108 but normal sodium of 140 with potassium 4.0. BUN of 13 with creatinine 0.76, no evidence of dehydration. Glucose normal at 165 with a normal anion gap of 7. AST and ALT are normal. High-sensitivity troponin 5. This is a greater than 6-hour troponin. Lipase normal at 118. Chest x-ray in terpreted by myself shows no acute process. She was given a GI cocktail which she was able to tolerate, however she states she still feels as if she is choking. She was reassured. I feel she can be discharged safely home with follow-up to her subway car repairer. She states that they have tried Carafate and in review of her chart, she had taken Reglan previously, she had normal gastric emptying study. She did have gastritis and Zaman's esophagus which was being treated. She will continue her PPI. Once again she was reassured. I did offer her Ativan for her globus hystericus, but she declined stating that she drove herself here. At this point in time, she will be discharged in stable condition. Lab Data Attestation: I reviewed the patient's lab results. Labs: Laboratory Results - last 24 hr 01/07/22 01/07/22 01/07/22 17:35 17:35 17:35 WBC 12.9 H RBC 4.86 Hgb 14.1 Hct 42.8 MCV 88.1 MCH 29.0 MCHC 32.9 RDW Std Deviation 42.5 RDW Coeff of Saeid 13.2 Plt Count 321 MPV 10.3 Immature Gran % (Auto) 0.500 Neut % (Auto) 60.8 Lymph % (Auto) 33.0 Hill % (Auto) 4.5 Eos % (Auto) 0.9 Baso % (Auto) 0.3 Absolute Neuts (auto) 7.8 H Absolute Lymphs (auto) 4.26 Nucleated RBC % 0 Sodium 140 Potassium 4.0 Chloride 108 H Carbon Dioxide 25.0 Anion Gap 7 BUN 13 Creatinine 0.76 Estim Creat Clear Calc 81.46 Est GFR (MDRD) Af Amer 104 Est GFR (MDRD) Non-Af 86 BUN/Creatinine Ratio 17.1 Glucose 165 H Calcium 9.0 Total Bilirubin 0.20 AST 20 ALT 41 Alkaline Phosphatase 128 H Troponin I High Sens 5 Total Protein 7.2 Albumin 3.4 Globulin 3.8 Albumin/Globulin Ratio 0.9 Lipase 118 Radiography Diagnostic Testing: Clinical Impression(s) from Imaging Studies Chest X-Ray 01/07/22 17:35 IMPRESSION: Normal x-ray examination of the chest. Electronically Signed: Dang Nance MD at 18:06 EDT Reading Location ID and State: [id number] / Tel , Service support , Discharge Plan Triage Chief Complaint: Shortness of Breath ED Provider: Artie Nick Dx/Rx/DC Orders Clinical Impression: Vomiting, GERD (gastroesophageal reflux disease), Choking sensation, Globus hystericus, Gastritis Instructions: ED GERD (Adult), ED Gastritis (Adult), ED Vomiting (Adult), ED Symptoms With Uncertain Cause Prescriptions: No Action (DME) Handicap Placard See Rx Instructions .ROUTE .MEDSUPPLY Qty: 1 0RF Rx Instructions: As directed, length of time 3 years albuterol sulfate 90 mcg/actuation aerosol powdr breath activated 2 inh INHALATION Q4H PRN (Reason: Sob &/Or Wheezing) Qty: 1 0RF doxycycline hyclate 100 mg capsule 100 mg PO BID Qty: 28 0RF pantoprazole 40 mg tablet,delayed release (DR/EC) 40 mg PO BID Qty: 180 1RF ursodiol 300 mg capsule 300 mg PO BID Qty: 180 3RF vitamin E (dl, acetate) 180 mg (400 unit) capsule 180 mg PO BID Qty: 180 3RF hyoscyamine sulfate 0.125 mg tablet 0.125 mg PO BID-QID PRN (Reason: abdominal cramps) Qty: 10 0RF sucralfate 100 mg/mL suspension 10 ml PO QACHS Qty: 1000 0RF lidocaine HCl [Lidocaine Viscous] 2 % solution 10 ml PO TID PRN (Reason: pain) Qty: 100 0RF Primary Care Provider: Ezequiel Lepe Referrals: Ezequiel Lepe MD [Primary Care Provider] - Ron Horton DO [Med Staff - Active Staff] - 1 Day Disposition Disposition: Home, Self Care
[2022-01-07 17:43] LABS: Absolute Lymphocyte Count 4.26 X10^3/uL (0.83-4.51); Absolute Neutrophil Count 7.8 X10^3/uL (2.0-7.7); Basophil# 0.04 X10^3/uL; Basophil% 0.3 % (0-1); Eosinophil# 0.12 X10^3/uL; Eosinophils% 0.9 % (0-5); Hematocrit 42.8 % (37-47); Hemoglobin 14.1 g/dL (12.0-15.0); Lymphocyte # 4.26 X10^3/ul (0.83-4.51); Mean Corp Hgb Conc 32.9 g/dL (32-36); Mean Corpuscular Volume 88.1 fL (81-99); Mean Platelet Vol. 10.3 fl (6.2-12.0); Monocyte# 0.58 X10^3/uL; Monocyte% 4.5 % (0-10); NRBC Flagged by Analyzer 0 % (0-5); Neutrophil # 7.83 X10^3/uL (2.7-7.7); Neutrophil % 60.8 % (47-70); Platelet Count 321 K/mm3 (150-450); RBC Distribution Width CV 13.2 % (11.6-14.6); RBC Distribution Width SD 42.5 fl (35.1-43.9); Red Blood Count 4.86 M/mm3 (4.2-5.4); White Blood Count 12.9 K/mm3 (4.4-11.0)
[2022-01-07] MEDS: 0.9% Normal Saline 1,000 ML 1000 ML IV (17:54)
[2022-01-07] MEDS: Mag Hydrox/Al Hydrox/Simeth 30 ML UDC PO (17:55)
[2022-01-07 18:06] LABS: ALB/GLOB Ratio 0.9 RATIO (0.9-2.4); AST(SGOT) 20 U/L (15-37); Alanine Aminotransfer ALT/SGPT 41 U/L (13-56); Albumin, Serum 3.4 g/dL (3.2-5.0); Alkaline Phosphatase 128 U/L (45-117); Anion Gap 7 (5-15); BUN 13 mg/dL (7-18); BUN/Creat Ratio 17.1 RATIO (10-20); Chloride 108 mmol/L (98-107); Creatinine, Serum 0.76 mg/dL (0.55-1.02); EST Glomerular Filtration Rate 86 mL/min (>60); Est Glom Filt Rate - Afr Amer 104 mL/min (>60); Estimated Creatinine Clearance 81.46 ml/min; Globulin 3.8 g/dL (2.2-4.2); Glucose 165 mg/dL (74-106); Lipase 118 U/L (73-393); Protein, Total 7.2 g/dL (6.4-8.2); Sodium Level 140 mmol/L (136-145)
[2022-01-07 18:25] LABS: Troponin-I HS 5 pg/mL (3.0-54.0)
[2022-01-07 18:47] VITALS: PULSE 93; RESP 17
== END 2022-01-07 19:26 | disposition home or self-care (01) ==
PROVIDERS: Emergency Provider Emergency Medicine; PCP Internal Medicine; Visit Provider Emergency Medicine
DX: K29.70 Gastritis, unspecified, without bleeding (principal); J44.9 Chronic obstructive pulmonary disease, unspecified; F45.8 Other somatoform disorders; K21.9 Gastro-esophageal reflux disease without esophagitis; R09.89 Other specified symptoms and signs involving the circulatory and respiratory systems; I10 Essential (primary) hypertension; E87.8 Other disorders of electrolyte and fluid balance, not elsewhere classified; M54.9 Dorsalgia, unspecified; G89.29 Other chronic pain; M19.90 Unspecified osteoarthritis, unspecified site; G47.33 Obstructive sleep apnea (adult) (pediatric); F32.A Depression, unspecified; F41.9 Anxiety disorder, unspecified; F17.210 Nicotine dependence, cigarettes, uncomplicated; Z79.899 Other long term (current) drug therapy
CPT/HCPCS: 71045; 80053; 83690; 84484; 85025; 93005; 96360; 96361; 99284; J7030; A4216

== ENCOUNTER → 2022-01-12 | Outpatient (CLI) | payer MEDICARE, MEDICAID, SELFPAY ==
--- NOTE | 2022-01-12 13:32 | RAD_ITS ---
STUDY: X-RAY - SOFT TISSUE NECK REASON FOR EXAM: Female, 46 years old. dysphagia TECHNIQUE: 2 view(s) of the neck were obtained. COMPARISON: None. FINDINGS: Normal visualized nasopharynx, oropharynx, hypopharynx. Normal epiglottis. Normal visualized subglottic tracheal air column. Normal prevertebral soft tissue structures. C6-7 moderate anterior osteophyte formation and loss of disc space height. The soft tissue structures are unremarkable. RAD/Neck for Soft Tissue IMPRESSION: Soft tissues of neck normal. Moderate degenerative disc disease C6-7. Electronically Signed: Juan Daniel Aguilar MD, AMY at 16:51 EDT ,
== END | disposition home or self-care (01) ==
LOC: RAD 13:30
PROVIDERS: PCP Internal Medicine; Referring Provider Nurse Practitioner Adult Health; Visit Provider Nurse Practitioner Adult Health
DX: R13.10 Dysphagia, unspecified (principal)
CPT/HCPCS: 70360

== ENCOUNTER 2022-01-18 09:16 | Day surgery (SDC) | payer MEDICARE, MEDICAID, SELFPAY ==
[2022-01-18] VITALS (9 sets, daily range): BP systolic 120–146; BP diastolic 72–106; PULSE 78–88; RESP 16–18; TEMP 36.2–37.4; O2SAT 95–98; BMI 53.5
[2022-01-18] MEDS: Lactated Ringers 1,000 ML 15 ML IV (10:00)
--- NOTE | 2022-01-18 10:30 | DCINST_ITS ---
Discharge Instructions Diet Discharge Diet: No restrictions Activity Discharge Activity: Return to Normal Activity May resume sexual activity in: No Restrictions Dressing / Incision Call your doctor if you observe: Fever of 101 or Higher, Inability to urinate and Inability to have a bowel movement Follow Up Care Please Follow Up With: Luisa Mendez MD When: In the office next week. Test Results: Test results from this visit will be discussed in further detail at your follow- up appointment, if applicable. Discharge Plan Admission Attending Provider: Luisa Mendez Primary Care Provider: Ezequiel Lepe Discharge Orders/Prescriptions Prescriptions: New nitrofurantoin monohyd/m-cryst [Macrobid] 100 mg capsule 100 mg PO BID Qty: 6 0RF Rx Instructions: must administer with a meal/food Continued (DME) Handicap Placard See Rx Instructions .ROUTE .MEDSUPPLY Qty: 1 0RF Rx Instructions: As directed, length of time 3 years albuterol sulfate 90 mcg/actuation aerosol powdr breath activated 2 inh INHALATION Q4H PRN (Reason: Sob &/Or Wheezing) Qty: 1 0RF pantoprazole 40 mg tablet,delayed release (DR/EC) 40 mg PO BID Qty: 180 1RF prednisone 20 mg tablet 20 mg PO DAILY Qty: 7 0RF ursodiol 300 mg capsule 300 mg PO BID Qty: 180 3RF vitamin E (dl, acetate) 180 mg (400 unit) capsule 180 mg PO BID Qty: 180 3RF sucralfate 100 mg/mL suspension 10 ml PO QACHS Qty: 1000 0RF Referrals / Follow Up: Ezequiel Lepe MD [Primary Care Provider] - Disposition Disposition (needs filled in before D/C Order can be placed): Home, Self Care
--- NOTE | 2022-01-18 10:33 | PCM.OPRPT ---
Report of Operation Date of Procedure: 01/18/22 Pre-Operative Diagnosis: Overactive bladder, nocturia, urge incontinence Post-Operative Diagnosis: Same Surgery/Procedure Performed:: Cystoscopy, Botox 100 units injection Surgeon: Luisa Mendez Type of Anesthesia: MAC Description of Procedure: The patient is a 46-year-old female with refractory overactive bladder, nocturia and urge incontinence who has had successful treatment with Botox and has had recurrence of her symptoms. She now presents for repeat treatment. Informed consent was obtained. Her preoperative culture was negative. The patient was taken to the operating room and placed on the operating room table. Anesthesia monitored the head, neck, airway, IV access and vital signs throughout the case. Once anesthesia was appropriate ministered, the patient was placed into dorsal lithotomy position was prepped and draped in usual sterile fashion. The cystoscope was inserted through the urethra under direct visualization into the urinary bladder. The bladder mucosa and the urethral mucosa were found to be within normal limits. Using the cystoscopic needle, a total of 20 injection sites were selected and 0.5 cc was injected into each site. The patient's bladder was then emptied and the cystoscope was removed. The patient was awakened and taken to the recovery room in good condition. There were no complications during this procedure. Grafts/Implants Used: None Complications None Admit VTE Documentation VTE Present on Admission: Yes VTE Mechan Device Prophylaxis: SCD's VTE Pharm Prophylaxis ordered?: No Reason prophylaxis not ordered:: Treatment Not Indicated
[2022-01-18] MEDS: Botulinum Toxin A 100 Units Vial IJ (10:55)
[2022-01-18] MEDS: 0.9% Normal Saline (Pres. free 10 ML Vial (10:55)
[2022-01-18] MEDS: Phenazopyridine 95 MG Tablet 190 MG PO (11:23)
--- NOTE | 2022-01-18 11:55 | DCINST_ITS ---
Discharge Instructions Diet Discharge Diet: No restrictions Activity May resume sexual activity in: No Restrictions Dressing / Incision Call your doctor if you observe: Fever of 101 or Higher, Inability to urinate and Inability to have a bowel movement Follow Up Care Please Follow Up With: Luisa Mendez MD Test Results: Test results from this visit will be discussed in further detail at your follow- up appointment, if applicable. Discharge Plan Admission Attending Provider: Luisa Mendez Primary Care Provider: Ezequiel Lepe Discharge Orders/Prescriptions Prescriptions: New nitrofurantoin monohyd/m-cryst [Macrobid] 100 mg capsule 100 mg PO BID Qty: 6 0RF Rx Instructions: must administer with a meal/food oxycodone-acetaminophen [oxycodone-acetaminophen] 5-325 mg tablet 2 tab PO Q8H PRN PRN (Reason: Pain) 3 Days Qty: 10 0RF Continued (DME) Handicap Placard See Rx Instructions .ROUTE .MEDSUPPLY Qty: 1 0RF Rx Instructions: As directed, length of time 3 years albuterol sulfate 90 mcg/actuation aerosol powdr breath activated 2 inh INHALATION Q4H PRN (Reason: Sob &/Or Wheezing) Qty: 1 0RF pantoprazole 40 mg tablet,delayed release (DR/EC) 40 mg PO BID Qty: 180 1RF prednisone 20 mg tablet 20 mg PO DAILY Qty: 7 0RF ursodiol 300 mg capsule 300 mg PO BID Qty: 180 3RF vitamin E (dl, acetate) 180 mg (400 unit) capsule 180 mg PO BID Qty: 180 3RF sucralfate 100 mg/mL suspension 10 ml PO QACHS Qty: 1000 0RF Referrals / Follow Up: Ezequiel Lepe MD [Primary Care Provider] - Disposition Disposition (needs filled in before D/C Order can be placed): Home, Self Care
[2022-01-18] MEDS: oxyCODONE 5 MG Tablet 10 MG PO (11:57)
[2022-01-18] MEDS: Acetaminophen 325 MG Tablet 650 MG PO (11:57)
== END 2022-01-18 12:51 | disposition home or self-care (01) ==
LOC: SDC 09:16 → AC 09:17
PROVIDERS: PCP Internal Medicine; Referring Provider Urology; Visit Provider Urology
PROC: 3E0K8GC Introduction of Other Therapeutic Substance into Genitourinary Tract, Via Natural or Artificial Opening Endoscopic (ICD-10-PCS; CPT 52287; principal; 2022-01-18 10:45)
DX: N32.81 Overactive bladder (principal); N39.46 Mixed incontinence; R31.9 Hematuria, unspecified; F17.210 Nicotine dependence, cigarettes, uncomplicated; Z79.899 Other long term (current) drug therapy
CPT/HCPCS: 52287; 00910; J7120; J0585; J2405; J3490

== ENCOUNTER 2022-01-23 19:40 | Emergency (ER) | payer MEDICARE, MEDICAID, SELFPAY ==
[2022-01-23 19:42] VITALS: BP 155/92; PULSE 91; RESP 15; TEMP 36.4; O2SAT 97; BMI 54.2
--- NOTE | 2022-01-23 21:27 | CT_ITS ---
STUDY: CT ABDOMEN AND PELVIS WITH CONTRAST REASON FOR EXAM: Female, 46 years old. abdominal pian RADIATION DOSAGE (If Supplied By Facility): CTDIvol = ( 22.07 ) mGy, DLP = ( 1302.67 ) mGycm TECHNIQUE: Transaxial images were obtained from the dome of the diaphragm to the symphysis pubis without oral contrast. IV 100mL [id number]-300 was administered. Sagittal and coronal images were reconstructed. Limited exam due to previously administered barium contrast causing severe streak artifact Individualized dose optimization techniques were used for this CT. COMPARISON: CT abdomen and pelvis dated 10/20/[address] abdomen and pelvis dated 04/10/2020 FINDINGS: Slightly increased size of a soft tissue nodule in the right lung base now measuring 1.9 x 1.9 cm. The visualized portions of the heart are within normal limits. There is decreased attenuation of the liver consistent with steatosis. Normal gallbladder and extrahepatic biliary system. Normal spleen. Normal pancreas. Normal bilateral adrenal glands. Normal right kidney. Normal left kidney. Normal visualized stomach. Normal small intestine. Normal colon. The appendix is visualized and appears normal. Normal abdominal aorta. Normal inferior vena cava. Normal retroperitoneum. Normal urinary bladder. There is absence of the uterus consistent with a prior hysterectomy. Normal abdominal wall. Normal osseous structures. CT/Abdomen/Pelvis W IV Cont ONLY IMPRESSION: Limited exam for reasons above however, no acute findings. Slightly increased size of a soft tissue nodule in the right lung base as compared to a CT abdomen and pelvis from 2019. If there is been no further evaluation of this nodule, recommend PET/CT to further evaluate. Electronically Signed: Demetris Sommer DO at 22:54 EDT ,
--- NOTE | 2022-01-23 21:28 | EDS_ITS ---
HPI HPI - GI History of Present Illness Chief Complaint: Abd Pain Narrative Narrative: 46-year-old female presenting with back pain. She states this started a few days ago. She states that she has chronic back pain and usually takes ibuprofen for this but its not helping. She points to the left lumbar region. She denies any trauma. She is ambulatory but states it is painful when she walks. She states that last week she had a procedure with Dr. Mendez and had Botox injection to do her bladder because she has overactive bladder. She states that she is having some pain when she urinates but she is able to get a full stream. She states she is unsure if the bladder pain is causing the back pain. She does have history of UTIs. She does not have saddle anesthesia. She admits to having diarrhea and is not having any constipation. Patient admits to nausea without vomiting as well. Patient also does have history of kidney stones in the past. PFSH [facility] Medical History Abdominal pain Abdominal wall abscess Anxiety Anxiety and depression Arthritis Asthma BiPAP (biphasic positive airway pressure) dependence Bladder disease Bronchitis Cancer of left kidney Cervical radiculopathy Chronic back pain Chronic cough Chronic neck and back pain COPD (chronic obstructive pulmonary disease) COPD (chronic obstructive pulmonary disease) Costochondritis Depression Diarrhea Diarrhea Fatigue Fatigue Fatty stools Gastric reflux Gastroenteritis GERD (gastroesophageal reflux disease) H/O emotional problems History of echocardiogram History of edema History of hiatal hernia History of mononucleosis History of renal disease History of stress test History of ulceration HTN (hypertension) Incontinence Intertriginous dermatitis associated with moisture Intestinal ulcer Left ankle pain Lesion of bladder Limb weakness Loose, teeth Lung disease Mild chronic gastritis Nausea and vomiting MARGARITA (obstructive sleep apnea) MARGARITA (obstructive sleep apnea) MARGARITA (obstructive sleep apnea) Overactive bladder Overactive bladder Pulmonary hypertension Shortness of breath Shoulder pain Sleep apnea Smoker SOB (shortness of breath) Stress incontinence Stress incontinence UTI (urinary tract infection) Venous insufficiency of both lower extremities Wears glasses Home Medications Handicap Placard #1 ea 11/28/20 [Rx Last Taken Unknown] albuterol sulfate 90 mcg/actuation breath activated powder inhaler 2 inh inhalation Q4H PRN Sob &/Or Wheezing #1 ea 02/23/21 [Rx Last Taken 09/18/21] ursodiol 300 mg capsule 300 mg PO BID NAFLD #180 caps 12/05/21 [Rx Last Taken Unknown] vitamin E (dl, acetate) 180 mg (400 unit) capsule 180 mg PO BID #180 caps 12/05/21 [Rx Last Taken Unknown] sucralfate 100 mg/mL oral suspension 10 ml PO QACHS #1,000 mL 12/18/21 [Rx Last Taken Unknown] pantoprazole 40 mg tablet,delayed release 40 mg PO BID #180 tabs 12/19/21 [Rx Last Taken 01/18/22 07:00] prednisone 20 mg tablet 20 mg PO DAILY #7 tabs 01/12/22 [Rx Last Taken Unknown] nitrofurantoin monohydrate/macrocrystals 100 mg capsule (Macrobid) 100 mg PO BID #6 caps 01/18/22 [Rx Last Taken Unknown] oxycodone-acetaminophen 5 mg-325 mg tablet 2 tab PO Q8H PRN PRN Pain 3 days #10 tabs 01/18/22 [Rx Last Taken Unknown] Allergy/AdvReac Type Severity Reaction Status Date / Time cefaclor [From Ceclor] Allergy Hives Verified 01/23/22 19:45 ciprofloxacin [From Cipro] Allergy Itching Verified 01/23/22 19:45 erythromycin base Allergy Upset Verified 01/23/22 19:45 [Erythromycin Base] Stomach moxifloxacin HCl Allergy Hives Verified 01/23/22 19:45 [From Avelox] Penicillins Allergy Upset Verified 01/23/22 19:45 Stomach sulfamethoxazole Allergy Unknown Verified 01/23/22 19:45 [From Bactrim] trimethoprim [From Bactrim] Allergy Unknown Verified 01/23/22 19:45 Family History Mother CVA (cerebral vascular accident) Thyroid disorder Ulcer Arthritis Father Diabetes Heart disease Myocardial infarction Arthritis Hypertension High cholesterol Skin cancer Son , age 17 Asthma Large B-cell lymphoma Other Anxiety Melanoma Respiratory disease Surgical History History of ankle surgery History of colonoscopy History of cystoscopy History of cystoscopy History of esophagogastroduodenoscopy (EGD) (~01/20/20) History of lymph node biopsy History of partial hysterectomy History of sinus surgery History of tonsillectomy Hx of cholecystectomy Hx of cystoscopy Hx of cystoscopy Hx of hysterectomy Hx of nasal septoplasty Hx of prior ablation treatment Hx of tonsillectomy Social History household members: children Smoking Status: Current every day smoker tobacco type: cigarettes Tobacco: How many years used: 25 alcohol intake: never substance use type: does not use what type of physical activity do you participate in: none do you feel safe at home: Yes ROS ROS ED Constitutional Constitutional ED: Denies chills or fever(s) ENT ENT ED: Denies rhinorrhea or sore throat Cardiovascular Cardiovascular: Denies chest pain or palpitations Respiratory/Chest Respiratory/Chest: Denies cough or dyspnea Gastrointestinal Gastrointestinal: Reports abdominal pain, diarrhea and nausea; Denies vomiting Genitourinary Genitourinary ED: Reports dysuria Musculoskeletal Musculoskeletal: Reports back pain; Denies neck pain Integumentary Denies Abrasions or rash Neurologic Neurologic: Denies headache(s) Psychiatric Psychiatric: Denies anxiety or depression Endocrine Endocrinology: Denies polydipsia or polyphagia EXAM Physical Exam Const Vital Signs: 01/23/22 19:42 Temperature 97.5 F L Temperature Source Temporal Pulse Rate 91 Respiratory Rate 15 Blood Pressure 155/92 H Blood Pressure Mean 113 Pulse Ox 97 Oxygen Delivery Method Room Air Positive obese General Appearance ED: Negative for pallor Nutritional Appearance: obese HEENT Reports moist mucous membranes normocephalic and atraumatic Eyes PERRL and EOMs intact bilaterally General Eye ED: Negative for pale conjunctiva or scleral icterus Resp normal respiratory effort Cardio regular rate and regular rhythm GI GI Narrative: Diffuse generalized tenderness. Abdomen is soft. No peritoneal signs. Back/Spine Back/Spine Narrative: Tenderness to palpation of the left lumbar paraspinal musculature. No midline spinal deformity or step-off Extremity full ROM General Extremety ED: Negative for edema or tenderness General Extremity: Negative for edema Neuro CN's II-XII intact bilaterally and moves all extremities Sensorium / Orientation: alert and oriented to person Motor Exam: strength 5/5 throughout Psych mental status grossly normal Skin no wounds General Skin Exam: Negative for jaundice or pallor MDM MDM MDM Narrative Medical decision making narrative: Patient presenting with back pain which appears to be musculoskeletal based on exam although she just had recent injection of Botox into her bladder as well. She states he is able to void and making a stream. She is having diarrhea and she does not have loss of bladder or bowel control. No history of trauma. She does have history of chronic back pain. She is normally takes ibuprofen for this. She was given morphine and Zofran on arrival. Blood work is obtained and her CBC shows a white blood cell count of 12.9 which appears to be her baseline. Renal function electrolytes are normal. LFTs unremarkable. Urinalysis appears to be contaminated without evidence of infection. There is not a significant amount of occult blood either. Patient request another dose of morphine and t his was given. CT of the abdomen pelvis with IV contrast was obtained that does not show any acute abnormalities although this is somewhat limited because the patient had barium in her bowel. When I went to discuss this with her at this point she told me that she had a barium swallow this morning with GI. She states this was normal. Given that her blood work is at baseline and she does not have any acute abnormalities I feel she is stable for discharge home. She states she has appointment with urology tomorrow morning at 830. I will send her urine for culture at her request. Patient states she has muscle relaxers and NSAIDs at home. Impression: 1. Lumbar strain 2. Nausea 3. Abdominal pain Lab Data Attestation: I reviewed the patient's lab results. Labs: Laboratory Results - last 24 hr 01/23/22 01/23/22 01/23/22 21:39 21:39 22:10 WBC 12.9 H RBC 4.80 Hgb 14.1 Hct 43.2 MCV 90.0 MCH 29.4 MCHC 32.6 RDW Std Deviation 44.7 H RDW Coeff of Saeid 13.5 Plt Count 333 MPV 9.9 Immature Gran % (Auto) 0.800 Neut % (Auto) 55.5 Lymph % (Auto) 37.1 [place] % (Auto) 4.9 Eos % (Auto) 1.4 Baso % (Auto) 0.3 Absolute Neuts (auto) 7.2 Absolute Lymphs (auto) 4.80 H Nucleated RBC % 0 Differential Comment SCANNED Sodium 141 Potassium 3.9 Chloride 107 Carbon Dioxide 27.0 Anion Gap 7 BUN 13 Creatinine 0.73 Estim Creat Clear Calc 84.81 Est GFR (MDRD) Af Amer 110 Est GFR (MDRD) Non-Af 91 BUN/Creatinine Ratio 17.9 Glucose 145 H Calcium 9.1 Total Bilirubin 0.20 AST 17 ALT 42 Alkaline Phosphatase 128 H Total Protein 7.3 Albumin 3.4 Globulin 3.9 Albumin/Globulin Ratio 0.9 Lipase 126 Urine Color Yellow Urine Clarity Sl. Cloudy Urine pH 6.0 Ur Specific [place] 1.020 Urine Protein 15 H Urine Glucose (UA) Normal Urine Ketones Negative Urine Occult Blood 10 H Urine Nitrite Negative Urine Bilirubin Negative Urine Urobilinogen Normal Ur Leukocyte Esterase 25 H Urine RBC 5-10 SEEN Urine WBC 0-5 SEEN Ur Squamous Epith Cells 0-5 SEEN Urine Bacteria 1+ Urine Mucus 0 SEEN Radiography Diagnostic Testing: Clinical Impression(s) from Imaging Studies Abdomen/Pelvis CT 01/23/22 21:27 IMPRESSION: Limited exam for reasons above however, no acute findings. Slightly increased size of a soft tissue nodule in the right lung base as compared to a CT abdomen and pelvis from 2019. If there is been no further evaluation of this nodule, recommend PET/CT to further evaluate. Electronically Signed: Demetris Sommer DO at 22:54 EDT , Discharge Plan Triage Chief Complaint: Abd Pain ED Provider: Alexey Gunn Dx/Rx/DC Orders Prescriptions: No Action (DME) Handicap Bryant See Rx Instructions .ROUTE .MEDSUPPLY Qty: 1 0RF Rx Instructions: As directed, length of time 3 years albuterol sulfate 90 mcg/actuation aerosol powdr breath activated 2 inh INHALATION Q4H PRN (Reason: Sob &/Or Wheezing) Qty: 1 0RF pantoprazole 40 mg tablet,delayed release (DR/EC) 40 mg PO BID Qty: 180 1RF prednisone 20 mg tablet 20 mg PO DAILY Qty: 7 0RF nitrofurantoin monohyd/m-cryst [Macrobid] 100 mg capsule 100 mg PO BID Qty: 6 0RF Rx Instructions: must administer with a meal/food oxycodone-acetaminophen [oxycodone-acetaminophen] 5-325 mg tablet 2 tab PO Q8H PRN PRN (Reason: Pain) 3 Days Qty: 10 0RF ursodiol 300 mg capsule 300 mg PO BID Qty: 180 3RF vitamin E (dl, acetate) 180 mg (400 unit) capsule 180 mg PO BID Qty: 180 3RF sucralfate 100 mg/mL suspension 10 ml PO QACHS Qty: 1000 0RF Primary Care Provider: Ezequiel Lepe Referrals: Ezequiel Lepe MD [Primary Care Provider] -
[2022-01-23] MEDS: Morphine 4 MG/ML Syringe IV ×2 (21:37→22:37)
[2022-01-23] MEDS: 0.9% Normal Saline 1,000 ML 1000 ML IV (21:37)
[2022-01-23] MEDS: Ondansetron 4 MG/2 ML Vial IV (21:37)
[2022-01-23 21:45] LABS: Absolute Neutrophil Count 7.2 X10^3/uL (2.0-7.7); Basophil# 0.04 X10^3/uL; Basophil% 0.3 % (0-1); Eosinophil# 0.18 X10^3/uL; Eosinophils% 1.4 % (0-5); Hematocrit 43.2 % (37-47); Hemoglobin 14.1 g/dL (12.0-15.0); Lymphocyte % 37.1 % (19-41); Mean Corp Hgb Conc 32.6 g/dL (32-36); Mean Corpuscular Hgb 29.4 pg (27.0-32.0); Mean Platelet Vol. 9.9 fl (6.2-12.0); Monocyte# 0.64 X10^3/uL; Monocyte% 4.9 % (0-10); NRBC Flagged by Analyzer 0 % (0-5); Neutrophil # 7.18 X10^3/uL (2.7-7.7); Neutrophil % 55.5 % (47-70); POSITIVE MORPHOLOGY YES; Platelet Count 333 K/mm3 (150-450); RBC Distribution Width CV 13.5 % (11.6-14.6); RBC Distribution Width SD 44.7 fl (35.1-43.9); White Blood Count 12.9 K/mm3 (4.4-11.0)
[2022-01-23 21:51] LABS: Differential Indicated SCAN CRITERIA MET
[2022-01-23 22:06] LABS: ALB/GLOB Ratio 0.9 RATIO (0.9-2.4); AST(SGOT) 17 U/L (15-37); Alanine Aminotransfer ALT/SGPT 42 U/L (13-56); Albumin, Serum 3.4 g/dL (3.2-5.0); Alkaline Phosphatase 128 U/L (45-117); Anion Gap 7 (5-15); BUN 13 mg/dL (7-18); BUN/Creat Ratio 17.9 RATIO (10-20); Calcium,Total 9.1 mg/dL (8.5-10.1); Chloride 107 mmol/L (98-107); Creatinine, Serum 0.73 mg/dL (0.55-1.02); EST Glomerular Filtration Rate 91 mL/min (>60); Est Glom Filt Rate - Afr Amer 110 mL/min (>60); Estimated Creatinine Clearance 84.81 ml/min; Globulin 3.9 g/dL (2.2-4.2); Glucose 145 mg/dL (74-106); Lipase 126 U/L (73-393); Potassium 3.9 mmol/L (3.5-5.1); Protein, Total 7.3 g/dL (6.4-8.2); Sodium Level 141 mmol/L (136-145)
[2022-01-23 22:08] LABS: Differential Comment SCANNED
[2022-01-23 22:31] LABS: Mucous, Urine 0 SEEN /hpf (<or=2+)
[2022-01-23 22:35] LABS: Color, Urine Yellow (Yellow); Glucose, Dipstick Normal (Normal); Ketone-Dipstick Negative (Negative); Leukocyte Esterase-Dipstick 25 /ul (Negative); Nitrite-Dipstick Negative (Negative); Occult Blood-Urine 10 /ul (Negative); Protein-Dipstick 15 mg/dl (Negative); Urine Bilirubin Dipstick Negative (Negative); Urine Clarity Sl. Cloudy (Clear); Urine Urobilinogen Normal (Normal)
[2022-01-23 22:54] LABS: Bacteria 1+ /hpf (None Seen); Red Blood Cells-Urine 5-10 SEEN /hpf (0-5); Squamous Epithelial Cells - UA 0-5 SEEN /hpf (5-10); White Blood Cells 0-5 SEEN /hpf (0-5)
== END 2022-01-23 23:53 | disposition home or self-care (01) ==
PROVIDERS: Emergency Provider Student in an Organized Health Care Education/Training Program; PCP Internal Medicine; Visit Provider Student in an Organized Health Care Education/Training Program
DX: S39.012A Strain of muscle, fascia and tendon of lower back, initial encounter (principal); J44.9 Chronic obstructive pulmonary disease, unspecified; X58.XXXA Exposure to other specified factors, initial encounter; R10.9 Unspecified abdominal pain; R11.0 Nausea; R19.7 Diarrhea, unspecified; N32.81 Overactive bladder; I10 Essential (primary) hypertension; R13.10 Dysphagia, unspecified; M54.9 Dorsalgia, unspecified; G89.29 Other chronic pain; G47.33 Obstructive sleep apnea (adult) (pediatric); K21.9 Gastro-esophageal reflux disease without esophagitis; F32.A Depression, unspecified; F17.210 Nicotine dependence, cigarettes, uncomplicated; Z79.52 Long term (current) use of systemic steroids; Z87.440 Personal history of urinary (tract) infections; Z87.442 Personal history of urinary calculi
CPT/HCPCS: 74177; 74221; 80053; 81001; 83690; 85025; 96361; 96374; 96375; 96376; 99283; J7030; Q9967; J2405

== ENCOUNTER → 2022-01-23 | Outpatient (CLI) | payer MEDICARE, MEDICAID, SELFPAY ==
--- NOTE | 2022-01-23 08:00 | RAD_ITS ---
STUDY: X-RAY - ESOPHAGUS (BARIUM SWALLOW) WITH FLUOROSCOPY REASON FOR EXAM: Female, 46 years old. Difficulty swallowing throat/upper esophagus TECHNIQUE: 13 view(s) of the esophagus were obtained following swallowing of barium. FLUOROSCOPY TIME (if supplied): (26 seconds) minutes/seconds COMPARISON: None. FINDINGS: There is no demonstrated esophageal foreign body. There is no demonstrated stricture or mucosal abnormality. Normal gastroesophageal junction, without a demonstrated hiatal hernia. The patient ingested a 12 mm tablet of barium without any difficulty. Normal visualized aortic arch and descending thoracic aorta. Normal visualized pulmonary parenchyma. There are mild degenerative changes of the visualized thoracic spine. RAD/Esophagus Dual Contrast IMPRESSION: Normal plain film x-ray examination (barium swallow) of the esophagus. Electronically Signed: Michael Jacome MD at 10:27 EDT ,
== END | disposition home or self-care (01) ==
LOC: RAD 07:57
PROVIDERS: PCP Internal Medicine; Referring Provider Nurse Practitioner Adult Health; Visit Provider Nurse Practitioner Adult Health
DX: R13.10 Dysphagia, unspecified (principal)
CPT/HCPCS: 74221

== ENCOUNTER 2022-04-17 12:57 | Emergency (ER) | payer MEDICARE, MEDICAID, SELFPAY ==
[2022-04-17 12:58] VITALS: BP 148/92; PULSE 85; RESP 16; TEMP 36.4; O2SAT 98; BMI 54.2
[2022-04-17 13:02] VITALS: BP 148/92; PULSE 85; RESP 18; TEMP 36.4; O2SAT 98
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
[2022-04-17] MEDS: Ipratropium/Albuterol Sulfate 3 ML AMPUL.NEB INHALATION (13:23)
[2022-04-17 13:25] VITALS: PULSE 85; RESP 18
[2022-04-17 13:32] LABS: Absolute Lymphocyte Count 2.87 X10^3/uL (0.83-4.51); Absolute Neutrophil Count 6.9 X10^3/uL (2.0-7.7); Basophil# 0.04 X10^3/uL; Basophil% 0.4 % (0-1); Hematocrit 41.2 % (37-47); Hemoglobin 13.4 g/dL (12.0-15.0); Lymphocyte # 2.87 X10^3/ul (0.83-4.51); Lymphocyte % 27.3 % (19-41); Mean Corp Hgb Conc 32.5 g/dL (32-36); Mean Corpuscular Hgb 29.1 pg (27.0-32.0); Mean Corpuscular Volume 89.6 fL (81-99); Mean Platelet Vol. 10.3 fl (6.2-12.0); Monocyte# 0.55 X10^3/uL; Monocyte% 5.2 % (0-10); NRBC Flagged by Analyzer 0 % (0-5); Neutrophil # 6.88 X10^3/uL (2.7-7.7); Neutrophil % 65.4 % (47-70); Platelet Count 302 K/mm3 (150-450); RBC Distribution Width SD 42.4 fl (35.1-43.9); White Blood Count 10.5 K/mm3 (4.4-11.0)
[2022-04-17 13:34] VITALS: O2SAT 96
[2022-04-17 13:44] LABS: Anion Gap 6 (5-15); BUN 9 mg/dL (7-18); BUN/Creat Ratio 11.5 RATIO (10-20); Chloride 107 mmol/L (98-107); Creatinine, Serum 0.79 mg/dL (0.55-1.02); EST Glomerular Filtration Rate 83 mL/min (>60); Est Glom Filt Rate - Afr Amer 100 mL/min (>60); Estimated Creatinine Clearance 78.36 ml/min; Glucose 179 mg/dL (74-106); Potassium 3.8 mmol/L (3.5-5.1); Sodium Level 139 mmol/L (136-145)
--- NOTE | 2022-04-17 13:45 | RAD_ITS ---
STUDY: X-RAY CHEST REASON FOR EXAM: Female, 46 years old. SOB TECHNIQUE: Single AP portable view of the chest. COMPARISON: Comparison is made with prior study 01/07/2022. FINDINGS: There is a 2.2 cm x 2.1 cm rounded nodule in the lateral aspect of the right lower lobe. This is unchanged. There is no demonstrated pleural abnormality. Normal size heart. Normal mediastinum and jalyn. Normal visualized pulmonary arteries. Normal visualized aortic arch and descending thoracic aorta. Normal visualized thoracic spine. Normal visualized ribs, clavicles, and shoulders. There is no demonstrated abnormality of the visualized soft tissue structures of the upper abdomen. RAD/Chest 1 View (Portable) IMPRESSION: Normal x-ray examination of the chest. Electronically Signed: Michael Jacome MD at 14:31 EST ,
--- NOTE | 2022-04-17 14:26 | NURSING ---
pt back to room from amb from br. spo2 96% on ra with ambulation but very sob. cont pox on as ordered. call light within reach. waiting on cxr. no other needs
[2022-04-17 15:17] VITALS: BP 127/66; PULSE 82; RESP 16; TEMP 36.6; O2SAT 97
== END 2022-04-17 15:18 | disposition home or self-care (01) ==
PROVIDERS: Physician Assistant; Emergency Provider Emergency Medicine; PCP Internal Medicine; Visit Provider Emergency Medicine
DX: J44.1 Chronic obstructive pulmonary disease with (acute) exacerbation (principal); J32.9 Chronic sinusitis, unspecified; M54.9 Dorsalgia, unspecified; I10 Essential (primary) hypertension; R51.9 Headache, unspecified; R73.9 Hyperglycemia, unspecified; F17.210 Nicotine dependence, cigarettes, uncomplicated; Z79.899 Other long term (current) drug therapy
CPT/HCPCS: 71045; 80048; 85025; 94640; 99283; A4216

== ENCOUNTER 2022-06-21 10:41 | Emergency (ER) | payer MEDICARE, MEDICAID, SELFPAY ==
[2022-06-21 10:43] VITALS: BP 156/100; PULSE 97; RESP 17; TEMP 36.3; O2SAT 98; BMI 54.1
--- NOTE | 2022-06-21 11:35 | EX.ED.DYSGE1 ---
HPI History of Present Illness Chief Complaint: Other, Pain/Inj Informant: patient and spouse/S.O. Narrative Narrative: Presenting with nontraumatic upper neck pain with headache on both sides for 3 days. Symptoms worsen over the past day. Denies any heavy lifting or change recent head injuries. No fevers. She is using ibuprofen and caffeine. She is using IcyHot. Denies history of similar. Denies photophobia or phonophobia. Denies history gastric ulcers or kidney injury. History of COPD with tobacco. History of asthma. Prior similar symptoms: No PFSH PFSH Medical History Abdominal pain Abdominal wall abscess Anxiety Anxiety and depression Arthritis Asthma BiPAP (biphasic positive airway pressure) dependence Bladder disease Bronchitis Cancer of left kidney Cervical radiculopathy Chronic back pain Chronic cough Chronic neck and back pain COPD (chronic obstructive pulmonary disease) COPD (chronic obstructive pulmonary disease) Costochondritis Depression Diarrhea Diarrhea Dizziness Fatigue Fatigue Fatty stools Gastric reflux Gastroenteritis Generalized anxiety disorder GERD (gastroesophageal reflux disease) H/O emotional problems Headache History of echocardiogram History of edema History of hiatal hernia History of mononucleosis History of renal disease History of stress test History of ulceration HTN (hypertension) Incontinence Intertriginous dermatitis associated with moisture Intestinal ulcer Left ankle pain Lesion of bladder Limb weakness Loose, teeth Lung disease Mild chronic gastritis Nausea and vomiting MARGARITA (obstructive sleep apnea) MARGARITA (obstructive sleep apnea) MARGARITA (obstructive sleep apnea) Overactive bladder Overactive bladder Pulmonary hypertension Shortness of breath Shoulder pain Sleep apnea Smoker SOB (shortness of breath) Stress incontinence Stress incontinence UTI (urinary tract infection) Venous insufficiency of both lower extremities Wears glasses Home Medications Handicap Placard #1 ea 11/28/20 [Rx Last Taken Unknown] pantoprazole 40 mg tablet,delayed release 40 mg PO BID #180 tabs 12/19/21 [Rx Last Taken 01/18/22 07:00] amlodipine 5 mg tablet 5 mg PO DAILY #60 tabs 01/31/22 [Rx Last Taken Unknown] ibuprofen 800 mg tablet 800 mg PO Q8H 01/31/22 [History Last Taken Unknown] duloxetine 30 mg capsule,delayed release 30 mg PO BID #60 caps 02/15/22 [Rx Last Taken Unknown] lorazepam 0.5 mg tablet (Ativan) 0.5 mg PO DAILY PRN anxiety #10 tabs 02/15/22 [Rx Last Taken Unknown] albuterol sulfate 90 mcg/actuation breath activated powder inhaler 2 inh inhalation Q4H PRN Sob &/Or Wheezing #1 ea 03/21/22 [Rx Last Taken Unknown] doxycycline hyclate 100 mg tablet 200 mg PO DAILY 7 days #14 tabs 04/17/22 [Rx Last Taken Unknown] fluticasone propionate 50 mcg/actuation nasal spray,suspension (Flonase Allergy Relief) 2 spray intranasal DAILY #16 grams 04/17/22 [Rx Last Taken Unknown] phenylephrine HCl 10 mg tablet 10 mg PO Q4H PRN nasal congestion 1 week #30 tabs 04/17/22 [Rx Last Taken Unknown] prednisone 50 mg tablet 50 mg PO DAILY #5 tabs 04/17/22 [Rx Last Taken Unknown] Allergy/AdvReac Type Severity Reaction Status Date / Time cefaclor [From Ceclor] Allergy Hives Verified 06/21/22 10:42 ciprofloxacin [From Cipro] Allergy Itching Verified 06/21/22 10:42 erythromycin base Allergy Upset Verified 06/21/22 10:42 [Erythromycin Base] Stomach moxifloxacin HCl Allergy Hives Verified 06/21/22 10:42 [From Avelox] Penicillins Allergy Upset Verified 06/21/22 10:42 Stomach sulfamethoxazole Allergy Unknown Verified 06/21/22 10:42 [From Bactrim] trimethoprim [From Bactrim] Allergy Unknown Verified 06/21/22 10:42 Family History Mother CVA (cerebral vascular accident) Thyroid disorder Ulcer Arthritis Father Diabetes Heart disease Myocardial infarction Arthritis Hypertension High cholesterol Skin cancer Son , age 17 Asthma Large B-cell lymphoma Other Anxiety Melanoma Respiratory disease Surgical History History of ankle surgery History of colonoscopy History of cystoscopy History of cystoscopy History of esophagogastroduodenoscopy (EGD) (~01/20/20) History of lymph node biopsy History of partial hysterectomy History of sinus surgery History of tonsillectomy Hx of cholecystectomy Hx of cystoscopy Hx of cystoscopy Hx of hysterectomy Hx of nasal septoplasty Hx of prior ablation treatment Hx of tonsillectomy Social History household members: children Smoking Status: Current every day smoker tobacco type: cigarettes Tobacco: How many years used: 25 alcohol intake: never substance use type: does not use what type of physical activity do you participate in: none do you feel safe at home: Yes ROS ROS ED Constitutional Constitutional ED: Denies chills, fever(s) or sweats Eyes Eyes: Denies change in vision ENT ENT ED: Denies dysphagia or sore throat Cardiovascular Cardiovascular: Denies chest pain, leg edema, palpitations or racing heartbeat Respiratory/Chest Respiratory/Chest: Denies cough, dyspnea or dyspnea on exertion Gastrointestinal Gastrointestinal: Denies abdominal pain, diarrhea, nausea or vomiting Genitourinary Genitourinary ED: Denies dysuria, hematuria or urinary frequency Musculoskeletal Musculoskeletal: Reports neck pain; Denies back pain or extremity pain Integumentary Denies rash or wounds Neurologic Neurologic: Reports headache(s); Denies paresthesias or weakness EXAM Physical Exam Const Vital Signs: 06/21/22 10:43 Temperature 97.3 F L Temperature Source Temporal Pulse Rate 97 Respiratory Rate 17 Blood Pressure 156/100 H Blood Pressure Mean 118 Pulse Ox 98 Oxygen Delivery Method Room Air Positive well nourished and well developed General Appearance ED: well developed and NAD HEENT Reports moist mucous membranes normocephalic and atraumatic Eyes PERRL, EOMs intact bilaterally and conjunctivae normal General Eye ED: Yes normal appearance of both eyes Neck no lymphadenopathy and supple Neck Narrative: Patient somatic dysfunction C2-C3 on the right rotated side bent to the right. No midline tenderness. No meningismus. General: Negative for tenderness Chest Wall Chest: Negative for tenderness Resp normal respiratory effort and normal air movement Effort and Inspection: symmetric chest movement; Negative for respiratory distress Cardio regular rate, regular rhythm and no murmurs Peripheral Pulses: pulses 2+ throughout GI normal to inspection, nondistended, normoactive bowel sounds and non-tender Palpation: Negative for guarding or rebound tenderness present Back/Spine no CVA tenderness and no thoracic nor lumbar tenderness Extremity normal to inspection General Extremety ED: Negative for edema or tenderness General Extremity: Negative for edema Neuro oriented x3, CN's II-XII intact bilaterally and no sensory deficits noted Sensorium / Orientation: awake and alert Skin no rashes or lesions noted and no wounds MDM MDM MDM Narrative Medical decision making narrative: Interventions / MDM: Differential diagnosis: Tension headache, somatic dysfunction cervical spine Diagnosis considered but do not suspect: Meningitis, subarachnoid hemorrhage, clinically no focal deficits or meningismus or any thunderclap headaches. My EKG interpretation: N/A Imaging independently reviewed and interpreted by myself: N/A External documents reviewed: N/A Test considered but not ordered:N/A ED course: Patient with tension headache symptoms somatic dysfunction of cervical spine. I did perform HVLA to the cervical spine with improved movement. Additional migraine cocktail with improvement of symptoms. Discharged with outpatient follow-up. Re-evaluation: stable and improved Disposition discussed with patient/family/significant other: Patient Case discussed with consulting clinician: N/A Procedure note: Verbal consent. Osteopathic manipulation. Patient laid flat supine position. Cervical spine right side isolated with HVLA with no complications. Immediate improvement of movement. No discomfort. Patient Toller procedure well. Discharge Plan Triage Chief Complaint: Other, Pain/Inj ED Provider: William Campos Dx/Rx/DC Orders Clinical Impression: Acute tension headache, Somatic dysfunction of cervical region Instructions: ED Headache, Tension, ED Neck Pain Prescriptions: No Action (DME) Handicap Placard See Rx Instructions .ROUTE .MEDSUPPLY Qty: 1 0RF Rx Instructions: As directed, length of time 3 years pantoprazole 40 mg tablet,delayed release (DR/EC) 40 mg PO BID Qty: 180 1RF ibuprofen 800 mg tablet 800 mg PO Q8H amlodipine 5 mg tablet 5 mg PO DAILY Qty: 60 1RF duloxetine 30 mg capsule,delayed release(DR/EC) 30 mg PO BID Qty: 60 1RF lorazepam [Ativan] 0.5 mg tablet 0.5 mg PO DAILY PRN (Reason: anxiety) Qty: 10 0RF fluticasone propionate [Flonase Allergy Relief] 50 mcg/actuation spray,suspension 2 spray intranasal DAILY Qty: 16 0RF Rx Instructions: administer into each nostril phenylephrine HCl 10 mg tablet 10 mg PO Q4H PRN (Reason: nasal congestion) 7 Days Qty: 30 0RF prednisone 50 mg tablet 50 mg PO DAILY Qty: 5 0RF doxycycline hyclate 100 mg tablet 200 mg PO DAILY 7 Days Qty: 14 0RF albuterol sulfate 90 mcg/actuation aerosol powdr breath activated 2 inh INHALATION Q4H PRN (Reason: Sob &/Or Wheezing) Qty: 1 3RF Primary Care Provider: Ezequiel Lepe Referrals: Ezequiel Lepe MD [Primary Care Provider] - 1 Week if not improving Activity Restrictions/Additional Instructions: Stat post HVLA cervical spine. Improvement of movement. Improvement with migraine treatment. Symptoms of tension headache. Continue Tylenol or ibuprofen as needed follow-up with your doctor. Disposition Disposition: Home, Self Care Discharge Date/Time: 06/21/22 12:50
[2022-06-21] MEDS: DiphenhydrAMINE 50 MG/ML Syringe 25 MG IV (12:01)
[2022-06-21] MEDS: proCHLORPERazine 10 MG/2 ML Vial IV (12:01)
[2022-06-21] MEDS: 0.9% Normal Saline 1,000 ML 999 ML IV (12:01)
[2022-06-21] MEDS: Ketorolac 15 MG/ML Vial IV (12:05)
== END 2022-06-21 12:50 | disposition home or self-care (01) ==
PROVIDERS: Emergency Provider Emergency Medicine; PCP Internal Medicine; Visit Provider Emergency Medicine
DX: G44.209 Tension-type headache, unspecified, not intractable (principal); J44.9 Chronic obstructive pulmonary disease, unspecified; F17.210 Nicotine dependence, cigarettes, uncomplicated; M99.01 Segmental and somatic dysfunction of cervical region; I10 Essential (primary) hypertension
CPT/HCPCS: 96361; 96374; 96375; 99283; J7030; A4216

== ENCOUNTER 2022-07-09 12:58 | Emergency (ER) | payer MEDICARE, MEDICAID, SELFPAY ==
[2022-07-09 12:59] VITALS: BP 142/106; PULSE 99; RESP 18; TEMP 37.7; O2SAT 96
--- NOTE | 2022-07-09 13:07 | EKG12_ITS ---
Test Reason : Blood Pressure : / mmHG Vent. Rate : 095 BPM Atrial Rate : 095 BPM P-R Int : 148 ms QRS Dur : 076 ms QT Int : 384 ms P-R-T Axes : 063 051 056 degrees QTc Int : 482 ms Normal sinus rhythm Abnormal ECG Confirmed by PARTH FRANCO, VÍCTOR ([id number]), research editor TIM ANTOINE ([id number]) on 07/12/2022 9:54:47 AM Referred By: MERCEDES Confirmed By:VÍCTOR ALBA MD
== END 2022-07-09 14:55 | disposition left against medical advice (07) ==
LOC: ED 15:26
PROVIDERS: PCP Internal Medicine
DX: Z53.21 Procedure and treatment not carried out due to patient leaving prior to being seen by health care provider (principal)
CPT/HCPCS: 93005

== ENCOUNTER 2022-07-14 09:18 | Emergency (ER) | payer MEDICARE, MEDICAID, SELFPAY ==
[2022-07-14 09:18] VITALS: BP 193/120; PULSE 110; RESP 22; TEMP 36.3; O2SAT 98; BMI 55.7
--- NOTE | 2022-07-14 09:27 | RAD_ITS ---
EXAM: XR CHEST, 1 VIEW CLINICAL INDICATION: Dyspnea TECHNIQUE: Frontal view of the chest. This report was created using [employer] report generation technology. COMPARISON: XR Chest dated 04/17/2022 FINDINGS: LUNGS AND PLEURAL SPACES: Normal. No consolidation or edema. No pneumothorax. No effusion. HEART: Normal heart size. MEDIASTINUM: No mediastinal or hilar mass. BONES/JOINTS: No acute abnormality. SOFT TISSUES: Normal. RAD/Chest 1 View (Portable) IMPRESSION: No acute cardiopulmonary abnormality. No interval change. Electronically Signed: Jabier Birch MD at 10:23 EST ,
--- NOTE | 2022-07-14 09:27 | EKG12_ITS ---
Test Reason : CP/SOB Blood Pressure : / mmHG Vent. Rate : 084 BPM Atrial Rate : 084 BPM P-R Int : 142 ms QRS Dur : 080 ms QT Int : 398 ms P-R-T Axes : 069 060 057 degrees QTc Int : 470 ms Normal sinus rhythm Normal ECG Confirmed by ANGELA FRANCO, NELSON ([id number]), photo editor TIM ANTOINE ([id number]) on 07/16/2022 2:33:08 PM Referred By: MAKAYLA Confirmed By:NELSON MILLER MD
--- NOTE | 2022-07-14 09:29 | ED.VIS.DYS ---
HPI History of Present Illness Chief Complaint: Shortness of Breath Detail of Chief Complaint: Shortness of breath and chest pain Informant: patient Narrative Narrative: Patient presents the emergency department complaint of chest pain and shortness of breath that she has had for about 2 weeks. Patient states that she has a cough that is mostly nonproductive. She has had a fever up to 102. Patient tells me that 5 days ago she was in the emergency department here but it was busy so she went to [facility] where they evaluated her and admitted her to rule out cardiac etiology of her chest pain. Patient states that she then had a panic attack and signed out AGAINST MEDICAL ADVICE. Patient tells me that she had a D-dimer while in the emergency department that was elevated so they did do a CTA of her chest but she did not hear the results of it. Patient complains of retrosternal heaviness/feels like a cinderblock in the middle of my chest. Patient has history of COPD and asthma. Patient uses BiPAP at night and oxygen at night. Patient denies recent travel or surgery. [facility] Medical History Abdominal pain Abdominal wall abscess Anxiety Anxiety and depression Arthritis Asthma BiPAP (biphasic positive airway pressure) dependence Bladder disease Bronchitis Cancer of left kidney Cervical radiculopathy Chronic back pain Chronic cough Chronic neck and back pain COPD (chronic obstructive pulmonary disease) COPD (chronic obstructive pulmonary disease) Costochondritis Depression Diarrhea Diarrhea Dizziness Fatigue Fatigue Fatty stools Gastric reflux Gastroenteritis Generalized anxiety disorder GERD (gastroesophageal reflux disease) H/O emotional problems Headache History of echocardiogram History of edema History of hiatal hernia History of mononucleosis History of renal disease History of stress test History of ulceration HTN (hypertension) Incontinence Intertriginous dermatitis associated with moisture Intestinal ulcer Left ankle pain Lesion of bladder Limb weakness Loose, teeth Lung disease Mild chronic gastritis Nausea and vomiting MARGARITA (obstructive sleep apnea) MARGARITA (obstructive sleep apnea) MARGARITA (obstructive sleep apnea) Overactive bladder Overactive bladder Pulmonary hypertension Shortness of breath Shoulder pain Sleep apnea Smoker SOB (shortness of breath) Stress incontinence Stress incontinence UTI (urinary tract infection) Venous insufficiency of both lower extremities Wears glasses Home Medications Handicap Bryant #1 ea 11/28/20 [Rx Last Taken Unknown] pantoprazole 40 mg tablet,delayed release 40 mg PO BID #180 tabs 12/19/21 [Rx Last Taken 01/18/22 07:00] amlodipine 5 mg tablet 5 mg PO DAILY #60 tabs 01/31/22 [Rx Last Taken Unknown] ibuprofen 800 mg tablet 800 mg PO Q8H 01/31/22 [History Last Taken Unknown] duloxetine 30 mg capsule,delayed release 30 mg PO BID #60 caps 02/15/22 [Rx Last Taken Unknown] lorazepam 0.5 mg tablet (Ativan) 0.5 mg PO DAILY PRN anxiety #10 tabs 02/15/22 [Rx Last Taken Unknown] albuterol sulfate 90 mcg/actuation breath activated powder inhaler 2 inh inhalation Q4H PRN Sob &/Or Wheezing #1 ea 03/21/22 [Rx Last Taken Unknown] fluticasone propionate 50 mcg/actuation nasal spray,suspension (Flonase Allergy Relief) 2 spray intranasal DAILY #16 grams 04/17/22 [Rx Last Taken Unknown] phenylephrine HCl 10 mg tablet 10 mg PO Q4H PRN nasal congestion 1 week #30 tabs 04/17/22 [Rx Last Taken Unknown] doxycycline hyclate 100 mg tablet 100 mg PO BID #20 tabs 07/10/22 [Rx Last Taken Unknown] prednisone 20 mg tablet 20 mg PO BID #10 tabs 07/14/22 [Rx Last Taken Unknown] Allergy/AdvReac Type Severity Reaction Status Date / Time cefaclor [From Ceclor] Allergy Hives Verified 07/14/22 09:21 ciprofloxacin [From Cipro] Allergy Itching Verified 07/14/22 09:21 erythromycin base Allergy Upset Verified 07/14/22 09:21 [Erythromycin Base] Stomach moxifloxacin HCl Allergy Hives Verified 07/14/22 09:21 [From Avelox] Penicillins Allergy Upset Verified 07/14/22 09:21 Stomach sulfamethoxazole Allergy Unknown Verified 07/14/22 09:21 [From Bactrim] trimethoprim [From Bactrim] Allergy Unknown Verified 07/14/22 09:21 Family History Mother CVA (cerebral vascular accident) Thyroid disorder Ulcer Arthritis Father Diabetes Heart disease Myocardial infarction Arthritis Hypertension High cholesterol Skin cancer Son , age 17 Asthma Large B-cell lymphoma Other Anxiety Melanoma Respiratory disease Surgical History History of ankle surgery History of colonoscopy History of cystoscopy History of cystoscopy History of esophagogastroduodenoscopy (EGD) (~01/20/20) History of lymph node biopsy History of partial hysterectomy History of sinus surgery History of tonsillectomy Hx of cholecystectomy Hx of cystoscopy Hx of cystoscopy Hx of hysterectomy Hx of nasal septoplasty Hx of prior ablation treatment Hx of tonsillectomy Social History household members: children Smoking Status: Current every day smoker tobacco type: cigarettes Tobacco: How many years used: 25 alcohol intake: never substance use type: does not use what type of physical activity do you participate in: none do you feel safe at home: Yes ROS ROS ED Review of Systems ROS Unobtainable: other Constitutional Constitutional ED: Reports fever(s) and lethargy; Denies chills, sweats or weight loss Eyes Eyes: Denies blurry vision, change in vision or diplopia ENT ENT ED: Denies rhinorrhea or sore throat Cardiovascular Cardiovascular: Reports chest pain; Denies orthopnea or racing heartbeat Respiratory/Chest Respiratory/Chest: Reports cough, dyspnea and dyspnea on exertion; Denies orthopnea or sputum Gastrointestinal Gastrointestinal: Denies abdominal pain, diarrhea, nausea or vomiting Genitourinary Genitourinary ED: Denies dysuria, hematuria or urinary frequency Musculoskeletal Musculoskeletal: Denies arthralgias, back pain, myalgias or neck pain Integumentary Denies abscess, Abrasions or rash Neurologic Neurologic: Denies headache(s) or weakness Psychiatric Psychiatric: Denies anxiety, depression or suicidal thoughts Endocrine Endocrinology: Denies polydipsia, polyphagia or polyuria Hematologic/Lymphatic Hematologic/Lymphatic: Denies easy bleeding, easy bruising or lymphadenopathy Allergic/Immunologic Allergic/Immunologic ED: Denies mouth swelling, tongue swelling or urticaria EXAM Physical Exam Const Vital Signs: 07/14/22 09:18 07/14/22 09:32 07/14/22 09:39 Temperature 97.3 F L 97.3 F L Temperature Source Temporal Oral Pulse Rate 110 H 82 Respiratory Rate 22 H 20 H Respiratory Effort Short of Breath Respiratory Depth Normal Respiratory Pattern Normal Blood Pressure 193/120 H 184/102 H Blood Pressure Mean 144 129 Pulse Ox 98 98 Oxygen Delivery Method Room Air Room Air Room Air 07/14/22 09:40 07/14/22 09:40 Temperature Temperature Source Pulse Rate 81 Respiratory Rate 23 H Respiratory Effort Respiratory Depth Respiratory Pattern Blood Pressure Blood Pressure Mean Pulse Ox 97 Oxygen Delivery Method Room Air Positive well nourished and well developed General Appearance ED: well developed and NAD HEENT Reports TM's clear and moist mucous membranes normocephalic and atraumatic; Negative for trauma or tenderness Tympanic Membrane ED: Yes TM's clear Eyes PERRL and EOMs intact bilaterally General Eye ED: Negative for pale conjunctiva or scleral icterus Neck no lymphadenopathy, supple and no JVD General: Negative for tenderness Chest Wall inspection of chest normal and palpation of chest normal Chest: Negative for tenderness Resp normal respiratory effort and clear to auscultation bilaterally Resp Narrative: Patient with mild conversational dyspnea. No accessory muscle use or retractions. She has some faint expiratory wheezes bilaterally. Effort and Inspection: Negative for respiratory distress or pain with movement Auscultation: wheezes; Negative for rhonchi or diminished lung sounds Cardio regular rate, regular rhythm, S1 normal heart sound, S2 normal heart sound and no murmurs Peripheral Pulses: pulses 2+ throughout GI normal to inspection, nondistended, normoactive bowel sounds, soft to palpation, non-tender, non-distended and no masses Back/Spine no CVA tenderness and no thoracic nor lumbar tenderness Extremity normal to inspection General Extremety ED: Negative for edema General Extremity: Negative for edema Neuro oriented x3, CN's II-XII intact bilaterally, no sensory deficits noted and gait normal Sensorium / Orientation: awake, alert, oriented to person, oriented to place and oriented to time Motor Exam: strength 5/5 throughout and strength abnormal Psych mental status grossly normal Skin no rashes or lesions noted and no wounds MDM MDM MDM Narrative Medical decision making narrative: Patient presents with dyspnea as well as fever and cough that she has had for 2 weeks. Patient seen at [facility] July 09, 2022 and had significant work-up and diagnosed with pneumonia. Patient states that she signed out AGAINST MEDICAL ADVICE and called her rental car ferry driver who called her in doxycycline. I did obtain medical record from her visit on July 09 at [facility] and it was noted there that she had a normal BNP. Patient had an elevated D-dimer but the CTA was negative for PE or dissection but did show possible pneumonia. She had a mild elevation in her WBC count at that time. On arrival here she had an EKG that showed a sinus rhythm with a ventricular rate of 84 bpm with no acute ST segment changes. White blood cell count today is normal at 11.0. Chemistries were unremarkable. Lactate was normal 1.8. Chest x-ray showed no acute disease process. Patient's troponin normal today. Patient's vital signs remained stable and a O2 saturation in the mid 90s. At this time there is no indication for admission. I do not feel she is having acute coronary syndrome. Patient will be given a prescription for prednisone. Patient to continue with her doxycycline. Patient to follow-up with her rental car ferry driver within the next 3 to 5 days. History & Record Review Discussion w/independent historian: Patient Additional record(s) reviewed:: Other (Prior ED visit at other facility from July 09, 2022) Lab Data Attestation: I reviewed the patient's lab results. Labs: Laboratory Results - last 24 hr 07/14/22 07/14/22 07/14/22 09:35 09:35 09:35 WBC 11.0 RBC 4.80 Hgb 14.1 Hct 42.5 MCV 88.5 MCH 29.4 MCHC 33.2 RDW Std Deviation 42.9 RDW Coeff of Saeid 13.2 Plt Count 286 MPV 10.4 Immature Gran % (Auto) 0.500 Neut % (Auto) 71.1 H Lymph % (Auto) 22.3 [place] % (Auto) 4.6 Eos % (Auto) 1.0 Baso % (Auto) 0.5 Absolute Neuts (auto) 7.9 H Absolute Lymphs (auto) 2.46 Nucleated RBC % 0 Sodium 136 Potassium 4.0 Chloride 103 Carbon Dioxide 25.0 Anion Gap 8 BUN 12 Creatinine 0.69 Estim Creat Clear Calc 88.75 Est GFR (MDRD) Af Amer 117 Est GFR (MDRD) Non-Af 97 BUN/Creatinine Ratio 17.5 Glucose 232 H Lactic Acid 1.8 Calcium 9.1 Troponin I High Sens 5 Radiography Diagnostic Testing: Clinical Impression(s) from Imaging Studies Chest X-Ray 07/14/22 09:27 IMPRESSION: No acute cardiopulmonary abnormality. No interval change. Electronically Signed: Jabier Birch MD at 10:23 EST , 1 view chest x-ray obtained interpreted by myself no acute disease process without evidence of infiltrate or pneumothorax. Radiology in agreement. EKG Initial EKG: Attestation: I personally reviewed and interpreted this EKG as follows: Comments: Sinus rhythm with a ventricular rate of 84 bpm with no acute ST segment changes Prior EKG tracings: available for review Prior: Unchanged Treatment and Re-Evaluation :: Patient received a DuoNeb aerosol which clinically did not improve her symptoms. Minimal wheezing on exam. Discharge Plan Triage Chief Complaint: Shortness of Breath ED Provider: Ancelmo Ribeiro Dx/Rx/DC Orders Clinical Impression: Pneumonia, Reactive airway disease, Chest pain Instructions: ED Chest Pain, Uncertain Cause, ED Pneumonia (Adult), Asthma Prescriptions: New prednisone 20 mg tablet 20 mg PO BID Qty: 10 0RF No Action (DME) Handicap Placard See Rx Instructions .ROUTE .MEDSUPPLY Qty: 1 0RF Rx Instructions: As directed, length of time 3 years pantoprazole 40 mg tablet,delayed release (DR/EC) 40 mg PO BID Qty: 180 1RF ibuprofen 800 mg tablet 800 mg PO Q8H amlodipine 5 mg tablet 5 mg PO DAILY Qty: 60 1RF duloxetine 30 mg capsule,delayed release(DR/EC) 30 mg PO BID Qty: 60 1RF lorazepam [Ativan] 0.5 mg tablet 0.5 mg PO DAILY PRN (Reason: anxiety) Qty: 10 0RF fluticasone propionate [Flonase Allergy Relief] 50 mcg/actuation spray,suspension 2 spray intranasal DAILY Qty: 16 0RF Rx Instructions: administer into each nostril phenylephrine HCl 10 mg tablet 10 mg PO Q4H PRN (Reason: nasal congestion) 7 Days Qty: 30 0RF albuterol sulfate 90 mcg/actuation aerosol powdr breath activated 2 inh INHALATION Q4H PRN (Reason: Sob &/Or Wheezing) Qty: 1 3RF doxycycline hyclate 100 mg tablet 100 mg PO BID Qty: 20 0RF Primary Care Provider: Ezequiel Lepe Referrals: Ezequiel Lepe MD [Primary Care Provider] - Activity Restrictions/Additional Instructions: Follow-up with your primary care physician or rental car ferry driver within next 3 to 5 days. Disposition Disposition: Home, Self Care
[2022-07-14 09:32] VITALS: O2SAT 96
[2022-07-14 09:39] VITALS: BP 184/102; PULSE 82; RESP 20; TEMP 36.3; O2SAT 98
[2022-07-14] MEDS: Ipratropium/Albuterol Sulfate 3 ML AMPUL.NEB INHALATION (09:39)
[2022-07-14 09:40] VITALS: PULSE 81; RESP 23; O2SAT 97
[2022-07-14 09:47] LABS: Absolute Lymphocyte Count 2.46 X10^3/uL (0.83-4.51); Absolute Neutrophil Count 7.9 X10^3/uL (2.0-7.7); Basophil# 0.05 X10^3/uL; Basophil% 0.5 % (0-1); Eosinophil# 0.11 X10^3/uL; Hematocrit 42.5 % (37-47); Hemoglobin 14.1 g/dL (12.0-15.0); Lymphocyte # 2.46 X10^3/ul (0.83-4.51); Lymphocyte % 22.3 % (19-41); Mean Corp Hgb Conc 33.2 g/dL (32-36); Mean Corpuscular Hgb 29.4 pg (27.0-32.0); Mean Corpuscular Volume 88.5 fL (81-99); Mean Platelet Vol. 10.4 fl (6.2-12.0); Monocyte# 0.51 X10^3/uL; Monocyte% 4.6 % (0-10); NRBC Flagged by Analyzer 0 % (0-5); Neutrophil # 7.85 X10^3/uL (2.7-7.7); Neutrophil % 71.1 % (47-70); Platelet Count 286 K/mm3 (150-450); RBC Distribution Width CV 13.2 % (11.6-14.6); RBC Distribution Width SD 42.9 fl (35.1-43.9)
[2022-07-14] MEDS: 0.9% Normal Saline 1,000 ML 150 ML IV (09:51)
[2022-07-14] MEDS: MethylPREDNISolone 125 MG/2 ML Vial 60 MG IV (09:51)
[2022-07-14 10:03] LABS: Anion Gap 8 (5-15); BUN 12 mg/dL (7-18); BUN/Creat Ratio 17.5 RATIO (10-20); Calcium,Total 9.1 mg/dL (8.5-10.1); Chloride 103 mmol/L (98-107); Creatinine, Serum 0.69 mg/dL (0.55-1.02); EST Glomerular Filtration Rate 97 mL/min (>60); Est Glom Filt Rate - Afr Amer 117 mL/min (>60); Estimated Creatinine Clearance 88.75 ml/min; Glucose 232 mg/dL (74-106); Sodium Level 136 mmol/L (136-145); Troponin-I HS 5 pg/mL (3.0-54.0)
[2022-07-14 10:51] LABS: Lactic Acid 1.8 mmol/L (0.4-1.9)
== END 2022-07-14 11:41 | disposition home or self-care (01) ==
PROVIDERS: Emergency Provider Emergency Medicine; PCP Internal Medicine; Visit Provider Emergency Medicine
DX: J18.9 Pneumonia, unspecified organism (principal); J45.909 Unspecified asthma, uncomplicated; F17.210 Nicotine dependence, cigarettes, uncomplicated; I10 Essential (primary) hypertension; Z79.52 Long term (current) use of systemic steroids
CPT/HCPCS: 71045; 80048; 83605; 84484; 85025; 87040; 87149; 87186; 93005; 94640; 96361; 96374; 99283; J7030; A4216

== ENCOUNTER → 2022-07-31 | Outpatient (CLI) | payer MEDICARE, MEDICAID, SELFPAY ==
--- NOTE | 2022-08-01 07:28 | PFT ---
INTRODUCTION: The patient is a 47-year-old female that presents for pulmonary function studies secondary to a diagnosis of nicotine dependency. Respiratory therapy reported good patient effort. Bronchodilators were used during testing. INTERPRETATION: Forced expiration spirometry demonstrates the presence of a mild large airways obstructive ventilatory defect. There was no significant response to aerosolized bronchodilators. Spirograms are of good quality and plateau gradually indicating slow emptying of the lungs. Body plus tomography was performed and revealed an elevated RV to 126% of predicted, indicative of underlying air trapping. Diffusing capacity by single breath CO was reduced to 58% of predicted. IMPRESSION: Irreversible mild large airways obstructive ventilatory defect with associated air trapping and symmetric reduction in diffusing capacity.
== END | disposition home or self-care (01) ==
PROVIDERS: PCP Internal Medicine; Referring Provider Internal Medicine Critical Care Medicine; Visit Provider Internal Medicine Critical Care Medicine
DX: F17.210 Nicotine dependence, cigarettes, uncomplicated (principal)
CPT/HCPCS: 94060; 94726; 94729

== ENCOUNTER 2022-09-14 08:32 | Emergency (ER) | payer MEDICARE, MEDICAID, SELFPAY ==
[2022-09-14 08:33] VITALS: BP 147/87; PULSE 131; RESP 24; TEMP 36.4; O2SAT 99; BMI 51.7
--- NOTE | 2022-09-14 08:47 | ED.VIS.GI ---
HPI HPI - GI History of Present Illness Chief Complaint: Abd Pain Informant: patient Abdominal Pain/Flank Pain Onset: Weeks (1) Context: Gradual Onset Timing: Continuous Quality: Burning and Sharp Location: Epigastric Worsened by: Nothing Relieved by: Nothing Nausea/Vomiting/Emesis GI Symptom: Positive for Nausea and Vomiting Onset: Weeks (1) Quality: Positive for Nonbilious; Negative for Blood streaks, Coffee ground or Hematemesis Severity: Severe Diarrhea/Melena/Hematochezia GI Symptom: Positive for Diarrhea; Negative for Melena or Hematochezia Onset: Weeks (1) Stool Quality: Positive for Watery Associated Symptoms Associated Symptoms: Negative for Dysuria, Frequency or Hematuria Narrative Narrative: Patient presents with abdominal pain that has been constant for the past week. Patient states her pain is over the epigastric area and is constant. Patient describes it as sharp and burning. Patient states nothing makes it better nothing makes it worse. Patient admits to some nausea and vomiting. Patient states she is unable to keep anything down. Patient denies any hematemesis or coffee-ground emesis. Patient admits to some watery diarrhea. Patient denies any melena or hematochezia. Patient denies any urinary complaints. Patient states she did have a fever yesterday of 101. Patient denies any radiation of the pain into her back. Patient states she does have chronic back pain but denies any new or different back pain. [facility] Medical History Abdominal pain Abdominal wall abscess Anxiety Anxiety and depression Arthritis Asthma BiPAP (biphasic positive airway pressure) dependence Bladder disease Bronchitis Cancer of left kidney Cervical radiculopathy Chronic back pain Chronic cough Chronic neck and back pain COPD (chronic obstructive pulmonary disease) COPD (chronic obstructive pulmonary disease) Costochondritis Depression Depression with anxiety Diarrhea Diarrhea Dizziness Fatigue Fatigue Fatty stools Gastric reflux Gastroenteritis Generalized anxiety disorder GERD (gastroesophageal reflux disease) H/O emotional problems Headache History of echocardiogram History of edema History of hiatal hernia History of mononucleosis History of renal disease History of stress test History of ulceration HTN (hypertension) HTN (hypertension) Incontinence Intertriginous dermatitis associated with moisture Intestinal ulcer Left ankle pain Lesion of bladder Limb weakness Loose, teeth Lung disease Mild chronic gastritis Nausea and vomiting MARGARITA (obstructive sleep apnea) MARGARITA (obstructive sleep apnea) MARGARITA (obstructive sleep apnea) Overactive bladder Overactive bladder Pulmonary hypertension Shortness of breath Shoulder pain Sleep apnea Smoker SOB (shortness of breath) Stress incontinence Stress incontinence Type 2 diabetes mellitus UTI (urinary tract infection) Venous insufficiency of both lower extremities Wears glasses Home Medications Handicap Placard #1 ea 11/28/20 [Rx Last Taken Unknown] pantoprazole 40 mg tablet,delayed release 40 mg PO BID #180 tabs 12/19/21 [Rx Last Taken 01/18/22 07:00] ibuprofen 800 mg tablet 800 mg PO Q8H 01/31/22 [History Last Taken Unknown] albuterol sulfate 90 mcg/actuation breath activated powder inhaler 2 inh inhalation Q4H PRN Sob &/Or Wheezing #1 ea 03/21/22 [Rx Last Taken Unknown] blood sugar diagnostic (FreeStyle Test strips) #50 ea 08/10/22 [Rx Last Taken Unknown] blood-glucose meter (FreeStyle System Kit) #1 ea 08/10/22 [Rx Last Taken Unknown] escitalopram oxalate 5 mg tablet (Lexapro) 5 mg PO DAILY #90 tabs 08/10/22 [Rx Last Taken Unknown] lancets 28 gauge (FreeStyle Lancets) #50 ea 08/10/22 [Rx Last Taken Unknown] lisinopril 20 mg-hydrochlorothiazide 25 mg tablet 1 tab PO DAILY #90 tabs 08/10/22 [Rx Last Taken Unknown] metformin 500 mg tablet 500 mg PO DAILY #90 tabs 08/10/22 [Rx Last Taken Unknown] lisinopril 20 mg tablet 20 mg PO HS #90 tabs 08/17/22 [Rx Last Taken Unknown] prednisone 10 mg tablet 10 mg PO QDAY #30 tabs 08/29/22 [Rx Last Taken Unknown] semaglutide 1 mg/dose (4 mg/3 mL) subcutaneous pen injector (Ozempic) 1 mg (0.75 mL) subcut QWEEK #3 mL 09/07/22 [Rx Last Taken Unknown] Allergy/AdvReac Type Severity Reaction Status Date / Time cefaclor [From Ceclor] Allergy Hives Verified 09/14/22 08:33 ciprofloxacin [From Cipro] Allergy Itching Verified 09/14/22 08:33 erythromycin base Allergy Upset Verified 09/14/22 08:33 [Erythromycin Base] Stomach moxifloxacin HCl Allergy Hives Verified 09/14/22 08:33 [From Avelox] Penicillins Allergy Upset Verified 09/14/22 08:33 Stomach sulfamethoxazole Allergy Unknown Verified 09/14/22 08:33 [From Bactrim] trimethoprim [From Bactrim] Allergy Unknown Verified 09/14/22 08:33 Family History Mother CVA (cerebral vascular accident) Thyroid disorder Ulcer Arthritis Father Diabetes Heart disease Myocardial infarction Arthritis Hypertension High cholesterol Skin cancer Son , age 17 Asthma Large B-cell lymphoma Other Anxiety Melanoma Respiratory disease Surgical History History of ankle surgery History of colonoscopy History of cystoscopy History of cystoscopy History of esophagogastroduodenoscopy (EGD) (~01/20/20) History of lymph node biopsy History of partial hysterectomy History of sinus surgery History of tonsillectomy Hx of cholecystectomy Hx of cystoscopy Hx of cystoscopy Hx of hysterectomy Hx of nasal septoplasty Hx of prior ablation treatment Hx of tonsillectomy Social History household members: children Smoking Status: Current every day smoker tobacco type: cigarettes Tobacco: How many years used: 25 alcohol intake: never substance use type: does not use what type of physical activity do you participate in: none do you feel safe at home: Yes ROS ROS ED Constitutional Constitutional ED: Denies chills or fever(s) Eyes Eyes: Denies blurry vision or change in vision ENT ENT ED: Denies rhinorrhea or sore throat Cardiovascular Cardiovascular: Denies chest pain or palpitations Respiratory/Chest Respiratory/Chest: Denies cough or dyspnea Gastrointestinal Gastrointestinal: Reports abdominal pain, diarrhea, nausea and vomiting Genitourinary Genitourinary ED: Denies dysuria or hematuria Musculoskeletal Musculoskeletal: Denies back pain or neck pain Integumentary Denies abscess or rash Neurologic Neurologic: Denies headache(s) or weakness Allergic/Immunologic Allergic/Immunologic ED: Denies mouth swelling or urticaria EXAM Physical Exam Const Vital Signs: 09/14/22 08:33 09/14/22 10:33 09/14/22 12:07 Temperature 97.6 F L Temperature Source Temporal Pulse Rate 131 H 75 71 Respiratory Rate 24 H 16 18 Blood Pressure 147/87 H 146/68 H Blood Pressure Mean 107 94 Pulse Ox 99 97 96 Oxygen Delivery Method Room Air Room Air Room Air Positive well nourished, well developed and obese General Appearance ED: well developed Nutritional Appearance: obese HEENT Reports moist mucous membranes Neck supple and no JVD Resp normal respiratory effort and clear to auscultation bilaterally Cardio regular rhythm and no murmurs Rate: tachycardic GI normal to inspection, nondistended, normoactive bowel sounds Palpation: soft and tender epigastric, LUQ and RUQ; Negative for guarding or rebound tenderness present Extremity normal to inspection General Extremety ED: Negative for edema or tenderness General Extremity: Negative for edema Neuro oriented x3, CN's II-XII intact bilaterally and no sensory deficits noted Sensorium / Orientation: alert Motor Exam: strength 5/5 throughout Psych mental status grossly normal Skin no rashes or lesions noted MDM MDM MDM Narrative Medical decision making narrative: Differential diagnosis includes gastritis, pancreatitis, GERD, bowel obstruction, perforation, gastroenteritis, urinary tract infection, and ureteral calculus. CBC will be obtained to assess for leukocytosis and anemia. Comprehensive metabolic profile will be obtained to assess for hepatic function, renal function, and electrolyte abnormality. Urinalysis will be obtained to assess for urinary tract infection and hematuria. Lipase will be obtained to assess for pancreatitis. CT scan of the abdomen pelvis will be obtained to assess for bowel obstruction, perforation, pancreatitis, and ureteral calculus. Lab Data Attestation: I reviewed the patient's lab results. Lab results narrative: CBC was reviewed and shows a slight leukocytosis of 13.3. Comprehensive metabolic profile was reviewed. Creatinine was slightly elevated at 1.13 and BUN was 22. Glucose was slightly elevated at 151. Remainder was essentially within normal limits. Urinalysis was reviewed. There is no evidence of urinary tract infection or hematuria. Labs: Laboratory Results - last 24 hr 09/14/22 09/14/22 09/14/22 09:00 09:05 09:05 WBC 13.3 H RBC 5.33 Hgb 15.5 H Hct 46.9 MCV 88.0 MCH 29.1 MCHC 33.0 RDW Std Deviation 40.4 RDW Coeff of Saeid 12.5 Plt Count 330 MPV 10.4 Immature Gran % (Auto) 0.600 Neut % (Auto) 75.9 H Lymph % (Auto) 16.[address] [place] % (Auto) 4.4 Eos % (Auto) 2.0 Baso % (Auto) 0.3 Absolute Neuts (auto) 10.1 H Absolute Lymphs (auto) 2.23 Nucleated RBC % 0 Sodium 137 Potassium 3.8 Chloride 103 Carbon Dioxide 23.0 Anion Gap 11 BUN 22 H Creatinine 1.13 H Estim Creat Clear Calc 54.19 Est GFR (MDRD) Af Amer 66 Est GFR (MDRD) Non-Af 54 L BUN/Creatinine Ratio 19.5 Glucose 151 H Calcium 9.7 Total Bilirubin 0.40 AST 34 ALT 51 Alkaline Phosphatase 123 H Total Protein 8.0 Albumin 3.7 Globulin 4.3 H Albumin/Globulin Ratio 0.9 Lipase 27 Urine Color Yellow Urine Clarity Sl. Cloudy Urine pH 6.0 Ur Specific [place] 1.020 Urine Protein 30 H Urine Glucose (UA) Normal Urine Ketones 5 H Urine Occult Blood 25 H Urine Nitrite Negative Urine Bilirubin Negative Urine Urobilinogen Normal Ur Leukocyte Esterase 25 H Urine RBC 0-5 SEEN Urine WBC 0-5 SEEN Ur Squamous Epith Cells 0-5 SEEN Urine Bacteria 1+ Fine Granular Casts 0-5 SEEN Urine Mucus 0 SEEN Radiography Diagnostic Testing: Clinical Impression(s) from Imaging Studies Abdomen/Pelvis CT 09/14/22 08:55 IMPRESSION: Hepatomegaly and diffuse fatty infiltration of the liver. Stable 1.8 cm x 1.6 cm fat-containing nodule in the peripheral lateral aspect of the right lower lobe. Electronically Signed: Michael Jacome MD at 11:34 EDT , CT scan of the abdomen pelvis was obtained. There is hepatomegaly and fatty infiltration of the liver. There is no evidence of obstruction or perforation. There is no free fluid or free air. This was interpreted by the radiologist and was also independently reviewed by myself. Treatment and Re-Evaluation :: Patient was given IV fluids, morphine, and Zofran. Patient was still having some nausea and pain. Patient was given a repeat dose of morphine and a dose of Reglan and Benadryl. Patient is feeling better on reevaluation. Patient was advised of her findings. Patient was instructed to follow-up with her primary care physician in 5 to 7 days. Patient was instructed return if worse in any way. Patient understood and was agreeable with the plan. All questions were answered. Discharge Plan Triage Chief Complaint: Abd Pain Other Complaint: Nausea/Vomiting/Diarrhea ED Provider: Boone Moreau Dx/Rx/DC Orders Clinical Impression: Abdominal pain, Nausea, vomiting and diarrhea, Morbid obesity, Tobacco abuse Instructions: ED Abdominal Pain Unkn Cause Fem, ED Vomiting and Diarrhea ... Prescriptions: No Action (DME) Handicap Placard See Rx Instructions .ROUTE .MEDSUPPLY Qty: 1 0RF Rx Instructions: As directed, length of time 3 years pantoprazole 40 mg tablet,delayed release (DR/EC) 40 mg PO BID Qty: 180 1RF ibuprofen 800 mg tablet 800 mg PO Q8H metformin 500 mg tablet 500 mg PO DAILY Qty: 90 1RF (DME) FreeStyle Test Strip See Rx Instructions .ROUTE .MEDSUPPLY Qty: 50 11RF Rx Instructions: check blood glucose daily (DME) blood-glucose meter [FreeStyle System Kit] Kit See Rx Instructions .ROUTE .MEDSUPPLY Qty: 1 0RF Rx Instructions: check blood glucose daily for type 2 DM (DME) lancets [FreeStyle Lancets] 28 gauge misc See Rx Instructions .ROUTE .MEDSUPPLY Qty: 50 11RF Rx Instructions: Check blood glucose daily for type 2 DM escitalopram oxalate [Lexapro] 5 mg tablet 5 mg PO DAILY Qty: 90 1RF lisinopril-hydrochlorothiazide 20-25 mg tablet 1 tab PO DAILY Qty: 90 1RF Ozempic 1 mg/dose (4 mg/3 mL) pen injector 1 mg subcut QWEEK Qty: 3 2RF albuterol sulfate 90 mcg/actuation aerosol powdr breath activated 2 inh INHALATION Q4H PRN (Reason: Sob &/Or Wheezing) Qty: 1 3RF lisinopril 20 mg tablet 20 mg PO HS Qty: 90 1RF prednisone 10 mg tablet 10 mg PO QDAY Qty: 30 0RF Rx Instructions: take 4 tabs for three days, then 3 tabs for three days, then 2 tabs for three days, then 1 tab for 3 days Primary Care Provider: Ezequiel Lepe Referrals: Ezequiel Lepe MD [Primary Care Provider] - 5-7 Days Disposition Disposition: Home, Self Care
--- NOTE | 2022-09-14 08:55 | CT_ITS ---
STUDY: CT ABDOMEN AND PELVIS WITH CONTRAST REASON FOR EXAM: Female, 47 years old. Abdominal pain -- IV PO Contrast. Nausea and vomiting and diarrhea. Elevated white blood cell count. History of renal cell carcinoma. RADIATION DOSAGE (If Supplied By Facility): CTDIvol = ( 15.42 ) mGy, DLP = ( 1305.09 ) mGycm TECHNIQUE: Transaxial images were obtained from the dome of the diaphragm to the symphysis pubis with oral contrast. Oral and amp; IV Gastrografin and amp; 100mL Isovue-300 was administered. Sagittal and coronal images were reconstructed. Individualized dose optimization techniques were used for this CT. COMPARISON: Comparison is made with prior study dated January 23, 2022. FINDINGS: Stable fat-containing 1.8 cm x 1.6 cm nodule in the peripheral lateral aspect of the right lower lobe. The visualized portions of the heart are within normal limits. There is decreased attenuation of the liver consistent with steatosis. Hepatomegaly. The patient is status post cholecystectomy. Normal spleen. Normal pancreas. Normal bilateral adrenal glands. Normal right kidney. Normal left kidney. Normal visualized stomach. Normal small intestine. There are scattered colonic diverticula consistent with diverticulosis. The appendix is visualized and appears normal. There is scattered atherosclerotic calcification of the abdominal aorta, without a demonstrated aneurysm. Normal inferior vena cava. Normal retroperitoneum. Normal urinary bladder. There is absence of the uterus consistent with a prior hysterectomy. Normal abdominal wall. Normal osseous structures. CT/Abdomen/Pelvis WITH Contrast IMPRESSION: Hepatomegaly and diffuse fatty infiltration of the liver. Stable 1.8 cm x 1.6 cm fat-containing nodule in the peripheral lateral aspect of the right lower lobe. Electronically Signed: Michael Jacome MD at 11:34 EDT ,
[2022-09-14] MEDS: 0.9% Normal Saline 1,000 ML 1000 ML IV (09:03)
[2022-09-14] MEDS: Ondansetron 4 MG/2 ML Vial IV (09:04)
[2022-09-14] MEDS: Morphine 4 MG/ML Syringe IV ×2 (09:04→10:49)
[2022-09-14 09:14] LABS: Mucous, Urine 0 SEEN /hpf (<or=2+)
[2022-09-14 09:20] LABS: Absolute Lymphocyte Count 2.23 X10^3/uL (0.83-4.51); Absolute Neutrophil Count 10.1 X10^3/uL (2.0-7.7); Basophil# 0.04 X10^3/uL; Basophil% 0.3 % (0-1); Eosinophil# 0.26 X10^3/uL; Hematocrit 46.9 % (37-47); Hemoglobin 15.5 g/dL (12.0-15.0); Lymphocyte # 2.23 X10^3/ul (0.83-4.51); Lymphocyte % 16.8 % (19-41); Mean Corpuscular Hgb 29.1 pg (27.0-32.0); Mean Platelet Vol. 10.4 fl (6.2-12.0); Monocyte# 0.59 X10^3/uL; Monocyte% 4.4 % (0-10); NRBC Flagged by Analyzer 0 % (0-5); Neutrophil # 10.07 X10^3/uL (2.7-7.7); Neutrophil % 75.9 % (47-70); Platelet Count 330 K/mm3 (150-450); RBC Distribution Width CV 12.5 % (11.6-14.6); RBC Distribution Width SD 40.4 fl (35.1-43.9); Red Blood Count 5.33 M/mm3 (4.2-5.4); White Blood Count 13.3 K/mm3 (4.4-11.0)
[2022-09-14 09:23] LABS: Color, Urine Yellow (Yellow); Glucose, Dipstick Normal (Normal); Ketone-Dipstick 5 mg/dl (Negative); Leukocyte Esterase-Dipstick 25 /ul (Negative); Nitrite-Dipstick Negative (Negative); Occult Blood-Urine 25 /ul (Negative); Protein-Dipstick 30 mg/dl (Negative); Urine Bilirubin Dipstick Negative (Negative); Urine Clarity Sl. Cloudy (Clear); Urine Urobilinogen Normal (Normal)
[2022-09-14 09:29] LABS: Bacteria 1+ /hpf (None Seen); Red Blood Cells-Urine 0-5 SEEN /hpf (0-5); Squamous Epithelial Cells - UA 0-5 SEEN /hpf (5-10); White Blood Cells 0-5 SEEN /hpf (0-5)
[2022-09-14 09:30] LABS: Fine Granular Cast- Urine 0-5 SEEN /lpf (0-5)
[2022-09-14 09:37] LABS: ALB/GLOB Ratio 0.9 RATIO (0.9-2.4); AST(SGOT) 34 U/L (15-37); Alanine Aminotransfer ALT/SGPT 51 U/L (13-56); Albumin, Serum 3.7 g/dL (3.2-5.0); Alkaline Phosphatase 123 U/L (45-117); Anion Gap 11 (5-15); BUN 22 mg/dL (7-18); BUN/Creat Ratio 19.5 RATIO (10-20); Calcium,Total 9.7 mg/dL (8.5-10.1); Chloride 103 mmol/L (98-107); Creatinine, Serum 1.13 mg/dL (0.55-1.02); EST Glomerular Filtration Rate 54 mL/min (>60); Est Glom Filt Rate - Afr Amer 66 mL/min (>60); Estimated Creatinine Clearance 54.19 ml/min; Globulin 4.3 g/dL (2.2-4.2); Glucose 151 mg/dL (74-106); Lipase 27 U/L (13-75); Potassium 3.8 mmol/L (3.5-5.1); Sodium Level 137 mmol/L (136-145)
[2022-09-14 10:33] VITALS: BP 146/68; PULSE 75; RESP 16; O2SAT 97
[2022-09-14] MEDS: DiphenhydrAMINE 50 MG/ML Syringe 25 MG IV (10:49)
[2022-09-14] MEDS: Metoclopramide 10 MG/2 ML Vial IV (10:49)
[2022-09-14 12:07] VITALS: BP 102/79; PULSE 71; RESP 18; O2SAT 96
[2022-09-14 12:13] VITALS: PULSE 71; RESP 18; O2SAT 96
== END 2022-09-14 12:19 | disposition home or self-care (01) ==
PROVIDERS: Emergency Provider Emergency Medicine; PCP Internal Medicine; Visit Provider Emergency Medicine
DX: R10.13 Epigastric pain (principal); J44.9 Chronic obstructive pulmonary disease, unspecified; E11.65 Type 2 diabetes mellitus with hyperglycemia; E66.01 Morbid (severe) obesity due to excess calories; R11.2 Nausea with vomiting, unspecified; M54.9 Dorsalgia, unspecified; G89.29 Other chronic pain; I10 Essential (primary) hypertension; R19.7 Diarrhea, unspecified; G47.33 Obstructive sleep apnea (adult) (pediatric); F17.210 Nicotine dependence, cigarettes, uncomplicated; Z79.84 Long term (current) use of oral hypoglycemic drugs; Z79.899 Other long term (current) drug therapy
CPT/HCPCS: 74177; 80053; 81001; 83690; 85025; 96361; 96374; 96375; 96376; 99283; J7030; J7050; Q9967; A4216; J2405

== ENCOUNTER 2022-09-16 11:18 | Emergency (ER) | payer MEDICARE, MEDICAID, SELFPAY ==
[2022-09-16 11:19] VITALS: BP 147/78; PULSE 118; RESP 20; TEMP 36.1; O2SAT 97; BMI 51.9
[2022-09-16] MEDS: Ondansetron 4 MG/2 ML Vial IV (11:51)
[2022-09-16] MEDS: 0.9% Normal Saline 1,000 ML 1000 ML IV (11:51)
[2022-09-16] MEDS: Morphine 4 MG/ML Syringe IV (11:52)
[2022-09-16] MEDS: Mag Hydrox/Al Hydrox/Simeth 30 ML UDC PO (11:52)
--- NOTE | 2022-09-16 11:54 | EX.ED.DYSGE1 ---
HPI <VANITA Ramos - Last Filed: 09/16/22 13:16> History of Present Illness Chief Complaint: Abd Pain Narrative Narrative: Patient is a 47-year-old female with history of obesity, arthritis, generalized anxiety disorder, type 2 diabetes, patient presents to the emergency department for the second time for this upper abdominal pain, epigastric pain. Patient states that she took Ozempic for total of 5 doses. She was seen here on September 14, 2022. She had a full abdominal work-up including CT scan, abdominal labs as well as urine, this examination showed no acute findings. Patient states that the pain is consistent. She states she is continue to have nausea and vomiting. She denies any fever or chills. She does complain of more back pain she also has a cough today. She has not taken for the last 9 days. Patient denies any blood in stool, blood in vomit. PFS <VANITA Ramos - Last Filed: 09/16/22 13:16> [facility] Medical History Abdominal pain Abdominal wall abscess Anxiety Anxiety and depression Arthritis Asthma BiPAP (biphasic positive airway pressure) dependence Bladder disease Bronchitis Cancer of left kidney Cervical radiculopathy Chronic back pain Chronic cough Chronic neck and back pain COPD (chronic obstructive pulmonary disease) COPD (chronic obstructive pulmonary disease) Costochondritis Depression Depression with anxiety Diarrhea Diarrhea Dizziness Fatigue Fatigue Fatty stools Gastric reflux Gastroenteritis Generalized anxiety disorder GERD (gastroesophageal reflux disease) H/O emotional problems Headache History of echocardiogram History of edema History of hiatal hernia History of mononucleosis History of renal disease History of stress test History of ulceration HTN (hypertension) HTN (hypertension) Incontinence Intertriginous dermatitis associated with moisture Intestinal ulcer Left ankle pain Lesion of bladder Limb weakness Loose, teeth Lung disease Mild chronic gastritis Nausea and vomiting MARGARITA (obstructive sleep apnea) MARGARITA (obstructive sleep apnea) MARGARITA (obstructive sleep apnea) Overactive bladder Overactive bladder Pulmonary hypertension Shortness of breath Shoulder pain Sleep apnea Smoker SOB (shortness of breath) Stress incontinence Stress incontinence Type 2 diabetes mellitus UTI (urinary tract infection) Venous insufficiency of both lower extremities Wears glasses Home Medications Handicap [place] #1 ea 11/28/20 [Rx Last Taken Unknown] pantoprazole 40 mg tablet,delayed release 40 mg PO BID #180 tabs 12/19/21 [Rx Last Taken 01/18/22 07:00] ibuprofen 800 mg tablet 800 mg PO Q8H 01/31/22 [History Last Taken Unknown] albuterol sulfate 90 mcg/actuation breath activated powder inhaler 2 inh inhalation Q4H PRN Sob &/Or Wheezing #1 ea 03/21/22 [Rx Last Taken Unknown] blood sugar diagnostic (FreeStyle Test strips) #50 ea 08/10/22 [Rx Last Taken Unknown] blood-glucose meter (FreeStyle System Kit) #1 ea 08/10/22 [Rx Last Taken Unknown] escitalopram oxalate 5 mg tablet (Lexapro) 5 mg PO DAILY #90 tabs 08/10/22 [Rx Last Taken Unknown] lancets 28 gauge (FreeStyle Lancets) #50 ea 08/10/22 [Rx Last Taken Unknown] lisinopril 20 mg-hydrochlorothiazide 25 mg tablet 1 tab PO DAILY #90 tabs 08/10/22 [Rx Last Taken Unknown] metformin 500 mg tablet 500 mg PO DAILY #90 tabs 08/10/22 [Rx Last Taken Unknown] lisinopril 20 mg tablet 20 mg PO HS #90 tabs 08/17/22 [Rx Last Taken Unknown] prednisone 10 mg tablet 10 mg PO QDAY #30 tabs 08/29/22 [Rx Last Taken Unknown] semaglutide 1 mg/dose (4 mg/3 mL) subcutaneous pen injector (Ozempic) 1 mg (0.75 mL) subcut QWEEK #3 mL 09/07/22 [Rx Last Taken Unknown] nitrofurantoin monohydrate/macrocrystals 100 mg capsule (Macrobid) 100 mg PO BID #10 caps 09/16/22 [Rx Last Taken Unknown] promethazine 25 mg tablet 25 mg PO TID PRN nausea and vomiting #14 tabs 09/16/22 [Rx Last Taken Unknown] Allergy/AdvReac Type Severity Reaction Status Date / Time cefaclor [From Ceclor] Allergy Hives Verified 09/16/22 11:20 ciprofloxacin [From Cipro] Allergy Itching Verified 09/16/22 11:20 erythromycin base Allergy Upset Verified 09/16/22 11:20 [Erythromycin Base] Stomach moxifloxacin HCl Allergy Hives Verified 09/16/22 11:20 [From Avelox] Penicillins Allergy Upset Verified 09/16/22 11:20 Stomach sulfamethoxazole Allergy Unknown Verified 09/16/22 11:20 [From Bactrim] trimethoprim [From Bactrim] Allergy Unknown Verified 09/16/22 11:20 Family History Mother CVA (cerebral vascular accident) Thyroid disorder Ulcer Arthritis Father Diabetes Heart disease Myocardial infarction Arthritis Hypertension High cholesterol Skin cancer Son , age 17 Asthma Large B-cell lymphoma Other Anxiety Melanoma Respiratory disease Surgical History History of ankle surgery History of colonoscopy History of cystoscopy History of cystoscopy History of esophagogastroduodenoscopy (EGD) (~01/20/20) History of lymph node biopsy History of partial hysterectomy History of sinus surgery History of tonsillectomy Hx of cholecystectomy Hx of cystoscopy Hx of cystoscopy Hx of hysterectomy Hx of nasal septoplasty Hx of prior ablation treatment Hx of tonsillectomy Social History household members: children Smoking Status: Current every day smoker tobacco type: cigarettes Tobacco: How many years used: 25 alcohol intake: never substance use type: does not use what type of physical activity do you participate in: none do you feel safe at home: Yes ROS <VANITA Ramos - Last Filed: 09/16/22 13:16> ROS ED ROS Narrative Constitutional: Negative for fever, chills, weight loss, weakness Eyes: Negative for vision loss, vision change, double vision ENT: Negative for any sore throat, ear pain, congestion Cardiovascular: Negative for any chest pain, tightness, palpitations Respiratory: Negative for any cough, sputum production, hemoptysis, dyspnea, dyspnea on exertion, orthopnea Gastrointestinal: Negative for any , diarrhea, constipation, blood in stool, blood in vomit. Positive for abdominal pain, nausea and vomiting : Negative for any urinary frequency, dysuria, retention, blood in urine Muscle skeletal: Negative for any muscle joint pain, stiffness, myalgias, arthralgias, neck pain, back pain Neurological: Negative for any headache, syncope, numbness or tingling, dizziness Skin: Negative for any rashes, lumps, itching, abrasions, lacerations Psychiatric: Negative for any depression, anxiety, stress, suicidal ideation, homicidal ideation Hematologic: Negative for any easy bruising, excessive bruising, easy bleeding Allergies: Negative for any eczema, hives, rash EXAM <VANITA Ramos - Last Filed: 09/16/22 13:16> Physical Exam Narrative Exam Narrative: Vital signs reviewed. Patient is tearful, rocking back and forth on initial exam. HEET: Head normocephalic atraumatic, TMs clear bilaterally. Posterior pharynx is clear, moist mucous membranes. Nares clear bilaterally. Neck: Supple with no lymphadenopathy or tenderness. No signs of meningismus, negative jolt sign. Cardiac: Regular rate and rhythm no murmurs gallops or rubs, equal peripheral pulses bilaterally. Respiratory: Patient has bilateral expiratory wheeze, she does have a history of COPD and still smokes.. No chest tenderness. Abdomen: Soft, , nondistended. No abdominal bruit or pulsatile masses. No hepatosplenomegaly. Abdomen is large, it is difficult to get a good exam however she does have some tenderness in the epigastric area. No chest pain. She states it radiates to her back. She is also complaining of lower back pain. Extremities: No peripheral edema, no signs of gross trauma or deformity. Active full range of motion of all extremities. Neuro: Cranial nerves II through XII intact, no focal neurological deficits. Skin: Clean dry and intact with no rash, purpura, petechiae, vesicles or pustules. Backs/flank: No CVA tenderness, no midline spinal tenderness, no deformity. Psych: Normal mood and affect. No SI, HI or acute psychosis. Const Vital Signs: 09/16/22 11:19 09/16/22 13:21 Temperature 97 F L Temperature Source Temporal Pulse Rate 118 H 88 Respiratory Rate 20 H Blood Pressure 147/78 H Blood Pressure Mean 101 Pulse Ox 97 Oxygen Delivery Method Room Air Positive obese Nutritional Appearance: obese <Dr. Boone Moreau DO - Last Filed: 09/16/22 13:59> Physical Exam Const Vital Signs: 09/16/22 11:19 09/16/22 13:21 Temperature 97 F L Temperature Source Temporal Pulse Rate 118 H 88 Respiratory Rate 20 H Blood Pressure 147/78 H Blood Pressure Mean 101 Pulse Ox 97 Oxygen Delivery Method Room Air MDM <Tacho Duran CONFIGURATION SPECIALIST-C - Last Filed: 09/16/22 13:16> [facility] Lab Data Labs: Laboratory Results - last 24 hr 09/16/22 09/16/22 09/16/22 11:45 11:45 11:45 WBC 13.9 H RBC 5.05 Hgb 14.8 Hct 44.4 MCV 87.9 MCH 29.3 MCHC 33.3 RDW Std Deviation 40.7 RDW Coeff of Saeid 12.7 Plt Count 325 MPV 10.7 Immature Gran % (Auto) 0.400 Neut % (Auto) 67.2 Lymph % (Auto) 25.0 [place] % (Auto) 4.9 Eos % (Auto) 2.2 Baso % (Auto) 0.3 Absolute Neuts (auto) 9.4 H Absolute Lymphs (auto) 3.48 Nucleated RBC % 0 Sodium 136 Potassium 4.0 Chloride 102 Carbon Dioxide 24.0 Anion Gap 10 BUN 15 Creatinine 1.12 H Estim Creat Clear Calc 54.67 Est GFR (MDRD) Af Amer 66 Est GFR (MDRD) Non-Af 55 L BUN/Creatinine Ratio 13.4 Glucose 153 H Calcium 9.7 Total Bilirubin 0.30 AST 30 ALT 43 Alkaline Phosphatase 125 H Total Protein 7.8 Albumin 3.4 Globulin 4.4 H Albumin/Globulin Ratio 0.8 L Lipase 26 Urine Color Yellow Urine Clarity Sl. Cloudy Urine pH 6.5 Ur Specific [place] 1.010 Urine Protein 15 H Urine Glucose (UA) Normal Urine Ketones Negative Urine Occult Blood 25 H Urine Nitrite Positive H Urine Bilirubin Negative Urine Urobilinogen Normal Ur Leukocyte Esterase 25 H Urine RBC 0 SEEN Urine WBC 0 SEEN Ur Squamous Epith Cells 0-5 SEEN Urine Bacteria 2+ Urine Mucus 0 SEEN Treatment and Re-Evaluation :: Patient is tearful on initial examination, patient vital signs show some tachycardia, patient appears nontoxic. Patient did have a full abdominal work-up including a CT scan of the abdomen pelvis 2 days ago. At this time I am repeating laboratory values, administering pain medicine, getting the patient more comfortable. I will then have to reevaluate her. At this time, I do not feel a repeat CT scan is necessary. Patient had repeat laboratory values, patient CBC showed a leukocytosis of white plan at 13.9. Looking over the past, patient always seems to have a elevated white blood count 13.3 Patient's chemistries show improvement in creatinine of 1.12. Patient's blood sugar is 153, alkaline phosphatase 125 which is baseline. Lipase was negative. Patient's urinalysis was positive for infection, urine culture will be sent. She had 25 leukocyte Estrace, positive nitrates. Secondary to the patient's multiple allergies to antibiotics, the patient be started on Macrobid. She was given morphine, Zofran. She continued to have nausea, I did give her 10 of IV Reglan. 20 minutes after the Reglan, patient states she felt more anxious, she ordered the nurse to take out her IV. I did explain to her this could be a reaction to the Reglan, she was given IM dose of Benadryl. Patient was able to pass a p.o. challenge. She was started on Macrobid here she will place on Macrobid twice a day for 5 days. She is instructed to follow-up outpatient. At this time there is no evidence suspect any pancreatitis, intra-abdominal pathology. Patient will be diagnosed with urinary tract infection, will be placed on Macrobid as well as promethazine for home. Patient stable for discharge. <Dr. Boone Moreau, DO - Last Filed: 09/16/22 13:59> [facility] Narrative Medical decision making narrative: I have personally performed a face to face assessment of the patient and have reviewed the RUSLAN Note. I performed a substantive portion of the visit including all aspects of the following. My dupont findings include: History: Patient presents with abdominal pain that became worse today. Patient was seen here recently and had normal labs and CT scan done at that time. Patient states her pain came back approximately 12 hours after she was discharged. Patient states it is mainly over the upper abdomen. Patient denies any radiation of her pain. Patient denies any fevers or chills. Patient admits to some nausea and vomiting. Patient denies any diarrhea. Exam: Vital signs are stable except for mild tachycardia of 118. Patient is afebrile. Patient is in no acute distress. Oral mucosa is pink and moist. Neck is supple. Trachea is midline. There is no JVD. Heart was regular rate and rhythm. Lungs are clear and equal bilaterally. Abdomen is soft. Bowel sounds are normal. There is upper abdominal tenderness. There is no rebound or guarding noted. Cranial nerves II through XII are intact. There are no focal motor or sensory deficits noted. Medical Decision Making: Differential diagnosis includes pancreatitis, gastric ulcer, urinary tract infection, pyelonephritis, and gastritis. CBC will be obtained to assess for leukocytosis and anemia. Comprehensive metabolic profile will be obtained to assess for electrolyte abnormality, renal function, and hepatic function. Lipase will be obtained to assess for pancreatitis. Urinalysis will be obtained to assess for urinary tract infection. CBC was reviewed and shows a slight leukocytosis of 13.9. This is unchanged from previous result. Comprehensive metabolic profile was reviewed and was essentially within normal limits. Lipase was reviewed and was within normal limits. Urinalysis was reviewed. Leukocyte esterase was 25. There are positive nitrites. There is 2+ bacteria. There are 0 white blood cells noted. Urine culture was ordered. Patient was given a GI cocktail initially. Patient was also given Reglan and Benadryl. Patient was given morphine and Zofran initially. Patient was given a dose of Macrobid here. Patient was given prescription for Macrobid. Patient was instructed to follow-up with her primary care physician in 5 to 7 days. Patient understood and was agreeable with the plan. All questions were answered. Lab Data Labs: Laboratory Results - last 24 hr 09/16/22 09/16/22 09/16/22 11:45 11:45 11:45 WBC 13.9 H RBC 5.05 Hgb 14.8 Hct 44.4 MCV 87.9 MCH 29.3 MCHC 33.3 RDW Std Deviation 40.7 RDW Coeff of Saeid 12.7 Plt Count 325 MPV 10.7 Immature Gran % (Auto) 0.400 Neut % (Auto) 67.2 Lymph % (Auto) 25.0 [place] % (Auto) 4.9 Eos % (Auto) 2.2 Baso % (Auto) 0.3 Absolute Neuts (auto) 9.4 H Absolute Lymphs (auto) 3.48 Nucleated RBC % 0 Sodium 136 Potassium 4.0 Chloride 102 Carbon Dioxide 24.0 Anion Gap 10 BUN 15 Creatinine 1.12 H Estim Creat Clear Calc 54.67 Est GFR (MDRD) Af Amer 66 Est GFR (MDRD) Non-Af 55 L BUN/Creatinine Ratio 13.4 Glucose 153 H Calcium 9.7 Total Bilirubin 0.30 AST 30 ALT 43 Alkaline Phosphatase 125 H Total Protein 7.8 Albumin 3.4 Globulin 4.4 H Albumin/Globulin Ratio 0.8 L Lipase 26 Urine Color Yellow Urine Clarity Sl. Cloudy Urine pH 6.5 Ur Specific [place] 1.010 Urine Protein 15 H Urine Glucose (UA) Normal Urine Ketones Negative Urine Occult Blood 25 H Urine Nitrite Positive H Urine Bilirubin Negative Urine Urobilinogen Normal Ur Leukocyte Esterase 25 H Urine RBC 0 SEEN Urine WBC 0 SEEN Ur Squamous Epith Cells 0-5 SEEN Urine Bacteria 2+ Urine Mucus 0 SEEN Discharge Plan Triage Chief Complaint: Abd Pain ED Midlevel Provider: Tacho Duran ED Provider: Boone Moreau Dx/Rx/DC Orders Clinical Impression: Urinary tract infection, Acute epigastric pain Instructions: ED Cystitis Female Adult, ED Epigastric Pain Uncertain Cause Prescriptions: New nitrofurantoin monohyd/m-cryst [Macrobid] 100 mg capsule 100 mg PO BID Qty: 10 0RF Rx Instructions: must administer with a meal/food promethazine 25 mg tablet 25 mg PO TID PRN (Reason: nausea and vomiting) Qty: 14 0RF No Action (DME) Handicap Placard See Rx Instructions .ROUTE .MEDSUPPLY Qty: 1 0RF Rx Instructions: As directed, length of time 3 years pantoprazole 40 mg tablet,delayed release (DR/EC) 40 mg PO BID Qty: 180 1RF ibuprofen 800 mg tablet 800 mg PO Q8H metformin 500 mg tablet 500 mg PO DAILY Qty: 90 1RF (DME) FreeStyle Test Strip See Rx Instructions .ROUTE .MEDSUPPLY Qty: 50 11RF Rx Instructions: check blood glucose daily (DME) blood-glucose meter [FreeStyle System Kit] Kit See Rx Instructions .ROUTE .MEDSUPPLY Qty: 1 0RF Rx Instructions: check blood glucose daily for type 2 DM (DME) lancets [FreeStyle Lancets] 28 gauge misc See Rx Instructions .ROUTE .MEDSUPPLY Qty: 50 11RF Rx Instructions: Check blood glucose daily for type 2 DM escitalopram oxalate [Lexapro] 5 mg tablet 5 mg PO DAILY Qty: 90 1RF lisinopril-hydrochlorothiazide 20-25 mg tablet 1 tab PO DAILY Qty: 90 1RF Ozempic 1 mg/dose (4 mg/3 mL) pen injector 1 mg subcut QWEEK Qty: 3 2RF albuterol sulfate 90 mcg/actuation aerosol powdr breath activated 2 inh INHALATION Q4H PRN (Reason: Sob &/Or Wheezing) Qty: 1 3RF lisinopril 20 mg tablet 20 mg PO HS Qty: 90 1RF prednisone 10 mg tablet 10 mg PO QDAY Qty: 30 0RF Rx Instructions: take 4 tabs for three days, then 3 tabs for three days, then 2 tabs for three days, then 1 tab for 3 days Primary Care Provider: Ezequiel Lepe Referrals: Ezequiel Lepe MD [Primary Care Provider] - Activity Restrictions/Additional Instructions: Take antibiotics until finished. Follow-up with your PCP Disposition Disposition: Home, Self Care Discharge Date/Time: 09/16/22 13:22
[2022-09-16 12:04] LABS: Mucous, Urine 0 SEEN /hpf (<or=2+); Red Blood Cells-Urine 0 SEEN /hpf (0-5); White Blood Cells 0 SEEN /hpf (0-5)
[2022-09-16 12:06] LABS: Absolute Lymphocyte Count 3.48 X10^3/uL (0.83-4.51); Absolute Neutrophil Count 9.4 X10^3/uL (2.0-7.7); Basophil# 0.04 X10^3/uL; Basophil% 0.3 % (0-1); Eosinophil# 0.31 X10^3/uL; Eosinophils% 2.2 % (0-5); Hematocrit 44.4 % (37-47); Hemoglobin 14.8 g/dL (12.0-15.0); Lymphocyte # 3.48 X10^3/ul (0.83-4.51); Mean Corp Hgb Conc 33.3 g/dL (32-36); Mean Corpuscular Hgb 29.3 pg (27.0-32.0); Mean Corpuscular Volume 87.9 fL (81-99); Mean Platelet Vol. 10.7 fl (6.2-12.0); Monocyte# 0.68 X10^3/uL; Monocyte% 4.9 % (0-10); NRBC Flagged by Analyzer 0 % (0-5); Neutrophil # 9.37 X10^3/uL (2.7-7.7); Neutrophil % 67.2 % (47-70); Platelet Count 325 K/mm3 (150-450); RBC Distribution Width CV 12.7 % (11.6-14.6); RBC Distribution Width SD 40.7 fl (35.1-43.9); Red Blood Count 5.05 M/mm3 (4.2-5.4); White Blood Count 13.9 K/mm3 (4.4-11.0)
[2022-09-16 12:09] LABS: Color, Urine Yellow (Yellow); Glucose, Dipstick Normal (Normal); Ketone-Dipstick Negative (Negative); Leukocyte Esterase-Dipstick 25 /ul (Negative); Nitrite-Dipstick Positive (Negative); Occult Blood-Urine 25 /ul (Negative); Protein-Dipstick 15 mg/dl (Negative); Urine Bilirubin Dipstick Negative (Negative); Urine Clarity Sl. Cloudy (Clear); Urine Urobilinogen Normal (Normal); Urine pH 6.5 (5.0 - 8.0)
[2022-09-16 12:17] LABS: Bacteria 2+ /hpf (None Seen); Squamous Epithelial Cells - UA 0-5 SEEN /hpf (5-10)
[2022-09-16 12:24] LABS: ALB/GLOB Ratio 0.8 RATIO (0.9-2.4); AST(SGOT) 30 U/L (15-37); Alanine Aminotransfer ALT/SGPT 43 U/L (13-56); Albumin, Serum 3.4 g/dL (3.2-5.0); Alkaline Phosphatase 125 U/L (45-117); Anion Gap 10 (5-15); BUN 15 mg/dL (7-18); BUN/Creat Ratio 13.4 RATIO (10-20); Calcium,Total 9.7 mg/dL (8.5-10.1); Chloride 102 mmol/L (98-107); Creatinine, Serum 1.12 mg/dL (0.55-1.02); EST Glomerular Filtration Rate 55 mL/min (>60); Est Glom Filt Rate - Afr Amer 66 mL/min (>60); Estimated Creatinine Clearance 54.67 ml/min; Globulin 4.4 g/dL (2.2-4.2); Glucose 153 mg/dL (74-106); Lipase 26 U/L (13-75); Protein, Total 7.8 g/dL (6.4-8.2); Sodium Level 136 mmol/L (136-145)
[2022-09-16] MEDS: Metoclopramide 10 MG/2 ML Vial IV (12:42)
[2022-09-16] MEDS: Nitrofurantoin Macrocrystals 100 MG Capsule PO (12:43)
[2022-09-16] MEDS: DiphenhydrAMINE 50 MG/ML Syringe 25 MG IM (13:18)
[2022-09-16 13:21] VITALS: PULSE 88
== END 2022-09-16 13:22 | disposition home or self-care (01) ==
LOC: ED 12:23
PROVIDERS: Nurse Practitioner; Emergency Provider Emergency Medicine; PCP Internal Medicine; Visit Provider Emergency Medicine
DX: N39.0 Urinary tract infection, site not specified (principal); J44.9 Chronic obstructive pulmonary disease, unspecified; E11.9 Type 2 diabetes mellitus without complications; F17.210 Nicotine dependence, cigarettes, uncomplicated; E66.9 Obesity, unspecified; I10 Essential (primary) hypertension
CPT/HCPCS: 80053; 81001; 83690; 85025; 87077; 87086; 87088; 87186; 96361; 96372; 96374; 96375; 99284; A4216; J2405

== ENCOUNTER → 2022-09-27 | Outpatient (CLI) | payer MEDICARE, MEDICAID, SELFPAY ==
[2022-09-27 16:42] LABS: Absolute Lymphocyte Count 4.39 X10^3/uL (0.83-4.51); Absolute Neutrophil Count 10.5 X10^3/uL (2.0-7.7); Basophil# 0.08 X10^3/uL; Basophil% 0.5 % (0-1); Eosinophil# 0.44 X10^3/uL; Eosinophils% 2.7 % (0-5); Hematocrit 43.9 % (37-47); Hemoglobin 14.7 g/dL (12.0-15.0); Lymphocyte # 4.39 X10^3/ul (0.83-4.51); Lymphocyte % 27.1 % (19-41); Mean Corp Hgb Conc 33.5 g/dL (32-36); Mean Corpuscular Hgb 29.6 pg (27.0-32.0); Mean Corpuscular Volume 88.5 fL (81-99); Mean Platelet Vol. 10.9 fl (6.2-12.0); Monocyte% 4.3 % (0-10); NRBC Flagged by Analyzer 0 % (0-5); Neutrophil # 10.53 X10^3/uL (2.7-7.7); Platelet Count 317 K/mm3 (150-450); RBC Distribution Width CV 13.2 % (11.6-14.6); RBC Distribution Width SD 42.6 fl (35.1-43.9); Red Blood Count 4.96 M/mm3 (4.2-5.4); White Blood Count 16.2 K/mm3 (4.4-11.0)
[2022-09-27 18:58] LABS: Vitamin B12 372 pg/mL (211-911); Vitamin D,25 Hydroxy 20.9 ng/mL
[2022-09-27 19:14] LABS: ALB/GLOB Ratio 0.8 RATIO (0.9-2.4); AST(SGOT) 26 U/L (15-37); Alanine Aminotransfer ALT/SGPT 36 U/L (13-56); Albumin, Serum 3.3 g/dL (3.2-5.0); Alkaline Phosphatase 120 U/L (45-117); Anion Gap 8 (5-15); BUN 23 mg/dL (7-18); BUN/Creat Ratio 25.9 RATIO (10-20); Calcium,Total 9.3 mg/dL (8.5-10.1); Chloride 107 mmol/L (98-107); Creatinine, Serum 0.89 mg/dL (0.55-1.02); EST Glomerular Filtration Rate 72 mL/min (>60); Est Glom Filt Rate - Afr Amer 87 mL/min (>60); Ferritin 234 ng/mL (8-252); Globulin 4.1 g/dL (2.2-4.2); Glucose 112 mg/dL (74-106); Iron 54 ug/dL (50-170); Iron Binding Capacity,Total 288 ug/dL (250-450); PERCENT IRON SATURATION 18.8 % (15.0-55.0); Potassium 3.9 mmol/L (3.5-5.1); Protein, Total 7.4 g/dL (6.4-8.2); Sodium Level 137 mmol/L (136-145); Thyroid Stim Hormone (TSH) 3.05 uIU/mL (0.358-3.74)
== END | disposition home or self-care (01) ==
LOC: BIMLAB 15:47
PROVIDERS: PCP Internal Medicine; Referring Provider Nurse Practitioner Family; Visit Provider Nurse Practitioner Family
DX: J45.909 Unspecified asthma, uncomplicated (principal); G25.81 Restless legs syndrome; R00.2 Palpitations; I10 Essential (primary) hypertension; K29.70 Gastritis, unspecified, without bleeding; K90.9 Intestinal malabsorption, unspecified
CPT/HCPCS: 36415; 80053; 82306; 82607; 82728; 83540; 83550; 83735; 84443; 85025

== ENCOUNTER → 2022-09-27 | Outpatient (CLI) | payer MEDICARE, MEDICAID, SELFPAY | END | disposition home or self-care (01) | PROVIDERS: PCP Internal Medicine; Visit Provider Nurse Practitioner Family | DX: Z00.00 Encounter for general adult medical examination without abnormal findings (principal) ==

== ENCOUNTER → 2022-12-05 | Outpatient (CLI) | payer MEDICARE, MEDICAID, SELFPAY | END | disposition home or self-care (01) | PROVIDERS: PCP Nurse Practitioner Family; Visit Provider Nurse Practitioner Acute Care | DX: J40 Bronchitis, not specified as acute or chronic (principal) | CPT/HCPCS: 87070; 87205 ==

== ENCOUNTER → 2023-01-08 | Outpatient (CLI) | payer MEDICARE, MEDICAID, SELFPAY ==
[2023-01-08 12:18] LABS: Absolute Lymphocyte Count 4.43 X10^3/uL (0.83-4.51); Absolute Neutrophil Count 9.7 X10^3/uL (2.0-7.7); Basophil# 0.08 X10^3/uL; Basophil% 0.5 % (0-1); Eosinophil# 0.23 X10^3/uL; Eosinophils% 1.5 % (0-5); Hematocrit 43.9 % (37-47); Hemoglobin 13.9 g/dL (12.0-15.0); Lymphocyte # 4.43 X10^3/ul (0.83-4.51); Lymphocyte % 29.1 % (19-41); Mean Corp Hgb Conc 31.7 g/dL (32-36); Mean Corpuscular Hgb 29.4 pg (27.0-32.0); Mean Platelet Vol. 10.8 fl (6.2-12.0); Monocyte# 0.68 X10^3/uL; Monocyte% 4.5 % (0-10); NRBC Flagged by Analyzer 0 % (0-5); Neutrophil # 9.65 X10^3/uL (2.7-7.7); Neutrophil % 63.5 % (47-70); POSITIVE MORPHOLOGY YES; Platelet Count 407 K/mm3 (150-450); RBC Distribution Width CV 13.1 % (11.6-14.6); RBC Distribution Width SD 44.3 fl (35.1-43.9); Red Blood Count 4.72 M/mm3 (4.2-5.4); White Blood Count 15.2 K/mm3 (4.4-11.0)
[2023-01-08 12:21] LABS: Differential Indicated SCAN CRITERIA MET
[2023-01-08 12:55] LABS: Vitamin B12 516 pg/mL (211-911); Vitamin D,25 Hydroxy 41.2 ng/mL
[2023-01-08 12:56] LABS: Differential Comment SCANNED; Reactive Lymphocyte 1+
[2023-01-08 13:02] LABS: ALB/GLOB Ratio 0.8 RATIO (0.9-2.4); AST(SGOT) 37 U/L (15-37); Alanine Aminotransfer ALT/SGPT 44 U/L (13-56); Albumin, Serum 3.6 g/dL (3.2-5.0); Alkaline Phosphatase 118 U/L (45-117); Anion Gap 9 (5-15); BUN 18 mg/dL (7-18); Calcium,Total 10.1 mg/dL (8.5-10.1); Chloride 104 mmol/L (98-107); Creatinine, Serum 1.06 mg/dL (0.55-1.02); EST Glomerular Filtration Rate 58 mL/min (>60); Est Glom Filt Rate - Afr Amer 71 mL/min (>60); Ferritin 310 ng/mL (8-252); Globulin 4.5 g/dL (2.2-4.2); Glucose 118 mg/dL (74-106); Iron 62 ug/dL (50-170); Iron Binding Capacity,Total 334 ug/dL (250-450); PERCENT IRON SATURATION 18.6 % (15.0-55.0); Potassium 4.1 mmol/L (3.5-5.1); Protein, Total 8.1 g/dL (6.4-8.2); Sodium Level 137 mmol/L (136-145); Thyroid Stim Hormone (TSH) 3.07 uIU/mL (0.358-3.74)
== END | disposition home or self-care (01) ==
LOC: LAB 11:23
PROVIDERS: PCP Nurse Practitioner Family; Referring Provider Nurse Practitioner Family; Visit Provider Nurse Practitioner Family
DX: G25.81 Restless legs syndrome (principal)
CPT/HCPCS: 36415; 80050; 80053; 82306; 82607; 82728; 83540; 83550; 84443; 85025

== ENCOUNTER 2023-02-01 11:06 | Emergency (ER) | payer MEDICARE, MEDICAID, SELFPAY ==
[2023-02-01 11:07] VITALS: BP 147/80; PULSE 82; RESP 14; TEMP 36.1; O2SAT 100; BMI 50.4
--- NOTE | 2023-02-01 11:38 | EX.ED.DYSGE1 ---
HPI History of Present Illness Chief Complaint: Weakness Detail of Chief Complaint: Yesterday fell off her porch landing on her left hip. Pain. Informant: patient Onset/Context/Timing Onset: Today and Yesterday Context: Sudden Onset Timing: Continuous Current Severity: Mild Maximum Severity: Mild Narrative Narrative: 47-year-old female history of COPD, diabetes and chronic kidney disease. Since yesterday she lost her balance fell off her porch landing on her left hip complaining of pain. Did not hit her head. No LOC. No neck pain. No other complaints. Prior similar symptoms: No Recent Illness/Hospitalization: No PFSH PFSH Medical History Abdominal pain Abdominal wall abscess Acute thoracic back pain Anxiety Anxiety and depression Arthritis Asthma BiPAP (biphasic positive airway pressure) dependence Bladder disease Bronchitis Cancer of left kidney Cervical radiculopathy Chronic back pain Chronic cough Chronic neck and back pain COPD (chronic obstructive pulmonary disease) COPD (chronic obstructive pulmonary disease) Costochondritis Depression Depression with anxiety Diarrhea Diarrhea Dizziness Fatigue Fatigue Fatty stools Gastric reflux Gastroenteritis Generalized anxiety disorder GERD (gastroesophageal reflux disease) H/O emotional problems Headache History of echocardiogram History of edema History of hiatal hernia History of mononucleosis History of renal disease History of stress test History of ulceration HTN (hypertension) HTN (hypertension) Incontinence Intertriginous dermatitis associated with moisture Intestinal ulcer Left ankle pain Lesion of bladder Limb weakness Loose, teeth Lung disease Mild chronic gastritis Nausea and vomiting MARGARITA (obstructive sleep apnea) MARGARITA (obstructive sleep apnea) MARGARITA (obstructive sleep apnea) Overactive bladder Overactive bladder Palpitations Palpitations Pulmonary hypertension Restless leg syndrome Shortness of breath Shoulder pain Sleep apnea Smoker SOB (shortness of breath) Stress incontinence Stress incontinence Type 2 diabetes mellitus UTI (urinary tract infection) Venous insufficiency of both lower extremities Wears glasses Home Medications Handicap Placard #1 ea 11/28/20 [Rx Last Taken Unknown] ibuprofen 800 mg tablet 800 mg PO Q8H 01/31/22 [History Last Taken Unknown] albuterol sulfate 90 mcg/actuation breath activated powder inhaler 2 inh inhalation Q4H PRN Sob &/Or Wheezing #1 ea 03/21/22 [Rx Last Taken Unknown] blood sugar diagnostic (FreeStyle Test strips) #50 ea 08/10/22 [Rx Last Taken Unknown] blood-glucose meter (Hyper Urban Level User [place]yle System Kit) #1 ea 08/10/22 [Rx Last Taken Unknown] escitalopram oxalate 5 mg tablet (Lexapro) 5 mg PO DAILY #90 tabs 08/10/22 [Rx Last Taken Unknown] lancets 28 gauge (FreeStyle Lancets) #50 ea 08/10/22 [Rx Last Taken Unknown] lisinopril 20 mg-hydrochlorothiazide 25 mg tablet 1 tab PO DAILY #90 tabs 08/10/22 [Rx Last Taken Unknown] metformin 500 mg tablet 500 mg PO DAILY #90 tabs 08/10/22 [Rx Last Taken Unknown] pantoprazole 40 mg tablet,delayed release 40 mg PO BID #180 tabs 10/25/22 [Rx Last Taken Unknown] metoprolol succinate 25 mg tablet,extended release 24 hr 25 mg PO BID #180 tabs 11/09/22 [Rx Last Taken Unknown] semaglutide 1 mg/dose (4 mg/3 mL) subcutaneous pen injector 1 mg (0.75 mL) subcut QWEEK #3 mL 11/09/22 [Rx Last Taken Unknown] ropinirole 0.5 mg tablet 0.5 mg PO QHS #30 tabs 12/03/22 [Rx Last Taken Unknown] furosemide 20 mg tablet 20 mg PO DAILY #3 tabs 12/05/22 [Rx Last Taken Unknown] Allergy/AdvReac Type Severity Reaction Status Date / Time cefaclor [From Ceclor] Allergy Hives Verified 02/01/23 11:09 ciprofloxacin [From Cipro] Allergy Itching Verified 02/01/23 11:09 erythromycin base Allergy Upset Verified 02/01/23 11:09 [Erythromycin Base] Stomach moxifloxacin HCl Allergy Hives Verified 02/01/23 11:09 [From Avelox] Penicillins Allergy Upset Verified 02/01/23 11:09 Stomach sulfamethoxazole Allergy Unknown Verified 02/01/23 11:09 [From Bactrim] trimethoprim [From Bactrim] Allergy Unknown Verified 02/01/23 11:09 Family History Mother CVA (cerebral vascular accident) Thyroid disorder Ulcer Arthritis Father Diabetes Heart disease Myocardial infarction Arthritis Hypertension High cholesterol Skin cancer Son , age 17 Asthma Large B-cell lymphoma Other Anxiety Melanoma Respiratory disease Surgical History History of ankle surgery History of colonoscopy History of cystoscopy History of cystoscopy History of esophagogastroduodenoscopy (EGD) (~01/20/20) History of lymph node biopsy History of partial hysterectomy History of sinus surgery History of tonsillectomy Hx of cholecystectomy Hx of cystoscopy Hx of cystoscopy Hx of hysterectomy Hx of nasal septoplasty Hx of prior ablation treatment Hx of tonsillectomy Social History household members: children Smoking Status: Current every day smoker tobacco type: cigarettes Tobacco: How many years used: 25 alcohol intake: never substance use type: does not use what type of physical activity do you participate in: none do you feel safe at home: Yes ROS ROS ED ROS Narrative Denies recent illness Review of Systems ROS Unobtainable: Denies due to encephalopathy Constitutional Constitutional ED: Denies chills or fever(s) Eyes Eyes: Denies blurry vision ENT ENT ED: Denies ear pain Cardiovascular Cardiovascular: Denies chest pain Respiratory/Chest Respiratory/Chest: Denies cough or dyspnea Gastrointestinal Gastrointestinal: Denies abdominal pain Genitourinary Genitourinary ED: Denies dysuria or hematuria Musculoskeletal Musculoskeletal: Denies arthralgias Integumentary Denies abscess Neurologic Neurologic: Denies headache(s) Psychiatric Psychiatric: Denies anxiety or depression Endocrine Endocrinology: Denies cold intolerance Hematologic/Lymphatic Hematologic/Lymphatic: Reports none Allergic/Immunologic Allergic/Immunologic ED: Denies mouth swelling or tongue swelling EXAM Physical Exam Narrative Exam Narrative: Appearing 47-year-old female. Vital signs stable afebrile. H EENT exam unremarkable. Manic. Neck nontender. To motion. Lungs clear to auscultation bilaterally. Heart regular rate and rhythm no murmur. Chest wall and ribs nontender. Abdomen soft nontender. Back cervical, thoracic lumbar spine nontender. No bruising. Pelvic girdle intact. Tenderness left hip. Full flexion extension left hip. Full flexion extension left knee ankle and foot. Normal strength. Normal sensation. Both upper extremities right lower extremity unremarkable. Neurologically she is awake and alert with no focal motor deficits. Const Vital Signs: 02/01/23 11:07 02/01/23 11:26 Temperature 97.0 F L Temperature Source Temporal Pulse Rate 82 Respiratory Rate 14 Respiratory Pattern Normal Blood Pressure 147/80 H Blood Pressure Mean 102 Pulse Ox 100 Oxygen Delivery Method Room Air Positive well nourished, well developed and obese; Negative for cachectic, contractures or unkempt General Appearance ED: well developed and NAD; Negative for unkempt, cachectic, contractures, cyanotic, diaphoretic or pallor Nutritional Appearance: obese; Negative for cachectic HEENT Reports moist mucous membranes; Denies dry mucous membranes Negative for trauma or tenderness Mouth ED: No dry mucous membranes Mouth: No dry mucous membranes Eyes PERRL and EOMs intact bilaterally General Eye ED: Negative for pale conjunctiva or scleral icterus Neck no lymphadenopathy, supple and no JVD General: Negative for tenderness Lymph Lymphatic: Negative for other Chest Wall inspection of chest normal and palpation of chest normal Chest: Negative for other Resp normal respiratory effort and clear to auscultation bilaterally Effort and Inspection: Negative for retractions or pain with movement Auscultation: Negative for rales, rhonchi or wheezes Cardio regular rate, regular rhythm, S1 normal heart sound, S2 normal heart sound and no murmurs GI normal to inspection, nondistended, normoactive bowel sounds, non-tender, non-distended and no masses Inspection: Negative for abdominal distention Auscultation: normoactive bowel sounds Palpation: soft; Negative for tender or guarding Bladder / Kidney Exam: No other Back/Spine no CVA tenderness General Back: Negative for CVA tenderness or other Cervical Spine: Negative for cervical spine tenderness Thoracic Spine / Upper Back: Negative for thoracic spinal tenderness Lumbar Spine / Lower Back: Negative for lumbar spinal tenderness Extremity Negative for normal to inspection Extremity Narrative: Left hip tenderness. Full range of motion. No shortening or rotation. Normal strength. General Extremety ED: Yes tenderness Neuro oriented x3 and CN's II-XII intact bilaterally Motor Exam: strength 5/5 throughout Psych mental status grossly normal Appearance: Negative for unkempt Attitude: No agitated Mood & Affect: Negative for depressed or anxious Skin no rashes or lesions noted, no wounds and skin turgor normal General Skin Exam: elasticity normal; Negative for jaundice or pallor Lesions: No lesion noted Rashes: No rashes noted Trauma: Negative for abrasion Wounds: Negative for wounds noted MDM MDM MDM Narrative Medical decision making narrative: 47-year-old female fell yesterday injuring her left hip. X-ray being obtained to rule out fracture. Clinically I suspect a contusion. Monitor for pain. Exam patient doing well at 12:34 PM. She will be discharged home. Ice to her hip. Motrin and Tylenol for pain. Follow-up as needed. Radiography Diagnostic Testing: Clinical Impression(s) from Imaging Studies Hip/Pelvis X-Ray 02/01/23 11:50 IMPRESSION: Normal x-ray examination of the pelvis and hip. Electronically Signed: Michael Jacome MD at 12:05 EDT , Left hip and pelvis x-ray showed no acute abnormality. 3 views interpreted both by myself and the radiologist. No fracture noted. No dislocation. Discharge Plan Triage Chief Complaint: Weakness ED Provider: Luke Morgan Dx/Rx/DC Orders Clinical Impression: Fall, Contusion of hip, left Instructions: ED Hip Contusion Prescriptions: No Action (DME) Handicap Placard See Rx Instructions .ROUTE .MEDSUPPLY Qty: 1 0RF Rx Instructions: As directed, length of time 3 years ibuprofen 800 mg tablet 800 mg PO Q8H metformin 500 mg tablet 500 mg PO DAILY Qty: 90 1RF (DME) FreeStyle Test Strip See Rx Instructions .ROUTE .MEDSUPPLY Qty: 50 11RF Rx Instructions: check blood glucose daily (DME) blood-glucose meter [FreeStyle System Kit] Kit See Rx Instructions .ROUTE .MEDSUPPLY Qty: 1 0RF Rx Instructions: check blood glucose daily for type 2 DM (DME) lancets [FreeStyle Lancets] 28 gauge misc See Rx Instructions .ROUTE .MEDSUPPLY Qty: 50 11RF Rx Instructions: Check blood glucose daily for type 2 DM escitalopram oxalate [Lexapro] 5 mg tablet 5 mg PO DAILY Qty: 90 1RF lisinopril-hydrochlorothiazide 20-25 mg tablet 1 tab PO DAILY Qty: 90 1RF metoprolol succinate 25 mg tablet extended release 24 hr 25 mg PO BID Qty: 180 1RF Ozempic 1 mg/dose (4 mg/3 mL) pen injector 1 mg subcut QWEEK Qty: 3 3RF furosemide 20 mg tablet 20 mg PO DAILY Qty: 3 0RF albuterol sulfate 90 mcg/actuation aerosol powdr breath activated 2 inh INHALATION Q4H PRN (Reason: Sob &/Or Wheezing) Qty: 1 3RF pantoprazole 40 mg tablet,delayed release (DR/EC) 40 mg PO BID Qty: 180 1RF ropinirole 0.5 mg tablet 0.5 mg PO QHS Qty: 30 0RF Rx Instructions: administer 1-3 hours before bedtime Primary Care Provider: Juan Daniel Marrero NP Referrals: Juan Daniel Marrero NP, [facility] [Primary Care Provider] - 1 Week if not improving Activity Restrictions/Additional Instructions: Motrin and Tylenol for pain. Ice to your hip. The x-ray looks good. No broken bones. Follow-up if not improving. Disposition Disposition: Home, Self Care
--- NOTE | 2023-02-01 11:50 | RAD_ITS ---
STUDY: X-RAY - PELVIS AND LEFT HIP REASON FOR EXAM: Female, 47 years old. Left hip pain following a fall. TECHNIQUE: 3 views of the pelvis and hip. COMPARISON: None. FINDINGS: There is a non-specific bowel gas pattern. Normal visualized soft tissue structures. Normal bilateral iliac wings, sacroiliac joints and visualized sacrum. Normal bilateral superior and inferior pubic rami. Normal pubic symphysis. Normal bilateral ischial tuberosities. Normal visualized femoral head. Normal acetabulum. Normal hip joint. RAD/HIP, UNI W/ Pelvis 2-3 Views IMPRESSION: Normal x-ray examination of the pelvis and hip. Electronically Signed: Michael Jacome MD at 12:05 EDT ,
[2023-02-01] MEDS: HYDROcodone Bitartrate/Apap 5/325 Tablet PO (11:55)
== END 2023-02-01 12:46 | disposition home or self-care (01) ==
PROVIDERS: Emergency Provider Emergency Medicine; PCP Nurse Practitioner Family; Visit Provider Emergency Medicine
DX: S70.02XA Contusion of left hip, initial encounter (principal); J44.9 Chronic obstructive pulmonary disease, unspecified; E11.22 Type 2 diabetes mellitus with diabetic chronic kidney disease; M54.9 Dorsalgia, unspecified; G89.29 Other chronic pain; W17.89XA Other fall from one level to another, initial encounter; Y92.008 Other place in unspecified non-institutional (private) residence as the place of occurrence of the external cause; I12.9 Hypertensive chronic kidney disease with stage 1 through stage 4 chronic kidney disease, or unspecified chronic kidney disease; N18.9 Chronic kidney disease, unspecified; R53.1 Weakness; F17.210 Nicotine dependence, cigarettes, uncomplicated; Z79.84 Long term (current) use of oral hypoglycemic drugs; Z79.899 Other long term (current) drug therapy
CPT/HCPCS: 73502; 99282

== ENCOUNTER 2023-04-19 10:33 | Emergency (ER) | payer MEDICARE, MEDICAID, SELFPAY ==
[2023-04-19 10:34] VITALS: BP 137/87; PULSE 98; RESP 14; TEMP 36.6; O2SAT 98; BMI 51.0
--- NOTE | 2023-04-19 10:54 | CT_ITS ---
STUDY: CT BRAIN WITHOUT CONTRAST REASON FOR EXAM: Female, 47 years old. Headache injury RADIATION DOSAGE (If Supplied By Facility): CTDIvol = ( 44.99 ) mGy, DLP = ( 745.49 ) mGycm TECHNIQUE: Transaxial CT imaging of the brain was performed without administration of intravenous contrast material. Individualized dose optimization techniques were used for this CT. COMPARISON: Comparison is made with prior study dated December 03, 2020. FINDINGS: Normal soft tissue structures. Normal calvarium. Normal size ventricles and extra-axial spaces for the patient''s age. Normal white matter tracts of the cerebral hemispheres. Normal basal ganglia and thalami. Normal brainstem. Normal cerebellum. There is no intracranial hemorrhage. There are no findings of an acute ischemic infarction. Normal visualized paranasal sinuses. CT/Brain/Head without Contrast IMPRESSION: Normal unenhanced CT scan of the brain. Electronically Signed: Michael Jacome MD at 11:17 EST ,
--- NOTE | 2023-04-19 10:57 | EDS_ITS ---
HPI History of Present Illness Chief Complaint: Headache Informant: patient Narrative Narrative: Patient states she was recently treated 47-year-old female presenting to the emergency room with the chief complaint of headache and congestion. for an otitis media. This made her dizzy and while cleaning up after her dog in the yard she fell down striking the back of her head. Since that time she has had a headache and also developed nasal congestion and sore throat. She notes her daughter was diagnosed on Saturday with COVID-19. She states that she has tested herself and has been negative. She denies any fevers. She notes that she has been using her inhaler over the past couple days because her nebulizer machine is in storage. She is supposed to go see her niece tomorrow for a birthday alliance party who is 7 and wonders if she should go. She does note some dizziness in association with the headache. She does note some shortness of breath when she exerts himself to the bathroom. [facility] Medical History Abdominal pain Abdominal wall abscess Acute thoracic back pain Anxiety Anxiety and depression Arthritis Asthma BiPAP (biphasic positive airway pressure) dependence Bladder disease Bronchitis Cancer of left kidney Cervical radiculopathy Chronic back pain Chronic cough Chronic neck and back pain COPD (chronic obstructive pulmonary disease) COPD (chronic obstructive pulmonary disease) Costochondritis Depression Depression with anxiety Diarrhea Diarrhea Dizziness Fatigue Fatigue Fatty stools Gastric reflux Gastroenteritis Generalized anxiety disorder GERD (gastroesophageal reflux disease) H/O emotional problems Headache History of echocardiogram History of edema History of hiatal hernia History of mononucleosis History of renal disease History of stress test History of ulceration HTN (hypertension) HTN (hypertension) Incontinence Intertriginous dermatitis associated with moisture Intestinal ulcer Left ankle pain Lesion of bladder Limb weakness Loose, teeth Lung disease Mild chronic gastritis Nausea and vomiting MARGARITA (obstructive sleep apnea) MARGARITA (obstructive sleep apnea) MARGARITA (obstructive sleep apnea) Overactive bladder Overactive bladder Palpitations Palpitations Pulmonary hypertension Restless leg syndrome Shortness of breath Shoulder pain Sleep apnea Smoker SOB (shortness of breath) Stress incontinence Stress incontinence Type 2 diabetes mellitus UTI (urinary tract infection) Venous insufficiency of both lower extremities Wears glasses Home Medications Handicap Bryant #1 ea 11/28/20 [Rx Last Taken Unknown] ibuprofen 800 mg tablet 800 mg PO Q8H 01/31/22 [History Last Taken Unknown] albuterol sulfate 90 mcg/actuation breath activated powder inhaler 2 inh inhalation Q4H PRN Sob &/Or Wheezing #1 ea 03/21/22 [Rx Last Taken Unknown] blood sugar diagnostic (FreeStyle Test strips) #50 ea 08/10/22 [Rx Last Taken Unknown] blood-glucose meter (FreeStyle System Kit) #1 ea 08/10/22 [Rx Last Taken Unknown] escitalopram oxalate 5 mg tablet (Lexapro) 5 mg PO DAILY #90 tabs 08/10/22 [Rx Last Taken Unknown] lancets 28 gauge (FreeStyle Lancets) #50 ea 08/10/22 [Rx Last Taken Unknown] lisinopril 20 mg-hydrochlorothiazide 25 mg tablet 1 tab PO DAILY #90 tabs 08/10/22 [Rx Last Taken Unknown] metformin 500 mg tablet 500 mg PO DAILY #90 tabs 08/10/22 [Rx Last Taken Unknown] pantoprazole 40 mg tablet,delayed release 40 mg PO BID #180 tabs 10/25/22 [Rx Last Taken Unknown] metoprolol succinate 25 mg tablet,extended release 24 hr 25 mg PO BID #180 tabs 11/09/22 [Rx Last Taken Unknown] semaglutide 1 mg/dose (4 mg/3 mL) subcutaneous pen injector 1 mg (0.75 mL) subcut QWEEK #3 mL 11/09/22 [Rx Last Taken Unknown] ropinirole 0.5 mg tablet 0.5 mg PO QHS #30 tabs 12/03/22 [Rx Last Taken Unknown] furosemide 20 mg tablet 20 mg PO DAILY #3 tabs 12/05/22 [Rx Last Taken Unknown] Allergy/AdvReac Type Severity Reaction Status Date / Time cefaclor [From Ceclor] Allergy Hives Verified 04/19/23 10:33 ciprofloxacin [From Cipro] Allergy Itching Verified 04/19/23 10:33 erythromycin base Allergy Upset Verified 04/19/23 10:33 [Erythromycin Base] Stomach moxifloxacin HCl Allergy Hives Verified 04/19/23 10:33 [From Avelox] Penicillins Allergy Upset Verified 04/19/23 10:33 Stomach sulfamethoxazole Allergy Unknown Verified 04/19/23 10:33 [From Bactrim] trimethoprim [From Bactrim] Allergy Unknown Verified 04/19/23 10:33 Family History Mother CVA (cerebral vascular accident) Thyroid disorder Ulcer Arthritis Father Diabetes Heart disease Myocardial infarction Arthritis Hypertension High cholesterol Skin cancer Son , age 17 Asthma Large B-cell lymphoma Other Anxiety Melanoma Respiratory disease Surgical History History of ankle surgery History of colonoscopy History of cystoscopy History of cystoscopy History of esophagogastroduodenoscopy (EGD) (~01/20/20) History of lymph node biopsy History of partial hysterectomy History of sinus surgery History of tonsillectomy Hx of cholecystectomy Hx of cystoscopy Hx of cystoscopy Hx of hysterectomy Hx of nasal septoplasty Hx of prior ablation treatment Hx of tonsillectomy Social History household members: children Smoking Status: Current every day smoker tobacco type: cigarettes Tobacco: How many years used: 25 alcohol intake: never substance use type: does not use what type of physical activity do you participate in: none do you feel safe at home: Yes ROS ROS ED Constitutional Constitutional ED: Denies chills, fever(s) or weight loss Eyes Eyes: Denies change in vision or diplopia ENT ENT ED: Reports rhinorrhea, sore throat and other Details: congestion ; Denies ear pain Cardiovascular Cardiovascular: Denies chest pain, orthopnea, palpitations or racing heartbeat Respiratory/Chest Respiratory/Chest: Reports cough and dyspnea; Denies orthopnea Gastrointestinal Gastrointestinal: Denies abdominal pain, diarrhea, nausea or vomiting Genitourinary Genitourinary ED: Denies dysuria, hematuria or urinary frequency Musculoskeletal Musculoskeletal: Denies arthralgias or myalgias Integumentary Denies abscess or rash Neurologic Neurologic: Reports headache(s) and other Details: dizziness ; Denies weakness Psychiatric Psychiatric: Denies anxiety, depression, suicidal ideation or suicidal thoughts Endocrine Endocrinology: Denies polydipsia, polyphagia or polyuria Allergic/Immunologic Allergic/Immunologic ED: Denies mouth swelling, tongue swelling or urticaria EXAM Physical Exam Const Vital Signs: 04/19/23 10:34 Temperature 98 F Temperature Source Temporal Pulse Rate 98 Respiratory Rate 14 Blood Pressure 137/87 H Blood Pressure Mean 103 Pulse Ox 98 Oxygen Delivery Method Room Air Positive well nourished, well developed and obese General Appearance ED: well developed Nutritional Appearance: obese HEENT Reports normocephalic, head/scalp atraumatic and moist mucous membranes HEENT Narrative: Mild turbinate edema clear rhinorrhea. Evidence of postnasal drip. No oropharyngeal erythema tonsillar swelling/exudate or evidence of retropharyngeal peritonsillar abscess. Eyes PERRL and EOMs intact bilaterally Neck no lymphadenopathy, supple and no JVD Resp normal respiratory effort Resp Narrative: There is a very slight end expiratory wheeze Cardio regular rate, regular rhythm and no murmurs GI normal to inspection, nondistended, normoactive bowel sounds and non-tender Palpation: soft Back/Spine no CVA tenderness and normal ROM Extremity normal to inspection General Extremety ED: Negative for edema General Extremity: Negative for edema Neuro oriented x3 and CN's II-XII intact bilaterally Sensorium / Orientation: alert Motor Exam: strength 5/5 throughout Psych mental status grossly normal Mood & Affect: Negative for depressed or tearful Skin no rashes or lesions noted and no wounds MDM MDM MDM Narrative Medical decision making narrative: CT of the brain showed no hemorrhage or fracture. My independent interpretation of the chest x-ray is a new nodule 2.5 cm x 2.2 cm right lung base. Comparing this from July 2022. Is recommended the patient follow-up with primary care for further imaging and evaluation of this. Her COVID influenza as well as RSV are negative. She does have some faint expiratory wheeze which show will encourage her to continue using her albuterol and I can write for some prednisone. Radiography Diagnostic Testing: Clinical Impression(s) from Imaging Studies Brain CT 04/19/23 10:54 IMPRESSION: Normal unenhanced CT scan of the brain. Electronically Signed: Michael Jacome MD at 11:17 EST , Chest X-Ray 04/19/23 12:28 IMPRESSION: New 2.5 cm x 2.2 cm well-defined nodule in the peripheral lateral aspect of the right lung base. Electronically Signed: Michael Jacome MD at 12:47 EST , Discharge Plan Triage Chief Complaint: Headache ED Provider: Chiki Guzman Dx/Rx/DC Orders Clinical Impression: Viral URI, Lung nodule, Headache, COPD (chronic obstructive pulmonary disease), Head injury Instructions: ED COPD Flare Prescriptions: No Action (DME) Handicap Placard See Rx Instructions .ROUTE .MEDSUPPLY Qty: 1 0RF Rx Instructions: As directed, length of time 3 years ibuprofen 800 mg tablet 800 mg PO Q8H metformin 500 mg tablet 500 mg PO DAILY Qty: 90 1RF (DME) FreeStyle Test Strip See Rx Instructions .ROUTE .MEDSUPPLY Qty: 50 11RF Rx Instructions: check blood glucose daily (DME) blood-glucose meter [FreeStyle System Kit] Kit See Rx Instructions .ROUTE .MEDSUPPLY Qty: 1 0RF Rx Instructions: check blood glucose daily for type 2 DM (DME) lancets [FreeStyle Lancets] 28 gauge misc See Rx Instructions .ROUTE .MEDSUPPLY Qty: 50 11RF Rx Instructions: Check blood glucose daily for type 2 DM escitalopram oxalate [Lexapro] 5 mg tablet 5 mg PO DAILY Qty: 90 1RF lisinopril-hydrochlorothiazide 20-25 mg tablet 1 tab PO DAILY Qty: 90 1RF metoprolol succinate 25 mg tablet extended release 24 hr 25 mg PO BID Qty: 180 1RF Ozempic 1 mg/dose (4 mg/3 mL) pen injector 1 mg subcut QWEEK Qty: 3 3RF furosemide 20 mg tablet 20 mg PO DAILY Qty: 3 0RF albuterol sulfate 90 mcg/actuation aerosol powdr breath activated 2 inh INHALATION Q4H PRN (Reason: Sob &/Or Wheezing) Qty: 1 3RF pantoprazole 40 mg tablet,delayed release (DR/EC) 40 mg PO BID Qty: 180 1RF ropinirole 0.5 mg tablet 0.5 mg PO QHS Qty: 30 0RF Rx Instructions: administer 1-3 hours before bedtime Primary Care Provider: Juan Daniel Marrero NP Referrals: Juan Daniel Marrero NP, ASSISTANT PROFESSOR OF ANTHROPOLOGY-C [Primary Care Provider] - As Needed Disposition Disposition: Home, Self Care
--- NOTE | 2023-04-19 12:28 | RAD_ITS ---
STUDY: X-RAY CHEST REASON FOR EXAM: Female, 47 years old. Cough TECHNIQUE: Single AP portable view of the chest. COMPARISON: Comparison is made with prior study dated July 14, 2022. FINDINGS: There is a 2.5 cm x 2.2 cm well-defined nodule in the peripheral lateral aspect of the right lung base. This is unchanged from prior radiograph suggestive of granuloma. There is no demonstrated pleural abnormality. Normal size heart. Normal mediastinum and jalyn. Normal visualized pulmonary arteries. Normal visualized aortic arch and descending thoracic aorta. Normal visualized thoracic spine. Normal visualized ribs, clavicles, and shoulders. There is no demonstrated abnormality of the visualized soft tissue structures of the upper abdomen. RAD/Chest 1 View (Portable) IMPRESSION: New 2.5 cm x 2.2 cm well-defined nodule in the peripheral lateral aspect of the right lung base. Electronically Signed: Michael Jacome MD at 12:47 EST ,
== END 2023-04-19 13:05 | disposition home or self-care (01) ==
PROVIDERS: Emergency Provider Emergency Medicine; PCP Nurse Practitioner Family; Visit Provider Emergency Medicine
DX: J06.9 Acute upper respiratory infection, unspecified (principal); J44.9 Chronic obstructive pulmonary disease, unspecified; E11.9 Type 2 diabetes mellitus without complications; S09.90XA Unspecified injury of head, initial encounter; W01.10XA Fall on same level from slipping, tripping and stumbling with subsequent striking against unspecified object, initial encounter; Y92.096 Garden or yard of other non-institutional residence as the place of occurrence of the external cause; R91.1 Solitary pulmonary nodule; I10 Essential (primary) hypertension; R42 Dizziness and giddiness; Z11.52 Encounter for screening for COVID-19; F17.210 Nicotine dependence, cigarettes, uncomplicated; Z79.84 Long term (current) use of oral hypoglycemic drugs; Z79.899 Other long term (current) drug therapy
CPT/HCPCS: 70450; 71045; 87428; 87807; 99282

== ENCOUNTER → 2023-05-08 | Outpatient (CLI) | payer MEDICARE, MEDICAID, SELFPAY ==
--- NOTE | 2023-05-08 13:22 | RAD_ITS ---
STUDY: X-RAY CHEST REASON FOR EXAM: Female, 47 years old. COPD. Follow-up. TECHNIQUE: Frontal and lateral views of the chest. COMPARISON: April 19, 2023 FINDINGS: Hyperinflation with stable noncalcified right pulmonary nodule. There is no demonstrated pleural abnormality. Normal size heart. Normal mediastinum and jalyn. Normal visualized pulmonary arteries. Normal visualized aortic arch and descending thoracic aorta. Normal visualized thoracic spine. Normal visualized ribs, clavicles, and shoulders. No abnormality of the visualized soft tissue structures of the upper abdomen. RAD/Chest PA and Lateral IMPRESSION: Stable hyperinflation with noncalcified right pulmonary nodule projected over the right lower lobe, unchanged. Electronically Signed: Fred Arteaga MD at 14:05 EST ,
== END | disposition home or self-care (01) ==
LOC: RAD 13:21
PROVIDERS: PCP Nurse Practitioner Family; Referring Provider Nurse Practitioner Family; Visit Provider Nurse Practitioner Family
DX: J44.1 Chronic obstructive pulmonary disease with (acute) exacerbation (principal)
CPT/HCPCS: 71046

== ENCOUNTER 2023-05-10 08:55 | Emergency (ER) | payer MEDICARE, MEDICAID, SELFPAY ==
[2023-05-10] VITALS (7 sets, daily range): BP systolic 105–132; BP diastolic 60–83; PULSE 78–91; RESP 14–18; TEMP 36.4–37.2; O2SAT 97–100; BMI 51.0
--- NOTE | 2023-05-10 09:26 | CT_ITS ---
EXAM: CT ANGIOGRAPHY CHEST WITH INTRAVENOUS CONTRAST CLINICAL INDICATION: Dyspnea TECHNIQUE: Helically acquired angiography images were obtained of the chest with intravenous contrast. This CT exam was performed using one or more of the following dose reduction techniques: automated exposure control, adjustment of the mA and/or kV according to patient size, and/or use of iterative reconstruction technique. MIP reconstructed images were created and reviewed. CONTRAST: IV 100mL [id number] COMPARISON: No relevant prior studies available. FINDINGS: PULMONARY ARTERIES: Normal. Normal in caliber. No evidence of pulmonary embolism. AORTA: Normal. Normal in caliber. No evidence of dissection. GREAT VESSELS OF AORTIC ARCH: Normal. Normal in caliber. No evidence of dissection. LUNGS AND PLEURAL SPACES: 2.2 cm right lower lobe pulmonary nodule noted containing fat density centrally consistent with hamartoma. Heterogeneous density of the lungs suggestive of air trapping related to small airway disease. No pleural effusion or thickening. HEART: Normal. Heart size is normal. No pericardial effusion. MEDIASTINUM: Normal. No mediastinal or hilar adenopathy. Esophagus is unremarkable. No hiatal hernia. BONES/JOINTS: Normal. No suspicious lytic or blastic abnormality. CT/CTA Chest W/WO Contrast IMPRESSION: 1. No evidence of acute pulmonary embolism. 2. Bilateral pulmonary air trapping related to small airway disease. 3. 2.2 cm right lower lobe hamartoma. Electronically Signed: Jabier Birch MD at 11:21 [facility] ,
--- NOTE | 2023-05-10 09:29 | ED.VIS.DYS ---
HPI History of Present Illness Chief Complaint: Shortness of Breath Informant: patient Narrative Narrative: 47-year-old female presenting to the emergency room with dyspnea and skin hypersensitivity of the chest and neck. Patient was seen earlier this month diagnosed with COVID-19. She was on prednisone for COPD. She saw primary care earlier this week was placed on a prednisone taper and azithromycin. She states she continues to wheeze. She notes intermittent fevers. She reports a hypersensitivity to light touch of the skin of the upper chest wall and neck. She notes nasal congestion. She has cut her smoking down from a couple packs a day to a half a pack a day. She states her blood sugars have been running in the 300s. She feels near syncopal at times. She notes intermittent episodes of anxiety that causes her to breathe fast. She states that this stems from coughing fits and not being able to take a deep breath [facility] Medical History Abdominal pain Abdominal wall abscess Acute thoracic back pain Anxiety Anxiety and depression Arthritis Asthma BiPAP (biphasic positive airway pressure) dependence Bladder disease Bronchitis Cancer of left kidney Cervical radiculopathy Chronic back pain Chronic cough Chronic neck and back pain COPD (chronic obstructive pulmonary disease) COPD (chronic obstructive pulmonary disease) Costochondritis Depression Depression with anxiety Diarrhea Diarrhea Dizziness Fatigue Fatigue Fatty stools Gastric reflux Gastroenteritis Generalized anxiety disorder GERD (gastroesophageal reflux disease) H/O emotional problems Headache History of echocardiogram History of edema History of hiatal hernia History of mononucleosis History of renal disease History of stress test History of ulceration HTN (hypertension) HTN (hypertension) Incontinence Intertriginous dermatitis associated with moisture Intestinal ulcer Left ankle pain Lesion of bladder Limb weakness Loose, teeth Lung disease Mild chronic gastritis Nausea and vomiting MARGARITA (obstructive sleep apnea) MARGARITA (obstructive sleep apnea) MARGARITA (obstructive sleep apnea) Overactive bladder Overactive bladder Palpitations Palpitations Pulmonary hypertension Restless leg syndrome Shortness of breath Shoulder pain Sleep apnea Smoker SOB (shortness of breath) Stress incontinence Stress incontinence Type 2 diabetes mellitus UTI (urinary tract infection) Venous insufficiency of both lower extremities Wears glasses Home Medications Handicap Bryant #1 ea 11/28/20 [Rx Last Taken Unknown] ibuprofen 800 mg tablet 800 mg PO Q8H 01/31/22 [History Last Taken Unknown] albuterol sulfate 90 mcg/actuation breath activated powder inhaler 2 inh inhalation Q4H PRN Sob &/Or Wheezing #1 ea 03/21/22 [Rx Last Taken Unknown] blood sugar diagnostic (FreeStyle Test strips) #50 ea 08/10/22 [Rx Last Taken Unknown] blood-glucose meter (FreeStyle System Kit) #1 ea 08/10/22 [Rx Last Taken Unknown] escitalopram oxalate 5 mg tablet (Lexapro) 5 mg PO DAILY #90 tabs 08/10/22 [Rx Last Taken Unknown] lancets 28 gauge (FreeStyle Lancets) #50 ea 08/10/22 [Rx Last Taken Unknown] lisinopril 20 mg-hydrochlorothiazide 25 mg tablet 1 tab PO DAILY #90 tabs 08/10/22 [Rx Last Taken Unknown] metformin 500 mg tablet 500 mg PO DAILY #90 tabs 08/10/22 [Rx Last Taken Unknown] pantoprazole 40 mg tablet,delayed release 40 mg PO BID #180 tabs 10/25/22 [Rx Last Taken Unknown] metoprolol succinate 25 mg tablet,extended release 24 hr 25 mg PO BID #180 tabs 11/09/22 [Rx Last Taken Unknown] semaglutide 1 mg/dose (4 mg/3 mL) subcutaneous pen injector 1 mg (0.75 mL) subcut QWEEK #3 mL 11/09/22 [Rx Last Taken Unknown] ropinirole 0.5 mg tablet 0.5 mg PO QHS #30 tabs 12/03/22 [Rx Last Taken Unknown] furosemide 20 mg tablet 20 mg PO DAILY #3 tabs 12/05/22 [Rx Last Taken Unknown] prednisone 20 mg tablet 60 mg (3 x 20 mg) PO DAILY #15 TABLETS 04/19/23 [Rx Last Taken Unknown] Allergy/AdvReac Type Severity Reaction Status Date / Time cefaclor [From Ceclor] Allergy Hives Verified 05/10/23 08:56 ciprofloxacin [From Cipro] Allergy Itching Verified 05/10/23 08:56 erythromycin base Allergy Upset Verified 05/10/23 08:56 [Erythromycin Base] Stomach moxifloxacin HCl Allergy Hives Verified 05/10/23 08:56 [From Avelox] Penicillins Allergy Upset Verified 05/10/23 08:56 Stomach sulfamethoxazole Allergy Unknown Verified 05/10/23 08:56 [From Bactrim] trimethoprim [From Bactrim] Allergy Unknown Verified 05/10/23 08:56 Family History Mother CVA (cerebral vascular accident) Thyroid disorder Ulcer Arthritis Father Diabetes Heart disease Myocardial infarction Arthritis Hypertension High cholesterol Skin cancer Son , age 17 Asthma Large B-cell lymphoma Other Anxiety Melanoma Respiratory disease Surgical History History of ankle surgery History of colonoscopy History of cystoscopy History of cystoscopy History of esophagogastroduodenoscopy (EGD) (~01/20/20) History of lymph node biopsy History of partial hysterectomy History of sinus surgery History of tonsillectomy Hx of cholecystectomy Hx of cystoscopy Hx of cystoscopy Hx of hysterectomy Hx of nasal septoplasty Hx of prior ablation treatment Hx of tonsillectomy Social History household members: children Smoking Status: Current every day smoker tobacco type: cigarettes Tobacco: How many years used: 25 alcohol intake: never substance use type: does not use what type of physical activity do you participate in: none do you feel safe at home: Yes ROS ROS ED Constitutional Constitutional ED: Reports chills, fever(s) and sweats; Denies weight loss Eyes Eyes: Denies change in vision or diplopia ENT ENT ED: Reports rhinorrhea and sore throat; Denies ear pain Cardiovascular Cardiovascular: Reports chest pain; Denies orthopnea, palpitations or racing heartbeat Respiratory/Chest Respiratory/Chest: Reports cough, dyspnea, dyspnea on exertion and sputum; Denies orthopnea Gastrointestinal Gastrointestinal: Reports nausea; Denies abdominal pain, diarrhea or vomiting Genitourinary Genitourinary ED: Denies dysuria, hematuria or urinary frequency Musculoskeletal Musculoskeletal: Reports myalgias; Denies arthralgias Integumentary Denies abscess or rash Neurologic Neurologic: Denies headache(s) or weakness Psychiatric Psychiatric: Denies anxiety, depression, suicidal ideation or suicidal thoughts Endocrine Endocrinology: Denies polydipsia, polyphagia or polyuria Allergic/Immunologic Allergic/Immunologic ED: Denies mouth swelling, tongue swelling or urticaria EXAM Physical Exam Const Vital Signs: 05/10/23 08:56 05/10/23 08:58 05/10/23 09:48 Temperature 99 F 99 F Temperature Source Temporal Temporal Pulse Rate 91 91 Respiratory Rate 16 16 Respiratory Effort Normal Respiratory Depth Normal Blood Pressure 132/83 H 132/83 H Blood Pressure Mean 99 99 Pulse Ox 100 100 Oxygen Delivery Method Room Air Room Air 05/10/23 10:06 05/10/23 09:58 05/10/23 10:00 Temperature 97.6 F L 97.6 F L Temperature Source Temporal Temporal Pulse Rate 80 82 82 Respiratory Rate 18 16 16 Respiratory Effort Respiratory Depth Blood Pressure 112/71 112/71 Blood Pressure Mean 84 84 Pulse Ox 99 99 Oxygen Delivery Method Room Air Room Air 05/10/23 11:00 05/10/23 11:46 Temperature 97.7 F L Temperature Source Oral Pulse Rate 78 Respiratory Rate 14 18 Respiratory Effort Respiratory Depth Blood Pressure 105/60 Blood Pressure Mean 75 Pulse Ox 97 Oxygen Delivery Method Room Air Positive well nourished, well developed and obese General Appearance ED: well developed Nutritional Appearance: obese HEENT Reports normocephalic, head/scalp atraumatic and moist mucous membranes Eyes PERRL and EOMs intact bilaterally Neck no lymphadenopathy, supple and no JVD Resp normal respiratory effort Auscultation: wheezes expiratory wheezes (Expiratory wheezes most noticeably on the right. They are light in nature.) Cardio regular rate, regular rhythm and no murmurs GI normal to inspection, nondistended, normoactive bowel sounds and non-tender Palpation: soft Back/Spine no CVA tenderness and normal ROM Extremity normal to inspection General Extremety ED: Negative for edema General Extremity: Negative for edema Neuro oriented x3 and CN's II-XII intact bilaterally Sensorium / Orientation: alert Motor Exam: strength 5/5 throughout Psych mental status grossly normal Mood & Affect: Negative for depressed or tearful Skin no rashes or lesions noted and no wounds Skin Narrative: Patient reports hypersensitivity to touch of the anterior chest wall and neck. MDM MDM MDM Narrative Medical decision making narrative: White count 16.7. I think this is most likely due to steroid use. Troponin is 5. Blood glucose 184 with a creatinine 1.04. Sodium potassium are normal. CTA of the chest was obtained which is negative for pulmonary embolism or obvious infiltrate. EKG is a normal sinus rhythm with no ischemic changes. Patient received a dose of Toradol. Patient also had a breathing treatment ordered. I went in to review the test results with the patient when nursing informed me that the patient left the emergency department. She reportedly told nursing that we had done nothing for her in the 3 hours that she had been here. Patient had essentially normal vital signs and a workup that revealed no emergent findings. During my examination I found nothing to reveal that the patient does not have the capacity to make her own medical decisions. History & Record Review Discussion w/independent historian: Patient Additional record(s) reviewed:: Prior outpatient record, Prior ED visit and Prior labs Lab Data Attestation: I reviewed the patient's lab results. Labs: Laboratory Results - last 24 hr 05/10/23 09:40 WBC 16.7 H RBC 4.70 Hgb 13.6 Hct 41.7 MCV 88.7 MCH 28.9 MCHC 32.6 RDW Std Deviation 42.7 RDW Coeff of Saeid 13.2 Plt Count 320 MPV 10.5 Immature Gran % (Auto) 0.500 Neut % (Auto) 63.2 Lymph % (Auto) 29.9 [place] % (Auto) 4.8 Eos % (Auto) 1.2 Baso % (Auto) 0.4 Absolute Neuts (auto) 10.5 H Absolute Lymphs (auto) 4.99 H Nucleated RBC % 0 Sodium 139 Potassium 3.7 Chloride 106 Carbon Dioxide 26.0 Anion Gap 7 BUN 25 H Creatinine 1.04 H Estim Creat Clear Calc 58.88 Est GFR (MDRD) Af Amer 72 Est GFR (MDRD) Non-Af 60 BUN/Creatinine Ratio 24.0 H Glucose 184 H Calcium 9.1 Troponin I High Sens 5 Radiography Diagnostic Testing: Clinical Impression(s) from Imaging Studies Chest CTA 05/10/23 09:26 IMPRESSION: 1. No evidence of acute pulmonary embolism. 2. Bilateral pulmonary air trapping related to small airway disease. 3. 2.2 cm right lower lobe hamartoma. Electronically Signed: Jabier Birch MD at 11:21 EST , EKG Initial EKG: Attestation: I personally reviewed and interpreted this EKG as follows: Comments: Normal sinus rhythm with a ventricular rate of 87 bpm. Prior: Unchanged (14 July 2022) Discharge Plan Triage Chief Complaint: Shortness of Breath ED Provider: Chiki Guzman Dx/Rx/DC Orders Clinical Impression: COPD (chronic obstructive pulmonary disease), Chest pain, Obesity Prescriptions: No Action (DME) Handicap Placard See Rx Instructions .ROUTE .MEDSUPPLY Qty: 1 0RF Rx Instructions: As directed, length of time 3 years ibuprofen 800 mg tablet 800 mg PO Q8H metformin 500 mg tablet 500 mg PO DAILY Qty: 90 1RF (DME) FreeStyle Test Strip See Rx Instructions .ROUTE .MEDSUPPLY Qty: 50 11RF Rx Instructions: check blood glucose daily (DME) blood-glucose meter [FreeStyle System Kit] Kit See Rx Instructions .ROUTE .MEDSUPPLY Qty: 1 0RF Rx Instructions: check blood glucose daily for type 2 DM (DME) lancets [FreeStyle Lancets] 28 gauge misc See Rx Instructions .ROUTE .MEDSUPPLY Qty: 50 11RF Rx Instructions: Check blood glucose daily for type 2 DM escitalopram oxalate [Lexapro] 5 mg tablet 5 mg PO DAILY Qty: 90 1RF lisinopril-hydrochlorothiazide 20-25 mg tablet 1 tab PO DAILY Qty: 90 1RF metoprolol succinate 25 mg tablet extended release 24 hr 25 mg PO BID Qty: 180 1RF Ozempic 1 mg/dose (4 mg/3 mL) pen injector 1 mg subcut QWEEK Qty: 3 3RF furosemide 20 mg tablet 20 mg PO DAILY Qty: 3 0RF prednisone 20 mg tablet 60 mg PO DAILY Qty: 15 0RF albuterol sulfate 90 mcg/actuation aerosol powdr breath activated 2 inh INHALATION Q4H PRN (Reason: Sob &/Or Wheezing) Qty: 1 3RF pantoprazole 40 mg tablet,delayed release (DR/EC) 40 mg PO BID Qty: 180 1RF ropinirole 0.5 mg tablet 0.5 mg PO QHS Qty: 30 0RF Rx Instructions: administer 1-3 hours before bedtime Primary Care Provider: Juan Daniel Marrero Referrals: Juan Daniel Marrero, [facility] [Primary Care Provider] - Disposition Disposition: Elopement Capacity Capacity Assessment Tool Can the patient make a choice & communicate that choice?: Yes Can the patient understand benefits, risks and alternatives?: Yes Can the patient make a logical, rational choice?: Yes Is the choice the patient makes consistent w/ their values?: Yes Is there an impending, emergent risk to the patient?: No Does the patient have an Advance Directive?: Unable to Determine Is there a Surrogate Available?: Unable to Determine i.e. HCPOA: Unable to Determine i.e. close relative (spouse, child, parent, sibling)?: Unable to Determine
[2023-05-10] MEDS: 0.9% Normal Saline (1000mL) 1,000 ML 999 ML IV (09:40)
[2023-05-10] MEDS: Ketorolac 15 MG/ML Vial IV (09:40)
[2023-05-10 09:46] LABS: Absolute Lymphocyte Count 4.99 X10^3/uL (0.83-4.51); Absolute Neutrophil Count 10.5 X10^3/uL (2.0-7.7); Basophil# 0.07 X10^3/uL; Basophil% 0.4 % (0-1); Eosinophils% 1.2 % (0-5); Hematocrit 41.7 % (37-47); Hemoglobin 13.6 g/dL (12.0-15.0); Lymphocyte # 4.99 X10^3/ul (0.83-4.51); Lymphocyte % 29.9 % (19-41); Mean Corp Hgb Conc 32.6 g/dL (32-36); Mean Corpuscular Hgb 28.9 pg (27.0-32.0); Mean Corpuscular Volume 88.7 fL (81-99); Mean Platelet Vol. 10.5 fl (6.2-12.0); Monocyte% 4.8 % (0-10); NRBC Flagged by Analyzer 0 % (0-5); Neutrophil # 10.53 X10^3/uL (2.7-7.7); Neutrophil % 63.2 % (47-70); Platelet Count 320 K/mm3 (150-450); RBC Distribution Width CV 13.2 % (11.6-14.6); RBC Distribution Width SD 42.7 fl (35.1-43.9); White Blood Count 16.7 K/mm3 (4.4-11.0)
--- OUTSIDE RECORDS SUMMARY | 2023-05-10 09:55 | XMS RPT_ITS | CCD ---
Author Name Unknown Address [address] [place] [id number] Organization [facility] Care Team Providers Care Sports Medicine Trainer Name Role Phone Pippa Chamorro Attending Jarethab Ppipa Fong Admitting Unavailab Pippa Fong Primary Care Unavailab Pippa Fong Attending Unavailab Pippa Fong Primary Care Unavailab Ezequiel Schofield Primary Care Provider Sherley FRANCO, Karthik Eagle Primary Care Provider Ida FRANCO, Thuan Maxwell Primary Care Provider Unavailable Primary Care Provider Unavailabl e [facility] Attending EZEQUIEL Henderson Primary Care Unav ailable JIMBO VENEGAS Referring Unavailab SCARLET Gallegos Admitting Unavailable RAFAEL ELIZALDE Attending Unava ilDANIAL Contreras Primary Care Unavailable DICK MORALES Attending Unavailable DANIAL MATHIAS Primary Care Unavailable JIMBO VENEGAS Attending Unavailab EZEQUIEL Schofield Primary Care Unav ailable Allergies Allergy Classification Reported Allergen(s) Allergy Type Date of Onset Reaction(s) Facility Cephalosporins (antibiotic) (1 source) Cefaclor Drug Allergy 01-07-20 13 [facility] Lincosamides (antibiotic) (1 source) Clindamycin Drug Allergy 12-21-19 14 [facility] Macrolides (antibiotic) (1 source) Erythromycin Drug Allergy 01-07-20 13 [facility] (1 source) Codeine Drug Allergy 01-07-20 13 [facility] Penicillins (antibiotic) (1 source) Penicillins Drug Allergy 01-07-20 13 [facility] Quinolones (antibiotic) (1 source) moxifloxacin Drug Allergy 01-07-20 13 [facility] ([facility] source) Acetaminophen / HYDROcodone; Translations: [Vicodin] Drug Allergy [facility] Repository (1 source) Cefaclor; Translations: [Ceclor] Drug Allergy [facility] Repository (4 sources) Codeine; Translations: [codeine] Drug Allergy 01-07-20 13 Unknown [facility] Repository (4 sources) Erythromycin; Translations: [erythromycin] Drug Allergy 01-07-20 13 [facility] Repository (1 source) moxifloxacin; Translations: [Avelox] Drug Allergy [facility] Repository (6 sources) Penicillins; Translations: [penicillins] Propensity to adverse reactions to drug (disorder) 01-07-20 13 Unknown [facility] Repository (2 sources) Acetaminophen / HYDROcodone Drug Allergy 12-25-19 14 [place], [place] (5 sources) Cefaclor; Translations: [CEFACLOR] Drug Allergy 01-07-20 13 GI Upset [place], [place] (5 sources) Clindamycin; Translations: [CLINDAMYCIN] Drug Allergy 12-21-19 14 Vomiting [place], [place] (2 sources) Ketorolac Drug Allergy 09-17-19 02 Mental Status Change, GI Upset [place], [place] (4 sources) moxifloxacin; Translations: [MOXIFLOXACIN] Drug Allergy 01-07-20 13 [place], [place] (1 source) moxifloxacin Drug Allergy 01-07-20 13 [facility] Work Phone: (1 source) Sulfamethoxazole / Trimethoprim Drug Allergy 06-02-19 21 Itching [facility] (2 sources) Ciprofloxacin; Translations: [CIPROFLOXACIN] Drug Allergy 07-09-19 [facility] Repository (2 sources) Sulfamethoxazole; Translations: [SULFAMETHOXAZOLE] Drug Allergy 04-13-20 [facility] Repository (2 sources) ERYTHROMYCIN BASE; Translations: [ERYTHROMYCIN BASE] Propensity to adverse reactions to drug (disorder) 03-05-20 [facility] Repository Medications Current Medications Medication Drug Class(es) Dates Sig (Normalized) Sig (Original) acetaminophen 325 mg / oxyCODONE hydrochloride 5 mg oral tablet (1 source) Opioid Agonist Start: 11-17-2019 End: 11-20-2019 take 1 tablet by mouth every six hours as needed for pain, then take 1 tablet by mouth as needed for pain oxyCODONE-acetamino phen (PERCOCET) 5-325 MG per tablet Indications: Post-op pain Take 1 tablet by mouth every 6 hours as needed for Pain for up to 3 days. Intended supply: 3 days. Take lowest dose possible to manage pain 7 tablet 0 11/17/2019 11/20/2019 Active albuterol sulfate HFA 108 (90 Base) MCG/ACT inhaler (2 sources) Start: 08-13-2017 take 2 puff(s) by inhalation every four hours as needed albuterol sulfate HFA 108 (90 Base) MCG/ACT inhaler Inhale 2 puffs into the lungs every 4 hours as needed 0 08/13/2017 Active ALPRAZolam 0.25 mg disintegrating oral tablet (1 source) Benzodiazepine Start: 11-17-2019 ALPRAZolam (NIRAVAM) dissolvable tablet 0.25 mg ARIPiprazole 2 mg oral tablet (3 sources) Atypical Antipsychotic Start: 10-13-2019 take 1 tablet by mouth once daily in the morning ARIPiprazole (ABILIFY) 2 MG tablet TAKE 1 TABLET BY MOUTH ONCE DAILY IN THE MORNING 0 10/13/2019 Active calcium chloride 0.0014 meq/ml / potassium chloride 0.004 meq/ml / sodium chloride 0.103 meq/ml / sodium lactate 0.028 meq/ml injectable solution (1 source) Start: 11-17-2019 lactated ringers infusion 1 ml diphenhydrAMINE hydrochloride 50 mg/ml cartridge (1 source) Histamine-1 Receptor Antagonist Start: 11-17-2019 End: 11-17-2019 diphenhydrAMINE (BENADRYL) injection 12.5 mg 2 ml fentaNYL 0.05 mg/ml injection (2 sources) Opioid Agonist Start: 11-17-2019 fentaNYL (SUBLIMAZE) injection 25 mcg Completed/Discontinued Medications Medication Drug Class(es) Dates Sig (Normalized) Sig (Original) [id number] 200 actuat albuterol 0.09 mg/actuat metered dose inhaler (2 sources) beta2-Adrenergic Agonist Start: 08-13-2017 take 2 puff(s) by inhalation every four hours as needed for wheezing albuterol HFA (VENTOLIN HFA) 90 mcg/actuation inhaler Indications: Chronic obstructive pulmonary disease, unspecified COPD type (HCC) Inhale 2 Puffs as instructed every 4 hours as needed for Wheezing/Shortness of Breath. 1 Inhaler 0 08/13/2017 Active Problems Active Problems Problem Classification Problem Date Documented Date Episodic/Chronic Anxiety disorders (1 source) Anxiety; Translations: [Anxiety disorder, unspecified] Onset: 12-31-2013 12-31-2013 Chronic Chronic obstructive pulmonary disease and bronchiectasis (3 sources) Chronic obstructive lung disease; Translations: [Chronic obstructive pulmonary disease, unspecified] Onset: 12-31-2013 12-31-2013 Chronic Esophageal disorders (1 source) Gastroesophageal reflux disease; Translations: [Gastro-esophageal reflux disease without esophagitis] 11-02-2020 Chronic Essential hypertension (2 sources) Essential (primary) hypertension; Translations: [Essential (primary) hypertension] Onset: 07-09-2022 Chronic Genitourinary symptoms and ill-defined conditions (1 source) Urinary incontinence; Translations: [Unspecified urinary incontinence] Onset: 09-03-2013 09-03-2013 Chronic Other lower respiratory disease (1 source) Dyspnea on exertion; Translations: [Shortness of breath] 11-02-2020 Episodic Other nervous system disorders (1 source) Postoperative pain ; Translations: [Post-op pain] Episodic Other nutritional; endocrine; and metabolic disorders (1 source) Morbid obesity; Translations: [Morbid (severe) obesity due to excess calories] Onset: 03-09-2020 03-09-2020 Chronic Other nutritional; endocrine; and metabolic disorders (1 source) Body mass index 40+ - severely obese; Translations: [Morbid (severe) obesity due to excess calories] Onset: 09-30-2017 09-30-2017 Chronic Otitis media and related conditions (2 sources) Otitis media, unspecified, left ear; Translations: [Otitis media, unspecified, left ear] Onset: 04-14-2023 Episodic Spondylosis; intervertebral disc disorders; other back problems (1 source) Backache; Translations: [Dorsalgia, unspecified] 11-02-2020 Episodic Substance-related disorders (1 source) Substance abuse; Translations: [Other psychoactive substance abuse, uncomplicated] Onset: 04-24-2017 04-24-2017 Chronic Unclassified (1 source) Patient encounter status; Translations: [Pre-op testing] Past or Other Problems Problem Classification Problem Date Documented Da te Episodic/Chronic Abdominal pain (1 source) Right inguinal pain; Translations: [Right lower quadrant pain] Onset: 09-17-2013 09-17-2013 Episodic Disorders of teeth and jaw (3 sources) Dental caries; Translations: [Dental caries, unspecified] Onset: 01-19-2023 02-05-2023 Episodic Genitourinary symptoms and ill-defined conditions (2 sources) Blood in urine; Translations: [Hematuria, unspecified] Onset: 09-03-2013 09-03-2013 Episodic Nonspecific chest pain (4 sources) Chest pain, unspecified; Translations: [Chest pain, unspecified] Onset: 07-09-2022 Episodic Residual codes; unclassified (1 source) Forgetful; Translations: [Other general symptoms and signs] Onset: 06-27-2017 06-27-2017 Episodic Results Test Name Value Interpretation Reference Range Facil ity Vital Signs Date Time Vital Sign Value Performing Clinician Arie tierney 11-17-2019 13:15-0400 Body Temperature 97 [degF] [facility] [place] 11-17-2019 13:15-0400 BP Diastolic 75 mm[Hg] [facility] , [place] 11-17-2019 13:15-0400 BP Systolic 101 mm[Hg] [facility] , [place] 11-17-2019 13:15-0400 Pulse (Heart Rate) 76 /min [facility], [place] 11-17-2019 13:15-0400 Pulse Oximetry 94 % [facility] , [place] 11-17-2019 13:15-0400 Respiratory Rate 16 /min [facility] [place] 11-17-2019 10:19-0400 BMI (Body Mass Index) 46.97 kg/m2 [facility] [place] [place] 11-17-2019 10:19-0400 Body [facility] [place] 11-17-2019 10:19-0400 Height 167.6 cm [facility] [place] 11-16-2019 11:14-0400 BMI (Body Mass Index) 46.97 kg/m2 Khai Netmnhossein [facility] [place] 11-16-2019 11:14-0400 Body Temperature 97.7 [degF] [facility] [place] 11-16-2019 11:14-0400 Body weight 132 [facility] [place] 11-16-2019 11:14-0400 BP Diastolic 76 mm[Hg] [facility] [place] 11-16-2019 11:14-0400 BP Systolic 113 mm[Hg] [facility] [place] [facility] [place] 11-16-2019 11:14-0400 Height 167.6 cm [facility] [place] 11-16-2019 11:14-0400 Pulse (Heart Rate) 74 /min [facility] [place] 11-16-2019 11:14-0400 Pulse Oximetry 98 % [facility] [place] 11-16-2019 11:14-0400 Respiratory Rate 20 /min [facility] [place] Encounters Encounter Date Encounter Type Care Provider Facility Start: 04-14-2023 End: 04-14-2023 Emergency department patient visit RAFAEL ELIZALDE [facility] Start: 02-05-2023 Transcribe Orders Cayden OLMSTEAD Work Phone: [facility]erral [facility] Start: 01-19-2023 End: 01-19-2023 Emergency department patient visit DICK [facility] Start: 07-09-2022 End: 07-10-2022 ambulatory GENERIC [facility] Start: 07-09-2022 End: 02-27-2023 Emergency department patient visit JIMBO VENEGAS [facility] Start: 11-16-2021 ambulatory Nopcp (Historical) [facility] Start: 11-02-2020 End: 11-02-2020 Subsequent hospital visit by physician [facility]adi [facility] Start: 11-17-2019 End: 11-17-2019 Subsequent hospital visit by physician Khai Enamorado Work Phone: [facility] General Surgery Procedures Date Procedure Procedure Detail Performing Clinician Start: 11-17-2019 OPERATIVE REPORT 3m Sca nning Start: 11-16-2019 Ecg routine ecg w/le ast 12 lds w/i&r Winifred Nixon [employer] Work Phone: Start: 11-16-2019 BASIC METABOLIC PANE L W/ REFLEX TO MG FOR LOW K Winifred Nixon [place] Work Phone: Start: 11-16-2019 Blood count hemoglobin Winifred Nixon [place] Work Phone: Start: 05-22-2017 Mammography Nopcp (His torical) Start: 04-18-2017 Adult depression scr eening assessment Nopcp (Historical) Plan of Treatment Date Care Activity Detail Author Start: 2023 Shingles (RZV) Vaccine (1 of 2) Shingles (RZV) Vaccine (1 of 2) [facility] Start: 01-11-2023 Influenza vaccination Influenza Vaccine (#1) [facility] Start: 05-09-2022 HPV TESTING HPV TESTING [facility] Start: 05-09-2022 PAP TESTING PAP TESTING [facility] Start: 04-18-2022 LIPID SCREEN LIPID SCREEN [facility] Start: 01-11-2022 Influenza vaccination INFLUENZA (#1) [facility] Start: 01-27-2021 End: 01-27-2021 Patient encounter procedure 01/27/2021 Office Visit Weight Management Odette Farias, MS, RD, LD [address] [place] [address] [phone] [facility] Start: 01-11-2021 Influenza vaccination Flu vaccine (Season Ended) [facility] Work Phone: Start: 12-23-2020 End: 12-23-2020 Patient encounter procedure 12/23/2020 Office Visit Weight Management Tete Wallace MD [address] [place] [address] [phone] [facility] Start: 06-06-2020 DIABETES SCREEN DIABETES SCREEN [facility] Start: 01-12-2020 Influenza vaccination Flu vaccine (#1) [place], [place] Start: 11-17-2019 Hospital Encounter 11/17/2019 Hospital Encounter General Surgery Khai Enamorado MD [address] [place] [address] [phone] [facility] Start: 10-20-2019 Annual Wellness Visit (AWV) Annual Wellness Visit (AWV) [place], [place] Start: 09-12-2018 ANNUAL PCP TEAM CHRONIC DISEASE VISIT ANNUAL PCP TEAM CHRONIC DISEASE VISIT [facility] Start: 2018 Cholesterol [Mass/volume] in Serum or Plasma Cholesterol [facility] Start: 2018 COLOGUARD (FIT-DNA) COLOGUARD (FIT-DNA) [facility] Start: 2018 Colonoscopy COLONOSCOPY [facility] Start: 2018 COLORECTAL CANCER SCREENING COLORECTAL CANCER SCREENING [facility] Start: [address] COLONOGRAPHY [facility] Start: 2018 FECAL OCCULT BLOOD FECAL OCCULT BLOOD [facility] Start: 2018 Screening for malignant neoplasm of colon [facility] Start: 2018 SIGMOIDOSCOPY SIGMOIDOSCOPY [facility] Start: 05-22-2018 Mammography MAMMOGRAM [facility] Start: 04-18-2018 Adult depression screening assessment DEPRESSION SCREENING [facility] Start: 2013 Diabetes screen Diabetes screen [place], [place] Start: 2013 Lipid panel Lipid screen [place] Start: 2013 Screening for malignant neoplasm of breast Mammography [facility] Start: 1994 Screening for malignant neoplasm of cervix [facility] Start: 1992 DTaP/Tdap/Td vaccine (1 - Tdap) DTaP/Tdap/Td vaccine (1 - Tdap) [place] Start: 1992 Tetanus vaccination Tetanus (Td or Tdap) Booster [facility] Start: 1992 Urine microalbumin profile DTAP,TDAP,TD (1 - Tdap) [facility] Start: 1991 HEPATITIS C SCREENING HEPATITIS C SCREENING [facility] Start: 1991 Hepatitis C screening Hepatitis C Antibody [facility] Start: 1991 HIV SCREENING HIV SCREENING [facility] Start: 1991 SPIROMETRY SPIROMETRY [facility] Start: 1991 Tetanus + diphtheria + acellular pertussis vaccine (product) Tdap Booster [facility] Start: 1988 HIV screening [facility] Start: 1985 COVID-19 Vaccine (1) COVID-19 Vaccine (1) [facility] Work Phone: Start: 1979 PNEUMOCOCCAL (1 - PCV) PNEUMOCOCCAL (1 - PCV) [facility] Start: 1979 Pneumococcal 0-64 years Vaccine (1 of 1 - PPSV23) Pneumococcal 0-64 years Vaccine (1 of 1 - PPSV23) [place] Start: 1979 Pneumococcal 0-64 years Vaccine (1 of 2 - PPSV23) Pneumococcal 0-64 years Vaccine (1 of 2 - PPSV23) [facility] Work Phone: Start: 1973 COVID-19 VACCINE (#1) COVID-19 VACCINE (#1) [facility] Start: 1973 COVID-19 Vaccine ([id number] formulation) COVID-19 Vaccine ([id number] formulation) [facility] Start: 1973 Hepatitis C screening Hepatitis C screen [facility] Work Phone: Start: 1973 Screening for malignant neoplasm of colon [facility] End: 11-17-2019 Blood glucose - POCT Blood glucose - POCT Point of Care Testing STAT One Time for 1 Occurrences starting 11/17/2019 until 11/17/2019 [place], [place] Payers Date Payer Category Payer Medicaid MEDICAID [facility] MEDICAID [id number] 2020-Present [phone] [address] [place] [address] Medicaid [id number] 2019 Medicare [id number] 2019 Unknown ANTHSOPHIA BLUE CROS S AND BLUE SHIELD ANTHSOPHIA MASTERSUE O [id number] 2019-Present [phone] [address] [place] [address] O [id number] 2018 Medicare xxxxxxxxxxxx [id number] 2018 Medicaid 2018 Medicare 2018 Medicaid [id number] 1973 Unknown [id number] 1973 Unknown [id number] 1973 Unknown [id number] 1973 Unknown [id number] 1973 Unknown [id number] 1973 Unknown [id number] Social History Date Type Detail Facility Start: 01-06-2013 End: 11-16-2019 Tobacco smoking status COIS Current every day smoker [facility] Work Phone: History of tobacco use Cigarette Smoker MAURICIO Rahman Start: 01-06-2013 End: 11-16-2019 Cigarettes smoked current (pack per day) - Reported MAURICIO Amado Start: 11-16-2019 End: 06-02-2020 Alcohol intake Ex-drinker (finding) Sindhu Amado Y Start: 1975 Sex Assigned At Not on file MAURICIO Rahman Exposure to SARS-CoV -2 (event) Unable to assess MAURICIO Amado Start: 01-06-2013 End: 11-02-2020 Tobacco use and exposure Never used [facility] Gender identity Not on file [facility] History of Present illness Narrative 11-16-2021 Donna Grande - 11/16/2021 10:41 AM EDT Note Date & Type Note Facility 11-16-2021 History of Presen t illness Narrative POPULATION HEALTH NAVIGATION OUTREACH Action/FYI Working COPD_CKD_PCP outreach - Spoke with patient said she does not come to [facility] for primary care any longer - pt declined scheduling Pt identified by name and : YES, via phone Outreach Outcome/Action Spoke to patient or caregiver: Patient declined Did you use a PCP flex slot to schedule this appointment? No Reason for Outreach Care Gap or Scheduling/Wellness visits Payer: Payor: KHANH [employer] / Plan: [employer] HMO / Product Type: HMO / Care Gap Reviewed:: COPD_CKD_PCP Reminder: Reminder note to check Health Maintenance for items below Health Maintenance items due: COVID-19 VACCINE(1) Never done PNEUMOCOCCAL(1 - PCV) Never done SPIROMETRY Never done HEPATITIS C SCREENING Never done HIV SCREENING Never done DTAP,TDAP,TD(1 - Tdap) Never done DEPRESSION SCREENING due on 04/18/2018 MAMMOGRAM due on 05/22/2018 COLORECTAL CANCER SCREENING Never done ANNUAL PCP TEAM CHRONIC DISEASE VISIT due on 09/12/2018 DIABETES SCREEN due on 06/06/2020 PAP TESTING due on 05/09/2022 HPV TESTING due on 05/09/2022 Message Sent to Practice: No Navigation Signature: Donna Grande November 16, 2021 10:41 AM documented in this encounter [facility] Evaluation note Note Date & Type Note [facility] Purpose Family History No Family History Records FoundNo Family History Records FoundNo Family History Records FoundNo Family History Records FoundNo Family History Records FoundNo Family History Records FoundNo Family History Records FoundNo Family History Records Found Advance Directives No Advanced Directives Records FoundDocuments on File Type Date Recorded Patient Food Processing Chemist Expl anation Advance Directives and Living Will Power of Director Of Exhibits Latest Code Status on File Code Status Date Activated Date Inactivated Comments Full Code 11/17/2019 10:19 AM Documents on File Type Date Recorded Patient Food Processing Chemist Expl anation ACP-Advance Directive ACP-Power of Director Of Exhibits Latest Code Status on File Code Status Date Activated Date Inactivated Comments Full Code 11/17/2019 10:19 AM 11/17/2019 4:23 PM Documents on File Type Date Recorded Patient Food Processing Chemist Expl anation Advance Directive(s) 06/18/2020 8:29 AM Discharge Instructions * Instructions* Uzma Noble RN - 11/16/2019 Please bring your [facility] Surgical Information folder on the day of surgery. Please danial the last dose taken (date and time ) on your Daily Medications List provided in your After Visit Summary. Please bring a photo ID and insurance information TAKE the following medications the morning of your surgery - Vilazodone, Abilify You may take your prescription pain medications. You may take Tylenol (Acetaminophen) if needed forpain. No Motrin, Ibuprofen, or Advil 24 hours prior to surgery, or longer if instructed by your surgeon. No Aleve or Naprosyn 3 days prior to surgery, or longer if instructed by your surgeon. If you are on BLOOD THINNERS or ASPIRIN - Additional instructions - Follow all instructions given to you by Dr. Enamorado. You will receive a reminder call the day before surgery with your Same Day Surgery arrival time. If you have specific questions, please call your surgeon. * Attachments The following attachments cannot be sent through Care Everywhere. * Cystoscopy: Pre-op (Macedonian) * Ureteroscopy: Pre-op (Macedonian) documented in this encounter* Instructions* David Colon MD - 11/17/2019 Ureteroscopy: What to Expect at Home Your Recovery Most people are able to go home the same day of the procedure. But you may need to stay in the hospital. If you do, the stay is usually no more than 24 to 48 hours. For several hours after the procedure you may have a burning feeling when you urinate. This feelingshould go away within a day. Drinking a lot of water can help. Your doctor also may advise you to take medicine that numbs the burning. This medicine is called phenazopyridine. It is available by prescription and over the counter. Brand names include Pyridium and Uristat. You may have some blood in your urine for 2 or 3 days. Your doctor may prescribe an antibiotic for a day or two. This will help prevent an infection. This care sheet gives you a general idea about how long it will take for you to recover. But each person recovers at a different pace. Follow the steps below to feel better as quickly as possible. How can you care for yourself at home? Activity You can go back to work and other activities the next day. Diet Try to drink two 8-ounce glasses of water each hour for 2 hours after the procedure. This may help ease the burning when you urinate. Medicines Your doctor will tell you if and when you can restart your medicines. He or she will also give you instructions about taking any new medicines. If you take aspirin or some other blood thinner, ask your doctor if and when to start taking it again. Make sure that you understand exactly what your doctor wants you to do. If you take medicine to stop the burning when you urinate, take it exactly as recommended. Be safe with medicines. Call your doctor if you think you are having a problem with your medicine. You will get more details on the specific medicine your doctor recommends. If your doctor prescribed antibiotics, take them as directed. Do not stop taking them just because you feel better. You need to take the full course of antibiotics. Ask your doctor if you can take an stne-xkr-lsrxsmn pain medicine, such as acetaminophen (Tylenol),ibuprofen (Advil, Motrin), or naproxen (Aleve). Read and follow all instructions on the label. Do not take two or more pain medicines at the same time unless the doctor told you to. Many pain medicines have acetaminophen, which is Tylenol. Too much acetaminophen (Tylenol) can be harmful. Heat Take a warm bath. This may soothe the burning. You also can hold a warm washcloth over your urethra for comfort. (The urethra is where your urine comes out.) Follow-up care is a dupont part of your treatment and safety. Be sure to make and go to all appointments, and call your doctor if you are having problems. It's also a good idea to know your test resultsand keep a list of the medicines you take. When should you call for help? [id number] anytime you think you may need emergency care. For example, call if: You passed out (lost consciousness). You have chest pain, are short of breath, or cough up blood. Call your doctor now or seek immediate medical care if: You have pain that does not get better after you take pain medicine. You have new or more blood clots in your urine. (It is normal for the urine to be pink for a few days.) You cannot urinate. You have symptoms of a urinary tract infection. These may include: ? Pain or burning when you urinate. ? A frequent need to urinate without being able to pass much urine. ? Pain in the flank, which is just below the rib cage and above the waist on either side of the back. ? Blood in the urine. ? A fever. You are sick to your stomach or cannot drink fluids. You have signs of a blood clot in your leg (called a deep vein thrombosis), such as: ? Pain in the calf, back of the knee, thigh, or groin. ? Redness and swelling in your leg. Watch closely for changes in your health, and be sure to contact your doctor if you are having any problems. Where can you learn more? Go to [email or web address] and sign in to your [employer] account. Enter P672 in the Search Health Information box to learn more about Ureteroscopy: What to Expect at Home. If you do not have an account, please click on the Sign Up Now link. Current as of: December 22, 2018 Content Version: 12.20057194-1635 [employer]. Care instructions adapted under license by [employer]. If you have questions about a medical condition or this instruction, always ask your healthcare professional. [employer] disclaims any warranty or liability for your use of this information. Cystoscopy: What to Expect at Home Your Recovery A cystoscopy is a procedure that lets a doctor look inside of the bladder and the urethra. The urethra is the tube that carries urine from the bladder to outside the body. The doctor uses a thin, lighted tool called a cystoscope. Your bladder is filled with fluid. This stretches the bladder so thatyour doctor can look closely at the inside of your bladder. After the cystoscopy, your urethra may be sore at first, and it may burn when you urinate for the first few days after the procedure. You may feel the need to urinate more often, and your urine may be pink. These symptoms should get better in 1 or 2 days. You will probably be able to go back to most of your usual activities in 1 or 2 days. This care sheet gives you a general idea about how long it will take for you to recover. But each person recovers at a different pace. Follow the steps below to get better as quickly as possible. How can you care for yourself at home? Activity Rest when you feel tired. Getting enough sleep will help you recover. Try to walk each day. Start by walking a little more than you did the day before. Bit by bit, increase the amount you walk. Walking boosts blood flow and helps prevent pneumonia and constipation. Avoid strenuous activities, such as bicycle riding, jogging, weight lifting, or aerobic exercise, until your doctor says it is okay. Ask your doctor when you can drive again. Most people are able to return to work within 1 or 2 days after the procedure. You may shower and take baths as usual. Ask your doctor when it is okay for you to have sex. Diet You can eat your normal diet. If your stomach is upset, try bland, low-fat foods like plain rice, broiled chicken, toast, and yogurt. Drink plenty of fluids (unless your doctor tells you not to). Medicines Take pain medicines exactly as directed. ? If the doctor gave you a prescription medicine for pain, take it as prescribed. ? If you are not taking a prescription pain medicine, ask your doctor if you can take an jplr-fad-cnxjxlg medicine. If you think your pain medicine is making you sick to your stomach: ? Take your medicine after meals (unless your doctor has told you not to). ? Ask your doctor for a different pain medicine. If your doctor prescribed antibiotics, take them as directed. Do not stop taking them just because you feel better. You need to take the full course of antibiotics. Follow-up care is a dupont part of your treatment and safety. Be sure to make and go to all appointments, and call your doctor if you are having problems. It's also a good idea to know your test resultsand keep a list of the medicines you take. When should you call for help? [id number] anytime you think you may need emergency care. For example, call if: You passed out (lost consciousness). You have severe trouble breathing. You have sudden chest pain and shortness of breath, or you cough up blood. You have severe belly pain. Call your doctor now or seek immediate medical care if: You are sick to your stomach or cannot keep fluids down. Your urine is still red or you see blood clots after you have urinated several times. You have trouble passing urine or stool, especially if you have pain or swelling in your lower belly. You have signs of a blood clot, such as: ? Pain in your calf, back of the knee, thigh, or groin. ? Redness and swelling in your leg or groin. You develop a fever or severe chills. You have pain in your back just below your rib cage. This is called flank pain. Watch closely for changes in your health, and be sure to contact your doctor if: You have pain or burning when you urinate. A burning feeling is normal for a day or two after the test, but call if it does not get better. You have a frequent urge to urinate but can pass only small amounts of urine. Your urine is pink, red, or cloudy, or smells bad. It is normal for the urine to have a pinkish color for a few days after the test, but call if it does not get better. Where can you learn more? Go to [email or web address] and sign in to your [employer] account. Enter C842 in the Search Health Information box to learn more about Cystoscopy: What to Expect at Home. If you do not have an account, please click on the Sign Up Now link. Current as of: January 01, 2019 Content Version: 12.5 3338-9282 [employer]. Care instructions adapted under license by [employer]. If you have questions about a medical condition or this instruction, always ask your healthcare professional. [employer] disclaims any warranty or liability for your use of this information. documented in this encounter History of Present Illness * Uzma Noble RN - 11/16/2019 11:00 AM EDT Informed pt of need to refrain from smoking, vaping, using snuff or chew for 24 hours before surgery. Informed pt of anesthesia's right to cancel surgery if they have used these products. Pt verbalizes understanding. documented in this encounter* Frances Christopher RN - 11/17/2019 1:43 PM EDT 1334 went over dischartge instructions with pt and friend walked without diff DC'd IV held pressuretil bleeding stopped bandiade dressed Discharge information given to the patient. Patient and family verbalized understanding of information. All questions were answered before discharge. Patient ambulated, denies dizziness or nausea. Tolerating PO fluids and crackers. Vital signs are stable. Patient has changed and is being discharged home in a wheelchair with valuables. * Frances Christopher RN - 11/17/2019 1:05 PM EDT Went over discharge instrucitons with pt and friend meds to beds delivered * Frances Christopher RN - 11/17/2019 12:12 PM EDT 1205 received from OR on cart drowsy ease awakens maew no bleeding noted from meatus documented in this encounter Assessments Diagnosis Pre-op testing Preoperative examination, unspecified Diagnosis Post-op pain Other acute postoperative pain Reason for Referral Specialty Diagnoses / Procedures Referred By Kimberly rizvi Referred To Contact Oral Surgery Diagnoses Dental caries Cayden Montez DDS [address] [place] [address] [facility] SUR[facility]ERY [address] [place] [address] Referral ID Status Reason Start Date Expiration Date V isits Requested Visits Authorized [id number] Pending Review 02/05/2023 02/06/2024 3 3 Scheduling Instructions Please call the medical reception specialist Clinic at [facility] at to schedule an appointment if one was not made for you today. Question Answer Patient to be evaluated for: Extractions Tooth Number for Extraction #6-9, 21-24 Comments W/ IVS Additional Source Comments INFORMATION SOURCE (unrecogn ized section and content) DATE CREATED AUTHOR AUTHOR'S ORGANIZ ATION 12/25/2019 [facility] DATE CREATED AUTHOR AUTHOR'S ORGANIZ ATION 02/18/2020 [facility] DATE CREATED AUTHOR AUTHOR'S ORGANIZ ATION 06/22/2020 [facility] DATE CREATED AUTHOR AUTHOR'S ORGANIZ ATION 11/05/2020 [facility] DATE CREATED AUTHOR AUTHOR'S ORGANIZ ATION 03/28/2023 [facility] DATE CREATED AUTHOR AUTHOR'S ORGANIZ ATION 04/16/2023 [facility] DATE CREATED AUTHOR AUTHOR'S ORGANIZ ATION 04/22/2023 [facility] Source Comments (unrecognize d section and content) In the event this informatio n is protected by the Federal Confidentiality of Alcohol and Drug Abuse Patient Records regulations: The Federal rules restrict any use of the information to criminally investigate or prosecute any alcohol or drug abuse patient.[facility] Care Teams (unrecognized sec tion and content) FOR RECORDS PERTAINING TO PATIENTS WHO ARE OR HAVE BEEN ENROLLED IN A CHEMICAL DEPENDENCY/SUBSTANCEABUSE PROGRAM, SOME INFORMATION MAY BE OMITTED. This clinical summary was aggregated from multiple sources. Caution should be exercised in using it in the provision of clinical care. This summary normalizes information from multiple sources, and as a consequence, information in this document may materially change the coding, format and clinical context of patient data. In addition, data may be omitted in some cases. CLINICAL DECISIONS SHOULD BE BASED ON THE PRIMARY CLINICAL RECORDS. [facility]. provides no warranty or guarantee of the accuracy or completeness of information in this document.
[2023-05-10 10:05] LABS: Anion Gap 7 (5-15); BUN 25 mg/dL (7-18); Calcium,Total 9.1 mg/dL (8.5-10.1); Chloride 106 mmol/L (98-107); Creatinine, Serum 1.04 mg/dL (0.55-1.02); EST Glomerular Filtration Rate 60 mL/min (>60); Est Glom Filt Rate - Afr Amer 72 mL/min (>60); Estimated Creatinine Clearance 58.88 ml/min; Glucose 184 mg/dL (74-106); Potassium 3.7 mmol/L (3.5-5.1); Sodium Level 139 mmol/L (136-145); Troponin-I HS 5 pg/mL (3.0-54.0)
[2023-05-10] MEDS: Ipratropium/Albuterol Sulfate 3 ML AMPUL.NEB INHALATION (10:06)
--- NOTE | 2023-05-10 11:41 | ED.RN ---
THIS RN WENT IN TO SPEAK TO PT WHEN SHE PUT HER CALL LIGHT ON. PT STATES SHE CAN FEEL THIS MISERABLE AT HOME. WE HAVE DONE NOTHING FOR HER IN 3 HOURS.I WANT TO GO HOME. THIS RN STATES SHE ASKED THE PHYSICIAN FOR PAIN MEDS WHEN SHE REQUESTED THEM BUT THE DOCTOR HAS BEEN IN WITH SEVERAL OTHER PTS WELL AND WORKING FAST THEY CAN. PT STATES AT THIS POINT SHE JUST WANTS TO GO HOME. DR. HADLEY NOTIFIED.
== END 2023-05-10 11:40 | disposition left against medical advice (07) ==
PROVIDERS: Emergency Provider Emergency Medicine; PCP Nurse Practitioner Family; Visit Provider Emergency Medicine
DX: J44.9 Chronic obstructive pulmonary disease, unspecified (principal); R07.9 Chest pain, unspecified; E66.9 Obesity, unspecified; F17.210 Nicotine dependence, cigarettes, uncomplicated; G47.33 Obstructive sleep apnea (adult) (pediatric); Z86.16 Personal history of COVID-19
CPT/HCPCS: 71275; 80048; 84484; 85025; 93005; 96361; 96374; 99284; J7030; Q9967; A4216

== ENCOUNTER → 2023-08-14 | Outpatient (CLI) | payer MEDICARE, MEDICAID, SELFPAY ==
[2023-08-14 12:57] LABS: Absolute Lymphocyte Count 3.16 X10^3/uL (0.83-4.51); Absolute Neutrophil Count 8.4 X10^3/uL (2.0-7.7); Basophil# 0.08 X10^3/uL; Basophil% 0.6 % (0-1); Eosinophil# 0.47 X10^3/uL; Eosinophils% 3.7 % (0-5); Hematocrit 42.2 % (37-47); Hemoglobin 13.7 g/dL (12.0-15.0); Lymphocyte # 3.16 X10^3/ul (0.83-4.51); Lymphocyte % 24.6 % (19-41); Mean Corp Hgb Conc 32.5 g/dL (32-36); Mean Corpuscular Volume 89.4 fL (81-99); Mean Platelet Vol. 10.3 fl (6.2-12.0); Monocyte# 0.52 X10^3/uL; Monocyte% 4.1 % (0-10); NRBC Flagged by Analyzer 0 % (0-5); Neutrophil # 8.43 X10^3/uL (2.7-7.7); Neutrophil % 65.7 % (47-70); Platelet Count 319 K/mm3 (150-450); RBC Distribution Width CV 13.2 % (11.6-14.6); Red Blood Count 4.72 M/mm3 (4.2-5.4); White Blood Count 12.8 K/mm3 (4.4-11.0)
[2023-08-14 13:38] LABS: ALB/GLOB Ratio 0.9 RATIO (0.9-2.4); AST(SGOT) 44 U/L (15-37); Alanine Aminotransfer ALT/SGPT 41 U/L (13-56); Albumin, Serum 3.6 g/dL (3.2-5.0); Alkaline Phosphatase 103 U/L (45-117); Anion Gap 7 (5-15); BUN 22 mg/dL (7-18); Calcium,Total 9.3 mg/dL (8.5-10.1); Chloride 104 mmol/L (98-107); Creatinine, Serum 1.16 mg/dL (0.55-1.02); EST Glomerular Filtration Rate 53 mL/min (>60); Est Glom Filt Rate - Afr Amer 64 mL/min (>60); Glucose 168 mg/dL (74-106); Protein, Total 7.6 g/dL (6.4-8.2); Sodium Level 135 mmol/L (136-145)
== END | disposition home or self-care (01) ==
LOC: LAB 12:21
PROVIDERS: PCP Nurse Practitioner Family; Referring Provider Nurse Practitioner Family; Visit Provider Nurse Practitioner Family
DX: K52.9 Noninfective gastroenteritis and colitis, unspecified (principal)
CPT/HCPCS: 36415; 80053; 85025

== ENCOUNTER → 2023-08-21 | Outpatient (CLI) | payer MEDICARE, MEDICAID, SELFPAY ==
[2023-08-21 11:35] LABS: Thyroid Stim Hormone (TSH) 2.51 uIU/mL (0.358-3.74)
== END | disposition home or self-care (01) ==
LOC: LAB 10:35
PROVIDERS: PCP Nurse Practitioner Family; Referring Provider Nurse Practitioner Family; Visit Provider Nurse Practitioner Family
DX: K52.9 Noninfective gastroenteritis and colitis, unspecified (principal); R63.5 Abnormal weight gain
CPT/HCPCS: 36415; 84443

== ENCOUNTER → 2023-08-22 | Outpatient (CLI) | payer MEDICARE, MEDICAID, SELFPAY ==
[2023-08-22 11:20] LABS: Absolute Lymphocyte Count 3.24 X10^3/uL (0.83-4.51); Absolute Neutrophil Count 7.1 X10^3/uL (2.0-7.7); Basophil# 0.07 X10^3/uL; Basophil% 0.6 % (0-1); Eosinophil# 0.43 X10^3/uL; Eosinophils% 3.8 % (0-5); Hematocrit 43.4 % (37-47); Lymphocyte # 3.24 X10^3/ul (0.83-4.51); Lymphocyte % 28.6 % (19-41); Mean Corp Hgb Conc 32.3 g/dL (32-36); Mean Corpuscular Hgb 29.2 pg (27.0-32.0); Mean Corpuscular Volume 90.4 fL (81-99); Mean Platelet Vol. 10.3 fl (6.2-12.0); Monocyte# 0.48 X10^3/uL; Monocyte% 4.2 % (0-10); NRBC Flagged by Analyzer 0 % (0-5); Neutrophil # 7.05 X10^3/uL (2.7-7.7); Neutrophil % 62.2 % (47-70); Platelet Count 323 K/mm3 (150-450); White Blood Count 11.3 K/mm3 (4.4-11.0)
[2023-08-22 11:48] LABS: ALB/GLOB Ratio 0.9 RATIO (0.9-2.4); AST(SGOT) 28 U/L (15-37); Alanine Aminotransfer ALT/SGPT 36 U/L (13-56); Albumin, Serum 3.7 g/dL (3.2-5.0); Alkaline Phosphatase 122 U/L (45-117); Anion Gap 4 (5-15); BUN 17 mg/dL (7-18); BUN/Creat Ratio 18.3 RATIO (10-20); Calcium,Total 9.8 mg/dL (8.5-10.1); Chloride 109 mmol/L (98-107); Creatinine, Serum 0.93 mg/dL (0.55-1.02); EST Glomerular Filtration Rate 68 mL/min (>60); Est Glom Filt Rate - Afr Amer 82 mL/min (>60); Globulin 4.3 g/dL (2.2-4.2); Glucose 162 mg/dL (74-106); Magnesium 2.2 mg/dL (1.6-2.6); Potassium 4.1 mmol/L (3.5-5.1); Sodium Level 138 mmol/L (136-145)
== END | disposition home or self-care (01) ==
LOC: LAB 10:47
PROVIDERS: PCP Nurse Practitioner Family; Visit Provider Nurse Practitioner Family
DX: R55 Syncope and collapse (principal)
CPT/HCPCS: 36415; 80053; 83735; 85025

== ENCOUNTER → 2023-08-29 | Outpatient (CLI) | payer MEDICARE, MEDICAID, SELFPAY ==
[2023-08-29 12:17] LABS: AST(SGOT) 29 U/L (15-37); Alanine Aminotransfer ALT/SGPT 40 U/L (13-56); Albumin, Serum 3.5 g/dL (3.2-5.0); Alkaline Phosphatase 126 U/L (45-117); Globulin 4.3 g/dL (2.2-4.2); Protein, Total 7.8 g/dL (6.4-8.2)
== END | disposition home or self-care (01) ==
LOC: LAB 11:00
PROVIDERS: PCP Nurse Practitioner Family; Referring Provider Surgery; Visit Provider Surgery
DX: R10.13 Epigastric pain (principal)
CPT/HCPCS: 36415; 80076

== ENCOUNTER 2023-09-05 08:44 | Day surgery (SDC) | payer MEDICARE, MEDICAID, SELFPAY ==
[2023-09-05] VITALS (10 sets, daily range): BP systolic 89–120; BP diastolic 48–89; PULSE 74–92; RESP 16–18; TEMP 36.4–36.8; O2SAT 95–98; BMI 50.9
[2023-09-05] MEDS: Lactated Ringers 1,000 ML 15 ML IV (09:51)
[2023-09-05 10:15] LABS: Bedside Glucose 194 mg/dL (74-106)
--- NOTE | 2023-09-05 11:25 | EX.PCM.DISCH ---
Discharge Instructions Diet Discharge Diet: No restrictions Activity Discharge Activity: Return to Normal Activity Dressing / Incision Call your doctor if you observe: Fever of 101 or Higher, Inability to urinate and Inability to have a bowel movement Follow Up Care Please Follow Up With: Luisa Mendez MD When: 1 week in the office. Please complete the Macrobid. Test Results: Test results from this visit will be discussed in further detail at your follow-up appointment, if applicable. Discharge Plan Admission Attending Provider: Luisa Mendez Primary Care Provider: Juan Daniel Marrero Discharge Orders/Prescriptions Prescriptions: Continued (DME) Handicap Placard See Rx Instructions .ROUTE .MEDSUPPLY Qty: 1 0RF Rx Instructions: As directed, length of time 3 years (DME) FreeStyle Test Strip See Rx Instructions .ROUTE .MEDSUPPLY Qty: 50 11RF Rx Instructions: check blood glucose daily (DME) blood-glucose meter [FreeStyle System Kit] Kit See Rx Instructions .ROUTE .MEDSUPPLY Qty: 1 0RF Rx Instructions: check blood glucose daily for type 2 DM (DME) lancets [FreeStyle Lancets] 28 gauge misc See Rx Instructions .ROUTE .MEDSUPPLY Qty: 50 11RF Rx Instructions: Check blood glucose daily for type 2 DM metoprolol succinate 25 mg tablet extended release 24 hr 25 mg PO BID Qty: 180 1RF gabapentin 300 mg capsule 300 mg PO TID ascorbic acid (vitamin C) 500 mg tablet 500 mg PO DAILY cholecalciferol (vitamin D3) [Vitamin D3] 125 mcg (5,000 unit) tablet 250 mcg PO DAILY cyanocobalamin (vitamin B-12) [Vitamin B-12] 500 mcg tablet 500 mcg PO DAILY ibuprofen [IBU] 600 mg tablet 600 mg PO Q8H PRN PRN (Reason: pain) albuterol sulfate 90 mcg/actuation aerosol powdr breath activated 2 inh INHALATION Q4H PRN (Reason: Sob &/Or Wheezing) Qty: 1 3RF pantoprazole 40 mg tablet,delayed release (DR/EC) 40 mg PO BID Qty: 180 1RF Referrals / Follow Up: Juan Daniel Marrero, DELIVERY DRIVER/CUSTOMER SERVICE-C [Primary Care Provider] - Disposition Disposition (needs filled in before D/C Order can be placed): Home, Self Care
[2023-09-05] MEDS: 0.9% Normal Saline (Pres. free 10 ML Vial (11:33)
[2023-09-05] MEDS: Botulinum Toxin A 100 Units Vial IJ (11:33)
--- NOTE | 2023-09-05 11:37 | PCM.OPRPT ---
Report of Operation Date of Procedure: 09/05/23 Pre-Operative Diagnosis: overactive bladder, urge incontinence Post-Operative Diagnosis: same Surgery/Procedure Performed:: cystoscopy with Botox 100units Surgeon: Luisa Mendez Type of Anesthesia: MAC Special Medications: Botox 100 units Description of Procedure: The patient is a 48-year-old female with overactive bladder and urge incontinence who has done very well on Botox 100 units. She had her last injection almost 2 years ago. Informed consent was obtained. She was taken to the operating room and placed on the operating room table. Anesthesia monitored the head, neck, airway, IV access and vital signs throughout the case. Once anesthesia was appropriately administered, she was placed into dorsolithotomy position and was prepped and draped in usual sterile fashion. The cystoscope was inserted through the urethra under direct visualization into the urinary bladder. The bladder mucosa was visualized revealing no evidence of mass, erythema, ulceration or foreign body. Using the cystoscopic needle, Botox was injected systematically with 0.5 cc/inj. A total of 20 injections were performed. The patient's bladder was then emptied and the cystoscope was removed. She was awakened and taken to the recovery room in good condition. There were no complications during this procedure. Grafts/Implants Used: none Complications none Admit VTE Documentation VTE Present on Admission: Yes VTE Mechan Device Prophylaxis: SCD's VTE Pharm Prophylaxis ordered?: No Reason prophylaxis not ordered:: Treatment Not Indicated
[2023-09-05] MEDS: Phenazopyridine 95 MG Tablet 190 MG PO (12:09)
[2023-09-05] MEDS: Morphine 2 MG/ML Syringe IV (12:50)
[2023-09-05] MEDS: oxyCODONE 5 MG Tablet PO (12:54)
--- NOTE | 2023-09-20 11:18 | PCM.HP.STD ---
HPI - General General Date of Service: 09/05/23 Chief Complaint: overactive bladder HPI Narrative RAKESH HEARN, is a 48 F who presents for repeat injection Botox 100 units for management of her overactive bladder and urge incontinence. There is no evidence of urinary tract infection, preoperative urine culture was done. Questions were answered and informed consent was obtained. [facility] Medical History Abdominal pain Abdominal wall abscess Acute thoracic back pain Anxiety Anxiety and depression Arthritis Asthma Back pain BiPAP (biphasic positive airway pressure) dependence Bladder disease Bronchitis Cancer of left kidney Cervical radiculopathy Chronic back pain Chronic cough Complete edentulism, class III COPD (chronic obstructive pulmonary disease) COPD (chronic obstructive pulmonary disease) Costochondritis Depression Depression with anxiety Diabetes Diarrhea Dietary restriction Dizziness Fatigue Fatigue Fatty liver Fatty stools Gastric reflux Gastroenteritis Generalized anxiety disorder GERD (gastroesophageal reflux disease) H/O emotional problems Headache History of echocardiogram History of edema History of hiatal hernia History of mononucleosis History of renal disease History of stress test History of ulceration HTN (hypertension) HTN (hypertension) Intertriginous dermatitis associated with moisture Intestinal ulcer Left ankle pain Lesion of bladder Nausea and vomiting MARGARITA (obstructive sleep apnea) MARGARITA (obstructive sleep apnea) MARGARITA (obstructive sleep apnea) Overactive bladder Overactive bladder Palpitations Palpitations Pulmonary hypertension Restless leg syndrome Shortness of breath Smoker Stress incontinence Stress incontinence Type 2 diabetes mellitus UTI (urinary tract infection) Venous insufficiency of both lower extremities Wears glasses Home Medications Handicap Placard #1 ea 11/28/20 [Rx Last Taken Unknown] albuterol sulfate 90 mcg/actuation breath activated powder inhaler 2 inh inhalation Q4H PRN Sob &/Or Wheezing #1 ea 03/21/22 [Rx Last Taken 09/16/23] blood sugar diagnostic (FreeStyle Test strips) #50 ea 08/10/22 [Rx Last Taken Unknown] blood-glucose meter (FreeStyle System Kit) #1 ea 08/10/22 [Rx Last Taken Unknown] lancets 28 gauge (FreeStyle Lancets) #50 ea 08/10/22 [Rx Last Taken Unknown] pantoprazole 40 mg tablet,delayed release 40 mg PO BID #180 tabs 10/25/22 [Rx Last Taken 09/16/23] metoprolol succinate 25 mg tablet,extended release 24 hr 25 mg PO BID #180 tabs 11/09/22 [Rx Last Taken 09/17/23] gabapentin 300 mg capsule 300 mg PO TID 08/27/23 [History Last Taken 09/16/23] ascorbic acid (vitamin C) 500 mg tablet 500 mg PO DAILY 08/30/23 [History Last Taken Unknown] cholecalciferol (vitamin D3) 125 mcg (5,000 unit) tablet (Vitamin D3) 250 mcg PO DAILY 08/30/23 [History Last Taken 09/16/23] cyanocobalamin (vitamin B-12) 500 mcg tablet (Vitamin B-12) 500 mcg PO DAILY 08/30/23 [History Last Taken 09/16/23] ibuprofen 600 mg tablet (IBU) 600 mg PO Q8H PRN PRN pain 08/30/23 [History Last Taken Unknown] lisinopril 20 mg-hydrochlorothiazide 25 mg tablet 1 tab PO DAILY 09/13/23 [History Last Taken 09/16/23] Allergy/AdvReac Type Severity Reaction Status Date / Time cefaclor [From Ceclor] Allergy Hives Verified 09/17/23 06:33 ciprofloxacin [From Cipro] Allergy Itching Verified 09/17/23 06:33 erythromycin base Allergy Upset Verified 09/17/23 06:33 [Erythromycin Base] Stomach moxifloxacin HCl Allergy Hives Verified 09/17/23 06:33 [From Avelox] sulfamethoxazole Allergy Unknown Verified 09/17/23 06:33 [From Bactrim] trimethoprim [From Bactrim] Allergy Unknown Verified 09/17/23 06:33 Family History Mother CVA (cerebral vascular accident) Thyroid disorder Ulcer Arthritis Father Diabetes Heart disease Myocardial infarction Arthritis Hypertension High cholesterol Skin cancer Son , age 17 Asthma Large B-cell lymphoma Other Anxiety Melanoma Respiratory disease Surgical History History of ankle surgery History of colonoscopy History of cystoscopy History of cystoscopy History of esophagogastroduodenoscopy (EGD) (~01/20/20) History of lymph node biopsy History of partial hysterectomy History of sinus surgery History of tonsillectomy Hx of cholecystectomy Hx of cystoscopy Hx of cystoscopy Hx of cystoscopy Hx of hysterectomy Hx of nasal septoplasty Hx of prior ablation treatment Hx of tonsillectomy Social History household members: children Smoking Status: Current every day smoker tobacco type: cigarettes Tobacco: How many years used: 25 alcohol intake: never substance use type: does not use what type of physical activity do you participate in: none do you feel safe at home: Yes ROS Constitutional Constitutional: Reports systems reviewed and no addt'l complaints, except as documented Eyes Eyes: Reports systems reviewed and no addt'l complaints, except as documented ENT HEENT: Reports systems reviewed and no addt'l complaints, except as documented Cardiovascular Cardiovascular: Reports systems reviewed and no addt'l complaints, except as documented Vital Signs Vital Signs Vital Signs: Weight Weight: 138.8 kg Body Mass Index (BMI) 50.9 Physical Exam Const alert, oriented x3 and no apparent distress HEENT normocephalic, hearing grossly normal bilaterally, external ears normal, external nose normal and moist oral mucous membranes Chest inspection of chest normal Resp normal respiratory effort Cardio regular rate GI normal to inspection, nondistended, normoactive bowel sounds no CVA tenderness Extremity normal to inspection Skin no rashes or lesions noted Assessment & Plan Assessment/Plan (1) Overactive bladder: PLAN: proceed with Botox 100 units injection via cystoscopy (2) Urgency incontinence:
== END 2023-09-05 13:05 | disposition home or self-care (01) ==
LOC: SDC 08:46 → AC 08:48
PROVIDERS: PCP Nurse Practitioner Family; Referring Provider Nurse Practitioner Family; Visit Provider Urology
PROC: 3E0K8GC Introduction of Other Therapeutic Substance into Genitourinary Tract, Via Natural or Artificial Opening Endoscopic (ICD-10-PCS; CPT 52287; principal; 2023-09-05 11:00)
DX: N32.81 Overactive bladder (principal); J44.9 Chronic obstructive pulmonary disease, unspecified; E11.9 Type 2 diabetes mellitus without complications; N39.41 Urge incontinence; F41.1 Generalized anxiety disorder; I10 Essential (primary) hypertension; G47.33 Obstructive sleep apnea (adult) (pediatric); F32.A Depression, unspecified; F17.210 Nicotine dependence, cigarettes, uncomplicated
CPT/HCPCS: 52287; 00910; 82962; J7120; J0585; J2405; J3490

== ENCOUNTER 2023-09-17 06:26 | Day surgery (SDC) | payer MEDICARE, MEDICAID, SELFPAY ==
--- NOTE | 2023-09-17 | GASB_PTH ---
PATIENT: RAKESH HEARN LOC: EN U#:[id number] AGE/SX: 48/F ROOM: RE09/17/[address]: Dr. Jean Honeycutt MD : 1975 BED: DIS: 09/17/2023 SPEC #: [id number] RECD: 09/17/23 10:50 STATUS: ARIADNA KATHY #: [id number] MITCHELL: 09/17/23 00:[address]: Jean Honeycutt DEPT: SURGICAL PATHOLOGY RECD BY: Andrew Ochoa ENTERED: 09/17/23 10:51 SP TYPE: Gastric Bx OTHR DR: Juan Daniel Marrero, MADELEINE-C Tissues: A - Gastric mucous membrane B - Gastric mucous membrane C - Sigmoid colon biopsy Procedures: Special Stain Group II Surgery Specimen Level IV Alcian Blue/PAS (control) HEADER OPERATION: Colonoscopy, EGD biopsy, polypectomy PRE-OP DIAGNOSIS: Dysphagia, blood in stool TISSUE SUBMITTED: A- Antrum biopsy, B- Gastroesophageal junction biopsy, C- Sigmoid polyp x2 MICROSCOPIC DIAGNOSIS A. Antrum, biopsy: Mild gastritis. See microscopic description and comment. B. Gastroesophageal junction, biopsy: Fragments of gastroesophageal mucosa with focal intestinal metaplasia (goblet cell metaplasia), consistent with Zaman's esophagus. Chronic inflammation. Negative for dysplasia. See comment. C. Sigmoid colon polyp x2, polypectomy: Fragments of hyperplastic polyp. / 09/18/2023 COMMENT A. The results of immunohistochemistry for Helicobacter pylori will be reported separately ([id number]). B. Alcian blue/PAS stain with matched control is used in the evaluation of the specimen. Immunohistochemistry ([id number]) for P53 and Ki-67 will be performed and results will be reported separately. MICROSCOPIC DESCRIPTION Slides are reviewed. A. The specimen shows fragments of gastric mucosa with chronic inflammatory cell infiltrates in the lamina propria consisting of lymphocytes and plasma cells, consistent with mild chronic gastritis. GROSS DESCRIPTION A. Received in fixative is one container labeled with the patient's name and designated Antrum biopsy. The specimen consists of one irregular fragment of light buckner soft tissue that measures 0.5 x 0.5 x 0.2 cm. The specimen is totally submitted in one cassette. B. Received in fixative is one container labeled with the patient's name and designated GE junction biopsy. The specimen consists of two irregular fragments of light buckner soft tissue that in aggregate measure 0.5 x 0.5 x 0.2 cm. The specimen is totally submitted in one cassette. C. Received in fixative is one container labeled with the patient's name and designated Sigmoid polyps. The specimen consists of multiple irregular fragments of light buckner soft tissue that in aggregate measure 1.5 x 0.5 x 0.2 cm. The specimen is totally submitted in one cassette. mr 09/17/23 TC:3 CPT:[id number]
--- NOTE | 2023-09-17 06:42 | HP.PCM_ITS ---
History and Physical Date of Admission: 09/17/23 Intake Vital Signs 05/10/2308:56 08/26/2412:14 Height 5 ft 5 in 5 ft 5 in Weight: 305 lb BMI 50.7 BP 117/74 Blood Pressure Location Rt brachial Position Sitting Respiration 18 Intake Visit Reasons: Abdominal Pain/Change in bowel habits Chief Complaint: change in bowels Commercial Hvac Service Technician Required: No Is patient in pain?: No Allergies cefaclor [From Ceclor] Allergy (Verified 08/27/23 13:15) Hivesciprofloxacin [From Cipro] Allergy (Verified 08/27/23 13:15) Itchingerythromycin base [Erythromycin Base] Allergy (Verified 08/27/23 13:15) Upset Stomachmoxifloxacin HCl [From Avelox] Allergy (Verified 08/27/23 13:15) HivesPenicillins Allergy (Verified 08/27/23 13:15) Upset Stomachsulfamethoxazole [From Bactrim] Allergy (Verified 08/27/23 13:15) Unknowntrimethoprim [From Bactrim] Allergy (Verified 08/27/23 13:15) Unknown Medications Handicap Placard #1 ea 11/28/20 [Rx Confirmed 12/05/22] albuterol sulfate 90 mcg/actuation breath activated powder inhaler 2 inh inhalation Q4H PRN Sob &/Or Wheezing #1 ea 03/21/22 [Rx Confirmed 08/27/23] blood sugar diagnostic (FreeStyle Test strips) #50 ea 08/10/22 [Rx Confirmed 12/05/22] blood-glucose meter (FreeStyle System Kit) #1 ea 08/10/22 [Rx Confirmed 12/05/22] lancets 28 gauge (FreeStyle Lancets) #50 ea 08/10/22 [Rx Confirmed 12/05/22] pantoprazole 40 mg tablet,delayed release 40 mg PO BID #180 tabs 10/25/22 [Rx Confirmed 08/27/23] metoprolol succinate 25 mg tablet,extended release 24 hr 25 mg PO BID #180 tabs 11/09/22 [Rx Confirmed 08/27/23] gabapentin 300 mg capsule 300 mg PO TID 08/27/23 [History Confirmed 08/27/23] PFSH Medical History Abdominal pain Abdominal wall abscess Acute thoracic back pain Anxiety Anxiety and depression Arthritis Asthma BiPAP (biphasic positive airway pressure) dependence Bladder disease Bronchitis Cancer of left kidney Cervical radiculopathy Chronic back pain Chronic cough Chronic neck and back pain COPD (chronic obstructive pulmonary disease) COPD (chronic obstructive pulmonary disease) Costochondritis Depression Depression with anxiety Diarrhea Diarrhea Dizziness Fatigue Fatigue Fatty stools Gastric reflux Gastroenteritis Generalized anxiety disorder GERD (gastroesophageal reflux disease) H/O emotional problems Headache History of echocardiogram History of edema History of hiatal hernia History of mononucleosis History of renal disease History of stress test History of ulceration HTN (hypertension) HTN (hypertension) Incontinence Intertriginous dermatitis associated with moisture Intestinal ulcer Left ankle pain Lesion of bladder Limb weakness Loose, teeth Lung disease Mild chronic gastritis Nausea and vomiting MARGARITA (obstructive sleep apnea) MARGARITA (obstructive sleep apnea) MARGARITA (obstructive sleep apnea) Overactive bladder Overactive bladder Palpitations Palpitations Pulmonary hypertension Restless leg syndrome Shortness of breath Shoulder pain Sleep apnea Smoker SOB (shortness of breath) Stress incontinence Stress incontinence Type 2 diabetes mellitus UTI (urinary tract infection) Venous insufficiency of both lower extremities Wears glasses Surgical History History of ankle surgery History of colonoscopy History of cystoscopy History of cystoscopy History of esophagogastroduodenoscopy (EGD) (~01/20/20) History of lymph node biopsy History of partial hysterectomy History of sinus surgery History of tonsillectomy Hx of cholecystectomy Hx of cystoscopy Hx of cystoscopy Hx of hysterectomy Hx of nasal septoplasty Hx of prior ablation treatment Hx of tonsillectomy Family History Mother CVA (cerebral vascular accident) Thyroid disorder Ulcer ArthritisFather Diabetes Heart disease Myocardial infarction Arthritis Hypertension High cholesterol Skin cancerSon , age 17 Asthma Large B-cell lymphomaOther Anxiety Melanoma Respiratory disease Social History household members: children Smoking Status: Current every day smoker tobacco type: cigarettes Tobacco: How many years used: 25 alcohol intake: never substance use type: does not use what type of physical activity do you participate in: none do you feel safe at home: Yes HPI HPI HPI: The patient is a 48-year-old female here for blood in the stool and dysphagia. Patient reports she has been having difficulty swallowing.She has never had an EGD or colonoscopy. She reports seeing blood in her stool but it has since stopped. She has never had colonoscopy. ROS General General: Yes fatigue; No weight change, appetite, colon cancer, breast cancer or weakness HEENT HEENT: Yes difficulty swallowing; No eye injury, eye surgery, swollen glands or hoarseness Endo Endocrine: Yes diabetes mellitus; No thyroid disease, thyroid cancer, Hair loss, heat intolerance or cold intolerance Skin Skin: No rash or changing moles Breast Breast: No left breast lump, right breast lump, nipple discharge, breast pain, abnormal mammogram, abnormal US or breast enlargement Musc Musculoskeletal: Yes back problems and arthritis; No rheumatoid arthritis, gout or joint pain Cardio Cardiovascular: Yes high blood pressure; No murmur, pacemaker, heart disease, atrial fibrillation, heart attack, heart stent, palpitations, shortness of breat with exertion or chest pain Psych Psychiatric: Yes depression and anxiety; No hearing voices Resp Respiratory: Yes shortness of breath, Yes sleep apnea, Yes cough, Yes COPD, Yes asthma, Yes emphysema and Yes wheezing Gastro Gastrointestinal: Yes abdominal pain, Yes nausea or vomiting, Yes diarrhea, Yes constipation, Yes blood in stool, Yes acid reflux, No hemorrhoids, Yes ulcers, No gallbladder problem and Yes black,tarry stools Boyd Hematologic: No blood thinners, No blood disorders, No bleeding, No anemia and No blood clots Neuro Neurologic: No system reviewed and no additional complaints, except as documented, No as per HPI, No abnormal gait, No abnormal hearing, No abnormal movements, No abnormal speech, No behavioral changes, No burning sensations, No confusion, No convulsions, No disequilibrium, No dizziness, No localized weakness, No frequent falls, No headache(s), No lack of coordination, No loss of vision, No memory loss, No numbness, No other visual disturbances, No radicular pain, No restless legs, No sensory deficit, No syncope, No tingling, No tremor(s), No weakness and No other Exam Const General: cooperative Orientation: alert and oriented x3 HENMT Head: normal to inspection Neck Neck: normal visual inspection and full ROM Chest Chest palpation & inspection: normal inspection of the chest Resp Effort & Inspection: normal respiratory effort Auscultation: clear to auscultation bilaterally Cardio Rate: regular rate Rhythm: regular rhythm GI Inspection: non-distended Palpation: soft and nontender Skin General: no rashes or lesions noted Neuro General: patient alert and patient oriented x3 Extrem General: full ROM Psych Appearance: grossly normal Mental Status: mental status grossly normal Assessment and Plan Assessment and Plan (1) Dysphagia: Status: Acute Qualifiers: Dysphagia type: esophageal phase Qualified Code(s): R13.19 - Other dysphagia (2) Blood in the stool: Status: Acute Orders: Orders Liver Profile 08/27/23 R10.13 - Epigastric pain Plan The patient is having blood in stool and dysphagia. I did discuss performing an EGD with possible dilation and I discussed the increased risk of perforation or bleeding due to this. I also discussed performing a colonoscopy to evaluate and possible polypectomy. I explained endoscopy in detail to the patient. I explained the risks including but not limited to stroke or heart attack with anesthesia, perforation of the GI tract, bleeding, infection. I explained that any of these could necessitate further emergency surgery. The patient understands and all questions were answered sufficiently. The patient wishes to proceed with procedure. Jean Honeycutt MD Pager: [facility] [address] [place] [address], [address] [place] [address] Office: I have examined the patient and the H&P has been reviewed. There are no clinical changes since date of exam.
[2023-09-17 06:53] VITALS: BP 114/72; PULSE 82; RESP 17; TEMP 36.2; O2SAT 97; BMI 49.8
[2023-09-17] MEDS: Lactated Ringers 1,000 ML 15 ML IV (06:56)
--- NOTE | 2023-09-17 07:30 | IMM_PTH ---
PATIENT: RAKESH HEARN LOC: EN U#:[id number] AGE/SX: 48/F ROOM: RE09/17/[address]: Dr. Jean Honeycutt MD : 1975 BED: DIS: 09/17/2023 SPEC #: [id number] RECD: 09/17/23 13:26 STATUS: ARIADNA RECorina #: [id number] MITCHELL: 09/17/23 07:[address]: Jean Honeycutt DEPT: IMMUNOHISTOCHEMISTRY RECD BY: Chad Alcala ENTERED: 09/17/23 13:27 SP TYPE: IMMUNO OTHR DR: Juan Daniel Marrero, BINDERY MACHINE TENDER-C Tissues: A - Stomach, NOS Procedures: H Pylori (initial) P53 (initial) KI-67 (add) PHYSICIAN & INSTITUTION [place] [id number] SPECIMEN INFORMATION: Tissue Source: A- Antrum biopsy, B- Gastroesophageal junction biopsy Clinical Info: Dysphagia, blood in stool Specimen Number: [id number] A&B CPT code: 64851d2,30618 METHODOLOGY: Deparaffinized sections of prefer/formalin-fixed tissue or PAP/DQ stained slides are incubated with monoclonal/polyclonal antibodies/oligonucleotide probes. Localization is made via biotin free immunoperoxidase method. Appropriate controls are performed and reacted as expected. Results on target cell population are indicated in the following table: RESULTS: ANTIBODY / CLONE RESULT Block A H Pylori (polyclonal) negative Block B P53 (DO-7) negative (null pattern) Ki-67 (30-9) positive, very low These tests were developed and their performance characteristics determined by [facility]. They may not have been cleared or approved by the U.S. Food and Drug Administration. The FDA has determined that such clearance or approval is not necessary. The above immunohistochemical/dualISH markers are ordered and reviewed by the Pathologist. INTERPRETATION: A. Antrum, biopsy: Negative for Helicobacter pylori organisms. B. Gastroesophageal junction, biopsy: Negative for dysplasia. JEREMIE/ 09/19/23
[2023-09-17 08:05] VITALS: BP 114/72; BP 90/66; PULSE 84; RESP 16; TEMP 36.7; O2SAT 97
[2023-09-17 08:10] VITALS: BP 114/72; BP 99/70; PULSE 85; RESP 16; O2SAT 98
--- NOTE | 2023-09-17 08:11 | OP.CCLET_ITS ---
09/17/2023 Juan Daniel Marrero [facility], Registered Nurse Cardiovascular Icu-c Re : Upper GI endoscopy procedure for Odette Burrows Dear Marrero This procedure was performed on Sunday, September 17, 2023. My impressions and recommendations are as follows: Impressions : - Non-severe reflux esophagitis with no bleeding. Biopsied. - Normal stomach. - Normal examined duodenum. - Biopsies were taken with a cold forceps for Helicobacter pylori testing. Recommendations : - Discharge patient to home. - Resume previous diet. - Continue present medications. - Await pathology results. My findings are described in the full procedure note, which is enclosed. If I can be of further assistance, please feel free to contact me at Doctor phone number(s): , Work: . Sincerely, Jean Honeycutt MD 09/17/2023 8:10:50 AM This report has been signed electronically.
--- NOTE | 2023-09-17 08:11 | OP.EGD_ITS ---
Patient Name: Odette Burrows Procedure Date: 09/17/2023 7:22 AM Date of : 1975 Age: 48 Procedure: Upper GI endoscopy Indications: Dysphagia Providers: Jean Honeycutt MD Referring MD: Juan Daniel Marrero [facility], Psychiatric Technician-c Medicines: Propofol per Anesthesia Patient Profile: This is a 48 year old female. Refer to note in patient chart for documentation of history and physical. Complications: No immediate complications. Estimated blood loss: Minimal. Procedure: Pre-Anesthesia Assessment: - Prior to the procedure, a History and Physical was performed, and patient medications and allergies were reviewed. The patient's tolerance of previous anesthesia was also reviewed. The risks and benefits of the procedure and the sedation options and risks were discussed with the patient. All questions were answered, and informed consent was obtained. Prior Anticoagulants: The patient has taken no anticoagulant or antiplatelet agents. After reviewing the risks and benefits, the patient was deemed in satisfactory condition to undergo the procedure. After obtaining informed consent, the endoscope was passed under direct vision. Throughout the procedure, the patient's blood pressure, pulse, and oxygen saturations were monitored continuously. The Endoscope was introduced through the mouth, and advanced to the second part of duodenum. The upper GI endoscopy was accomplished without difficulty. The patient tolerated the procedure fairly well. Scope In: 7:34:39 AM Scope Out: 7:38:57 AM Total Procedure Duration Time 0 hours 4 minutes 18 seconds Findings: Non-severe esophagitis with no bleeding was found in the lower third of the esophagus. Biopsies were taken with a cold forceps for histology. Estimated blood loss was minimal. The stomach was normal. The examined duodenum was normal. Biopsies were taken with a cold forceps in the gastric antrum for Helicobacter pylori testing. Impression: - Non-severe reflux esophagitis with no bleeding. Biopsied. - Normal stomach. - Normal examined duodenum. - Biopsies were taken with a cold forceps for Helicobacter pylori testing. Recommendation: - Discharge patient to home. - Resume previous diet. - Continue present medications. - Await pathology results. Procedure Code(s): --- Professional --- 26209, Esophagogastroduodenoscopy, flexible, transoral; with biopsy, single or multiple Diagnosis Code(s): --- Professional --- K21.00, Gastro-esophageal reflux disease with esophagitis, without bleeding R13.10, Dysphagia, unspecified CPT copyright 2021 [employer] [place] [employer]. All rights reserved. The codes documented in this report are preliminary and upon high school coach review may be revised to meet current compliance requirements. Jean Honeycutt MD 09/17/2023 8:10:50 AM This report has been signed electronically. Number of Addenda: 0 Note Initiated On: 09/17/2023 7:22 AM
--- NOTE | 2023-09-17 08:13 | OP.COLON_ITS ---
Patient Name: Odette Burrows Procedure Date: 09/17/2023 7:39 AM Date of : 1975 Age: 48 Procedure: Colonoscopy Indications: Rectal bleeding Providers: Jean Honeycutt MD Referring MD: Juan Daniel Marrero [facility], Pastor-c Medicines: Propofol per Anesthesia Patient Profile: This is a 48 year old female. Refer to note in patient chart for documentation of history and physical. Last Colonoscopy: none. The patient's first colonoscopy is today. Complications: No immediate complications. Estimated blood loss: Minimal. Procedure: Pre-Anesthesia Assessment: - Prior to the procedure, a History and Physical was performed, and patient medications and allergies were reviewed. The patient's tolerance of previous anesthesia was also reviewed. The risks and benefits of the procedure and the sedation options and risks were discussed with the patient. All questions were answered, and informed consent was obtained. Prior Anticoagulants: The patient has taken no anticoagulant or antiplatelet agents. After reviewing the risks and benefits, the patient was deemed in satisfactory condition to undergo the procedure. After I obtained informed consent, the scope was passed under direct vision. Throughout the procedure, the patient's blood pressure, pulse, and oxygen saturations were monitored continuously. The pediatric colonoscope was introduced through the anus and advanced to the cecum, identified by appendiceal orifice and ileocecal valve. The colonoscopy was performed without difficulty. The patient tolerated the procedure well. The quality of the bowel preparation was good. The ileocecal valve, appendiceal orifice, and rectum were photographed. Scope In: 7:41:01 AM Scope Withdrawal Time 0 hours 9 minutes 4 seconds Scope Out: 7:54:31 AM Total Procedure Duration Time 0 hours 13 minutes 30 seconds Findings: The entire examined colon appeared normal on direct and retroflexion views. Three polyps were found in the sigmoid colon. The polyps were small in size. These polyps were removed with a hot snare. Resection and retrieval were complete. Impression: - The entire examined colon is normal on direct and retroflexion views. - No specimens collected. Recommendation: - Discharge patient to home. - Resume previous diet. - Continue present medications. - Await pathology results. - Repeat colonoscopy in 5 years for surveillance based on pathology results. Procedure Code(s): --- Professional --- 51732, Colonoscopy, flexible; with removal of tumor(s), polyp(s), or other lesion(s) by snare technique Diagnosis Code(s): --- Professional --- K62.5, Hemorrhage of anus and rectum CPT copyright 2021 [employer] [employer]. All rights reserved. The codes documented in this report are preliminary and upon icd 9 coder review may be revised to meet current compliance requirements. Jean Honeycutt MD 09/17/2023 8:12:39 AM This report has been signed electronically. Number of Addenda: 0 Note Initiated On: 09/17/2023 7:39 AM
--- NOTE | 2023-09-17 08:13 | OP.CCLET_ITS ---
09/17/2023 Juan Daniel Marrero [facility], Radio Performer-c Re : Colonoscopy procedure for Odette Burrows Dear Janes This procedure was performed on Sunday, September 17, 2023. My impressions and recommendations are as follows: Impressions : - The entire examined colon is normal on direct and retroflexion views. - No specimens collected. Recommendations : - Discharge patient to home. - Resume previous diet. - Continue present medications. - Await pathology results. - Repeat colonoscopy in 5 years for surveillance based on pathology results. My findings are described in the full procedure note, which is enclosed. If I can be of further assistance, please feel free to contact me at Doctor phone number(s): , Work: . Sincerely, Jean Honeycutt MD 09/17/2023 8:12:39 AM This report has been signed electronically.
[2023-09-17 08:15] VITALS: BP 105/72; BP 114/72; PULSE 81; RESP 16; TEMP 36.3; O2SAT 95
[2023-09-17 08:28] VITALS: BP 114/72
== END 2023-09-17 08:33 | disposition home or self-care (01) ==
LOC: EN 06:27 → AC 06:27
PROVIDERS: PCP Nurse Practitioner Family; Referring Provider Nurse Practitioner Family; Visit Provider Surgery
PROC: 0DJD8ZZ Inspection of Lower Intestinal Tract, Via Natural or Artificial Opening Endoscopic (ICD-10-PCS; CPT 45378; principal; 2023-09-17 07:25)
DX: K22.70 Barrett's esophagus without dysplasia (principal); J44.9 Chronic obstructive pulmonary disease, unspecified; E11.9 Type 2 diabetes mellitus without complications; K62.5 Hemorrhage of anus and rectum; K21.00 Gastro-esophageal reflux disease with esophagitis, without bleeding; F17.210 Nicotine dependence, cigarettes, uncomplicated; I10 Essential (primary) hypertension; K29.70 Gastritis, unspecified, without bleeding; K63.5 Polyp of colon; Z79.899 Other long term (current) drug therapy; Z90.49 Acquired absence of other specified parts of digestive tract
CPT/HCPCS: 45385; 43239; 88305; 88313; 88341; 88342; J7120; J2405

== ENCOUNTER → 2023-09-18 | Outpatient (CLI) | payer MEDICARE, MEDICAID, SELFPAY ==
--- NOTE | 2023-09-18 16:03 | CT_ITS ---
EXAM: CT CHEST, LUNG CANCER SCREENING WITHOUT INTRAVENOUS CONTRAST CLINICAL INDICATION: Lung Nodule, Tobacco Dependency TECHNIQUE: Helically acquired images were obtained of the chest without intravenous contrast using low dose (LDCT) lung cancer screening protocol. This CT exam was performed using one or more of the following dose reduction techniques: automated exposure control, adjustment of the mA and/or kV according to patient size, and/or use of iterative reconstruction technique. COMPARISON: CTA chest dated 05/10/2023, CTA chest dated 12/19/2013 FINDINGS: LUNGS AND PLEURAL SPACES: There is a noncalcified nodule in the right lower lobe that measures 2.1 x 2.0 cm on today''s exam. 2013 this nodule measured 0.7 x 0.6 cm. On the study dated 05/10/2023 the nodule measured 2.0 x 2.0 cm. No pleural effusion or thickening. No pneumothorax. HEART: Unremarkable. Heart size is normal. No pericardial effusion. No significant coronary artery calcifications. MEDIASTINUM: Unremarkable. No mediastinal or hilar adenopathy. Esophagus is unremarkable. No hiatal hernia. THYROID: Unremarkable. No thyroid lesions. BONES/JOINTS: Unremarkable. No suspicious lytic or blastic abnormality. VASCULATURE: Unremarkable. Thoracic aorta is non-dilated. LYMPH NODES: Unremarkable. No enlarged lymph nodes. CT/Low Dose CT Lung Screening IMPRESSION: Well-circumscribed noncalcified nodule in the right lower lobe which is stable from the most recent exam but has grown in size since 2014. Lung-RADS score: 4B - Very Suspicious. Recommend chest CT with or without contrast, PET/CT and/or tissue sampling depending on the probability of malignancy and comorbidities. PET/CT may be used when there is a >=8 mm solid component. For new large nodules that develop on an annual repeat screening CT, a 1 month LDCT may be recommended to address potentially infectious or inflammatory conditions. Electronically Signed: Clif Siddiqui MD at 0:16 EDT ,
== END | disposition home or self-care (01) ==
PROVIDERS: PCP Nurse Practitioner Family; Referring Provider Internal Medicine Critical Care Medicine; Visit Provider Internal Medicine Critical Care Medicine
DX: F17.210 Nicotine dependence, cigarettes, uncomplicated (principal)
CPT/HCPCS: 71271

== ENCOUNTER → 2023-10-22 | Outpatient (CLI) | payer MEDICARE, MEDICAID, SELFPAY ==
--- NOTE | 2023-10-22 09:00 | PET_ITS ---
EXAMINATION: FDG PET/CT ? INDICATIONS: 48-year-old female with a history of pulmonary nodularity. ? COMPARISON EXAMINATION: CT of the chest 09/18/2023 ? INDEX LESION SIZE SUV INTERPRETATION Bilateral axillae 10.3 mm 7.9 Fulfills quantitative criteria for viable neoplasm with single point technique, histopathologic sampling is recommended.? ? Right lower lung field, right lower lobe ? 1.0 max Quantitative criteria for viable neoplasm are not fulfilled ? TECHNIQUE: Following the intravenous administration of 15.6 mCi of F-18 deoxyglucose via the right hand, multiplanar image acquisitions of the head, neck, chest, abdomen and pelvis to the level of the midthigh, obtained at one-hour post radiopharmaceutical administration contemporaneously interpreted with the current CT of the chest, abdomen and pelvis dated 10/22/2023 via coregistration reveal: ? SERUM GLUCOSE LEVEL:? 141 mg/dL? HEIGHT:?? 65 inches WEIGHT:?? 305 pounds ? FINDINGS: ? HEAD/NECK:? There is no evidence of abnormal increased glucose metabolism in the pharyngeal mucosal space, parapharyngeal space, oropharynx, bilateral-lateral and anterior neck, hypopharynx and distribution of the larynx. ? The visualized portion of the cerebral cortical-subcortical structures demonstrate symmetric and preserved glucose metabolism. ? CHEST:? Facilitated FDG concentration is noted in the right lower lateral lung field, right lower lobe. The calculated standard uptake value is 1.0. Quantitative criteria for viable neoplasm are not fulfilled. FDG concentration is noted in the bilateral axillae generating a calculated standard uptake value of 7.9. The largest corresponding soft tissue density demonstrates a maximal axial diameter of 10.3 mm. ? CT of the chest demonstrates the following anatomic characteristics: Atherosclerotic calcification is defined in the thoracic aorta without evidence of dilatation, aneurysm formation. Coronary artery calcification is observed. There are no additional parenchymal densities-nodules defined in the right and left hemithorax with quantitatively discernable increased uptake. ? ABDOMEN/PELVIS:? Normal physiologic distribution of the radiopharmaceutical is identified in the hepatic (2.6) and splenic parenchyma, both renal units, urinary bladder, and visualized intestinal tract. Diffuse intestinal tract is identified in all four quadrants of the abdominal-pelvic mesentery. ? CT of the abdomen and pelvis is remarkable for the following: A Manish''s lobe is defined. Calcification is noted in the pancreatic body and tail. Atherosclerotic calcification is defined in the abdominal aorta without evidence of dilatation, aneurysm formation. Pelvic arterial calcification is observed. The uterus appears surgically absent. The visualized vaginal cuff appears scintigraphically unremarkable. Occasional colonic diverticula are demonstrated without evidence of diverticulitis. ? SKELETAL:? There is no evidence of quantitatively significant enhanced glucose metabolism on meticulous inspection of the appendicular and axial skeletal structures. ? Degenerative changes defined in the thoracic and lumbar spine demonstrate no evidence of increased glucose metabolism. There are no sclerotic, mixed sclerotic-lytic, or primarily lytic changes defined in the axial skeletal structures with evidence of increased FDG uptake. ? PET/PET/CT Tumor Base -Thigh Init IMPRESSION: 1. The increased radiopharmaceutical concentration defined in the bilateral axillae may warrant histopathologic investigation secondary to the quantitative degree of uptake. If a conservative approach is undertaken, repeat FDG-PET CT imaging in 9-12 weeks is recommended to ensure evolution, stability. 2. Facilitated FDG concentration noted in the right lower lung field, right lower lobe does not fulfill quantitative criteria for malignant transformation. (Cartagena et al, Journal of Nuclear Medicine, 32:1, 1991). 3. Anatomic stability may be ensured with repeat FDG-PET CT of the thorax in 3-6 months if clinically indicated. (Angela, Seminars in Thoracic and Cardiovascular surgery, 14:292, 2002). Electronic Signature Yuri Gill D.O. Accurate Quantification of SUVs for this report are calculated using the exclusive [employer]. ([place]. Patent No. [id number] [id number] [phone] patent [id number]). Standardization and correction of the FDG SUV metric via [employer] technology allow for vendor non-specific objective quantitative examination comparison and optimization of the sensitivity and specificity of the FDG PET-CT examination. . [email or web address] Number Electronically Signed: Yuri Gill DO at 23:15 EDT ,
== END | disposition home or self-care (01) ==
PROVIDERS: PCP Nurse Practitioner Family; Referring Provider Nurse Practitioner Acute Care; Visit Provider Nurse Practitioner Acute Care
DX: R91.8 Other nonspecific abnormal finding of lung field (principal); E66.01 Morbid (severe) obesity due to excess calories; R91.1 Solitary pulmonary nodule; G47.33 Obstructive sleep apnea (adult) (pediatric); F17.210 Nicotine dependence, cigarettes, uncomplicated
CPT/HCPCS: 78815; A9552

== ENCOUNTER → 2024-01-30 | Outpatient (CLI) | payer MEDICARE, MEDICAID, SELFPAY ==
[2024-01-30 17:26] LABS: Color, Urine Yellow (Yellow); Glucose, Dipstick 1000 mg/dl (Normal); Ketone-Dipstick Negative (Negative); Leukocyte Esterase-Dipstick Negative /ul (Negative); Nitrite-Dipstick Negative (Negative); Occult Blood-Urine Negative /ul (Negative); Protein-Dipstick Negative (Negative); Urine Bilirubin Dipstick Negative (Negative); Urine Clarity Clear (Clear); Urine Urobilinogen Normal (Normal)
== END | disposition home or self-care (01) ==
LOC: VSLAB 13:20
PROVIDERS: PCP Nurse Practitioner Family; Visit Provider Nurse Practitioner Family
DX: R30.0 Dysuria (principal)
CPT/HCPCS: 81002; 87086; 87088

== ENCOUNTER → 2024-02-07 | Outpatient (CLI) | payer MEDICARE, MEDICAID, SELFPAY ==
--- NOTE | 2024-02-07 13:23 | US_ITS ---
STUDY: SUPERFICIAL ULTRASOUND - RIGHT AXILLA REASON FOR EXAM: Female, 48 years old. KATIE Localized enlarged lymph nodes TECHNIQUE: A superficial ultrasound was performed with real-time and static smith-scale imaging. COMPARISON: None. FINDINGS: Multiple longitudinal and transverse ultrasound images of the right axilla did not demonstrate a discrete solid or cystic mass or lymphadenopathy. Some normal-sized lymph nodes are noted. IMPRESSION: Normal right axilla. Electronically Signed: Yuri Germain MD at 22:23 EDT , STUDY: SUPERFICIAL ULTRASOUND - LEFT AXILLA REASON FOR EXAM: Female, 48 years old. KATIE Localized enlarged lymph nodes TECHNIQUE: A superficial ultrasound was performed with real-time and static smith-scale imaging. COMPARISON: None. FINDINGS: Multiple longitudinal and transverse ultrasound images of the left axilla do not demonstrate a discrete solid or cystic mass or lymphadenopathy. Normal lymph nodes are noted. US/Ext Non Vasc Limited/Soft Tiss IMPRESSION: Normal left axilla. Electronically Signed: Yuri Germain MD at 22:24 EDT ,
== END | disposition home or self-care (01) ==
LOC: US 13:23
PROVIDERS: PCP Nurse Practitioner Family; Referring Provider Nurse Practitioner Family; Visit Provider Nurse Practitioner Family
DX: R59.0 Localized enlarged lymph nodes (principal)
CPT/HCPCS: 76882

== ENCOUNTER → 2024-02-14 | Outpatient (CLI) | payer MEDICARE, MEDICAID, SELFPAY ==
--- NOTE | 2024-02-14 11:50 | RAD_ITS ---
INDICATION: COPD EXAMINATION/TECHNIQUE: X-RAY - XR Chest 2 Views COMPARISON: Prior study dated: 05/08/2023 FINDINGS: LINES/DEVICES: None. LUNGS: No consolidation, edema or effusion. No pneumothorax. MEDIASTINUM AND CARDIOVASCULAR STRUCTURES: Cardiac silhouette not enlarged. Central airways and mediastinal contour are unremarkable. BONES AND SOFT TISSUES: Unremarkable. RAD/Chest PA and Lateral IMPRESSION: No radiographic evidence of acute cardiopulmonary disease. Electronically Signed: Valente Fajardo MD at 14:39 EDT ,
== END | disposition home or self-care (01) ==
LOC: RAD 11:41
PROVIDERS: PCP Nurse Practitioner Family
DX: J44.1 Chronic obstructive pulmonary disease with (acute) exacerbation (principal)
CPT/HCPCS: 71046

== ENCOUNTER → 2024-03-12 | Outpatient (CLI) | payer MEDICARE, MEDICAID, SELFPAY ==
[2024-03-12 16:49] LABS: Absolute Neutrophil Count 11.8 X10^3/uL (2.0-7.7); Basophil# 0.07 X10^3/uL; Basophil% 0.4 % (0-1); Eosinophil# 0.16 X10^3/uL; Eosinophils% 0.9 % (0-5); Hematocrit 43.2 % (37-47); Hemoglobin 13.9 g/dL (12.0-15.0); Lymphocyte % 24.3 % (19-41); Mean Corp Hgb Conc 32.2 g/dL (32-36); Mean Corpuscular Hgb 28.5 pg (27.0-32.0); Mean Corpuscular Volume 88.7 fL (81-99); Mean Platelet Vol. 11.1 fl (6.2-12.0); Monocyte# 0.66 X10^3/uL; Monocyte% 3.9 % (0-10); NRBC Flagged by Analyzer 0 % (0-5); Neutrophil # 11.81 X10^3/uL (2.7-7.7); Neutrophil % 69.9 % (47-70); POSITIVE MORPHOLOGY YES; Platelet Count 303 K/mm3 (150-450); RBC Distribution Width CV 13.3 % (11.6-14.6); RBC Distribution Width SD 43.2 fl (35.1-43.9); Red Blood Count 4.87 M/mm3 (4.2-5.4); White Blood Count 16.9 K/mm3 (4.4-11.0)
[2024-03-12 16:55] LABS: Differential Indicated SCAN CRITERIA MET
[2024-03-12 17:02] LABS: ALB/GLOB Ratio 0.9 RATIO (0.9-2.4); AST(SGOT) 19 U/L (15-37); Alanine Aminotransfer ALT/SGPT 30 U/L (13-56); Albumin, Serum 3.5 g/dL (3.2-5.0); Alkaline Phosphatase 130 U/L (45-117); Anion Gap 8 (5-15); BUN 21 mg/dL (7-18); BUN/Creat Ratio 19.1 RATIO (10-20); Calcium,Total 9.3 mg/dL (8.5-10.1); Chloride 108 mmol/L (98-107); EST Glomerular Filtration Rate 56 mL/min (>60); Est Glom Filt Rate - Afr Amer 67 mL/min (>60); Globulin 3.8 g/dL (2.2-4.2); Glucose 233 mg/dL (74-106); Potassium 3.9 mmol/L (3.5-5.1); Protein, Total 7.3 g/dL (6.4-8.2); Sodium Level 139 mmol/L (136-145)
[2024-03-12 18:00] LABS: Differential Comment SCANNED
== END | disposition home or self-care (01) ==
LOC: VSLAB 13:54
PROVIDERS: PCP Nurse Practitioner Family; Visit Provider Nurse Practitioner Family
DX: D72.829 Elevated white blood cell count, unspecified (principal); N17.9 Acute kidney failure, unspecified
CPT/HCPCS: 36415; 80053; 85025

== ENCOUNTER → 2024-07-20 | Outpatient (CLI) | payer MEDICARE, MEDICAID, SELFPAY ==
--- NOTE | 2024-07-20 09:36 | STEWCON_ITS ---
Reason For Study Reason For Study: Chest Pain Stress Results Protocol: Dobutamine Stress Echo With Definity Maximum Predicted HR: 169 bpm Target HR: 144 bpm % Maximum Predicted HR: 88 % DurationHeart Rate Stage (mm:ss) (bpm) BP Comment Baseline 81 99/62 No Chest Pain; 2 ML Diluted Definity DSE 10 MCG 3:18 95 93/45 No Chest Pain DSE 20 MCG 3:00 131 103/51No Chest Pain; Panic Attack DSE 30 MCG 2:38 148 144/100No Chest Pain; Dry Heaves; Dizzy Recovery 99 93/46 No Chest Pain; Dizziness Resolved Stress Duration: 8:56 mm:ss Maximum Stress HR: 148 bpm METS: 1 Baseline Echocardiogram Findings The estimated ejection fraction is 60 %. Ejection fraction with low-dose and high-dose dobutamine are greater than 75%. Stress Echo Wall motion Data Resting WM Intermediate WM Stress WM Resting Wall Motion Wall Motion Stress No regional wall motion abnormalities No regional wall motion abnormalities noted. noted. EKG Data The baseline ECG displays normal sinus rhythm. No significant ischemic changes. Symptoms with Stress The patient experinced No chest pain. Patient felt like she was having a panic attack. She also had dizziness at peak dobutamine dose. . ECHO/Stress Test Echo W/Contrast Interpretation Summary The estimated ejection fraction is 60 %. Dobutamine echo is negative for dobutamine induced chest pain or EKG or echocar diographic changes of ischemia. Ordering Physician: Janes^Juan Daniel^^^VSC, CRIPPLE WORKER-C Referring Physician: Juan Daniel Marrero Performed By: Shasta Mike RCS
== END | disposition home or self-care (01) ==
LOC: CVS 09:35
PROVIDERS: PCP Nurse Practitioner Family; Referring Provider Nurse Practitioner Family; Visit Provider Nurse Practitioner Family
DX: R07.9 Chest pain, unspecified (principal)
CPT/HCPCS: 93017; 93350; Q9957; A4216; C8928

== ENCOUNTER 2024-07-21 09:48 | Emergency (ER) | payer MEDICARE, MEDICAID, SELFPAY ==
[2024-07-21 09:49] VITALS: BP 130/87; PULSE 84; RESP 20; TEMP 35.9; O2SAT 98; BMI 49.2
--- NOTE | 2024-07-21 10:12 | EDS_ITS ---
HPI HPI - GI History of Present Illness Chief Complaint: Abd Pain Informant: patient Narrative Narrative: For the past week or so, patient has had epigastric and periumbilical abdominal cramping, vomiting, watery nonbloody diarrhea, low-grade fevers. She states it let up for couple days but then for the past 4 days has been intense again. She was initially seen at a hospital in [place] and told that she probably had the stomach flu. No known sick contacts lately, no history of any abdominal surgeries, no recent travel out of the area other than [place], or the country, no recent uncooked meats or fish, no history of C. difficile, no recent antibiotics for anything that she can think of. She states she is having more than 10 bouts of vomiting and diarrhea per day, eating or drinking anything triggers the symptoms and she is feeling poorly. [facility] Medical History Diabetes Fatty liver Back pain Dietary restriction Complete edentulism, class III Acute thoracic back pain Restless leg syndrome Palpitations Palpitations HTN (hypertension) Depression with anxiety Type 2 diabetes mellitus Dizziness Headache Generalized anxiety disorder Overactive bladder Stress incontinence BiPAP (biphasic positive airway pressure) dependence Cervical radiculopathy Abdominal pain Nausea and vomiting Gastroenteritis Lesion of bladder Fatigue MARGARITA (obstructive sleep apnea) COPD (chronic obstructive pulmonary disease) Bronchitis Costochondritis HTN (hypertension) MARGARITA (obstructive sleep apnea) UTI (urinary tract infection) Stress incontinence Wears glasses Depression Anxiety Arthritis Bladder disease History of renal disease History of hiatal hernia History of ulceration Gastric reflux History of edema History of stress test History of echocardiogram MARGARITA (obstructive sleep apnea) Pulmonary hypertension Intertriginous dermatitis associated with moisture Abdominal wall abscess Chronic back pain Left ankle pain Overactive bladder Chronic cough Smoker Venous insufficiency of both lower extremities Shortness of breath Fatty stools Diarrhea Fatigue Cancer of left kidney History of mononucleosis Asthma COPD (chronic obstructive pulmonary disease) Intestinal ulcer Anxiety and depression GERD (gastroesophageal reflux disease) H/O emotional problems Home Medications ?Medication ?Instructions ?Recorded ?Last Taken ?Type Handicap Placard #1 ea 11/28/20 Unknown Rx albuterol sulfate 90 mcg/actuation 2 inh inhalation Q4 H PRN Sob &/Or 03/21/22 09/16/23 Rx breath activated powder inhaler Wheezing #1 ea blood sugar diagnostic (FreeStyle #50 ea 08/10/22 Unkn own Rx Test strips) blood-glucose meter (FreeStyle #1 ea 08/10/22 Unknown Rx System Kit) lancets 28 gauge (FreeStyle #50 ea 08/10/22 Unknown Rx Lancets) metoprolol succinate 25 mg 25 mg PO BID #180 tabs 10/1309/17/23 Rx tablet,extended release 24 hr gabapentin 300 mg capsule 300 mg PO TID 08/27/2309/15 History ibuprofen 600 mg tablet (IBU) 600 mg PO Q8H PRN PRN pa in 08/30/23 Unknown History lisinopril 20 1 tab PO DAILY 09/13/2311/03 History mg-hydrochlorothiazide 25 mg tablet omeprazole 40 mg capsule,delayed 40 mg PO BID 10/04/23 Unknown History release dapagliflozin propanediol 10 mg 10 mg PO DAILY 4 Unknown History tablet (Farxiga) dicyclomine 20 mg tablet 20 mg PO Q6H PRN PRN abdomin al 07/21/24 Unknown Rx discomfort #20 tabs metformin 1,000 mg tablet 1,000 mg PO BID 07/21/24 Unk nown History ondansetron 8 mg disintegrating 8 mg PO Q8H PRN nausea and 07/21/24 Unknown Rx tablet vomiting #20 tabs rosuvastatin 10 mg tablet 10 mg PO DAILY 07/21/24 Unkn own History Allergy/AdvReac Type Severity Reaction Status Date / Time cefaclor (From Ceclor) Allergy Hives Verified 07/21/24 09:51 ciprofloxacin (From Cipro) Allergy Itching Verified 07/21/24 09:51 erythromycin base Allergy Upset Verified 07/21/24 09:51 (Erythromycin Base) Stomach moxifloxacin HCl (From Allergy Hives Verified 07/21/24 09:51 Avelox) sulfamethoxazole (From Allergy Unknown Verified 07/21/24 09:51 Bactrim) trimethoprim (From Bactrim) Allergy Unknown Verified 07/21/24 09:51 Family History Mother CVA (cerebral vascular accident) Thyroid disorder Ulcer Arthritis Father Diabetes Heart disease Myocardial infarction Arthritis Hypertension High cholesterol Skin cancer Son , age 17 Asthma Large B-cell lymphoma Other Anxiety Melanoma Respiratory disease Surgical History Hx of cystoscopy History of colonoscopy History of cystoscopy Hx of cystoscopy History of cystoscopy Hx of hysterectomy Hx of cystoscopy History of esophagogastroduodenoscopy (EGD) (~01/20/20) Hx of nasal septoplasty Hx of prior ablation treatment Hx of tonsillectomy Hx of cholecystectomy History of lymph node biopsy History of tonsillectomy History of partial hysterectomy History of ankle surgery History of sinus surgery Social History household members: children Smoking Status: Current every day smoker tobacco type: cigarettes Tobacco: How many years used: 25 alcohol intake: never substance use type: does not use what type of physical activity do you participate in: none do you feel safe at home: Yes ROS ROS ED Constitutional Constitutional ED: Reports fever(s), malaise and subjective; Denies chills Eyes Eyes: Denies change in vision or diplopia ENT ENT ED: Denies rhinorrhea or sore throat Cardiovascular Cardiovascular: Denies chest pain or palpitations Respiratory/Chest Respiratory/Chest: Denies cough or dyspnea Gastrointestinal Gastrointestinal: Reports abdominal pain, diarrhea, nausea and vomiting; Denies hematemesis, hematochezia or melena Genitourinary Genitourinary ED: Denies dysuria or hematuria Musculoskeletal Musculoskeletal: Denies back pain or neck pain Integumentary Denies abscess or rash Neurologic Neurologic: Denies headache(s), paresthesias or weakness Psychiatric Psychiatric: Denies anxiety or suicidal thoughts EXAM Physical Exam Const Vital Signs: 07/21/24 09:49 07/21/24 12:00 07/21/24 14:00 Temperature 96.7 F L Temperature Source Temporal Pulse Rate 84 75 66 Respiratory Rate 20 H 18 20 H Blood Pressure 130/87 H Blood Pressure Mean 101 Pulse Ox 98 97 93 Oxygen Delivery Method Room Air Room Air 07/21/24 15:09 Temperature Temperature Source Pulse Rate 68 Respiratory Rate 18 Blood Pressure Blood Pressure Mean Pulse Ox 94 Oxygen Delivery Method Positive well nourished, well developed and obese General Appearance ED: well developed and NAD Nutritional Appearance: obese HEENT Reports moist mucous membranes normocephalic and atraumatic Eyes PERRL and EOMs intact bilaterally Neck full ROM and supple Resp normal respiratory effort and clear to auscultation bilaterally Cardio regular rate, regular rhythm and no murmurs Rate: Negative for tachycardic GI non-distended GI Narrative: Tender epigastrium as well as right lower quadrant no guarding or rebound. Auscultation: hyperactive bowel sounds Palpation: soft Back/Spine no CVA tenderness General Back: other FROM Extremity normal to inspection General Extremety ED: Negative for edema, pulses abnormal or tenderness General Extremity: Negative for edema or pulses abnormal Neuro oriented x3, CN's II-XII intact bilaterally and no sensory deficits noted Sensorium / Orientation: awake and alert Motor Exam: strength 5/5 throughout Psych mental status grossly normal and thought process normal Skin no rashes or lesions noted and no wounds MDM MDM MDM Narrative Medical decision making narrative: Differential includes gastroenteritis which is likely infectious there is been a high prevalence without any area recently informed of norovirus, she does not have any specific risk factors for foodborne illness or bacterial etiologies, nor C. difficile, but she has been having the symptoms for a long enough I think is reasonable to work her up for those. In addition, a CT was obtained to rule out biliary, pancreatic issues. Blood work shows very slight AST, ALT, alkaline phosphatase elevations but her total bilirubin is negative arguing against a biliary obstruction, and her lipase is normal. She is a mild leukocytosis without a leftward shift and her electrolytes are good, just a little prerenal but with a normal creatinine. After IV fluids, Zofran, Toradol she was not feeling much better, so we additionally gave her Mylanta advanced in addition to metoclopramide and dicyclomine, she did feel better with these. She was observed for a while, waiting for her to have diarrhea to send for testing. I reviewed the CT images and the report which I agree with, it is negative for any acute. It does suggest liver imaging that may be consistent with chronic liver disease, and with her elevated LFTs this is possible but specifics are not clear at this time and she can follow-up for that. She was given food but still cannot have diarrhea and decided that she did not want to wait anymore and opted to do a kit for collection at home and outpatient testing. Refer to her PCP for results if her symptoms do not resolve, and given prescriptions for Zofran and dicyclomine to use at home as needed for symptoms in the meantime she is comfortable with that plan. Lab Data Attestation: I reviewed the patient's lab results. Labs: Laboratory Results - last 24 hr 07/21/24 10:23 WBC 12.0 H RBC 4.70 Hgb 13.6 Hct 41.0 MCV 87.2 MCH 28.9 MCHC 33.2 RDW Std Deviation 41.7 RDW Coeff of Saeid 13.2 Plt Count 313 MPV 10.4 Immature Gran % (Auto) 0.400 Neut % (Auto) 63.2 Lymph % (Auto) 30.2 [place] % (Auto) 4.5 Eos % (Auto) 1.3 Baso % (Auto) 0.4 Absolute Neuts (auto) 7.6 Absolute Lymphs (auto) 3.63 Nucleated RBC % 0 Sodium 137 Potassium 4.2 Chloride 101 Carbon Dioxide 21.3 Anion Gap 15 BUN 24 H Creatinine 1.18 Estim Creat Clear Calc 78.24 Est GFR (MDRD) Non-Af 56 L BUN/Creatinine Ratio 20.4 H Glucose 163 H Calcium 9.8 Total Bilirubin 0.38 AST 47 H ALT 38 H Alkaline Phosphatase 109 H Total Protein 7.3 Albumin 4.2 Globulin 3.1 Albumin/Globulin Ratio 1.4 Lipase 29 Radiography Diagnostic Testing: Clinical Impression(s) from Imaging Studies Abdomen/Pelvis CT 07/21/24 11:20 IMPRESSION: 1. No acute findings. No findings to suggest acute appendicitis. 2. Redemonstrated extremely slowly enlarging fat containing nodule in the right lung base since earliest exam of 01/23/2022, suggesting a benign/indolent etiology such as a hamartoma. 3. New relative atrophy of the left kidney of uncertain etiology since 09/14/2022. No definite renal artery stenosis evident on nondedicated evaluation. 4. Hepatic morphologic features which can suggest chronic liver disease. Correlate with clinical and laboratory evaluation. 5. Additional description as above. Reading Location: [id number] Discharge Plan Triage Chief Complaint: Abd Pain ED Provider: Damian Rodrigues Dx/Rx/DC Orders Clinical Impression: Gastroenteritis, Mild dehydration Instructions: ED Gastroenteritis, Viral (Adult) Prescriptions: New ondansetron 8 mg tablet,disintegrating 8 mg PO Q8H PRN (Reason: nausea and vomiting) Qty: 20 0RF dicyclomine 20 mg tablet 20 mg PO Q6H PRN PRN (Reason: abdominal discomfort) Qty: 20 0RF No Action (DME) Handicap Placard See Rx Instructions .ROUTE .MEDSUPPLY Qty: 1 0RF Rx Instructions: As directed, length of time 3 years (DME) FreeStyle Test Strip See Rx Instructions .ROUTE .MEDSUPPLY Qty: 50 11RF Rx Instructions: check blood glucose daily (DME) blood-glucose meter [FreeStyle System Kit] Kit See Rx Instructions .ROUTE .MEDSUPPLY Qty: 1 0RF Rx Instructions: check blood glucose daily for type 2 DM (DME) lancets [FreeStyle Lancets] 28 gauge misc See Rx Instructions .ROUTE .MEDSUPPLY Qty: 50 11RF Rx Instructions: Check blood glucose daily for type 2 DM metoprolol succinate 25 mg tablet extended release 24 hr 25 mg PO BID Qty: 180 1RF gabapentin 300 mg capsule 300 mg PO TID omeprazole 40 mg capsule,delayed release(DR/EC) 40 mg PO BID dapagliflozin propanediol [Farxiga] 10 mg tablet 10 mg PO DAILY metformin 1,000 mg tablet 1,000 mg PO BID rosuvastatin 10 mg tablet 10 mg PO DAILY lisinopril-hydrochlorothiazide 20-25 mg tablet 1 tab PO DAILY ibuprofen [IBU] 600 mg tablet 600 mg PO Q8H PRN PRN (Reason: pain) albuterol sulfate 90 mcg/actuation aerosol powdr breath activated 2 inh INHALATION Q4H PRN (Reason: Sob &/Or Wheezing) Qty: 1 3RF Other Ambulatory Orders: ENTERIC PATHOGEN PANEL STOOL (Stat) Timeframe: 3 Days Facility: [facility] - Location: Laboratory Ordered By: Dr. Damian Rodrigues CDIFF (PCR) (Routine) Timeframe: 3 Days Facility: [facility] - Location: Laboratory Ordered By: Dr. Damian Rodrigues Stool Lactoferrin/WBC (Routine) Timeframe: 3 Days Facility: [facility] - Location: Laboratory Ordered By: Dr. Damian Rodrigues Primary Care Provider: Juan Daniel Marrero Referrals: Juan Daniel Marrero, [employer] [Primary Care Provider] - As soon as possible Print Language: Beninese Disposition Disposition: Home, Self Care Discharge Date/Time: 07/21/24 15:27
[2024-07-21] MEDS: Ketorolac 30 MG/ML Syringe IV (10:25)
[2024-07-21] MEDS: 0.9% Normal Saline (1000mL) 1,000 ML 999 ML IV (10:25)
[2024-07-21] MEDS: Ondansetron 4 MG/2 ML Vial IV (10:25)
[2024-07-21 10:34] LABS: Absolute Lymphocyte Count 3.63 X10^3/uL (0.83-4.51); Absolute Neutrophil Count 7.6 X10^3/uL (2.0-7.7); Basophil# 0.05 X10^3/uL; Basophil% 0.4 % (0-1); Eosinophil# 0.16 X10^3/uL; Eosinophils% 1.3 % (0-5); Hemoglobin 13.6 g/dL (12.0-15.0); Lymphocyte # 3.63 X10^3/ul (0.83-4.51); Lymphocyte % 30.2 % (19-41); Mean Corp Hgb Conc 33.2 g/dL (32-36); Mean Corpuscular Hgb 28.9 pg (27.0-32.0); Mean Corpuscular Volume 87.2 fL (81-99); Mean Platelet Vol. 10.4 fl (6.2-12.0); Monocyte# 0.54 X10^3/uL; Monocyte% 4.5 % (0-10); NRBC Flagged by Analyzer 0 % (0-5); Neutrophil % 63.2 % (47-70); Platelet Count 313 K/mm3 (150-450); RBC Distribution Width CV 13.2 % (11.6-14.6); RBC Distribution Width SD 41.7 fl (35.1-43.9)
[2024-07-21 11:04] LABS: ALB/GLOB Ratio 1.4 RATIO (0.9-2.4); AST(SGOT) 47 U/L (<=31); Alanine Aminotransfer ALT/SGPT 38 U/L (<=34); Albumin, Serum 4.2 g/dL (3.5-5.0); Alkaline Phosphatase 109 U/L (35-104); Anion Gap 15 (5-15); BUN 24 mg/dL (4-19); BUN/Creat Ratio 20.4 RATIO (10-20); Calcium,Total 9.8 mg/dL (7.6-11.0); Carbon Dioxide 21.3 mmol/L (21.0-32.0); Chloride 101 mmol/L (98-108); Creatinine, Serum 1.18 mg/dL (0.70-1.20); EST Glomerular Filtration Rate 56 (>60); Estimated Creatinine Clearance 78.24 ml/min (50-250); Globulin 3.1 g/dL (2.2-4.2); Glucose 163 mg/dL (70-99); Lipase 29 U/L (13-75); Potassium 4.2 mmol/L (3.3-5.1); Protein, Total 7.3 g/dL (5.9-8.4); Sodium Level 137 mmol/L (133-145); Total Bilirubin 0.38 mg/dL (0.00-1.30)
--- NOTE | 2024-07-21 11:20 | CT_ITS ---
PROCEDURE: ABDOMEN/PELVIS W IV CONT ONLY (procedure code CTABDPELIV), 07/21/2024 REASON FOR EXAM: EPIGAST, RLQ PAIN, N/V/D TECHNIQUE: CT abdomen and pelvis was performed with IV contrast. Multiplanar reformats were generated. IV CONTRAST: 90 mL Isovue-300 COMPARISON: 09/14/2022 FINDINGS: Lung bases: Redemonstrated 2.1 cm fat containing subpleural right lower lobe nodule, slightly enlarged from 1.8 cm on 01/23/2022. Liver: Similar hepatomegaly with mildly lobulated contours. Previous steatosis has improved. Spleen: Unremarkable. Gallbladder: Cholecystectomy. Pancreas: Unremarkable. Adrenals: Unremarkable. Kidneys: New relative atrophy of the left kidney. Bowel: Gastric underdistention limits evaluation of wall thickness however the appearance is similar to prior. Diverticulosis. Normal caliber appendix without adjacent inflammation. Lymph nodes: Borderline distal bilateral external iliac nodes, 10 mm short axis, similar to prior, suggesting a benign/reactive etiology. Vasculature: Mild atherosclerosis. Peritoneum: Unremarkable. Bladder: Similar small calcification along the anterior wall. Reproductive Organs: Hysterectomy. Body Wall: Tiny fat containing umbilical hernia.. Bones: Mild spondylosis.. CT/Abdomen/Pelvis W IV Cont ONLY IMPRESSION: 1. No acute findings. No findings to suggest acute appendicitis. 2. Redemonstrated extremely slowly enlarging fat containing nodule in the right lung base since earliest exam of 01/23/2022, suggesting a benign/indolent etiology such as a hamartoma. 3. New relative atrophy of the left kidney of uncertain etiology since 09/15/19 23. No definite renal artery stenosis evident on nondedicated evaluation. 4. Hepatic morphologic features which can suggest chronic liver disease. Corre late with clinical and laboratory evaluation. 5. Additional description as above. Reading Location: [id number]
[2024-07-21 12:00] VITALS: PULSE 75; RESP 18; O2SAT 97
--- NOTE | 2024-07-21 13:07 | CM.ED ---
Social work Reason for referral: support/resources Referral source: case find This SW knows of patient from uatsdin and community settings. This SW identified need to support patient due to ED presentation and SW entered patient's room. Patient accepted SW visit and stated not realizing this SW worked at [facility]. Patient stated being in pain and being nauseous, as well as patient struggling with multiple personal relationships. Some of this was already known to this SW based on what patient has shared in [employer] settings. Patient stated almost being to the point where patient could no longer stay in the home in which patient is currently living. Patient stated ability to stay with a friend for a short time, but patient stated possibly needing to live out of patient's car soon. Patient stated already checking with [employer] for housing options and patient reports being told [employer] is unable to accept new applications at this time. Much active listening and supportive presence provided. Patient accepted resources of: [employer] card, food pantries, [employer] brochure with homeless navigator number highlighted, list of homeless shelters/Homeward Bound program, anxiety coping skills list, and local counseling resources. No other current needs identified; patient stated ability to call patient's daughter, Raegan, when needing a ride home. Mi Wall, HEALTH PROMOTION SPECIALIST, [employer]
[2024-07-21] MEDS: Metoclopramide 10 MG/2 ML Vial 5 MG IV (13:48)
[2024-07-21] MEDS: Dicyclomine 10 MG Capsule 20 MG PO (13:50)
[2024-07-21] MEDS: Mag Hydrox/Al Hydrox/Simeth 30 ML UDC PO (13:50)
[2024-07-21 14:00] VITALS: PULSE 66; RESP 20; O2SAT 93
[2024-07-21 15:09] VITALS: PULSE 68; RESP 18; O2SAT 94
== END 2024-07-21 15:27 | disposition home or self-care (01) ==
PROVIDERS: Emergency Provider Emergency Medicine; PCP Nurse Practitioner Family; Visit Provider Emergency Medicine
DX: K52.9 Noninfective gastroenteritis and colitis, unspecified (principal); J44.9 Chronic obstructive pulmonary disease, unspecified; E11.9 Type 2 diabetes mellitus without complications; E86.0 Dehydration; M54.9 Dorsalgia, unspecified; G89.29 Other chronic pain; I10 Essential (primary) hypertension; F17.210 Nicotine dependence, cigarettes, uncomplicated; Z79.899 Other long term (current) drug therapy
CPT/HCPCS: 36415; 74177; 80053; 83690; 85025; 96361; 96374; 96375; 99283; Q9967; A4216; J2405

== ENCOUNTER → 2024-07-23 | Outpatient (CLI) | payer MEDICARE, MEDICAID, SELFPAY | END | disposition home or self-care (01) | LOC: LABSPEC 13:35 | PROVIDERS: PCP Nurse Practitioner Family; Referring Provider Emergency Medicine; Visit Provider Emergency Medicine | DX: K52.9 Noninfective gastroenteritis and colitis, unspecified (principal) | CPT/HCPCS: 83630; 87493 ==

== ENCOUNTER 2024-08-01 17:35 | Emergency (ER) | payer MEDICARE, MEDICAID, SELFPAY ==
[2024-08-01 17:35] VITALS: BP 144/91; PULSE 99; RESP 14; TEMP 36.6; O2SAT 97; BMI 51.2
--- NOTE | 2024-08-01 17:47 | ED.VIS.GI ---
HPI HPI - GI History of Present Illness Chief Complaint: Abd Pain Detail of Chief Complaint: Abdominal pain Informant: patient Narrative Narrative: Patient presents to the emergency department with complaint of abdominal pain that she has had for about 2 weeks. Patient states that she was seen in the emergency department about a week and a half ago with similar complaints and had a workup in the ED found. Patient states that she is no better. She complains of nausea. She complains of pain more in the upper right abdomen but at times some cramping in the lower abdomen. She continues to have loose stools about 2 to 3/day. She denies recent travel or recent antibiotic usage. She has had prior cholecystectomy and prior partial hysterectomy. She denies urinary symptoms. She has had some chills. [facility] Medical History Diabetes Fatty liver Back pain Dietary restriction Complete edentulism, class III Acute thoracic back pain Restless leg syndrome Palpitations Palpitations HTN (hypertension) Depression with anxiety Type 2 diabetes mellitus Dizziness Headache Generalized anxiety disorder Overactive bladder Stress incontinence BiPAP (biphasic positive airway pressure) dependence Cervical radiculopathy Abdominal pain Nausea and vomiting Gastroenteritis Lesion of bladder Fatigue MARGARITA (obstructive sleep apnea) COPD (chronic obstructive pulmonary disease) Bronchitis Costochondritis HTN (hypertension) MARGARITA (obstructive sleep apnea) UTI (urinary tract infection) Stress incontinence Wears glasses Depression Anxiety Arthritis Bladder disease History of renal disease History of hiatal hernia History of ulceration Gastric reflux History of edema History of stress test History of echocardiogram MARGARITA (obstructive sleep apnea) Pulmonary hypertension Intertriginous dermatitis associated with moisture Abdominal wall abscess Chronic back pain Left ankle pain Overactive bladder Chronic cough Smoker Venous insufficiency of both lower extremities Shortness of breath Fatty stools Diarrhea Fatigue Cancer of left kidney History of mononucleosis Asthma COPD (chronic obstructive pulmonary disease) Intestinal ulcer Anxiety and depression GERD (gastroesophageal reflux disease) H/O emotional problems Home Medications ?Medication ?Instructions ?Recorded ?Last Taken ?Type Handicap Placard #1 ea 11/28/20 Unknown Rx albuterol sulfate 90 mcg/actuation 2 inh inhalation Q4H PRN Sob &/Or 03/21/22 09/16/23 Rx breath activated powder inhaler Wheezing #1 ea blood sugar diagnostic (FreeStyle #50 ea 08/10/22 Unknown Rx Test strips) blood-glucose meter (FreeStyle #1 ea 08/10/22 Unknown Rx System Kit) lancets 28 gauge (FreeStyle #50 ea 08/10/22 Unknown Rx Lancets) metoprolol succinate 25 mg 25 mg PO BID #180 tabs 11/09/22 09/17/23 Rx tablet,extended release 24 hr gabapentin 300 mg capsule 300 mg PO TID 08/27/23 09/16/23 History ibuprofen 600 mg tablet (IBU) 600 mg PO Q8H PRN PRN pain 08/30/23 Unknown History lisinopril 20 1 tab PO DAILY 09/13/23 09/16/23 History mg-hydrochlorothiazide 25 mg tablet omeprazole 40 mg capsule,delayed 40 mg PO BID 10/04/23 Unknown History release dapagliflozin propanediol 10 mg 10 mg PO DAILY 10/25/23 Unknown History tablet (Farxiga) dicyclomine 20 mg tablet 20 mg PO Q6H PRN PRN abdominal 07/21/24 Unknown Rx discomfort #20 tabs metformin 1,000 mg tablet 1,000 mg PO BID 07/21/24 Unknown History ondansetron 8 mg disintegrating 8 mg PO Q8H PRN nausea and 07/21/24 Unknown Rx tablet vomiting #20 tabs rosuvastatin 10 mg tablet 10 mg PO DAILY 07/21/24 Unknown History hydrocodone-acetaminophen 5-325mg 1 tab PO Q4H PRN PRN Pain 2 days 08/01/24 Unknown Rx 5mg-325mg #10 TABLETS ondansetron 4 mg disintegrating 4 mg PO Q8H PRN PRN Nausea #10 tabs 08/01/24 Unknown Rx tablet Allergy/AdvReac Type Severity Reaction Status Date / Time cefaclor (From Ceclor) Allergy Hives Verified 08/01/24 17:36 ciprofloxacin (From Cipro) Allergy Itching Verified 08/01/24 17:36 erythromycin base Allergy Upset Verified 08/01/24 17:36 (Erythromycin Base) Stomach moxifloxacin HCl (From Allergy Hives Verified 08/01/24 17:36 Avelox) sulfamethoxazole (From Allergy Unknown Verified 08/01/24 17:36 Bactrim) trimethoprim (From Bactrim) Allergy Unknown Verified 08/01/24 17:36 Family History Mother CVA (cerebral vascular accident) Thyroid disorder Ulcer Arthritis Father Diabetes Heart disease Myocardial infarction Arthritis Hypertension High cholesterol Skin cancer Son , age 17 Asthma Large B-cell lymphoma Other Anxiety Melanoma Respiratory disease Surgical History (Reviewed 10/25/23 @ 10:32 by Montse Chawla [employer] B[employer]ZER OPERATOR, [employer]ER OPERATOR-C) Hx of cystoscopy History of colonoscopy History of cystoscopy Hx of cystoscopy History of cystoscopy Hx of hysterectomy Hx of cystoscopy History of esophagogastroduodenoscopy (EGD) (~01/20/20) Hx of nasal septoplasty Hx of prior ablation treatment Hx of tonsillectomy Hx of cholecystectomy History of lymph node biopsy History of tonsillectomy History of partial hysterectomy History of ankle surgery History of sinus surgery Social History household members: children Smoking Status: Heavy Smoker (>10/day) Tobacco: How many years used: 25 alcohol intake: never substance use type: does not use what type of physical activity do you participate in: none do you feel safe at home: Yes ROS ROS ED Review of Systems ROS Unobtainable: other Constitutional Constitutional ED: Reports lethargy; Denies chills, fever(s), sweats or weight loss Eyes Eyes: Denies blurry vision, change in vision or diplopia ENT ENT ED: Denies rhinorrhea or sore throat Cardiovascular Cardiovascular: Denies chest pain, orthopnea or racing heartbeat Respiratory/Chest Respiratory/Chest: Denies cough, dyspnea, dyspnea on exertion, orthopnea or sputum Gastrointestinal Gastrointestinal: Reports abdominal pain, nausea and other Details: Loose stools ; Denies diarrhea or vomiting Genitourinary Genitourinary ED: Denies dysuria, hematuria or urinary frequency Musculoskeletal Musculoskeletal: Denies arthralgias, back pain, myalgias or neck pain Integumentary Denies abscess, Abrasions or rash Neurologic Neurologic: Denies headache(s) or weakness Psychiatric Psychiatric: Denies anxiety, depression or suicidal thoughts Endocrine Endocrinology: Denies polydipsia, polyphagia or polyuria Hematologic/Lymphatic Hematologic/Lymphatic: Denies easy bleeding, easy bruising or lymphadenopathy Allergic/Immunologic Allergic/Immunologic ED: Denies mouth swelling, tongue swelling or urticaria EXAM Physical Exam Const Vital Signs: 08/01/24 17:35 08/01/24 20:53 08/01/24 21:00 Temperature 98 F 98 F Temperature Source Temporal Pulse Rate 99 78 78 Respiratory Rate 14 18 18 Blood Pressure 144/91 H 111/65 111/65 Blood Pressure Mean 108 80 80 Pulse Ox 97 97 97 Oxygen Delivery Method Room Air Room Air Positive well nourished and well developed General Appearance ED: well developed and NAD HEENT Reports TM's clear and moist mucous membranes normocephalic and atraumatic; Negative for trauma or tenderness Tympanic Membrane ED: Yes TM's clear Eyes PERRL and EOMs intact bilaterally General Eye ED: Negative for pale conjunctiva or scleral icterus Neck no lymphadenopathy, supple and no JVD General: Negative for tenderness Chest Wall inspection of chest normal and palpation of chest normal Chest: Negative for tenderness Resp normal respiratory effort and clear to auscultation bilaterally Effort and Inspection: Negative for respiratory distress or pain with movement Auscultation: Negative for rhonchi, wheezes or diminished lung sounds Cardio regular rate, regular rhythm, S1 normal heart sound, S2 normal heart sound and no murmurs Peripheral Pulses: pulses 2+ throughout GI normal to inspection, nondistended, normoactive bowel sounds, soft to palpation, non-distended and no masses GI Narrative: Tenderness palpation in the right upper quadrant with some guarding. Patient also with some tenderness diffusely in the right lower abdomen as well as suprapubic region and left lower quadrant. There is no rebound, rigidity, or peritoneal signs. Exam difficult due to patient's large body habitus. No masses palpated. Back/Spine no CVA tenderness and no thoracic nor lumbar tenderness Extremity normal to inspection General Extremety ED: Negative for edema General Extremity: Negative for edema Neuro oriented x3, CN's II-XII intact bilaterally, no sensory deficits noted and gait normal Sensorium / Orientation: awake, alert, oriented to person, oriented to place and oriented to time Motor Exam: strength 5/5 throughout and strength abnormal Psych mental status grossly normal Skin no rashes or lesions noted and no wounds MDM MDM MDM Narrative Medical decision making narrative: Patient presents with abdominal pain ongoing for almost 2 weeks with continued nausea and pain with eating. She also complains of lower abdominal cramping. Clinically she looks well. She is nontoxic-appearing. She will have an IV line established and will repeat labs and CT imaging. Patient will be given morphine and Zofran for pain. CBC with differential obtained showed a slightly elevated white count of 12.5 which has been chronic for her. Hemoglobin 13.8 and platelet count of 299. Chemistries unremarkable. Lactate normal at 1.9. LFTs were unremarkable. Lipase normal at 37. Urinalysis normal. CT scan of the abdomen pelvis with IV and p.o. contrast showed no acute process. At this point etiology of her pain unclear. She did receive Protonix in the emergency department as well as initially morphine and Zofran followed by a milligram of Dilaudid. Patient will be given a prescription for few [place] for pain. Also some Zofran. Advised to follow-up with GI if symptoms persist. I did order stool for enteric pathogen's as well as C. difficile however my suspicion is low as she states the stool is just soft currently. She was unable to produce a sample in the department. Lab Data Attestation: I reviewed the patient's lab results. Labs: Laboratory Results - last 24 hr 08/01/24 08/01/24 18:02 20:58 WBC 12.5 H RBC 4.68 Hgb 13.8 Hct 41.0 MCV 87.6 MCH 29.5 MCHC 33.7 RDW Std Deviation 40.7 RDW Coeff of Saeid 12.9 Plt Count 299 MPV 10.7 Immature Gran % (Auto) 0.300 Neut % (Auto) 56.6 Lymph % (Auto) 36.0 [place] % (Auto) 5.1 Eos % (Auto) 1.5 Baso % (Auto) 0.5 Absolute Neuts (auto) 7.1 Absolute Lymphs (auto) 4.52 H Nucleated RBC % 0 Atypical Lymphocytes 2+ Reactive Lymphocytes 1+ Sodium 139 Potassium 3.9 Chloride 100 Carbon Dioxide 24.7 Anion Gap 14 BUN 20 H Creatinine 0.98 Estim Creat Clear Calc 93.30 Est GFR (MDRD) Non-Af 70 BUN/Creatinine Ratio 20.2 H Glucose 128 H Lactic Acid 1.9 Calcium 9.6 Total Bilirubin 0.25 AST 34 H ALT 35 Alkaline Phosphatase 137 H Total Protein 7.4 Albumin 4.3 Globulin 3.1 Albumin/Globulin Ratio 1.4 Lipase 37 Urine Color Straw Urine Clarity Clear Urine pH 6.0 Ur Specific [place] 1.010 Urine Protein 15 H Urine Glucose (UA) Normal Urine Ketones Negative Urine Occult Blood 10 H Urine Nitrite Negative Urine Bilirubin Negative Urine Urobilinogen Normal Ur Leukocyte Esterase Negative Urine RBC 0 SEEN Urine WBC 0-5 SEEN Ur Squamous Epith Cells 0-5 SEEN Urine Bacteria RARE Urine Mucus 0 SEEN Radiography Diagnostic Testing: Clinical Impression(s) from Imaging Studies Abdomen/Pelvis CT 08/01/24 17:50 IMPRESSION: Hepatic steatosis. Cholecystectomy changes. No biliary duct dilatation. No evidence of acute intra-abdominal pathology Constipation. Normal appendix. Diverticulosis Unchanged left renal atrophy compared to the right. No hydronephrosis stable incidental findings including mixed attenuation fat containing right lower lobe pulmonary mass Reading Location: [facility] Discharge Plan Triage Chief Complaint: Abd Pain ED Provider: Ancelmo Ribeiro Dx/Rx/DC Orders Clinical Impression: Abdominal pain Instructions: ED Abdominal Pain Unkn Cause Fem Prescriptions: New hydrocodone-acetaminophen 5-325 mg tablet 1 tab PO Q4H PRN PRN (Reason: Pain) 2 Days Qty: 10 0RF ondansetron [ondansetron] 4 mg tablet,disintegrating 4 mg PO Q8H PRN PRN (Reason: Nausea) Qty: 10 0RF No Action (DME) Handicap Placard See Rx Instructions .ROUTE .MEDSUPPLY Qty: 1 0RF Rx Instructions: As directed, length of time 3 years (DME) FreeStyle Test Strip See Rx Instructions .ROUTE .MEDSUPPLY Qty: 50 11RF Rx Instructions: check blood glucose daily (DME) blood-glucose meter [FreeStyle System Kit] Kit See Rx Instructions .ROUTE .MEDSUPPLY Qty: 1 0RF Rx Instructions: check blood glucose daily for type 2 DM (DME) lancets [FreeStyle Lancets] 28 gauge misc See Rx Instructions .ROUTE .MEDSUPPLY Qty: 50 11RF Rx Instructions: Check blood glucose daily for type 2 DM metoprolol succinate 25 mg tablet extended release 24 hr 25 mg PO BID Qty: 180 1RF gabapentin 300 mg capsule 300 mg PO TID omeprazole 40 mg capsule,delayed release(DR/EC) 40 mg PO BID dapagliflozin propanediol [Farxiga] 10 mg tablet 10 mg PO DAILY metformin 1,000 mg tablet 1,000 mg PO BID rosuvastatin 10 mg tablet 10 mg PO DAILY ondansetron 8 mg tablet,disintegrating 8 mg PO Q8H PRN (Reason: nausea and vomiting) Qty: 20 0RF dicyclomine 20 mg tablet 20 mg PO Q6H PRN PRN (Reason: abdominal discomfort) Qty: 20 0RF lisinopril-hydrochlorothiazide 20-25 mg tablet 1 tab PO DAILY ibuprofen [IBU] 600 mg tablet 600 mg PO Q8H PRN PRN (Reason: pain) albuterol sulfate 90 mcg/actuation aerosol powdr breath activated 2 inh INHALATION Q4H PRN (Reason: Sob &/Or Wheezing) Qty: 1 3RF Primary Care Provider: Juan Daniel Marrero Referrals: Ron Horton DO [Med Staff - Active Staff] - 3-5 Days Juan Daniel Marrero, [employer] OPERATOR-C [Primary Care Provider] - Print Language: Greenlandic Disposition Disposition: Home, Self Care Discharge Date/Time: 08/01/24 21:59
--- NOTE | 2024-08-01 17:50 | CT_ITS ---
PROCEDURE: ABDOMEN/PELVIS WITH CONTRAST 08/01/2024 REASON FOR EXAM: ABDOMINAL PAIN TECHNIQUE: Abdomen CT without and with intravenous contrast. Coronal and Sagittal reconstruction series were provided. PATIENT PREPARATION: Per protocol One or more dose reduction techniques were used (e.g., Automated exposure control, adjustment of the mA and/or kV according to patient size, use of iterative reconstruction technique. RADIATION DOSE SUMMARY: DLP: 1405 mGycm COMPARISON: 07/21/2024 FINDINGS: Mixed attenuation right lower lobe pulmonary mass is unchanged. Hepatic steatosis. Unremarkable adrenal glands pancreas and spleen. Gallbladder has been removed. No free air. No free fluid. Decompressed bile duct. No pancreatitis. Normal appendix Diverticulosis. No diverticulitis. Uterus has been removed. No pelvic masses. Left kidney remains small compared to the right without hydronephrosis No aneurysm. Mild vascular calcification. No adenopathy. No suspicious osseous lesions. CT/Abdomen/Pelvis WITH Contrast IMPRESSION: Hepatic steatosis. Cholecystectomy changes. No biliary duct dilatation. No e vidence of acute intra-abdominal pathology Constipation. Normal appendix. Diverticulosis Unchanged left renal atrophy compared to the right. No hydronephrosis stable i ncidental findings including mixed attenuation fat containing right lower lobe pulmonary mass Reading Location: [id number]
[2024-08-01] MEDS: Ondansetron 4 MG/2 ML Vial IV (18:01)
[2024-08-01] MEDS: 0.9% Normal Saline (1000mL) 1,000 ML 999 ML IV (18:01)
[2024-08-01] MEDS: Morphine 4 MG/ML Syringe IV (18:01)
[2024-08-01 18:20] LABS: Absolute Lymphocyte Count 4.52 X10^3/uL (0.83-4.51); Absolute Neutrophil Count 7.1 X10^3/uL (2.0-7.7); Basophil# 0.06 X10^3/uL; Basophil% 0.5 % (0-1); Eosinophil# 0.19 X10^3/uL; Eosinophils% 1.5 % (0-5); Hemoglobin 13.8 g/dL (12.0-15.0); Lymphocyte # 4.52 X10^3/ul (0.83-4.51); Mean Corp Hgb Conc 33.7 g/dL (32-36); Mean Corpuscular Hgb 29.5 pg (27.0-32.0); Mean Corpuscular Volume 87.6 fL (81-99); Mean Platelet Vol. 10.7 fl (6.2-12.0); Monocyte# 0.64 X10^3/uL; Monocyte% 5.1 % (0-10); NRBC Flagged by Analyzer 0 % (0-5); Neutrophil # 7.09 X10^3/uL (2.7-7.7); Neutrophil % 56.6 % (47-70); POSITIVE MORPHOLOGY YES; Platelet Count 299 K/mm3 (150-450); RBC Distribution Width CV 12.9 % (11.6-14.6); RBC Distribution Width SD 40.7 fl (35.1-43.9); Red Blood Count 4.68 M/mm3 (4.2-5.4); White Blood Count 12.5 K/mm3 (4.4-11.0)
[2024-08-01 18:39] LABS: Lactic Acid 1.9 mmol/L (0.0-2.0)
[2024-08-01 18:50] LABS: Differential Indicated SCAN CRITERIA MET
[2024-08-01 18:56] LABS: ALB/GLOB Ratio 1.4 RATIO (0.9-2.4); AST(SGOT) 34 U/L (<=31); Alanine Aminotransfer ALT/SGPT 35 U/L (<=34); Albumin, Serum 4.3 g/dL (3.5-5.0); Alkaline Phosphatase 137 U/L (35-104); Anion Gap 14 (5-15); BUN 20 mg/dL (4-19); BUN/Creat Ratio 20.2 RATIO (10-20); Calcium,Total 9.6 mg/dL (7.6-11.0); Carbon Dioxide 24.7 mmol/L (21.0-32.0); Chloride 100 mmol/L (98-108); Creatinine, Serum 0.98 mg/dL (0.70-1.20); EST Glomerular Filtration Rate 70 (>60); Globulin 3.1 g/dL (2.2-4.2); Glucose 128 mg/dL (70-99); Lipase 37 U/L (13-75); Potassium 3.9 mmol/L (3.3-5.1); Protein, Total 7.4 g/dL (5.9-8.4); Sodium Level 139 mmol/L (133-145); Total Bilirubin 0.25 mg/dL (0.00-1.30)
[2024-08-01 19:27] LABS: Atypical Lymphocyte 2+ %; Reactive Lymphocyte 1+
[2024-08-01] MEDS: Pantoprazole Sodium 40 MG in 0.9% Normal Saline (100mL MB+) 100 ML 330 MG IV (20:50)
[2024-08-01] MEDS: Metoclopramide 10 MG/2 ML Vial 5 MG IV (20:51)
[2024-08-01] MEDS: HYDROmorphone 1 MG/ML Syringe IV (20:51)
[2024-08-01 20:53] VITALS: BP 111/65; PULSE 78; RESP 18; O2SAT 97
[2024-08-01 21:00] VITALS: BP 111/65; PULSE 78; RESP 18; TEMP 36.6; O2SAT 97
[2024-08-01 21:05] LABS: Mucous, Urine 0 SEEN /hpf (<or=2+)
[2024-08-01 21:10] LABS: Color, Urine Straw (Yellow); Glucose, Dipstick Normal (Normal); Ketone-Dipstick Negative (Negative); Leukocyte Esterase-Dipstick Negative /ul (Negative); Nitrite-Dipstick Negative (Negative); Occult Blood-Urine 10 /ul (Negative); Protein-Dipstick 15 mg/dl (Negative); Urine Bilirubin Dipstick Negative (Negative); Urine Clarity Clear (Clear); Urine Urobilinogen Normal (Normal)
[2024-08-01 21:47] LABS: Bacteria RARE /hpf (None Seen); Red Blood Cells-Urine 0 SEEN /hpf (0-5); Squamous Epithelial Cells - UA 0-5 SEEN /hpf (5-10); White Blood Cells 0-5 SEEN /hpf (0-5)
== END 2024-08-01 21:59 | disposition home or self-care (01) ==
PROVIDERS: Emergency Provider Emergency Medicine; PCP Nurse Practitioner Family; Visit Provider Emergency Medicine
DX: R10.11 Right upper quadrant pain (principal); J44.9 Chronic obstructive pulmonary disease, unspecified; E11.9 Type 2 diabetes mellitus without complications; R68.83 Chills (without fever); R19.7 Diarrhea, unspecified; I10 Essential (primary) hypertension; F17.200 Nicotine dependence, unspecified, uncomplicated; Z79.84 Long term (current) use of oral hypoglycemic drugs; Z79.899 Other long term (current) drug therapy; Z90.49 Acquired absence of other specified parts of digestive tract
CPT/HCPCS: 74177; 80053; 81001; 83605; 83690; 85025; 96361; 96365; 96375; 99283; Q9967; A4216; J2405

== ENCOUNTER → 2024-08-01 | Outpatient (CLI) | payer MEDICARE, MEDICAID, SELFPAY ==
--- NOTE | 2024-08-01 09:02 | US_ITS ---
PROCEDURE: ABD LIMITED W/ ELASTOGRAPHY REASON FOR EXAM: FATTY LIVER COMPARISON: None. TECHNIQUE: Right upper quadrant abdominal ultrasound. shear wave elastography for non- invasive assessment of liver tissue stiffness. FINDINGS: Study limited by patient body habitus and bowel gas Visualized portions of the pancreas appear within limits. The liver measures 23.5 cm in length and is diffusely increased in echogenicity which can be seen with hepatic steatosis or other hepatocellular disease. Liver surface appears smooth. No intrahepatic biliary ductal dilation identified. Flow within the portal vein is hepatopetal as expected. 4.6 x 2.2 x 2.7 cm subcapsular echogenic focus near the gallbladder fossa may represent focal fatty sparing. Liver stiffness measures 11.8 kPa, F2-F3. Status post cholecystectomy. CBD measures 10.5 mm and appears to taper distally to 4.6 mm, appears within limits for post cholecystectomy biliary ectasia, reservoir effect. The right kidney measures 13 by 7.6 x 5 cm with a cortical thickness of 1.4 cm. No hydronephrosis. No right upper quadrant ascites. US/ABD Limited w/ Elastography IMPRESSION: Hepatomegaly with diffuse increased echogenicity of the liver which can be seen with hepatic steatosis or other hepatocellular disease. Liver stiffness 11.8 kPa, F2-F3, compatible with [id number] disease, [place] vir score. Status post cholecystectomy. Reading Location: [id number]
== END | disposition home or self-care (01) ==
LOC: US 08:58
PROVIDERS: PCP Nurse Practitioner Family; Referring Provider Nurse Practitioner Family; Visit Provider Nurse Practitioner Family
DX: K76.0 Fatty (change of) liver, not elsewhere classified (principal)
CPT/HCPCS: 76705; 76981

== ENCOUNTER → 2024-08-05 | Outpatient (CLI) | payer MEDICARE, MEDICAID, SELFPAY ==
[2024-08-05 17:07] LABS: Color, Urine Yellow (Yellow); Glucose, Dipstick Normal (Normal); Ketone-Dipstick Negative (Negative); Leukocyte Esterase-Dipstick Negative /ul (Negative); Nitrite-Dipstick Negative (Negative); Occult Blood-Urine 10 /ul (Negative); Protein-Dipstick 15 mg/dl (Negative); Urine Bilirubin Dipstick Negative (Negative); Urine Clarity Clear (Clear); Urine Urobilinogen Normal (Normal)
== END | disposition home or self-care (01) ==
LOC: LABSPEC 15:07
PROVIDERS: PCP Nurse Practitioner Family; Visit Provider Nurse Practitioner Family
DX: R10.84 Generalized abdominal pain (principal)
CPT/HCPCS: 81002; 87086; 87088

== ENCOUNTER → 2024-08-07 | Outpatient (CLI) | payer MEDICARE, MEDICAID, SELFPAY ==
[2024-08-11 09:08] LABS: Pancreatic Elastase, Fecal > 800 (>200)
[2024-08-12 06:08] LABS: Calprotectin, Stool 42 ug/g (0-120)
== END | disposition home or self-care (01) ==
PROVIDERS: PCP Nurse Practitioner Family
DX: K58.0 Irritable bowel syndrome with diarrhea (principal); R10.9 Unspecified abdominal pain; K22.70 Barrett's esophagus without dysplasia
CPT/HCPCS: 36415; 82653; 83993; 84443; 86003; 86005; 87506

== ENCOUNTER 2024-08-10 14:35 | Emergency (ER) | payer MEDICARE, MEDICAID, SELFPAY ==
[2024-08-10 14:36] VITALS: BP 139/100; PULSE 101; RESP 18; TEMP 36.6; O2SAT 98; BMI 50.3
--- NOTE | 2024-08-10 15:46 | EDS_ITS ---
HPI <GEORGE Nicholas - Last Filed: 08/10/24 20:50> HPI - GI History of Present Illness Chief Complaint: Abd Pain Narrative Narrative: Patient presenting today with epigastric abdominal pain that has been worsening over the past month or so. She reports that this is her third visit in the emergency department for this, she did see GI this morning. They would like to obtain an EGD but unable to get this scheduled until October. She reports that they did tell her to come to the emergency department to be admitted for an endoscopy. She does have a history of GERD and similar symptoms in the past, her last endoscopy was a few years ago. She reports that she has also had frequent bouts of loose stool daily, her PCP did obtain a GI bio fire which came back negative. She has had intermittent nausea and vomiting. She reports that her symptoms are making it difficult for her to eat, whenever she eats her symptoms worsen. She denies alcohol use. She does admit to tobacco use. She denies fevers, chills, melena, hematochezia, urinary symptoms, and previous abdominal surgery. She is currently taking omeprazole for her symptoms. [facility] <GEORGE Nicholas - Last Filed: 08/10/24 20:50> [facility] Medical History Diabetes Fatty liver Back pain Dietary restriction Complete edentulism, class III Acute thoracic back pain Restless leg syndrome Palpitations Palpitations HTN (hypertension) Depression with anxiety Type 2 diabetes mellitus Dizziness Headache Generalized anxiety disorder Overactive bladder Stress incontinence BiPAP (biphasic positive airway pressure) dependence Cervical radiculopathy Abdominal pain Nausea and vomiting Gastroenteritis Lesion of bladder Fatigue MARGARITA (obstructive sleep apnea) COPD (chronic obstructive pulmonary disease) Bronchitis Costochondritis HTN (hypertension) MARGARITA (obstructive sleep apnea) UTI (urinary tract infection) Stress incontinence Wears glasses Depression Anxiety Arthritis Bladder disease History of renal disease History of hiatal hernia History of ulceration Gastric reflux History of edema History of stress test History of echocardiogram MARGARITA (obstructive sleep apnea) Pulmonary hypertension Intertriginous dermatitis associated with moisture Abdominal wall abscess Chronic back pain Left ankle pain Overactive bladder Chronic cough Smoker Venous insufficiency of both lower extremities Shortness of breath Fatty stools Diarrhea Fatigue Cancer of left kidney History of mononucleosis Asthma COPD (chronic obstructive pulmonary disease) Intestinal ulcer Anxiety and depression GERD (gastroesophageal reflux disease) H/O emotional problems Home Medications ?Medication ?Instructions ?Recorded ?Last Taken ?Type Handicap Placard #1 ea 11/28/20 Unknown Rx albuterol sulfate 90 mcg/actuation 2 inh inhalation Q4 H PRN Sob &/Or 03/21/22 09/16/23 Rx breath activated powder inhaler Wheezing #1 ea blood sugar diagnostic (FreeStyle #50 ea 08/10/22 Unkn own Rx Test strips) blood-glucose meter (FreeStyle #1 ea 08/10/22 Unknown Rx System Kit) lancets 28 gauge (FreeStyle #50 ea 08/10/22 Unknown Rx Lancets) metoprolol succinate 25 mg 25 mg PO BID #180 tabs 10/1309/17/23 Rx tablet,extended release 24 hr gabapentin 300 mg capsule 300 mg PO TID 08/27/2309/15 History ibuprofen 600 mg tablet (IBU) 600 mg PO Q8H PRN PRN pa in 08/30/23 Unknown History lisinopril 20 1 tab PO DAILY 09/13/2311/03 History mg-hydrochlorothiazide 25 mg tablet omeprazole 40 mg capsule,delayed 40 mg PO BID 10/04/23 Unknown History release dapagliflozin propanediol 10 mg 10 mg PO DAILY 4 Unknown History tablet (Farxiga) dicyclomine 20 mg tablet 20 mg PO Q6H PRN PRN abdomin al 07/21/24 Unknown Rx discomfort #20 tabs metformin 1,000 mg tablet 1,000 mg PO BID 07/21/24 Unk nown History ondansetron 8 mg disintegrating 8 mg PO Q8H PRN nausea and 07/21/24 Unknown Rx tablet vomiting #20 tabs rosuvastatin 10 mg tablet 10 mg PO DAILY 07/21/24 Unkn own History hydrocodone-acetaminophen 5-325mg 1 tab PO Q4H PRN PRN Pain 2 days 08/01/24 Unknown Rx 5mg-325mg #10 TABLETS ondansetron 4 mg disintegrating 4 mg PO Q8H PRN PRN Na usea #10 tabs 08/01/24 Un known Rx tablet cholestyramine-aspartame 4 gram 4 g PO BID #239.4 gram s 08/07/24 Unknown Rx oral powder (Cholestyramine Light) vonoprazan 10 mg tablet 10 mg PO QDAY #30 tabs 08/07 Unknown Rx hydrocodone-acetaminophen 5-325mg 1 tab PO Q4H PRN PRN Pain 3 days 08/10/24 Unknown Rx 5mg-325mg #10 TABLETS sucralfate 1 gram tablet (Carafate) 1 g PO BID #20 tab s 08/10/24 Unknown Rx Allergy/AdvReac Type Severity Reaction Status Date / Time cefaclor (From Ceclor) Allergy Hives Verified 08/07/24 10:44 ciprofloxacin (From Cipro) Allergy Itching Verified 08/07/24 10:44 erythromycin base Allergy Upset Verified 08/07/24 10:44 (Erythromycin Base) Stomach moxifloxacin HCl (From Allergy Hives Verified 08/07/24 10:44 Avelox) sulfamethoxazole (From Allergy Unknown Verified 08/07/24 10:44 Bactrim) trimethoprim (From Bactrim) Allergy Unknown Verified 08/07/24 10:44 Family History Mother CVA (cerebral vascular accident) Thyroid disorder Ulcer Arthritis Father Diabetes Heart disease Myocardial infarction Arthritis Hypertension High cholesterol Skin cancer Son , age 17 Asthma Large B-cell lymphoma Other Anxiety Melanoma Respiratory disease Surgical History Hx of cystoscopy History of colonoscopy History of cystoscopy Hx of cystoscopy History of cystoscopy Hx of hysterectomy Hx of cystoscopy History of esophagogastroduodenoscopy (EGD) (~01/20/20) Hx of nasal septoplasty Hx of prior ablation treatment Hx of tonsillectomy Hx of cholecystectomy History of lymph node biopsy History of tonsillectomy History of partial hysterectomy History of ankle surgery History of sinus surgery Social History household members: children Smoking Status: Current every day smoker tobacco type: cigarettes Tobacco: How many years used: 25 alcohol intake: never substance use type: does not use what type of physical activity do you participate in: none do you feel safe at home: Yes ROS <GEORGE Nicholas - Last Filed: 08/10/24 20:50> ROS ED Constitutional Constitutional ED: Denies chills or fever(s) Cardiovascular Cardiovascular: Denies chest pain Respiratory/Chest Respiratory/Chest: Denies dyspnea Gastrointestinal Gastrointestinal: Reports abdominal pain, diarrhea, nausea and vomiting; Denies constipation or melena Genitourinary Genitourinary ED: Denies dysuria, hematuria or urinary urgency Musculoskeletal Musculoskeletal: Denies arthralgias or myalgias Integumentary Denies rash Neurologic Neurologic: Denies weakness EXAM <GEORGE Nicholas - Last Filed: 08/10/24 20:50> Physical Exam Const Vital Signs: 08/10/24 14:36 08/10/24 16:35 08/10/24 18:00 Temperature 98 F Temperature Source Temporal Pulse Rate 101 H 87 95 Respiratory Rate 18 16 20 H Blood Pressure 139/100 H 138/87 H 132/78 H Blood Pressure Mean 113 104 96 Pulse Ox 98 99 98 Oxygen Delivery Method Room Air 08/10/24 18:41 Temperature 98.3 F Temperature Source Pulse Rate 95 Respiratory Rate 20 H Blood Pressure 132/78 H Blood Pressure Mean 96 Pulse Ox 98 Oxygen Delivery Method Positive well nourished, well developed and no apparent distress General Appearance ED: well developed HEENT Reports normocephalic and head/scalp atraumatic Mouth ED: Yes moist mucous membranes normal Eyes PERRL and EOMs intact bilaterally Neck full ROM and supple Chest Wall inspection of chest normal Resp normal respiratory effort and clear to auscultation bilaterally Cardio regular rate and regular rhythm GI soft to palpation, non-distended and no masses GI Narrative: Epigastric tenderness palpation, no rigidity or guarding, otherwise abdomen nontender. Back/Spine normal ROM and normal to inspection Extremity normal to inspection and full ROM Neuro oriented x3, CN's II-XII intact bilaterally, moves all extremities, no focal motor deficits and no sensory deficits noted Sensorium / Orientation: awake and alert Psych mental status grossly normal and thought process normal Skin no rashes or lesions noted and no wounds <Dr. Boone Moreau DO - Last Filed: 08/10/24 18:05> Physical Exam Const Vital Signs: 08/10/24 14:36 08/10/24 16:35 08/10/24 18:00 Temperature 98 F Temperature Source Temporal Pulse Rate 101 H 87 95 Respiratory Rate 18 16 20 H Blood Pressure 139/100 H 138/87 H 132/78 H Blood Pressure Mean 113 104 96 Pulse Ox 98 99 98 Oxygen Delivery Method Room Air 08/10/24 18:41 Temperature 98.3 F Temperature Source Pulse Rate 95 Respiratory Rate 20 H Blood Pressure 132/78 H Blood Pressure Mean 96 Pulse Ox 98 Oxygen Delivery Method [facility] <GEORGE Nicholas - Last Filed: 08/10/24 20:50> [facility] Narrative Medical decision making narrative: Patient presenting with epigastric abdominal pain, diarrhea, and intermittent nausea/vomiting she has had for about a month. She does have a history of GERD and has had gastric ulcers in the past. She is taking omeprazole with minimal relief of her symptoms. She reports that she saw GI today and they would like to obtain an endoscopy. She reports that they told her to come to the ER, however when reviewing GIs note from today I do not see any note about coming to the ER for admission. I did see that they ordered outpatient labs for further workup. She is nontoxic-appearing, she has had [address] scans here in the emergency department over the past month. This showed chronic changes including chronic liver disease. I do not feel that further abdominal imaging is indicated. She was given IV fluids and a GI cocktail, Pepcid, and Protonix. She did then require IV morphine due to little improvement of her pain. Labs obtained, she has a slight leukocytosis at 12.3 which is consistent with previous labs, anion gap 17, otherwise CMP largely unremarkable. I did speak wi . Friend, he reports that there is no indication to admit her at this time given her unremarkable workup unless her pain is completely uncontrolled here. He will continue to follow-up as an outpatient with her. He recommended adding on Carafate. On reexamination she reports that some improvement of her pain, although she still somewhat uncomfortable. I did discuss the plan of Carafate as well as Allen for home, she is comfortable with this. At this time I do not feel there is indication for emergent admission for endoscopy. She will continue following up as an outpatient and will be discharged home in stable condition. Lab Data Attestation: I reviewed the patient's lab results. Labs: Laboratory Results - last 24 hr 08/10/24 08/10/24 16:12 Unknown WBC 12.3 H RBC 4.94 Hgb 14.1 Hct 43.7 MCV 88.5 MCH 28.5 MCHC 32.3 RDW Std Deviation 41.8 RDW Coeff of Saeid 12.9 Plt Count 282 MPV 10.6 Immature Gran % (Auto) 0.400 Neut % (Auto) 58.4 Lymph % (Auto) 34.9 Isabela % (Auto) 4.5 Eos % (Auto) 1.3 Baso % (Auto) 0.5 Absolute Neuts (auto) 7.2 Absolute Lymphs (auto) 4.28 Nucleated RBC % 0 Sodium 137 Potassium 4.1 Chloride 102 Carbon Dioxide 17.9 L Anion Gap 17 H BUN 15 Creatinine 1.02 Estim Creat Clear Calc 88.92 Est GFR (MDRD) Non-Af 67 BUN/Creatinine Ratio 15.0 Glucose 169 H Calcium 9.6 Total Bilirubin 0.18 AST 38 H ALT 32 Alkaline Phosphatase 113 H Total Protein 7.1 Albumin 4.1 Globulin 3.0 Albumin/Globulin Ratio 1.3 Lipase 26 Urine Color Yellow Urine Clarity Clear Urine pH 6.0 Ur Specific [place] 1.015 Urine Protein 15 H Urine Glucose (UA) Normal Urine Ketones Negative Urine Occult Blood 10 H Urine Nitrite Negative Urine Bilirubin Negative Urine Urobilinogen Normal Ur Leukocyte Esterase Negative Urine RBC 0-5 SEEN Urine WBC 0-5 SEEN Ur Squamous Epith Cells 0-5 SEEN Urine Bacteria 0 SEEN Urine Mucus 0 SEEN <Dr. Boone Moreau, DO - Last Filed: 08/10/24 18:05> [facility] Lab Data Labs: Laboratory Results - last 24 hr 08/10/24 08/10/24 16:12 Unknown WBC 12.3 H RBC 4.94 Hgb 14.1 Hct 43.7 MCV 88.5 MCH 28.5 MCHC 32.3 RDW Std Deviation 41.8 RDW Coeff of Saeid 12.9 Plt Count 282 MPV 10.6 Immature Gran % (Auto) 0.400 Neut % (Auto) 58.4 Lymph % (Auto) 34.9 Isabela % (Auto) 4.5 Eos % (Auto) 1.3 Baso % (Auto) 0.5 Absolute Neuts (auto) 7.2 Absolute Lymphs (auto) 4.28 Nucleated RBC % 0 Sodium 137 Potassium 4.1 Chloride 102 Carbon Dioxide 17.9 L Anion Gap 17 H BUN 15 Creatinine 1.02 Estim Creat Clear Calc 88.92 Est GFR (MDRD) Non-Af 67 BUN/Creatinine Ratio 15.0 Glucose 169 H Calcium 9.6 Total Bilirubin 0.18 AST 38 H ALT 32 Alkaline Phosphatase 113 H Total Protein 7.1 Albumin 4.1 Globulin 3.0 Albumin/Globulin Ratio 1.3 Lipase 26 Urine Color Yellow Urine Clarity Clear Urine pH 6.0 Ur Specific [place] 1.015 Urine Protein 15 H Urine Glucose (UA) Normal Urine Ketones Negative Urine Occult Blood 10 H Urine Nitrite Negative Urine Bilirubin Negative Urine Urobilinogen Normal Ur Leukocyte Esterase Negative Urine RBC 0-5 SEEN Urine WBC 0-5 SEEN Ur Squamous Epith Cells 0-5 SEEN Urine Bacteria 0 SEEN Urine Mucus 0 SEEN Treatment and Re-Evaluation :: I have personally performed a face to face assessment of the patient and have reviewed the RUSLAN Note. I performed a substantive portion of the visit including all aspects of the following. My dupont findings include: History: Patient presents with epigastric abdominal pain that became worse today. Patient states she has had pain in her epigastric area for several days. Patient states she is scheduled for an endoscopy later next month. Patient describes her pain as sharp and burning. Patient states her pain is over the epigastric area. Patient states it is worse with eating or drinking anything. Patient states nothing makes it better. Patient admits to nausea but denies any vomiting. Patient admits to some diarrhea but denies any melena or hematochezia. Patient admits to some urinary frequency but denies any dysuria or hematuria. Exam: Vital signs are stable. Patient is afebrile. Patient is in no acute distress. Oral mucosa is pink and moist. Neck is supple. Trachea is midline. There is no JVD. Heart was regular rate and rhythm. Lungs are clear and equal bilaterally. Abdomen is soft. Bowel sounds are normal. There is some epigastric tenderness. There is no rebound or guarding noted. Cranial nerves II through XII are intact. There are no focal motor or sensory deficits noted. Medical Decision Making: Differential diagnosis includes peptic ulcer disease, duodenal ulcer, pancreatitis, electrolyte abnormality, and viral illness. CBC will be obtained to assess for leukocytosis and anemia. Comprehensive metabolic profile will be obtained to assess for hepatic function, renal function, and electrolyte abnormality. Lipase will be obtained to assess for pancreatitis. Urinalysis will be obtained to assess for urinary tract infection and hematuria. Patient was given a GI cocktail. Patient was given Protonix, Pepcid, and Zofran. Patient was given IV fluids. CBC was reviewed. There is a mild leukocytosis of 12.3. This is consistent with previous results. The remainder is within normal limits. Comprehensive metabolic profile was reviewed. Glucose was slightly elevated at 169. AST was 38 and alkaline phosphatase was 113. The remainder was essentially within normal limits. Lipase was reviewed and was normal at 26. Urinalysis was reviewed. There is no evidence of urinary tract infection or hematuria. Patient was advised of her findings. Case was discussed with Dr. Horton. He recommended adding Carafate. He will follow-up with patient as an outpatient. Patient understood and was agreeable with the plan. All questions were answered. Discharge Plan Triage Chief Complaint: Abd Pain ED Midlevel Provider: Shila Choe ED Provider: Boone Moreau Dx/Rx/DC Orders Clinical Impression: Epigastric abdominal pain, Nausea & vomiting, Diarrhea Instructions: ED Gastritis (Adult) Prescriptions: New sucralfate [Carafate] 1 gram tablet 1 g PO BID Qty: 20 0RF hydrocodone-acetaminophen 5-325 mg tablet 1 tab PO Q4H PRN PRN (Reason: Pain) 3 Days Qty: 10 0RF No Action (DME) Handicap Placard See Rx Instructions .ROUTE .MEDSUPPLY Qty: 1 0RF Rx Instructions: As directed, length of time 3 years (DME) FreeStyle Test Strip See Rx Instructions .ROUTE .MEDSUPPLY Qty: 50 11RF Rx Instructions: check blood glucose daily (DME) blood-glucose meter [FreeStyle System Kit] Kit See Rx Instructions .ROUTE .MEDSUPPLY Qty: 1 0RF Rx Instructions: check blood glucose daily for type 2 DM (DME) lancets [FreeStyle Lancets] 28 gauge misc See Rx Instructions .ROUTE .MEDSUPPLY Qty: 50 11RF Rx Instructions: Check blood glucose daily for type 2 DM metoprolol succinate 25 mg tablet extended release 24 hr 25 mg PO BID Qty: 180 1RF gabapentin 300 mg capsule 300 mg PO TID omeprazole 40 mg capsule,delayed release(DR/EC) 40 mg PO BID dapagliflozin propanediol [Farxiga] 10 mg tablet 10 mg PO DAILY Cholestyramine Light 4 gram powder 4 g PO BID Qty: 239.4 0RF Rx Instructions: administer w/meal; avoid other meds within 1hr before or 4-6hr after dose vonoprazan 10 mg tablet 10 mg PO QDAY Qty: 30 1RF metformin 1,000 mg tablet 1,000 mg PO BID rosuvastatin 10 mg tablet 10 mg PO DAILY ondansetron 8 mg tablet,disintegrating 8 mg PO Q8H PRN (Reason: nausea and vomiting) Qty: 20 0RF dicyclomine 20 mg tablet 20 mg PO Q6H PRN PRN (Reason: abdominal discomfort) Qty: 20 0RF lisinopril-hydrochlorothiazide 20-25 mg tablet 1 tab PO DAILY ibuprofen [IBU] 600 mg tablet 600 mg PO Q8H PRN PRN (Reason: pain) hydrocodone-acetaminophen 5-325 mg tablet 1 tab PO Q4H PRN PRN (Reason: Pain) 2 Days Qty: 10 0RF ondansetron 4 mg tablet,disintegrating 4 mg PO Q8H PRN PRN (Reason: Nausea) Qty: 10 0RF albuterol sulfate 90 mcg/actuation aerosol powdr breath activated 2 inh INHALATION Q4H PRN (Reason: Sob &/Or Wheezing) Qty: 1 3RF Primary Care Provider: Juan Daniel Marrero Referrals: Juan Daniel Marrero, SALES SUPPORT REPRESENTATIVE-C [Primary Care Provider] - Activity Restrictions/Additional Instructions: Follow-up with GI. Return for any worsening symptoms. Print Language: Greenlandic Disposition Disposition: Home, Self Care Discharge Date/Time: 08/10/24 18:41
[2024-08-10] MEDS: Famotidine 20 MG Tablet PO (15:54)
[2024-08-10] MEDS: Lidocaine 2% Viscous15 ML UDC 15 ML PO (15:54)
[2024-08-10] MEDS: Mag Hydrox/Al Hydrox/Simeth 30 ML UDC PO (15:54)
[2024-08-10] MEDS: Ondansetron 4 MG/2 ML Vial IV (15:54)
[2024-08-10] MEDS: 0.9% Normal Saline (1000mL) 1,000 ML 999 ML IV (15:58)
[2024-08-10 16:17] LABS: Bacteria 0 SEEN /hpf (None Seen); Mucous, Urine 0 SEEN /hpf (<or=2+)
[2024-08-10] MEDS: Pantoprazole Sodium 40 MG in 0.9% Normal Saline (100mL MB+) 100 ML 330 MG IV (16:18)
[2024-08-10 16:22] LABS: Absolute Lymphocyte Count 4.28 X10^3/uL (0.83-4.51); Absolute Neutrophil Count 7.2 X10^3/uL (2.0-7.7); Basophil# 0.06 X10^3/uL; Basophil% 0.5 % (0-1); Eosinophil# 0.16 X10^3/uL; Eosinophils% 1.3 % (0-5); Hematocrit 43.7 % (37-47); Hemoglobin 14.1 g/dL (12.0-15.0); Lymphocyte # 4.28 X10^3/ul (0.83-4.51); Lymphocyte % 34.9 % (19-41); Mean Corp Hgb Conc 32.3 g/dL (32-36); Mean Corpuscular Hgb 28.5 pg (27.0-32.0); Mean Corpuscular Volume 88.5 fL (81-99); Mean Platelet Vol. 10.6 fl (6.2-12.0); Monocyte# 0.55 X10^3/uL; Monocyte% 4.5 % (0-10); NRBC Flagged by Analyzer 0 % (0-5); Neutrophil # 7.18 X10^3/uL (2.7-7.7); Neutrophil % 58.4 % (47-70); Platelet Count 282 K/mm3 (150-450); RBC Distribution Width CV 12.9 % (11.6-14.6); RBC Distribution Width SD 41.8 fl (35.1-43.9); Red Blood Count 4.94 M/mm3 (4.2-5.4); White Blood Count 12.3 K/mm3 (4.4-11.0)
[2024-08-10 16:23] LABS: Color, Urine Yellow (Yellow); Glucose, Dipstick Normal (Normal); Ketone-Dipstick Negative (Negative); Leukocyte Esterase-Dipstick Negative /ul (Negative); Nitrite-Dipstick Negative (Negative); Occult Blood-Urine 10 /ul (Negative); Protein-Dipstick 15 mg/dl (Negative); Specific Gravity, Urine 1.015 (1.002-1.030); Urine Bilirubin Dipstick Negative (Negative); Urine Clarity Clear (Clear); Urine Urobilinogen Normal (Normal)
[2024-08-10 16:35] VITALS: BP 138/87; PULSE 87; RESP 16; O2SAT 99
[2024-08-10 16:44] LABS: Lipase 26 U/L (13-75)
[2024-08-10 16:49] LABS: ALB/GLOB Ratio 1.3 RATIO (0.9-2.4); AST(SGOT) 38 U/L (<=31); Alanine Aminotransfer ALT/SGPT 32 U/L (<=34); Albumin, Serum 4.1 g/dL (3.5-5.0); Alkaline Phosphatase 113 U/L (35-104); Anion Gap 17 (5-15); BUN 15 mg/dL (4-19); Calcium,Total 9.6 mg/dL (7.6-11.0); Carbon Dioxide 17.9 mmol/L (21.0-32.0); Chloride 102 mmol/L (98-108); Creatinine, Serum 1.02 mg/dL (0.70-1.20); EST Glomerular Filtration Rate 67 (>60); Estimated Creatinine Clearance 88.92 ml/min (50-250); Glucose 169 mg/dL (70-99); Potassium 4.1 mmol/L (3.3-5.1); Protein, Total 7.1 g/dL (5.9-8.4); Sodium Level 137 mmol/L (133-145); Total Bilirubin 0.18 mg/dL (0.00-1.30)
[2024-08-10 16:50] LABS: Squamous Epithelial Cells - UA 0-5 SEEN /hpf (5-10)
[2024-08-10 16:52] LABS: Red Blood Cells-Urine 0-5 SEEN /hpf (0-5); White Blood Cells 0-5 SEEN /hpf (0-5)
[2024-08-10] MEDS: Morphine 4 MG/ML Syringe IV (17:05)
[2024-08-10 18:00] VITALS: BP 132/78; PULSE 95; RESP 20; O2SAT 98
[2024-08-10 18:41] VITALS: BP 132/78; PULSE 95; RESP 20; TEMP 36.8; O2SAT 98
== END 2024-08-10 18:41 | disposition home or self-care (01) ==
PROVIDERS: Physician Assistant; Emergency Provider Emergency Medicine; PCP Nurse Practitioner Family; Visit Provider Emergency Medicine
DX: R10.13 Epigastric pain (principal); J44.9 Chronic obstructive pulmonary disease, unspecified; E11.65 Type 2 diabetes mellitus with hyperglycemia; R11.2 Nausea with vomiting, unspecified; R19.7 Diarrhea, unspecified; I10 Essential (primary) hypertension; K76.9 Liver disease, unspecified; K21.9 Gastro-esophageal reflux disease without esophagitis; G47.33 Obstructive sleep apnea (adult) (pediatric); F17.210 Nicotine dependence, cigarettes, uncomplicated; Z79.84 Long term (current) use of oral hypoglycemic drugs; Z79.899 Other long term (current) drug therapy
CPT/HCPCS: 80053; 81001; 83690; 85025; 96365; 96375; 99283; A4216; J2405

== ENCOUNTER 2024-08-18 12:54 | Day surgery (SDC) | payer MEDICARE, MEDICAID, SELFPAY ==
--- NOTE | 2024-08-13 20:57 | PAT.ANESEVAL ---
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 When Was Last Pacemaker Check QUESTION #4 FULL TEXT: You/Your Family Experience fever (hyperthermia) with Anesthesia Last Oral Intake Last Oral intake: Last Oral Intake NPO since Meds taken in AM with sips of water? 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: PONV - dividing machine operator helper Female Yes 08/13/24 14:46 HX of Motion Sickness No 08/13/24 14:46 HX of N/V After Surgery No 08/13/24 14:46 Non-Smoker No 08/13/24 14:46 Duration of Surgery greater No 08/13/24 14:46 than 60 minutes Number of Risk Factors 1 08/13/24 14:46 PONV Score Low Risk 08/13/24 14:46 Height & Weight Height & Weight: Anesthesia: Height & Weight Height 5 ft 4.17 in 08/10/24 14:36 Respiratory Assessment Respiratory Assessment - dividing machine operator helper: Respiratory Tract Infection Hx - dividing machine operator helper Hx Respiratory Tract Infection No 08/13/24 14:46 STOP Sleep Apnea STOP Sleep Apnea - dividing machine operator helper: STOP Sleep Apnea - dividing machine operator helper Hx Hypertension Yes: CONTROLLED WITH MED 08/13/24 14:46 Hx Sleep Apnea Yes 08/13/24 14:46 CPAP No 08/13/24 14:46 BIPAP Yes: NONCOMPLIANT FOR LAST 4 08/13/24 14:46 MONTHS Do you snore loudly (louder than talking or can be heard Do you often feel tired/ fatigued/ sleepy during daytime? Has anyone observed you stop breathing during sleep? STOP Results Positive 08/13/24 14:46 QUESTION #5 FULL TEXT : Do you snore loudly (louder than talking or can be heard through closed doors)? 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 Specify any problems Hx of Preganancy in last 3 No 08/13/24 14:46 Months Nurse Filling Out Transfusion GILBERT 08/13/24 14:46 & Questions: Date: 08/13/24 08/13/24 14:46 Time: 14:48 08/13/24 14:46 Patient unable to answer at this time (ie. 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 machine operator helper: /Reproductive Hx- dividing machine operator helper Hx Now No 08/13/24 14:46 Gestational Age (in weeks): EDC: Hx Hx Para Hx Section SAB No 08/13/24 14:46 [facility] History (Updated 08/13/24 @ 14:55 by Samia Patel) Wears dentures Thyroid disease High cholesterol Shortness of breath on exertion Diabetes Fatty liver Back pain Dietary restriction Complete edentulism, class III Acute thoracic back pain Restless leg syndrome Palpitations Palpitations HTN (hypertension) Depression with anxiety Type 2 diabetes mellitus Dizziness Headache Generalized anxiety disorder Overactive bladder Stress incontinence BiPAP (biphasic positive airway pressure) dependence Cervical radiculopathy Abdominal pain Nausea and vomiting Gastroenteritis Lesion of bladder Fatigue MARGARITA (obstructive sleep apnea) COPD (chronic obstructive pulmonary disease) Bronchitis Costochondritis HTN (hypertension) MARGARITA (obstructive sleep apnea) UTI (urinary tract infection) Stress incontinence Wears glasses Depression Anxiety Arthritis Bladder disease History of renal disease History of hiatal hernia History of ulceration Gastric reflux History of edema History of stress test History of echocardiogram MARGARITA (obstructive sleep apnea) Pulmonary hypertension Intertriginous dermatitis associated with moisture Abdominal wall abscess Chronic back pain Left ankle pain Overactive bladder Chronic cough Smoker Venous insufficiency of both lower extremities Shortness of breath Fatty stools Diarrhea Fatigue Cancer of left kidney History of mononucleosis Asthma COPD (chronic obstructive pulmonary disease) Intestinal ulcer Anxiety and depression GERD (gastroesophageal reflux disease) H/O emotional problems Home Medications ?Medication ?Instructions ?Recorded ?Last Taken ?Type Handicap Placard #1 ea 11/28/20 Unknown Rx albuterol sulfate 90 mcg/actuation 2 inh inhalation Q4H PRN Sob &/Or 03/21/22 09/16/23 Rx breath activated powder inhaler Wheezing #1 ea blood sugar diagnostic (FreeStyle #50 ea 08/10/22 Unknown Rx Test strips) blood-glucose meter (FreeStyle #1 ea 08/10/22 Unknown Rx System Kit) lancets 28 gauge (FreeStyle #50 ea 08/10/22 Unknown Rx Lancets) metoprolol succinate 25 mg 25 mg PO BID #180 tabs 11/09/22 09/17/23 Rx tablet,extended release 24 hr gabapentin 300 mg capsule 300 mg PO TID 08/27/23 09/16/23 History ibuprofen 600 mg tablet (IBU) 600 mg PO Q8H PRN PRN pain 08/30/23 Unknown History lisinopril 20 1 tab PO DAILY 09/13/23 09/16/23 History mg-hydrochlorothiazide 25 mg tablet omeprazole 40 mg capsule,delayed 40 mg PO BID 10/04/23 Unknown History release dicyclomine 20 mg tablet 20 mg PO Q6H PRN PRN abdominal 07/21/24 Unknown Rx discomfort #20 tabs metformin 1,000 mg tablet 1,000 mg PO BID 07/21/24 Unknown History rosuvastatin 10 mg tablet 10 mg PO DAILY 07/21/24 Unknown History vonoprazan 10 mg tablet 10 mg PO QDAY #30 tabs 08/07/24 Unknown Rx sucralfate 1 gram tablet (Carafate) 1 g PO BID #20 tabs 08/10/24 Unknown Rx tirzepatide 2.5 mg/0.5 mL 2.5 mg subcut FR 08/13/24 07/31/24 History subcutaneous pen injector (Mounrebekahro) Allergy/AdvReac Type Severity Reaction Status Date / Time cefaclor (From Ceclor) Allergy Hives Verified 08/13/24 14:39 ciprofloxacin (From Cipro) Allergy Itching Verified 08/13/24 14:39 erythromycin base Allergy Upset Verified 08/13/24 14:39 (Erythromycin Base) Stomach moxifloxacin HCl (From Allergy Hives Verified 08/13/24 14:39 Avelox) sulfamethoxazole (From Allergy Unknown Verified 08/13/24 14:39 Bactrim) trimethoprim (From Bactrim) Allergy Unknown Verified 08/13/24 14:39 Family History Mother CVA (cerebral vascular accident) Thyroid disorder Ulcer Arthritis Father Diabetes Heart disease Myocardial infarction Arthritis Hypertension High cholesterol Skin cancer Son , age 17 Asthma Large B-cell lymphoma Other Anxiety Melanoma Respiratory disease Surgical History Hx of cystoscopy History of colonoscopy History of cystoscopy Hx of cystoscopy History of cystoscopy Hx of hysterectomy Hx of cystoscopy History of esophagogastroduodenoscopy (EGD) (~01/20/20) Hx of nasal septoplasty Hx of prior ablation treatment Hx of tonsillectomy Hx of cholecystectomy History of lymph node biopsy History of tonsillectomy History of partial hysterectomy History of ankle surgery History of sinus surgery Social History household members: children Smoking Status: Current every day smoker tobacco type: cigarettes Tobacco: How many years used: 25 alcohol intake: never substance use type: does not use what type of physical activity do you participate in: none do you feel safe at home: Yes Audit: Pertinent Findings Pertinent Findings EKG Perinent findings: May 10, 2023. Normal sinus rhythm. Stress test pertinent findings: February 24, 2020. Patient was unable to reach 85% of maximal heart rate. Stress test negative for exercise-induced chest pain. No EKG changes of ischemia. Decreased functional capacity. Echo (EF%) pertinent findings: February 03, 2021. Ejection fraction 65%. Right ventricular systolic pressure is 30 mmHg. No aortic stenosis is noted. Recommendation Anesthesia Recommendation Anesthesia recommendation: OPTIMIZED for anesthesia
[2024-08-18] VITALS (8 sets, daily range): BP systolic 95–119; BP diastolic 51–83; PULSE 83–94; RESP 16–18; TEMP 36.4–36.7; O2SAT 93–99; BMI 48.0
[2024-08-18 13:50] LABS: Bedside Glucose 124 mg/dL (74-106)
--- NOTE | 2024-08-18 14:00 | EGD_PTH ---
PATIENT: RAKESH HEARN LOC: EN U#:[id number] AGE/SX: 49/F ROOM: RE08/18/[address]: Dr. Ron Horton DO : 1975 BED: DIS: 08/18/2024 SPEC #: [id number] RECD: 08/19/24 08:49 STATUS: ARIADNA RECorina #: [id number] MITCHELL: 08/18/24 14:[address]: Ron Horton DEPT: SURGICAL PATHOLOGY RECD BY: Chad Alcala ENTERED: 08/19/24 08:50 SP TYPE: EGD BIOPSY OTHR DR: Juan Daniel Marrero, SEED CONE PICKER-C Tissues: A - Gastric mucous membrane B - Ileum, NOS C - COLON BIOPSY Procedures: Immunohistochemical Stains Surgery Specimen Level IV HEADER OPERATION: Colonoscopy with biopsy, EGD with biopsy PRE-OP DIAGNOSIS: Blood in stool, esophagitis, dysphagia, gastritis, epigastric pain, diarrhea TISSUE SUBMITTED: A- Gastric body biopsy, B- Terminal ileum biopsy, C- Random colon biopsy MICROSCOPIC DIAGNOSIS A. Stomach, body, biopsy: * Oxyntic mucosa with features of reactive gastropathy. * IHC negative for H pylori organisms. B. Terminal ileum, biopsy: * Normal villous morphology with no specific pathologic change. C. Colon, random, biopsy: * No specific pathologic change. * The histologic features of microscopic colitis are not demonstrated MICROSCOPIC DESCRIPTION Slides are reviewed. These tests were developed and their performance characteristics determined by [facility]. They may not have been cleared or approved by the U.S. Food and Drug Administration. The FDA has determined that such clearance or approval is not necessary. The above immunohistochemical/dualISH markers are ordered and reviewed by the Pathologist. GROSS DESCRIPTION A. Received in formalin in a container labeled with the patient's name, date of , and gastric body biopsy for H. pylori and path are 2 buckner-pink fragments of mucosal tissue measuring 0.3 x 0.3 x 0.3 cm and 0.5 x 0.2 x 0.2 cm. Submitted in toto in A1. B. Received in formalin in a container labeled with the patient's name, date of , and terminal ileum biopsy are multiple buckner-pink fragments of mucosal tissue measuring 0.7 x 0.6 x 0.2 cm in aggregate. Submitted in toto in B1. C. Received in formalin in a container labeled with the patient's name, date of , and random colon biopsy are multiple buckner-pink fragments of mucosal tissue measuring 1.2 x 0.7 x 0.3 cm in aggregate. Submitted in toto in C1. SMB 08-19-2024 CPT:[id number]
--- NOTE | 2024-08-18 14:17 | PCM.PRE.AN2 ---
ASA Classification* ASA Classification ASA Classification: 3 Assessment & Plan Anesthesia* Anesthesia Assessment Anesthesia Assessment: Discussed sedation and/or anesthesia options, risks, benefits, and alternatives with patient/parents/legal guardian/POA. Questions invited. The patient/parents/legal guardian/POA seems to understand and agrees to proceed with anesthesia plan. Reviewed the physical assessment, medical history, allergy history and patient home medications list prior to surgery/procedure/anesthetic and documented any changes. Performed airway and anesthesia risk assessments. Anesthesia Type Anesthesia Type: MAC History Source History Obtained from:: Patient and Chart Anesthesia Focused Assessment* Temperature: 98.0 F Pulse Rate: 91 Blood Pressure: 119/82 Respiratory Rate: 18 Pulse Ox: 99 Oxygen Delivery Method: Room Air Airway Assessment Mouth opens: >3 cm Mallampati Score: III Teeth Condition: Missing (Patient is edentulous.) Neck Range of motion (ROM): Full ROM Focused Labs Anesthesia Preop lab: CBC WBC 12.3 K/mm3 (4.4-11.0) H 08/10/24 23:59 08/10/24 RBC 4.94 M/mm3 (4.2-5.4) 08/10/24 23:59 08/10/24 Hgb 14.1 g/dL (12.0-15.0) 08/10/24 23:59 08/10/24 Hct 43.7 % (37-47) 08/10/24 23:59 08/10/24 Plt Count 282 K/mm3 (150-450) 08/10/24 23:59 08/10/24 CHEMISTRY Potassium 4.1 mmol/L (3.3-5.1) 08/10/24 23:59 08/10/24 Sodium 137 mmol/L (133-145) 08/10/24 23:59 08/10/24 Magnesium 2.2 mg/dL (1.6-2.6) 08/22/23 10:48 08/22/23 BUN 15 mg/dL (4-19) 08/10/24 23:59 08/10/24 Creatinine 1.02 mg/dL (0.70-1.20) 08/10/24 23:59 08/10/24 Glucose 169 mg/dL (70-99) H 08/10/24 23:59 08/10/24 POC Glucose 124 mg/dL (74-106) H 08/18/24 13:21 08/18/24 TSH 4.400 uIU/mL (0.300-4.200) H 08/07/24 11:38 08/07/24 COAG PT 12.9 SECONDS (11.7-14.9) 10/26/21 10:22 10/26/21 Urine Test Negative Negative 10/20/21 15:00 10/20/21 Pre-Assessment Diagnosis/Proposed Procedure Planned Operative Procedure(s): EGD, COLONOSCOPY Anesthesia History 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 When Was Last Pacemaker Check QUESTION #4 FULL TEXT: You/Your Family Experience fever (hyperthermia) with Anesthesia Last Oral Intake Last Oral intake: Last Oral Intake NPO since 10:00 08/18/24 13:26 Meds taken in AM with sips of Yes 08/18/24 13:26 water? Meds patient instructed to metoprolol 08/18/24 13:26 take am of surgery Any additional information?: Yes NPO since: 10:00 (Patient finished prep at 10 AM.) Meds taken in AM with sips of water?: Yes PONV PONV - electric scoop operator: PONV - electric scoop operator Female Yes 08/13/24 14:46 HX of Motion Sickness No 08/13/24 14:46 HX of N/V After Surgery No 08/13/24 14:46 Non-Smoker No 08/13/24 14:46 Duration of Surgery greater No 08/13/24 14:46 than 60 minutes Number of Risk Factors 1 08/13/24 14:46 PONV Score Low Risk 08/13/24 14:46 Height & Weight Height & Weight: Anesthesia: Height & Weight Height 5 ft 5 in 08/18/24 13:26 Weight: 131 kg 08/18/24 13:26 Body Mass Index (BMI) 48.0 08/18/24 13:26 Respiratory Assessment Respiratory Assessment - electric scoop operator: Respiratory Tract Infection Hx - electric scoop operator Hx Respiratory Tract Infection No 08/13/24 14:46 STOP Sleep Apnea STOP Sleep Apnea - electric scoop operator: STOP Sleep Apnea - electric scoop operator Hx Hypertension Yes: CONTROLLED WITH MED 08/13/24 14:46 Hx Sleep Apnea Yes 08/13/24 14:46 CPAP No 08/13/24 14:46 BIPAP Yes: NONCOMPLIANT FOR LAST 4 08/13/24 14:46 MONTHS Do you snore loudly (louder than talking or can be heard Do you often feel tired/ fatigued/ sleepy during daytime? Has anyone observed you stop breathing during sleep? STOP Results Positive 08/13/24 14:46 QUESTION #5 FULL TEXT : Do you snore loudly (louder than talking or can be heard through closed doors)? 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 Specify any problems Hx of Preganancy in last 3 No 08/13/24 14:46 Months Nurse Filling Out Transfusion MGRIFFITH 08/13/24 14:46 & Questions: Date: 08/13/24 08/13/24 14:46 Time: 14:48 08/13/24 14:46 Patient unable to answer at this time (ie. confused, unrespo /Reproduction History /Reproductive History - electric scoop operator: /Reproductive Hx- electric scoop operator Hx Now No 08/13/24 14:46 Gestational Age (in weeks): EDC: Hx Hx Para Hx Section SAB No 08/13/24 14:46 [facility] Medical History (Updated 08/18/24 @ 00:00 by Background Annalisa) Wears dentures Thyroid disease High cholesterol Shortness of breath on exertion Diabetes Fatty liver Back pain Dietary restriction Complete edentulism, class III Acute thoracic back pain Restless leg syndrome Palpitations Palpitations HTN (hypertension) Depression with anxiety Type 2 diabetes mellitus Dizziness Headache Generalized anxiety disorder Overactive bladder Stress incontinence BiPAP (biphasic positive airway pressure) dependence Cervical radiculopathy Abdominal pain Nausea and vomiting Gastroenteritis Lesion of bladder Fatigue MARGARITA (obstructive sleep apnea) COPD (chronic obstructive pulmonary disease) Bronchitis Costochondritis HTN (hypertension) MARGARITA (obstructive sleep apnea) UTI (urinary tract infection) Stress incontinence Wears glasses Depression Anxiety Arthritis Bladder disease History of renal disease History of hiatal hernia History of ulceration Gastric reflux History of edema History of stress test History of echocardiogram MARGARITA (obstructive sleep apnea) Pulmonary hypertension Intertriginous dermatitis associated with moisture Abdominal wall abscess Chronic back pain Left ankle pain Overactive bladder Chronic cough Smoker Venous insufficiency of both lower extremities Shortness of breath Fatty stools Diarrhea Fatigue Cancer of left kidney History of mononucleosis Asthma COPD (chronic obstructive pulmonary disease) Intestinal ulcer Anxiety and depression GERD (gastroesophageal reflux disease) H/O emotional problems Home Medications ?Medication ?Instructions ?Recorded ?Last Taken ?Type Handicap Placard #1 ea 11/28/20 Unknown Rx albuterol sulfate 90 mcg/actuation 2 inh inhalation Q4H PRN Sob &/Or 03/21/22 09/16/23 Rx breath activated powder inhaler Wheezing #1 ea blood sugar diagnostic (FreeStyle #50 ea 08/10/22 Unknown Rx Test strips) blood-glucose meter (FreeStyle #1 ea 08/10/22 Unknown Rx System Kit) lancets 28 gauge (FreeStyle #50 ea 08/10/22 Unknown Rx Lancets) metoprolol succinate 25 mg 25 mg PO BID #180 tabs 11/09/22 08/18/24 Rx tablet,extended release 24 hr gabapentin 300 mg capsule 300 mg PO TID 08/27/23 09/16/23 History ibuprofen 600 mg tablet (IBU) 600 mg PO Q8H PRN PRN pain 08/30/23 Unknown History lisinopril 20 1 tab PO DAILY 09/13/23 09/16/23 History mg-hydrochlorothiazide 25 mg tablet omeprazole 40 mg capsule,delayed 40 mg PO BID 10/04/23 Unknown History release dicyclomine 20 mg tablet 20 mg PO Q6H PRN PRN abdominal 07/21/24 Unknown Rx discomfort #20 tabs metformin 1,000 mg tablet 1,000 mg PO BID 07/21/24 Unknown History rosuvastatin 10 mg tablet 10 mg PO DAILY 07/21/24 Unknown History vonoprazan 10 mg tablet 10 mg PO QDAY #30 tabs 08/07/24 Unknown Rx sucralfate 1 gram tablet (Carafate) 1 g PO BID #20 tabs 08/10/24 Unknown Rx tirzepatide 2.5 mg/0.5 mL 2.5 mg subcut FR 08/13/24 07/31/24 History subcutaneous pen injector (Mounjaro) Allergy/AdvReac Type Severity Reaction Status Date / Time cefaclor (From Ceclor) Allergy Hives Verified 08/18/24 13:17 ciprofloxacin (From Cipro) Allergy Itching Verified 08/18/24 13:17 erythromycin base Allergy Upset Verified 08/18/24 13:17 (Erythromycin Base) Stomach moxifloxacin HCl (From Allergy Hives Verified 08/18/24 13:17 Avelox) sulfamethoxazole (From Allergy Unknown Verified 08/18/24 13:17 Bactrim) trimethoprim (From Bactrim) Allergy Unknown Verified 08/13/24 14:39 Family History Mother CVA (cerebral vascular accident) Thyroid disorder Ulcer Arthritis Father Diabetes Heart disease Myocardial infarction Arthritis Hypertension High cholesterol Skin cancer Son , age 17 Asthma Large B-cell lymphoma Other Anxiety Melanoma Respiratory disease Surgical History Hx of cystoscopy History of colonoscopy History of cystoscopy Hx of cystoscopy History of cystoscopy Hx of hysterectomy Hx of cystoscopy History of esophagogastroduodenoscopy (EGD) (~01/20/20) Hx of nasal septoplasty Hx of prior ablation treatment Hx of tonsillectomy Hx of cholecystectomy History of lymph node biopsy History of tonsillectomy History of partial hysterectomy History of ankle surgery History of sinus surgery Social History household members: children Smoking Status: Current every day smoker tobacco type: cigarettes Tobacco: How many years used: 25 alcohol intake: never substance use type: does not use what type of physical activity do you participate in: none do you feel safe at home: Yes Review of Systems (Anesthesia) ROS Narrative System reviewed and no additional complaints, except as documented.
--- NOTE | 2024-08-18 14:28 | HP.PCM_ITS ---
HPI - General General Date of Admission: 08/18/24 Date of Service: 08/18/24 Chief Complaint: Diarrhea HPI Narrative RAKESH HEARN, is a 49 F who presents \ for ER FU with c/o gut-wrenching abdominal pain. She had called the office prior to going to ER last night and reported that she had seen blood in her vomit. She did admit to having a bloody nose the night before, but not through the day. She reports having urgency diarrhea within 10 to 20 minutes of eating anything, even just a saltine. She is a diabetic and has had a cholecystectomy. Last EGD 12/2021 with irregular Z-line 38cm from incisors, gastritis, duodenitis and pathology for SSBE and no follow-up since; last colonoscopy 09/2023 with 3 polypectomies from sigmoid colon. She reports having been on omeprazole 40mg BID for over a year now and pantoprazole for 5 years before that. She is now having difficulty swallowing with frequent throat clearing and cough. She denies waking with sour taste in her mouth or increased belching. She reports epigastric abdominal pain, cramping, then diarrhea. She reports frequent nausea, occasional vomiting and states that dicyclomine was not helpful. She states that she has seen blood only while wiping, not in toilet or wrapped around stool. Her PCP has ordered rifaximin and probiotics treatment, but she has not started them yet. Stool testing done by PCP has been negative. Abdominal/ pelvis CT scans have been negative for acute processes from the ER, on personal review of images constipation was seen. [facility] Medical History Wears dentures Thyroid disease High cholesterol Shortness of breath on exertion Diabetes Fatty liver Back pain Dietary restriction Complete edentulism, class III Acute thoracic back pain Restless leg syndrome Palpitations Palpitations HTN (hypertension) Depression with anxiety Type 2 diabetes mellitus Dizziness Headache Generalized anxiety disorder Overactive bladder Stress incontinence BiPAP (biphasic positive airway pressure) dependence Cervical radiculopathy Abdominal pain Nausea and vomiting Gastroenteritis Lesion of bladder Fatigue MARGARITA (obstructive sleep apnea) COPD (chronic obstructive pulmonary disease) Bronchitis Costochondritis HTN (hypertension) MARGARITA (obstructive sleep apnea) UTI (urinary tract infection) Stress incontinence Wears glasses Depression Anxiety Arthritis Bladder disease History of renal disease History of hiatal hernia History of ulceration Gastric reflux History of edema History of stress test History of echocardiogram MARGARITA (obstructive sleep apnea) Pulmonary hypertension Intertriginous dermatitis associated with moisture Abdominal wall abscess Chronic back pain Left ankle pain Overactive bladder Chronic cough Smoker Venous insufficiency of both lower extremities Shortness of breath Fatty stools Diarrhea Fatigue Cancer of left kidney History of mononucleosis Asthma COPD (chronic obstructive pulmonary disease) Intestinal ulcer Anxiety and depression GERD (gastroesophageal reflux disease) H/O emotional problems Home Medications ?Medication ?Instructions ?Recorded ?Last Taken ?Type Handicap Placard #1 ea 11/28/20 Unknown Rx albuterol sulfate 90 mcg/actuation 2 inh inhalation Q4 H PRN Sob &/Or 03/21/22 09/16/23 Rx breath activated powder inhaler Wheezing #1 ea blood sugar diagnostic (FreeStyle #50 ea 08/10/22 Unkn own Rx Test strips) blood-glucose meter (FreeStyle #1 ea 08/10/22 Unknown Rx System Kit) lancets 28 gauge (FreeStyle #50 ea 08/10/22 Unknown Rx Lancets) metoprolol succinate 25 mg 25 mg PO BID #180 tabs 10/1308/18/24 Rx tablet,extended release 24 hr gabapentin 300 mg capsule 300 mg PO TID 08/27/2309/15 History ibuprofen 600 mg tablet (IBU) 600 mg PO Q8H PRN PRN pa in 08/30/23 Unknown History lisinopril 20 1 tab PO DAILY 09/13/2311/03 History mg-hydrochlorothiazide 25 mg tablet omeprazole 40 mg capsule,delayed 40 mg PO BID 10/04/23 Unknown History release dicyclomine 20 mg tablet 20 mg PO Q6H PRN PRN abdomin al 07/21/24 Unknown Rx discomfort #20 tabs metformin 1,000 mg tablet 1,000 mg PO BID 07/21/24 Unk nown History rosuvastatin 10 mg tablet 10 mg PO DAILY 07/21/24 Unkn own History vonoprazan 10 mg tablet 10 mg PO QDAY #30 tabs 08/07 Unknown Rx sucralfate 1 gram tablet (Carafate) 1 g PO BID #20 tab s 08/10/24 Unknown Rx tirzepatide 2.5 mg/0.5 mL 2.5 mg subcut FR 08/13/24 History subcutaneous pen injector (Mounjaro) Allergy/AdvReac Type Severity Reaction Status Date / Time cefaclor (From Ceclor) Allergy Hives Verified 08/18/24 13:17 ciprofloxacin (From Cipro) Allergy Itching Verified 08/18/24 13:17 erythromycin base Allergy Upset Verified 08/18/24 13:17 (Erythromycin Base) Stomach moxifloxacin HCl (From Allergy Hives Verified 08/18/24 13:17 Avelox) sulfamethoxazole (From Allergy Unknown Verified 08/18/24 13:17 Bactrim) trimethoprim (From Bactrim) Allergy Unknown Verified 08/13/24 14:39 Family History Mother CVA (cerebral vascular accident) Thyroid disorder Ulcer Arthritis Father Diabetes Heart disease Myocardial infarction Arthritis Hypertension High cholesterol Skin cancer Son , age 17 Asthma Large B-cell lymphoma Other Anxiety Melanoma Respiratory disease Surgical History Hx of cystoscopy History of colonoscopy History of cystoscopy Hx of cystoscopy History of cystoscopy Hx of hysterectomy Hx of cystoscopy History of esophagogastroduodenoscopy (EGD) (~01/20/20) Hx of nasal septoplasty Hx of prior ablation treatment Hx of tonsillectomy Hx of cholecystectomy History of lymph node biopsy History of tonsillectomy History of partial hysterectomy History of ankle surgery History of sinus surgery Social History household members: children Smoking Status: Current every day smoker (Patient smoked today.) tobacco type: cigarettes Tobacco: How many years used: 25 alcohol intake: never substance use type: does not use what type of physical activity do you participate in: none do you feel safe at home: Yes ROS Constitutional Constitutional: Denies fatigue, fever(s), poor appetite, weight gain or weight loss Gastrointestinal Gastrointestinal: Denies belching, bloating, change in bowel habits, change in stool character, chewing difficulty, coffee ground emesis, constipation, cramping, diarrhea, dyspepsia, dysphagia, early satiety, excessive flatus, fecal incontinence, heartburn, hematemesis, hematochezia, hemorrhoids, loose stools, melena, nausea, odynophagia, rectal bleeding, tenesmus, vomiting or weight changes Vital Signs Vital Signs Vital Signs: 08/18/24 13:26 08/18/24 13:26 08/18/24 14:23 Temperature 98.0 F 98.0 F Temperature Source Temporal Pulse Rate 91 91 Respiratory Rate 18 18 Respiratory Pattern Normal Blood Pressure 119/82 H 119/82 H Blood Pressure Mean 94 Blood Pressure Source Monitor Blood Pressure Position Semi-Fowlers Blood Pressure Location Left Forearm Pulse Ox 99 99 Oxygen Delivery Method Room Air Room Air Weight Weight: 288 lb 12.889 oz Body Mass Index (BMI) 48.0 Physical Exam Const alert, oriented x3, no apparent distress and healthy appearing General Appearance: cooperative GI normal to inspection, nondistended, normoactive bowel sounds, soft to palpation, non-tender and non-distended Percussion: normal to percussion Rectal Exam: deferred Results Lab / Micro Data Labs: Laboratory Results - last 24 hr 08/18/24 13:21: POC Glucose 124 H Assessment & Plan Assessment/Plan (1) Blood in the stool: (2) Esophagitis: (3) Dysphagia: QUALIFIERS: Dysphagia type: esophageal phase Qualified Code(s): R13.19 - Other dysphagia (4) Gastritis: (5) Epigastric pain: (6) Diarrhea: QUALIFIERS: Diarrhea type: unspecified type Qualified Code(s): R19.7 - Diarrhea, unspecified (7) Fatty stools: PLAN: Assessment and Plan Assessment and Plan (1) Abdominal pain: Status: Acute Qualifiers: Abdominal location: generalized Qualified Code(s): R10.84 - Generalized abdominal pain Medications: Discontinued cholestyramine-aspartame 4 gram (Cholestyramine Light) administer w/meal; avoid other meds within 1hr before or 4-6hr after dose Discontinued Reason: Order Completed 4 grams PO BID 239.4 grams 0RF Plan RAKESH HEARN, is a 49 F who presents to the office today for ER FU with c/o gut-wrenching abdominal pain. Differential diagnoses include: PUD, gastritis, food allergies, IBS. EPI, IBD and enteric pathology ruled out. TSH elevated. Discussed care plan with her. * dulcolax tablets, take 2 at HS, to start cleaning colon * continue omeprazole until vonoprazan received * complete rifaximin treatment from PCP * blood for food allergies * recheck TSH in 3months * schedule EGD for SSBE, hx of gastritis * schedule colonoscopy for chronic diarrhea * office FU with test results
--- NOTE | 2024-08-18 15:10 | OP.CCLET_ITS ---
08/24/2024 Juan Daniel Marrero [facility], Enterprise Software Engineer-c Re : Upper GI endoscopy procedure for Odette Burrows Dear Janes This procedure was performed on Sunday, August 18, 2024. My impressions and recommendations are as follows: Impressions : - Small (< 5 mm) esophageal varices. - Erythematous mucosa in the stomach. Biopsied. - Erythematous duodenopathy. Recommendations : - Discharge patient to home. - Resume previous diet. - Continue present medications. - Await pathology results. My findings are described in the full procedure note, which is enclosed. If I can be of further assistance, please feel free to contact me at . Sincerely, Ron Horton, 08/18/2024 3:10:16 PM This report has been signed electronically.
--- NOTE | 2024-08-18 15:10 | OP.EGD_ITS ---
Patient Name: Odette Burrows Procedure Date: 08/18/2024 2:35 PM Date of : 1975 Age: 49 Procedure: Upper GI endoscopy Indications: Functional Dyspepsia, Dysphagia Providers: Ron Hortno DO Referring MD: Juan Daniel Martins, Hand Funnel Coater-c Medicines: Monitored Anesthesia Care Patient Profile: This is a 49 year old female. Refer to note in patient chart for documentation of history and physical. Patient has symptoms of chronic epigastric abdominal pain, chronic dysphagia, dysphagia with both liquids and solids and chronic nausea. Complications: No immediate complications. Procedure: Pre-Anesthesia Assessment: - Prior to the procedure, a History and Physical was performed, and patient medications and allergies were reviewed. The patient is competent. The risks and benefits of the procedure and the sedation options and risks were discussed with the patient. All questions were answered and informed consent was obtained. Patient identification and proposed procedure were verified by the physician. Mental Status Examination: alert and oriented. Airway Examination: normal oropharyngeal airway and neck mobility. Respiratory Examination: clear to auscultation. CV Examination: normal. Prophylactic Antibiotics: The patient does not require prophylactic antibiotics. Prior Anticoagulants: The patient has taken no anticoagulant or antiplatelet agents. ASA Grade Assessment: II - A patient with mild systemic disease. After reviewing the risks and benefits, the patient was deemed in satisfactory condition to undergo the procedure. The anesthesia plan was to use monitored anesthesia care (MAC). Immediately prior to administration of medications, the patient was re-assessed for adequacy to receive sedatives. The heart rate, respiratory rate, oxygen saturations, blood pressure, adequacy of pulmonary ventilation, and response to care were monitored throughout the procedure. The physical status of the patient was re-assessed after the procedure. After obtaining informed consent, the endoscope was passed under direct vision. Throughout the procedure, the patient's blood pressure, pulse, and oxygen saturations were monitored continuously. The Colonoscope was introduced through the mouth, and advanced to the third part of the duodenum. Small bowel enteroscopy was deemed necessary. The upper GI endoscopy was accomplished without difficulty. The patient tolerated the procedure well. Scope In: 2:48:45 PM Scope Out: 2:50:19 PM Total Procedure Duration Time 0 hours 1 minute 34 seconds Findings: Small (< 5 mm) varices were found in the lower third of the esophagus. They were 3 mm in largest diameter. Patchy mildly erythematous mucosa without bleeding was found in the entire examined stomach. Biopsies were taken with a cold forceps for histology. Verification of patient identification for the specimen was done. Estimated blood loss was minimal. Biopsies were taken with a cold forceps for Helicobacter pylori testing. Verification of patient identification for the specimen was done. Estimated blood loss was minimal. Patchy mildly erythematous mucosa and with no stigmata of bleeding was found in the fourth portion of the duodenum. Impression: - Small (< 5 mm) esophageal varices. - Erythematous mucosa in the stomach. Biopsied. - Erythematous duodenopathy. Recommendation: - Discharge patient to home. - Resume previous diet. - Continue present medications. - Await pathology results. Procedure Code(s): --- Professional --- 86283, Small intestinal endoscopy, enteroscopy beyond second portion of duodenum, not including ileum; with biopsy, single or multiple CPT copyright 2021 [employer]. All rights reserved. The codes documented in this report are preliminary and upon pharmacy scheduler review may be revised to meet current compliance requirements. Ron Horton DO 08/18/2024 3:10:16 PM This report has been signed electronically. Number of Addenda: 0 Note Initiated On: 08/18/2024 2:35 PM
--- NOTE | 2024-08-18 15:13 | OP.COLON_ITS ---
Patient Name: Odette Burrows Procedure Date: 08/18/2024 2:50 PM Date of : 1975 Age: 49 Procedure: Colonoscopy Indications: Chronic diarrhea Providers: Ron Horton DO Referring MD: Juan Daniel Marrero serina, Head Of Physics-c Medicines: Monitored Anesthesia Care Patient Profile: This is a 49 year old female. Refer to note in patient chart for documentation of history and physical. Patient has symptoms of chronic epigastric abdominal pain, chronic dysphagia, dysphagia with both liquids and solids and chronic nausea. Last Colonoscopy: several years ago. Complications: No immediate complications. Procedure: Pre-Anesthesia Assessment: - Prior to the procedure, a History and Physical was performed, and patient medications and allergies were reviewed. The patient is competent. The risks and benefits of the procedure and the sedation options and risks were discussed with the patient. All questions were answered and informed consent was obtained. Patient identification and proposed procedure were verified by the physician. Mental Status Examination: alert and oriented. Airway Examination: normal oropharyngeal airway and neck mobility. Respiratory Examination: clear to auscultation. CV Examination: normal. Prophylactic Antibiotics: The patient does not require prophylactic antibiotics. Prior Anticoagulants: The patient has taken no anticoagulant or antiplatelet agents. ASA Grade Assessment: II - A patient with mild systemic disease. After reviewing the risks and benefits, the patient was deemed in satisfactory condition to undergo the procedure. The anesthesia plan was to use monitored anesthesia care (MAC). Immediately prior to administration of medications, the patient was re-assessed for adequacy to receive sedatives. The heart rate, respiratory rate, oxygen saturations, blood pressure, adequacy of pulmonary ventilation, and response to care were monitored throughout the procedure. The physical status of the patient was re-assessed after the procedure. After I obtained informed consent, the scope was passed under direct vision. Throughout the procedure, the patient's blood pressure, pulse, and oxygen saturations were monitored continuously. The Colonoscope was introduced through the anus and advanced to the terminal ileum. The colonoscopy was performed without difficulty. The patient tolerated the procedure well. The quality of the bowel preparation was adequate. The terminal ileum, ileocecal valve, appendiceal orifice, and rectum were photographed. Scope In: 2:52:19 PM Scope Withdrawal Time 0 hours 7 minutes 0 seconds Scope Out: 3:05:30 PM Total Procedure Duration Time 0 hours 13 minutes 11 seconds Findings: The perianal and digital rectal examinations were normal. An area of mildly congested mucosa was found in the rectum, in the sigmoid colon, in the descending colon and at the hepatic flexure. Biopsies were taken with a cold forceps for histology. Verification of patient identification for the specimen was done. Estimated blood loss was minimal. A few small-mouthed diverticula were found in the recto-sigmoid colon, sigmoid colon and descending colon. The terminal ileum appeared normal. Biopsies were taken with a cold forceps for histology. Verification of patient identification for the specimen was done. Estimated blood loss was minimal. Impression: - Congested mucosa in the rectum, in the sigmoid colon, in the descending colon and at the hepatic flexure. Biopsied. - Diverticulosis in the recto-sigmoid colon, in the sigmoid colon and in the descending colon. - The examined portion of the ileum was normal. Biopsied. Recommendation: - Discharge patient to home. - Resume previous diet. - Continue present medications. - Await pathology results. - Repeat colonoscopy in 5 years for surveillance. Procedure Code(s): --- Professional --- 93634, Colonoscopy, flexible; with biopsy, single or multiple CPT copyright 2021 [employer]. All rights reserved. The codes documented in this report are preliminary and upon front end software developer review may be revised to meet current compliance requirements. Ron Horton DO 08/18/2024 3:12:20 PM This report has been signed electronically. Number of Addenda: 0 Note Initiated On: 08/18/2024 2:50 PM
--- NOTE | 2024-08-18 15:13 | OP.CCLET_ITS ---
08/24/2024 Juan Daniel Marrero [facility], Garbage Truck Driver-c Re : Colonoscopy procedure for Odette Burrows Dear Janes This procedure was performed on Sunday, August 18, 2024. My impressions and recommendations are as follows: Impressions : - Congested mucosa in the rectum, in the sigmoid colon, in the descending colon and at the hepatic flexure. Biopsied. - Diverticulosis in the recto-sigmoid colon, in the sigmoid colon and in the descending colon. - The examined portion of the ileum was normal. Biopsied. Recommendations : - Discharge patient to home. - Resume previous diet. - Continue present medications. - Await pathology results. - Repeat colonoscopy in 5 years for surveillance. My findings are described in the full procedure note, which is enclosed. If I can be of further assistance, please feel free to contact me at . Sincerely, Ron Horton, 08/18/2024 3:12:20 PM This report has been signed electronically.
--- NOTE | 2024-08-18 15:19 | PCM.POST.ANE ---
Anesthesia: Postop Eval I Current Vital Signs Temperature: 97.5 F Pulse Rate: 86 Blood Pressure: 96/51 Respiratory Rate: 18 Pulse Ox: 96 Oxygen Delivery Method: Nasal Cannula Oxygen Flow Rate (L/min): 3 Assessment Airway patent: Yes Spontaneous unlabored respirations: Yes Mental status: Awake nausea: No Vomiting: No Anesthesia Complication: No Fluid Hydration Crystalloid volume administer (ml): 90 Total IV fluid infused: 90 Progress Note Post-operative progress note: no anesthesia problems, but pt complaining of stomach pain in PACU, surgeon notified Anesthesia document: Postop Eval 1 completed: Yes
[2024-08-18] MEDS: fentaNYL 100 MCG/2 ML Ampul 50 MCG IV (15:30)
--- NOTE | 2024-08-18 20:32 | PCM.POSTANE2 ---
Anesthesia Postop Eval I Sum Postop Eval Completion status Anesthesia document: Postop Eval 1 completed: Yes Anesthesia Postop Eval I Summary Anesthesia Postop Eval I Summary: Anesthesia Postop Eval I: Assessment Summary Airway patent Yes 08/18/24 15:21 [email or web address] Spontaneous unlabored Yes 08/18/24 15:21 [email or web address] respirations Mental status Awake 08/18/24 15:21 [email or web address] nausea No 08/18/24 15:21 [email or web address] Vomiting No 08/18/24 15:21 [email or web address] Anesthesia Postop Eval I: Fluid Summary Crystalloid volume administer 90 08/18/24 15:21 [email or web address] (ml) Colloids volume administered ( ml) Blood Product volume administered (ml) Total IV fluid infused 90 08/18/24 15:21 [email or web address] Anesthesia Postop Eval I: Summary Notes Anesthesia Complication No 08/18/24 15:21 [email or web address] Anesthesia Complication Comment: Post-operative progress note no anesthesia 08/18/24 15:21 [email or web address] problems, but pt complaining of stomach pain in PACU, surgeon notified Anesthesia: Postop Eval II Evaluation Mental status: Awake and Calm Pain Level: 1 nausea: No Vomiting: No Complications Anesthesia Complication: No
== END 2024-08-18 15:53 | disposition home or self-care (01) ==
LOC: EN 12:54 → AC 12:56
PROVIDERS: PCP Nurse Practitioner Family; Referring Provider Nurse Practitioner Family; Visit Provider Internal Medicine Gastroenterology
PROC: 0DJD8ZZ Inspection of Lower Intestinal Tract, Via Natural or Artificial Opening Endoscopic (ICD-10-PCS; CPT 45378; principal; 2024-08-18 13:55)
DX: K57.30 Diverticulosis of large intestine without perforation or abscess without bleeding (principal); I85.00 Esophageal varices without bleeding; J44.9 Chronic obstructive pulmonary disease, unspecified; E11.9 Type 2 diabetes mellitus without complications; R13.19 Other dysphagia; G89.29 Other chronic pain; R10.84 Generalized abdominal pain; I10 Essential (primary) hypertension; E78.00 Pure hypercholesterolemia, unspecified; K21.00 Gastro-esophageal reflux disease with esophagitis, without bleeding; K29.70 Gastritis, unspecified, without bleeding; F32.A Depression, unspecified; F41.1 Generalized anxiety disorder; F17.210 Nicotine dependence, cigarettes, uncomplicated; Z79.1 Long term (current) use of non-steroidal anti-inflammatories (NSAID); Z79.84 Long term (current) use of oral hypoglycemic drugs; Z79.85 Long-term (current) use of injectable non-insulin antidiabetic drugs; Z79.899 Other long term (current) drug therapy; Z90.49 Acquired absence of other specified parts of digestive tract
CPT/HCPCS: 45380; 44361; 82962; 88305; 88342; A4216; J2405

== ENCOUNTER → 2024-08-26 | Outpatient (CLI) | payer MEDICARE, MEDICAID, SELFPAY ==
--- NOTE | 2024-08-26 11:19 | NM_ITS ---
PROCEDURE: RENAL SCAN W/ PHARM INTERVENT 08/26/2024 REASON FOR EXAM: Left renal atrophy. TECHNIQUE: Technetium-99m DTPA intravenously with planar imaging of the abdomen. Immediate bloodflow and delayed renogram images with computer-reconstructed renogram curves. 10 mg Lasix intravenously 21 minutes after the radiopharmaceutical. RADIOPHARMACEUTICAL: 11.6 mCi of technetium labeled Mag 3. COMPARISON: None. FINDINGS: Perfusion: Decreased perfusion to the left kidney. Time-Activity Curves Left: Time to peak: 13.73 minutes Right: Time to peak 5.7 minutes Differential function: 17.7 % on the left and 82.3 % on the right. Cortical time to peak: 16 minutes on the left and 5 minutes on the right. NM/Renal Scan w/ Pharm Intervent IMPRESSION: Decreased left renal function in keeping with a decreased left renal size. Reading Location: [place] [id number]
== END | disposition home or self-care (01) ==
LOC: NM 11:17
PROVIDERS: PCP Nurse Practitioner Family; Referring Provider Urology; Visit Provider Urology
DX: N26.1 Atrophy of kidney (terminal) (principal)
CPT/HCPCS: 78708; A9562; J1940

== ENCOUNTER → 2024-09-03 | Outpatient (CLI) | payer MEDICARE, MEDICAID, SELFPAY ==
[2024-09-03 16:47] LABS: Absolute Neutrophil Count 9.9 X10^3/uL (2.0-7.7); Basophil# 0.09 X10^3/uL; Basophil% 0.6 % (0-1); Eosinophil# 0.34 X10^3/uL; Eosinophils% 2.3 % (0-5); Hemoglobin 13.1 g/dL (12.0-15.0); Lymphocyte % 25.3 % (19-41); Mean Corp Hgb Conc 33.6 g/dL (32-36); Mean Corpuscular Volume 86.3 fL (81-99); Mean Platelet Vol. 10.8 fl (6.2-12.0); Monocyte# 0.83 X10^3/uL; Monocyte% 5.5 % (0-10); NRBC Flagged by Analyzer 0 % (0-5); Neutrophil # 9.91 X10^3/uL (2.7-7.7); Platelet Count 296 K/mm3 (150-450); RBC Distribution Width CV 12.6 % (11.6-14.6); RBC Distribution Width SD 39.6 fl (35.1-43.9); Red Blood Count 4.52 M/mm3 (4.2-5.4)
[2024-09-03 18:01] LABS: Microalbumin,Random Urine < 12.0 mg/L (NO RANGE EST.)
[2024-09-03 18:12] LABS: ALB/GLOB Ratio 1.3 RATIO (0.9-2.4); AST(SGOT) 35 U/L (<=31); Alanine Aminotransfer ALT/SGPT 31 U/L (<=34); Alkaline Phosphatase 108 U/L (35-104); Anion Gap 15 (5-15); BUN 24 mg/dL (4-19); BUN/Creat Ratio 23.8 RATIO (10-20); Calcium,Total 9.7 mg/dL (7.6-11.0); Carbon Dioxide 20.9 mmol/L (21.0-32.0); Chloride 97 mmol/L (98-108); EST Glomerular Filtration Rate 68 (>60); Globulin 3.1 g/dL (2.2-4.2); Glucose 189 mg/dL (70-99); Potassium 3.8 mmol/L (3.3-5.1); Protein, Total 7.1 g/dL (5.9-8.4); Sodium Level 133 mmol/L (133-145); T4 Total, Thyroxin 8.3 ug/dL (4.8-13.9); Total Bilirubin 0.25 mg/dL (0.00-1.30)
[2024-09-07 15:08] LABS: Thyroglobulin Antibody 8.4 IU/mL (0.0-0.9); Thyroid Peroxidase AB 162 IU/mL (0-34)
== END | disposition home or self-care (01) ==
LOC: VSLAB 13:58
PROVIDERS: PCP Nurse Practitioner Family
DX: E11.9 Type 2 diabetes mellitus without complications (principal); R94.6 Abnormal results of thyroid function studies
CPT/HCPCS: 36415; 80053; 82043; 84436; 84443; 85025; 86376; 86800

== ENCOUNTER 2024-09-12 12:52 | Emergency (ER) | payer MEDICARE, MEDICAID, SELFPAY ==
[2024-09-12 12:53] VITALS: BP 149/100; PULSE 85; RESP 18; TEMP 36.9; O2SAT 97; BMI 47.9
--- NOTE | 2024-09-12 13:20 | RAD_ITS ---
PROCEDURE: ANKLE MIN 3 VIEWS 09/12/2024 REASON FOR EXAM: PAIN TECHNIQUE: 3 views of the left ankle COMPARISON: 11/23/2020 FINDINGS: Bones: No acute fracture Joints: Normal alignment. Mild degenerative changes. Soft tissues: Soft tissues are unremarkable. Other: RAD/Ankle min 3 Views IMPRESSION: DEGENERATIVE OSTEOARTHROSIS. NO ACUTE FINDINGS. Reading Location: [id number]
--- NOTE | 2024-09-12 13:59 | ED.VIS.LOWEX ---
HPI <GEORGE Nicholas - Last Filed: 09/12/24 14:25> History of Present Illness Chief Complaint: Lower Extremity Injury Narrative Narrative: Patient presenting today with pain to her left ankle that she has had over the past 4 days. She reports that she was outside in the [place]. Later that day she began having pain in her ankle. She reports a history of chronic ankle issues and follows with podiatry here in [place]. She has been icing the area and taking ibuprofen with minimal relief. She denies any direct trauma to her ankle. She denies any other pain or injury. [facility] <GEORGE Nicholas - Last Filed: 09/12/24 14:25> [facility] Medical History Wears dentures Thyroid disease High cholesterol Shortness of breath on exertion Diabetes Fatty liver Back pain Dietary restriction Complete edentulism, class III Acute thoracic back pain Restless leg syndrome Palpitations Palpitations HTN (hypertension) Depression with anxiety Type 2 diabetes mellitus Dizziness Headache Generalized anxiety disorder Overactive bladder Stress incontinence BiPAP (biphasic positive airway pressure) dependence Cervical radiculopathy Abdominal pain Nausea and vomiting Gastroenteritis Lesion of bladder Fatigue MARGARITA (obstructive sleep apnea) COPD (chronic obstructive pulmonary disease) Bronchitis Costochondritis HTN (hypertension) MARGARITA (obstructive sleep apnea) UTI (urinary tract infection) Stress incontinence Wears glasses Depression Anxiety Arthritis Bladder disease History of renal disease History of hiatal hernia History of ulceration Gastric reflux History of edema History of stress test History of echocardiogram MARGARITA (obstructive sleep apnea) Pulmonary hypertension Intertriginous dermatitis associated with moisture Abdominal wall abscess Chronic back pain Left ankle pain Overactive bladder Chronic cough Smoker Venous insufficiency of both lower extremities Shortness of breath Fatty stools Diarrhea Fatigue Cancer of left kidney History of mononucleosis Asthma COPD (chronic obstructive pulmonary disease) Intestinal ulcer Anxiety and depression GERD (gastroesophageal reflux disease) H/O emotional problems Home Medications ?Medication ?Instructions ?Recorded ?Last Taken ?Type Handicap Placard #1 ea 11/28/20 Unknown Rx albuterol sulfate 90 mcg/actuation 2 inh inhalation Q4H PRN Sob &/Or 03/21/22 09/16/23 Rx breath activated powder inhaler Wheezing #1 ea blood sugar diagnostic (FreeStyle #50 ea 08/10/22 Unknown Rx Test strips) blood-glucose meter (FreeStyle #1 ea 08/10/22 Unknown Rx System Kit) lancets 28 gauge (FreeStyle #50 ea 08/10/22 Unknown Rx Lancets) metoprolol succinate 25 mg 25 mg PO BID #180 tabs 11/09/22 08/18/24 Rx tablet,extended release 24 hr gabapentin 300 mg capsule 300 mg PO TID 08/27/23 09/16/23 History ibuprofen 600 mg tablet (IBU) 600 mg PO Q8H PRN PRN pain 08/30/23 Unknown History lisinopril 20 1 tab PO DAILY 09/13/23 09/16/23 History mg-hydrochlorothiazide 25 mg tablet dicyclomine 20 mg tablet 20 mg PO Q6H PRN PRN abdominal 07/21/24 Unknown Rx discomfort #20 tabs metformin 1,000 mg tablet 1,000 mg PO BID 07/21/24 Unknown History rosuvastatin 10 mg tablet 10 mg PO DAILY 07/21/24 Unknown History sucralfate 1 gram tablet (Carafate) 1 g PO BID #20 tabs 08/10/24 Unknown Rx tirzepatide 2.5 mg/0.5 mL 2.5 mg subcut FR 08/13/24 07/31/24 History subcutaneous pen injector (Sawro) famotidine 40 mg tablet 40 mg PO BID #60 tabs 09/03/24 Unknown Rx lansoprazole 30 mg capsule,delayed 30 mg PO QDAY #30 caps 09/03/24 Unknown Rx release vonoprazan 10 mg tablet 10 mg PO QDAY #30 tabs 09/03/24 Unknown Rx Allergy/AdvReac Type Severity Reaction Status Date / Time cefaclor (From Ceclor) Allergy Hives Verified 09/12/24 12:53 ciprofloxacin (From Cipro) Allergy Itching Verified 09/12/24 12:53 erythromycin base Allergy Upset Verified 09/12/24 12:53 (Erythromycin Base) Stomach moxifloxacin HCl (From Allergy Hives Verified 09/12/24 12:53 Avelox) sulfamethoxazole (From Allergy Unknown Verified 09/12/24 12:53 Bactrim) trimethoprim (From Bactrim) Allergy Unknown Verified 09/12/24 12:53 Family History Mother CVA (cerebral vascular accident) Thyroid disorder Ulcer Arthritis Father Diabetes Heart disease Myocardial infarction Arthritis Hypertension High cholesterol Skin cancer Son , age 17 Asthma Large B-cell lymphoma Other Anxiety Melanoma Respiratory disease Surgical History Hx of cystoscopy History of colonoscopy History of cystoscopy Hx of cystoscopy History of cystoscopy Hx of hysterectomy Hx of cystoscopy History of esophagogastroduodenoscopy (EGD) (~01/20/20) Hx of nasal septoplasty Hx of prior ablation treatment Hx of tonsillectomy Hx of cholecystectomy History of lymph node biopsy History of tonsillectomy History of partial hysterectomy History of ankle surgery History of sinus surgery Social History household members: children Smoking Status: Current some day smoker tobacco type: cigarettes Tobacco: How many years used: 25 alcohol intake: never substance use type: does not use what type of physical activity do you participate in: none do you feel safe at home: Yes ROS <GEORGE Nicholas - Last Filed: 09/12/24 14:25> ROS ED Constitutional Constitutional ED: Denies chills or fever(s) Cardiovascular Cardiovascular: Denies chest pain Respiratory/Chest Respiratory/Chest: Denies dyspnea Gastrointestinal Gastrointestinal: Denies abdominal pain Musculoskeletal Musculoskeletal: Reports arthralgias Integumentary Denies Abrasions or rash Neurologic Neurologic: Denies paresthesias EXAM <GEORGE Nicholas - Last Filed: 09/12/24 14:25> Physical Exam Const Vital Signs: 09/12/24 12:53 09/12/24 14:01 Temperature 98.4 F 97.2 F L Temperature Source Oral Pulse Rate 85 71 Respiratory Rate 18 18 Blood Pressure 149/100 H 106/82 H Blood Pressure Mean 116 90 Pulse Ox 97 97 Oxygen Delivery Method Room Air Positive well nourished, well developed and no apparent distress General Appearance ED: well developed HEENT Reports normocephalic and head/scalp atraumatic Mouth ED: Yes moist mucous membranes normal Eyes PERRL and EOMs intact bilaterally Neck full ROM and supple Chest Wall inspection of chest normal Resp normal respiratory effort and clear to auscultation bilaterally Cardio regular rate and regular rhythm Back/Spine Back/Spine Narrative: Normal ROM Extremity normal to inspection Extremity Narrative: Limited dorsiflexion to the left foot due to pain. Pain to the anterior distal aspect of the left lower extremity. No pain to the lateral medial malleolus, no foot tenderness. Left DP pulse 2+, good cap refill, sensation intact. No proximal fibular tenderness Neuro moves all extremities, no focal motor deficits and no sensory deficits noted Sensorium / Orientation: awake and alert Psych mental status grossly normal and thought process normal Skin no rashes or lesions noted and no wounds <Artie Nick MD - Last Filed: 09/12/24 16:22> Physical Exam Const Vital Signs: 09/12/24 12:53 09/12/24 14:01 Temperature 98.4 F 97.2 F L Temperature Source Oral Pulse Rate 85 71 Respiratory Rate 18 18 Blood Pressure 149/100 H 106/82 H Blood Pressure Mean 116 90 Pulse Ox 97 97 Oxygen Delivery Method Room Air [facility] <GEORGE Nicholas - Last Filed: 09/12/24 14:25> [facility] Narrative Medical decision making narrative: Patient presenting today with pain to her left ankle that she has had over the past 4 days after she was walking around in [place]. She has pain to the anterior distal aspect of the left leg, no tenderness to the lateral medial malleolus, no foot tenderness, suspect she has more of a strain. She is neurovascularly intact and is able to ambulate. Ankle x-ray obtained and is negative for fracture. She does have degenerative arthritis which she is aware of, she does follow with podiatry. I did offer her Tylenol/ibuprofen and she declined, she drove here and therefore was unable to take anything stronger. She was given an [place] wrap, RICE instructions discussed. Recommended she alternate Tylenol and ibuprofen as needed for her pain. Recommended she follow-up with podiatry if no improvement over the next 5 to 7 days. She will be discharged home in stable condition. Radiography X-Ray: Read by ED Physician Diagnostic Testing: Clinical Impression(s) from Imaging Studies Ankle X-Ray 09/12/24 13:20 IMPRESSION: DEGENERATIVE OSTEOARTHROSIS. NO ACUTE FINDINGS. Reading Location: [id number] <Artie Nick MD - Last Filed: 09/12/24 16:22> MDM Radiography Diagnostic Testing: Clinical Impression(s) from Imaging Studies Ankle X-Ray 09/12/24 13:20 IMPRESSION: DEGENERATIVE OSTEOARTHROSIS. NO ACUTE FINDINGS. Reading Location: [id number] Treatment and Re-Evaluation Narrative: Dr. Nick: I have personally performed a face to face assessment of the patient and have reviewed the RUSLAN Note. I performed a substantive portion of the visit including all aspects of the following. My dupont findings include: History is left ankle pain with history of chronic pain, after walking in the [place] looking [place]. Exam is afebrile. Vital signs noted. Inspection of the left ankle shows no noted swelling or erythema. Palpable dorsalis pedis pulse. No crepitance. Able to plantarflex and dorsiflex left foot. Medical Decision Making: Check x-rays. X-rays interpreted by myself independently shows no evidence of a fracture. I reviewed the radiology report which confirms my independent interpretation and comments on DJD. She was placed in an [place] wrap, given analgesics, and told to follow-up with podiatry. Disposition is discharged home in stable condition. Other additions or changes: [None] Discharge Plan Triage Chief Complaint: Lower Extremity Injury ED Midlevel Provider: Shila Choe ED Provider: Artie Nick Dx/Rx/DC Orders Clinical Impression: Ankle arthralgia, Degenerative joint disease of ankle, left Instructions: ED Arthralgia Prescriptions: No Action (DME) Handicap Placard See Rx Instructions .ROUTE .MEDSUPPLY Qty: 1 0RF Rx Instructions: As directed, length of time 3 years (DME) FreeStyle Test Strip See Rx Instructions .ROUTE .MEDSUPPLY Qty: 50 11RF Rx Instructions: check blood glucose daily (DME) blood-glucose meter [FreeStyle System Kit] Kit See Rx Instructions .ROUTE .MEDSUPPLY Qty: 1 0RF Rx Instructions: check blood glucose daily for type 2 DM (DME) lancets [FreeStyle Lancets] 28 gauge misc See Rx Instructions .ROUTE .MEDSUPPLY Qty: 50 11RF Rx Instructions: Check blood glucose daily for type 2 DM metoprolol succinate 25 mg tablet extended release 24 hr 25 mg PO BID Qty: 180 1RF gabapentin 300 mg capsule 300 mg PO TID lansoprazole 30 mg capsule,delayed release(DR/EC) 30 mg PO QDAY Qty: 30 0RF famotidine 40 mg tablet 40 mg PO BID Qty: 60 2RF vonoprazan 10 mg tablet 10 mg PO QDAY Qty: 30 2RF metformin 1,000 mg tablet 1,000 mg PO BID rosuvastatin 10 mg tablet 10 mg PO DAILY dicyclomine 20 mg tablet 20 mg PO Q6H PRN PRN (Reason: abdominal discomfort) Qty: 20 0RF sucralfate [Carafate] 1 gram tablet 1 g PO BID Qty: 20 0RF lisinopril-hydrochlorothiazide 20-25 mg tablet 1 tab PO DAILY ibuprofen [IBU] 600 mg tablet 600 mg PO Q8H PRN PRN (Reason: pain) Mounjaro 2.5 mg/0.5 mL pen injector 2.5 mg subcut FR Patient Comments: stopped for EGD on 08/18/2024 Rx Instructions: for 4 weeks albuterol sulfate 90 mcg/actuation aerosol powdr breath activated 2 inh INHALATION Q4H PRN (Reason: Sob &/Or Wheezing) Qty: 1 3RF Primary Care Provider: Juan Daniel Marrero Referrals: Juan Daniel Marrero, [facility] [Primary Care Provider] - Activity Restrictions/Additional Instructions: 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 Print Language: Bengali Disposition Disposition: Home, Self Care Discharge Date/Time: 09/12/24 14:06
[2024-09-12 14:01] VITALS: BP 106/82; PULSE 71; RESP 18; TEMP 36.2; O2SAT 97
== END 2024-09-12 14:06 | disposition home or self-care (01) ==
PROVIDERS: Emergency Provider Emergency Medicine; PCP Nurse Practitioner Family; Visit Provider Emergency Medicine
DX: M19.072 Primary osteoarthritis, left ankle and foot (principal); J44.9 Chronic obstructive pulmonary disease, unspecified; E11.9 Type 2 diabetes mellitus without complications; M79.605 Pain in left leg; M54.9 Dorsalgia, unspecified; G89.29 Other chronic pain; I10 Essential (primary) hypertension; E78.00 Pure hypercholesterolemia, unspecified; F17.210 Nicotine dependence, cigarettes, uncomplicated; Z79.84 Long term (current) use of oral hypoglycemic drugs; Z79.85 Long-term (current) use of injectable non-insulin antidiabetic drugs; Z79.899 Other long term (current) drug therapy
CPT/HCPCS: 73610; 99282

== ENCOUNTER → 2024-09-25 | Outpatient (CLI) | payer MEDICARE, MEDICAID, SELFPAY ==
--- NOTE | 2024-09-25 13:00 | US_ITS ---
PROCEDURE: THYROID 09/25/2024 REASON FOR EXAM: GOITER TECHNIQUE: High-frequency thyroid ultrasound, including grayscale and color-flow images. REFERENCE LINKS: TI-RADS Chart: [email or web address] TI-RADS Calculator Tool with Reference Images: [email or web address]/ COMPARISON: None FINDINGS: Right thyroid lobe size: 4.9 cm x 1.8 cm 2 cm Left thyroid lobe size: 4.6 cm x 1.8 cm 1.5 cm Isthmus: 0.46 cm Background parenchymal echotexture is heterogeneous Nodules: No thyroid nodule seen. US/Thyroid IMPRESSION: Heterogeneous appearance of both lobes of the thyroid gland without evidence of a nodule. RECOMMENDATION: Based on most suspicious nodule. Nodule size = largest diameter Only evaluate nodule if =>5 mm. Growth > 20% in 2 dimensions = worsening. Follow up to 4 nodules. Recommend biopsy for no more than 2 nodules. Reading Location: [id number]
== END | disposition home or self-care (01) ==
LOC: US 12:59
PROVIDERS: PCP Nurse Practitioner Family
DX: E04.9 Nontoxic goiter, unspecified (principal)
CPT/HCPCS: 76536

== ENCOUNTER → 2024-10-02 | Outpatient (CLI) | payer MEDICARE, MEDICAID, SELFPAY ==
--- NOTE | 2024-10-02 08:07 | RDU_ITS ---
Reason For Study Reason For Study: CKD Stage 3 Right Renal Artery Left Renal Artery Right renal artery ostium 98.4/29.0 Left renal artery ostium 168.9/23.8 RSV/EDV. PSV/EDV. Right renal artery proximal 223.3/42.8 Left renal artery proximal PSV/EDV PSV/EDV. 96.4/16.1 . Right renal artery mid 210.8/37.8 Left renal artery mid 127.5/18.7 PSV/EDV. PSV/EDV . Right renal artery distal 163.5/37.9 Left renal artery distal 114.5/26.4 PSV/EDV. PSV/EDV. Right RAR 2.40. Left RAR 1.82. Right Renal Parenchyma Left Renal Parenchyma Upper Pole Medula 32.6/8.9 PSV/EDV. Left upper pole medulla 39.3/13.0 Right upper pole medulla EDR 0.30 . PSV/EDV . Right upper pole medulla R.I. 0.73 . Left upper pole medulla EDR 0.30 . Upper Brennen Cortx 27.4/6.6 PSV/EDV. Left upper pole medulla R.I. 0.67 . Right upper pole cortex EDR 0.20 . UP Cortex 25.1/10.8 PSV/EDV. Right upper pole cortex R.I. 0.76 . Left upper pole cortex EDR 0.40 . Right lower Pole medulla 42.7/14.5 Left upper pole cortex R.I. 0.57 . PSV/EDV . Left lower Pole medulla 26.7/6.9 Right lower pole medulla EDR 0.30 . PSV/EDV . Right lower pole medulla R.I. 0.66 . Left lower pole medulla EDR 0.30 . Lower Pole Cortex 25.3/8.3 PSV/EDV. Left lower pole medulla R.I. 0.74 . Right lower pole cortex EDR 0.30 . Lower Pole Cortx 16.8/6.4 PSV/EDV. Right lower pole cortex R.I. 0.67 . Left lower pole cortex EDR 0.40 . Right Renal Hilar Left lower pole cortex R.I. 0.62 . Right Hilar avg 176.6/40.8 PSV/EDV. Left Renal Hilar Right hilar acceleration time 30 m/sec. LT Hilar avg 49.8/14.3 PSV/EDV . Right Renal Dimensions Left hilar acceleration time 30 m/sec. Right kidney size 10.67 cm . Left Renal Dimensions Right cortical dimension 1.98 cm . Left kidney size 8.16 cm . Left cortical dimension 1.54 cm . Aorta Proximal abdominal aorta 2.30 x 2.41 cm . Proximal abdominal aorta peak systolic velocity is 111.2 cm/sec . Distal abdominal aorta 1.36 x 1.43 cm . Distal abdominal aorta peak systolic velocity is 91.1 cm/sec . VL/Renal Artery Duplex Ultrasound Interpretation Summary Right renal artery patent with < 60% stenosis. Left renal artery patent with normal velocities and no evidence of stenosis. Right renal vein patent. Left renal vein patent. Right kidney normal in size. Left kidney diminshed in size. Ordering Physician: Winifred Malloy Referring Physician: Juan Daniel Marrero Performed By: iH Sanchez RVT
== END | disposition home or self-care (01) ==
LOC: CVS 08:07
PROVIDERS: PCP Nurse Practitioner Family; Referring Provider Physician Assistant; Visit Provider Physician Assistant
DX: N18.30 Chronic kidney disease, stage 3 unspecified (principal); N27.0 Small kidney, unilateral
CPT/HCPCS: 93975

== ENCOUNTER → 2024-10-09 | Outpatient (CLI) | payer MEDICARE, MEDICAID, SELFPAY ==
[2024-10-09 13:15] LABS: T4 Total, Thyroxin 12.3 ug/dL (4.8-13.9)
== END | disposition home or self-care (01) ==
LOC: VSLAB 09:29
PROVIDERS: PCP Nurse Practitioner Family
DX: E06.3 Autoimmune thyroiditis (principal)
CPT/HCPCS: 36415; 84436; 84439; 84443

== ENCOUNTER → 2024-12-09 | Outpatient (CLI) | payer MEDICARE, MEDICAID, SELFPAY | END | disposition home or self-care (01) | LOC: VSLAB 14:27 | PROVIDERS: PCP Nurse Practitioner Family; Visit Provider Nurse Practitioner Family | DX: E06.3 Autoimmune thyroiditis (principal) | CPT/HCPCS: 36415; 84443 ==

== ENCOUNTER → 2025-02-16 | Outpatient (CLI) | payer MEDICARE, MEDICAID, SELFPAY ==
[2025-02-16 10:33] LABS: Hematocrit 44.7 % (37-47); Hemoglobin 14.9 g/dL (12.0-15.0); Immature Granulocytes Count 0.040 X10^3/uL (0.0-0.0); Mean Corp Hgb Conc 33.3 g/dL (32-36); Mean Corpuscular Volume 85.0 fL (81-99); Mean Platelet Vol. 10.3 fl (6.2-12.0); NRBC Flagged by Analyzer 0 % (0-5); Platelet Count 321 K/mm3 (150-450); RBC Distribution Width CV 13.2 % (11.6-14.6); RBC Distribution Width SD 41.1 fl (35.1-43.9); Red Blood Count 5.26 M/mm3 (4.2-5.4); White Blood Count 14.2 K/mm3 (4.4-11.0)
[2025-02-16 10:41] LABS: Prothrombin Time (Protime)PT. 13.2 SECONDS (11.7-14.9)
[2025-02-16 11:14] LABS: AST(SGOT) 18 U/L (<=31); Alanine Aminotransfer ALT/SGPT 15 U/L (<=34); Albumin, Serum 4.4 g/dL (3.5-5.0); Alkaline Phosphatase 126 U/L (35-104); Anion Gap 14 (5-15); BUN 15 mg/dL (4-19); BUN/Creat Ratio 17.0 RATIO (10-20); Calcium,Total 9.8 mg/dL (7.6-11.0); Carbon Dioxide 24.3 mmol/L (21.0-32.0); Chloride 100 mmol/L (98-108); Globulin 3.3 g/dL (2.2-4.2); Glucose 100 mg/dL (70-99); Potassium 3.6 mmol/L (3.3-5.1)
== END | disposition home or self-care (01) ==
PROVIDERS: PCP Nurse Practitioner Family
DX: L29.9 Pruritus, unspecified (principal)
CPT/HCPCS: 36415; 80053; 84443; 85025; 85610

== ENCOUNTER → 2025-03-24 | Outpatient (CLI) | payer MEDICARE, MEDICAID, SELFPAY ==
[2025-03-24 17:46] LABS: AST(SGOT) 18 U/L (<=31); Alanine Aminotransfer ALT/SGPT 20 U/L (<=34); Albumin, Serum 3.9 g/dL (3.5-5.0); Alkaline Phosphatase 105 U/L (35-104); Anion Gap 14 (5-15); BUN 13 mg/dL (4-19); BUN/Creat Ratio 16.5 RATIO (10-20); Calcium,Total 9.7 mg/dL (7.6-11.0); Carbon Dioxide 21.8 mmol/L (21.0-32.0); Chloride 99 mmol/L (98-108); Follicle Stimulating Hormone 55.0 mIU/mL; Globulin 3.0 g/dL (2.2-4.2); Glucose 133 mg/dL (70-99); Potassium 3.7 mmol/L (3.3-5.1)
[2025-03-24 17:51] LABS: Hematocrit 43.0 % (37-47); Hemoglobin 14.2 g/dL (12.0-15.0); Immature Granulocytes Count 0.070 X10^3/uL (0.0-0.0); Mean Corp Hgb Conc 33.0 g/dL (32-36); Mean Corpuscular Volume 86.2 fL (81-99); Mean Platelet Vol. 10.6 fl (6.2-12.0); NRBC Flagged by Analyzer 0 % (0-5); Platelet Count 350 K/mm3 (150-450); RBC Distribution Width CV 13.6 % (11.6-14.6); RBC Distribution Width SD 42.5 fl (35.1-43.9); Red Blood Count 4.99 M/mm3 (4.2-5.4); White Blood Count 14.1 K/mm3 (4.4-11.0)
[2025-03-24 18:08] LABS: hCG Titer Quant., Serum 7 mIU/mL (<9 non-preg)
[2025-03-26 08:09] LABS: PROGESTERONE 0.1 ng/mL (.); PROLACTIN 6.1 ng/mL (3.6-25.2)
== END | disposition home or self-care (01) ==
LOC: VSLAB 11:40
PROVIDERS: PCP Nurse Practitioner Family; Referring Provider Nurse Practitioner Family; Visit Provider Nurse Practitioner Family
DX: K52.9 Noninfective gastroenteritis and colitis, unspecified (principal); R89.1 Abnormal level of hormones in specimens from other organs, systems and tissues
CPT/HCPCS: 36415; 80053; 82670; 83001; 83002; 84144; 84146; 84702; 85025; 86304

== ENCOUNTER → 2025-03-29 | Outpatient (CLI) | payer MEDICARE, MEDICAID, SELFPAY ==
--- NOTE | 2025-03-29 10:28 | US_ITS ---
PROCEDURE: TRANSVAGINAL NON- 03/29/2025 REASON FOR EXAM: ABN LEVELS TECHNIQUE: Procedure Code: USTVAG Modality: US Procedure: TRANSVAGINAL NON- COMPARISON: None FINDINGS: Measurements: Uterus: Status post hysterectomy. Right Ovary: Not visualized. Left Ovary: Not visualized. Uterus: Status post hysterectomy. Right ovary: Not visualized. Left ovary: Not visualized. Other: No large pelvic mass identified. US/Transvaginal Non- IMPRESSION: Status post hysterectomy. The ovaries were not visualized. Reading Location: [id number]
== END | disposition home or self-care (01) ==
LOC: US 10:24
PROVIDERS: PCP Nurse Practitioner Family; Referring Provider Nurse Practitioner Family; Visit Provider Nurse Practitioner Family
DX: R89.1 Abnormal level of hormones in specimens from other organs, systems and tissues (principal)
CPT/HCPCS: 76830

== ENCOUNTER 2025-04-07 13:25 | Day surgery (SDC) | payer MEDICARE, MEDICAID, SELFPAY ==
--- NOTE | 2025-04-05 16:26 | PAT.ANESEVAL ---
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 When Was Last Pacemaker Check QUESTION #4 FULL TEXT: You/Your Family Experience fever (hyperthermia) with Anesthesia Last Oral Intake Last Oral intake: Last Oral Intake NPO since Meds taken in AM with sips of water? Meds patient instructed to take am of surgery PONV PONV - miniature model maker: PONV - miniature model maker Female Yes 04/05/25 14:54 HX of Motion Sickness No 04/05/25 14:54 HX of N/V After Surgery No 04/05/25 14:54 Non-Smoker No 04/05/25 14:54 Duration of Surgery greater No 04/05/25 14:54 than 60 minutes Number of Risk Factors 1 04/05/25 14:54 PONV Score Low Risk 04/05/25 14:54 Height & Weight Height & Weight: Anesthesia: Height & Weight Height 5 ft 5 in 09/12/24 12:53 Respiratory Assessment Respiratory Assessment - miniature model maker: Respiratory Tract Infection Hx - miniature model maker Hx Respiratory Tract Infection No 04/05/25 14:54 STOP Sleep Apnea STOP Sleep Apnea - miniature model maker: STOP Sleep Apnea - miniature model maker Hx Hypertension Yes: CONTROLLED WITH MEDS 04/05/25 14:54 Hx Sleep Apnea Yes 04/05/25 14:54 CPAP No 04/05/25 14:54 BIPAP Yes: NON COMPLIANT 04/05/25 14:54 Do you snore loudly (louder than talking or can be heard Do you often feel tired/ fatigued/ sleepy during daytime? Has anyone observed you stop breathing during sleep? STOP Results Positive 04/05/25 14:54 QUESTION #5 FULL TEXT : Do you snore loudly (louder than talking or can be heard through closed doors)? 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 Specify any problems Hx of Preganancy in last 3 No 04/05/25 14:54 Months Nurse Filling Out Transfusion [id number] 04/05/25 14:54 & Questions: Date: 04/05/25 04/05/25 14:54 Time: 14:57 04/05/25 14:54 Patient unable to answer at this time (ie. confused, unrespo /Reproduction History /Reproductive History - miniature model maker: /Reproductive Hx- miniature model maker Hx Now Gestational Age (in weeks): EDC: Hx Hx Para Hx Section SAB No 04/05/25 14:54 Does the father of the baby or his family experience fever w Father of the baby Malignant Hypertension history comment [facility] Medical History Wears dentures Thyroid disease High cholesterol Shortness of breath on exertion Diabetes Fatty liver Back pain Dietary restriction Complete edentulism, class III Acute thoracic back pain Restless leg syndrome Palpitations Palpitations HTN (hypertension) Depression with anxiety Type 2 diabetes mellitus Dizziness Headache Generalized anxiety disorder Overactive bladder Stress incontinence BiPAP (biphasic positive airway pressure) dependence Cervical radiculopathy Abdominal pain Nausea and vomiting Gastroenteritis Lesion of bladder Fatigue MARGARITA (obstructive sleep apnea) COPD (chronic obstructive pulmonary disease) Bronchitis Costochondritis HTN (hypertension) MARGARITA (obstructive sleep apnea) UTI (urinary tract infection) Stress incontinence Wears glasses Depression Anxiety Arthritis Bladder disease History of renal disease History of hiatal hernia History of ulceration Gastric reflux History of edema History of stress test History of echocardiogram MARGARITA (obstructive sleep apnea) Pulmonary hypertension Intertriginous dermatitis associated with moisture Abdominal wall abscess Chronic back pain Left ankle pain Overactive bladder Chronic cough Smoker Venous insufficiency of both lower extremities Shortness of breath Fatty stools Diarrhea Fatigue Cancer of left kidney History of mononucleosis Asthma COPD (chronic obstructive pulmonary disease) Intestinal ulcer Anxiety and depression GERD (gastroesophageal reflux disease) H/O emotional problems Home Medications Medication Instructions Recorded Last Taken Type Handicap Placard #1 ea 11/28/20 Unknown Rx albuterol sulfate 90 mcg/actuation 2 inh inhalation Q4H PRN Sob &/Or 03/21/22 09/16/23 Rx breath activated powder inhaler Wheezing #1 ea blood sugar diagnostic (FreeStyle #50 ea 08/10/22 Unknown Rx Test strips) blood-glucose meter (FreeStyle #1 ea 08/10/22 Unknown Rx System Kit) lancets 28 gauge (FreeStyle #50 ea 08/10/22 Unknown Rx Lancets) metoprolol succinate 25 mg 25 mg PO BID #180 tabs 11/09/22 08/18/24 Rx tablet,extended release 24 hr gabapentin 300 mg capsule 600 mg PO QHS RLS 08/27/23 09/16/23 History rosuvastatin 10 mg tablet 10 mg PO DAILY 07/21/24 Unknown History Lactobacillus acidophilus 0.5 mg 0.5 mg PO DAILY 09/22/24 Unknown History (100 million cell) tablet hydrochlorothiazide 25 mg tablet 12.5 mg PO DAILY 09/22/24 Unknown History levothyroxine 75 mcg tablet 75 mcg PO DAILY 09/22/24 Unknown History lisinopril 20 mg tablet 20 mg PO DAILY 09/22/24 Unknown History methenamine 81.6 mg-sod phos 40.8 1 tab PO .QID PRN bladder spasms 03/23/25 Unknown Rx mg-methylene blue 0.12mg-hyos #90 tabs tablet (Urogesic-Blue) hyoscyamine sulfate 0.125 mg tablet 0.125 mg PO Q6H PRN dyspepsia 1 03/24/25 Unknown Rx month #120 tabs pantoprazole 40 mg tablet,delayed 40 mg PO BID #60 tabs 03/24/25 Unknown Rx release sucralfate 1 gram tablet (Carafate) 1 g PO TID #90 tabs 03/24/25 Unknown Rx tirzepatide 7.5 mg/0.5 mL 7.5 mg subcut QWEEK 03/24/25 03/24/25 History subcutaneous pen injector (Mounjaro) Allergy/AdvReac Type Severity Reaction Status Date / Time cefaclor (From Ceclor) Allergy Hives Verified 04/05/25 13:44 ciprofloxacin (From Cipro) Allergy Itching Verified 04/05/25 13:44 erythromycin base Allergy Upset Verified 04/05/25 13:44 (Erythromycin Base) Stomach moxifloxacin HCl (From Allergy Hives Verified 04/05/25 13:44 Avelox) sulfamethoxazole (From Allergy Unknown Verified 04/05/25 13:44 Bactrim) trimethoprim (From Bactrim) Allergy Unknown Verified 04/05/25 13:44 Family History Mother CVA (cerebral vascular accident) Thyroid disorder Ulcer Arthritis Father Diabetes Heart disease Myocardial infarction Arthritis Hypertension High cholesterol Skin cancer Son , age 17 Asthma Large B-cell lymphoma Other Anxiety Melanoma Respiratory disease Surgical History Hx of cystoscopy History of colonoscopy History of cystoscopy Hx of cystoscopy History of cystoscopy Hx of hysterectomy Hx of cystoscopy History of esophagogastroduodenoscopy (EGD) (~01/20/20) Hx of nasal septoplasty Hx of prior ablation treatment Hx of tonsillectomy Hx of cholecystectomy History of lymph node biopsy History of tonsillectomy History of partial hysterectomy History of ankle surgery History of sinus surgery Social History (Updated 09/22/24 @ 08:46 by Eli Martins) household members: children Smoking Status: Light Smoker (<10/day) Tobacco: How many years used: 25 alcohol intake: never substance use type: does not use what type of physical activity do you participate in: none do you feel safe at home: Yes Audit: Pertinent Findings Pertinent Findings EKG Perinent findings: 04/2023: NSR Stress test pertinent findings: Negative stress test 07/2024 Echo (EF%) pertinent findings: EF 60% on stress test 07/2024 Recommendation Anesthesia Recommendation Anesthesia recommendation: OPTIMIZED for anesthesia
[2025-04-07] VITALS (8 sets, daily range): BP systolic 104–129; BP diastolic 42–73; PULSE 80–86; RESP 14–18; TEMP 36.1–36.6; O2SAT 98–100; BMI 43.2
--- NOTE | 2025-04-07 13:53 | PCM.HP.STD ---
HPI - General General Date of Admission: 04/07/25 Date of Service: 04/07/25 Chief Complaint: Abdominal pain and lower GI bleeding HPI Narrative [RAKESH HEANR, This is a 49-year-old patient presenting with rectal bleeding, diarrhea, and abdominal/anal pain since . Initial symptoms included chest pain that felt related to gas; burping provides relief of the chest pressure. On Saturday, went to the emergency department (ED) for large amounts of blood with bowel movements and diarrhea. Reports passing two-inch clots, foul-smelling old blood, and significant pain worsened by movement. On Saturday afternoon, bleeding changed from dark blood to bright red blood; describes toilet appearing as if filled with coffee grounds each time. Denies use of blood thinners. Chest pain is relieved by burping and prior cardiac testing was reportedly normal. A prior ED visit noted white blood cell count elevated to 27 (white blood cell count, WBC); received two days of azithromycin (Z-Albin). Kidneys reported as impaired for an unclear reason since the COVID era: left kidney functioning at 17% and right at 83%; advised previously there was nothing to do at that time. Reports significant lifestyle changes including avoiding soda, changing diet, and losing 70 pounds. Multiple ED visits over the weekend with variable assessments; one rectal exam reportedly showed no blood at the time of exam. - Hemorrhoids (patient reports prior history) - Kidney dysfunction with differential function (left 17%, right 83%) - Pelvic floor/bladder prolapse (treated with sling and bladder Botox previously) - Umbilical hernia noted on CT (small) - [Unclear] Hypertension (on “blood pressure water pill”) - History of urinary tract infections (UTIs) causing urgency at times [facility] Medical History Wears dentures Thyroid disease High cholesterol Shortness of breath on exertion Diabetes Fatty liver Back pain Dietary restriction Complete edentulism, class III Acute thoracic back pain Restless leg syndrome Palpitations Palpitations HTN (hypertension) Depression with anxiety Type 2 diabetes mellitus Dizziness Headache Generalized anxiety disorder Overactive bladder Stress incontinence BiPAP (biphasic positive airway pressure) dependence Cervical radiculopathy Abdominal pain Nausea and vomiting Gastroenteritis Lesion of bladder Fatigue MARGARITA (obstructive sleep apnea) COPD (chronic obstructive pulmonary disease) Bronchitis Costochondritis HTN (hypertension) MARGARITA (obstructive sleep apnea) UTI (urinary tract infection) Stress incontinence Wears glasses Depression Anxiety Arthritis Bladder disease History of renal disease History of hiatal hernia History of ulceration Gastric reflux History of edema History of stress test History of echocardiogram MARGARITA (obstructive sleep apnea) Pulmonary hypertension Intertriginous dermatitis associated with moisture Abdominal wall abscess Chronic back pain Left ankle pain Overactive bladder Chronic cough Smoker Venous insufficiency of both lower extremities Shortness of breath Fatty stools Diarrhea Fatigue Cancer of left kidney History of mononucleosis Asthma COPD (chronic obstructive pulmonary disease) Intestinal ulcer Anxiety and depression GERD (gastroesophageal reflux disease) H/O emotional problems Home Medications Medication Instructions Recorded Last Taken Type Handicap Placard #1 ea 11/28/20 Unknown Rx albuterol sulfate 90 mcg/actuation 2 inh inhalation Q4H PRN Sob &/Or 03/21/22 09/16/23 Rx breath activated powder inhaler Wheezing #1 ea blood sugar diagnostic (FreeStyle #50 ea 08/10/22 Unknown Rx Test strips) blood-glucose meter (FreeStyle #1 ea 08/10/22 Unknown Rx System Kit) lancets 28 gauge (FreeStyle #50 ea 08/10/22 Unknown Rx Lancets) metoprolol succinate 25 mg 25 mg PO BID #180 tabs 11/09/22 04/07/25 04:00 Rx tablet,extended release 24 hr gabapentin 300 mg capsule 600 mg PO QHS RLS 08/27/23 09/16/23 History rosuvastatin 10 mg tablet 10 mg PO DAILY 07/21/24 Unknown History Lactobacillus acidophilus 0.5 mg 0.5 mg PO DAILY 09/22/24 Unknown History (100 million cell) tablet hydrochlorothiazide 25 mg tablet 12.5 mg PO DAILY 09/22/24 Unknown History levothyroxine 75 mcg tablet 75 mcg PO DAILY 09/22/24 04/07/25 07:00 History lisinopril 20 mg tablet 20 mg PO DAILY 09/22/24 Unknown History methenamine 81.6 mg-sod phos 40.8 1 tab PO .QID PRN bladder spasms 03/23/25 Unknown Rx mg-methylene blue 0.12mg-hyos #90 tabs tablet (Urogesic-Blue) hyoscyamine sulfate 0.125 mg tablet 0.125 mg PO Q6H PRN dyspepsia 1 11/12/25 Unknown Rx month #120 tabs pantoprazole 40 mg tablet,delayed 40 mg PO BID #60 tabs 03/24/25 04/07/25 07:00 Rx release sucralfate 1 gram tablet (Carafate) 1 g PO TID #90 tabs 03/24/25 Unknown Rx tirzepatide 7.5 mg/0.5 mL 7.5 mg subcut QWEEK 03/24/25 03/24/25 History subcutaneous pen injector (Mounjaro) Allergy/AdvReac Type Severity Reaction Status Date / Time cefaclor (From Ceclor) Allergy Hives Verified 04/07/25 13:42 ciprofloxacin (From Cipro) Allergy Itching Verified 04/07/25 13:42 erythromycin base Allergy Upset Verified 04/07/25 13:42 (Erythromycin Base) Stomach moxifloxacin HCl (From Allergy Hives Verified 04/07/25 13:42 Avelox) sulfamethoxazole (From Allergy Unknown Verified 04/07/25 13:42 Bactrim) trimethoprim (From Bactrim) Allergy Unknown Verified 04/07/25 13:42 Family History Mother CVA (cerebral vascular accident) Thyroid disorder Ulcer Arthritis Father Diabetes Heart disease Myocardial infarction Arthritis Hypertension High cholesterol Skin cancer Son , age 17 Asthma Large B-cell lymphoma Other Anxiety Melanoma Respiratory disease Surgical History Hx of cystoscopy History of colonoscopy History of cystoscopy Hx of cystoscopy History of cystoscopy Hx of hysterectomy Hx of cystoscopy History of esophagogastroduodenoscopy (EGD) (~01/20/20) Hx of nasal septoplasty Hx of prior ablation treatment Hx of tonsillectomy Hx of cholecystectomy History of lymph node biopsy History of tonsillectomy History of partial hysterectomy History of ankle surgery History of sinus surgery Social History household members: children Smoking Status: Light Smoker (<10/day) Tobacco: How many years used: 25 alcohol intake: never substance use type: does not use what type of physical activity do you participate in: none do you feel safe at home: Yes ROS Constitutional Constitutional: Denies fatigue, fever(s), poor appetite, weight gain or weight loss Gastrointestinal Gastrointestinal: Denies belching, bloating, change in bowel habits, change in stool character, chewing difficulty, coffee ground emesis, constipation, cramping, diarrhea, dyspepsia, dysphagia, early satiety, excessive flatus, fecal incontinence, heartburn, hematemesis, hematochezia, hemorrhoids, loose stools, melena, nausea, odynophagia, rectal bleeding, tenesmus, vomiting or weight changes Vital Signs Vital Signs Vital Signs: 04/07/25 13:45 04/07/25 13:45 04/07/25 13:51 Temperature 98 F Temperature Source Temporal Pulse Rate 80 Respiratory Rate 14 Respiratory Pattern Normal Blood Pressure 110/73 Blood Pressure Mean 85 Blood Pressure Source Monitor Blood Pressure Position Semi-Fowlers Blood Pressure Location Left Arm Baseline BP 110/73 Pulse Ox 99 Oxygen Delivery Method Room Air Weight Weight: 260 lb 2.327 oz Body Mass Index (BMI) 43.2 Physical Exam Const alert, oriented x3, no apparent distress and healthy appearing General Appearance: cooperative GI normal to inspection, nondistended, normoactive bowel sounds, soft to palpation, non-tender and non-distended Percussion: normal to percussion Rectal Exam: deferred Assessment & Plan Assessment/Plan (1) Lower GI bleeding: (2) Esophagitis: PLAN: Assessment and Plan Assessment and Plan (1) Lower GI bleeding: Status: Acute (2) Abdominal pain: Status: Acute Qualifiers: Abdominal location: generalized Qualified Code(s): R10.84 - Generalized abdominal pain Plan: Rectal bleeding : Patient reports dark blood changing to bright red blood, with clots and foul odor, ongoing since . - Provide pain medication. - Provide medication to coat the stomach along with pain medicine. We will give her Carafate 1 g 3 times a day. - Patient will undergo colonoscopy. Differential diagnosis does include lower GI bleed secondary to ischemic colitis, inflammatory bowel disease, hemorrhoidal disease, proctitis, stercoral ulcer, diverticular disease, anal fissure and less likely malignancy. She will undergo colonoscopy. She was explained alternatives, risk and benefits include # of bleeding, infection, sepsis, perforation, need for change and . She will have an ASA of 3. Diarrhea : Ongoing diarrhea accompanying rectal bleeding. Abdominal/anal pain : Significant pain worsened by movement. - Patient will undergo an upper endoscopy. She was explained alternatives, risk and benefits going on with any bleeding, infection, subsequent perforation, emergent . She have an ASA of 3. - Provide medication to coat the stomach along with pain medicine. She will get Carafate 1 g 3 times a day and hyoscyamine 0 0.125 mg every 6 hours as needed Chest pain associated with gas/pressure : Chest pain relieved by burping; prior cardiac testing reportedly normal. Leukocytosis (white blood cell count 27 per prior ED report) : Previously treated in ED with two days of azithromycin; no current antibiotics planned. - Antibiotics not indicated at this time. Kidney dysfunction : Left kidney 17% function, right kidney 83% function; cause unclear per prior evaluations. Portions of this note were generated using voice recognition software ([employer]). I have reviewed the contents and every effort has been made to ensure accuracy; however, inadvertent errors in grammar, spelling, punctuation, or word choice may occur, that were not noted before signing the document and should not alter the intended clinical meaning. Medications: New sucralfate (Carafate) 1 g PO TID 90 tabs 0RF hyoscyamine sulfate 0.125 mg PO Q6H PRN 120 tabs 0RF dyspepsia 1 month pantoprazole 40 mg PO BID 60 tabs 2RF ]
[2025-04-07] MEDS: Lactated Ringers 1,000 ML 15 ML IV (14:01)
--- NOTE | 2025-04-07 14:45 | COLBX_PTH ---
PATIENT: RAKESH HEARN LOC: EN U#:[id number] AGE/SX: 49/F ROOM: RE04/07/[address]: Dr. Ron Horton DO : 1975 BED: DIS: 04/07/2025 SPEC #: [id number] RECD: 04/09/25 07:18 STATUS: ARIADNA REQ #: [id number] MITCHELL: 04/07/25 14:[address]: Ron Horton DEPT: SURGICAL PATHOLOGY RECD BY: Chad Alcala ENTERED: 04/09/25 10:42 SP TYPE: COLON BX OTHR DR: Juan Daniel Marrero, IGNITER CAPPER-C Tissues: A - Gastric mucous membrane B - Esophagus, NOS C - Ileum, NOS D - COLON BIOPSY Procedures: Immunohistochemical Stains Surgery Specimen Level IV HEADER OPERATION: Colonoscopy, EGD PRE-OP DIAGNOSIS: Abdominal pain, lower GI bleeding TISSUE SUBMITTED: A- Gastric body biopsy, B- Distal esophagus biopsy, C- Terminal ileum biopsy, D- Random colon biopsy MICROSCOPIC DIAGNOSIS A. Stomach, body, biopsy: - Oxyntic mucosa with mild chronic inflammation. - IHC negative for H. pylori organisms. B. Esophagus, distal, biopsy: - Squamous mucosa with reactive changes. - Columnar mucosa with goblet cell metaplasia - see note. - Negative for dysplasia. Note: The diagnosis depends on the location of the biopsy and the extent of the mucosal irregularity. If the biopsy originates from the tubular esophagus and the mucosal irregularity extends at least 1 cm above the top of the gastric folds, this represents Zaman mucosa. If the biopsy originates from the gastric cardia and/or the mucosal irregularity is less than 1 cm in extent, this represents intestinal metaplasia. C. Small intestine, terminal ileum, biopsy: - Small intestinal and colonic mucosa with no specific pathologic change. D. Colon, random, biopsy: - No specific pathologic change. - The histologic features of microscopic colitis are not demonstrated. MICROSCOPIC DESCRIPTION Slides are reviewed. All matched controls reacted appropriately. These tests were developed and their performance characteristics determined by [facility]. They may not have been cleared or approved by the [place]. Food and Drug Administration. The FDA has determined that such clearance or approval is not necessary. The above immunohistochemical markers and/or special stains have been reviewed by the Pathologist. GROSS DESCRIPTION A. Received in fixative is one container labeled with the patient's name and designated "Gastric body biopsy." The specimen consists of three irregular fragments of buckner tissue that measure <0.1 to 0.4 cm, smallest fragment unlikely to survive processing.. The specimen is totally submitted in one cassette. B. Received in fixative is one container labeled with the patient's name and designated "Distal esophagus biopsy." The specimen consists of two irregular fragments of buckner tissue that measure 0.1 and 0.3 cm. The specimen is totally submitted in one cassette. C. Received in fixative is one container labeled with the patient's name and designated "Terminal ileum biopsy." The specimen consists of multiple irregular fragments of buckner tissue that in aggregate measure 0.8 x 0.5 x 0.1 cm. The specimen is totally submitted in one cassette. D. Received in fixative is one container labeled with the patient's name and designated "Random colon biopsy." The specimen consists of multiple irregular fragments of buckner tissue that in aggregate measure 1 x 0.8 x 0.2 cm. The specimen is totally submitted in one cassette. CT 04/09/2025 CPT:41777y4,44424
--- NOTE | 2025-04-07 15:00 | SUR.PHASEI ---
Pt yelling at her primary nurse that she was incompetent, cusing and calling her names. The primary nurse was trying to take vitals and ask about her pain. pt continues to yell and said "this is how I wake up from anesthesia." This nurse took over this pt's care calmly spoke with pt, Dr. Horton came to bedside to talk with patient, he offered pt 30mg of toradol iv, however pt declined and asked to go home. pt did not want another set of vital signs, given drink and snack, started to eat right away, no signs of breathing difficulty. discontinued iv and moved to discharge room.
--- NOTE | 2025-04-07 15:07 | PRE.ANES_ITS ---
ASA Classification* ASA Classification ASA Classification: 3 (BMI > 40, COPD, Barretts esophagus) Assessment & Plan Anesthesia* Anesthesia Assessment Anesthesia Assessment: Discussed sedation and/or anesthesia options, risks, benefits, and alternatives with patient/parents/legal guardian/POA. Questions invited. The patient/parents/legal guardian/POA seems to understand and agrees to proceed with anesthesia plan. Reviewed the physical assessment, medical history, allergy history and patient home medications list prior to surgery/procedure/anesthetic and documented any changes. Performed airway and anesthesia risk assessments. Anesthesia Type Anesthesia Type: MAC History Source History Obtained from:: Patient and Chart Anesthesia Focused Assessment* Temperature: 98 F Pulse Rate: 80 Blood Pressure: 110/73 Respiratory Rate: 14 Pulse Ox: 99 Oxygen Delivery Method: Room Air Airway Assessment Mouth opens: >3 cm Mallampati Score: III Teeth Condition: Missing Neck Range of motion (ROM): Full ROM Labs Anesthesia Preop lab: CBC WBC, (4.4-11.0) 14.1 K/mm3 H 03/24/25, 11: RBC, (4.2-5.4) 4.99 M/mm3 03/24/25, 11:41 Hgb, (12.0-15.0) 14.2 g/dL 03/24/25, 11: Hct, (37-47) 43.0 % 03/24/25, 11:41 Plt Count, (150-450) 350 K/mm3 03/24/25, 11:41 CHEMISTRY Potassium, (3.3-5.1) 3.7 mmol/L 03/24/25, 11:41 Sodium, (133-145) 135 mmol/L 03/24/25, 11:41 Magnesium, (1.6-2.6) 2.2 mg/dL 08/22/23, 10:48 BUN, (4-19) 13 mg/dL 03/24/25, 11:41 Creatinine, (0.70-1.20) 0.81 mg/dL 03/24/25, 11:41 Glucose, (70-99) 133 mg/dL H 03/24/25, 11:41 POC Glucose, (74-106) 101 mg/dL Today, 13:44 TSH, (0.300-4.200) 2.670 uIU/mL 02/16/25, 10:27 COAG PT, (11.7-14.9) 13.2 SECONDS 02/16/25, 10:27 HCG, Quant, (<9 non-preg) 7 mIU/mL 03/24/25, 11:4 1 Urine Test Negative Negative 10/20/21, 15:00 Pre-Assessment Diagnosis/Proposed Procedure Planned Operative Procedure(s): COLONOSCOPY, EGD Anesthesia History 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 When Was Last Pacemaker Check QUESTION #4 FULL TEXT: You/Your Family Experience fever (hyperthermia) with Anesthesia Last Oral Intake Last Oral intake: Last Oral Intake NPO since 10:00 04/07/25 13:45 Meds taken in AM with sips of Yes 04/07/25 13:45 water? Meds patient instructed to see med list 04/07/25 13:45 take am of surgery PONV PONV - ship yard electrical person: PONV - ship yard electrical person Female Yes 04/05/25 14:54 HX of Motion Sickness No 04/05/25 14:54 HX of N/V After Surgery No 04/05/25 14:54 Non-Smoker No 04/05/25 14:54 Duration of Surgery greater No 04/05/25 14:54 than 60 minutes Number of Risk Factors 1 04/05/25 14:54 PONV Score Low Risk 04/05/25 14:54 Height & Weight Height & Weight: Anesthesia: Height & Weight Height 5 ft 5 in 04/07/25 13:45 Weight: 118 kg 04/07/25 13:45 Body Mass Index (BMI) 43.2 04/07/25 13:45 Respiratory Assessment Respiratory Assessment - ship yard electrical person: Respiratory Tract Infection Hx - ship yard electrical person Hx Respiratory Tract Infection No 04/05/25 14:54 STOP Sleep Apnea STOP Sleep Apnea - ship yard electrical person: STOP Sleep Apnea - ship yard electrical person Hx Hypertension Yes: CONTROLLED WITH MEDS 04/05/25 14:54 Hx Sleep Apnea Yes 04/05/25 14:54 CPAP No 04/05/25 14:54 BIPAP Yes: NON COMPLIANT 04/05/25 14:54 Do you snore loudly (louder than talking or can be heard Do you often feel tired/ fatigued/ sleepy during daytime? Has anyone observed you stop breathing during sleep? STOP Results Positive 04/05/25 14:54 QUESTION #5 FULL TEXT : Do you snore loudly (louder than talking or can be heard through closed doors)? Tobacco Use History Tobacco Use History - ship yard electrical person: Tobacco Use History - ship yard electrical person Tobacco Use Smoking Status Light Smoker (<10/day) 04/05/25 14:54 Hx Tobacco Use Yes 04/05/25 14:54 Years Smoking Packs Smoked per Day Smoking Cessation Date was within the last 15 years Hx Smoking Cessation Date Hx Smoking Cessation Yes 04/05/25 14:54 Counseling Hematologic Medial History Hematologic Hx - ship yard electrical person: Hematologic Medical Hx - hydropress operator Hx of Blood Transfusion No 04/05/25 14:54 Hx of Transfusion in last 3 No 04/05/25 14:54 Months Date of Last Transfusion (if within last 3 months) Ever experience any problems No 04/05/25 14:54 with transfusion(s)? Specify any problems Hx of Preganancy in last 3 No 04/05/25 14:54 Months Nurse Filling Out Transfusion [email or web address] 04/05/25 14:54 & Questions: Date: 04/05/25 04/05/25 14:54 Time: 14:57 04/05/25 14:54 Patient unable to answer at this time (ie. confused, unrespo /Reproduction History /Reproductive History - ship yard electrical person: /Reproductive Hx- ship yard electrical person Hx Now Gestational Age (in weeks): EDC: Hx Hx Para Hx Section SAB No 04/05/25 14:54 Does the father of the baby or his family experience fever w Father of the baby Malignant Hypertension history comment Active Medications Active Medications: Current Medications Generic Name Dose Route Start Last Admin Trade Name Freq PRN Reason Stop Dose Admin Lactated Ringer's 1,000 mls @ 15 mls/hr 04/07/25 13:45 04/07/25 14:01 IV 15 mls/hr .Q48H SELENE Administration PFSH Medical History Wears dentures Thyroid disease High cholesterol Shortness of breath on exertion Diabetes Fatty liver Back pain Dietary restriction Complete edentulism, class III Acute thoracic back pain Restless leg syndrome Palpitations Palpitations HTN (hypertension) Depression with anxiety Type 2 diabetes mellitus Dizziness Headache Generalized anxiety disorder Overactive bladder Stress incontinence BiPAP (biphasic positive airway pressure) dependence Cervical radiculopathy Abdominal pain Nausea and vomiting Gastroenteritis Lesion of bladder Fatigue MARGARITA (obstructive sleep apnea) COPD (chronic obstructive pulmonary disease) Bronchitis Costochondritis HTN (hypertension) MARGARITA (obstructive sleep apnea) UTI (urinary tract infection) Stress incontinence Wears glasses Depression Anxiety Arthritis Bladder disease History of renal disease History of hiatal hernia History of ulceration Gastric reflux History of edema History of stress test History of echocardiogram MARGARITA (obstructive sleep apnea) Pulmonary hypertension Intertriginous dermatitis associated with moisture Abdominal wall abscess Chronic back pain Left ankle pain Overactive bladder Chronic cough Smoker Venous insufficiency of both lower extremities Shortness of breath Fatty stools Diarrhea Fatigue Cancer of left kidney History of mononucleosis Asthma COPD (chronic obstructive pulmonary disease) Intestinal ulcer Anxiety and depression GERD (gastroesophageal reflux disease) H/O emotional problems Home Medications Medication Instructions Recorded Last Taken Type Handicap Placard #1 ea 11/28/20 Unknown Rx albuterol sulfate 90 mcg/actuation 2 inh inhalation Q4 H PRN Sob &/Or 03/21/22 09/16/23 Rx breath activated powder inhaler Wheezing #1 ea blood sugar diagnostic (FreeStyle #50 ea 08/10/22 Unkn own Rx Test strips) blood-glucose meter (FreeStyle #1 ea 08/10/22 Unknown Rx System Kit) lancets 28 gauge (FreeStyle #50 ea 08/10/22 Unknown Rx Lancets) metoprolol succinate 25 mg 25 mg PO BID #180 tabs 10/1304/07/25 04:00 Rx tablet,extended release 24 hr gabapentin 300 mg capsule 600 mg PO QHS RLS 08/27/23 0 09/16/23 History rosuvastatin 10 mg tablet 10 mg PO DAILY 07/21/24 Unkn own History Lactobacillus acidophilus 0.5 mg 0.5 mg PO DAILY 09/22 Unknown History (100 million cell) tablet hydrochlorothiazide 25 mg tablet 12.5 mg PO DAILY 09/10 08/04 Unknown History levothyroxine 75 mcg tablet 75 mcg PO DAILY 09/22/24 1 06/07/24 07:00 History lisinopril 20 mg tablet 20 mg PO DAILY 09/22/24 Unkn own History methenamine 81.6 mg-sod phos 40.8 1 tab PO .QID PRN bl adder spasms 03/23/25 Unknown Rx mg-methylene blue 0.12mg-hyos #90 tabs tablet (Urogesic-Blue) hyoscyamine sulfate 0.125 mg tablet 0.125 mg PO Q6H LA N dyspepsia 1 03/24/25 Unknown Rx month #120 tabs pantoprazole 40 mg tablet,delayed 40 mg PO BID #60 tab s 03/24/25 04/07/25 07:00 Rx release sucralfate 1 gram tablet (Carafate) 1 g PO TID #90 tab s 03/24/25 Unknown Rx tirzepatide 7.5 mg/0.5 mL 7.5 mg subcut QWEEK 03/24/25 03/24/25 History subcutaneous pen injector (Mounjaro) Allergy/AdvReac Type Severity Reaction Status Date / Time cefaclor (From Ceclor) Allergy Hives Verified 04/07/25 13:42 ciprofloxacin (From Cipro) Allergy Itching Verified 04/07/25 13:42 erythromycin base Allergy Upset Verified 04/07/25 13:42 (Erythromycin Base) Stomach moxifloxacin HCl (From Allergy Hives Verified 04/07/25 13:42 Avelox) sulfamethoxazole (From Allergy Unknown Verified 04/07/25 13:42 Bactrim) trimethoprim (From Bactrim) Allergy Unknown Verified 04/07/25 13:42 Family History Mother CVA (cerebral vascular accident) Thyroid disorder Ulcer Arthritis Father Diabetes Heart disease Myocardial infarction Arthritis Hypertension High cholesterol Skin cancer Son , age 17 Asthma Large B-cell lymphoma Other Anxiety Melanoma Respiratory disease Surgical History Hx of cystoscopy History of colonoscopy History of cystoscopy Hx of cystoscopy History of cystoscopy Hx of hysterectomy Hx of cystoscopy History of esophagogastroduodenoscopy (EGD) (~01/20/20) Hx of nasal septoplasty Hx of prior ablation treatment Hx of tonsillectomy Hx of cholecystectomy History of lymph node biopsy History of tonsillectomy History of partial hysterectomy History of ankle surgery History of sinus surgery Social History household members: children Smoking Status: Light Smoker (<10/day) Tobacco: How many years used: 25 alcohol intake: never substance use type: does not use what type of physical activity do you participate in: none do you feel safe at home: Yes Review of Systems (Anesthesia) ROS Narrative System reviewed and no additional complaints, except as documented. Physical Exam Const alert and oriented x3 Nutritional Appearance: morbidly obese Resp normal respiratory effort, normal air movement and clear to auscultation bilaterally Cardio regular rate, regular rhythm and no murmurs; Negative for diaphoretic
[2025-04-07] MEDS: Lidocaine 1% (5 ml sdv) 5 ML Vial IV (15:14)
[2025-04-07] MEDS: Lactated Ringers 500 ML IV (15:14)
--- NOTE | 2025-04-07 15:46 | PCM.POST.ANE ---
Anesthesia: Postop Eval I Current Vital Signs Temperature: 97 F Pulse Rate: 81 Blood Pressure: 104/42 Respiratory Rate: 18 Pulse Ox: 100 Oxygen Delivery Method: Room Air Assessment Airway patent: Yes Spontaneous unlabored respirations: Yes Mental status: Awake and Calm nausea: No Vomiting: No Anesthesia Complication: No Fluid Hydration Crystalloid volume administer (ml): 500 Total IV fluid infused: 500 Progress Note Anesthesia document: Postop Eval 1 completed: Yes
--- NOTE | 2025-04-07 15:52 | OP.COLON_ITS ---
Patient Name: Odette Burrows Procedure Date: 04/07/2025 3:25 PM Date of : 1975 Age: 49 Procedure: Colonoscopy Indications: Generalized abdominal pain, Clinically significant diarrhea of unexplained origin Providers: Ron Horton DO Medicines: Monitored Anesthesia Care Patient Profile: This is a 49 year old female. Refer to note in patient chart for documentation of history and physical. Last Colonoscopy: several years ago. Complications: No immediate complications. Procedure: Pre-Anesthesia Assessment: - Prior to the procedure, a History and Physical was performed, and patient medications and allergies were reviewed. The patient is competent. The risks and benefits of the procedure and the sedation options and risks were discussed with the patient. All questions were answered and informed consent was obtained. Patient identification and proposed procedure were verified by the physician in the pre-procedure area. Mental Status Examination: alert and oriented. Airway Examination: normal oropharyngeal airway and neck mobility. Respiratory Examination: clear to auscultation. CV Examination: normal. Prophylactic Antibiotics: The patient does not require prophylactic antibiotics. Prior Anticoagulants: The patient has taken no anticoagulant or antiplatelet agents except for NSAID medication. ASA Grade Assessment: II - A patient with mild systemic disease. After reviewing the risks and benefits, the patient was deemed in satisfactory condition to undergo the procedure. The anesthesia plan was to use monitored anesthesia care (MAC). Immediately prior to administration of medications, the patient was re-assessed for adequacy to receive sedatives. The heart rate, respiratory rate, oxygen saturations, blood pressure, adequacy of pulmonary ventilation, and response to care were monitored throughout the procedure. The physical status of the patient was re-assessed after the procedure. After I obtained informed consent, the scope was passed under direct vision. Throughout the procedure, the patient's blood pressure, pulse, and oxygen saturations were monitored continuously. The pediatric colonoscope was introduced through the anus and advanced to the terminal ileum. Scope In: 3:28:42 PM Scope Withdrawal Time 0 hours 10 minutes 10 seconds Scope Out: 3:44:12 PM Total Procedure Duration Time 0 hours 15 minutes 30 seconds Findings: The perianal and digital rectal examinations were normal. An area of mildly congested mucosa was found in the entire colon. Biopsies were taken with a cold forceps for histology. Verification of patient identification for the specimen was done. Estimated blood loss was minimal. A patchy area of the terminal ileum was congested. Biopsies were taken with a cold forceps for histology. Verification of patient identification for the specimen was done. Estimated blood loss was minimal. Impression: - Congested mucosa in the entire examined colon. Biopsied. - Congested mucosa in the terminal ileum. Biopsied. Recommendation: - Discharge patient to home. - Resume previous diet. - Continue present medications. - Await pathology results. - Repeat colonoscopy in 5 years for surveillance. Procedure Code(s): --- Professional --- 76618, Colonoscopy, flexible; with biopsy, single or multiple CPT copyright 2021 [employer]. All rights reserved. The codes documented in this report are preliminary and upon cash applications specialist review may be revised to meet current compliance requirements. Ron Horton DO 04/07/2025 3:51:25 PM This report has been signed electronically. Number of Addenda: 0 Note Initiated On: 04/07/2025 3:25 PM
--- NOTE | 2025-04-07 15:52 | OP.PROVAT_ITS ---
04/07/2025 Juan Daniel Marrero [facility], Gymnastics Instructor-c Re : Colonoscopy procedure for Odette Burrows Dear Janes This procedure was performed on Monday, April 07, 2025. My impressions and recommendations are as follows: Impressions : - Congested mucosa in the entire examined colon. Biopsied. - Congested mucosa in the terminal ileum. Biopsied. Recommendations : - Discharge patient to home. - Resume previous diet. - Continue present medications. - Await pathology results. - Repeat colonoscopy in 5 years for surveillance. My findings are described in the full procedure note, which is enclosed. If I can be of further assistance, please feel free to contact me at . Sincerely, Ron Horton, 04/07/2025 3:51:25 PM This report has been signed electronically.
--- NOTE | 2025-04-07 15:55 | OP.PROVAT_ITS ---
04/07/[address] [facility], Nougat Cutter Machine-c Re : Upper GI endoscopy procedure for Odette Burrows Dear Janes This procedure was performed on Monday, April 07, 2025. My impressions and recommendations are as follows: Impressions : - No gross lesions in the entire esophagus. - Z-line irregular, 40 cm from the incisors. Biopsied. - Small hiatal hernia. - Bile gastritis. Biopsied. - Erythematous duodenopathy. Biopsied. Recommendations : - Discharge patient to home. - Resume previous diet. - Continue present medications. - Await pathology results. My findings are described in the full procedure note, which is enclosed. If I can be of further assistance, please feel free to contact me at . Sincerely, Ron Horton, 04/07/2025 3:54:58 PM This report has been signed electronically.
--- NOTE | 2025-04-07 15:55 | OP.EGD_ITS ---
Patient Name: Odette Burrows Procedure Date: 04/07/2025 3:04 PM Date of : 1975 Age: 49 Procedure: Upper GI endoscopy Indications: Functional Dyspepsia, Suspected esophageal reflux Providers: Ron Horton DO Medicines: Monitored Anesthesia Care Patient Profile: This is a 49 year old female. Refer to note in patient chart for documentation of history and physical. Patient has symptoms of chronic epigastric abdominal pain. Complications: No immediate complications. Procedure: Pre-Anesthesia Assessment: - Prior to the procedure, a History and Physical was performed, and patient medications and allergies were reviewed. The patient is competent. The risks and benefits of the procedure and the sedation options and risks were discussed with the patient. All questions were answered and informed consent was obtained. Patient identification and proposed procedure were verified by the physician in the pre-procedure area. Mental Status Examination: alert and oriented. Airway Examination: normal oropharyngeal airway and neck mobility. Respiratory Examination: clear to auscultation. CV Examination: normal. Prophylactic Antibiotics: The patient does not require prophylactic antibiotics. Prior Anticoagulants: The patient has taken no anticoagulant or antiplatelet agents except for NSAID medication. ASA Grade Assessment: II - A patient with mild systemic disease. After reviewing the risks and benefits, the patient was deemed in satisfactory condition to undergo the procedure. The anesthesia plan was to use monitored anesthesia care (MAC). Immediately prior to administration of medications, the patient was re-assessed for adequacy to receive sedatives. The heart rate, respiratory rate, oxygen saturations, blood pressure, adequacy of pulmonary ventilation, and response to care were monitored throughout the procedure. The physical status of the patient was re-assessed after the procedure. After obtaining informed consent, the endoscope was passed under direct vision. Throughout the procedure, the patient's blood pressure, pulse, and oxygen saturations were monitored continuously. The pediatric colonoscope was introduced through the mouth, and advanced to the fourth part of the duodenum. Small bowel enteroscopy was deemed necessary. The upper GI endoscopy was accomplished without difficulty. The patient tolerated the procedure well. Scope In: 3:22:10 PM Scope Out: 3:25:25 PM Total Procedure Duration Time 0 hours 3 minutes 15 seconds Findings: No gross lesions were noted in the entire esophagus. The Z-line was irregular and was found 40 cm from the incisors. Biopsies were taken with a cold forceps for histology. Verification of patient identification for the specimen was done. Estimated blood loss was minimal. A small hiatal hernia was present. Diffuse moderate inflammation characterized by erosions and erythema was found in the gastric body. Biopsies were taken with a cold forceps for histology. Biopsies were taken with a cold forceps for Helicobacter pylori testing. Verification of patient identification for the specimen was done. Estimated blood loss was minimal. Patchy mildly erythematous mucosa without active bleeding and with no stigmata of bleeding was found in the entire duodenum. Biopsies were taken with a cold forceps for histology. Verification of patient identification for the specimen was done. Estimated blood loss was minimal. Impression: - No gross lesions in the entire esophagus. - Z-line irregular, 40 cm from the incisors. Biopsied. - Small hiatal hernia. - Bile gastritis. Biopsied. - Erythematous duodenopathy. Biopsied. Recommendation: - Discharge patient to home. - Resume previous diet. - Continue present medications. - Await pathology results. Procedure Code(s): --- Professional --- 16476, Small intestinal endoscopy, enteroscopy beyond second portion of duodenum, not including ileum; with biopsy, single or multiple CPT copyright 2021 [employer]. All rights reserved. The codes documented in this report are preliminary and upon bodywork therapist review may be revised to meet current compliance requirements. Ron Horton DO 04/07/2025 3:54:58 PM This report has been signed electronically. Number of Addenda: 0 Note Initiated On: 04/07/2025 3:04 PM
--- NOTE | 2025-04-07 17:01 | POSTOPAN2_ITS ---
Anesthesia Postop Eval I Sum Postop Eval Completion status Anesthesia document: Postop Eval 1 completed: Yes Anesthesia Postop Eval I Summary Anesthesia Postop Eval I Summary: Anesthesia Postop Eval I: Assessment Summary Airway patent Yes 04/07/25 15:46 TRENCH PIPE LAYER HELPER.[email or web address] Spontaneous unlabored Yes 04/07/25 15:46 TRENCH PIPE LAYER HELPER.GDOTT respirations Mental status Awake,Calm 04/07/25 15:46 TRENCH PIPE LAYER HELPER.GDOTT nausea No 04/07/25 15:46 TRENCH PIPE LAYER HELPER.GDOTT Vomiting No 04/07/25 15:46 TRENCH PIPE LAYER HELPER.GDOTT Anesthesia Postop Eval I: Fluid Summary Crystalloid volume administer 500 04/07/25 15:46 TRENCH PIPE LAYER HELPER.GDOTT (ml) Colloids volume administered ( ml) Blood Product volume administered (ml) Total IV fluid infused 500 04/07/25 15:46 TRENCH PIPE LAYER HELPER.GDOTT Anesthesia Postop Eval I: Summary Notes Anesthesia Complication No 04/07/25 15:46 TRENCH PIPE LAYER HELPER.GDOTT Anesthesia Complication Comment: Post-operative progress note Anesthesia: Postop Eval II Evaluation Mental status: Awake Pain Level: 0 nausea: No Vomiting: No Complications Anesthesia Complication: No
--- NOTE | 2025-04-07 17:01 | PCM.POSTANE2 ---
Anesthesia Postop Eval I Sum Postop Eval Completion status Anesthesia document: Postop Eval 1 completed: Yes Anesthesia Postop Eval I Summary Anesthesia Postop Eval I Summary: Anesthesia Postop Eval I: Assessment Summary Airway patent Yes 04/07/25 15:46 YOUTH CORRECTIONS OFFICER.[email or web address] Spontaneous unlabored Yes 04/07/25 15:46 YOUTH CORRECTIONS OFFICER.GDOTT respirations Mental status Awake,Calm 04/07/25 15:46 YOUTH CORRECTIONS OFFICER.GDOTT nausea No 04/07/25 15:46 YOUTH CORRECTIONS OFFICER.GDOTT Vomiting No 04/07/25 15:46 YOUTH CORRECTIONS OFFICER.GDOTT Anesthesia Postop Eval I: Fluid Summary Crystalloid volume administer 500 04/07/25 15:46 YOUTH CORRECTIONS OFFICER.GDOTT (ml) Colloids volume administered ( ml) Blood Product volume administered (ml) Total IV fluid infused 500 04/07/25 15:46 YOUTH CORRECTIONS OFFICER.GDOTT Anesthesia Postop Eval I: Summary Notes Anesthesia Complication No 04/07/25 15:46 YOUTH CORRECTIONS OFFICER.GDOTT Anesthesia Complication Comment: Post-operative progress note Anesthesia: Postop Eval II Evaluation Mental status: Awake Pain Level: 0 nausea: No Vomiting: No Complications Anesthesia Complication: No
== END 2025-04-07 16:35 | disposition home or self-care (01) ==
LOC: EN 13:26 → AC 13:27
PROVIDERS: PCP Nurse Practitioner Family; Referring Provider Nurse Practitioner Family; Visit Provider Internal Medicine Gastroenterology
PROC: 0DJD8ZZ Inspection of Lower Intestinal Tract, Via Natural or Artificial Opening Endoscopic (ICD-10-PCS; CPT 45378; principal; 2025-04-07 14:40)
DX: K29.71 Gastritis, unspecified, with bleeding (principal); J44.9 Chronic obstructive pulmonary disease, unspecified; E11.9 Type 2 diabetes mellitus without complications; Z79.899 Other long term (current) drug therapy; E78.00 Pure hypercholesterolemia, unspecified; Z90.710 Acquired absence of both cervix and uterus; I10 Essential (primary) hypertension; K63.89 Other specified diseases of intestine; K44.9 Diaphragmatic hernia without obstruction or gangrene; K21.01 Gastro-esophageal reflux disease with esophagitis, with bleeding; G47.33 Obstructive sleep apnea (adult) (pediatric); Z99.81 Dependence on supplemental oxygen; Z90.49 Acquired absence of other specified parts of digestive tract; F17.290 Nicotine dependence, other tobacco product, uncomplicated; R10.84 Generalized abdominal pain; K29.50 Unspecified chronic gastritis without bleeding; K22.89 Other specified disease of esophagus; K31.A19 Gastric intestinal metaplasia without dysplasia, unspecified site
CPT/HCPCS: 44361; 45380; 82962; 88305; 88342